=== PATIENT | female | born 1970 | race Caucasian/White ===

== ENCOUNTER 2021-02-23 14:30 | Emergency (ER) | payer MEDICAID, SELFPAY ==
[2021-02-23 14:36] VITALS: BP 152/103; PULSE 93; RESP 20; TEMP 36.8; O2SAT 98
--- NOTE | 2021-02-23 14:58 | XR_ITS ---
WS: [id number] Portable AP upright chest, 02/23/2021 Clinical Data: dyspnea/cough Comparison: Portable chest, 10/17/2018. Findings: No nodules, masses or effusions are seen. The heart is normal. The pulmonary vascularity is not increased. No pneumonia or pneumothorax is seen. There are clips in the right upper quadrant fro m a cholecystectomy. XR/XR chest 1V portable [id number] Impression: Negative chest.
--- NOTE | 2021-02-23 16:07 | ED_ITS ---
Documented by User: Susan Mcmanus 02/23/21 16:38 HPI - SOB/Dyspnea General: Chief Complaint: Shortness of Breath/Dyspnea Stated Complaint: DIFF BREATHING, ELEV TEMP, N/V, COUGH/HX ASTHMA Time Seen by Provider: 02/23/21 16:02 Source: patient Mode of arrival: ambulatory History of Present Illness: HPI Narrative: fever, chills, NVD, sinus pressure, SOB MD elicited complaint: shortness of breath and cough Severity: moderate Exacerbating factors: coughing Associated symptoms: Reports cough, fever(s), nausea and vomiting Review of Systems General: Reports: 10 or more systems reviewed and unremarkable except in HPI and below Const: Reports: fever(s), chills and body aches ENMT: Denies: throat pain Resp: Reports: dyspnea GI: Reports: nausea, vomiting and diarrhea Physical Exam Const: COMMON NORMALS: no acute distress, patient oriented x3, no limitations and alert GENERAL APPEARANCE: cooperative and comfortable ORIENTATION/CONSCIOUSNESS: Yes awake, Yes oriented to person, Yes oriented to place and Yes oriented to time HENMT: COMMON NORMALS: normocephalic, atraumatic, external ears normal, EAC's normal, TM's normal bilaterally and Normal external nose present HEAD & SCALP: normal to inspection, normocephalic and atraumatic FACE & SINUS: normal facial exam, sinuses nontender and face symmetric NOSE: Normal external nose present, Normal nares present and No nasal discharge present EXTERNAL EAR: Yes external ears normal EXTERNAL AUDITORY CANAL: EAC's normal TYMPANIC MEMBRANE: TM's normal bilaterally MOUTH: Normal oral and palatal mucosa present, lip normal and tongue normal THROAT: posterior oropharynx normal, tonsils normal and uvula midline Eye: COMMON NORMALS: Equal, round and reactive pupils present, EOMs intact bilaterally and conjunctivae normal GENERAL EYE: appearance normal, both eyes and all related structures and normal light reflex EYELID: eyelids normal CONJUNCTIVA: Yes conjunctivae normal PUPIL: Yes Equal, round and reactive pupils present EOM: Yes EOM abnormal DIRECT OPHTHALMOSCOPY: Yes normal light reflex Neck/C-Spine: COMMON NORMALS: full ROM, no lymphadenopathy, supple, no meningeal signs, no JVD and Thyroid normal GENERAL: Yes normal visual inspection THYROID: Thyroid normal CERVICAL SPINE: Yes cervical ROM normal and Yes normal cervical lordosis Lymph: LYMPHATIC: no lymphadenopathy noted Chest: COMMONS NORMALS: normal inspection of the chest and normal palpation of entire chest wall Resp: COMMON NORMALS: normal respiratory effort, No retractions and clear to auscultation bilaterally AUSCULTATION: clear to auscultation bilaterally Cardio: COMMON NORMALS: no JVD, regular rate, regular rhythm, S1 normal heart sound present, S2 normal heart sound present, No gallops present (Cardio), No clicks present (Cardio), No murmurs present (Cardio), No rub (Cardio) and Per ipheral pulses 2+ throughout RATE: regular rate RHYTHM: regular rhythm HEART SOUNDS: S1 normal heart sound present and S2 normal heart sound present PERIPHERAL PULSES: Peripheral pulses 2+ throughout GI: COMMON NORMALS: Normal to inspection, nondistended, normoactive bowel sounds present, Soft to palpation, non-tender and no masses PALPATION: Yes Soft to palpation : COMMON NORMALS: Yes no CVA tenderness and Yes normal external appearance BLADDER/KIDNEY EXAM: Yes no CVA tenderness Back/Pelvis: COMMON NORMALS: no CVA tenderness, thoracic and lumbar spine normal to inspection, no thoracic nor lumbar tenderness and thoraco-lumbar ROM normal Extremity: COMMON NORMALS: normal to inspection, full ROM, capillary refill normal, no joint enlargement, no clubbing, cyanosis or edema, no calf tenderness and no pedal edema GENERAL: Yes normal exam except as noted Neuro: COMMON NORMALS: patient oriented x3, moves all extremities, no focal motor deficits, no sensory deficits noted and gait normal SENSORIU M/ORIENTATION: Yes alert, Yes oriented to person, Yes oriented to place and Yes oriented to time MENINGEAL SIGNS: Yes no meningeal signs Psych: COMMON NORMALS: mental status grossly normal, Normal thought process present, cooperative, normal affect, speech normal and activity/motor behavior normal SPEECH: Yes normal speech THOUGHT PROCESS: Normal thought process present Skin: COMMON NORMALS: no rashes or lesions noted, no wounds and turgor normal GENERAL SKIN EXAM: no rashes or lesions noted and turgor normal Course ED course: Pt presents to Er with complaints of sinus pressure, NVD, fever, chills, and coughing. CXR is negative for pneumonia. Labs drawn and are awaiting flu and covid swabs. IV fluids and breathing tx ordered. Vital Signs: Vital signs: Vital Signs Temperature 98.3 F 02/23/21 14:36 Pulse Rate 90 02/23/21 18:20 Respiratory Rate 18 02/23/21 18:20 Blood Pressure 136/99 02/23/21 18:20 Pulse Oximetry 97 02/23/21 18:20 MDM - SOB/Dyspnea Lab Data: Labs: Lab Results 02/23/21 02/23/21 02/23/21 Range/Units 17:00 17:00 17:00 WBC 6.1 (4.0-10.0) 10^3/ uL RBC 4.66 (4.1-5.3) 10^6/u L Hgb 13.5 (11.5-15.3) g/dL Hct 43.7 (37.0-47.0) % MCV 93.8 (81-99) fL MCH 29.0 (28.0-34.0) pg MCHC 30.9 (30.0-36.0) g/dL RDW 13.7 (12.1-15.1) % Plt Count 268 (130-400) 10^3/c mm MPV 10.3 (7.4-10.4) fL Neut % (Auto) 60.9 % Lymph % (Auto) 24.4 % [place] % (Auto) 10.7 % Eos % (Auto) 3.1 % Baso % (Auto) 0.7 % Neut # (Auto) 3.74 (1.8-7.7) 10^3/u L Lymph # (Auto) 1.5 (0.8-4.8) 10^3/u L [place] # (Auto) 0.7 (0.2-0.9) 10^3/u L Eos # (Auto) 0.2 (0.0-0.8) 10^3/u L Baso # (Auto) 0.0 (0.0-0.1) 10^3/u L Nucleated RBC % (a uto) 0 % Nucleated RBCs # 0.0 /100WBC Sodium 139 (136-145) mmol/L Potassium 4.0 (3.5-5.1) mmol/L Chloride 102 (98-107) mmol/L Carbon Dioxide 25 (22-29) mmol/L Anion Gap 16.0 (5-19) BUN 10 (6-20) mg/dL Creatinine 0.5 (0.5-0.9) mg/dL GFR Calculation 131.1 H (90-130) mL/min Glucose 95 (65-115) mg/dL Calculated Osmolal ity 287 (285-295) mOsm/k g Calcium 8.2 L (8.5-10.5) mg/dL Total Bilirubin 0.7 (0.15-1.2) mg/dL AST 10 (0-32) U/L ALT 9 (0-33) U/L Alkaline Phosphata se 99 (35-105) IU/L Total Protein 6.6 (6.6-8.7) g/dL Albumin 3.9 (3.5-5.2) g/dL Globulin 2.7 (1.3-4.6) g/dL Urine Color (Yellow) Urine Appearance (CLEAR) Urine pH (5-7) Ur Specific Gravit y (1.005-1.030) Urine Protein (Negative) Urine Glucose (UA) (Normal) Urine Ketones (Negative) Urine Blood (Negative) Urine Nitrate (Negative) Urine Bilirubin (Negative) Urine Urobilinogen (Negative) mg/dL Ur Leukocyte Radha ase (Negative) Urine RBC (0-2) /hpf Urine WBC (0-5) /hpf Ur Squamous Epith Cells (0-5) /hpf Amorphous Sediment Urine Bacteria (NONE) /hpf Influenza Type A A g Negative (Negative) Influenza Type B A g Negative (Negative) 02/23/21 Range/Units 17:00 WBC (4.0-10.0) 10^3/ uL RBC (4.1-5.3) 10^6/u L Hgb (11.5-15.3) g/dL Hct (37.0-47.0) % MCV (81-99) fL MCH (28.0-34.0) pg MCHC (30.0-36.0) g/dL RDW (12.1-15.1) % Plt Count (130-400) 10^3/c mm MPV (7.4-10.4) fL Neut % (Auto) % Lymph % (Auto) % [place] % (Auto) % Eos % (Auto) % Baso % (Auto) % Neut # (Auto) (1.8-7.7) 10^3/u L Lymph # (Auto) (0.8-4.8) 10^3/u L [place] # (Auto) (0.2-0.9) 10^3/u L Eos # (Auto) (0.0-0.8) 10^3/u L Baso # (Auto) (0.0-0.1) 10^3/u L Nucleated RBC % (a uto) % Nucleated RBCs # /100WBC Sodium (136-145) mmol/L Potassium (3.5-5.1) mmol/L Chloride (98-107) mmol/L Carbon Dioxide (22-29) mmol/L Anion Gap (5-19) BUN (6-20) mg/dL Creatinine (0.5-0.9) mg/dL GFR Calculation (90-130) mL/min Glucose (65-115) mg/dL Calculated Osmolal ity (285-295) mOsm/k g Calcium (8.5-10.5) mg/dL Total Bilirubin (0.15-1.2) mg/dL AST (0-32) U/L ALT (0-33) U/L Alkaline Phosphata se (35-105) IU/L Total Protein (6.6-8.7) g/dL Albumin (3.5-5.2) g/dL Globulin (1.3-4.6) g/dL Urine Color Straw (Yellow) Urine Appearance Clear (CLEAR) Urine pH 7 (5-7) Ur Specific Gravit y 1.010 (1.005-1.030) Urine Protein Neg (Negative) Urine Glucose (UA) Norm (Normal) Urine Ketones Negative (Negative) Urine Blood 2+ H (Negative) Urine Nitrate Negative (Negative) Urine Bilirubin Neg (Negative) Urine Urobilinogen 1 H (Negative) mg/dL Ur Leukocyte Radha ase Negative (Negative) Urine RBC 0-4 H (0-2) /hpf Urine WBC 0-4 H (0-5) /hpf Ur Squamous Epith Cells 10-15 H (0-5) /hpf Amorphous Sediment Not Reportable Urine Bacteria Trace (NONE) /hpf Influenza Type A A g (Negative) Influenza Type B A g (Negative) Imaging Data^: Other Xray: Radiologist's impression: [address] [address] XRay Report Signed Patient: Nani Hernandez Unit #: [id number] : 1970 Age/Sex: 50 / F ADM Date: 02/23/21 Loc: ER Room/Bed: Attending Dr: Ordering Provider/Ordering MD: Juan Sutton DO Date of Service: 02/23/21 Procedure(s): XR chest 1V portable [id number] Accession Number(s): [id number] Report Number: [id number] WS: [id number] Portable AP upright chest, 02/23/2021 Clinical Data: dyspnea/cough Comparison: Portable chest, 10/17/2018. Findings: No nodules, masses or effusions are seen. The heart is normal. The pulmonary vascularity is not increased. No pneumonia or pneumothorax is seen. There are clips in the right upper quadrant from a cholecystectomy. XR/XR chest 1V portable [id number] Impression: Negative chest. Dictated By: Isabel Combs MD Signed By: Isabel Combs MD Signed Date/Time: 02/23/211539 DD/ 1539 Discharge Plan Discharge Patient Disposition: Home Clinical Impression: Acute viral syndrome Condition: Stable Prescriptions: No Action prazosin 1 mg Capsule 1 mg PO BEDTIME RF: 0 hydroxyzine HCl 50 mg Tablet 50 mg PO TID PRN (Reason: Anxiety) RF: 0 amlodipine 5 mg Tablet 5 mg PO BEDTIME RF: 0 meloxicam 7.5 mg Tablet 7.5 mg PO DAILY RF: 0 candesartan 16 mg Tablet 16 mg PO BID RF: 0 hydrochlorothiazide 25 mg Tablet 25 mg PO DAILY RF: 0 hydroxychloroquine 200 mg Tablet 200 mg PO BID RF: 0 albuterol sulfate 90 mcg/actuation Hfa Aerosol Inhaler 2 puff INHALATION 6XD PRN (Reason: Shortness Of Breath) RF: 0 naproxen 500 mg Tablet 500 mg PO BID RF: 0 Aimovig Autoinjector 140 mg/mL Auto-Injector 140 mg SUBCUT Q30D RF: 0 Zoloft 100 mg Tablet 100 mg PO DAILY RF: 0 chlorthalidone 50 mg Tablet 50 mg PO DAILY RF: 0 pantoprazole 40 mg Tablet,Delayed Release (Dr/Ec) 40 mg PO DAILY RF: 0 Benadryl 25 mg Capsule 25 mg PO BEDTIME PRN (Reason: Insomnia) RF: 0 Depakote ER 500 mg Tablet Extended Release 24 Hr 1,500 mg PO BEDTIME RF: 0 trazodone 300 mg Tablet 300 mg PO BEDTIME RF: 0 aspirin 81 mg Tablet,Chewable 81 mg PO DAILY RF: 0 gabapentin 100 mg Capsule 100 mg PO TID RF: 0 Abilify 10 mg Tablet 10 mg PO DAILY RF: 0 Discharge Orders: Discharge ED (Routine); Ordered 02/23/21 Ordered By: Eladio Whitman Referrals: Ruba Cabrera DO [Primary Care Provider] - Discharge Diet: Usual diet Discharge Activity: Increase activity as tolerated Patient Instructions: Viral Syndrome (ED) Activity Restrictions/Additional Instructions: Drink plenty of fluids. Can take Tylenol and/or ibuprofen for fever. Follow-up your family medical doctor if no significant improvement. Off work tomorrow. Stand Alone Forms: Work/School Release Coding Level of Care Code ED Clinical Trial Educator for Chg Fwd Exam Comprehensive Documented by User: SHELTON Larose 02/23/21 21:09 HPI - SOB/Dyspnea General: Chief Complaint: Shortness of Breath/Dyspnea Stated Complaint: DIFF BREATHING, ELEV TEMP, N/V, COUGH/HX ASTHMA Time Seen by Provider: 02/23/21 16:02 Course Vital Signs: Vital signs: Vital Signs Temperature 98.3 F 02/23/21 14:36 Pulse Rate 90 02/23/21 18:20 Respiratory Rate 18 02/23/21 18:20 Blood Pressure 136/99 02/23/21 18:20 Pulse Oximetry 97 02/23/21 18:20 MDM - SOB/Dyspnea MDM Narrative: Medical decision making narrative: Patient feeling much better on discharge labs normal. X-ray looks good. Patient follow-up family provider Lab Data: Labs: Lab Results 02/23/21 02/23/21 02/23/21 Range/Units 17:00 17:00 17:00 WBC 6.1 (4.0-10.0) 10^3/ uL RBC 4.66 (4.1-5.3) 10^6/u L Hgb 13.5 (11.5-15.3) g/dL Hct 43.7 (37.0-47.0) % MCV 93.8 (81-99) fL MCH 29.0 (28.0-34.0) pg MCHC 30.9 (30.0-36.0) g/dL RDW 13.7 (12.1-15.1) % Plt Count 268 (130-400) 10^3/c mm MPV 10.3 (7.4-10.4) fL Neut % (Auto) 60.9 % Lymph % (Auto) 24.4 % [place] % (Auto) 10.7 % Eos % (Auto) 3.1 % Baso % (Auto) 0.7 % Neut # (Auto) 3.74 (1.8-7.7) 10^3/u L Lymph # (Auto) 1.5 (0.8-4.8) 10^3/u L [place] # (Auto) 0.7 (0.2-0.9) 10^3/u L Eos # (Auto) 0.2 (0.0-0.8) 10^3/u L Baso # (Auto) 0.0 (0.0-0.1) 10^3/u L Nucleated RBC % (a uto) 0 % Nucleated RBCs # 0.0 /100WBC Sodium 139 (136-145) mmol/L Potassium 4.0 (3.5-5.1) mmol/L Chloride 102 (98-107) mmol/L Carbon Dioxide 25 (22-29) mmol/L Anion Gap 16.0 (5-19) BUN 10 (6-20) mg/dL Creatinine 0.5 (0.5-0.9) mg/dL GFR Calculation 131.1 H (90-130) mL/min Glucose 95 (65-115) mg/dL Calculated Osmolal ity 287 (285-295) mOsm/k g Calcium 8.2 L (8.5-10.5) mg/dL Total Bilirubin 0.7 (0.15-1.2) mg/dL AST 10 (0-32) U/L ALT 9 (0-33) U/L Alkaline Phosphata se 99 (35-105) IU/L Total Protein 6.6 (6.6-8.7) g/dL Albumin 3.9 (3.5-5.2) g/dL Globulin 2.7 (1.3-4.6) g/dL Urine Color (Yellow) Urine Appearance (CLEAR) Urine pH (5-7) Ur Specific Gravit y (1.005-1.030) Urine Protein (Negative) Urine Glucose (UA) (Normal) Urine Ketones (Negative) Urine Blood (Negative) Urine Nitrate (Negative) Urine Bilirubin (Negative) Urine Urobilinogen (Negative) mg/dL Ur Leukocyte Radha ase (Negative) Urine RBC (0-2) /hpf Urine WBC (0-5) /hpf Ur Squamous Epith Cells (0-5) /hpf Amorphous Sediment Urine Bacteria (NONE) /hpf Influenza Type A A g Negative (Negative) Influenza Type B A g Negative (Negative) 02/23/21 Range/Units 17:00 WBC (4.0-10.0) 10^3/ uL RBC (4.1-5.3) 10^6/u L Hgb (11.5-15.3) g/dL Hct (37.0-47.0) % MCV (81-99) fL MCH (28.0-34.0) pg MCHC (30.0-36.0) g/dL RDW (12.1-15.1) % Plt Count (130-400) 10^3/c mm MPV (7.4-10.4) fL Neut % (Auto) % Lymph % (Auto) % [place] % (Auto) % Eos % (Auto) % Baso % (Auto) % Neut # (Auto) (1.8-7.7) 10^3/u L Lymph # (Auto) (0.8-4.8) 10^3/u L [place] # (Auto) (0.2-0.9) 10^3/u L Eos # (Auto) (0.0-0.8) 10^3/u L Baso # (Auto) (0.0-0.1) 10^3/u L Nucleated RBC % (a uto) % Nucleated RBCs # /100WBC Sodium (136-145) mmol/L Potassium (3.5-5.1) mmol/L Chloride (98-107) mmol/L Carbon Dioxide (22-29) mmol/L Anion Gap (5-19) BUN (6-20) mg/dL Creatinine (0.5-0.9) mg/dL GFR Calculation (90-130) mL/min Glucose (65-115) mg/dL Calculated Osmolal ity (285-295) mOsm/k g Calcium (8.5-10.5) mg/dL Total Bilirubin (0.15-1.2) mg/dL AST (0-32) U/L ALT (0-33) U/L Alkaline Phosphata se (35-105) IU/L Total Protein (6.6-8.7) g/dL Albumin (3.5-5.2) g/dL Globulin (1.3-4.6) g/dL Urine Color Straw (Yellow) Urine Appearance Clear (CLEAR) Urine pH 7 (5-7) Ur Specific Gravit y 1.010 (1.005-1.030) Urine Protein Neg (Negative) Urine Glucose (UA) Norm (Normal) Urine Ketones Negative (Negative) Urine Blood 2+ H (Negative) Urine Nitrate Negative (Negative) Urine Bilirubin Neg (Negative) Urine Urobilinogen 1 H (Negative) mg/dL Ur Leukocyte Radha ase Negative (Negative) Urine RBC 0-4 H (0-2) /hpf Urine WBC 0-4 H (0-5) /hpf Ur Squamous Epith Cells 10-15 H (0-5) /hpf Amorphous Sediment Not Reportable Urine Bacteria Trace (NONE) /hpf Influenza Type A A g (Negative) Influenza Type B A g (Negative) Discharge Plan Discharge Patient Disposition: Home Clinical Impression: Acute viral syndrome Condition: Stable Prescriptions: No Action prazosin 1 mg Capsule 1 mg PO BEDTIME RF: 0 hydroxyzine HCl 50 mg Tablet 50 mg PO TID PRN (Reason: Anxiety) RF: 0 amlodipine 5 mg Tablet 5 mg PO BEDTIME RF: 0 meloxicam 7.5 mg Tablet 7.5 mg PO DAILY RF: 0 candesartan 16 mg Tablet 16 mg PO BID RF: 0 hydrochlorothiazide 25 mg Tablet 25 mg PO DAILY RF: 0 hydroxychloroquine 200 mg Tablet 200 mg PO BID RF: 0 albuterol sulfate 90 mcg/actuation Hfa Aerosol Inhaler 2 puff INHALATION 6XD PRN (Reason: Shortness Of Breath) RF: 0 naproxen 500 mg Tablet 500 mg PO BID RF: 0 Aimovig Autoinjector 140 mg/mL Auto-Injector 140 mg SUBCUT Q30D RF: 0 Zoloft 100 mg Tablet 100 mg PO DAILY RF: 0 chlorthalidone 50 mg Tablet 50 mg PO DAILY RF: 0 pantoprazole 40 mg Tablet,Delayed Release (Dr/Ec) 40 mg PO DAILY RF: 0 Benadryl 25 mg Capsule 25 mg PO BEDTIME PRN (Reason: Insomnia) RF: 0 Depakote ER 500 mg Tablet Extended Release 24 Hr 1,500 mg PO BEDTIME RF: 0 trazodone 300 mg Tablet 300 mg PO BEDTIME RF: 0 aspirin 81 mg Tablet,Chewable 81 mg PO DAILY RF: 0 gabapentin 100 mg Capsule 100 mg PO TID RF: 0 Abilify 10 mg Tablet 10 mg PO DAILY RF: 0 Discharge Orders: Discharge ED (Routine); Ordered 02/23/21 Ordered By: Eladio Whitman Referrals: Ruba Cabrera DO [Primary Care Provider] - Discharge Diet: Usual diet Discharge Activity: Increase activity as tolerated Patient Instructions: Viral Syndrome (ED) Activity Restrictions/Additional Instructions: Drink plenty of fluids. Can take Tylenol and/or ibuprofen for fever. Follow-up your family medical doctor if no significant improvement. Off work tomorrow. Stand Alone Forms: Work/School Release Coding Level of Care Code ED Clinical Trial Educator for Francine Fwd Exam Comprehensive
[2021-02-23] MEDS: ipratropium 0.5 mg/2.5 mL Neb 0.25 MG INHALATION ×2 (16:51→16:52)
[2021-02-23 16:54] VITALS: PULSE 82; RESP 22; O2SAT 97
[2021-02-23 17:08] VITALS: PULSE 98
[2021-02-23 17:11] LABS: Basophils % 0.7 %; Eosinophils # 0.2 10^3/uL (0.0-0.8); Eosinophils % 3.1 %; Hematocrit 43.7 % (37.0-47.0); Hemoglobin 13.5 g/dL (11.5-15.3); Lymphocytes # 1.5 10^3/uL (0.8-4.8); Lymphocytes % 24.4 %; Mean Corpuscular HGB Conc 30.9 g/dL (30.0-36.0); Mean Corpuscular Volume 93.8 fL (81-99); Mean Platelet Volume 10.3 fL (7.4-10.4); Monocytes # 0.7 10^3/uL (0.2-0.9); Monocytes % 10.7 %; Neutrophils # 3.74 10^3/uL (1.8-7.7); Neutrophils % 60.9 %; Nucleated Red Blood Cells % 0 %; Platelet Count 268 10^3/cmm (130-400); Red Blood Count 4.66 10^6/uL (4.1-5.3); Red Cell Distribution Width 13.7 % (12.1-15.1); White Blood Count 6.1 10^3/uL (4.0-10.0)
[2021-02-23] MEDS: sodium chloride 0.9% 500 ML IV (17:13)
[2021-02-23] MEDS: ondansetron 2 mg/ML SDV 2 mL 4 MG IVP (17:13)
[2021-02-23 17:16] VITALS: BP 146/107; PULSE 90; RESP 20; O2SAT 98
[2021-02-23 17:22] LABS: Add Urine Microscopic? YES; Bilirubin Urine Neg (Negative); Blood Urine 2+ (Negative); Glucose Urine UA Norm (Normal); Ketones Urine Negative (Negative); Leukocyte Esterase Urine Negative (Negative); Nitrate Urine Negative (Negative); Protein Urine Neg (Negative); Urine Appearance Clear (CLEAR); Urine Color Straw (Yellow); Urobilinogen Urine 1 mg/dL (Negative); pH Urine 7 (5-7)
[2021-02-23 17:23] LABS: Add Urine Culture? No; Bacteria Urine TRACE /hpf; RBC Urine 0-4 /hpf (0-2); WBC Urine 0-4 /hpf (0-5)
[2021-02-23 17:48] LABS: Alanine Aminotransferase 9 U/L (0-33); Albumin Level 3.9 g/dL (3.5-5.2); Alkaline Phosphatase 99 IU/L (35-105); Aspartate Amino Transferase 10 U/L (0-32); Blood Urea Nitrogen 10 mg/dL (6-20); Calcium 8.2 mg/dL (8.5-10.5); Carbon Dioxide 25 mmol/L (22-29); Chloride 102 mmol/L (98-107); Globulin 2.7 g/dL (1.3-4.6); Glomerular Filtration Rate 131.1 mL/min (90-130); Glucose 95 mg/dL (65-115); Osmolality Calculated 287 mOsm/kg (285-295); Sodium 139 mmol/L (136-145); Total Bilirubin 0.7 mg/dL (0.15-1.2); Total Protein 6.6 g/dL (6.6-8.7)
[2021-02-23 18:20] VITALS: BP 136/99; PULSE 90; RESP 18; O2SAT 97
[2021-02-23 18:42] LABS: Influenza A by IFA Negative (Negative); Influenza B by IFA Negative (Negative)
== END 2021-02-23 18:21 | disposition home or self-care (01) ==
PROVIDERS: Family Medicine; Nurse Practitioner Family; Emergency Provider Nurse Practitioner Family; PCP Internal Medicine
DX: B34.9 Viral infection, unspecified (principal); Z79.82 Long term (current) use of aspirin
CPT/HCPCS: 71045; 80053; 81001; 85025; 87804; 94640; 96361; 96374; 99284; J2405; J7040; J7611; J7644

== ENCOUNTER 2021-02-25 17:59 | Emergency (ER) | payer MEDICAID, SELFPAY ==
[2021-02-25 18:18] VITALS: BP 200/151; PULSE 90; RESP 16; TEMP 36.8; O2SAT 98; BMI 41.1
--- NOTE | 2021-02-25 19:01 | XRR_ITS ---
PROCEDURE INFORMATION: Exam: XR Chest Exam date and time: 02/25/2021 7:22 PM Age: 50 years old Clinical indication: Cough; Patient HX: Increased SOB, n/v TECHNIQUE: Imaging protocol: XR of the chest. Views: 1 view. COMPARISON: CR XR chest 1V portable [id number] 02/23/2021 3:27 PM FINDINGS: Lungs: The lungs are clear bilaterally. Pulmonary vasculature within normal limits. Pleural space: No visible pneumothorax or pleural effusion. Heart/Mediastinum: Cardiomediastinal silhouette contour within normal limits. Bones/joints: No emergent findings identified. XR/XR chest 1V portable [id number] IMPRESSION: 1. No radiographic findings of acute cardiopulmonary disease.
--- NOTE | 2021-02-25 19:04 | ED_ITS ---
HPI - COVID General: Chief Complaint: Shortness of Breath/Dyspnea Stated Complaint: covid exposure, headache, n/v/d Time Seen by Provider: 02/25/21 19:00 Triage information: No fever, cough or shortness of breath . No known COVID + exposure last 14 days History of Present Illness: HPI Narrative: Patient states that she was exposed to Covid via her sister who tested positive for today. Patient says she has had some nausea and vomiting and a cough here lately. Has been out of her medication since she moved here. Has not been taking blood pressure medicine. MD complaint: reported COVID exposure Prior covid testing: no COVID 19 common symptoms: positive cough, non-productive cough, dyspnea, nausea and vomiting; negative fever(s), chills, body aches, headache(s), throat pain or nasal congestion COVID 19 other sytmptoms: negative chest pain Onset (ago): day(s) Severity: mild Pertinent comorbid conditions: hypertension Treatment prior to arrival: none COVID Results: No Data to Display Review of Systems Const: Denies: fever(s), chills or body aches Eyes: Denies: change in vision or blurry vision ENMT: Denies: throat pain or nasal congestion Card: Denies: chest pain or dyspnea on exertion Resp: Reports: dyspnea and non-productive cough GI: Reports: nausea and vomiting Musc: Denies: extremity pain Skin/Breast: Denies: rash Neuro: Denies: headache(s) Psych: Denies: anxiety or depression Rui/Lymph: Denies: easy bruising Physical Exam Const: COMMON NORMALS: no acute distress, average body habitus and patient oriented x3 HENMT: COMMON NORMALS: normocephalic HEAD & SCALP: normal to inspection and normocephalic FACE & SINUS: normal facial exam Eye: COMMON NORMALS: conjunctivae normal GENERAL EYE: appearance normal, both eyes and all related structures CONJUNCTIVA: Yes conjunctivae normal Neck/C-Spine: COMMON NORMALS: no JVD Chest: COMMONS NORMALS: normal inspection of the chest Resp: COMMON NORMALS: normal respiratory effort and clear to auscultation bilaterally AUSCULTATION: clear to auscultation bilaterally Cardio: COMMON NORMALS: no JVD, regular rate and regular rhythm RATE: regular rate RHYTHM: regular rhythm GI: COMMON NORMALS: Normal to inspection, nondistended, normoactive bowel sounds present Extremity: COMMON NORMALS: normal to inspection and full ROM Neuro: COMMON NORMALS: patient oriented x3 Course Vital Signs: Vital signs: Vital Signs Temperature 98.2 F 02/25/21 18:18 Pulse Rate 90 02/25/21 18:18 Respiratory Rate 16 02/25/21 18:18 Blood Pressure 200/151 02/25/21 18:18 Pulse Oximetry 98 02/25/21 18:18 MDM - COVID COVID Results: No Data to Display Discharge Plan Discharge Prescriptions: No Action prazosin 1 mg Capsule 1 mg PO BEDTIME RF: 0 hydroxyzine HCl 50 mg Tablet 50 mg PO TID PRN (Reason: Anxiety) RF: 0 amlodipine 5 mg Tablet 5 mg PO BEDTIME RF: 0 meloxicam 7.5 mg Tablet 7.5 mg PO DAILY RF: 0 candesartan 16 mg Tablet 16 mg PO BID RF: 0 hydrochlorothiazide 25 mg Tablet 25 mg PO DAILY RF: 0 hydroxychloroquine 200 mg Tablet 200 mg PO BID RF: 0 albuterol sulfate 90 mcg/actuation Hfa Aerosol Inhaler 2 puff INHALATION 6XD PRN (Reason: Shortness Of Breath) RF: 0 naproxen 500 mg Tablet 500 mg PO BID RF: 0 Aimovig Autoinjector 140 mg/mL Auto-Injector 140 mg SUBCUT Q30D RF: 0 Zoloft 100 mg Tablet 100 mg PO DAILY RF: 0 chlorthalidone 50 mg Tablet 50 mg PO DAILY RF: 0 pantoprazole 40 mg Tablet,Delayed Release (Dr/Ec) 40 mg PO DAILY RF: 0 Benadryl 25 mg Capsule 25 mg PO BEDTIME PRN (Reason: Insomnia) RF: 0 Depakote ER 500 mg Tablet Extended Release 24 Hr 1,500 mg PO BEDTIME RF: 0 trazodone 300 mg Tablet 300 mg PO BEDTIME RF: 0 aspirin 81 mg Tablet,Chewable 81 mg PO DAILY RF: 0 gabapentin 100 mg Capsule 100 mg PO TID RF: 0 Abilify 10 mg Tablet 10 mg PO DAILY RF: 0 Coding Level of Care Code ED Enterprise Integration Architect for Francine Fwd
[2021-02-25] MEDS: ondansetron 2 mg/ML SDV 2 mL 4 MG IM (19:33)
[2021-02-25 19:34] VITALS: BP 183/136
[2021-02-25] MEDS: cloNIDine 0.1 mg Tablet 0.2 MG PO (19:34)
[2021-02-25] MEDS: benzonatate 100 mg Capsule 200 MG PO (19:35)
[2021-02-25] MEDS: amlodipine 5 mg Tablet PO (19:35)
[2021-02-25 20:00] VITALS: BP 187/129; PULSE 70; RESP 18; TEMP 37.2; O2SAT 97
[2021-02-25 20:50] VITALS: BP 134/88; PULSE 74; RESP 18; TEMP 36.7; O2SAT 98
[2021-02-26 14:15] LABS: Coronavirus Test Green County Not Detected
--- NOTE | 2021-02-26 16:12 | PC.NURSE ---
notified pt of - COVID results
== END 2021-02-25 21:00 | disposition home or self-care (01) ==
PROVIDERS: Emergency Provider Nurse Practitioner Family; PCP Internal Medicine
DX: Z20.822 Contact with and (suspected) exposure to COVID-19 (principal); Z79.82 Long term (current) use of aspirin
CPT/HCPCS: 71045; 87426; 87635; 96372; 99283; J2405

== ENCOUNTER 2021-03-03 12:14 | Emergency (ER) | payer MEDICAID, SELFPAY ==
[2021-03-03] VITALS (8 sets, daily range): BP systolic 162–190; BP diastolic 102–111; PULSE 65–76; RESP 18; TEMP 36.8–37.1; O2SAT 93–98; BMI 39.4
--- NOTE | 2021-03-03 12:39 | CTR_ITS ---
PROCEDURE INFORMATION: Exam: CT Abdomen And Pelvis With Contrast Exam date and time: 03/03/2021 1:40 PM Age: 50 years old Clinical indication: Abdominal pain; Prior surgery; Surgery date: 6+ months; Surgery type: Gb; Additional info: Abd pain TECHNIQUE: Imaging protocol: Computed tomography of the abdomen and pelvis with contrast. Radiation optimization: All CT scans at this facility use at least one of these dose optimization techniques: automated exposure control; mA and/or kV adjustment per patient size (includes targeted exams where dose is matched to clinical indication); or iterative reconstruction. Contrast material: OMNIPAQUE 300; Contrast volume: 95 ml; Contrast route: INTRAVENOUS (IV); COMPARISON: No relevant prior studies available. RADIATION DOSE METRICS: Total DLP (mGy-cm): 1839.81 FINDINGS: Lungs: 3 mm left lower lobe pulmonary nodule. Axial series 2, image 1. Followup as discussed below. Liver: Low density focal fatty infiltration within the liver, anterior to the falciform ligament. This is a common finding. Gallbladder and bile ducts: Surgical clips in the gallbladder fossa consistent with cholecystectomy. Pancreas: Normal. No ductal dilation. Spleen: Normal. No splenomegaly. Adrenal glands: Normal. No mass. Kidneys and ureters: Normal. No hydronephrosis. Stomach and bowel: Mild colonic diverticulosis. Appendix: Normal appendix. Intraperitoneal space: Unremarkable. No free air. No significant fluid collection. Vasculature: Unremarkable. No abdominal aortic aneurysm. Lymph nodes: Unremarkable. No enlarged lymph nodes. Urinary bladder: Unremarkable as visualized. Reproductive: Status post hysterectomy. Bones/joints: Unremarkable. No acute fracture. Soft tissues: Unremarkable. CT/CT abdomen pelvis w con* [id number] IMPRESSION: 1. 3 mm left lower lobe pulmonary nodule. Axial series 2, image 1. Followup as discussed below. 2. No acute findings. For patients at low risk (minimal or absent history of smoking and of other known risk factors), no routine follow-up is indicated. For patients at high risk (history of smoking or of other known risk factors), consider optional CT Chest at 12 months. (Reference: Stacy) References: Stacy Nelson et al. Guidelines for Management of Incidental Pulmonary Nodules Detected on CT Images: From the Fleischner Society 2017. Radiology. 2017;284(1):228-243. Radiation Dose CTDIVOL = (mGy): DLP = 1839.81 (mGy-cm)
--- NOTE | 2021-03-03 12:39 | XRR_ITS ---
PROCEDURE INFORMATION: Exam: XR Chest Exam date and time: 03/03/2021 12:40 PM Age: 50 years old Clinical indication: Cough and dyspnea; Additional info: Dyspnea/cough TECHNIQUE: Imaging protocol: XR of the chest. Views: 1 view. COMPARISON: CR XR chest 1V portable [id number] 02/25/2021 7:33 PM FINDINGS: Lungs: Unremarkable. No consolidation. Pleural spaces: Unremarkable. No pleural effusion. No pneumothorax. Heart/Mediastinum: Unremarkable. No cardiomegaly. Bones/joints: Unremarkable. XR/XR chest 1V portable [id number] IMPRESSION: No acute findings.
[2021-03-03 13:05] LABS: Protein Urine Neg (Negative); Urine Appearance Cloudy (CLEAR); Urine Color Yellow (Yellow); pH Urine 7 (5-7)
[2021-03-03 13:06] LABS: Add Urine Microscopic? YES; Bilirubin Urine Neg (Negative); Blood Urine 2+ (Negative); Glucose Urine UA Norm (Normal); Ketones Urine Negative (Negative); Leukocyte Esterase Urine 2+ (Negative); Nitrate Urine Positive (Negative); Urobilinogen Urine Norm (Negative)
[2021-03-03] MEDS: ondansetron 2 mg/ML SDV 2 mL 4 MG IVP (13:11)
[2021-03-03] MEDS: morphine 4 mg/mL SDV 1 mL IVP (13:11)
[2021-03-03] MEDS: sodium chloride 0.9% 1,000 ML 999 ML IV (13:12)
[2021-03-03 13:19] LABS: Add Urine Culture? Yes; Bacteria Urine 3+ /hpf; RBC Urine 0-4 /hpf (0-2); Squamous Epithelial Cell Urine RARE /hpf (0-5); Transitional Epi Cells Urine RARE /hpf; WBC Urine 25-40 /hpf (0-5)
[2021-03-03 13:22] LABS: Basophils % 0.6 %; Eosinophils # 0.1 10^3/uL (0.0-0.8); Eosinophils % 1.6 %; Hematocrit 42.3 % (37.0-47.0); Hemoglobin 13.4 g/dL (11.5-15.3); Lymphocytes # 1.7 10^3/uL (0.8-4.8); Mean Corpuscular HGB Conc 31.7 g/dL (30.0-36.0); Mean Corpuscular Hemoglobin 28.8 pg (28.0-34.0); Mean Corpuscular Volume 90.8 fL (81-99); Mean Platelet Volume 10.1 fL (7.4-10.4); Monocytes # 0.5 10^3/uL (0.2-0.9); Monocytes % 9.6 %; Neutrophils # 2.57 10^3/uL (1.8-7.7); Neutrophils % 52.8 %; Nucleated Red Blood Cells % 0 %; Platelet Count 300 10^3/cmm (130-400); Red Blood Count 4.66 10^6/uL (4.1-5.3); Red Cell Distribution Width 13.6 % (12.1-15.1); White Blood Count 4.9 10^3/uL (4.0-10.0)
[2021-03-03 13:46] LABS: Alanine Aminotransferase 9 U/L (0-33); Albumin Level 4.3 g/dL (3.5-5.2); Alkaline Phosphatase 108 IU/L (35-105); Aspartate Amino Transferase 9 U/L (0-32); Blood Urea Nitrogen 9 mg/dL (6-20); Calcium 8.7 mg/dL (8.5-10.5); Carbon Dioxide 30 mmol/L (22-29); Chloride 101 mmol/L (98-107); Globulin 2.9 g/dL (1.3-4.6); Glomerular Filtration Rate 106.3 mL/min (90-130); Glucose 89 mg/dL (65-115); Lipase 36 U/L (13-60); Osmolality Calculated 284 mOsm/kg (285-295); Sodium 138 mmol/L (136-145); Total Protein 7.2 g/dL (6.6-8.7)
[2021-03-03] MEDS: cefTRIAXone 2,000 MG in sodium chloride 0.9% (plus) 50 ML 100 MG IV (13:50)
--- NOTE | 2021-03-03 13:58 | ED_ITS ---
HPI - General Adult General: Chief complaint: General Medical Stated complaint: n/v, body aches, fever Time Seen by Provider: 03/03/21 12:22 History of Present Illness: HPI narrative: 50-year-old female presents emergency room with complaints of abdominal discomfort body aches and fever at home states she has a fever up to 103 times that she takes orally. She refers most of the pain to the right upper quadrant and right flank. She has had a little bit of dysuria as she denies any chest pain. She was seen earlier this week for what I thought was a viral enteritis and advised her just to treat symptoms she states she still persistently not feeling well. Onset (ago): day(s) Location: abdomen Radiation: flank Severity: moderate Quality: stabbing and aching Pain Consistency: constant Relieving factors: none Exacerbating factors: none Associated symptoms: Reports decreased appetite, fevers/chills, malaise and nausea; Deny chest pain, confusion, cough, diaphoresis, dyspnea, headache(s), rash, palpitations, seizures, short of breath, syncope, vomiting or weakness Treatments prior to arrival: none Review of Systems Const: Reports: malaise; Denies: diaphoresis ENMT: Denies: throat pain, ear or mastoid pain, nasal discharge or nasal congestion Card: Denies: chest pain, palpitations or syncope Resp: Denies: dyspnea GI: Reports: nausea; Denies: vomiting : Denies: flank pain, difficulty voiding, dysuria, urinary frequency or urinary urgency Skin/Breast: Denies: rash Neuro: Denies: headache(s) or confusion Physical Exam Const: COMMON NORMALS: no acute distress GENERAL APPEARANCE: cooperative and comfortable ORIENTATION/CONSCIOUSNESS: Yes awake, Yes oriented to person, Yes oriented to place and Yes oriented to time HENMT: COMMON NORMALS: normocephalic, atraumatic and hearing grossly normal bilaterally HEAD & SCALP: normocephalic and atraumatic Neck/C-Spine: COMMON NORMALS: no JVD Resp: COMMON NORMALS: normal respiratory effort, No retractions, No use of accessory muscles and clear to auscultation bilaterally AUSCULTATION: clear to auscultation bilaterally Cardio: COMMON NORMALS: no JVD, regular rate, regular rhythm and No murmurs present (Cardio) RATE: regular rate RHYTHM: regular rhythm GI: COMMON NORMALS: No hepatosplenomegaly present AUSCULTATION: Yes normoactive bowel sounds PALPATION: Yes Tenderness to palpation present (GI) Details: RUQ (Right flank), No Guarding due to palpation present (GI) and Yes No hepatosplenomegaly present : BLADDER/KIDNEY EXAM: Yes CVA tenderness Back/Pelvis: GENERAL BACK: Yes CVA tenderness CVA tenderness: right Extremity: COMMON NORMALS: normal to inspection, capillary refill normal, no clubbing, cyanosis or edema, no calf tenderness and no pedal edema Neuro: SENSORIUM/ORIENTATION: Yes oriented to person, Yes oriented to place and Yes oriented to time Skin: COMMON NORMALS: no rashes or lesions noted GENERAL SKIN EXAM: no rashes or lesions noted Course Vital Signs: Vital signs: Vital Signs Temperature 98.7 F 03/03/21 15:07 Pulse Rate 76 03/03/21 15:07 Respiratory Rate 18 03/03/21 15:07 Blood Pressure 168/102 03/03/21 15:07 Pulse Oximetry 95 03/03/21 15:07 MDM - General Adult MDM Narrative: Medical decision making narrative: White count normal. UA shows cystitis. We will start her on Cipro as well as Pyridium push fluids return if is worsening problems discussed with patient she expressed understanding. Lab Data: Labs: Lab Results 03/03/21 03/03/21 03/03/21 Range/Units 12:47 13:04 13:04 WBC 4.9 (4.0-10.0) 10^3/ uL RBC 4.66 (4.1-5.3) 10^6/u L Hgb 13.4 (11.5-15.3) g/dL Hct 42.3 (37.0-47.0) % MCV 90.8 (81-99) fL MCH 28.8 (28.0-34.0) pg MCHC 31.7 (30.0-36.0) g/dL RDW 13.6 (12.1-15.1) % Plt Count 300 (130-400) 10^3/c mm MPV 10.1 (7.4-10.4) fL Neut % (Auto) 52.8 % Lymph % (Auto) 35.0 % Cass % (Auto) 9.6 % Eos % (Auto) 1.6 % Baso % (Auto) 0.6 % Neut # (Auto) 2.57 (1.8-7.7) 10^3/u L Lymph # (Auto) 1.7 (0.8-4.8) 10^3/u L Cass # (Auto) 0.5 (0.2-0.9) 10^3/u L Eos # (Auto) 0.1 (0.0-0.8) 10^3/u L Baso # (Auto) 0.0 (0.0-0.1) 10^3/u L Nucleated RBC % (a uto) 0 % Nucleated RBCs # 0.0 /100WBC Sodium 138 (136-145) mmol/L Potassium 4.0 (3.5-5.1) mmol/L Chloride 101 (98-107) mmol/L Carbon Dioxide 30 H (22-29) mmol/L Anion Gap 11.0 (5-19) BUN 9 (6-20) mg/dL Creatinine 0.6 (0.5-0.9) mg/dL GFR Calculation 106.3 (90-130) mL/min Glucose 89 (65-115) mg/dL Calculated Osmolal ity 284 L (285-295) mOsm/k g Calcium 8.7 (8.5-10.5) mg/dL Total Bilirubin 1.0 (0.15-1.2) mg/dL AST 9 (0-32) U/L ALT 9 (0-33) U/L Alkaline Phosphata se 108 H (35-105) IU/L Total Protein 7.2 (6.6-8.7) g/dL Albumin 4.3 (3.5-5.2) g/dL Globulin 2.9 (1.3-4.6) g/dL Lipase 36 (13-60) U/L Urine Color Yellow (Yellow) Urine Appearance Cloudy (CLEAR) Urine pH 7 (5-7) Ur Specific Gravit y 1.010 (1.005-1.030) Urine Protein Neg (Negative) Urine Glucose (UA) Norm (Normal) Urine Ketones Negative (Negative) Urine Blood 2+ H (Negative) Urine Nitrate Positive H (Negative) Urine Bilirubin Neg (Negative) Urine Urobilinogen Norm (Negative) mg/dL Ur Leukocyte Radha ase 2+ H (Negative) Urine RBC 0-4 H (0-2) /hpf Urine WBC 25-40 H (0-5) /hpf Ur Squamous Epith Cells Rare (0-5) /hpf Ur Transition Epit h Cell Rare /hpf Amorphous Sediment Not Reportable Urine Bacteria 3+ H (NONE) /hpf Discharge Plan Discharge Patient Disposition: Home Clinical Impression: Cystitis Condition: Stable Prescriptions: New Cipro 500 mg tablet 500 mg PO BID Qty: 14 RF: 0 Pyridium 200 mg tablet 200 mg PO Q8H Qty: 6 RF: 0 No Action prazosin 1 mg Capsule 1 mg PO BEDTIME RF: 0 hydroxyzine HCl 50 mg Tablet 50 mg PO TID PRN (Reason: Anxiety) RF: 0 amlodipine 5 mg Tablet 5 mg PO BEDTIME RF: 0 meloxicam 7.5 mg Tablet 7.5 mg PO DAILY RF: 0 candesartan 16 mg Tablet 16 mg PO BID RF: 0 hydrochlorothiazide 25 mg Tablet 25 mg PO DAILY RF: 0 hydroxychloroquine 200 mg Tablet 200 mg PO BID RF: 0 albuterol sulfate 90 mcg/actuation Hfa Aerosol Inhaler 2 puff INHALATION 6XD PRN (Reason: Shortness Of Breath) RF: 0 naproxen 500 mg Tablet 500 mg PO BID RF: 0 Aimovig Autoinjector 140 mg/mL Auto-Injector 140 mg SUBCUT Q30D RF: 0 Zoloft 100 mg Tablet 100 mg PO DAILY RF: 0 chlorthalidone 50 mg Tablet 50 mg PO DAILY RF: 0 pantoprazole 40 mg Tablet,Delayed Release (Dr/Ec) 40 mg PO DAILY RF: 0 Benadryl 25 mg Capsule 25 mg PO BEDTIME PRN (Reason: Insomnia) RF: 0 Depakote ER 500 mg Tablet Extended Release 24 Hr 1,500 mg PO BEDTIME RF: 0 trazodone 300 mg Tablet 300 mg PO BEDTIME RF: 0 aspirin 81 mg Tablet,Chewable 81 mg PO DAILY RF: 0 gabapentin 100 mg Capsule 100 mg PO TID RF: 0 Abilify 10 mg Tablet 10 mg PO DAILY RF: 0 amlodipine 10 mg tablet 10 mg PO DAILY Qty: 14 RF: 0 Tessalon Perles 100 mg capsule 100 mg PO TID PRN (Reason: cough) Qty: 10 RF: 0 Discharge Orders: Discharge ED (Routine); Ordered 03/03/21 Ordered By: Juan Sutton Referrals: Ruba Cabrera, [Primary Care Provider] - Discharge Diet: Usual diet Discharge Activity: Resume usual activity Patient Instructions: Opioid Safety Stand Alone Forms: Work/School Release Coding 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
[2021-03-03] MEDS: iohexol 300 mg/mL 100 mL Btl IV (14:00)
== END 2021-03-03 15:10 | disposition home or self-care (01) ==
PROVIDERS: Emergency Provider Family Medicine; PCP Internal Medicine
DX: N30.90 Cystitis, unspecified without hematuria (principal); Z79.82 Long term (current) use of aspirin
CPT/HCPCS: 36415; 71045; 74177; 80053; 81001; 83690; 85025; 87040; 87077; 87086; 87186; 96365; 96375; 99284; J0696; J2270; J2405; J7030; Q9967

== ENCOUNTER 2021-03-27 14:35 | Emergency (ER) | payer MEDICAID, SELFPAY ==
[2021-03-27 14:51] VITALS: BP 160/88; PULSE 79; RESP 16; TEMP 36.8; O2SAT 97; BMI 41.1
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
[2021-03-27 16:27] VITALS: BP 174/90; PULSE 78; RESP 18; O2SAT 98
--- NOTE | 2021-03-27 16:27 | PC.NURSE ---
XR performed at bedside
[2021-03-27] MEDS: ketorolac 60 mg/2 mL INJ 30 MG IVP (16:41)
[2021-03-27] MEDS: ondansetron 2 mg/ML SDV 2 mL 4 MG IVP (16:41)
[2021-03-27] MEDS: diphenhydrAMINE 50 mg/mL SDV 1mL 25 MG IVP (16:41)
[2021-03-27] MEDS: dexamethasone 10 mg/mL INJ 8 MG IVP (16:41)
[2021-03-27] MEDS: sodium chloride 0.9% 1,000 ML 999 ML IV (16:42)
[2021-03-27 17:30] VITALS: BP 165/96; PULSE 62; RESP 16; O2SAT 94
[2021-03-27 18:00] VITALS: BP 176/116; PULSE 69; RESP 16; O2SAT 96
== END 2021-03-27 18:02 | disposition home or self-care (01) ==
PROVIDERS: Emergency Provider Nurse Practitioner Family; PCP Family Medicine
DX: G43.011 Migraine without aura, intractable, with status migrainosus (principal); G89.29 Other chronic pain; M79.672 Pain in left foot; Z79.82 Long term (current) use of aspirin
CPT/HCPCS: 73630; 96361; 96374; 96375; 99284; J1100; J1200; J1885; J2405; J7030

== ENCOUNTER 2021-04-14 10:49 | Emergency (ER) | payer MEDICAID, SELFPAY ==
[2021-04-14 11:13] VITALS: BP 145/85; PULSE 78; RESP 22; TEMP 36.5; O2SAT 98; BMI 40.5
--- NOTE | 2021-04-14 11:36 | XRR_ITS ---
PROCEDURE INFORMATION: Exam: XR Chest Exam date and time: 04/14/2021 11:36 AM Age: 50 years old Clinical indication: Pain; Chest pressure; Additional info: Cp TECHNIQUE: Imaging protocol: XR of the chest. Views: 1 view. COMPARISON: CR (CHEST, ) 03/03/2021 1:23 PM FINDINGS: Lungs: Unremarkable. No consolidation. Pleural spaces: Unremarkable. No pleural effusion. No pneumothorax. Heart/Mediastinum: Unremarkable. No cardiomegaly. Bones/joints: Unremarkable. XR/XR chest 1V portable [id number] IMPRESSION: No acute findings.
--- NOTE | 2021-04-14 11:37 | CTR_ITS ---
PROCEDURE INFORMATION: Exam: CT Head Without Contrast Exam date and time: 04/14/2021 11:37 AM Age: 50 years old Clinical indication: Altered mental status/memory loss; Confusion or disorientation; Additional info: Stroke symptoms TECHNIQUE: Imaging protocol: Computed tomography of the head without contrast. Radiation optimization: All CT scans at this facility use at least one of these dose optimization techniques: automated exposure control; mA and/or kV adjustment per patient size (includes targeted exams where dose is matched to clinical indication); or iterative reconstruction. COMPARISON: No relevant prior studies available. RADIATION DOSE METRICS: Total DLP (mGy-cm): 934.19 FINDINGS: Brain: Normal. No hemorrhage. Unremarkable white matter. No mass effect. Cerebral ventricles: No ventriculomegaly. Paranasal sinuses: Visualized sinuses are unremarkable. No fluid levels. Mastoid air cells: Visualized mastoid air cells are well aerated. Bones/joints: Unremarkable. No acute fracture. Soft tissues: Unremarkable. CT/CT head wo con* [id number] IMPRESSION: No acute intracranial abnormality. Radiation Dose CTDIVOL = (mGy): DLP = 934.19 (mGy-cm)
[2021-04-14 12:10] VITALS: BP 136/83; PULSE 75; RESP 25; O2SAT 99
--- NOTE | 2021-04-14 12:54 | W.ED.CHESTPA ---
HPI - Chest Pain General: Chief Complaint: Chest Pain Stated Complaint: cp Time Seen by Provider: 04/14/21 11:27 Source: patient Mode of arrival: ambulatory Limitations: no limitations History of Present Illness: HPI narrative: Patient is a 50-year-old female with no prior cardiac or neurologic history and presents to the emergency department with complaints of right-sided numbness. She noticed right-sided numbness and weakness of 3 days duration, she has no difficulty with gait, she has a headache and some dizziness. Today she developed chest pain about 2 hours ago retrosternal and nonradiating. She also has epigastric abdominal pain. Because of all these she comes to the emergency department to be evaluated. MD complaint: chest pain Onset (ago): hour(s) (2) Timing of current episode: constant Prior episodes: No Onset: during rest Pain location: substernal Severity: moderate Quality: sharp Relieving factors: nothing Exacerbating factors: nothing Associated symptoms: Reports abdominal pain and nausea; Deny diaphoresis, dyspnea, fever(s), leg edema, palpitations, sense of impending doom, syncope or vomiting Treatment prior to arrival: none Review of Systems General: Reports: 10 or more systems reviewed and unremarkable except in HPI and below Const: Denies: fever(s) or diaphoresis Card: Denies: palpitations or syncope Resp: Denies: dyspnea GI: Reports: abdominal pain and nausea; Denies: vomiting Physical Exam Const: COMMON NORMALS: no acute distress, average body habitus, patient oriented x3, no limitations, healthy appearing, alert and well nourished HENMT: COMMON NORMALS: normocephalic, atraumatic and moist oral mucous membranes HEAD & SCALP: normocephalic and atraumatic Neck/C-Spine: COMMON NORMALS: no meningeal signs and no JVD Resp: COMMON NORMALS: normal respiratory effort, No retractions, No use of accessory muscles, clear to auscultation bilaterally and percussion normal AUSCULTATION: clear to auscultation bilaterally PERCUSSION: percussion normal Cardio: COMMON NORMALS: no JVD, regular rate, regular rhythm, S1 normal heart sound present, S2 normal heart sound present, No gallops present (Cardio), No clicks present (Cardio), No murmurs present (Cardio), No rub (Cardio) and Peripheral pulses 2+ throughout RATE: regular rate RHYTHM: regular rhythm HEART SOUNDS: S1 normal heart sound present and S2 normal heart sound present PERIPHERAL PULSES: Peripheral pulses 2+ throughout GI: COMMON NORMALS: Normal to inspection, nondistended, normoactive bowel sounds present, Soft to palpation, No hepatosplenomegaly present, no masses and no bruits PALPATION: Yes Soft to palpation, Yes Tenderness to palpation present (GI) (epigastric) and Yes No hepatosplenomegaly present Extremity: COMMON NORMALS: normal to inspection, full ROM, capillary refill normal, no calf tenderness and no pedal edema Neuro: COMMON NORMALS: patient oriented x3 SENSORIUM/ORIENTATION: Yes alert MENINGEAL SIGNS: Yes no meningeal signs Course Reevaluation(s): Reevaluation #1: Discussed her lab and imaging findings with her. Negative for acute findings. Heart score is 2, meaning she has a 1.7% risk of major adverse cardiac event within the next 6 weeks. She will therefore be discharged home with no new orders. Time: 13:50 Vital Signs: Vital signs: Vital Signs Temperature 97.7 F 04/14/21 11:13 Pulse Rate 75 04/14/21 12:10 Respiratory Rate 25 H 04/14/21 12:10 Blood Pressure 136/83 04/14/21 12:10 Pulse Oximetry 99 04/14/21 12:10 MDM - Chest Pain MDM Narrative: Medical decision making narrative: 50-year-old female patient who presents to the emergency department chest pain on right-sided numbness. Right-sided numbness has been ongoing for 3 days the chest pain was earlier today. Evaluation in the ED is negative including a negative head CT and troponin. She is discharged home with no new orders. Medical Records: Attestation: I reviewed the patient's medical records. Lab Data: Attestation: I reviewed the patient's lab results. Labs: Lab Results 04/14/21 04/14/21 04/14/21 Range/Units 12:25 12:25 12:45 WBC 5.0 (4.0-10.0) 10^3/ uL RBC 4.44 (4.1-5.3) 10^6/u L Hgb 12.8 (11.5-15.3) g/dL Hct 40.7 (37.0-47.0) % MCV 91.7 (81-99) fL MCH 28.8 (28.0-34.0) pg MCHC 31.4 (30.0-36.0) g/dL RDW 13.9 (12.1-15.1) % Plt Count 283 (130-400) 10^3/c mm MPV 10.5 H (7.4-10.4) fL Neut % (Auto) 57.9 % Lymph % (Auto) 27.8 % [place] % (Auto) 11.5 % Eos % (Auto) 1.6 % Baso % (Auto) 1.0 % Neut # (Auto) 2.88 (1.8-7.7) 10^3/u L Lymph # (Auto) 1.4 (0.8-4.8) 10^3/u L [place] # (Auto) 0.6 (0.2-0.9) 10^3/u L Eos # (Auto) 0.1 (0.0-0.8) 10^3/u L Baso # (Auto) 0.1 (0.0-0.1) 10^3/u L Nucleated RBC % (a uto) 0 % Nucleated RBCs # 0.0 /100WBC Sodium (136-145) mmol/L Potassium (3.5-5.1) mmol/L Chloride (98-107) mmol/L Carbon Dioxide (22-29) mmol/L Anion Gap (5-19) BUN (6-20) mg/dL Creatinine (0.5-0.9) mg/dL GFR Calculation (90-130) mL/min Glucose (65-115) mg/dL Calculated Osmolal ity (285-295) mOsm/k g Calcium (8.5-10.5) mg/dL Total Bilirubin (0.15-1.2) mg/dL AST (0-32) U/L ALT (0-33) U/L Alkaline Phosphata se (35-105) IU/L Troponin T Baselin e (0-10) ng/L Total Protein (6.6-8.7) g/dL Albumin (3.5-5.2) g/dL Globulin (1.3-4.6) g/dL Lipase (13-60) U/L HCG, Qual Negative (Negative) Urine Color Yellow (Yellow) Urine Appearance Clear (CLEAR) Urine pH 7 (5-7) Ur Specific Gravit y 1.015 (1.005-1.030) Urine Protein Neg (Negative) Urine Glucose (UA) Norm (Normal) Urine Ketones Negative (Negative) Urine Blood 2+ H (Negative) Urine Nitrate Negative (Negative) Urine Bilirubin Neg (Negative) Urine Urobilinogen 1 H (Negative) mg/dL Ur Leukocyte Radha ase Negative (Negative) Urine RBC Rare (0-2) /hpf Urine WBC None (0-5) /hpf Ur Squamous Epith Cells None (0-5) /hpf Amorphous Sediment Not Reportable Urine Bacteria 1+ H (NONE) /hpf 04/14/21 04/14/21 Range/Units 12:45 12:45 WBC (4.0-10.0) 10^3/ uL RBC (4.1-5.3) 10^6/u L Hgb (11.5-15.3) g/dL Hct (37.0-47.0) % MCV (81-99) fL MCH (28.0-34.0) pg MCHC (30.0-36.0) g/dL RDW (12.1-15.1) % Plt Count (130-400) 10^3/c mm MPV (7.4-10.4) fL Neut % (Auto) % Lymph % (Auto) % [place] % (Auto) % Eos % (Auto) % Baso % (Auto) % Neut # (Auto) (1.8-7.7) 10^3/u L Lymph # (Auto) (0.8-4.8) 10^3/u L [place] # (Auto) (0.2-0.9) 10^3/u L Eos # (Auto) (0.0-0.8) 10^3/u L Baso # (Auto) (0.0-0.1) 10^3/u L Nucleated RBC % (a uto) % Nucleated RBCs # /100WBC Sodium 137 (136-145) mmol/L Potassium 4.3 (3.5-5.1) mmol/L Chloride 101 (98-107) mmol/L Carbon Dioxide 26 (22-29) mmol/L Anion Gap 14.3 (5-19) BUN 9 (6-20) mg/dL Creatinine 0.7 (0.5-0.9) mg/dL GFR Calculation 88.9 L (90-130) mL/min Glucose 87 (65-115) mg/dL Calculated Osmolal ity 282 L (285-295) mOsm/k g Calcium 8.7 (8.5-10.5) mg/dL Total Bilirubin 1.1 (0.15-1.2) mg/dL AST 13 (0-32) U/L ALT 13 (0-33) U/L Alkaline Phosphata se 113 H (35-105) IU/L Troponin T Baselin e 6 (0-10) ng/L Total Protein 7.1 (6.6-8.7) g/dL Albumin 4.2 (3.5-5.2) g/dL Globulin 2.9 (1.3-4.6) g/dL Lipase 40 (13-60) U/L HCG, Qual (Negative) Urine Color (Yellow) Urine Appearance (CLEAR) Urine pH (5-7) Ur Specific Gravit y (1.005-1.030) Urine Protein (Negative) Urine Glucose (UA) (Normal) Urine Ketones (Negative) Urine Blood (Negative) Urine Nitrate (Negative) Urine Bilirubin (Negative) Urine Urobilinogen (Negative) mg/dL Ur Leukocyte Radha ase (Negative) Urine RBC (0-2) /hpf Urine WBC (0-5) /hpf Ur Squamous Epith Cells (0-5) /hpf Amorphous Sediment Urine Bacteria (NONE) /hpf Imaging Data^: CT Head: Attestation: I personally reviewed and interpreted this imaging study as follows: Radiologist's impression: [address] [id number] Scan ReportSigned Patient: Brisa Pryor #: [id number]: 1970Acct#:[id number]/Sex: 50 / FADM Date: 04/14/21Loc: ERRoom/Bed:Attending Dr: Ordering Provider/Ordering MD: Braydon Mcad[place] [facility] [place] of Service: 04/14/21 Procedure(s): CT head wo con* [id number] Accession Number(s): [id number] Report Number: [id number] PROCEDURE INFORMATION: Exam: CT Head Without Contrast Exam date and time: 04/14/2021 11:37 AM Age: 50 years old Clinical indication: Altered mental status/memory loss; Confusion or disorientation; Additional info: Stroke symptoms TECHNIQUE: Imaging protocol: Computed tomography of the head without contrast. Radiation optimization: All CT scans at this facility use at least one of these dose optimization techniques: automated exposure control; mA and/or kV adjustment per patient size (includes targeted exams where dose is matched to clinical indication); or iterative reconstruction. COMPARISON: No relevant prior studies available. RADIATION DOSE METRICS: Total DLP (mGy-cm): 934.19 FINDINGS: Brain: Normal. No hemorrhage. Unremarkable white matter. No mass effect. Cerebral ventricles: No ventriculomegaly. Paranasal sinuses: Visualized sinuses are unremarkable. No fluid levels. Mastoid air cells: Visualized mastoid air cells are well aerated. Bones/joints: Unremarkable. No acute fracture. Soft tissues: Unremarkable. CT/CT head wo con* [id number] IMPRESSION: No acute intracranial abnormality. Radiation Dose CTDIVOL = (mGy): DLP = 934.19 (mGy-cm) Dictated By:Nahum Alegreigned By:Deny Alegre Date/Time:04/14/21 1319DD/ 1318 CXR: Attestation: I personally reviewed and interpreted this imaging study as follows: Radiologist's impression: [address] [id number] ReportSigned Patient: Brisa Pryor #: [id number]: 1970Acct#:[id number]/Sex: 50 / FADM Date: 04/14/21Loc: ERRoom/Bed:Attending Dr: Ordering Provider/Ordering MD: Braydon Mcad[place] [facility] of Service: 04/14/21 Procedure(s): XR chest 1V portable [id number] Accession Number(s): [id number] Report Number: [id number] PROCEDURE INFORMATION: Exam: XR Chest Exam date and time: 04/14/2021 11:36 AM Age: 50 years old Clinical indication: Pain; Chest pressure; Additional info: Cp TECHNIQUE: Imaging protocol: XR of the chest. Views: 1 view. COMPARISON: CR (CHEST, ) 03/03/2021 1:23 PM FINDINGS: Lungs: Unremarkable. No consolidation. Pleural spaces: Unremarkable. No pleural effusion. No pneumothorax. Heart/Mediastinum: Unremarkable. No cardiomegaly. Bones/joints: Unremarkable. XR/XR chest 1V portable [id number] IMPRESSION: No acute findings. Dictated By:Nahum Alegreigned By:Deny Alegre Date/Time:04/14/21 1320DD/ 1318 EKG Data^: EKG 1: Attestation: I personally reviewed and interpreted this EKG as follows: EKG interpretation date: 04/14/21 EKG interpretation time: 11:19 Prior EKG tracings: not available for review Interpretation: Sinus rhythm. Heart rate 83 bpm. Normal axis. No ST changes. EKG 2: Attestation: I personally reviewed and interpreted this EKG as follows: EKG interpretation date: 04/14/21 EKG interpretation time: 13:09 Prior EKG tracings: available for review Interpretation: Sinus rhythm. Heart rate 60 bpm. Normal axis. No ST changes. Discharge Plan Discharge Patient Disposition: Home Clinical Impression: Non-cardiac chest pain Condition: Stable Prescriptions: Continued prazosin 1 mg Capsule 1 mg PO BEDTIME@2200 RF: 0 hydroxyzine HCl 50 mg Tablet 50 mg PO TID PRN (Reason: Anxiety) RF: 0 amlodipine 5 mg Tablet 5 mg PO BEDTIME@2200 RF: 0 meloxicam 7.5 mg Tablet 7.5 mg PO DAILY RF: 0 candesartan 16 mg Tablet 16 mg PO BID RF: 0 hydrochlorothiazide 25 mg Tablet 25 mg PO DAILY@0800 RF: 0 hydroxychloroquine 200 mg Tablet 200 mg PO BID@0800,2200 RF: 0 albuterol sulfate 90 mcg/actuation Hfa Aerosol Inhaler 2 puff INHALATION 6XD PRN (Reason: Shortness Of Breath) RF: 0 naproxen 500 mg Tablet 500 mg PO BID@0800,2000 RF: 0 Aimovig Autoinjector 140 mg/mL Auto-Injector 140 mg SUBCUT Q30D RF: 0 sertraline [Zoloft] 100 mg Tablet 100 mg PO DAILY RF: 0 chlorthalidone 50 mg Tablet 50 mg PO DAILY@0800 RF: 0 pantoprazole 40 mg Tablet,Delayed Release (Dr/Ec) 40 mg PO DAILY@0800 RF: 0 diphenhydramine HCl [Benadryl] 25 mg Capsule 25 mg PO BEDTIME@2200 PRN (Reason: Insomnia) RF: 0 divalproex [Depakote ER] 500 mg Tablet Extended Release 24 Hr 1,500 mg PO BEDTIME@2200 RF: 0 trazodone 300 mg Tablet 300 mg PO BEDTIME@2200 RF: 0 aspirin 81 mg Tablet,Chewable 81 mg PO DAILY RF: 0 gabapentin 100 mg Capsule 100 mg PO TID RF: 0 aripiprazole [Abilify] 10 mg Tablet 10 mg PO DAILY@0800 RF: 0 Tylenol 325 mg Tablet 325 mg PO QID PRN (Reason: Pain) RF: 0 ipratropium-albuterol 0.5 mg-3 mg(2.5 mg base)/3 mL solution for nebulization 3 ml INHALATION DAILY@0800 RF: 0 Miralax 17 gram/dose powder 17 g PO DAILY PRN (Reason: Constipation) RF: 0 losartan 100 mg tablet 100 mg PO DAILY@0800 RF: 0 Symbicort 160-4.5 mcg/actuation Hfa Aerosol Inhaler 2 puff INHALATION Q12H RF: 0 Breo Ellipta 200-25 mcg/dose blister with device 1 inh INHALATION DAILY@0800 RF: 0 Trulance 3 mg tablet 3 mg PO DAILY RF: 0 phenazopyridine [Pyridium] 200 mg tablet 200 mg PO Q8H Qty: 6 RF: 0 Discharge Orders: Discharge ED (Routine); Ordered 04/14/21 Ordered By: Braydon Mcadams Referrals: Alpesh Garcia MD [Primary Care Provider] - 1-3 days Discharge Diet: Usual diet Discharge Activity: Increase activity as tolerated Patient Instructions: Noncardiac Chest Pain (ED) Activity Restrictions/Additional Instructions: Return for any new or worsening symptoms. Follow-up with your primary care provider within 3 days. Continue home medications. 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
[2021-04-14 13:13] LABS: HCG Qualitative Urine. Negative (Negative)
[2021-04-14] MEDS: lidocaine 2% viscous 15 ML, aluminum-mag hydrox-simethicon 30 ML, sucralfate oral liq 1 GM PO (13:15)
[2021-04-14 13:19] LABS: Basophils # 0.1 10^3/uL (0.0-0.1); Eosinophils # 0.1 10^3/uL (0.0-0.8); Eosinophils % 1.6 %; Hematocrit 40.7 % (37.0-47.0); Hemoglobin 12.8 g/dL (11.5-15.3); Lymphocytes # 1.4 10^3/uL (0.8-4.8); Lymphocytes % 27.8 %; Mean Corpuscular HGB Conc 31.4 g/dL (30.0-36.0); Mean Corpuscular Hemoglobin 28.8 pg (28.0-34.0); Mean Corpuscular Volume 91.7 fL (81-99); Mean Platelet Volume 10.5 fL (7.4-10.4); Monocytes # 0.6 10^3/uL (0.2-0.9); Monocytes % 11.5 %; Neutrophils # 2.88 10^3/uL (1.8-7.7); Neutrophils % 57.9 %; Nucleated Red Blood Cells % 0 %; Platelet Count 283 10^3/cmm (130-400); Red Blood Count 4.44 10^6/uL (4.1-5.3); Red Cell Distribution Width 13.9 % (12.1-15.1)
[2021-04-14 13:25] LABS: Alanine Aminotransferase 13 U/L (0-33); Albumin Level 4.2 g/dL (3.5-5.2); Alkaline Phosphatase 113 IU/L (35-105); Anion Gap 14.3 (5-19); Aspartate Amino Transferase 13 U/L (0-32); Blood Urea Nitrogen 9 mg/dL (6-20); Calcium 8.7 mg/dL (8.5-10.5); Carbon Dioxide 26 mmol/L (22-29); Chloride 101 mmol/L (98-107); Globulin 2.9 g/dL (1.3-4.6); Glomerular Filtration Rate 88.9 mL/min (90-130); Glucose 87 mg/dL (65-115); Lipase 40 U/L (13-60); Osmolality Calculated 282 mOsm/kg (285-295); Potassium 4.3 mmol/L (3.5-5.1); Sodium 137 mmol/L (136-145); Total Bilirubin 1.1 mg/dL (0.15-1.2); Total Protein 7.1 g/dL (6.6-8.7)
[2021-04-14 13:29] LABS: Troponin(5th) Baseline 6 ng/L (0-10)
[2021-04-14 13:36] LABS: Add Urine Culture? No; Add Urine Microscopic? YES; Bacteria Urine 1+ /hpf; Bilirubin Urine Neg (Negative); Blood Urine 2+ (Negative); Glucose Urine UA Norm (Normal); Ketones Urine Negative (Negative); Leukocyte Esterase Urine Negative (Negative); Nitrate Urine Negative (Negative); Protein Urine Neg (Negative); RBC Urine RARE /hpf (0-2); Specific Gravity, Urine 1.015 (1.005-1.030); Urine Appearance Clear (CLEAR); Urine Color Yellow (Yellow); Urobilinogen Urine 1 mg/dL (Negative); pH Urine 7 (5-7)
--- NOTE | 2021-04-14 13:36 | ECG_ITS ---
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 Measurements Intervals [place] Rate: 60 P: 0 TN: 174 QRS: 24 QRSD: 87 T: 13 QT: 430 QTc: 430 Interpretive Statements SINUS RHYTHM No previous ECG available for comparison Electronically Signed On 04-15-2021 9:47:36 CDT by Tracy Bo M.D. [id number]
--- NOTE | 2021-04-15 01:13 | W.ED.CHESTPA ---
HPI - Chest Pain General: Chief Complaint: Chest Pain Stated Complaint: cp Time Seen by Provider: 04/14/21 11:27 Source: patient Mode of arrival: ambulatory Limitations: no limitations History of Present Illness: Pain location: substernal Quality: sharp Relieving factors: nothing Exacerbating factors: nothing Course Vital Signs: Vital signs: Vital Signs Temperature 97.7 F 04/14/21 11:13 Pulse Rate 75 04/14/21 12:10 Respiratory Rate 25 H 04/14/21 12:10 Blood Pressure 136/83 04/14/21 12:10 Pulse Oximetry 99 04/14/21 12:10 MDM - Chest Pain Lab Data: Labs: Lab Results 04/14/21 04/14/21 04/14/21 Range/Units 12:25 12:25 12:45 WBC 5.0 (4.0-10.0) 10^3/ uL RBC 4.44 (4.1-5.3) 10^6/u L Hgb 12.8 (11.5-15.3) g/dL Hct 40.7 (37.0-47.0) % MCV 91.7 (81-99) fL MCH 28.8 (28.0-34.0) pg MCHC 31.4 (30.0-36.0) g/dL RDW 13.9 (12.1-15.1) % Plt Count 283 (130-400) 10^3/c mm MPV 10.5 H (7.4-10.4) fL Neut % (Auto) 57.9 % Lymph % (Auto) 27.8 % [facility] % (Auto) 11.5 % Eos % (Auto) 1.6 % Baso % (Auto) 1.0 % Neut # (Auto) 2.88 (1.8-7.7) 10^3/u L Lymph # (Auto) 1.4 (0.8-4.8) 10^3/u L [facility] # (Auto) 0.6 (0.2-0.9) 10^3/u L Eos # (Auto) 0.1 (0.0-0.8) 10^3/u L Baso # (Auto) 0.1 (0.0-0.1) 10^3/u L Nucleated RBC % (a uto) 0 % Nucleated RBCs # 0.0 /100WBC Sodium (136-145) mmol/L Potassium (3.5-5.1) mmol/L Chloride (98-107) mmol/L Carbon Dioxide (22-29) mmol/L Anion Gap (5-19) BUN (6-20) mg/dL Creatinine (0.5-0.9) mg/dL GFR Calculation (90-130) mL/min Glucose (65-115) mg/dL Calculated Osmolal ity (285-295) mOsm/k g Calcium (8.5-10.5) mg/dL Total Bilirubin (0.15-1.2) mg/dL AST (0-32) U/L ALT (0-33) U/L Alkaline Phosphata se (35-105) IU/L Troponin T Baselin e (0-10) ng/L Total Protein (6.6-8.7) g/dL Albumin (3.5-5.2) g/dL Globulin (1.3-4.6) g/dL Lipase (13-60) U/L HCG, Qual Negative (Negative) Urine Color Yellow (Yellow) Urine Appearance Clear (CLEAR) Urine pH 7 (5-7) Ur Specific Gravit y 1.015 (1.005-1.030) Urine Protein Neg (Negative) Urine Glucose (UA) Norm (Normal) Urine Ketones Negative (Negative) Urine Blood 2+ H (Negative) Urine Nitrate Negative (Negative) Urine Bilirubin Neg (Negative) Urine Urobilinogen 1 H (Negative) mg/dL Ur Leukocyte Radha ase Negative (Negative) Urine RBC Rare (0-2) /hpf Urine WBC None (0-5) /hpf Ur Squamous Epith Cells None (0-5) /hpf Amorphous Sediment Not Reportable Urine Bacteria 1+ H (NONE) /hpf 04/14/21 04/14/21 Range/Units 12:45 12:45 WBC (4.0-10.0) 10^3/ uL RBC (4.1-5.3) 10^6/u L Hgb (11.5-15.3) g/dL Hct (37.0-47.0) % MCV (81-99) fL MCH (28.0-34.0) pg MCHC (30.0-36.0) g/dL RDW (12.1-15.1) % Plt Count (130-400) 10^3/c mm MPV (7.4-10.4) fL Neut % (Auto) % Lymph % (Auto) % [facility] % (Auto) % Eos % (Auto) % Baso % (Auto) % Neut # (Auto) (1.8-7.7) 10^3/u L Lymph # (Auto) (0.8-4.8) 10^3/u L [facility] # (Auto) (0.2-0.9) 10^3/u L Eos # (Auto) (0.0-0.8) 10^3/u L Baso # (Auto) (0.0-0.1) 10^3/u L Nucleated RBC % (a uto) % Nucleated RBCs # /100WBC Sodium 137 (136-145) mmol/L Potassium 4.3 (3.5-5.1) mmol/L Chloride 101 (98-107) mmol/L Carbon Dioxide 26 (22-29) mmol/L Anion Gap 14.3 (5-19) BUN 9 (6-20) mg/dL Creatinine 0.7 (0.5-0.9) mg/dL GFR Calculation 88.9 L (90-130) mL/min Glucose 87 (65-115) mg/dL Calculated Osmolal ity 282 L (285-295) mOsm/k g Calcium 8.7 (8.5-10.5) mg/dL Total Bilirubin 1.1 (0.15-1.2) mg/dL AST 13 (0-32) U/L ALT 13 (0-33) U/L Alkaline Phosphata se 113 H (35-105) IU/L Troponin T Baselin e 6 (0-10) ng/L Total Protein 7.1 (6.6-8.7) g/dL Albumin 4.2 (3.5-5.2) g/dL Globulin 2.9 (1.3-4.6) g/dL Lipase 40 (13-60) U/L HCG, Qual (Negative) Urine Color (Yellow) Urine Appearance (CLEAR) Urine pH (5-7) Ur Specific Gravit y (1.005-1.030) Urine Protein (Negative) Urine Glucose (UA) (Normal) Urine Ketones (Negative) Urine Blood (Negative) Urine Nitrate (Negative) Urine Bilirubin (Negative) Urine Urobilinogen (Negative) mg/dL Ur Leukocyte Radha ase (Negative) Urine RBC (0-2) /hpf Urine WBC (0-5) /hpf Ur Squamous Epith Cells (0-5) /hpf Amorphous Sediment Urine Bacteria (NONE) /hpf Discharge Plan Discharge Patient Disposition: Home Clinical Impression: Non-cardiac chest pain Condition: Stable Prescriptions: Continued prazosin 1 mg Capsule 1 mg PO BEDTIME@2199 RF: 0 hydroxyzine HCl 50 mg Tablet 50 mg PO TID PRN (Reason: Anxiety) RF: 0 amlodipine 5 mg Tablet 5 mg PO BEDTIME@2199 RF: 0 meloxicam 7.5 mg Tablet 7.5 mg PO DAILY RF: 0 candesartan 16 mg Tablet 16 mg PO BID RF: 0 hydrochlorothiazide 25 mg Tablet 25 mg PO DAILY@0800 RF: 0 hydroxychloroquine 200 mg Tablet 200 mg PO BID@0800,2199 RF: 0 albuterol sulfate 90 mcg/actuation Hfa Aerosol Inhaler 2 puff INHALATION 6XD PRN (Reason: Shortness Of Breath) RF: 0 naproxen 500 mg Tablet 500 mg PO BID@0800,1999 RF: 0 Aimovig Autoinjector 140 mg/mL Auto-Injector 140 mg SUBCUT Q30D RF: 0 sertraline [Zoloft] 100 mg Tablet 100 mg PO DAILY RF: 0 chlorthalidone 50 mg Tablet 50 mg PO DAILY@0800 RF: 0 pantoprazole 40 mg Tablet,Delayed Release (Dr/Ec) 40 mg PO DAILY@0800 RF: 0 diphenhydramine HCl [Benadryl] 25 mg Capsule 25 mg PO BEDTIME@2199 PRN (Reason: Insomnia) RF: 0 divalproex [Depakote ER] 500 mg Tablet Extended Release 24 Hr 1,500 mg PO BEDTIME@2199 RF: 0 trazodone 300 mg Tablet 300 mg PO BEDTIME@2199 RF: 0 aspirin 81 mg Tablet,Chewable 81 mg PO DAILY RF: 0 gabapentin 100 mg Capsule 100 mg PO TID RF: 0 aripiprazole [Abilify] 10 mg Tablet 10 mg PO DAILY@0800 RF: 0 Tylenol 325 mg Tablet 325 mg PO QID PRN (Reason: Pain) RF: 0 ipratropium-albuterol 0.5 mg-3 mg(2.5 mg base)/3 mL solution for nebulization 3 ml INHALATION DAILY@0800 RF: 0 Miralax 17 gram/dose powder 17 g PO DAILY PRN (Reason: Constipation) RF: 0 losartan 100 mg tablet 100 mg PO DAILY@0800 RF: 0 Symbicort 160-4.5 mcg/actuation Hfa Aerosol Inhaler 2 puff INHALATION Q12H RF: 0 Breo Ellipta 200-25 mcg/dose blister with device 1 inh INHALATION DAILY@0800 RF: 0 Trulance 3 mg tablet 3 mg PO DAILY RF: 0 phenazopyridine [Pyridium] 200 mg tablet 200 mg PO Q8H Qty: 6 RF: 0 Discharge Orders: Discharge ED (Routine); Ordered 04/14/21 Ordered By: Braydon Mcadams Referrals: Alpesh Garcia MD [Primary Care Provider] - 1-3 days Discharge Diet: Usual diet Discharge Activity: Increase activity as tolerated Patient Instructions: Noncardiac Chest Pain (ED) Activity Restrictions/Additional Instructions: Return for any new or worsening symptoms. Follow-up with your primary care provider within 3 days. Continue home medications. 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
== END 2021-04-14 14:38 | disposition home or self-care (01) ==
PROVIDERS: Emergency Provider Family Medicine; PCP Family Medicine
DX: R07.89 Other chest pain (principal); Z79.82 Long term (current) use of aspirin
CPT/HCPCS: 70450; 71045; 80053; 81001; 81025; 83690; 84484; 85025; 93005; 99283

== ENCOUNTER → 2021-04-16 08:16 | Outpatient (BNVA) | payer MEDICAID, SELFPAY | PROVIDERS: PCP Family Medicine; Referring Provider Family Medicine; Visit Provider Nurse Practitioner | DX: G43.909 Migraine, unspecified, not intractable, without status migrainosus (principal); M54.2 Cervicalgia; R29.2 Abnormal reflex | CPT/HCPCS: 99204 ==

== ENCOUNTER 2021-04-17 15:49 | Emergency (ER) | payer MEDICAID, SELFPAY ==
[2021-04-17 16:07] VITALS: BP 118/82; PULSE 92; RESP 16; TEMP 36.4; O2SAT 96; BMI 41.1
--- NOTE | 2021-04-17 16:34 | XRR_ITS ---
PROCEDURE INFORMATION: Exam: XR Cervical Spine Exam date and time: 04/17/2021 4:34 PM Age: 50 years old Clinical indication: Radicular pain (radiculopathy); Cervical region; Additional info: Radicular neck pain TECHNIQUE: Imaging protocol: XR of the cervical spine. Views: 2 or 3 views. COMPARISON: CT head wo con* [id number] 04/14/2021 12:51 PM FINDINGS: The atlantoaxial interval and craniocervical junction are unremarkable. No prevertebral soft tissue swelling is seen. There is straightening of the normal cervical lordosis which may relate to patient positioning or muscle spasm. Mild to moderate degenerative disc disease is noted in the cervical spine. No acute fracture is identified. The visualized lung apices are grossly clear. XR/XR cervical spine 3V* [id number] IMPRESSION: Mild to moderate degenerative disc disease is noted in the cervical spine. Consider MR to further assess if clinically warranted.
--- NOTE | 2021-04-17 16:34 | XRR_ITS ---
PROCEDURE INFORMATION: Exam: XR Chest Exam date and time: 04/17/2021 4:34 PM Age: 50 years old Clinical indication: Sternal or substernal chest pain. TECHNIQUE: Imaging protocol: XR of the chest. Views: 1 view. COMPARISON: CR (CHEST, ) 04/14/2021 12:41 PM FINDINGS: Lungs: No pulmonary consolidation. Pleural spaces: No pleural effusion.; No pneumothorax. Heart/Mediastinum: The cardiac silhouette is unchanged. No gross evidence of pneumomediastinum. Bones/joints: No gross fracture. XR/XR chest 1V portable [id number] IMPRESSION: No acute cardiopulmonary abnormality identified.
--- NOTE | 2021-04-17 16:37 | ECG_ITS ---
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 Measurements Intervals [place] Rate: 90 P: 31 HI: 164 QRS: 20 QRSD: 93 T: 12 QT: 365 QTc: 448 Interpretive Statements SINUS RHYTHM POSSIBLE LEFT ATRIAL ENLARGEMENT [-0.1mV P WAVE IN V1/V2] Compared to ECG 04/14/2021 13:09:41 No significant changes Electronically Signed On 04-18-2021 0:27:00 CDT by Tracy Bo M.D. [email or web address] ([id number] [email or web address]
--- NOTE | 2021-04-17 16:38 | W.ED.GENADLT ---
HPI - General Adult General: Chief complaint: General Medical Stated complaint: R arm pain, chest pain Time Seen by Provider: 04/17/21 16:19 Source: patient Mode of arrival: ambulatory Limitations: no limitations History of Present Illness: HPI narrative: Patient is a 50-year-old female with a history of hypertension, depression presents to the emergency department with right-sided hemiparesis and severe pain in the right upper and lower extremities. She also developed chest pain this afternoon about 3 hours ago. She was seen in the emergency department 2 days ago for the same thing and was seen by the neurologist yesterday for migraines. She was started on new medications for migraines. She has had the headache on the right side, neck pain, right hemiparesis and right upper extremity and lower extremity pain for many years. She says it is worsening. She has not obtained an MRI of her spine for evaluation of her discs and spinal canal. Her primary care provider asked her to come to the emergency department to be evaluated. MD complaint: chest pain Onset (ago): hour(s) (2) Radiation: non-radiation Severity: moderate Quality: stabbing Pain Consistency: constant Relieving factors: none Exacerbating factors: none Associated symptoms: Reports chest pain; Deny confusion, cough, diaphoresis, decreased appetite, dyspnea, fevers/chills, headache(s), malaise, nausea, rash, palpitations, seizures, short of breath, syncope, vomiting or weakness Treatments prior to arrival: none Review of Systems General: Reports: 10 or more systems reviewed and unremarkable except in HPI and below Const: Denies: malaise or diaphoresis Card: Reports: chest pain; Denies: palpitations or syncope Resp: Denies: dyspnea GI: Denies: nausea or vomiting Skin/Breast: Denies: rash Neuro: Denies: headache(s) or confusion PFS ED PFSH: Medical History Abnormal reflex Neck pain Social History Smoking and tobacco status: never smoked Physical Exam Const: COMMON NORMALS: no acute distress, average body habitus, patient oriented x3, no limitations, healthy appearing, alert and well nourished HENMT: COMMON NORMALS: normocephalic, atraumatic and moist oral mucous membranes HEAD & SCALP: normocephalic and atraumatic Neck/C-Spine: COMMON NORMALS: full ROM, supple, no meningeal signs, no JVD and No carotid bruits CERVICAL SPINE: Yes Paracervical muscle tenderness and Yes Paracervical spasm OTHER: Spurling's test positive Resp: COMMON NORMALS: normal respiratory effort, No retractions, No use of accessory muscles, clear to auscultation bilaterally and percussion normal AUSCULTATION: clear to auscultation bilaterally PERCUSSION: percussion normal Cardio: COMMON NORMALS: no JVD, regular rate, regular rhythm, S1 normal heart sound present, S2 normal heart sound present, No gallops present (Cardio), No clicks present (Cardio), No murmurs present (Cardio), No rub (Cardio) and Peripheral pulses 2+ throughout RATE: regular rate RHYTHM: regular rhythm HEART SOUNDS: S1 normal heart sound present and S2 normal heart sound present PERIPHERAL PULSES: Peripheral pulses 2+ throughout GI: COMMON NORMALS: Normal to inspection, nondistended, normoactive bowel sounds present, Soft to palpation, non-tender, No hepatosplenomegaly present, no masses and no bruits PALPATION: Yes Soft to palpation and Yes No hepatosplenomegaly present Extremity: COMMON NORMALS: normal to inspection, full ROM, capillary refill normal, no calf tenderness and no pedal edema OTHER: tender in her right upper extremity globally Neuro: COMMON NORMALS: patient oriented x3 SENSORIUM/ORIENTATION: Yes alert MENINGEAL SIGNS: Yes no meningeal signs Skin: COMMON NORMALS: no rashes or lesions noted, no wounds, turgor normal, no jaundice, no petechiae and no mottling GENERAL SKIN EXAM: no rashes or lesions noted and turgor normal Procedures EJ/Peripheral Line Arm R: Time Out Performed: Yes Skin Cleansed in Sterile Fashion: Yes Size (gauge): 18 IV Secured and Dressing Applied: Yes Patient Tolerated Procedure: well Additional Comments: Patient has a difficult IV stick. What I want has had attempted to obtain IV access on this patient and they were unsuccessful. I was able to obtain an ultrasound-guided IV line in the right AC. Course Reevaluation(s): Reevaluation #1: Discussed her lab and imaging findings with her. Discussed negative cardiac enzymes. Explained that since her neck pain right upper extremity pain are chronic and been going on for years, and examination findings are suspicious for cervical radiculopathy, she will need an MRI of her neck to further assess for nerve impingement. She voiced understanding and is in agreement with the plan. Time: 21:20 Vital Signs: Vital signs: Vital Signs Temperature 97.5 F L 04/17/21 16:07 Pulse Rate 73 04/17/21 21:41 Respiratory Rate 18 04/17/21 21:41 Blood Pressure 144/65 04/17/21 21:41 Pulse Oximetry 98 04/17/21 21:41 MDM - General Adult MDM Narrative: Medical decision making narrative: 50-year-old female patient with chronic neck and right upper extremity pain who presents emergency department with episode of right upper extremity pain as well as chest pain. She had a negative cardiac work-up today as well as 2 days ago. She is advised to obtain an MRI of her cervical spine for further characterization of the anatomy of her disc spaces and her nerves. Medical Records: Attestation: I reviewed the patient's medical records. Lab Data: Attestation: I reviewed the patient's lab results. Labs: Lab Results 04/17/21 04/17/21 04/17/21 Range/Units 18:12 18:12 18:12 WBC 6.0 (4.0-10.0) 10^3/ uL RBC 4.77 (4.1-5.3) 10^6/u L Hgb 13.7 (11.5-15.3) g/dL Hct 44.0 (37.0-47.0) % MCV 92.2 (81-99) fL MCH 28.7 (28.0-34.0) pg MCHC 31.1 (30.0-36.0) g/dL RDW 13.8 (12.1-15.1) % Plt Count 331 (130-400) 10^3/c mm MPV 10.2 (7.4-10.4) fL Neut % (Auto) 59.0 % Lymph % (Auto) 27.2 % [place] % (Auto) 10.3 % Eos % (Auto) 2.8 % Baso % (Auto) 0.5 % Neut # (Auto) 3.56 (1.8-7.7) 10^3/u L Lymph # (Auto) 1.6 (0.8-4.8) 10^3/u L [place] # (Auto) 0.6 (0.2-0.9) 10^3/u L Eos # (Auto) 0.2 (0.0-0.8) 10^3/u L Baso # (Auto) 0.0 (0.0-0.1) 10^3/u L Nucleated RBC % (a uto) 0 % Nucleated RBCs # 0.0 /100WBC Sodium 138 (136-145) mmol/L Potassium 3.8 (3.5-5.1) mmol/L Chloride 97 L (98-107) mmol/L Carbon Dioxide 32 H (22-29) mmol/L Anion Gap 12.8 (5-19) BUN 12 (6-20) mg/dL Creatinine 0.8 (0.5-0.9) mg/dL GFR Calculation 76.2 L (90-130) mL/min Glucose 82 (65-115) mg/dL Calculated Osmolal ity 285 (285-295) mOsm/k g Calcium 9.4 (8.5-10.5) mg/dL Total Bilirubin 0.7 (0.15-1.2) mg/dL AST 11 (0-32) U/L ALT 12 (0-33) U/L Alkaline Phosphata se 113 H (35-105) IU/L Creatine Kinase 45 (26-192) U/L Troponin T Baselin e 6 (0-10) ng/L Troponin T 120 Min quileute (0-10) ng/L Delta Troponin T (0-10) ABS# Total Protein 7.0 (6.6-8.7) g/dL Albumin 4.3 (3.5-5.2) g/dL Globulin 2.7 (1.3-4.6) g/dL 04/17/ Range/Units 20:28 WBC (4.0-10.0) 10^3/ uL RBC (4.1-5.3) 10^6/u L Hgb (11.5-15.3) g/dL Hct (37.0-47.0) % MCV (81-99) fL MCH (28.0-34.0) pg MCHC (30.0-36.0) g/dL RDW (12.1-15.1) % Plt Count (130-400) 10^3/c mm MPV (7.4-10.4) fL Neut % (Auto) % Lymph % (Auto) % [place] % (Auto) % Eos % (Auto) % Baso % (Auto) % Neut # (Auto) (1.8-7.7) 10^3/u L Lymph # (Auto) (0.8-4.8) 10^3/u L [place] # (Auto) (0.2-0.9) 10^3/u L Eos # (Auto) (0.0-0.8) 10^3/u L Baso # (Auto) (0.0-0.1) 10^3/u L Nucleated RBC % (a uto) % Nucleated RBCs # /100WBC Sodium (136-145) mmol/L Potassium (3.5-5.1) mmol/L Chloride (98-107) mmol/L Carbon Dioxide (22-29) mmol/L Anion Gap (5-19) BUN (6-20) mg/dL Creatinine (0.5-0.9) mg/dL GFR Calculation (90-130) mL/min Glucose (65-115) mg/dL Calculated Osmolal ity (285-295) mOsm/k g Calcium (8.5-10.5) mg/dL Total Bilirubin (0.15-1.2) mg/dL AST (0-32) U/L ALT (0-33) U/L Alkaline Phosphata se (35-105) IU/L Creatine Kinase (26-192) U/L Troponin T Baselin e (0-10) ng/L Troponin T 120 Min quileute 6.03 (0-10) ng/L Delta Troponin T 0.03 (0-10) ABS# Total Protein (6.6-8.7) g/dL Albumin (3.5-5.2) g/dL Globulin (1.3-4.6) g/dL Imaging Data^: Other Xray: Attestation: I personally reviewed and interpreted this imaging study as follows: Radiologist's impression: [address] [address]BSmu ReportSigned Patient: Brisa Pryor #: [id number]: 1970Acct#:[id number]/Sex: 50 / FADM Date: 04/17/21Loc: ERRoom/Bed:Attending Dr: Ordering Provider/Ordering MD: Braydon Mcadams MD, [facility] Date of Service: 04/17/21 Procedure(s): XR cervical spine 3V* [id number] Accession Number(s): [id number] Report Number: [id number] PROCEDURE INFORMATION: Exam: XR Cervical Spine Exam date and time: 04/17/2021 4:34 PM Age: 50 years old Clinical indication: Radicular pain (radiculopathy); Cervical region; Additional info: Radicular neck pain TECHNIQUE: Imaging protocol: XR of the cervical spine. Views: 2 or 3 views. COMPARISON: CT head wo con* [id number] 04/14/2021 12:51 PM FINDINGS: The atlantoaxial interval and craniocervical junction are unremarkable. No prevertebral soft tissue swelling is seen. There is straightening of the normal cervical lordosis which may relate to patient positioning or muscle spasm. Mild to moderate degenerative disc disease is noted in the cervical spine. No acute fracture is identified. The visualized lung apices are grossly clear. XR/XR cervical spine 3V* [id number] IMPRESSION: Mild to moderate degenerative disc disease is noted in the cervical spine. Consider MR to further assess if clinically warranted. Dictated By:Aric Garyigned By:Aric Garyigned Date/Time:04/17/216DD/ 1724 CXR: Attestation: I personally reviewed and interpreted this imaging study as follows: Radiologist's impression: [address] [place], [place] [address]DWud ReportSigned Patient: Brisa Pryor #: [id number]: 1970Acct#:[id number]/Sex: 50 / FADM Date: 04/17/21Loc: ERRoom/Bed:Attending Dr: Ordering Provider/Ordering MD: Braydon Mcadams MD, [facility] Date of Service: 04/17/21 Procedure(s): XR chest 1V portable [id number] Accession Number(s): [id number] Report Number: [id number] PROCEDURE INFORMATION: Exam: XR Chest Exam date and time: 04/17/2021 4:34 PM Age: 50 years old Clinical indication: Sternal or substernal chest pain. TECHNIQUE: Imaging protocol: XR of the chest. Views: 1 view. COMPARISON: CR (CHEST, ) 04/14/2021 12:41 PM FINDINGS: Lungs: No pulmonary consolidation. Pleural spaces: No pleural effusion.; No pneumothorax. Heart/Mediastinum: The cardiac silhouette is unchanged. No gross evidence of pneumomediastinum. Bones/joints: No gross fracture. XR/XR chest 1V portable [id number] IMPRESSION: No acute cardiopulmonary abnormality identified. Dictated By:Aric Garyigned By:Aric Garyigned Date/Time:04/17/21 1724DD/ 1722 EKG Data^: EKG 1: Attestation: I personally reviewed and interpreted this EKG as follows: EKG interpretation date: 04/17/21 EKG interpretation time: 16:22 Prior EKG tracings: available for review Interpretation: Sinus rhythm. Heart rate [address] changes. No significant change Computer generated interpretation: Cervical Spine X-Ray 04/17/21 16:34 IMPRESSION: Mild to moderate degenerative disc disease is noted in the cervical spine. Consider MR to further assess if clinically warranted. Chest X-Ray 04/17/21 16:34 IMPRESSION: No acute cardiopulmonary abnormality identified. EKG 2: Attestation: I personally reviewed and interpreted this EKG as follows: EKG interpretation date: 04/17/21 EKG interpretation time: 18:58 Prior EKG tracings: available for review Interpretation: Sinus rhythm. Heart rate [address] changes. No significant change from earlier Computer generated interpretation: Cervical Spine X-Ray 04/17/21 16:34 IMPRESSION: Mild to moderate degenerative disc disease is noted in the cervical spine. Consider MR to further assess if clinically warranted. Chest X-Ray 04/17/21 16:34 IMPRESSION: No acute cardiopulmonary abnormality identified. Discharge Plan Discharge Patient Disposition: Home Clinical Impression: Non-cardiac chest pain, Radicular pain in right arm, Cervical radicular pain Condition: Stable Prescriptions: Continued Aimovig Autoinjector 140 mg/mL auto-injector 140 mg SUBCUT Q30D Qty: 1 RF: 6 Ubrelvy 100 mg tablet 100 mg PO ONCE Qty: 10 RF: 0 prazosin 1 mg Capsule 1 mg PO BEDTIME@2199 RF: 0 hydroxyzine HCl 50 mg Tablet 50 mg PO TID PRN (Reason: Anxiety) RF: 0 amlodipine 5 mg Tablet 5 mg PO BEDTIME@2199 RF: 0 candesartan 16 mg Tablet 16 mg PO BID RF: 0 hydrochlorothiazide 25 mg Tablet 25 mg PO DAILY@0800 RF: 0 hydroxychloroquine 200 mg Tablet 200 mg PO BID@0800,2199 RF: 0 albuterol sulfate 90 mcg/actuation Hfa Aerosol Inhaler 2 puff INHALATION 6XD PRN (Reason: Shortness Of Breath) RF: 0 naproxen 500 mg Tablet 500 mg PO BID@0800,1999 RF: 0 sertraline [Zoloft] 100 mg Tablet 100 mg PO DAILY RF: 0 chlorthalidone 50 mg Tablet 50 mg PO DAILY@0800 RF: 0 pantoprazole 40 mg Tablet,Delayed Release (Dr/Ec) 40 mg PO DAILY@0800 RF: 0 diphenhydramine HCl [Benadryl] 25 mg Capsule 25 mg PO BEDTIME@2199 PRN (Reason: Insomnia) RF: 0 divalproex [Depakote ER] 500 mg Tablet Extended Release 24 Hr 1,500 mg PO BEDTIME@2199 RF: 0 trazodone 300 mg Tablet 300 mg PO BEDTIME@2199 RF: 0 aspirin 81 mg Tablet,Chewable 81 mg PO DAILY RF: 0 gabapentin 100 mg Capsule 100 mg PO TID RF: 0 aripiprazole [Abilify] 10 mg Tablet 10 mg PO DAILY@0800 RF: 0 Tylenol 325 mg Tablet 325 mg PO QID PRN (Reason: Pain) RF: 0 ipratropium-albuterol 0.5 mg-3 mg(2.5 mg base)/3 mL solution for nebulization 3 ml INHALATION DAILY@0800 RF: 0 Miralax 17 gram/dose powder 17 g PO DAILY PRN (Reason: Constipation) RF: 0 losartan 100 mg tablet 100 mg PO DAILY@0800 RF: 0 Symbicort 160-4.5 mcg/actuation Hfa Aerosol Inhaler 2 puff INHALATION Q12H RF: 0 Breo Ellipta 200-25 mcg/dose blister with device 1 inh INHALATION DAILY@0800 RF: 0 Trulance 3 mg tablet 3 mg PO DAILY RF: 0 Discharge Orders: Discharge ED (Routine); Ordered 04/17/21 Ordered By: Braydon Mcadams Referrals: Alpesh Garcia MD [Primary Care Provider] - 1-3 days Discharge Diet: Usual diet Discharge Activity: Increase activity as tolerated Patient Instructions: Cervical Radiculopathy (ED), Noncardiac Chest Pain (ED) Activity Restrictions/Additional Instructions: Return for any new or worsening symptoms. Follow-up with your primary care provider within 3 days. You will need an MRI of your spine of your neck to look for signs of possible compression of the nerves that supply your right arm. Your primary care provider will need to order that MRI. Continue your home medications. 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
[2021-04-17 18:25] LABS: Basophils % 0.5 %; Eosinophils # 0.2 10^3/uL (0.0-0.8); Eosinophils % 2.8 %; Hemoglobin 13.7 g/dL (11.5-15.3); Lymphocytes # 1.6 10^3/uL (0.8-4.8); Lymphocytes % 27.2 %; Mean Corpuscular HGB Conc 31.1 g/dL (30.0-36.0); Mean Corpuscular Hemoglobin 28.7 pg (28.0-34.0); Mean Corpuscular Volume 92.2 fL (81-99); Mean Platelet Volume 10.2 fL (7.4-10.4); Monocytes # 0.6 10^3/uL (0.2-0.9); Monocytes % 10.3 %; Neutrophils # 3.56 10^3/uL (1.8-7.7); Nucleated Red Blood Cells % 0 %; Platelet Count 331 10^3/cmm (130-400); Red Blood Count 4.77 10^6/uL (4.1-5.3); Red Cell Distribution Width 13.8 % (12.1-15.1)
--- NOTE | 2021-04-17 18:37 | ECG_ITS ---
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 Measurements Intervals [place] Rate: 75 P: 21 VT: 152 QRS: 54 QRSD: 92 T: 2 QT: 401 QTc: 448 Interpretive Statements SINUS RHYTHM Compared to ECG 04/17/2021 16:22:08 No significant changes Electronically Signed On 04-18-2021 0:53:35 CDT by Tracy Bo M.D. [id number]
[2021-04-17] MEDS: ketorolac 30 mg/mL INJ IVP (18:50)
[2021-04-17] MEDS: orphenadrine 30 mg/mL Inj 2 mL 60 MG IVP (18:51)
[2021-04-17 18:52] VITALS: PULSE 80; RESP 18; O2SAT 97
[2021-04-17 18:55] VITALS: BP 145/90
[2021-04-17 19:14] LABS: Alanine Aminotransferase 12 U/L (0-33); Albumin Level 4.3 g/dL (3.5-5.2); Alkaline Phosphatase 113 IU/L (35-105); Anion Gap 12.8 (5-19); Aspartate Amino Transferase 11 U/L (0-32); Blood Urea Nitrogen 12 mg/dL (6-20); Calcium 9.4 mg/dL (8.5-10.5); Carbon Dioxide 32 mmol/L (22-29); Chloride 97 mmol/L (98-107); Creatine Phosphokinase 45 U/L (26-192); Globulin 2.7 g/dL (1.3-4.6); Glomerular Filtration Rate 76.2 mL/min (90-130); Glucose 82 mg/dL (65-115); Osmolality Calculated 285 mOsm/kg (285-295); Potassium 3.8 mmol/L (3.5-5.1); Sodium 138 mmol/L (136-145); Total Bilirubin 0.7 mg/dL (0.15-1.2)
[2021-04-17 19:18] LABS: Troponin(5th) Baseline 6 ng/L (0-10)
[2021-04-17 20:49] LABS: Troponin 5 2HR 6.03 ng/L (0-10); Troponin 5 2HR Delta 0.03 ABS# (0-10)
[2021-04-17 21:41] VITALS: BP 144/65; PULSE 73; RESP 18; O2SAT 98
== END 2021-04-17 21:46 | disposition home or self-care (01) ==
PROVIDERS: Emergency Provider Family Medicine; PCP Family Medicine
DX: R07.89 Other chest pain (principal); M54.12 Radiculopathy, cervical region; Z79.82 Long term (current) use of aspirin
CPT/HCPCS: 36415; 71045; 72040; 80053; 82550; 84484; 85025; 93005; 96374; 96375; 99284; J1885; J2360

== ENCOUNTER 2021-04-25 07:09 | Outpatient (CLI) | payer MEDICAID, SELFPAY ==
--- NOTE | 2021-04-25 07:18 | MM_ITS ---
WS: [id number] Bilateral screening digital mammogram, 04/25/2021 Clinical Data: SCREENING Comparison: None. Findings: The breast parenchymal pattern shows fibroglandular tissue No spiculated masses or clustered calcific ations are seen. There are no secondary signs of carcinoma. MM/[place] [id number] Impression: 1. Negative bilateral mammogram with no prior exam for review. 2. Recommend annual screening mammograms. BIRADS: 1-Negative FOLLOW UP: 1 Year Follow-up The CAD drawing checker was used.
== END 2021-04-25 07:10 | disposition home or self-care (01) ==
LOC: RADSHAW 07:16
PROVIDERS: PCP Family Medicine; Visit Provider Family Medicine
DX: M25.50 Pain in unspecified joint (principal); Z12.31 Encounter for screening mammogram for malignant neoplasm of breast; K58.9 Irritable bowel syndrome, unspecified; M54.2 Cervicalgia; G89.29 Other chronic pain; Z11.59 Encounter for screening for other viral diseases
CPT/HCPCS: 36415; 77067; 82306; 82310; 82550; 82728; 82784; 83516; 83540; 83735; 83970; 84100; 84443; 85651; 86140; 86160; 86162; 86235; 86255; 86376; 86704; 86803; 86812; 87340; 99204; 99214

== ENCOUNTER → 2021-05-15 10:22 | Outpatient (BNVA) | payer MEDICAID, SELFPAY | PROVIDERS: PCP Family Medicine; Visit Provider Internal Medicine | DX: M25.50 Pain in unspecified joint (principal); Z79.899 Other long term (current) drug therapy | CPT/HCPCS: 36415; 80053; 85025; 85651; 86140 ==

== ENCOUNTER 2021-05-24 08:34 | Outpatient (CLI) | payer MEDICAID, SELFPAY ==
--- NOTE | 2021-05-24 08:56 | XR_ITS ---
WS: [id number] LUMBAR SPINE: 3 VIEWS TECHNIQUE: AP, lateral and L5-S1 spot. HISTORY: M54.2 - Cervicalgia COMPARISON: None available. Lumbar vertebra are normally aligned. S1 spina bifida occulta. No loss of disc space or vertebral body height. SI joints are symmetric bilaterally. No soft tissue abnormalities. Prior cholecystectomy. XR/XR lumbar spine 2-3V* [id number] IMPRESSION: 1. Negative lumbar spine. 2. Spina bifida occulta at S1.
--- NOTE | 2021-05-24 08:56 | XR_ITS ---
WS: [id number] RIGHT SHOULDER: 2 VIEW(S) TECHNIQUE: Internal and external rotation with Y view. HISTORY: M54.2 - Cervicalgia COMPARISON: None available. No fracture or dislocation or soft tissue abnormality. Glenohumeral and AC joints are unremarkable. XR/XR shoulder RT min 2V* [id number] IMPRESSION: Normal RIGHT shoulder.
--- NOTE | 2021-05-24 08:56 | XR_ITS ---
WS: [id number] LEFT FOOT: 2 VIEW(S) TECHNIQUE: AP and lateral. HISTORY: M25.50 - Pain in unspecified joint COMPARISON: 03/27/2021 No acute fracture or dislocation. Normal tarsal/metatarsal alignment. Mild calculus valgus deformity. Hammertoe deformities. Small calcaneal spur. No erosions. XR/XR foot LT 2V [id number] IMPRESSION: Mild hallux valgus deformity. Small calcaneal spur.
--- NOTE | 2021-05-24 08:56 | XR_ITS ---
WS: [id number] SACROILIAC JOINTS TECHNIQUE: AP and oblique imaging is submitted. HISTORY: L40.9 - Psoriasis, unspecified COMPARISON: None available. Normal appearance of the SI joints with no sclerosis or erosions. No bone destruction. No soft tissue abnormality. XR/XR sacroiliac jts m 3V [id number] IMPRESSION: Normal SI joints.
--- NOTE | 2021-05-24 08:56 | XR_ITS ---
WS: [id number] LEFT HAND: 2 VIEW(S) TECHNIQUE: PA and lateral. HISTORY: M54.2 - Cervicalgia COMPARISON: None available. No acute fracture or dislocation. No soft tissue or bone abnormality. No periostitis, subluxation or erosions. XR/XR hand LT 2V [id number] IMPRESSION: Normal LEFT hand.
--- NOTE | 2021-05-24 08:56 | XR_ITS ---
WS: [id number] RIGHT FOOT: 2 VIEW(S) TECHNIQUE: AP and lateral. HISTORY: M25.50 - Pain in unspecified joint COMPARISON: None available. No acute fracture or dislocation. Normal tarsal/metatarsal alignment. Mild hammertoe deformities. Mild hallux valgus deformity. No soft tissue abnormality or bone destruction. XR/XR foot RT 2V [id number] IMPRESSION: Mild hallux valgus deformity.
--- NOTE | 2021-05-24 08:56 | XR_ITS ---
WS: [id number] RIGHT HAND: 2 VIEW(S) TECHNIQUE: PA and lateral. HISTORY: M54.2 - Cervicalgia COMPARISON: None available. No acute fracture or dislocation. No soft tissue or bone abnormality. No periostitis. No osteopenia. No subluxation or erosions. XR/XR hand RT 2V [id number] IMPRESSION: Normal RIGHT hand.
== END 2021-05-24 08:35 | disposition home or self-care (01) ==
PROVIDERS: PCP Family Medicine; Visit Provider Internal Medicine
DX: M19.90 Unspecified osteoarthritis, unspecified site (principal); M54.2 Cervicalgia; R70.0 Elevated erythrocyte sedimentation rate; M54.9 Dorsalgia, unspecified; G89.29 Other chronic pain; K58.9 Irritable bowel syndrome, unspecified
CPT/HCPCS: 72100; 72202; 73030; 73120; 73620; 99214

== ENCOUNTER 2021-05-24 08:42 | Outpatient (CLI) | payer MEDICAID, SELFPAY ==
[2021-05-24 10:12] LABS: Basophils % 0.8 %; Eosinophils # 0.1 10^3/uL (0.0-0.8); Eosinophils % 1.2 %; Hematocrit 41.9 % (37.0-47.0); Hemoglobin 13.1 g/dL (11.5-15.3); Lymphocytes # 1.4 10^3/uL (0.8-4.8); Lymphocytes % 26.7 %; Mean Corpuscular HGB Conc 31.3 g/dL (30.0-36.0); Mean Corpuscular Hemoglobin 28.5 pg (28.0-34.0); Mean Corpuscular Volume 91.3 fL (81-99); Monocytes # 0.5 10^3/uL (0.2-0.9); Monocytes % 8.7 %; Neutrophils # 3.23 10^3/uL (1.8-7.7); Neutrophils % 62.4 %; Nucleated Red Blood Cells % 0 %; Platelet Count 312 10^3/cmm (130-400); Red Blood Count 4.59 10^6/uL (4.1-5.3); Red Cell Distribution Width 13.2 % (12.1-15.1); White Blood Count 5.2 10^3/uL (4.0-10.0)
[2021-05-24 10:55] LABS: Alanine Aminotransferase 14 U/L (0-33); Albumin Level 4.1 g/dL (3.5-5.2); Alkaline Phosphatase 107 IU/L (35-105); Aspartate Amino Transferase 13 U/L (0-32); Blood Urea Nitrogen 10 mg/dL (6-20); Calcium 8.9 mg/dL (8.5-10.5); Carbon Dioxide 26 mmol/L (22-29); Chloride 100 mmol/L (98-107); Globulin 3.2 g/dL (1.3-4.6); Glomerular Filtration Rate 106.3 mL/min (90-130); Glucose 84 mg/dL (65-115); Osmolality Calculated 280 mOsm/kg (285-295); Sodium 136 mmol/L (136-145); Thyroid Stimulating Hormone 0.81 uIU/mL (0.27-4.20); Total Bilirubin 0.8 mg/dL (0.15-1.2); Total Protein 7.3 g/dL (6.6-8.7); Vitamin B12 400 pg/mL (232-1245)
== END 2021-05-24 08:43 | disposition home or self-care (01) ==
PROVIDERS: PCP Family Medicine; Visit Provider Nurse Practitioner
DX: G43.909 Migraine, unspecified, not intractable, without status migrainosus (principal)
CPT/HCPCS: 36415; 80053; 82607; 84443; 85025

== ENCOUNTER 2021-05-28 08:44 | Outpatient (CLI) | payer MEDICAID, SELFPAY ==
--- NOTE | 2021-05-28 08:48 | US_ITS ---
WS: [id number] ULTRASOUND ABDOMEN LIMITED CLINICAL INFORMATION: RUQ PAIN COMPARISON: None. FINDINGS: Liver Size: Normal. Craniocaudal length: 15.4 cm. Echogenicity: Coarse Surface nodularity: None. Mass (size and location): None. Bile ducts Intrahepatic ducts: Normal. Common bile duct diameter: 0.4 cm. Gallbladder Removed Pancreas Not well visualized Right kidney: Normal. Hydronephrosis: None. Size: 10.7 cm x 5.0 cm x 5.3 cm. Abdominal aorta and IVC Visualized portions are normal. Ascites: None. US/US abdomen limited [id number] IMPRESSION: 1. Diffuse fatty infiltration the liver. Liver size upper limits of normal. 2. Prior cholecystectomy. Normal common bile duct. 3. No hydronephrosis in right kidney.
== END 2021-05-28 08:45 | disposition home or self-care (01) ==
LOC: US 08:45
PROVIDERS: PCP Family Medicine; Visit Provider Family Medicine
DX: R10.11 Right upper quadrant pain (principal); K76.0 Fatty (change of) liver, not elsewhere classified; Z90.49 Acquired absence of other specified parts of digestive tract
CPT/HCPCS: 76705

== ENCOUNTER → 2021-05-30 09:09 | Outpatient (BNVA) | payer MEDICAID, SELFPAY | PROVIDERS: PCP Family Medicine; Referring Provider Family Medicine; Visit Provider Podiatrist Foot & Ankle Surgery | DX: M21.612 Bunion of left foot (principal); M77.32 Calcaneal spur, left foot | CPT/HCPCS: 73630 ==

== ENCOUNTER 2021-05-30 10:30 | Outpatient (CLI) | payer MEDICAID, SELFPAY | END 2021-05-30 10:31 | disposition home or self-care (01) | LOC: SPT 10:32 | PROVIDERS: PCP Family Medicine; Visit Provider Podiatrist Foot & Ankle Surgery | DX: Z46.89 Encounter for fitting and adjustment of other specified devices (principal); M79.672 Pain in left foot; M72.2 Plantar fascial fibromatosis; M76.72 Peroneal tendinitis, left leg | CPT/HCPCS: 97760; L4361 ==

== ENCOUNTER 2021-06-07 08:17 | Outpatient (CLI) | payer MEDICAID, SELFPAY ==
--- NOTE | 2021-06-07 08:21 | MR_ITS ---
WS: [id number] MRA ANGIOGRAPHY [place] HISTORY: G43.909 - Migraine, unspecified, not intractable COMPARISON: None available. TECHNIQUE: 3-D MR angiography is performed of the [place]. All images are reviewed including source images. Distal vertebral and basilar arteries are intact with no significant stenosis or plaque. Posterior ce rebral arteries are normal course and caliber. Posterior communicating arteries are both patent. Hypo plastic LEFT posterior communicating artery. Intracranial portion of the internal carotid arteries are normal course and caliber. No significant a therosclerosis, stenosis or aneurysm identified. Middle and anterior cerebral arteries are both paten t with no significant disease. Anterior communicating artery is also normal. MR/MR angio head wo con [id number] IMPRESSION: Normal MRA [place]. No significant atherosclerosis and no occlusions.
--- NOTE | 2021-06-07 08:21 | MR_ITS ---
WS: [id number] MRI BRAIN WITH AND WITHOUT CONTRAST HISTORY: G43.909 - Migraine, unspecified, not intractable, without... COMPARISON: None available. TECHNIQUE: Multiplanar imaging performed through the brain with MultiHance 20 ml's IV. No acute infarcts are seen. Chun-white matter differentiation is well preserved. There are a few scat tered T2 and FLAIR signal hyperintensities in the subcortical and periventricular white matter which are very nonspecific and appropriate for the patient's age. No susceptibility artifacts or prior lacunar infarcts. Ventricles and extra-axial spaces are normal. Clivus and pituitary gland are normal. Visualized posterior fossa and brainstem are also normal. Postcontrast images are negative for masses or vascular malformations. Dural venous sinuses are normal. Paranasal sinuses: Well aerated with no significant disease. Mastoid air cells: Normal. Calvarium and scalp: Normal. MR/MR head wo/w con [id number] IMPRESSION: 1. Normal MRI brain with contrast. 2. No mass or abnormal enhancement. No sinus disease.
--- NOTE | 2021-06-07 08:45 | MR_ITS ---
WS: [id number] MRI CERVICAL SPINE NONCONTRAST HISTORY: M54.2 - Cervicalgia COMPARISON: None available. Technique: Multiplanar, multisequence noncontrast imaging of the cervical spine. Mild straightening of the normal cervical lordosis. No fracture. Mild disc space narrowing and desicc ation. Signal within the cervical cord is normal. Visualized posterior fossa is unremarkable. Craniocervical junction, C1 and C2 relationship, odontoid process and soft tissues are normal. C2-C3: Normal. C3-C4: RIGHT foraminal disc osteophyte complex with only minimal narrowing of the RIGHT foramen. C4-C5: Mild annular disc bulging and small osteophytes. No significant stenosis. Very mild annular di sc bulging and small disc osteophyte complexes and the foramen. Mild bilateral foraminal narrowing. C5-C6: Mild annular disc bulging and osteophytic ridging with mild foraminal narrowing. Mild encroach ment upon the ventral thecal sac by disc bulging. Mild central stenosis. C6-C7: Normal. C7-T1: Normal. Paraspinal soft tissue are normal. MR/MR cervical spin wo con* [id number] IMPRESSION: 1. No high-grade central stenosis. 2. Mild central and bilateral foraminal stenosis at C5-6 due to disc and osteo phyte disease. 3. Small disc osteophyte complex RIGHT C3-4 foramen with mild narrowing. 4. Mild bilateral foraminal narrowing predominantly due to osteophyte disease at C4-5.
[2021-06-07] MEDS: gadobenate dimeglumine 20 mL vial IV (12:16)
== END 2021-06-07 08:18 | disposition home or self-care (01) ==
PROVIDERS: PCP Family Medicine; Visit Provider Nurse Practitioner
DX: G43.909 Migraine, unspecified, not intractable, without status migrainosus (principal); M54.2 Cervicalgia; R29.2 Abnormal reflex; M48.02 Spinal stenosis, cervical region; M25.78 Osteophyte, vertebrae
CPT/HCPCS: 70544; 70553; 72141; A9577

== ENCOUNTER 2021-06-08 06:58 | Emergency (ER) | payer MEDICAID, SELFPAY ==
[2021-06-08 07:08] VITALS: BP 148/101; PULSE 85; RESP 20; TEMP 36.6; O2SAT 96
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
--- NOTE | 2021-06-08 07:21 | XR_ITS ---
WS: [id number] Right shoulder, 2 views, 06/08/2021 Clinical Data: pain, trauma Comparison: Right shoulder, 05/24/2021. Findings: No fractures or dislocations are seen. The AC joint is normal. The adjacent right clavicle, right sca pula and ribs are normal. The soft tissues are unremarkable. XR/XR shoulder RT min 2V* [id number] Impression: Negative right shoulder.
--- NOTE | 2021-06-08 07:21 | XR_ITS ---
WS: [id number] Portable AP upright chest, 06/08/2021 Clinical Data: pain ant right ribs Comparison: Portable chest, 04/17/2021 Findings: No nodules, masses or effusions are seen. The heart is normal. The pulmonary vascularity is not increased. No pneumonia or pneumothorax is seen. XR/XR chest 1V [id number] Impression: Negative chest.
--- NOTE | 2021-06-08 07:21 | XR_ITS ---
WS: [id number] Right elbow, 2 views, 06/08/2021 Clinical Data: pain, trauma Comparison: None. Findings: No fractures or dislocations are seen. The radial head is normal. The soft tissues are unremarkable. XR/XR elbow RT 2V [id number] Impression: Negative right elbow.
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
[2021-06-08] MEDS: acetaminophen 500 mg Tablet 1000 MG PO (07:39)
[2021-06-08] MEDS: amoxicillin-clav 875-125 mg Tablet 1 TAB PO (07:39)
[2021-06-08] MEDS: ketorolac 30 mg/mL INJ 15 MG IM (07:39)
[2021-06-08] MEDS: tetanus-dipt-pertussis 0.5 mL SDV IM (07:40)
[2021-06-08 07:53] VITALS: BP 152/88; PULSE 94; RESP 18; O2SAT 97
[2021-06-08 08:50] VITALS: PULSE 67; RESP 16; O2SAT 97
== END 2021-06-08 08:55 | disposition home or self-care (01) ==
PROVIDERS: Emergency Provider Emergency Medicine; PCP Family Medicine
DX: S41.151A Open bite of right upper arm, initial encounter (principal); Y04.1XXA Assault by human bite, initial encounter; Y99.0 Civilian activity done for income or pay; M79.10 Myalgia, unspecified site; M25.50 Pain in unspecified joint; Z79.82 Long term (current) use of aspirin; Z23 Encounter for immunization
CPT/HCPCS: 71045; 73030; 73070; 73090; 90471; 90715; 96372; 99283; J1885

== ENCOUNTER 2021-06-12 15:50 | Emergency (ER) | payer MEDICAID, SELFPAY ==
[2021-06-12 16:19] VITALS: BP 151/85; PULSE 94; RESP 20; TEMP 36.9; O2SAT 94
--- NOTE | 2021-06-12 18:49 | ED_ITS ---
HPI - Abdominal Pain General: Chief Complaint: Abdominal Pain Stated Complaint: ABD PAIN/CRAMPING; N/V Time Seen by Provider: 06/12/21 18:43 Source: patient Mode of arrival: ambulatory Limitations: no limitations History of Present Illness: HPI narrative: 50-year-old female who has a history of liver disease states been having abdominal pain of last 3 days. States she has had decreased appetite. States her pain is diffuse and rates it a 8 out of 10. Denies any worsening improving factors. She denies any fevers. Denies any chest pain. Denies any radiation of her pain. Denies any difficulty urinating or pain with urinating Associated Symptoms: Denies chills, dysuria and fever(s) Review of Systems Const: Denies: fever(s), chills, body aches or change in appetite Eyes: Denies: blurry vision or eye discomfort ENMT: Denies: throat pain or dental pain Card: Denies: chest pain Resp: Denies: dyspnea GI: Reports: abdominal pain : Denies: dysuria Musc: Denies: neck pain or back pain Skin/Breast: Denies: rash Neuro: Denies: headache(s) Psych: Denies: depression Rui/Lymph: Denies: easy bruising All/Imm: Denies: urticaria PFSH ED PFSH: Medical History Abnormal reflex Neck pain Family History Family/Other Cancer Diabetes Father Diabetes Hyperlipidemia Hypertension Stroke Mother Hypertension Stroke CAD (coronary artery disease) Rheumatoid arthritis Social History Alcohol intake: never Physical Exam Const: COMMON NORMALS: no acute distress, patient oriented x3 and healthy appearing HENMT: COMMON NORMALS: normocephalic and atraumatic HEAD & SCALP: normocephalic and atraumatic Eye: COMMON NORMALS: Equal, round and reactive pupils present and EOMs intact bilaterally PUPIL: Yes Equal, round and reactive pupils present Neck/C-Spine: COMMON NORMALS: full ROM and supple Chest: COMMONS NORMALS: normal inspection of the chest and normal palpation of entire chest wall Resp: COMMON NORMALS: normal respiratory effort, No retractions, No use of accessory muscles and clear to auscultation bilaterally AUSCULTATION: clear to auscultation bilaterally Cardio: COMMON NORMALS: regular rate, regular rhythm and No murmurs present (Cardio) RATE: regular rate RHYTHM: regular rhythm GI: COMMON NORMALS: Normal to inspection, nondistended, normoactive bowel sounds present, Soft to palpation, non-tender and no masses PALPATION: Yes Soft to palpation and Yes Tenderness to palpation present (GI) (diffuse tenderness) Extremity: COMMON NORMALS: normal to inspection and full ROM Neuro: COMMON NORMALS: patient oriented x3, moves all extremities and no focal motor deficits Psych: COMMON NORMALS: mental status grossly normal, Normal thought process present and cooperative THOUGHT PROCESS: Normal thought process present Skin: COMMON NORMALS: no rashes or lesions noted and no wounds GENERAL SKIN EXAM: no rashes or lesions noted Course Vital Signs: Vital signs: Vital Signs Temperature 98.5 F 06/12/21 16:19 Pulse Rate 74 06/12/21 20:58 Respiratory Rate 16 06/12/21 20:58 Blood Pressure 153/75 06/12/21 20:58 Pulse Oximetry 97 06/12/21 20:58 MDM - Abdominal Pain MDM Narrative: Medical decision making narrative: Patient presents here with abdominal pain patient CT shows diverticulitis. She has no abscess or perforation patient's white count here is normal. She is not septic appearing. Her pain is much improved. We will place her on pain meds along with antibiotics and she is stable for discharge. She is to follow-up with PCP and return if worsening. Lab Data: Labs: Lab Results 06/12/21 06/12/21 06/12/21 Range/Units 19:18 19:18 19:18 WBC 7.9 (4.0-10.0) 10^3/ uL RBC 4.42 (4.1-5.3) 10^6/u L Hgb 12.9 (11.5-15.3) g/dL Hct 41.5 (37.0-47.0) % MCV 93.9 (81-99) fl MCH 29.2 (28.0-34.0) pg MCHC 31.1 (30.0-36.0) g/dL RDW 13.8 (12.1-15.1) % Plt Count 274 (130-400) 10^3/c mm MPV 10.0 (7.4-10.4) fL Neut % (Auto) 68.3 % Lymph % (Auto) 20.6 % Sheridan % (Auto) 8.8 % Eos % (Auto) 1.4 % Baso % (Auto) 0.6 % Neut # (Auto) 5.42 (1.8-7.7) 10^3/u L Lymph # (Auto) 1.6 (0.8-4.8) 10^3/u L Sheridan # (Auto) 0.7 (0.2-0.9) 10^3/u L Eos # (Auto) 0.1 (0.0-0.8) 10^3/u L Baso # (Auto) 0.1 (0.0-0.1) 10^3/u L Nucleated RBC % (a uto) 0 % Nucleated RBCs # 0.0 /100WBC Sodium 137 (136-145) mmol/L Potassium 3.8 (3.5-5.1) mmol/L Chloride 103 (98-107) mmol/L Carbon Dioxide 22 (22-29) mmol/L Anion Gap 15.8 (5-19) BUN 8 (6-20) mg/dL Creatinine 0.5 (0.5-0.9) mg/dL GFR Calculation 131.1 H (90-130) mL/min Glucose 89 (65-115) mg/dL Calculated Osmolal ity 282 L (285-295) mOsm/k g Calcium 8.8 (8.5-10.5) mg/dL Total Bilirubin 1.1 (0.15-1.2) mg/dL AST 14 (0-32) U/L ALT 17 (0-33) U/L Alkaline Phosphata se 114 H (35-105) IU/L Total Protein 7.2 (6.6-8.7) g/dL Albumin 4.0 (3.5-5.2) g/dL Globulin 3.2 (1.3-4.6) g/dL Lipase 33 (13-60) U/L HCG, Qual Negative (Negative) Imaging Data ^: CT Abd/Pel: Attestation: I personally reviewed and interpreted this imaging study as follows: Radiologist's impression: [employer] [address] [address] Scan Report Signed Patient: Nani Pryor Unit #: [id number] : 1970 Age/Sex: 50 / F ADM Date: 06/12/21 Loc: ER Room/Bed: Attending Dr: Ordering Provider/Ordering MD: Leon Moura MD Date of Service: 06/12/21 Procedure(s): CT abdomen pelvis w con* [id number] Accession Number(s): [id number] Report Number: [id number] PROCEDURE INFORMATION: Exam: CT Abdomen And Pelvis With Contrast Exam date and time: 06/12/2021 6:49 PM Age: 50 years old Clinical indication: Nausea and vomiting; Abdominal pain; Generalized; Prior surgery; Surgery type: Hyst, tubal, gb; Additional info: Abd pain TECHNIQUE: Imaging protocol: Computed tomography of the abdomen and pelvis with contrast. Radiation optimization: All CT scans at this facility use at least one of these dose optimization techniques: automated exposure control; mA and/or kV adjustment per patient size (includes targeted exams where dose is matched to clinical indication); or iterative reconstruction. Contrast material: OMNI 300; Contrast volume: 95 ml; Contrast route: INTRAVENOUS (IV); COMPARISON: CT abdomen pelvis w con* [id number] 03/03/2021 1:54 PM RADIATION DOSE METRICS: Total DLP (mGy-cm): 1809.64 FINDINGS: Liver: 1.7 cm subcapsular left liver lobe nodule is unchanged in size and has a small focus of peripheral nodular enhancement. Gallbladder and bile ducts: Cholecystectomy. The bile ducts are within normal limits. Pancreas: Normal. No ductal dilation. Spleen: Normal. No splenomegaly. Adrenal glands: Normal. No mass. Kidneys and ureters: Normal. No hydronephrosis. Stomach and bowel: Diverticulosis of the descending and sigmoid colon. Inflammation and fat stranding around a single posterior diverticulum in the proximal sigmoid colon. The stomach and small bowel are unremarkable. No obstruction. Appendix: The appendix is visualized and is normal. Intraperitoneal space: Unremarkable. No free air. No significant fluid collection. Vasculature: Unremarkable. No abdominal aortic aneurysm. Lymph nodes: Unremarkable. No enlarged lymph nodes. Urinary bladder: Unremarkable as visualized. Reproductive: The uterus is absent. The ovaries are normal. Bones/joints: Unremarkable. No acute fracture. Soft tissues: Unremarkable. CT/CT abdomen pelvis w con* [id number] IMPRESSION: 1. Acute diverticulitis in the proximal sigmoid colon. 2. Stable 1.7 cm indeterminate nodule in the left liver lobe, most likely an hemangioma. Further evaluation with non-emergent liver MRI is recommended. Radiation Dose CTDIVOL = (mGy): DLP = 1809.64 (mGy-cm) Dictated By: Robbie Culver Signed By: oRbbie Culver Signed Date/Time: 06/12/212024 DD/ 23 Discharge Plan Discharge Patient Disposition: Home Clinical Impression: Diverticulitis Condition: Stable Prescriptions: New hydrocodone-acetaminophen 5-325 mg tablet 1 tab PO Q6H PRN (Reason: pain) Qty: 14 RF: 0 ondansetron 4 mg tablet,disintegrating 4 mg PO Q6H PRN (Reason: nausea and vomiting) Qty: 14 RF: 0 ciprofloxacin HCl 500 mg tablet 500 mg PO Q12H Qty: 14 RF: 0 Flagyl 500 mg tablet 500 mg PO Q8H 7 Days Qty: 21 RF: 0 No Action cyclobenzaprine 10 mg tablet 10 mg PO TID PRNRF: 0 (DME) cam boot See Rx Instructions .ROUTE .MEDSUPPLY Qty: 1 RF: 0 prednisone 10 mg tablet 10 mg PO DAILY Qty: 42 RF: 0 prednisone 5 mg tablet See Rx Instructions PO DAILY Qty: 60 RF: 0 diazepam [Valium] 5 mg tablet 10 mg PO ONCE Qty: 2 RF: 0 Ubrelvy 100 mg tablet See Rx Instructions .ROUTE .COMPLEX Qty: 10 RF: 0 Ajovy Autoinjector 225 mg/1.5 mL auto-injector 225 mg SUBCUT ONCE 30 Days Qty: 1.5 RF: 2 prazosin 1 mg Capsule 1 mg PO BEDTIME@2200 RF: 0 hydroxyzine HCl 50 mg Tablet 50 mg PO TID PRN (Reason: Anxiety) RF: 0 amlodipine 5 mg Tablet 5 mg PO BEDTIME@2200 RF: 0 candesartan 16 mg Tablet 16 mg PO BID RF: 0 hydrochlorothiazide 25 mg Tablet 25 mg PO DAILY@0800 RF: 0 hydroxychloroquine 200 mg Tablet 200 mg PO BID@0800,2200 RF: 0 albuterol sulfate 90 mcg/actuation Hfa Aerosol Inhaler 2 puff INHALATION 6XD PRN (Reason: Shortness Of Breath) RF: 0 sertraline [Zoloft] 100 mg Tablet 100 mg PO DAILY RF: 0 chlorthalidone 50 mg Tablet 50 mg PO DAILY@0800 RF: 0 pantoprazole 40 mg Tablet,Delayed Release (Dr/Ec) 40 mg PO DAILY@0800 RF: 0 diphenhydramine HCl [Benadryl] 25 mg Capsule 25 mg PO BEDTIME@2200 PRN (Reason: Insomnia) RF: 0 divalproex [Depakote ER] 500 mg Tablet Extended Release 24 Hr 1,500 mg PO BEDTIME@2200 RF: 0 trazodone 300 mg Tablet 300 mg PO BEDTIME@2200 RF: 0 aspirin 81 mg Tablet,Chewable 81 mg PO DAILY RF: 0 gabapentin 100 mg Capsule 100 mg PO TID RF: 0 aripiprazole [Abilify] 10 mg Tablet 10 mg PO DAILY@0800 RF: 0 Tylenol 325 mg Tablet 325 mg PO QID PRN (Reason: Pain) RF: 0 ipratropium-albuterol 0.5 mg-3 mg(2.5 mg base)/3 mL solution for nebulization 3 ml INHALATION DAILY@0800 RF: 0 Miralax 17 gram/dose powder 17 g PO DAILY PRN (Reason: Constipation) RF: 0 losartan 100 mg tablet 100 mg PO DAILY@0800 RF: 0 Symbicort 160-4.5 mcg/actuation Hfa Aerosol Inhaler 2 puff INHALATION Q12H RF: 0 Breo Ellipta 200-25 mcg/dose blister with device 1 inh INHALATION DAILY@0800 RF: 0 Trulance 3 mg tablet 3 mg PO DAILY RF: 0 Augmentin 875-125 mg tablet 1 tab PO Q12H Qty: 14 RF: 0 Discharge Orders: Discharge ED (Routine); Ordered 06/12/21 Ordered By: Leon Moura Referrals: Alpesh Garcia MD [Primary Care Provider] - 1-3 days Discharge Diet: Advance as tolerated Discharge Activity: Resume usual activity Patient Instructions: Diverticulitis (ED), Opioid Safety Stand Alone Forms: Work/School Release Coding Level of Care Code ED 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
[2021-06-12 19:22] LABS: Basophils # 0.1 10^3/uL (0.0-0.1); Basophils % 0.6 %; Eosinophils # 0.1 10^3/uL (0.0-0.8); Eosinophils % 1.4 %; Hematocrit 41.5 % (37.0-47.0); Hemoglobin 12.9 g/dL (11.5-15.3); Lymphocytes # 1.6 10^3/uL (0.8-4.8); Lymphocytes % 20.6 %; Mean Corpuscular HGB Conc 31.1 g/dL (30.0-36.0); Mean Corpuscular Hemoglobin 29.2 pg (28.0-34.0); Mean Corpuscular Volume 93.9 fl (81-99); Monocytes # 0.7 10^3/uL (0.2-0.9); Monocytes % 8.8 %; Neutrophils # 5.42 10^3/uL (1.8-7.7); Neutrophils % 68.3 %; Nucleated Red Blood Cells % 0 %; Platelet Count 274 10^3/cmm (130-400); Red Blood Count 4.42 10^6/uL (4.1-5.3); Red Cell Distribution Width 13.8 % (12.1-15.1); White Blood Count 7.9 10^3/uL (4.0-10.0)
[2021-06-12 19:30] VITALS: RESP 18
[2021-06-12] MEDS: HYDROmorphone 1 mg/mL INJ 1 mL IVP (19:30)
[2021-06-12] MEDS: ondansetron 2 mg/ML SDV 2 mL 4 MG IVP (19:30)
[2021-06-12] MEDS: iohexol 300 mg/mL 100 mL Btl IV (19:37)
[2021-06-12] MEDS: sodium chloride 0.9% 1,000 ML 999 ML IV (19:43)
[2021-06-12 19:51] LABS: Alanine Aminotransferase 17 U/L (0-33); Alkaline Phosphatase 114 IU/L (35-105); Anion Gap 15.8 (5-19); Aspartate Amino Transferase 14 U/L (0-32); Blood Urea Nitrogen 8 mg/dL (6-20); Calcium 8.8 mg/dL (8.5-10.5); Carbon Dioxide 22 mmol/L (22-29); Chloride 103 mmol/L (98-107); Globulin 3.2 g/dL (1.3-4.6); Glomerular Filtration Rate 131.1 mL/min (90-130); Glucose 89 mg/dL (65-115); Lipase 33 U/L (13-60); Osmolality Calculated 282 mOsm/kg (285-295); Potassium 3.8 mmol/L (3.5-5.1); Sodium 137 mmol/L (136-145); Total Bilirubin 1.1 mg/dL (0.15-1.2); Total Protein 7.2 g/dL (6.6-8.7)
[2021-06-12 20:06] VITALS: BP 153/75; PULSE 78; RESP 16; O2SAT 94
[2021-06-12 20:14] LABS: HCG, Serum Qual Negative (Negative)
[2021-06-12 20:58] VITALS: BP 153/75; PULSE 74; RESP 16; O2SAT 97
== END 2021-06-12 20:59 | disposition home or self-care (01) ==
PROVIDERS: Emergency Provider Emergency Medicine; PCP Family Medicine
DX: K57.32 Diverticulitis of large intestine without perforation or abscess without bleeding (principal)
CPT/HCPCS: 74177; 80053; 83690; 84703; 85025; 96361; 96374; 96375; 99284; J1170; J2405; J7030; Q9967

== ENCOUNTER 2021-06-14 15:28 | Inpatient (IN) | payer MEDICAID, SELFPAY ==
[2021-06-14 16:03] VITALS: BP 152/101; PULSE 80; RESP 18; TEMP 36.9; O2SAT 97; BMI 41.1
--- NOTE | 2021-06-14 17:37 | XRR_ITS ---
PROCEDURE INFORMATION: Exam: XR Abdomen Exam date and time: 06/14/2021 5:37 PM Age: 50 years old Clinical indication: Abdominal pain; Generalized; Additional info: R/O perforation, recent HX of diveritculits TECHNIQUE: Imaging protocol: XR of the abdomen. Views: 2 Views. Upright and supine views. COMPARISON: CT abdomen pelvis w con* [id number] 06/12/2021 7:34 PM FINDINGS: Gastrointestinal tract: Stool and gas scattered throughout normal caliber colon. The rectum is decompressed with a small amount of gas. No small bowel distention or obstruction. Intraperitoneal space: No pneumoperitoneum. Organs: The cholecystectomy clips. Bones/joints: Unremarkable for age. XR/XR acute abdomen series [id number] IMPRESSION: 1. Nonspecific nonobstructive bowel gas pattern. 2. Normal chest.
[2021-06-14 19:52] LABS: Basophils % 0.7 %; Eosinophils # 0.2 10^3/uL (0.0-0.8); Eosinophils % 2.9 %; Hematocrit 40.3 % (37.0-47.0); Hemoglobin 12.7 g/dL (11.5-15.3); Lymphocytes # 1.7 10^3/uL (0.8-4.8); Lymphocytes % 29.3 %; Mean Corpuscular HGB Conc 31.5 g/dL (30.0-36.0); Mean Corpuscular Hemoglobin 28.7 pg (28.0-34.0); Mean Platelet Volume 9.9 fL (7.4-10.4); Monocytes # 0.5 10^3/uL (0.2-0.9); Monocytes % 8.1 %; Nucleated Red Blood Cells % 0 %; Platelet Count 292 10^3/cmm (130-400); Red Blood Count 4.43 10^6/uL (4.1-5.3); Red Cell Distribution Width 13.5 % (12.1-15.1); White Blood Count 5.9 10^3/uL (4.0-10.0)
--- NOTE | 2021-06-14 19:58 | PC.PHAR ---
PT STATES SHE IS TAKING MOST OF THE MEDICATIONS ON HER LIST. MANY OF THEM, HOWEVER, HAVE NOT BEEN FILLED RECENTLY. I TRIED EXPLAINING TO THE PT THAT SONY MEDICATIONS HAD NOT BEEN FILLED, BUT SHE SAID SHE HAD PICKED THEM UP. PT IS ADAMENT THAT SHE IS STILL TAKING THEM. I TRIED UPDATING THE PHARMACY LIST, BUT IT STILL DIDN'T SHOW MANY OF THE MEDICATIONS ON HER LIST. PT STATES THAT SHE HASN'T TAKEN ANYTHING AT ALL FOR AT LEAST A WEEK BECAUSE SHE HAS BEEN TOO SICK. PT'S PHARMACY IS CLOSED AT THIS TIME SO I CANNOT VERIFY HER MEDICATIONS.
--- NOTE | 2021-06-14 20:27 | CTR_ITS ---
PROCEDURE INFORMATION: Exam: CT Abdomen And Pelvis With Contrast Exam date and time: 06/14/2021 8:27 PM Age: 50 years old Clinical indication: Abdominal pain; Localized; Left lower quadrant (llq); Prior surgery; Surgery type: Gb. Hysterectomy. ; Patient HX: Persistent llq pain. Diagnosed with diverticulitis on 06/12/2021. ; Additional info: Abdominal pain, diverticulitis, vomiting TECHNIQUE: Imaging protocol: Computed tomography of the abdomen and pelvis with contrast. Radiation optimization: All CT scans at this facility use at least one of these dose optimization techniques: automated exposure control; mA and/or kV adjustment per patient size (includes targeted exams where dose is matched to clinical indication); or iterative reconstruction. Contrast material: OMNI 300; Contrast volume: 95 ml; Contrast route: INTRAVENOUS (IV); COMPARISON: CT abdomen pelvis w con* [id number] 06/12/2021 7:34 PM RADIATION DOSE METRICS: Total DLP (mGy-cm): 1837.24 FINDINGS: Liver: Stable 1.7 cm subcapsular nodule in the left liver lobe with nodular peripheral enhancement. Gallbladder and bile ducts: Cholecystectomy. Pancreas: Normal. No ductal dilation. Spleen: Normal. No splenomegaly. Adrenal glands: Normal. No mass. Kidneys and ureters: Normal. No hydronephrosis. Stomach and bowel: Diverticulosis of the left colon. There is mild inflammation surrounding a single diverticulum in the posterior distal descending colon. The remainder of the colon is unremarkable. Stomach and small bowel are normal. No obstruction. Appendix: The appendix is visualized and is normal. Intraperitoneal space: Unremarkable. No free air. No significant fluid collection. Vasculature: Unremarkable. No abdominal aortic aneurysm. Lymph nodes: Unremarkable. No enlarged lymph nodes. Urinary bladder: Unremarkable as visualized. Reproductive: The uterus is absent. Normal ovaries. Bones/joints: Bone island in the right iliac bone. No fracture. Soft tissues: Unremarkable. CT/CT abdomen pelvis w con* [id number] IMPRESSION: 1. Mild acute diverticulitis in the distal descending colon. 2. Stable 1.7 cm left liver nodule, most likely a benign hemangioma. Radiation Dose CTDIVOL = (mGy): DLP = 1837.24 (mGy-cm)
[2021-06-14 20:38] LABS: Alanine Aminotransferase 19 U/L (0-33); Albumin Level 4.1 g/dL (3.5-5.2); Alkaline Phosphatase 121 IU/L (35-105); Anion Gap 13.3 (5-19); Aspartate Amino Transferase 16 U/L (0-32); Blood Urea Nitrogen 7 mg/dL (6-20); Carbon Dioxide 29 mmol/L (22-29); Chloride 102 mmol/L (98-107); Globulin 2.8 g/dL (1.3-4.6); Glomerular Filtration Rate 131.1 mL/min (90-130); Glucose 96 mg/dL (65-115); Lipase 62 U/L (13-60); Osmolality Calculated 288 mOsm/kg (285-295); Potassium 4.3 mmol/L (3.5-5.1); Sodium 140 mmol/L (136-145); Total Bilirubin 0.7 mg/dL (0.15-1.2); Total Protein 6.9 g/dL (6.6-8.7)
[2021-06-14] MEDS: iohexol 300 mg/mL 100 mL Btl IV (20:45)
[2021-06-14] MEDS: ondansetron 2 mg/ML SDV 2 mL 4 MG IVP (21:19)
[2021-06-14] MEDS: morphine 4 mg/mL SDV 1 mL IVP (21:19)
[2021-06-14] MEDS: piperacillin-tazobactam 3.375 GM in sodium chloride 0.9% (plus) 50 ML IV (21:21)
[2021-06-14] MEDS: sodium chloride 0.9% 1,000 ML 999 ML IV (21:21)
[2021-06-14 21:54] LABS: Add Urine Microscopic? NO; Charge for UA Resulting for Rev
[2021-06-14 21:58] LABS: Bilirubin Urine Neg (Negative); Blood Urine Neg (Negative); Glucose Urine UA Norm (Normal); Ketones Urine Negative (Negative); Leukocyte Esterase Urine Negative (Negative); Nitrate Urine Negative (Negative); Protein Urine Neg (Negative); Specific Gravity, Urine 1.015 (1.005-1.030); Urine Appearance Clear (CLEAR); Urine Color Yellow (Yellow); Urobilinogen Urine Norm (Negative); pH Urine 5 (5-7)
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
[2021-06-15] VITALS (13 sets, daily range): BP systolic 102–180; BP diastolic 69–100; PULSE 62–93; RESP 14–22; TEMP 36.6–37; O2SAT 94–98; BMI 41.1
[2021-06-15] MEDS: enoxaparin 40 mg/0.4 mL Syringe SUBCUT ×2 (03:25→21:55)
[2021-06-15] MEDS: famotidine 20 mg/2 mL INJ IVP (03:25)
[2021-06-15] MEDS: HYDROcodone-acetaminophen 5-325 mg Tablet 1 TAB PO (03:25)
[2021-06-15] MEDS: sodium chloride 0.9% 1,000 ML 100 ML IV (03:26)
[2021-06-15] MEDS: morphine 4 mg/mL SDV 1 mL 2 MG IVP ×3 (03:48→16:31)
--- NOTE | 2021-06-15 04:49 | US_ITS ---
WS: [id number] ULTRASOUND SOFT TISSUES RIGHT forearm HISTORY: right forearm to evaluate for abscess COMPARISON: None available. TECHNIQUE: 2-D and color Doppler imaging is submitted. Minimally complex fluid collection in the soft tissues of the RIGHT forearm at the area of injury. Th is elongated collection measures 2.5 x 2.0 x 0.7 cm. Predominantly cystic with a few areas of nodular ity and wall thickening. No increased vascularity. Mild soft tissue edema. US/US soft tissue/extremity [id number] IMPRESSION: Minimally complex fluid collection at the site of injury within the RIGHT forea rm. This collection may be developing abscess although there is no increased va scularity at this time. Most likely posttraumatic seroma.
[2021-06-15] MEDS: piperacillin-tazobactam 3.375 GM in sodium chloride 0.9% (plus) 50 ML IV ×3 (05:56→21:55)
[2021-06-15] MEDS: losartan 50 mg Tablet 100 MG PO (07:49)
--- NOTE | 2021-06-15 07:49 | PC.NURSE ---
patient resting comfortably. no acute distress noted.
[2021-06-15 09:44] LABS: Basophils % 0.4 %; Eosinophils # 0.1 10^3/uL (0.0-0.8); Eosinophils % 2.9 %; Hematocrit 36.3 % (37.0-47.0); Hemoglobin 11.4 g/dL (11.5-15.3); Lymphocytes # 1.8 10^3/uL (0.8-4.8); Lymphocytes % 35.6 %; Mean Corpuscular HGB Conc 31.4 g/dL (30.0-36.0); Mean Corpuscular Hemoglobin 28.9 pg (28.0-34.0); Mean Corpuscular Volume 92.1 fl (81-99); Monocytes # 0.5 10^3/uL (0.2-0.9); Monocytes % 10.6 %; Neutrophils # 2.47 10^3/uL (1.8-7.7); Neutrophils % 50.3 %; Nucleated Red Blood Cells % 0 %; Platelet Count 265 10^3/cmm (130-400); Red Blood Count 3.94 10^6/uL (4.1-5.3); Red Cell Distribution Width 13.5 % (12.1-15.1); White Blood Count 4.9 10^3/uL (4.0-10.0)
[2021-06-15 10:07] LABS: Alanine Aminotransferase 16 U/L (0-33); Albumin Level 3.4 g/dL (3.5-5.2); Alkaline Phosphatase 98 IU/L (35-105); Anion Gap 12.8 (5-19); Aspartate Amino Transferase 15 U/L (0-32); Blood Urea Nitrogen 7 mg/dL (6-20); Carbon Dioxide 26 mmol/L (22-29); Chloride 104 mmol/L (98-107); Creatinine Clr Calc Pharmacy 136.7319; Globulin 2.6 g/dL (1.3-4.6); Glomerular Filtration Rate 106.3 mL/min (90-130); Glucose 87 mg/dL (65-115); Osmolality Calculated 285 mOsm/kg (285-295); Potassium 3.8 mmol/L (3.5-5.1); Sodium 139 mmol/L (136-145)
[2021-06-15] MEDS: ARIPiprazole 10 mg Tablet PO (11:57)
[2021-06-15] MEDS: pantoprazole 40 mg SDV IVP ×2 (11:57→21:55)
[2021-06-15] MEDS: sertraline 100 mg Tablet PO (11:57)
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
[2021-06-15] MEDS: sucralfate 1 gm/10 mL Oral Liq UDC PO (16:30)
[2021-06-15] MEDS: ondansetron 2 mg/ML SDV 2 mL 4 MG IVP (16:44)
--- NOTE | 2021-06-15 18:27 | PC.NURSE ---
patient refused most of AM po meds, awared.
--- NOTE | 2021-06-15 18:45 | PC.NURSE ---
right forearm warm to touch, swollen, very tender.
[2021-06-15] MEDS: ipratropium-albuterol 3 mL Neb INHALATION (20:53)
[2021-06-15] MEDS: sodium chloride 0.9% 1,000 ML 50 ML IV (21:38)
[2021-06-16] VITALS (9 sets, daily range): BP systolic 109–167; BP diastolic 71–86; PULSE 59–75; RESP 14–18; TEMP 36.6–36.9; O2SAT 90–95
[2021-06-16] MEDS: piperacillin-tazobactam 3.375 GM in sodium chloride 0.9% (plus) 50 ML IV ×3 (04:45→20:11)
[2021-06-16] MEDS: HYDROcodone-acetaminophen 5-325 mg Tablet 1 TAB PO ×3 (04:59→20:18)
[2021-06-16 06:18] LABS: Basophils % 0.6 %; Eosinophils # 0.1 10^3/uL (0.0-0.8); Eosinophils % 1.2 %; Hematocrit 35.5 % (37.0-47.0); Hemoglobin 11.1 g/dL (11.5-15.3); Lymphocytes # 1.3 10^3/uL (0.8-4.8); Lymphocytes % 27.3 %; Mean Corpuscular HGB Conc 31.3 g/dL (30.0-36.0); Mean Corpuscular Hemoglobin 28.8 pg (28.0-34.0); Mean Corpuscular Volume 92.2 fl (81-99); Mean Platelet Volume 10.6 fL (7.4-10.4); Monocytes # 0.4 10^3/uL (0.2-0.9); Monocytes % 7.5 %; Neutrophils % 63.2 %; Nucleated Red Blood Cells % 0 %; Platelet Count 256 10^3/cmm (130-400); Red Blood Count 3.85 10^6/uL (4.1-5.3); Red Cell Distribution Width 13.4 % (12.1-15.1); White Blood Count 4.9 10^3/uL (4.0-10.0)
[2021-06-16 07:03] LABS: Alanine Aminotransferase 16 U/L (0-33); Albumin Level 3.5 g/dL (3.5-5.2); Alkaline Phosphatase 104 IU/L (35-105); Anion Gap 13.8 (5-19); Aspartate Amino Transferase 14 U/L (0-32); Blood Urea Nitrogen 7 mg/dL (6-20); Calcium 8.1 mg/dL (8.5-10.5); Carbon Dioxide 25 mmol/L (22-29); Chloride 106 mmol/L (98-107); Creatinine Clr Calc Pharmacy 136.7319; Globulin 2.6 g/dL (1.3-4.6); Glomerular Filtration Rate 106.3 mL/min (90-130); Glucose 86 mg/dL (65-115); Osmolality Calculated 289 mOsm/kg (285-295); Potassium 3.8 mmol/L (3.5-5.1); Sodium 141 mmol/L (136-145); Total Protein 6.1 g/dL (6.6-8.7)
[2021-06-16] MEDS: ondansetron 2 mg/ML SDV 2 mL 4 MG IVP (08:47)
[2021-06-16] MEDS: hyDROXYzine 25 mg Capsule 50 MG PO (08:48)
[2021-06-16] MEDS: predniSONE 10 mg Tablet PO (08:48)
[2021-06-16] MEDS: aspirin 81 mg Chew Tablet PO (08:48)
[2021-06-16] MEDS: sertraline 100 mg Tablet PO (08:48)
[2021-06-16] MEDS: ARIPiprazole 10 mg Tablet PO (08:48)
[2021-06-16] MEDS: gabapentin 100 mg Capsule PO (08:48)
[2021-06-16] MEDS: cyclobenzaprine 10 mg Tablet PO (08:48)
[2021-06-16] MEDS: ipratropium-albuterol 3 mL Neb INHALATION ×2 (10:01→20:13)
[2021-06-16] MEDS: pantoprazole 40 mg SDV IVP ×2 (10:57→23:57)
[2021-06-16] MEDS: sodium chloride 0.9% 1,000 ML 100 ML IV (10:58)
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
[2021-06-16] MEDS: sucralfate 1 gm/10 mL Oral Liq UDC PO ×2 (16:50→20:12)
[2021-06-16 19:52] LABS: Quest SARS-CoV-2 RNA NOT DETECTED (NOT DETECTED)
[2021-06-16] MEDS: enoxaparin 40 mg/0.4 mL Syringe SUBCUT (22:27)
[2021-06-16] MEDS: trazodone 150 mg Tablet 300 MG PO (22:27)
[2021-06-16] MEDS: prazosin 1 mg Capsule PO (22:27)
[2021-06-16] MEDS: amlodipine 10 mg Tablet PO (22:27)
[2021-06-17 04:00] VITALS: BP 115/71; PULSE 58; RESP 18; TEMP 36.5; O2SAT 91
[2021-06-17 05:51] LABS: Basophils % 0.4 %; Eosinophils # 0.1 10^3/uL (0.0-0.8); Eosinophils % 1.1 %; Hematocrit 34.2 % (37.0-47.0); Hemoglobin 10.7 g/dL (11.5-15.3); Lymphocytes # 1.6 10^3/uL (0.8-4.8); Mean Corpuscular HGB Conc 31.3 g/dL (30.0-36.0); Mean Corpuscular Hemoglobin 29.2 pg (28.0-34.0); Mean Corpuscular Volume 93.2 fl (81-99); Mean Platelet Volume 10.9 fL (7.4-10.4); Monocytes # 0.3 10^3/uL (0.2-0.9); Monocytes % 6.9 %; Neutrophils # 2.72 10^3/uL (1.8-7.7); Neutrophils % 57.2 %; Nucleated Red Blood Cells % 0 %; Platelet Count 231 10^3/cmm (130-400); Red Blood Count 3.67 10^6/uL (4.1-5.3); Red Cell Distribution Width 13.4 % (12.1-15.1); White Blood Count 4.8 10^3/uL (4.0-10.0)
[2021-06-17] MEDS: piperacillin-tazobactam 3.375 GM in sodium chloride 0.9% (plus) 50 ML IV (05:52)
[2021-06-17] MEDS: sodium chloride 0.9% 1,000 ML 100 ML IV (05:53)
[2021-06-17] MEDS: HYDROcodone-acetaminophen 5-325 mg Tablet 1 TAB PO ×2 (05:56→12:07)
[2021-06-17] MEDS: sucralfate 1 gm/10 mL Oral Liq UDC PO ×2 (05:59→12:04)
[2021-06-17 06:16] LABS: Alanine Aminotransferase 16 U/L (0-33); Albumin Level 3.3 g/dL (3.5-5.2); Alkaline Phosphatase 101 IU/L (35-105); Anion Gap 10.5 (5-19); Aspartate Amino Transferase 15 U/L (0-32); Blood Urea Nitrogen 5 mg/dL (6-20); Calcium 8.4 mg/dL (8.5-10.5); Carbon Dioxide 28 mmol/L (22-29); Chloride 104 mmol/L (98-107); Globulin 2.8 g/dL (1.3-4.6); Glomerular Filtration Rate 131.1 mL/min (90-130); Glucose 78 mg/dL (65-115); Osmolality Calculated 284 mOsm/kg (285-295); Potassium 3.5 mmol/L (3.5-5.1); Sodium 139 mmol/L (136-145); Total Bilirubin 0.9 mg/dL (0.15-1.2); Total Protein 6.1 g/dL (6.6-8.7)
[2021-06-17 06:30] LABS: Slide Review Slide Review Perform
[2021-06-17 07:20] VITALS: BP 153/88; PULSE 72; RESP 16; TEMP 36.4; O2SAT 97
[2021-06-17 09:16] VITALS: PULSE 91; RESP 17; O2SAT 91
[2021-06-17] MEDS: ipratropium-albuterol 3 mL Neb INHALATION (09:16)
[2021-06-17 09:21] VITALS: PULSE 92
[2021-06-17] MEDS: ARIPiprazole 10 mg Tablet PO (09:53)
[2021-06-17] MEDS: sertraline 100 mg Tablet PO (09:53)
[2021-06-17] MEDS: aspirin 81 mg Chew Tablet PO (09:54)
[2021-06-17] MEDS: predniSONE 10 mg Tablet PO (09:54)
[2021-06-17] MEDS: cyclobenzaprine 10 mg Tablet PO (10:00)
[2021-06-17 11:15] VITALS: BP 155/82; PULSE 62; RESP 16; TEMP 36.5; O2SAT 91
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
[2021-06-17] MEDS: pantoprazole 40 mg SDV IVP (12:14)
--- NOTE | 2021-06-17 14:06 | PC.NURSE ---
Discharge Note Patient discharged to home via private vehicle accompanied by roommate. Discharge instructions reviewed with patient. Prescriptions were sent to pharmacy. Belongings sent home with patient, IV removed from patient, tolerated well. .
[2021-06-17 14:09] VITALS: BP 155/82; PULSE 62; RESP 16; TEMP 36.5; O2SAT 91
== END 2021-06-17 13:40 | disposition home or self-care (01) | DRG 392 ==
LOC: ER 23:00 → ER IP 23:13 → MEDSURG 06-15 18:35
PROVIDERS: Nurse Practitioner Family; Admitting Provider Student in an Organized Health Care Education/Training Program; Emergency Provider Family Medicine; PCP Family Medicine; Visit Provider Student in an Organized Health Care Education/Training Program
DX: K57.32 Diverticulitis of large intestine without perforation or abscess without bleeding (principal); J44.9 Chronic obstructive pulmonary disease, unspecified; I10 Essential (primary) hypertension; W50.3XXA Accidental bite by another person, initial encounter; M79.89 Other specified soft tissue disorders; M19.90 Unspecified osteoarthritis, unspecified site; Z20.822 Contact with and (suspected) exposure to COVID-19; Z79.82 Long term (current) use of aspirin; Z90.49 Acquired absence of other specified parts of digestive tract; Z90.710 Acquired absence of both cervix and uterus; Z87.59 Personal history of other complications of pregnancy, childbirth and the puerperium; Z82.3 Family history of stroke; Z80.9 Family history of malignant neoplasm, unspecified; Z82.49 Family history of ischemic heart disease and other diseases of the circulatory system; Z83.3 Family history of diabetes mellitus; Z84.89 Family history of other specified conditions
CPT/HCPCS: 36415; 74022; 74177; 76882; 80053; 81003; 83690; 85025; 87040; 87635; 87641; 94640; 96372; 96374; 96375; 99285; C9113; J1650; J2270; J2405; J2543; J3490; J7030; J7512; Q9967

== ENCOUNTER → 2021-07-16 10:49 | Outpatient (BNVA) | payer MEDICAID, SELFPAY | PROVIDERS: PCP Family Medicine; Visit Provider Nurse Practitioner Psychiatric/Mental Health | DX: F43.12 Post-traumatic stress disorder, chronic (principal); F33.2 Major depressive disorder, recurrent severe without psychotic features; F41.0 Panic disorder [episodic paroxysmal anxiety] | CPT/HCPCS: 99215 ==

== ENCOUNTER 2021-07-19 07:29 | Outpatient (CLI) | payer MEDICAID, SELFPAY ==
--- NOTE | 2021-07-19 08:00 | MR_ITS ---
WS: [id number] MRI RIGHT SHOULDER HISTORY: M54.2 - Cervicalgia COMPARISON: 06/08/2021 radiographs TECHNIQUE: Multiplanar sequences of the shoulder joint are submitted. Mild AC joint hypertrophy. Thickening of the joint capsule with increased T2 signal through the AC li gament. No significant amount of fluid in the bursa. Mild encroachment upon the supraspinatus tendon and muscle by the AC joint. No os acromion. Biceps tendon is in normal position. No muscle atrophy or edema. No biceps tendon tear is identified. There is a small amount of fluid in the subscapularis recess. No fractures or marrow edema. Small subchondral cysts in the humeral head. Humeral head is normally seated at the glenoid. No definite labral tears are identified. The study is mildly suboptimal due to motion artifact. MR/MR shoulder RT wo con* [id number] IMPRESSION: 1. Mild AC joint osteoarthritis with mild encroachment upon the supraspinatus muscle and tendon. 2. No rotator cuff tear.
== END 2021-07-19 07:30 | disposition home or self-care (01) ==
PROVIDERS: PCP Family Medicine; Visit Provider Orthopaedic Surgery
DX: M54.2 Cervicalgia (principal); M19.011 Primary osteoarthritis, right shoulder
CPT/HCPCS: 73221

== ENCOUNTER 2021-07-19 07:30 | Outpatient (CLI) | payer MEDICAID, SELFPAY ==
--- NOTE | 2021-07-19 07:32 | MR_ITS ---
WS: [id number] MRI LEFT FOOT without CONTRAST. COMPARISON: Radiographs 05/30/2021 Multiplanar, multisequence imaging is performed without contrast. Minimal marrow edema in the posterior talus. No fracture. Calcaneus is normal. No signal abnormalitie s or fractures within the mid and tarsals or tarsal bones. There is normal alignment at the tarsometa tarsal junction. Ligaments and tendons throughout the foot are normal. Achilles tendon is normal. Sma ll calcaneal spur measures 5 mm. Very minimal hallux valgus deformity. Normal sinus Tarsi. MR/MR foot LT wo con* [id number] IMPRESSION: 1. No evidence for healed or healing stress fracture within the metatarsals. 2. Tendons and ligaments are normal signal. 3. Very small amount of marrow edema in the posterior talus which is probably degenerative in etiology. 4. No joint effusion.
== END 2021-07-19 07:31 | disposition home or self-care (01) ==
PROVIDERS: PCP Family Medicine; Visit Provider Podiatrist Foot & Ankle Surgery
DX: M84.376A Stress fracture, unspecified foot, initial encounter for fracture (principal); X58.XXXA Exposure to other specified factors, initial encounter
CPT/HCPCS: 73718

== ENCOUNTER 2021-07-26 09:06 | Outpatient (CLI) | payer MEDICAID, SELFPAY | END 2021-07-26 09:07 | disposition home or self-care (01) | LOC: SPT 09:07 | PROVIDERS: PCP Family Medicine; Visit Provider Podiatrist Foot & Ankle Surgery | DX: Z46.89 Encounter for fitting and adjustment of other specified devices (principal); M79.672 Pain in left foot; M72.2 Plantar fascial fibromatosis; M76.72 Peroneal tendinitis, left leg | CPT/HCPCS: 97760; L1902 ==

== ENCOUNTER → 2021-08-13 08:20 | Outpatient (BNVA) | payer MEDICAID, SELFPAY | PROVIDERS: PCP Family Medicine; Visit Provider Nurse Practitioner Psychiatric/Mental Health | DX: F33.2 Major depressive disorder, recurrent severe without psychotic features; F41.0 Panic disorder [episodic paroxysmal anxiety]; Z03.89 Encounter for observation for other suspected diseases and conditions ruled out; F41.1 Generalized anxiety disorder; F43.12 Post-traumatic stress disorder, chronic | CPT/HCPCS: 99214 ==

== ENCOUNTER → 2021-08-14 12:22 | Outpatient (BNVA) | payer MEDICAID, SELFPAY | PROVIDERS: PCP Family Medicine; Visit Provider Counselor Mental Health | DX: Z03.89 Encounter for observation for other suspected diseases and conditions ruled out (principal) | CPT/HCPCS: 90834; 80306 ==

== ENCOUNTER 2021-08-20 14:46 | Outpatient (CLI) | payer MEDICAID, SELFPAY | END 2021-08-20 14:47 | disposition home or self-care (01) | LOC: SPT 14:47 | PROVIDERS: PCP Family Medicine; Visit Provider Podiatrist Foot & Ankle Surgery | DX: Z46.89 Encounter for fitting and adjustment of other specified devices (principal); M72.2 Plantar fascial fibromatosis | CPT/HCPCS: 97760; L4397 ==

== ENCOUNTER → 2021-08-22 08:04 | Outpatient (BNVA) | payer MEDICAID, SELFPAY | PROVIDERS: PCP Family Medicine; Referring Provider Orthopaedic Surgery; Visit Provider Specialist | DX: M25.511 Pain in right shoulder (principal); R20.0 Anesthesia of skin; R20.2 Paresthesia of skin; M79.7 Fibromyalgia; G43.711 Chronic migraine without aura, intractable, with status migrainosus | CPT/HCPCS: 20550; 20552; 95886; 95910; 99214; J1030; J3490 ==

== ENCOUNTER → 2021-09-04 08:51 | Outpatient (BNVA) | payer MEDICAID, SELFPAY | PROVIDERS: PCP Family Medicine; Visit Provider Counselor Mental Health | DX: F41.0 Panic disorder [episodic paroxysmal anxiety] (principal); F33.2 Major depressive disorder, recurrent severe without psychotic features; F43.12 Post-traumatic stress disorder, chronic | CPT/HCPCS: 90834 ==

== ENCOUNTER → 2021-09-17 13:26 | Outpatient (BNVA) | payer MEDICAID, SELFPAY | PROVIDERS: PCP Family Medicine; Visit Provider Nurse Practitioner Psychiatric/Mental Health | DX: F41.0 Panic disorder [episodic paroxysmal anxiety] (principal); F33.2 Major depressive disorder, recurrent severe without psychotic features; F43.12 Post-traumatic stress disorder, chronic | CPT/HCPCS: 99214 ==

== ENCOUNTER 2021-09-30 15:55 | Emergency (ER) | payer MEDICAID, SELFPAY ==
[2021-09-30 17:03] VITALS: BP 176/91; PULSE 96; RESP 20; TEMP 36.4; O2SAT 97; BMI 42.2
--- NOTE | 2021-09-30 17:06 | ECG_ITS ---
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 Measurements Intervals [place] Rate: 101 P: 52 RI: 160 QRS: 17 QRSD: 87 T: 22 QT: 341 QTc: 442 Interpretive Statements SINUS TACHYCARDIA POSSIBLE LEFT ATRIAL ENLARGEMENT [-0.1mV P-WAVE IN V1/V2] ABNORMAL RHYTHM ECG INTERPRETATION BASED ON A DEFAULT AGE OF 40 YEARS Compared to ECG 04/17/2021 18:57:54 Sinus rhythm no longer present Electronically Signed On 09-30-2021 20:12:39 RESEARCH AND DEVELOPMENT MANAGER by Tracy Bo M.D. [id number] [email or web address]
[2021-09-30 17:24] LABS: Basophils % 0.4 %; Eosinophils # 0.1 10^3/uL (0.0-0.8); Eosinophils % 1.2 %; Hematocrit 40.2 % (37.0-47.0); Hemoglobin 12.4 g/dL (11.5-15.3); Lymphocytes # 2.1 10^3/uL (0.8-4.8); Lymphocytes % 18.5 %; Mean Corpuscular HGB Conc 30.8 g/dL (30.0-36.0); Mean Corpuscular Hemoglobin 28.2 pg (28.0-34.0); Mean Corpuscular Volume 91.6 fl (81-99); Mean Platelet Volume 9.8 fL (7.4-10.4); Monocytes # 0.9 10^3/uL (0.2-0.9); Monocytes % 8.1 %; Neutrophils # 7.89 10^3/uL (1.8-7.7); Neutrophils % 71.2 %; Nucleated Red Blood Cells % 0.2 %; Platelet Count 329 10^3/cmm (130-400); Red Blood Count 4.39 10^6/uL (4.1-5.3); White Blood Count 11.1 10^3/uL (4.0-10.0)
[2021-09-30 17:46] LABS: Troponin(5th) Baseline 9 ng/L (0-10)
[2021-09-30 17:48] LABS: Alanine Aminotransferase 27 U/L (0-33); Albumin Level 4.1 g/dL (3.5-5.2); Alkaline Phosphatase 109 IU/L (35-105); Aspartate Amino Transferase 16 U/L (0-32); Blood Urea Nitrogen 15 mg/dL (6-20); Calcium 8.5 mg/dL (8.5-10.5); Carbon Dioxide 26 mmol/L (22-29); Chloride 98 mmol/L (98-107); Globulin 2.3 g/dL (1.3-4.6); Glomerular Filtration Rate 106.3 mL/min (90-130); Glucose 101 mg/dL (65-115); Osmolality Calculated 287 mOsm/kg (285-295); Sodium 138 mmol/L (136-145); Total Bilirubin 0.4 mg/dL (0.15-1.2); Total Protein 6.4 g/dL (6.6-8.7)
== END 2021-09-30 19:53 ==
PROVIDERS: Emergency Medicine; Emergency Provider Family Medicine; PCP Family Medicine
DX: Z53.21 Procedure and treatment not carried out due to patient leaving prior to being seen by health care provider (principal)
CPT/HCPCS: 36415; 80053; 84484; 85025; 93005

== ENCOUNTER → 2021-10-01 07:49 | Outpatient (BNVA) | payer MEDICAID, SELFPAY | PROVIDERS: PCP Family Medicine; Visit Provider Nurse Practitioner Psychiatric/Mental Health | DX: F41.0 Panic disorder [episodic paroxysmal anxiety] (principal); F33.2 Major depressive disorder, recurrent severe without psychotic features; F43.12 Post-traumatic stress disorder, chronic | CPT/HCPCS: 99213 ==

== ENCOUNTER 2021-10-28 21:34 | Emergency (ER) | payer MEDICAID, SELFPAY ==
[2021-10-28 21:38] VITALS: BP 167/85; PULSE 100; RESP 17; TEMP 36.5; O2SAT 96; BMI 42.2
--- NOTE | 2021-10-28 22:14 | XRR_ITS ---
PROCEDURE INFORMATION: Exam: XR Chest Exam date and time: 10/28/2021 10:14 PM Age: 50 years old Clinical indication: Chest wall pain; Additional info: Chest pain TECHNIQUE: Imaging protocol: XR of the chest. Views: 1 view. COMPARISON: CR XR chest 1V [id number] 06/08/2021 7:27 AM FINDINGS: Lungs: No CHF/pulmonary edema. Visible lungs appear essentially clear. Pleural spaces: No visible pneumothorax. No definite pleural fluid. Heart/Mediastinum: Heart size is within normal limits. Bones/joints: No significant acute finding. XR/XR chest 1V portable [id number] IMPRESSION: 1. No definite CHF or pneumonia. 2. Other findings discussed above.
--- NOTE | 2021-10-28 22:14 | ECG_ITS ---
[facility] Test Date: 2021-10-28 Pat Name: Nani Pryor Department: Room: Gender: Female Pc Analyst: : 1970 Requested By: Omaira Adames Order Number: [id number] Jaclyn MD: Lisandra Honeycutt M.D. Measurements Intervals [place] Rate: 89 P: 43 MI: 182 QRS: 12 QRSD: 94 T: 6 QT: 375 QTc: 457 Interpretive Statements SINUS RHYTHM Compared to ECG 09/30/2021 16:56:25 Sinus tachycardia no longer present Electronically Signed On 10-30-2021 5:05:03 BUSINESS EDUCATION INSTRUCTOR by Lisandra Honeycutt M.D. [id number]
--- NOTE | 2021-10-28 22:18 | ED_ITS ---
Documented by User: FARZANA Villa 10/29/21 09:00 HPI - General Adult General: Chief complaint: General Medical Stated complaint: Throat Swelling SOB Time Seen by Provider: 10/28/21 21:49 Source: patient Mode of arrival: ambulatory Limitations: no limitations History of Present Illness: HPI narrative: Patient is a 50-year-old female who presents to ED today with a plethora of medical complaints. Patient tells me she is having issues with her throat swelling up . She states this is intermittent. She has had this issue previously and had an EGD which showed esophagitis and apparently also had her esophagus stretched . She states she has an appointment with GI in [place] for repeat EGD for further evaluation. This symptom has been present intermittently for several months. She has a complaint of a right-sided migraine. Patient tells me she suffers from chronic migraines that usually affect the right side of her head. She has seen Dr. Calabrese for these. She complains of right-sided neck pain and right shoulder pain. Patient has been seen by orthopedics several times (has had MRI) as well as neurology for nerve conduction studies for this particular complaint. She complains of chest pain or shortness of breath-she states this is intermittent for a long time . She complains of abdominal pain and some diarrhea. Patient has not been running fevers. I discussed with patient that from the emergency department I am going to have limited resources to do much for her chronic complaints especially the ones where she already has appropriate outpatient specialty follow-up. Patient states her main complaint today is her abdominal pain that she states started 3 days ago. Associated symptoms: Reports chest pain, dyspnea and headache(s); Deny confusion, malaise, nausea, rash, palpitations, syncope or vomiting Review of Systems Const: Denies: fever(s), chills, body aches, fatigue or malaise Card: Reports: chest pain; Denies: palpitations, irregular heart rhythm, edema, swelling of feet/ankles, lightheadedness, syncope or pre-syncope Resp: Reports: dyspnea; Denies: productive cough, non-productive cough, wheezing, pain on inspiration, hemoptysis or chest congestion GI: Reports: abdominal pain and diarrhea; Denies: nausea, vomiting, rectal pain, rectal swelling, rectal itching, hemato chezia or melena : Denies: flank pain, dysuria or hematuria Musc: Reports: neck pain (chronic) and joint pain (chronic R shoulder pain) Skin/Breast: Denies: rash Neuro: Reports: headache(s); Denies: lack of coordination, difficulty walking, frequent falls, dizziness, vertigo, confusion, behavioral changes, Slurred speech present, difficulty communicating thoughts or seizure-like activity PFS ED PFSH: Medical History Abnormal reflex COPD (chronic obstructive pulmonary disease) HTN (hypertension) Neck pain Psychiatric care Psychiatric care Surgical History History of cholecystectomy Hx of section Hx of hysterectomy Family History Family/Other Cancer Diabetes Father Diabetes Hyperlipidemia Hypertension Stroke Mother Hypertension Stroke CAD (coronary artery disease) Rheumatoid arthritis Social History Second hand smoke exposure: Yes Alcohol intake: never History of recent travel: No Physical Exam Const: COMMON NORMALS: no acute distress, patient oriented x3, no limitations and alert GENERAL APPEARANCE: cooperative NUTRITIONAL APPEARANCE: obese morbidly obese ORIENTATION/CONSCIOUSNESS: Yes awake, Yes oriented to person, Yes oriented to place and Yes oriented to time HENMT: COMMON NORMALS: normocephalic and atraumatic HEAD & SCALP: normal to inspection, normocephalic and atraumatic MOUTH: Normal oral and palatal mucosa present, lip normal and tongue normal THROAT: posterior oropharynx normal, tonsils normal and uvula midline Resp: COMMON NORMALS: normal respiratory effort and clear to auscultation bilaterally AUSCULTATION: clear to auscultation bilaterally Cardio: COMMON NORMALS: regular rate and regular rhythm RATE: regular rate RHYTHM: regular rhythm GI: COMMON NORMALS: Normal to inspection, nondistended, normoactive bowel sounds present, Soft to palpation, No hepatosplenomegaly present and no masses INSPECTION: Yes normal to inspection PALPATION: Yes Soft to palpation, Yes Tenderness to palpation present (GI) (diffusely tender to lower abdomen) and Yes No hepatosplenomegaly present OTHER: non-surgical exam; no guarding or rigidity : COMMON NORMALS: Yes no CVA tenderness BLADDER/KIDNEY EXAM: Yes no CVA tenderness Back/Pelvis: COMMON NORMALS: no CVA tenderness Extremity: GENERAL: Yes normal exam except as noted RIGHT UPPER EXTREMITY: Yes shoulder joint Right shoulder: Yes Right shoulder joint ROM exam (limited), Yes Right shoulder joint neurovascular exam (normal) and Yes Right shoulder joint other findings (TTP) Neuro: LEIGH ANN COMA SCALE: document GCS findings Osmond coma scale eye opening: Spontaneous Osmond coma scale verbal response: Orientated Leigh Ann coma scale motor response: Obey commands Leigh Ann coma scale total score: 15 COMMON NORMALS: patient oriented x3, CN's II-XII intact bilaterally, moves all extremities, no focal motor deficits and no sensory deficits noted SENSORIUM/ORIENTATION: Yes alert, Yes oriented to person, Yes oriented to place and Yes oriented to time Skin: COMMON NORMALS: no rashes or lesions noted GENERAL SKIN EXAM: no rashes or lesions noted Course Vital Signs: Vital signs: Vital Signs Temperature 97.7 F 10/28/21 21:38 Pulse Rate 75 10/29/21 00:16 Respiratory Rate 18 10/29/21 00:16 Blood Pressure 142/81 10/29/21 00:16 Pulse Oximetry 95 10/29/21 00:16 MDM - General Adult MDM Narrative: Medical decision making narrative: Patient physically appears in no acute distress. Her vital signs are normal. Patient is here with a lot of chronic complaints-most of which already have appropriate outpatient specialty involvement. I tried to focus patient's complaints on things that seem to be new. She was worked up for her abdominal and chest pain. Her labs including cardiac work-up were unremarkable. EKG shows no ischemic changes. Baseline troponin negative. CXR is normal. She has a nonsurgical abdominal examination. At this point I would recommend she follow-up with primary care for further evaluation of these complaints. She can continue to follow-up with orthopedics in regards to her right shoulder. Orthopedic note states they were trying to get patient into pain management for further treatment. Return to ED precautions verbally given to patient. Lab Data: Labs: Lab Results 10/28/21 10/28/21 10/28/21 22:28 22:28 22:28 WBC 8.0 10^3/uL 10^3/ uL (4.0-10.0) RBC 4.61 10^6/uL 10^6 /uL (4.1-5.3) Hgb 13.0 g/dL g/dL (11.5-15.3) Hct 41.8 % % (37.0-47.0) MCV 90.7 fl fl (81-99) MCH 28.2 pg pg (28.0-34.0) MCHC 31.1 g/dL g/dL (30.0-36.0) RDW 14.3 % % (12.1-15.1) Plt Count 350 10^3/cmm 10^3 /cmm (130-400) MPV 9.7 fL fL (7.4-10.4) Neut % (Auto) 65.5 % % Lymph % (Auto) 24.3 % % Whiteside % (Auto) 7.9 % % Eos % (Auto) 1.5 % % Baso % (Auto) 0.5 % % Neut # (Auto) 5.21 10^3/uL 10^3 /uL (1.8-7.7) Lymph # (Auto) 1.9 10^3/uL 10^3/ uL (0.8-4.8) Whiteside # (Auto) 0.6 10^3/uL 10^3/ uL (0.2-0.9) Eos # (Auto) 0.1 10^3/uL 10^3/ uL (0.0-0.8) Baso # (Auto) 0.0 10^3/uL 10^3/ uL (0.0-0.1) Nucleated RBC % (a uto) 0 % % Nucleated RBCs # 0.0 /100WBC /100W BC Sodium 137 mmol/L mmol/L (136-145) Potassium 3.4 mmol/L L mmol /L (3.5-5.1) Chloride 98 mmol/L mmol/L (98-107) Carbon Dioxide 27 mmol/L mmol/L (22-29) Anion Gap 15.4 (5-19) BUN 7 mg/dL mg/dL (6-20) Creatinine 0.5 mg/dL mg/dL (0.5-0.9) GFR Calculation 131.1 mL/min H mL /min (90-130) Glucose 105 mg/dL mg/dL (65-115) Calculated Osmolal ity 282 mOsm/kg L mOs m/kg (285-295) Calcium 8.6 mg/dL mg/dL (8.5-10.5) Total Bilirubin 0.5 mg/dL mg/dL (0.15-1.2) AST 11 U/L U/L (0-32) ALT 15 U/L U/L (0-33) Alkaline Phosphata se 119 IU/L H IU/L (35-105) Troponin T Baselin e 7 ng/L ng/L (0-10) Total Protein 6.9 g/dL g/dL (6.6-8.7) Albumin 4.1 g/dL g/dL (3.5-5.2) Globulin 2.8 g/dL g/dL (1.3-4.6) Lipase 69 U/L H U/L (13-60) Urine Color Urine Appearance Urine pH Ur Specific Gravit y Urine Protein Urine Glucose (UA) Urine Ketones Urine Blood Urine Nitrate Urine Bilirubin Urine Urobilinogen Ur Leukocyte Radha ase Urine RBC Urine WBC Ur Squamous Epith Cells Amorphous Sediment Urine Bacteria 10/28/21 22:28 WBC RBC Hgb Hct MCV MCH MCHC RDW Plt Count MPV Neut % (Auto) Lymph % (Auto) Whiteside % (Auto) Eos % (Auto) Baso % (Auto) Neut # (Auto) Lymph # (Auto) Whiteside # (Auto) Eos # (Auto) Baso # (Auto) Nucleated RBC % (a uto) Nucleated RBCs # Sodium Potassium Chloride Carbon Dioxide Anion Gap BUN Creatinine GFR Calculation Glucose Calculated Osmolal ity Calcium Total Bilirubin AST ALT Alkaline Phosphata se Troponin T Baselin e Total Protein Albumin Globulin Lipase Urine Color Yellow (Yellow) Urine Appearance Clear (CLEAR) Urine pH 5 (5-7) Ur Specific Gravit y 1.005 (1.005-1.030) Urine Protein Neg (Negative) Urine Glucose (UA) Norm (Normal) Urine Ketones Negative (Negative) Urine Blood 2+ H (Negative) Urine Nitrate Negative (Negative) Urine Bilirubin Neg (Negative) Urine Urobilinogen Norm mg/dL mg/dL (Negative) Ur Leukocyte Radha ase Negative (Negative) Urine RBC 0-4 /hpf H /hpf (0-2) Urine WBC 0-4 /hpf H /hpf (0-5) Ur Squamous Epith Cells 0-4 /hpf H /hpf (0-5) Amorphous Sediment Not Reportable Urine Bacteria Trace /hpf /hpf (NONE) Imaging Data^: CXR: Radiologist's impression: [id number] [place], [place] [address]IXuf ReportSigned Patient: Brisa Pryor #: [id number]: 1970Acct#:[id number]/Sex: 50 / FADM Date: 10/28/21Loc: ERRoom/Bed:Attending Dr: Ordering Provider/Ordering MD: Omaira Adames Date of Service: 10/28/21 Procedure(s): XR chest 1V portable [id number] Accession Number(s): [id number] Report Number: [id number] PROCEDURE INFORMATION: Exam: XR Chest Exam date and time: 10/28/2021 10:14 PM Age: 50 years old Clinical indication: Chest wall pain; Additional info: Chest pain TECHNIQUE: Imaging protocol: XR of the chest. Views: 1 view. COMPARISON: CR XR chest 1V [id number] 06/08/2021 7:27 AM FINDINGS: Lungs: No CHF/pulmonary edema. Visible lungs appear essentially clear. Pleural spaces: No visible pneumothorax. No definite pleural fluid. Heart/Mediastinum: Heart size is within normal limits. Bones/joints: No significant acute finding. XR/XR chest 1V portable [id number] IMPRESSION: 1. No definite CHF or pneumonia. 2. Other findings discussed above. Dictated By:Brant Hicks MDSigned By:Brant Hicks MDSigned Date/Time:10/28/21 2335DD/ 2214 EKG Data^: EKG 1: EKG interpretation date: 10/28/21 EKG interpretation time: 22:34 Interpretation: Sinus rhythm Rate [address] elevation or depression changes noted Computer generated interpretation: Chest X-Ray 10/28/21 22:14 IMPRESSION: 1. No definite CHF or pneumonia. 2. Other findings discussed above. Discharge Plan Discharge Patient Disposition: Home Clinical Impression: Multiple complaints, Abdominal pain of unknown cause, Normal cardiac enzyme levels Condition: Stable Prescriptions: No Action fluoxetine [Prozac] 40 mg capsule 40 mg PO QAM Qty: 30 RF: 1 (DME) ASO See Rx Instructions .Route .MEDSUPPLY Qty: 1 RF: 0 (DME) night splint to left See Rx Instructions .Route .MEDSUPPLY Qty: 1 RF: 0 prazosin 2 mg capsule 4 mg PO .qhs Qty: 60 RF: 0 clonazepam 0.5 mg tablet 0.5 mg PO BID PRN (Reason: anxiety/panic) Qty: 30 RF: 1 quetiapine 50 mg tablet extended release 24 hr 50 mg PO .q hs Qty: 60 RF: 0 dexamethasone sodium phosphate 4 mg/mL solution 8 mg intra-articular ONCE Qty: 2 RF: 0 bupivacaine (PF) 0.25 % (2.5 mg/mL) solution 4 ml intra-articular ONCE Qty: 4 RF: 0 lidocaine (PF) 10 mg/mL (1 %) solution 10 mg intra-articular ONCE Qty: 4 RF: 0 Ubrelvy 100 mg tablet See Rx Instructions .ROUTE .COMPLEX Qty: 10 RF: 0 diclofenac sodium [Voltaren Arthritis Pain] 1 % gel 4 g topical QID Qty: 100 RF: 0 cholecalciferol (vitamin D3) 1,250 mcg (50,000 unit) capsule 50,000 unit PO .qweek Qty: 14 RF: 0 amlodipine 5 mg Tablet 5 mg PO BEDTIME@2200 RF: 0 hydroxychloroquine 200 mg Tablet 200 mg PO BID@0800,2200 RF: 0 albuterol sulfate 90 mcg/actuation Hfa Aerosol Inhaler 2 puff INHALATION 6XD MDD SEE PHARMACY COMMENT PRN (Reason: Shortness Of Breath) RF: 0 pantoprazole 40 mg Tablet,Delayed Release (Dr/Ec) 40 mg PO DAILY@0800 RF: 0 diphenhydramine HCl [Benadryl] 25 mg Capsule 25 mg PO BEDTIME@2200 PRN (Reason: Insomnia) RF: 0 aspirin 81 mg Tablet,Chewable 81 mg PO DAILY RF: 0 ipratropium-albuterol 0.5 mg-3 mg(2.5 mg base)/3 mL solution for nebulization 3 ml INHALATION DAILY@0800 RF: 0 polyethylene glycol 3350 [Miralax] 17 gram/dose powder 17 g PO DAILY PRN (Reason: Constipation) RF: 0 budesonide-formoterol [Symbicort] 160-4.5 mcg/actuation Hfa Aerosol Inhaler 2 puff INHALATION Q12H RF: 0 Trulance 3 mg tablet 3 mg PO DAILY RF: 0 Decadron 6 mg tablet 6 mg PO DAILY Qty: 7 RF: 0 Celebrex 100 mg capsule 100 mg PO BID Qty: 20 RF: 0 chlorthalidone 50 mg Tablet 25 mg PO DAILY@0800 Qty: 0 RF: 0 losartan 100 mg tablet 50 mg PO DAILY@0800 Qty: 0 RF: 0 Discharge Orders: Discharge ED (Routine); Ordered 10/29/21 Ordered By: Omaira Adames Referrals: Alpesh Garcia MD [Primary Care Provider] - Patient Instructions: Abdominal Pain (ED) Activity Restrictions/Additional Instructions: As we discussed please continue to follow-up with your specialty providers in regards to some of your more chronic conditions. You may return to the emergency department for worsening or severe abdominal pain, fevers, generally feeling unwell/worse, or any other concerns you may have. I hope you begin to feel better soon. Stand Alone Forms: Work/School Release Coding Level of Care Code ED Nurse Coordinator for Chg Fwd Exam Comprehensive Documented by User: Bright Mullins DO 11/06/21 13:52 HPI - General Adult General: Chief complaint: General Medical Stated complaint: Throat Swelling SOB Time Seen by Provider: 10/28/21 21:49 PFSH ED PFSH: Medical History Abnormal reflex COPD (chronic obstructive pulmonary disease) HTN (hypertension) Neck pain Psychiatric care Psychiatric care Surgical History History of cholecystectomy Hx of section Hx of hysterectomy Family History Family/Other Cancer Diabetes Father Diabetes Hyperlipidemia Hypertension Stroke Mother Hypertension Stroke CAD (coronary artery disease) Rheumatoid arthritis Social History Second hand smoke exposure: Yes Alcohol intake: never History of recent travel: No Course Vital Signs: Vital signs: Vital Signs Temperature 97.7 F 10/28/21 21:38 Pulse Rate 75 10/29/21 00:16 Respiratory Rate 18 10/29/21 00:16 Blood Pressure 142/81 10/29/21 00:16 Pulse Oximetry 95 10/29/21 00:16 MDM - General Adult MDM Narrative: Medical decision making narrative: This patient was originally seen by Mrs. Adames?MANOJ Che. I agree with her history, evaluation, and treatment. Lab Data: Labs: Lab Results 10/28/21 10/28/21 10/28/21 22:28 22:28 22:28 WBC 8.0 10^3/uL 10^3/ uL (4.0-10.0) RBC 4.61 10^6/uL 10^6 /uL (4.1-5.3) Hgb 13.0 g/dL g/dL (11.5-15.3) Hct 41.8 % % (37.0-47.0) MCV 90.7 fl fl (81-99) MCH 28.2 pg pg (28.0-34.0) MCHC 31.1 g/dL g/dL (30.0-36.0) RDW 14.3 % % (12.1-15.1) Plt Count 350 10^3/cmm 10^3 /cmm (130-400) MPV 9.7 fL fL (7.4-10.4) Neut % (Auto) 65.5 % % Lymph % (Auto) 24.3 % % Whiteside % (Auto) 7.9 % % Eos % (Auto) 1.5 % % Baso % (Auto) 0.5 % % Neut # (Auto) 5.21 10^3/uL 10^3 /uL (1.8-7.7) Lymph # (Auto) 1.9 10^3/uL 10^3/ uL (0.8-4.8) Whiteside # (Auto) 0.6 10^3/uL 10^3/ uL (0.2-0.9) Eos # (Auto) 0.1 10^3/uL 10^3/ uL (0.0-0.8) Baso # (Auto) 0.0 10^3/uL 10^3/ uL (0.0-0.1) Nucleated RBC % (a uto) 0 % % Nucleated RBCs # 0.0 /100WBC /100W BC Sodium 137 mmol/L mmol/L (136-145) Potassium 3.4 mmol/L L mmol /L (3.5-5.1) Chloride 98 mmol/L mmol/L (98-107) Carbon Dioxide 27 mmol/L mmol/L (22-29) Anion Gap 15.4 (5-19) BUN 7 mg/dL mg/dL (6-20) Creatinine 0.5 mg/dL mg/dL (0.5-0.9) GFR Calculation 131.1 mL/min H mL /min (90-130) Glucose 105 mg/dL mg/dL (65-115) Calculated Osmolal ity 282 mOsm/kg L mOs m/kg (285-295) Calcium 8.6 mg/dL mg/dL (8.5-10.5) Total Bilirubin 0.5 mg/dL mg/dL (0.15-1.2) AST 11 U/L U/L (0-32) ALT 15 U/L U/L (0-33) Alkaline Phosphata se 119 IU/L H IU/L (35-105) Troponin T Baselin e 7 ng/L ng/L (0-10) Total Protein 6.9 g/dL g/dL (6.6-8.7) Albumin 4.1 g/dL g/dL (3.5-5.2) Globulin 2.8 g/dL g/dL (1.3-4.6) Lipase 69 U/L H U/L (13-60) Urine Color Urine Appearance Urine pH Ur Specific Gravit y Urine Protein Urine Glucose (UA) Urine Ketones Urine Blood Urine Nitrate Urine Bilirubin Urine Urobilinogen Ur Leukocyte Radha ase Urine RBC Urine WBC Ur Squamous Epith Cells Amorphous Sediment Urine Bacteria 10/28/21 22:28 WBC RBC Hgb Hct MCV MCH MCHC RDW Plt Count MPV Neut % (Auto) Lymph % (Auto) Whiteside % (Auto) Eos % (Auto) Baso % (Auto) Neut # (Auto) Lymph # (Auto) Whiteside # (Auto) Eos # (Auto) Baso # (Auto) Nucleated RBC % (a uto) Nucleated RBCs # Sodium Potassium Chloride Carbon Dioxide Anion Gap BUN Creatinine GFR Calculation Glucose Calculated Osmolal ity Calcium Total Bilirubin AST ALT Alkaline Phosphata se Troponin T Baselin e Total Protein Albumin Globulin Lipase Urine Color Yellow (Yellow) Urine Appearance Clear (CLEAR) Urine pH 5 (5-7) Ur Specific Gravit y 1.005 (1.005-1.030) Urine Protein Neg (Negative) Urine Glucose (UA) Norm (Normal) Urine Ketones Negative (Negative) Urine Blood 2+ H (Negative) Urine Nitrate Negative (Negative) Urine Bilirubin Neg (Negative) Urine Urobilinogen Norm mg/dL mg/dL (Negative) Ur Leukocyte Radha ase Negative (Negative) Urine RBC 0-4 /hpf H /hpf (0-2) Urine WBC 0-4 /hpf H /hpf (0-5) Ur Squamous Epith Cells 0-4 /hpf H /hpf (0-5) Amorphous Sediment Not Reportable Urine Bacteria Trace /hpf /hpf (NONE) EKG Data^: EKG 1: Computer generated interpretation: Chest X-Ray 10/28/21 22:14 IMPRESSION: 1. No definite CHF or pneumonia. 2. Other findings discussed above. Discharge Plan Discharge Patient Disposition: Home Clinical Impression: Multiple complaints, Abdominal pain of unknown cause, Normal cardiac enzyme levels Condition: Stable Prescriptions: No Action fluoxetine [Prozac] 40 mg capsule 40 mg PO QAM Qty: 30 RF: 1 (DME) ASO See Rx Instructions .Route .MEDSUPPLY Qty: 1 RF: 0 (DME) night splint to left See Rx Instructions .Route .MEDSUPPLY Qty: 1 RF: 0 prazosin 2 mg capsule 4 mg PO .qhs Qty: 60 RF: 0 clonazepam 0.5 mg tablet 0.5 mg PO BID PRN (Reason: anxiety/panic) Qty: 30 RF: 1 quetiapine 50 mg tablet extended release 24 hr 50 mg PO .q hs Qty: 60 RF: 0 dexamethasone sodium phosphate 4 mg/mL solution 8 mg intra-articular ONCE Qty: 2 RF: 0 bupivacaine (PF) 0.25 % (2.5 mg/mL) solution 4 ml intra-articular ONCE Qty: 4 RF: 0 lidocaine (PF) 10 mg/mL (1 %) solution 10 mg intra-articular ONCE Qty: 4 RF: 0 Ubrelvy 100 mg tablet See Rx Instructions .ROUTE .COMPLEX Qty: 10 RF: 0 diclofenac sodium [Voltaren Arthritis Pain] 1 % gel 4 g topical QID Qty: 100 RF: 0 cholecalciferol (vitamin D3) 1,250 mcg (50,000 unit) capsule 50,000 unit PO .qweek Qty: 14 RF: 0 amlodipine 5 mg Tablet 5 mg PO BEDTIME@2200 RF: 0 hydroxychloroquine 200 mg Tablet 200 mg PO BID@0800,2200 RF: 0 albuterol sulfate 90 mcg/actuation Hfa Aerosol Inhaler 2 puff INHALATION 6XD MDD SEE PHARMACY COMMENT PRN (Reason: Shortness Of Breath) RF: 0 pantoprazole 40 mg Tablet,Delayed Release (Dr/Ec) 40 mg PO DAILY@0800 RF: 0 diphenhydramine HCl [Benadryl] 25 mg Capsule 25 mg PO BEDTIME@2200 PRN (Reason: Insomnia) RF: 0 aspirin 81 mg Tablet,Chewable 81 mg PO DAILY RF: 0 ipratropium-albuterol 0.5 mg-3 mg(2.5 mg base)/3 mL solution for nebulization 3 ml INHALATION DAILY@0800 RF: 0 polyethylene glycol 3350 [Miralax] 17 gram/dose powder 17 g PO DAILY PRN (Reason: Constipation) RF: 0 budesonide-formoterol [Symbicort] 160-4.5 mcg/actuation Hfa Aerosol Inhaler 2 puff INHALATION Q12H RF: 0 Trulance 3 mg tablet 3 mg PO DAILY RF: 0 Decadron 6 mg tablet 6 mg PO DAILY Qty: 7 RF: 0 Celebrex 100 mg capsule 100 mg PO BID Qty: 20 RF: 0 chlorthalidone 50 mg Tablet 25 mg PO DAILY@0800 Qty: 0 RF: 0 losartan 100 mg tablet 50 mg PO DAILY@0800 Qty: 0 RF: 0 Discharge Orders: Discharge ED (Routine); Ordered 10/29/21 Ordered By: Omaira Adames Referrals: Alpesh Garcia MD [Primary Care Provider] - Patient Instructions: Abdominal Pain (ED) Activity Restrictions/Additional Instructions: As we discussed please continue to follow-up with your specialty providers in regards to some of your more chronic conditions. You may return to the emergency department for worsening or severe abdominal pain, fevers, generally feeling unwell/worse, or any other concerns you may have. I hope you begin to feel better soon. Stand Alone Forms: Work/School Release Coding Level of Care Code ED Nurse Coordinator for Elíasg Fwd Exam Comprehensive
[2021-10-28 22:38] VITALS: BP 174/92; PULSE 75; RESP 18; O2SAT 98
[2021-10-28 22:44] LABS: Basophils % 0.5 %; Eosinophils # 0.1 10^3/uL (0.0-0.8); Eosinophils % 1.5 %; Hematocrit 41.8 % (37.0-47.0); Lymphocytes # 1.9 10^3/uL (0.8-4.8); Lymphocytes % 24.3 %; Mean Corpuscular HGB Conc 31.1 g/dL (30.0-36.0); Mean Corpuscular Hemoglobin 28.2 pg (28.0-34.0); Mean Corpuscular Volume 90.7 fl (81-99); Mean Platelet Volume 9.7 fL (7.4-10.4); Monocytes # 0.6 10^3/uL (0.2-0.9); Monocytes % 7.9 %; Neutrophils # 5.21 10^3/uL (1.8-7.7); Neutrophils % 65.5 %; Nucleated Red Blood Cells % 0 %; Platelet Count 350 10^3/cmm (130-400); Red Blood Count 4.61 10^6/uL (4.1-5.3); Red Cell Distribution Width 14.3 % (12.1-15.1)
[2021-10-28 23:01] VITALS: BP 157/89; PULSE 79; RESP 18; O2SAT 94
[2021-10-28 23:06] LABS: Troponin(5th) Baseline 7 ng/L (0-10)
[2021-10-28 23:07] LABS: Alanine Aminotransferase 15 U/L (0-33); Albumin Level 4.1 g/dL (3.5-5.2); Alkaline Phosphatase 119 IU/L (35-105); Anion Gap 15.4 (5-19); Aspartate Amino Transferase 11 U/L (0-32); Blood Urea Nitrogen 7 mg/dL (6-20); Calcium 8.6 mg/dL (8.5-10.5); Carbon Dioxide 27 mmol/L (22-29); Chloride 98 mmol/L (98-107); Globulin 2.8 g/dL (1.3-4.6); Glomerular Filtration Rate 131.1 mL/min (90-130); Glucose 105 mg/dL (65-115); Lipase 69 U/L (13-60); Osmolality Calculated 282 mOsm/kg (285-295); Potassium 3.4 mmol/L (3.5-5.1); Sodium 137 mmol/L (136-145); Total Bilirubin 0.5 mg/dL (0.15-1.2); Total Protein 6.9 g/dL (6.6-8.7)
[2021-10-29 00:02] LABS: Add Urine Microscopic? YES; Bilirubin Urine Neg (Negative); Blood Urine 2+ (Negative); Glucose Urine UA Norm (Normal); Ketones Urine Negative (Negative); Leukocyte Esterase Urine Negative (Negative); Nitrate Urine Negative (Negative); Protein Urine Neg (Negative); Specific Gravity, Urine 1.005 (1.005-1.030); Urine Appearance Clear (CLEAR); Urine Color Yellow (Yellow); Urobilinogen Urine Norm (Negative); pH Urine 5 (5-7)
[2021-10-29 00:06] LABS: Add Urine Culture? No; Bacteria Urine TRACE /hpf; RBC Urine 0-4 /hpf (0-2); Squamous Epithelial Cell Urine 0-4 /hpf (0-5); WBC Urine 0-4 /hpf (0-5)
--- NOTE | 2021-10-29 00:14 | ECG_ITS ---
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 Measurements Intervals [place] Rate: 90 P: 13 [place]: 170 QRS: 39 QRSD: 97 T: 47 QT: 386 QTc: 473 Interpretive Statements SINUS RHYTHM Compared to ECG 10/28/2021 22:34:04 No significant changes Electronically Signed On 10-30-2021 5:18:27 PHP LAMP DEVELOPER by Lisandra Honeycutt M.D. [id number]
[2021-10-29 00:16] VITALS: BP 142/81; PULSE 75; RESP 18; O2SAT 95
== END 2021-10-29 00:19 | disposition home or self-care (01) ==
PROVIDERS: Emergency Provider Physician Assistant; PCP Family Medicine
DX: R10.9 Unspecified abdominal pain (principal); Z79.82 Long term (current) use of aspirin; J44.9 Chronic obstructive pulmonary disease, unspecified; I10 Essential (primary) hypertension; Z77.22 Contact with and (suspected) exposure to environmental tobacco smoke (acute) (chronic)
CPT/HCPCS: 71045; 80053; 81001; 81003; 83690; 84484; 85025; 93005; 99283

== ENCOUNTER → 2021-11-02 13:25 | Outpatient (BNVA) | payer MEDICAID, SELFPAY | PROVIDERS: PCP Family Medicine; Visit Provider Counselor Mental Health | DX: F41.0 Panic disorder [episodic paroxysmal anxiety] (principal); F33.2 Major depressive disorder, recurrent severe without psychotic features; F43.12 Post-traumatic stress disorder, chronic | CPT/HCPCS: 90832 ==

== ENCOUNTER 2021-11-06 09:14 | Emergency (ER) | payer MEDICAID, SELFPAY ==
[2021-11-06 09:37] VITALS: BP 133/107; PULSE 90; RESP 16; TEMP 37; O2SAT 93; BMI 42.2
--- NOTE | 2021-11-06 09:57 | ED_ITS ---
Documented by User: SHELTON Larose 11/07/21 07:03 HPI - COVID General: Chief Complaint: COVID symptoms Stated Complaint: covid exposure, body aches Time Seen by Provider: 11/06/21 09:41 Triage information: Has fever, cough or shortness of breath . Exposure to COVID + person last 14 days History of Present Illness: HPI Narrative: Patient says she has been having body aches and chills and COVID-like symptoms for the last week and a half. Says she needs a note that show she has had testing today because she was not tested other day. MD complaint: reported COVID exposure and has COVID symptoms COVID 19 common symptoms: positive body aches, headache(s) and nasal congestion; negative non-productive cough, productive cough, dyspnea, nausea or vomiting COVID 19 other sytmptoms: negative chest pain Severity: mild Pertinent comorbid conditions: hypertension Treatment prior to arrival: none COVID Results: SARS-CoV-2 RNA (RT-PCR) Not detected (NOT DETECTED) 06/15/21 12:05 06/15/21 Nasal/Oral Coronavirus 2019 PCR Not detected 02/25/21 19:47 02/25/21 Review of Systems Const: Reports: body aches Eyes: Denies: change in vision or blurry vision ENMT: Reports: nasal congestion Card: Denies: chest pain or dyspnea on exertion Resp: Denies: dyspnea, productive cough or non-productive cough GI: Denies: abdominal pain, nausea or vomiting Musc: Denies: extremity pain Skin/Breast: Denies: rash Neuro: Reports: headache(s) Psych: Denies: anxiety or depression Rui/Lymph: Denies: easy bruising PFSH ED PFSH: Medical History Abnormal reflex COPD (chronic obstructive pulmonary disease) HTN (hypertension) Neck pain Psychiatric care Psychiatric care Surgical History History of cholecystectomy Hx of section Hx of hysterectomy Family History Family/Other Cancer Diabetes Father Diabetes Hyperlipidemia Hypertension Stroke Mother Hypertension Stroke CAD (coronary artery disease) Rheumatoid arthritis Social History Second hand smoke exposure: Yes Alcohol intake: never History of recent travel: No Physical Exam Narrative: EXAM NARRATIVE: Patient no acute distress, speaking in complete sentences. Patient says she just has been aching and needs a note for work that show she has been tested so she can go back to work. Patient requesting test today. Const: COMMON NORMALS: no acute distress, average body habitus and patient oriented x3 HENMT: COMMON NORMALS: normocephalic HEAD & SCALP: normal to inspection and normocephalic FACE & SINUS: normal facial exam Eye: COMMON NORMALS: conjunctivae normal GENERAL EYE: appearance normal, both eyes and all related structures CONJUNCTIVA: Yes conjunctivae normal Neck/C-Spine: COMMON NORMALS: no JVD Chest: COMMONS NORMALS: normal inspection of the chest Resp: COMMON NORMALS: normal respiratory effort and clear to auscultation bilaterally AUSCULTATION: clear to auscultation bilaterally Cardio: COMMON NORMALS: no JVD, regular rate and regular rhythm RATE: regular rate RHYTHM: regular rhythm GI: COMMON NORMALS: Normal to inspection, nondistended, normoactive bowel sounds present Extremity: COMMON NORMALS: normal to inspection and full ROM Neuro: COMMON NORMALS: patient oriented x3 Course Vital Signs: Vital signs: Vital Signs Temperature 98.6 F 11/06/21 09:37 Pulse Rate 90 11/06/21 09:37 Respiratory Rate 16 11/06/21 09:37 Blood Pressure 133/107 11/06/21 09:37 Pulse Oximetry 97 11/06/21 10:10 MDM - COVID MDM Narrative: Medical decision making narrative: Patient presents here asking for a note for work so she can be off to her COVID symptoms. Patient does not appear in any acute distress. COVID swab was obtained and sent out for further testing. Patient was encouraged to quarantine in the meantime. Follow-up here or follow-up primary care if worsening symptoms. COVID Results: SARS-CoV-2 RNA (RT-PCR) Not detected (NOT DETECTED) 06/15/21 12:05 06/15/21 Nasal/Oral Coronavirus 2019 PCR Not detected 02/25/21 19:47 02/25/21 Discharge Plan Discharge Patient Disposition: Home Clinical Impression: Exposure to severe acute respiratory syndrome coronavirus 2 (SARS-CoV-2) Condition: Stable Prescriptions: New Decadron 6 mg tablet 6 mg PO DAILY Qty: 7 RF: 0 Celebrex 100 mg capsule 100 mg PO BID Qty: 20 RF: 0 No Action fluoxetine [Prozac] 40 mg capsule 40 mg PO QAM Qty: 30 RF: 1 (DME) ASO See Rx Instructions .Route .MEDSUPPLY Qty: 1 RF: 0 (DME) night splint to left See Rx Instructions .Route .MEDSUPPLY Qty: 1 RF: 0 prazosin 2 mg capsule 4 mg PO .qhs Qty: 60 RF: 0 clonazepam 0.5 mg tablet 0.5 mg PO BID PRN (Reason: anxiety/panic) Qty: 30 RF: 1 quetiapine 50 mg tablet extended release 24 hr 50 mg PO .q hs Qty: 60 RF: 0 dexamethasone sodium phosphate 4 mg/mL solution 8 mg intra-articular ONCE Qty: 2 RF: 0 bupivacaine (PF) 0.25 % (2.5 mg/mL) solution 4 ml intra-articular ONCE Qty: 4 RF: 0 lidocaine (PF) 10 mg/mL (1 %) solution 10 mg intra-articular ONCE Qty: 4 RF: 0 Ubrelvy 100 mg tablet See Rx Instructions .ROUTE .COMPLEX Qty: 10 RF: 0 diclofenac sodium [Voltaren Arthritis Pain] 1 % gel 4 g topical QID Qty: 100 RF: 0 cholecalciferol (vitamin D3) 1,250 mcg (50,000 unit) capsule 50,000 unit PO .qweek Qty: 14 RF: 0 amlodipine 5 mg Tablet 5 mg PO BEDTIME@2200 RF: 0 hydroxychloroquine 200 mg Tablet 200 mg PO BID@0800,2200 RF: 0 albuterol sulfate 90 mcg/actuation Hfa Aerosol Inhaler 2 puff INHALATION 6XD MDD SEE PHARMACY COMMENT PRN (Reason: Shortness Of Breath) RF: 0 pantoprazole 40 mg Tablet,Delayed Release (Dr/Ec) 40 mg PO DAILY@0800 RF: 0 diphenhydramine HCl [Benadryl] 25 mg Capsule 25 mg PO BEDTIME@2200 PRN (Reason: Insomnia) RF: 0 aspirin 81 mg Tablet,Chewable 81 mg PO DAILY RF: 0 ipratropium-albuterol 0.5 mg-3 mg(2.5 mg base)/3 mL solution for nebulization 3 ml INHALATION DAILY@0800 RF: 0 polyethylene glycol 3350 [Miralax] 17 gram/dose powder 17 g PO DAILY PRN (Reason: Constipation) RF: 0 budesonide-formoterol [Symbicort] 160-4.5 mcg/actuation Hfa Aerosol Inhaler 2 puff INHALATION Q12H RF: 0 Trulance 3 mg tablet 3 mg PO DAILY RF: 0 chlorthalidone 50 mg Tablet 25 mg PO DAILY@0800 Qty: 0 RF: 0 losartan 100 mg tablet 50 mg PO DAILY@0800 Qty: 0 RF: 0 Discharge Orders: Discharge ED (Routine); Ordered 11/06/21 Ordered By: Eladio Whitman Referrals: Alpesh Garcia MD [Primary Care Provider] - Discharge Diet: Usual diet Discharge Activity: Increase activity as tolerated Patient Instructions: COVID-19: Slow the Coronavirus Spread (ED) Activity Restrictions/Additional Instructions: Follow-up with medical provider as directed. Take medications as prescribed. Return to the ER or your medical provider if condition worsens. Please read and understand discharge instructions. If any questions ask please. He can call the hospital here in few hours and come pick your test result up to show your work. 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 Fwd Exam Comprehensive Documented by User: Juan Sutton DO 11/07/21 15:53 HPI - COVID General: Chief Complaint: COVID symptoms Stated Complaint: covid exposure, body aches Time Seen by Provider: 11/06/21 09:41 COVID Results: SARS-CoV-2 RNA (RT-PCR) Not detected (NOT DETECTED) 06/15/21 12:05 06/15/21 Nasal/Oral Coronavirus 2019 PCR Not detected 02/25/21 19:47 02/25/21 [facility] ED PFSH: Medical History Abnormal reflex COPD (chronic obstructive pulmonary disease) HTN (hypertension) Neck pain Psychiatric care Psychiatric care Surgical History History of cholecystectomy Hx of section Hx of hysterectomy Family History Family/Other Cancer Diabetes Father Diabetes Hyperlipidemia Hypertension Stroke Mother Hypertension Stroke CAD (coronary artery disease) Rheumatoid arthritis Social History Second hand smoke exposure: Yes Alcohol intake: never History of recent travel: No Course Vital Signs: Vital signs: Vital Signs Temperature 98.6 F 11/06/21 09:37 Pulse Rate 90 11/06/21 09:37 Respiratory Rate 16 11/06/21 09:37 Blood Pressure 133/107 11/06/21 09:37 Pulse Oximetry 97 11/06/21 10:10 MDM - COVID MDM Narrative: Medical decision making narrative: Chart reviewed and patient discussed with midlevel. Agree with assessment and plan. COVID Results: SARS-CoV-2 RNA (RT-PCR) Not detected (NOT DETECTED) 06/15/21 12:05 06/15/21 Nasal/Oral Coronavirus 2019 PCR Not detected 02/25/21 19:47 02/25/21 Discharge Plan Discharge Patient Disposition: Home Clinical Impression: Exposure to severe acute respiratory syndrome coronavirus 2 (SARS-CoV-2) Condition: Stable Prescriptions: New Decadron 6 mg tablet 6 mg PO DAILY Qty: 7 RF: 0 Celebrex 100 mg capsule 100 mg PO BID Qty: 20 RF: 0 No Action fluoxetine [Prozac] 40 mg capsule 40 mg PO QAM Qty: 30 RF: 1 (DME) ASO See Rx Instructions .Route .MEDSUPPLY Qty: 1 RF: 0 (DME) night splint to left See Rx Instructions .Route .MEDSUPPLY Qty: 1 RF: 0 prazosin 2 mg capsule 4 mg PO .qhs Qty: 60 RF: 0 clonazepam 0.5 mg tablet 0.5 mg PO BID PRN (Reason: anxiety/panic) Qty: 30 RF: 1 quetiapine 50 mg tablet extended release 24 hr 50 mg PO .q hs Qty: 60 RF: 0 dexamethasone sodium phosphate 4 mg/mL solution 8 mg intra-articular ONCE Qty: 2 RF: 0 bupivacaine (PF) 0.25 % (2.5 mg/mL) solution 4 ml intra-articular ONCE Qty: 4 RF: 0 lidocaine (PF) 10 mg/mL (1 %) solution 10 mg intra-articular ONCE Qty: 4 RF: 0 Ubrelvy 100 mg tablet See Rx Instructions .ROUTE .COMPLEX Qty: 10 RF: 0 diclofenac sodium [Voltaren Arthritis Pain] 1 % gel 4 g topical QID Qty: 100 RF: 0 cholecalciferol (vitamin D3) 1,250 mcg (50,000 unit) capsule 50,000 unit PO .qweek Qty: 14 RF: 0 amlodipine 5 mg Tablet 5 mg PO BEDTIME@2200 RF: 0 hydroxychloroquine 200 mg Tablet 200 mg PO BID@0800,2200 RF: 0 albuterol sulfate 90 mcg/actuation Hfa Aerosol Inhaler 2 puff INHALATION 6XD MDD SEE PHARMACY COMMENT PRN (Reason: Shortness Of Breath) RF: 0 pantoprazole 40 mg Tablet,Delayed Release (Dr/Ec) 40 mg PO DAILY@0800 RF: 0 diphenhydramine HCl [Benadryl] 25 mg Capsule 25 mg PO BEDTIME@2200 PRN (Reason: Insomnia) RF: 0 aspirin 81 mg Tablet,Chewable 81 mg PO DAILY RF: 0 ipratropium-albuterol 0.5 mg-3 mg(2.5 mg base)/3 mL solution for nebulization 3 ml INHALATION DAILY@0800 RF: 0 polyethylene glycol 3350 [Miralax] 17 gram/dose powder 17 g PO DAILY PRN (Reason: Constipation) RF: 0 budesonide-formoterol [Symbicort] 160-4.5 mcg/actuation Hfa Aerosol Inhaler 2 puff INHALATION Q12H RF: 0 Trulance 3 mg tablet 3 mg PO DAILY RF: 0 chlorthalidone 50 mg Tablet 25 mg PO DAILY@0800 Qty: 0 RF: 0 losartan 100 mg tablet 50 mg PO DAILY@0800 Qty: 0 RF: 0 Discharge Orders: Discharge ED (Routine); Ordered 11/06/21 Ordered By: Eladio Whitman Referrals: Alpesh Garcia MD [Primary Care Provider] - Discharge Diet: Usual diet Discharge Activity: Increase activity as tolerated Patient Instructions: COVID-19: Slow the Coronavirus Spread (ED) Activity Restrictions/Additional Instructions: Follow-up with medical provider as directed. Take medications as prescribed. Return to the ER or your medical provider if condition worsens. Please read and understand discharge instructions. If any questions ask please. He can call the hospital here in few hours and come pick your test result up to show your work. 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 Fwd Exam Comprehensive
[2021-11-06 10:10] VITALS: O2SAT 97
[2021-11-07 18:56] LABS: Quest SARS-CoV-2 RNA DETECTED (NOT DETECTED)
== END 2021-11-06 10:17 | disposition home or self-care (01) ==
PROVIDERS: Emergency Provider Nurse Practitioner Family; PCP Family Medicine
DX: U07.1 COVID-19 (principal); Z79.82 Long term (current) use of aspirin; J44.9 Chronic obstructive pulmonary disease, unspecified; I10 Essential (primary) hypertension; Z77.22 Contact with and (suspected) exposure to environmental tobacco smoke (acute) (chronic)
CPT/HCPCS: 87635; 99282

== ENCOUNTER 2021-11-16 07:40 | Emergency (ER) | payer MEDICAID, SELFPAY ==
--- NOTE | 2021-11-16 07:46 | ED_ITS ---
HPI - COVID General: Chief Complaint: COVID symptoms Stated Complaint: Was covid positive on the worsening Time Seen by Provider: 11/16/21 07:44 History of Present Illness: 50-year-old female who is seen in the emergency room 10 days ago tested positive for Covid PCR swab. Presents today with complaint of persistent cough myalgias low-grade fever. Cough is been nonproductive. She has some mild anosmia. She has some abdominal discomfort from coughing so much. She has had a little bit of vomiting denies any medication melena hematemesis cough cramps no dysuria urgency or frequency. MD complaint: known COVID positive Prior covid testing: no Prior testing date: 11/06/21 COVID 19 common symptoms: positive fever(s), chills, cough, non-productive cough, dyspnea, fatigue, body aches, headache(s), loss of sense of smell and/or taste, nasal congestion, nausea, vomiting and diarrhea COVID 19 other sytmptoms: negative chest pain or requiring oxygen Onset (ago): day(s) (+10) Severity: mild Pertinent comorbid conditions: obesity Treatment prior to arrival: steroids COVID Results: SARS-CoV-2 RNA (RT-PCR) Detected (NOT DETECTED) A 11/06/21 10:15 11/06/21 Nasal/Oral Coronavirus 2019 PCR Not detected 02/25/21 19:47 02/25/21 Review of Systems Const: Reports: fever(s), chills, body aches and fatigue ENMT: Reports: nasal congestion Card: Denies: chest pain, edema, dyspnea on exertion or orthopnea Resp: Reports: dyspnea and non-productive cough GI: Reports: nausea, vomiting and diarrhea : Denies: flank pain, difficulty voiding, dysuria, urinary frequency or urinary urgency Skin/Breast: Denies: rash or pruritus Neuro: Reports: headache(s) PFSH ED PFSH: Medical History Abnormal reflex COPD (chronic obstructive pulmonary disease) HTN (hypertension) Neck pain Psychiatric care Psychiatric care Surgical History History of cholecystectomy Hx of section Hx of hysterectomy Family History Family/Other Cancer Diabetes Father Diabetes Hyperlipidemia Hypertension Stroke Mother Hypertension Stroke CAD (coronary artery disease) Rheumatoid arthritis Social History Second hand smoke exposure: Yes Alcohol intake: never History of recent travel: No Physical Exam Const: GENERAL APPEARANCE: cooperative and comfortable ORIENTATION/CONSCIOUSNESS: Yes awake, Yes oriented to person, Yes oriented to place and Yes oriented to time HENMT: COMMON NORMALS: normocephalic, atraumatic and hearing grossly normal bilaterally HEAD & SCALP: normocephalic and atraumatic Neck/C-Spine: COMMON NORMALS: no JVD Resp: COMMON NORMALS: normal respiratory effort, No retractions and No use of accessory muscles AUSCULTATION: wheezes Cardio: COMMON NORMALS: no JVD, regular rate, regular rhythm and No murmurs present (Cardio) RATE: regular rate RHYTHM: regular rhythm GI: COMMON NORMALS: Soft to palpation and No hepatosplenomegaly present AUSCULTATION: Yes normoactive bowel sounds PALPATION: Yes Soft to palpation, No Tenderness to palpation present (GI), No Guarding due to palpation present (GI) and Yes No hepatosplenomegaly present Extremity: COMMON NORMALS: normal to inspection, capillary refill normal, no clubbing, cyanosis or edema, no calf tenderness and no pedal edema Neuro: SENSORIUM/ORIENTATION: Yes oriented to person, Yes oriented to place and Yes oriented to time Skin: COMMON NORMALS: no rashes or lesions noted GENERAL SKIN EXAM: no rashes or lesions noted Course Vital Signs: Vital signs: Vital Signs Temperature 97.5 F L 11/16/21 07:54 Pulse Rate 106 H 11/16/21 07:54 Respiratory Rate 18 11/16/21 07:54 Blood Pressure 142/103 11/16/21 07:54 Pulse Oximetry 94 11/16/21 08:21 [facility] - COVID Medical Decision Making Labs imaging reviewed on the chart. Home O2 eval show the patient does not require oxygen. Will discharge home Zofran to use as needed continue quarantine as per recommendation of the health department follow-up as needed. Medical Records I reviewed the patient's medical records. Lab Data I reviewed the patient's lab results. Radiology Impressions Chest X-Ray 11/16/21 07:47 IMPRESSION: Recent development of bilateral lower lobe opacifications. Due to the acute onset probably pneumonia. Opacifications are new since 10/28/2021. SARS-CoV-2 RNA (RT-PCR) Detected (NOT DETECTED) A 11/06/21 10:15 11/06/21 Nasal/Oral Coronavirus 2019 PCR Not detected 02/25/21 19:47 02/25/21 Discharge Plan Discharge Patient Disposition: Home Clinical Impression: COVID-19 Condition: Stable Prescriptions: New Zofran 4 mg tablet 4 mg PO Q6H PRN (Reason: nausea and vomiting) Qty: 15 0RF No Action fluoxetine [Prozac] 40 mg capsule 40 mg PO QAM Qty: 30 1RF Rx Instructions: Take one capsule by mouth every morning; stop sertraline (DME) ASO See Rx Instructions .Route .MEDSUPPLY Qty: 1 0RF Rx Instructions: As directed (DME) night splint to left See Rx Instructions .Route .MEDSUPPLY Qty: 1 0RF Rx Instructions: As directed prazosin 2 mg capsule 4 mg PO .qhs Qty: 60 0RF Rx Instructions: Take two capsules daily at bedtime for a total of 4 mg; hold for low BP clonazepam 0.5 mg tablet 0.5 mg PO BID PRN (Reason: anxiety/panic) Qty: 30 1RF Rx Instructions: Take 1/2 to 1 tablet twice daily, if needed for anxiety/panic symptoms quetiapine 50 mg tablet extended release 24 hr 50 mg PO .q hs Qty: 60 0RF Rx Instructions: Take two tablets by mouth at bedtime dexamethasone sodium phosphate 4 mg/mL solution 8 mg intra-articular ONCE Qty: 2 0RF bupivacaine (PF) 0.25 % (2.5 mg/mL) solution 4 ml intra-articular ONCE Qty: 4 0RF lidocaine (PF) 10 mg/mL (1 %) solution 10 mg intra-articular ONCE Qty: 4 0RF Ubrelvy 100 mg tablet See Rx Instructions .ROUTE .COMPLEX Qty: 10 0RF Dose Instruction: TAKE 1 TABLET BY MOUTH ONCE AT ONSET OF HEADACHE, MAX 1 TABLET IN 24 HOURS Rx Instructions: TAKE 1 TABLET BY MOUTH ONCE AT ONSET OF HEADACHE, MAX 1 TABLET IN 24 HOURS diclofenac sodium [Voltaren Arthritis Pain] 1 % gel 4 g topical QID Qty: 100 0RF Rx Instructions: apply to single knee, ankle, foot; for foot includes sole/toes/top of foot cholecalciferol (vitamin D3) 1,250 mcg (50,000 unit) capsule 50,000 unit PO .qweek Qty: 14 0RF amlodipine 5 mg Tablet 5 mg PO BEDTIME@2200 0RF hydroxychloroquine 200 mg Tablet 200 mg PO BID@0800,2200 0RF albuterol sulfate 90 mcg/actuation Hfa Aerosol Inhaler 2 puff INHALATION 6XD MDD SEE PHARMACY COMMENT PRN (Reason: Shortness Of Breath) 0RF pantoprazole 40 mg Tablet,Delayed Release (Dr/Ec) 40 mg PO DAILY@0800 0RF diphenhydramine HCl [Benadryl] 25 mg Capsule 25 mg PO BEDTIME@2200 PRN (Reason: Insomnia) 0RF aspirin 81 mg Tablet,Chewable 81 mg PO DAILY 0RF ipratropium-albuterol 0.5 mg-3 mg(2.5 mg base)/3 mL solution for nebulization 3 ml INHALATION DAILY@0800 0RF polyethylene glycol 3350 [Miralax] 17 gram/dose powder 17 g PO DAILY PRN (Reason: Constipation) 0RF budesonide-formoterol [Symbicort] 160-4.5 mcg/actuation Hfa Aerosol Inhaler 2 puff INHALATION Q12H 0RF Trulance 3 mg tablet 3 mg PO DAILY 0RF Decadron 6 mg tablet 6 mg PO DAILY Qty: 7 0RF Celebrex 100 mg capsule 100 mg PO BID Qty: 20 0RF chlorthalidone 50 mg Tablet 25 mg PO DAILY@0800 Qty: 0 0RF losartan 100 mg tablet 50 mg PO DAILY@0800 Qty: 0 0RF Discharge Orders: Discharge ED (Routine); Ordered 11/16/21 Ordered By: Juan Sutton Referrals: Alpesh Garcia MD [Primary Care Provider] - Patient Instructions: Opioid Safety Coding Level of Care Code ED Exceptional Student Education Aide for Francine Fwd Exam Comprehensive
--- NOTE | 2021-11-16 07:47 | XR_ITS ---
WS: [id number] PORTABLE CHEST HISTORY: dyspnea/cough COMPARISON: 10/28/2021 and 06/08/2021 New hazy infiltrates and consolidations are developing at the lung bases and over the hilar regions. Slightly greater along the periphery of the LEFT lower lung field. Upper lung mckenzie are clear. No pl eural effusion or pneumothorax. Cardiac size: Normal. Mediastinum/Aorta: Mild atherosclerosis aorta. No osseous abnormality seen. XR/XR chest 1V portable [id number] IMPRESSION: Recent development of bilateral lower lobe opacifications. Due to the acute ons et probably pneumonia. Opacifications are new since 10/28/2021.
[2021-11-16 07:54] VITALS: BP 142/103; PULSE 106; RESP 18; TEMP 36.4; O2SAT 91; BMI 42.2
[2021-11-16 08:09] VITALS: O2SAT 92; O2SAT 94
[2021-11-16 08:21] VITALS: O2SAT 94
[2021-11-16 10:26] VITALS: BP 174/109; PULSE 97; RESP 16; O2SAT 94
== END 2021-11-16 10:23 | disposition home or self-care (01) ==
PROVIDERS: Emergency Provider Family Medicine; PCP Family Medicine
DX: U07.1 COVID-19 (principal); Z79.82 Long term (current) use of aspirin; J44.9 Chronic obstructive pulmonary disease, unspecified; I10 Essential (primary) hypertension; Z77.22 Contact with and (suspected) exposure to environmental tobacco smoke (acute) (chronic)
CPT/HCPCS: 71045; 99283

== ENCOUNTER 2021-11-17 18:39 | Inpatient (IN) | payer MEDICAID, SELFPAY ==
[2021-11-17 19:02] VITALS: BP 156/102; PULSE 111; RESP 18; TEMP 36.7; O2SAT 95
[2021-11-17 20:37] VITALS: O2SAT 94
--- NOTE | 2021-11-17 20:39 | ECG_ITS ---
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
--- NOTE | 2021-11-17 20:39 | XRR_ITS ---
PROCEDURE INFORMATION: Exam: XR Chest Exam date and time: 11/17/2021 8:39 PM Age: 50 years old Clinical indication: Dyspnea; Additional info: SOB TECHNIQUE: Imaging protocol: XR of the chest. Views: 1 view. COMPARISON: 1. CR XR chest 1V portable [id number] 11/16/2021 8:03 AM 2. CR XR chest 1V portable [id number] 10/28/2021 10:27 PM FINDINGS: Lungs: Bilateral peripheral ground-glass infiltrates in both lungs. Pleural spaces: No pleural effusion. No pneumothorax. Heart/Mediastinum: No cardiomegaly. Bones/joints: Unremarkable. XR/XR chest 1V portable [id number] IMPRESSION: 1. Bilateral peripheral ground-glass infiltrates in both lungs. This is unchanged from 11/08/2021, and is new when compared to 10/28/2021. 2. Commonly reported imaging features of COVID-19 pneumonia are present. Other processes such as influenza pneumonia and organizing pneumonia, as can be seen with drug toxicity and connective tissue disease, can cause a similar imaging pattern. (Reference: Boy) REFERENCES: Boy Jolly et al., Radiological Society of [place] Expert Consensus Statement on Reporting Chest CT Findings Related to COVID-19. Endorsed by the Society of Thoracic Radiology, the [place] [employer], and [employer]NA. Published January 12, 2020.
[2021-11-17 20:53] LABS: Basophils % 0.4 %; Eosinophils # 0.2 10^3/uL (0.0-0.8); Eosinophils % 3.6 %; Hematocrit 44.6 % (37.0-47.0); Hemoglobin 14.2 g/dL (11.5-15.3); Lymphocytes # 1.4 10^3/uL (0.8-4.8); Lymphocytes % 26.9 %; Mean Corpuscular HGB Conc 31.8 g/dL (30.0-36.0); Mean Corpuscular Hemoglobin 28.3 pg (28.0-34.0); Mean Corpuscular Volume 88.8 fl (81-99); Mean Platelet Volume 9.8 fL (7.4-10.4); Monocytes # 0.5 10^3/uL (0.2-0.9); Monocytes % 10.4 %; Neutrophils # 3.04 10^3/uL (1.8-7.7); Neutrophils % 58.3 %; Nucleated Red Blood Cells % 0 %; Platelet Count 411 10^3/cmm (130-400); Red Blood Count 5.02 10^6/uL (4.1-5.3); Red Cell Distribution Width 13.8 % (12.1-15.1); White Blood Count 5.2 10^3/uL (4.0-10.0)
[2021-11-17] MEDS: ipratropium-albuterol 3 mL Neb INHALATION (21:02)
[2021-11-17] MEDS: sodium chloride 0.9% 1,000 ML 999 ML IV (21:04)
[2021-11-17] MEDS: ondansetron 2 mg/ML SDV 2 mL 4 MG IV (21:04)
[2021-11-17] MEDS: morphine 4 mg/mL SDV 1 mL IVP (21:04)
[2021-11-17 21:06] VITALS: PULSE 92; RESP 20; O2SAT 93
[2021-11-17 21:10] VITALS: PULSE 84
[2021-11-17 21:11] LABS: Lactic Sepsis W/Reflex 1.4 mmol/L (0.5-2.2)
[2021-11-17 21:22] VITALS: BP 111/64; PULSE 104; RESP 19; O2SAT 92
[2021-11-17 21:25] LABS: D Dimer >= 20.00 ug/mIFEU (0-0.59); NT Pro B Type Natriuretic Pept 59 pg/mL (0-125); Procalcitonin 0.04 ng/mL (0-0.5)
[2021-11-17 21:36] LABS: Alanine Aminotransferase 32 U/L (0-33); Albumin Level 3.9 g/dL (3.5-5.2); Alkaline Phosphatase 146 IU/L (35-105); Anion Gap 20.3 (5-19); Aspartate Amino Transferase 22 U/L (0-32); Blood Urea Nitrogen 5 mg/dL (6-20); C Reactive Protein 24.1 mg/L (0.0-4.9); Calcium 9.5 mg/dL (8.5-10.5); Carbon Dioxide 23 mmol/L (22-29); Chloride 98 mmol/L (98-107); Globulin 3.5 g/dL (1.3-4.6); Glomerular Filtration Rate 131.1 mL/min (90-130); Glucose 106 mg/dL (65-115); Osmolality Calculated 284 mOsm/kg (285-295); Potassium 3.3 mmol/L (3.5-5.1); Sodium 138 mmol/L (136-145); Total Bilirubin 1.4 mg/dL (0.15-1.2); Total Protein 7.4 g/dL (6.6-8.7)
--- NOTE | 2021-11-17 21:36 | CTR_ITS ---
PROCEDURE INFORMATION: Exam: CTA Chest With Contrast Exam date and time: 11/17/2021 9:36 PM Age: 50 years old Clinical indication: Nausea and vomiting; Shortness of breath; Prior surgery; Surgery date: 6+ months; Surgery type: Gb, hyst; Patient HX: C/O chest and abd pain w SOB n/v and elev d-dimer; Additional info: Chest pain abd pain SOB TECHNIQUE: Imaging protocol: Computed tomographic angiography of the chest with contrast. 3D rendering (Not supervised by radiologist): MIP and/or 3D reconstructed images were created by the technologist. Radiation optimization: All CT scans at this facility use at least one of these dose optimization techniques: automated exposure control; mA and/or kV adjustment per patient size (includes targeted exams where dose is matched to clinical indication); or iterative reconstruction. Contrast material: OMNI 350; Contrast volume: 95 ml; Contrast route: INTRAVENOUS (IV); COMPARISON: CR (CHEST, ) 11/17/2021 9:34 PM RADIATION DOSE METRICS: Total DLP (mGy-cm): 1763.27 FINDINGS: Pulmonary arteries: Pulmonary arteries are normal in caliber. No filling defects are demonstrated. No evidence of pulmonary embolism. Aorta: No aortic aneurysm. No aortic dissection. Lungs: Bilateral peripheral ground-glass pulmonary densities noted. 5 mm calcified granuloma left lung base. Pleural spaces: No pleural effusion or pneumothorax noted. Heart: No cardiomegaly. No pericardial effusion. Lymph nodes: Nonspecific mediastinal lymph nodes measuring up to 12 mm short axis. Bilateral hilar lymph nodes are noted measuring up to 11 mm in length. Bones/joints: Unremarkable. No acute osseous abnormality. Soft tissues: Unremarkable. pattern. (Reference: Boy) REFERENCES: Boy Jolly, et al., Radiological Society of [place] Expert Consensus Statement on Reporting Chest CT Findings Related to COVID-19. Endorsed by the Society of Thoracic Radiology, the [place] [employer], and RSNA. Published January 12, 2020. PROCEDURE INFORMATION: Exam: CT Abdomen And Pelvis With Contrast Exam date and time: 11/17/2021 9:36 PM Age: 50 years old Clinical indication: Nausea and vomiting; Shortness of breath; Prior surgery; Surgery date: 6+ months; Surgery type: Gb, hyst; Patient HX: C/O chest and abd pain w SOB n/v and elev d-dimer; Additional info: Chest pain abd pain SOB TECHNIQUE: Imaging protocol: Computed tomography of the abdomen and pelvis with contrast. Radiation optimization: All CT scans at this facility use at least one of these dose optimization techniques: automated exposure control; mA and/or kV adjustment per patient size (includes targeted exams where dose is matched to clinical indication); or iterative reconstruction. Contrast material: OMNI 350; Contrast volume: 95 ml; Contrast route: INTRAVENOUS (IV); COMPARISON: CR (CHEST, ) 11/17/2021 9:34 PM RADIATION DOSE METRICS: Total DLP (mGy-cm): 1763.27 FINDINGS: Liver: The liver is unremarkable in appearance. Gallbladder and bile ducts: The gallbladder is surgically absent. Pancreas: The pancreas is normal in appearance. No pancreatic duct dilatation. Spleen: The spleen is normal in size and appearance. Adrenal glands: The adrenal glands appear within normal limits. Kidneys and ureters: The kidneys are normal in morphology. No hydronephrosis. No solid mass. Stomach and bowel: Diverticulosis of the descending and sigmoid colon. No evidence of acute diverticulitis. No acute gastric abnormality demonstrated. The 4th portion of the duodenum and the proximal jejunum are dilated with air-fluid levels. The jejunal loops measure up to 3 cm in diameter. The mid/distal jejunum, and the ileum are normal in caliber. Appendix: The appendix is normal in appearance. No evidence of appendicitis. Intraperitoneal space: No pneumoperitoneum. No significant fluid collection. Vasculature: The aorta is unremarkable as demonstrated. Lymph nodes: No pathologically enlarged lymph nodes. Urinary bladder: The urinary bladder is unremarkable in appearance. Reproductive: The uterus is surgically absent. Bones/joints: Unremarkable. No acute osseous abnormality. Soft tissues: Unremarkable. CT/CT angio chest w abd pel w con IMPRESSION: 1. Pulmonary arteries appear unremarkable. No evidence of pulmonary embolism. 2. No evidence of thoracic aortic aneurysm or dissection. 3. Bilateral peripheral ground-glass pulmonary densities noted. Commonly reported imaging features of COVID-19 pneumonia are present. Other processes such as influenza pneumonia and organizing pneumonia, as can be seen with drug toxicity and connective tissue disease, can cause a similar imaging IMPRESSION: 1. Multiple mildly dilated dilated proximal small bowel loops with air-fluid levels. The findings are suggestive of early or partial proximal small bowel obstruction. 2. Diverticulosis of the descending and sigmoid colon. No evidence of acute diverticulitis. 3. No acute abnormality demonstrated of the solid organs.
[2021-11-17] MEDS: lidocaine 2% viscous 15 ML, aluminum-mag hydrox-simethicon 30 ML, sucralfate oral liq 1 GM PO (21:47)
[2021-11-17 21:48] LABS: Add Urine Microscopic? YES; Bilirubin Urine 1+ (Negative); Blood Urine 2+ (Negative); Glucose Urine UA Norm (Normal); Ketones Urine 1+ (Negative); Leukocyte Esterase Urine 2+ (Negative); Nitrate Urine Negative (Negative); Protein Urine 1+ (Negative); Urine Color Yellow (Yellow); Urobilinogen Urine 8 mg/dL (Negative); pH Urine 7 (5-7)
[2021-11-17 21:49] LABS: Squamous Epithelial Cell Urine TOO NUMEROUS TO CNT /hpf (0-5); WBC Urine 40-55 /hpf (0-5)
[2021-11-17 21:50] LABS: Add Urine Culture? No; Bacteria Urine 4+ /hpf; Mucus Urine 2+ /hpf
[2021-11-17 21:58] LABS: Influenza A by IFA Negative (Negative); Influenza B by IFA Negative (Negative)
--- NOTE | 2021-11-17 22:10 | ED_ITS ---
HPI - COVID General: Chief Complaint: COVID symptoms Stated Complaint: COVID +, SOB Time Seen by Provider: 11/17/21 20:15 Source: patient Triage information: Has fever, cough or shortness of breath . Exposure to COVID + person last 14 days History of Present Illness: Ana Paula is a 50-year-old female. She tested positive for COVID-19 on 11/06. She has had continued symptoms of shortness of breath, cough, vomiting and diarrhea. She notes that she vomited 3 times today. She is throwing up her blood pressure medication. She has not eaten food in a few days, and is having trouble staying hydrated. MD complaint: known COVID positive Prior covid testing: yes, results known COVID 19 common symptoms: positive chills, non-productive cough, dyspnea, fatigue, body aches, headache(s), throat pain, nausea, vomiting and diarrhea COVID 19 other sytmptoms: positive chest pressure and chest pain Onset (ago): day(s) Pertinent comorbid conditions: hypertension and COPD/respiratory disease COVID Results: SARS-CoV-2 RNA (RT-PCR) Detected (NOT DETECTED) A 11/06/21 10:15 11/06/21 Nasal/Oral Coronavirus 2019 PCR Not detected 02/25/21 19:47 02/25/21 Review of Systems Const: Reports: chills, body aches and fatigue ENMT: Reports: throat pain Card: Reports: chest pain Resp: Reports: dyspnea and non-productive cough GI: Reports: nausea, vomiting and diarrhea : Reports: dysuria; Denies: flank pain Skin/Breast: Denies: rash Neuro: Reports: headache(s) Psych: Reports: anxiety PFSH ED PFSH: Medical History Abnormal reflex COPD (chronic obstructive pulmonary disease) HTN (hypertension) Neck pain Psychiatric care Psychiatric care Surgical History History of cholecystectomy Hx of section Hx of hysterectomy Family History Family/Other Cancer Diabetes Father Diabetes Hyperlipidemia Hypertension Stroke Mother Hypertension Stroke CAD (coronary artery disease) Rheumatoid arthritis Social History Second hand smoke exposure: Yes Alcohol intake: never History of recent travel: No Physical Exam Const: GENERAL APPEARANCE: cooperative and ill appearing (Mildly); not frail appearing ORIENTATION/CONSCIOUSNESS: Yes awake, Yes oriented to person and Yes oriented to place HENMT: COMMON NORMALS: normocephalic, atraumatic and Normal external nose present HEAD & SCALP: normocephalic and atraumatic FACE & SINUS: normal f acial exam NOSE: Normal external nose present Eye: COMMON NORMALS: Equal, round and reactive pupils present and EOMs intact bilaterally PUPIL: Yes Equal, round and reactive pupils present Chest: COMMONS NORMALS: normal inspection of the chest Resp: COMMON NORMALS: clear to auscultation bilaterally EFFORT & INSPECTION: Yes tachypneic and No respiratory distress AUSCULTATION: clear to auscultation bilaterally, no rhonchi and wheezes (Mild) Cardio: COMMON NORMALS: regular rhythm RATE: tachycardic RHYTHM: regular rhythm GI: COMMON NORMALS: Normal to inspection, nondistended, normoactive bowel sounds present and Soft to palpation PALPATION: Yes Soft to palpation and Yes Tenderness to palpation present (GI) (Epigastric) Neuro: KANWAL COMA SCALE: document GCS findings SENSORIUM/ORIENTATION: Yes oriented to person and Yes oriented to place Course Consultations: Consultation #1: [email or web address] Vital Signs: Vital signs: Vital Signs Temperature 98.1 F 11/17/21 19:02 Pulse Rate 82 11/17/21 23:28 Respiratory Rate 18 11/17/21 23:28 Blood Pressure 111/64 11/17/21 21:22 Pulse Oximetry 94 11/17/21 23:28 [facility] - COVID Medical Decision Making 50-year-old female who who presented for the second time in 36 hours with the symptoms above. She has not held any fluid down since here. She is continue to vomit. She is short of breath. She is complaining of belly pain. White blood cell count is 5. Potassium 3.3. She has bilateral infiltrates on chest x-ray. Her D-dimer is greater than 20. Because of this, CTA of the chest was ordered, showing no pulmonary embolus, but again groundglass opacities. Follow-through with the belly due to vomiting and belly pain shows air-fluid levels in the proximal small bowel suggestive of ileus versus partial small bowel obstruction. She will be admitted for these problems. Hospitalist has seen the patient in the ER. Lab Data : 11/17/21 20:32 11/17/21 20:32 Radiology Impressions Chest X-Ray 11/17/21 20:39 IMPRESSION: 1. Bilateral peripheral ground-glass infiltrates in both lungs. This is unchanged from 11/08/2021, and is new when compared to 10/28/2021. 2. Commonly reported imaging features of COVID-19 pneumonia are present. Other processes such as influenza pneumonia and organizing pneumonia, as can be seen with drug toxicity and connective tissue disease, can cause a similar imaging pattern. (Reference: Boy) REFERENCES: Boy Jolly, et al., Radiological Society [place] Expert Consensus Statement on Reporting Chest CT Findings Related to COVID-19. Endorsed by the Society of Thoracic Radiology, the [place] [employer], and RSNA. Published January 12, 2020. Chest/Abdomen/Pelvis CT 11/17/21 21:36 IMPRESSION: 1. Pulmonary arteries appear unremarkable. No evidence of pulmonary embolism. 2. No evidence of thoracic aortic aneurysm or dissection. 3. Bilateral peripheral ground-glass pulmonary densities noted. Commonly reported imaging features of COVID-19 pneumonia are present. Other processes such as influenza pneumonia and organizing pneumonia, as can be seen with drug toxicity and connective tissue disease, can cause a similar imaging IMPRESSION: 1. Multiple mildly dilated dilated proximal small bowel loops with air-fluid levels. The findings are suggestive of early or partial proximal small bowel obstruction. 2. Diverticulosis of the descending and sigmoid colon. No evidence of acute diverticulitis. 3. No acute abnormality demonstrated of the solid organs. Laboratory Results WBC 5.2 10^3/uL (4.0-10.0) 11/17/21 20:32 RBC 5.02 10^6/uL (4.1-5.3) 11/17/21 20:32 Hgb 14.2 g/dL (11.5-15.3) 11/17/21 20: Hct 44.6 % (37.0-47.0) 11/17/21 20:32 MCV 88.8 fl (81-99) 11/17/21 20: MCH 28.3 pg (28.0-34.0) 11/17/21 20:32 MCHC 31.8 g/dL (30.0-36.0) 11/17/21 20:32 RDW 13.8 % (12.1-15.1) 11/17/21 20:32 Plt Count 411 10^3/cmm (130-400) H 11/17/21 20:32 MPV 9.8 fL (7.4-10.4) 11/17/21 20:32 Neut % (Auto) 58.3 % 11/17/21 20: Lymph % (Auto) 26.9 % 11/17/21 20:32 Sutter % (Auto) 10.4 % 11/17/21 20:32 Eos % (Auto) 3.6 % 11/17/21 20: Baso % (Auto) 0.4 % 11/17/21: Neut # (Auto) 3.04 10^3/uL (1.8-7.7) 11/17/21 20: Lymph # (Auto) 1.4 10^3/uL (0.8-4.8) 11/17/21 20:32 Sutter # (Auto) 0.5 10^3/uL (0.2-0.9) 11/17/21 20: Eos # (Auto) 0.2 10^3/uL (0.0-0.8) 11/17/21 20: Baso # (Auto) 0.0 10^3/uL (0.0-0.1) 11/17/21 20:32 Nucleated RBC % (auto) 0 % 11/17/21: Nucleated RBCs # 0.0 /100WBC 11/17/21 20:32 D-Dimer >= 20.00 ug/mIFEU (0-0.59) H 11/17/21 20:32 Sodium 138 mmol/L (136-145) 11/17/21 20:32 Potassium 3.3 mmol/L (3.5-5.1) L 11/17/21 20:32 Chloride 98 mmol/L (98-107) 11/17/21 20:32 Carbon Dioxide 23 mmol/L (22-29) 11/17/21 20:32 Anion Gap 20.3 (5-19) H 11/17/21 20:32 BUN 5 mg/dL (6-20) L 01/29/22 20:32 Creatinine 0.5 mg/dL (0.5-0.9) 11/17/21 20:32 GFR Calculation 131.1 mL/min (90-130) H 11/17/21 20:32 Glucose 106 mg/dL (65-115) 11/17/21 20:32 Calculated Osmolality 284 mOsm/kg (285-295) L 11/17/21 20:32 Lactic Acid 1.4 mmol/L (0.5-2.2) 11/17/21 20: Calcium 9.5 mg/dL (8.5-10.5) 11/17/21 20:32 Total Bilirubin 1.4 mg/dL (0.15-1.2) H 11/17/21 20:32 AST 22 U/L (0-32) 11/17/21 20: ALT 32 U/L (0-33) 11/17/21 20:32 Alkaline Phosphatase 146 IU/L (35-105) H 11/17/21 20:32 C-Reactive Protein 24.1 mg/L (0.0-4.9) H 11/17/21 20:32 NT-Pro-B Natriuret Pep 59 pg/mL (0-125) 11/17/21 20:32 Total Protein 7.4 g/dL (6.6-8.7) 11/17/21 20: Albumin 3.9 g/dL (3.5-5.2) 11/17/21 20: Globulin 3.5 g/dL (1.3-4.6) 11/17/21 20:32 Procalcitonin 0.04 ng/mL (0-0.5) 11/17/21 20:32 Urine Color Yellow (Yellow) 11/17/21 19:20 Urine Appearance Sl cloudy (CLEAR) A 11/17/21 19:20 Urine pH 7 (5-7) 11/17/21 19:20 Ur Specific [place] 1.010 (1.005-1.030) 11/17/21 19:20 Urine Protein 1+ (Negative) H 11/17/21 19:20 Urine Glucose (UA) Norm (Normal) 11/17/21 19:20 Urine Ketones 1+ (Negative) H 11/17/21 19:20 Urine Blood 2+ (Negative) H 11/17/21 19:20 Urine Nitrate Negative (Negative) 11/17/21 19:20 Urine Bilirubin 1+ (Negative) H 11/17/21 19:20 Urine Urobilinogen 8 mg/dL (Negative) H 11/17/21 19:20 Ur Leukocyte Esterase 2+ (Negative) H 11/17/21 19:20 Urine RBC 10-15 /hpf (0-2) H 11/17/21 19:20 Urine WBC 40-55 /hpf (0-5) H 11/17/21 19:20 Ur Squamous Epith Cells Too numerous to cnt /hpf (0-5) H 11/17/21 19:20 Amorphous Sediment Not Reportable 11/17/21 19:20 Urine Bacteria 4+ /hpf (NONE) H 11/17/21 19:20 Urine Mucus 2+ /hpf 11/17/21 19:20 Influenza Type A Ag Negative (Negative) 11/17/21 20:32 Influenza Type B Ag Negative (Negative) 11/17/21 20:32 SARS-CoV-2 RNA (RT-PCR) Detected (NOT DETECTED) A 11/06/21 10:15 11/06/21 Nasal/Oral Coronavirus 2019 PCR Not detected 02/25/21 19:47 02/25/21 Discharge Plan Discharge Patient Disposition: Admitted As Inpatient Admit Provider: Keaton Potts Clinical Impression: 2019 novel coronavirus-infected pneumonia (NCIP), Partial obstruction of small intestine Condition: Stable Coding Level of Care Code ED Relocation Services Specialist for Chg Fwd Exam Comprehensive
[2021-11-17] MEDS: iohexol 350 mg/mL 100 mL Btl IV (22:38)
[2021-11-17 23:28] VITALS: PULSE 82; RESP 18; O2SAT 94
[2021-11-18] VITALS (20 sets, daily range): BP systolic 100–151; BP diastolic 59–105; PULSE 67–89; RESP 12–21; TEMP 36.5–36.8; O2SAT 92–99
--- NOTE | 2021-11-18 00:39 | P.HP_ITS ---
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 Patient tells me that she tested positive for COVID-19 on November 08, but her symptoms as above started on November 05. Her symptomatology continue to worsen, particularly worsening diarrhea, poor appetite, she tells me that she has not eaten anything for the last 3 days, she has recurrent cricopharyngeal stricture she is supposed to be having another dilatation in [place], but with her COVID-19 diagnoses e verything got delayed. She has been also increasingly short of breath, with wheezing is on steroids, has a history of asthma. No history of Covid vaccination, no history of flu vaccination. Review of Systems Const: Reports: fever(s), chills, body aches, fatigue and malaise Eyes: Denies: change in vision or blurry vision ENMT: Denies: nasal congestion Card: Reports: lightheadedness, dyspnea on exertion and orthopnea; Denies: chest pain or palpitations Resp: Reports: dyspnea, non-productive cough and wheezing; Denies: productive cough GI: Reports: abdominal pain, nausea, vomiting and diarrhea; Denies: hematemesis, constipation, hematochezia or melena : Denies: flank pain, dysuria or urinary frequency Musc: Denies: neck pain or back pain Skin/Breast: Denies: rash Neuro: Reports: dizziness; Denies: headache(s) or vertigo Psych: Reports: depression; Denies: anxiety Endo: Denies: polyuria or polydipsia Medications/Allergies Home Medications Medication Instructions Recorded Confirmed Last Taken Type albuterol sulfate 90 mcg/actuation 2 puff INHALATION 6XD PRN MDD SEE 02/23/21 09/27/21 Unknown History aerosol inhaler PHARMACY COMMENT amlodipine 5 mg tablet 5 mg PO BEDTIME@2200 02/23/21 09/27/21 03/26/21 History aspirin 81 mg chewable tablet 81 mg PO DAILY 02/23/21 09/27/21 Unknown History diphenhydramine HCl 25 mg capsule 25 mg PO BEDTIME@2200 PRN 02/23/21 09/27/21 03/26/21 History (Benadryl) hydroxychloroquine 200 mg tablet 200 mg PO BID@0800,2200 02/23/21 09/27/21 03/27/21 History pantoprazole 40 mg tablet,delayed 40 mg PO DAILY@0800 02/23/21 09/27/21 03/27/21 History release budesonide-formoterol HFA 160 2 puff INHALATION Q12H 03/27/21 09/27/21 03/27/21 History mcg-4.5 mcg/actuation aerosol inhaler (Symbicort) ipratropium 0.5 mg-albuterol 3 mg 3 ml INHALATION DAILY@0800 03/27/21 09/27/21 03/27/21 History (2.5 mg base)/3 mL nebulization soln plecanatide 3 mg tablet (Trulance) 3 mg PO DAILY 03/27/21 09/27/21 Unknown History polyethylene glycol 3350 17 17 g PO DAILY PRN 03/27/21 09/27/21 03/27/21 History gram/dose oral powder (Miralax) ubrogepant 100 mg tablet (Ubrelvy) See Rx Instructions .ROUTE 05/22/21 09/27/21 Unknown Rx .COMPLEX #10 tab chlorthalidone 50 mg tablet 25 mg PO DAILY@0800 #0 tab 06/17/21 09/27/21 03/27/21 Rx losartan 100 mg tablet 50 mg PO DAILY@0800 #0 tab 06/17/21 09/27/21 03/26/21 Rx ASO #1 ea 07/26/21 09/27/21 Unknown Rx diclofenac sodium 1 % topical gel 4 g TOPICAL QID #100 g 08/03/21 09/27/21 Unknown Rx (Voltaren Arthritis Pain) fluoxetine 40 mg capsule (Prozac) 40 mg PO QAM #30 cap 08/13/21 09/27/21 Unknown Rx night splint to left #1 ea 08/20/21 09/27/21 Unknown Rx prazosin 2 mg capsule 4 mg PO .qhs #60 cap 09/17/21 09/27/21 Unknown Rx clonazepam 0.5 mg tablet 0.5 mg PO BID PRN #30 tab 09/18/21 09/27/21 Unknown Rx quetiapine 50 mg tablet,extended 50 mg PO .q hs #60 tab 10/01/21 10/01/21 Unknown Rx release 24 hr cholecalciferol (vitamin D3) 1,250 50,000 unit PO .qweek #14 cap 10/09/21 Unknown Rx mcg (50,000 unit) capsule celecoxib 100 mg capsule (Celebrex) 100 mg PO BID #20 cap 11/06/21 Unknown Rx dexamethasone 6 mg tablet 6 mg PO DAILY #7 tab 11/06/21 Unknown Rx (Decadron) ondansetron HCl 4 mg tablet 4 mg PO Q6H PRN #15 tab 11/16/21 Unknown Rx (Zofran) Allergies Allergy/AdvReac Type Severity Reaction Status Date / Time No Known Allergies Allergy Verified 09/27/21 08:43 PFSH Acute PFSH: Medical History Abnormal reflex COPD (chronic obstructive pulmonary disease) HTN (hypertension) Neck pain Psychiatric care Psychiatric care Surgical History History of cholecystectomy Hx of section Hx of hysterectomy Family History Family/Other Cancer Diabetes Father Diabetes Hyperlipidemia Hypertension Stroke Mother Hypertension Stroke CAD (coronary artery disease) Rheumatoid arthritis Social History Second hand smoke exposure: Yes Alcohol intake: never History of recent travel: No Vitals/I&O/Wt Last Vital Signs Temp 98.1 F 11/17/21 19:02 Pulse 82 11/17/21 23:28 Resp 18 11/17/21 23:28 BP 111/64 11/17/21 21:22 Pulse Ox 94 11/17/21 23:28 Physical Exam Const: COMMON NORMALS: no acute distress and patient oriented x3 GENERAL APPEARANCE: cooperative, well kempt and well developed HENMT: COMMON NORMALS: normocephalic and Normal external nose present HEAD & SCALP: normocephalic FACE & SINUS: normal facial exam NOSE: Normal external nose present Eye: COMMON NORMALS: Equal, round and reactive pupils present, EOMs intact bilaterally, conjunctivae normal and no scleral icterus CONJUNCTIVA: Yes conjunctivae normal PUPIL: Yes Equal, round and reactive pupils present Neck/C-Spine: COMMON NORMALS: full ROM, no JVD and Thyroid normal THYROID: Thyroid normal Lymph: LYMPHATIC: no lymphadenopathy noted Chest: COMMONS NORMALS: normal inspection of the chest Resp: COMMON NORMALS: normal respiratory effort and No retractions EFFORT & INSPECTION: Yes able to speak in complete sentences AUSCULTATION: wheezes Cardio: COMMON NORMALS: regular rate, regular rhythm, S1 normal heart sound present, S2 normal heart sound present, No murmurs present (Cardio) and Peripheral pulses 2+ throughout RATE: regular rate RHYTHM: regular rhythm HEART SOUNDS: S1 normal heart sound present and S2 normal heart sound present PERIPHERAL PULSES: Peripheral pulses 2+ throughout GI: COMMON NORMALS: Normal to inspection, nondistended, normoactive bowel sounds present, Soft to palpation, non-tender and No hepatosplenomegaly present PALPATION: Yes Soft to palpation and Yes No hepatosplenomegaly present : COMMON NORMALS: Yes no CVA tenderness Extremity: COMMON NORMALS: normal to inspection, full ROM, capillary refill normal, no calf tenderness and no pedal edema Neuro: COMMON NORMALS: patient oriented x3, CN's II-XII intact bilaterally, moves all extremities, no focal motor deficits and no sensory deficits noted MENINGEAL SIGNS: Yes no meningeal signs Psych: COMMON NORMALS: mental status grossly normal, Normal thought process present, cooperative and speech normal APPEARANCE: Yes well kempt SPEECH: Yes normal speech THOUGHT PROCESS: Normal thought process present Skin: COMMON NORMALS: turgor normal and no jaundice GENERAL SKIN EXAM: turgor normal Data : 11/17/21 20:32 11/17/21 20:32 Micro: Microbiology 11/17/21 20:20 Blood Culture - Preliminary Blood SPECIMEN COLLECTED 11/17/21 20:32 Blood Culture - Preliminary Blood SPECIMEN COLLECTED A&P Assessment and plan (1) Pneumonia due to COVID-19 virus: Status: Acute (2) Partial obstruction of small intestine: Status: Acute (3) Major depressive disorder, recurrent severe without psychotic features: Status: Chronic (4) IBS (irritable bowel syndrome): Status: Acute Plan COVID-[address] angiogram of the chest shows bilateral groundglass opacities Complains of shortness of breath Plan -Oxygen therapy protocol -Remdesivir day 1 of 5 -Decadron day 1 of 10 -Vitamin C, zinc, vitamin D - ipratropium budesonide -Follow urine cultures, blood cultures, sputum cultures, urine bacterial antigens -Incentive spirometer, flutter valve -Full code Lovenox for DVT prophylaxis UTI, follow urine culture, Rocephin Partial small bowel obstruction -Has complaints of diarrhea -Stool studies -Clear liquid diet -Serial abdominal exams Dehydration, IV fluids Hypokalemia, will be replaced in the ER Attestations Medical Necessity Statement*: Patient requires hospitalization, inpatient, greater than 2 midnights, COVID-19 pneumonia, partial SBO, dehydration Coding Level of Care Code Acute Behavioral Health Aide for Chg Fwd History Comprehensive Exam Comprehensive Medical Decision Making Moderate Complexity Diagnoses Pneumonia due to COVID-19 virus U07.1; J12.82 Partial obstruction of small intestine K56.600 Major depressive disorder, recurrent severe without psychotic features F33.2 IBS (irritable bowel syndrome) K58.9 Time Spent (min) 55
[2021-11-18] MEDS: morphine 4 mg/mL SDV 1 mL IVP (01:10)
[2021-11-18] MEDS: dexamethasone 10 mg/mL INJ 6 MG IVP (04:00)
[2021-11-18] MEDS: enoxaparin 40 mg/0.4 mL Syringe SUBCUT (04:01)
[2021-11-18] MEDS: cefTRIAXone 1,000 MG in sodium chloride 0.9% (plus) 50 ML 100 MG IV (04:01)
[2021-11-18] MEDS: ipratropium-albuterol 3 mL Neb INHALATION ×4 (04:45→21:29)
[2021-11-18] MEDS: dextrose 5%-ns + KCl 20 20 MEQ/1,000 ML BAG 100 MEQ IV ×2 (04:55→15:24)
[2021-11-18] MEDS: remdesivir 200 MG in sodium chloride 0.9% (100 ml) 60 ML 100 MG IV (04:56)
[2021-11-18] MEDS: fluoxetine 20 mg Capsule 40 MG PO (08:00)
[2021-11-18] MEDS: chlorthalidone 25 mg Tablet PO (08:00)
[2021-11-18] MEDS: losartan 50 mg Tablet PO (08:00)
[2021-11-18] MEDS: budesonide 0.5 mg/2 mL Neb INHALATION ×2 (08:30→21:29)
[2021-11-18 08:34] LABS: NT Pro B Type Natriuretic Pept 62 pg/mL (0-125); Thyroid Stimulating Hormone 0.53 uIU/mL (0.27-4.20)
[2021-11-18 09:22] LABS: Estmated Average Glucose 114; Hemoglobin A1C 5.6 % (4.0-6.0)
[2021-11-18] MEDS: aspirin 81 mg Chew Tablet PO (09:53)
[2021-11-18] MEDS: famotidine 20 mg Tablet PO ×2 (09:53→19:10)
[2021-11-18] MEDS: ascorbic acid 500 mg Tablet PO ×2 (09:53→19:10)
[2021-11-18] MEDS: zinc gluconate 50 mg Tablet PO (09:53)
--- NOTE | 2021-11-18 09:57 | PM.PN ---
Subjective Subjective: Interval history: She complains of GI upset and headache. She does not complain of dyspnea per se. Medications: Reviewed: Yes Medication Review Details: She is on day 1 of remdesivir and Decadron. Vitals/I&O/Wt Last Vital Signs Temp 98.1 F 11/17/21 19:02 Pulse 80 11/18/21 08:43 Resp 17 11/18/21 08:28 BP 124/85 11/18/21 08:00 Pulse Ox 95 11/18/21 08:28 11/17/21 11/18/21 11/18/21 22:59 06:59 14:59 Intake Total 1110 / 1110 Balance 1110 / 1110 Physical Exam Const: COMMON NORMALS: no acute distress, average body habitus, patient oriented x3, no limitations, alert and well nourished Neck/C-Spine: COMMON NORMALS: no JVD Resp: OTHER: Her lungs are a bit coarse and wheezy, but not overly. Cardio: COMMON NORMALS: no JVD, regular rate, regular rhythm, S1 normal heart sound present, S2 normal heart sound present, No gallops present (Cardio), No clicks present (Cardio), No murmurs present (Cardio), No rub (Cardio) and Peripheral pulses 2+ throughout RATE: regular rate RHYTHM: regular rhythm HEART SOUNDS: S1 normal heart sound present and S2 normal heart sound present PERIPHERAL PULSES: Peripheral pulses 2+ throughout GI: COMMON NORMALS: Normal to inspection, nondistended, normoactive bowel sounds present, Soft to palpation, non-tender, No hepatosplenomegaly present, no masses and no bruits PALPATION: Yes Soft to palpation and Yes No hepatosplenomegaly present Neuro: COMMON NORMALS: patient oriented x3 SENSORIUM/ORIENTATION: Yes alert Data : 11/17/21 20:32 11/17/21 20:32 Micro: Microbiology 11/17/21 20:20 Blood Culture - Preliminary Blood SPECIMEN COLLECTED 11/17/21 20:32 Blood Culture - Preliminary Blood SPECIMEN COLLECTED A&P Assessment and plan (1) Pneumonia due to COVID-19 virus: Continue Decadron remdesivir and pulmonary toilet. Status: Acute (2) COVID-19: Status: Acute (3) 2019 novel coronavirus-infected pneumonia (NCIP): Status: Acute Attestations Medical Necessity Statement*: Given her hypoxemia, and comorbidities, she will spend 2 midnights with us for her Covid pneumonia. 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
--- NOTE | 2021-11-18 11:31 | PC.NURSE ---
PATIENT RESTING IN BED. PATIENT COMPLAINT OF PAIN IN ABDOMEN RATING 9/10.
[2021-11-18] MEDS: ondansetron 2 mg/ML SDV 2 mL 4 MG IVP (11:38)
--- NOTE | 2021-11-18 11:41 | PC.NURSE ---
ZOFRAN PROVIDED FOR STOMACH DISCOMFORT.
[2021-11-18] MEDS: prazosin 1 mg Capsule 4 MG PO (20:59)
[2021-11-18] MEDS: quetiapine XR (24HR) 50 mg Tablet PO (20:59)
[2021-11-18] MEDS: amlodipine 5 mg Tablet PO (20:59)
[2021-11-19] VITALS (12 sets, daily range): BP systolic 99–162; BP diastolic 65–80; PULSE 72–104; RESP 16–22; TEMP 36.6–37.7; O2SAT 93–98
[2021-11-19] MEDS: dextrose 5%-ns + KCl 20 20 MEQ/1,000 ML BAG 100 MEQ IV ×2 (02:10→15:33)
[2021-11-19] MEDS: ipratropium-albuterol 3 mL Neb INHALATION ×4 (02:18→19:39)
[2021-11-19] MEDS: dexamethasone 10 mg/mL INJ 6 MG IVP (04:02)
[2021-11-19] MEDS: cefTRIAXone 1,000 MG in sodium chloride 0.9% (plus) 50 ML 100 MG IV (04:02)
[2021-11-19] MEDS: enoxaparin 40 mg/0.4 mL Syringe SUBCUT (04:02)
[2021-11-19] MEDS: remdesivir 100 MG in sodium chloride 0.9% (100 ml) 80 ML IV (05:35)
[2021-11-19] MEDS: fluoxetine 20 mg Capsule 40 MG PO (05:35)
[2021-11-19 06:01] LABS: Basophils % 0.2 %; Hematocrit 36.1 % (37.0-47.0); Hemoglobin 10.9 g/dL (11.5-15.3); Lymphocytes % 17.1 %; Mean Corpuscular HGB Conc 30.2 g/dL (30.0-36.0); Mean Corpuscular Hemoglobin 27.6 pg (28.0-34.0); Mean Corpuscular Volume 91.4 fl (81-99); Mean Platelet Volume 9.6 fL (7.4-10.4); Monocytes # 0.4 10^3/uL (0.2-0.9); Monocytes % 7.9 %; Neutrophils # 4.15 10^3/uL (1.8-7.7); Neutrophils % 74.4 %; Nucleated Red Blood Cells % 0 %; Platelet Count 336 10^3/cmm (130-400); Red Blood Count 3.95 10^6/uL (4.1-5.3); Red Cell Distribution Width 13.8 % (12.1-15.1); White Blood Count 5.6 10^3/uL (4.0-10.0)
[2021-11-19 06:24] LABS: Alanine Aminotransferase 31 U/L (0-33); Albumin Level 3.3 g/dL (3.5-5.2); Alkaline Phosphatase 149 IU/L (35-105); Anion Gap 11.6 (5-19); Aspartate Amino Transferase 18 U/L (0-32); Blood Urea Nitrogen 5 mg/dL (6-20); Calcium 7.6 mg/dL (8.5-10.5); Carbon Dioxide 27 mmol/L (22-29); Chloride 105 mmol/L (98-107); Globulin 2.5 g/dL (1.3-4.6); Glomerular Filtration Rate 169.7 mL/min (90-130); Glucose 127 mg/dL (65-115); Magnesium 2.3 mg/dL (1.7-2.3); Osmolality Calculated 289 mOsm/kg (285-295); Phosphorus 3.1 mg/dL (2.5-4.5); Potassium 3.6 mmol/L (3.5-5.1); Sodium 140 mmol/L (136-145); Total Bilirubin 0.5 mg/dL (0.15-1.2); Total Protein 5.8 g/dL (6.6-8.7)
[2021-11-19] MEDS: budesonide 0.5 mg/2 mL Neb INHALATION ×2 (07:57→19:39)
--- NOTE | 2021-11-19 08:34 | USCV_ITS ---
Nani Pyror Age: 50 Gender: F : 1970 Exam Date: 11/19/2021 09:34 Ordering Phys: Martín Agarwal MD Technologist: DIONI [place] [facility] [place]: elevated d dimer PROCEDURES: Venous duplex imaging was performed in bilateral lower extremities. The following venous structures were evaluated: common femoral vein, profunda vein, proximal portion of the greater saphenous vein, superficial femoral vein, and the popliteal vein. In addition, the posterior tibial and peroneal trunk were evaluated. Serial compression, augmentation maneuvers, and spectral Doppler flow evaluation were performed. FINDINGS: Normal 2-D Doppler and augmentation and compressibility throughout the lower extremity venous structures. Additional imaging through the proximal calf veins also reveals no thrombus. Limited evaluation of the greater saphenous vein is patent with no thrombus. CONCLUSIONS No DVT bilateral lower extremities. Dr. Tiffanie Zapata DO (Electronically Signed) Final Date: 19 November 2021 13:20 S
[2021-11-19 09:28] LABS: C Reactive Protein 7.8 mg/L (0.0-4.9)
--- NOTE | 2021-11-19 10:29 | PM.PN ---
Subjective Subjective: Interval history: Nani reports she hurts all over. She feels short of breath. She does not feel very hungry. Medications: Reviewed: Yes Vitals/I&O/Wt Last Vital Signs Temp 100 F H 11/19/21 04:00 Pulse 89 11/19/21 08:05 Resp 16 11/19/21 08:05 BP 162/80 11/19/21 04:00 Pulse Ox 94 11/19/21 08:05 11/18/21 11/19/21 11/19/21 22:59 06:59 14:59 Intake Total 120 / 1120 1130 / 2250 Balance 120 / 1120 1130 / 2250 Physical Exam Narrative: EXAM NARRATIVE: General exam is a white female, who does not appear to be in any distress. Neck is supple Cardiovascular regular rate and rhythm, no murmur Lungs some scattered rales Abdomen is soft, positive bowel sounds Extremities no cyanosis clubbing or edema Data : 11/19/21 05:38 11/19/21 05:38 Micro: Microbiology 11/18/21 08:20 Urine Culture - Preliminary Urine,Clean Catch 11/17/21 20:20 Blood Culture - Preliminary Blood NEGATIVE TO DATE 11/17/21 20:32 Blood Culture - Preliminary Blood NEGATIVE TO DATE 11/18/21 08:20 Bacterial Antigens - Final Urine,Clean Catch 11/18/21 08:20 Legionella Urinary Antigen - Final Urine Catheterized A&P Assessment and plan (1) Pneumonia due to COVID-19 virus: CT angiogram is negative for pulmonary embolism Continue remdesivir, dexamethasone Wean oxygen as tolerated Incentive spirometry, Acapella Lovenox for DVT prophylaxis Prone is much as possible Pulmonary toilet Rocephin empirically Status: Acute (2) COPD (chronic obstructive pulmonary disease): No evidence of exacerbation. Pulmonary toilet as needed Status: Acute (3) HTN (hypertension): Continue home medications Status: Acute Qualifiers: Hypertension type: essential hypertension Qualified Code(s): I10 - Essential (primary) hypertension Plan Concern of small bowel obstruction. Patient having loose stools. No clinical evidence of obstruction. On Trulance which may cause symptoms. Will discontinue this currently. When improved, advance diet. Elevated dimer. Check venous duplex Concern of UTI on admission. She has too numerous to count squamous epithelial cells. This is contaminated. Attestations Medical Necessity Statement*: Needs continued hospitalization for antiretroviral, treatment for Covid 19 pneumonia. 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
[2021-11-19] MEDS: losartan 50 mg Tablet PO (10:46)
[2021-11-19] MEDS: chlorthalidone 25 mg Tablet PO (10:47)
[2021-11-19] MEDS: aspirin 81 mg Chew Tablet PO (10:47)
[2021-11-19] MEDS: famotidine 20 mg Tablet PO ×2 (10:47→19:21)
[2021-11-19] MEDS: acetaminophen 325 mg Tablet 650 MG PO ×2 (15:45→22:12)
[2021-11-19] MEDS: prazosin 1 mg Capsule 4 MG PO (22:01)
[2021-11-19] MEDS: quetiapine XR (24HR) 50 mg Tablet PO (22:01)
[2021-11-19] MEDS: amlodipine 5 mg Tablet PO (22:01)
[2021-11-20] VITALS (11 sets, daily range): BP systolic 112–128; BP diastolic 69–76; PULSE 68–96; RESP 15–19; TEMP 36.6–36.8; O2SAT 90–99
[2021-11-20] MEDS: dextrose 5%-ns + KCl 20 20 MEQ/1,000 ML BAG 100 MEQ IV ×2 (01:42→14:30)
[2021-11-20] MEDS: ipratropium-albuterol 3 mL Neb INHALATION ×4 (02:54→19:55)
[2021-11-20] MEDS: enoxaparin 40 mg/0.4 mL Syringe SUBCUT (03:45)
[2021-11-20] MEDS: dexamethasone 10 mg/mL INJ 6 MG IVP (03:45)
[2021-11-20] MEDS: cefTRIAXone 1,000 MG in sodium chloride 0.9% (plus) 50 ML 100 MG IV (03:46)
[2021-11-20 05:42] LABS: Basophils % 0.3 %; Hematocrit 36.9 % (37.0-47.0); Hemoglobin 10.8 g/dL (11.5-15.3); Lymphocytes # 1.1 10^3/uL (0.8-4.8); Lymphocytes % 15.4 %; Mean Corpuscular HGB Conc 29.3 g/dL (30.0-36.0); Mean Corpuscular Hemoglobin 27.9 pg (28.0-34.0); Mean Corpuscular Volume 95.3 fl (81-99); Mean Platelet Volume 9.5 fL (7.4-10.4); Monocytes # 0.5 10^3/uL (0.2-0.9); Monocytes % 7.8 %; Neutrophils # 5.21 10^3/uL (1.8-7.7); Neutrophils % 76.2 %; Nucleated Red Blood Cells % 0 %; Platelet Count 341 10^3/cmm (130-400); Red Blood Count 3.87 10^6/uL (4.1-5.3); Red Cell Distribution Width 14.2 % (12.1-15.1); White Blood Count 6.8 10^3/uL (4.0-10.0)
[2021-11-20] MEDS: fluoxetine 20 mg Capsule 40 MG PO (05:52)
[2021-11-20] MEDS: remdesivir 100 MG in sodium chloride 0.9% (100 ml) 80 ML IV (05:52)
[2021-11-20 05:57] LABS: Alanine Aminotransferase 25 U/L (0-33); Alkaline Phosphatase 128 IU/L (35-105); Anion Gap 10.5 (5-19); Aspartate Amino Transferase 10 U/L (0-32); Blood Urea Nitrogen 6 mg/dL (6-20); Calcium 7.8 mg/dL (8.5-10.5); Carbon Dioxide 26 mmol/L (22-29); Chloride 105 mmol/L (98-107); Globulin 2.8 g/dL (1.3-4.6); Glomerular Filtration Rate 131.1 mL/min (90-130); Glucose 113 mg/dL (65-115); Magnesium 2.1 mg/dL (1.7-2.3); Osmolality Calculated 284 mOsm/kg (285-295); Potassium 3.5 mmol/L (3.5-5.1); Sodium 138 mmol/L (136-145); Total Bilirubin 0.4 mg/dL (0.15-1.2); Total Protein 5.8 g/dL (6.6-8.7)
[2021-11-20] MEDS: budesonide 0.5 mg/2 mL Neb INHALATION ×2 (09:27→19:55)
[2021-11-20] MEDS: famotidine 20 mg Tablet PO (09:47)
[2021-11-20] MEDS: losartan 50 mg Tablet PO (09:47)
[2021-11-20] MEDS: chlorthalidone 25 mg Tablet PO (09:47)
[2021-11-20] MEDS: aspirin 81 mg Chew Tablet PO (09:47)
--- NOTE | 2021-11-20 11:35 | PM.PN ---
Subjective Subjective: Interval history: Nani reports her belly hurts. She has not had a bowel movement. She has passing gas. She would like to try to eat something other than a clear liquid diet. She has not had any vomiting. Medications: Reviewed: Yes Medication Review Details: She is on day 1 of remdesivir and Decadron. Vitals/I&O/Wt Last Vital Signs Temp 98.3 F 11/20/21 07:27 Pulse 78 11/20/21 09:35 Resp 18 11/20/21 09:35 BP 123/76 11/20/21 09:47 Pulse Ox 99 11/20/21 09:35 11/19/21 11/20/21 11/20/21 22:59 06:59 14:59 Intake Total 60 / 1060 1130 / 2190 Balance 60 / 1060 1130 / 2190 Physical Exam Narrative: EXAM NARRATIVE: General exam is a white female, who does not appear to be in any distress. Neck is supple Cardiovascular regular rate and rhythm, no murmur Lungs some scattered rales Abdomen is soft, positive bowel sounds, subjective tenderness. Extremities no cyanosis clubbing or edema Data : 11/20/21 05:09 11/20/21 05:09 Micro: Microbiology 11/18/21 08:20 Urine Culture - Final Urine,Clean Catch A&P Assessment and plan (1) Pneumonia due to COVID-19 virus: CT angiogram is negative for pulmonary embolism Continue remdesivir, dexamethasone Wean oxygen as tolerated. She has now just been weaned down to 1 L. Hopefully this can be discontinued. Incentive spirometry, Acapella Lovenox for DVT prophylaxis Prone is much as possible Pulmonary toilet Rocephin empirically Status: Acute (2) COPD (chronic obstructive pulmonary disease): No evidence of exacerbation. Pulmonary toilet as needed Status: Acute (3) HTN (hypertension): Continue home medications Status: Acute Qualifiers: Hypertension type: essential hypertension Qualified Code(s): I10 - Essential (primary) hypertension Plan Concern of small bowel obstruction. Patient having loose stools on admission No clinical evidence of obstruction. Passing flatus. On Trulance which may cause symptoms. Advance diet. Protonix p.o. twice daily Elevated dimer. Venous duplex negative. Repeat dimer tomorrow Concern of UTI on admission. She has too numerous to count squamous epithelial cells. This is contaminated. Attestations Medical Necessity Statement*: Needs continued hospital stay for antiviral, IV dexamethasone secondary to Covid pneumonia as well as advancing diet secondary to abdominal pain and previous concerns of small bowel obstruction. 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
[2021-11-20] MEDS: guaiFENesin-dextromethorphan UDC 10 mL 5 ML PO (17:22)
[2021-11-20] MEDS: acetaminophen 325 mg Tablet 650 MG PO (18:32)
[2021-11-20] MEDS: pantoprazole DR 40 mg Tablet PO (18:32)
[2021-11-20] MEDS: prazosin 1 mg Capsule 4 MG PO (20:33)
[2021-11-20] MEDS: quetiapine XR (24HR) 50 mg Tablet PO (20:33)
[2021-11-20] MEDS: amlodipine 5 mg Tablet PO (21:17)
[2021-11-21] VITALS (12 sets, daily range): BP systolic 98–125; BP diastolic 67–77; PULSE 66–114; RESP 16–20; TEMP 36.3–37.2; O2SAT 92–97
[2021-11-21] MEDS: dextrose 5%-ns + KCl 20 20 MEQ/1,000 ML BAG 100 MEQ IV (00:16)
[2021-11-21] MEDS: ipratropium-albuterol 3 mL Neb INHALATION ×3 (02:55→14:23)
[2021-11-21] MEDS: cefTRIAXone 1,000 MG in sodium chloride 0.9% (plus) 50 ML 100 MG IV (03:40)
[2021-11-21] MEDS: dexamethasone 10 mg/mL INJ 6 MG IVP (03:40)
[2021-11-21] MEDS: enoxaparin 40 mg/0.4 mL Syringe SUBCUT (03:40)
[2021-11-21] MEDS: fluoxetine 20 mg Capsule 40 MG PO (05:11)
[2021-11-21] MEDS: remdesivir 100 MG in sodium chloride 0.9% (100 ml) 80 ML IV (05:11)
[2021-11-21 06:05] LABS: Basophils % 0.1 %; Hematocrit 37.7 % (37.0-47.0); Hemoglobin 11.6 g/dL (11.5-15.3); Mean Corpuscular HGB Conc 30.8 g/dL (30.0-36.0); Mean Corpuscular Volume 90.8 fl (81-99); Mean Platelet Volume 9.6 fL (7.4-10.4); Monocytes # 0.5 10^3/uL (0.2-0.9); Monocytes % 7.6 %; Neutrophils # 5.18 10^3/uL (1.8-7.7); Neutrophils % 76.7 %; Nucleated Red Blood Cells % 0 %; Platelet Count 385 10^3/cmm (130-400); Red Blood Count 4.15 10^6/uL (4.1-5.3); Red Cell Distribution Width 14.2 % (12.1-15.1); White Blood Count 6.8 10^3/uL (4.0-10.0)
--- NOTE | 2021-11-21 06:16 | XR_ITS ---
WS: [id number] XR abdomen 1V* [id number] REASON FOR EXAM: abdominal pain FINDINGS: Unremarkable bowel gas pattern. No free air or retroperitoneal air. No urinary tract calculi. No mass identified. XR/XR abdomen 1V* [id number] IMPRESSION: No acute abnormality.
[2021-11-21 06:28] LABS: Alanine Aminotransferase 29 U/L (0-33); Albumin Level 3.3 g/dL (3.5-5.2); Alkaline Phosphatase 121 IU/L (35-105); Anion Gap 14.8 (5-19); Aspartate Amino Transferase 22 U/L (0-32); Blood Urea Nitrogen 6 mg/dL (6-20); Carbon Dioxide 24 mmol/L (22-29); Chloride 104 mmol/L (98-107); Globulin 2.5 g/dL (1.3-4.6); Glomerular Filtration Rate 131.1 mL/min (90-130); Glucose 118 mg/dL (65-115); Osmolality Calculated 287 mOsm/kg (285-295); Potassium 3.8 mmol/L (3.5-5.1); Sodium 139 mmol/L (136-145); Total Bilirubin 0.4 mg/dL (0.15-1.2); Total Protein 5.8 g/dL (6.6-8.7)
[2021-11-21 06:30] LABS: D Dimer >= 20.00 ug/mIFEU (0-0.59)
[2021-11-21] MEDS: FUROsemide 10 mg/mL SDV 2mL 20 MG IVP (06:38)
[2021-11-21] MEDS: budesonide 0.5 mg/2 mL Neb INHALATION (09:00)
[2021-11-21] MEDS: pantoprazole DR 40 mg Tablet PO ×2 (09:04→18:09)
[2021-11-21] MEDS: aspirin 81 mg Chew Tablet PO (09:04)
[2021-11-21] MEDS: chlorthalidone 25 mg Tablet PO (09:06)
[2021-11-21] MEDS: losartan 50 mg Tablet PO (09:06)
--- NOTE | 2021-11-21 10:18 | CT_ITS ---
WS: [id number] CTA OF THE CHEST WITH PULMONARY EMBOLISM PROTOCOL TECHNIQUE: High-resolution contrast enhanced CTA of the chest with coronal and sagittal reformatted i mirtas with pulmonary embolism protocol. MIP images are also reviewed. CLINICAL INFORMATION: elevated dimer COMPARISON: CT November 17, 2021 DLP: 524.[address] scans at [facility] use at least one of these dose optimization techniques: automated e xposure control; mA and/or kV adjustment per patient size (includes targeted exams where dose is matc hed to clinical indication); or iterative reconstruction. FINDINGS: Proximal main pulmonary arteries are normal. No evidence of pulmonary embolus. Distal vessels not wel l evaluated. Some images degraded by breathing artifact and beam hardening from body habitus. Hazy peripheral groundglass infiltrates in the bilateral lower lobes and left upper lobe similar in a ppearance to November 17, 2021. Some areas appears slightly improved. No progressive infiltrates. Normal caliber thoracic aorta. No mediastinal or hilar lymphadenopathy. Cardiomegaly. Adrenal glands are normal. Hepatomegaly. Prior cholecystectomy. Normal GE junction. Celiac and SMA appear patent pro ximally. CT/CT angio chest PE protcl [id number] IMPRESSION: 1. No evidence of pulmonary embolus. Distal vessels are not well evaluated. So me images are degraded due to body habitus and breathing artifact. 2. Slight improvement in the hazy bilateral lower lobe and left upper lobe vanessa undglass pulmonary infiltrates compatible with Covid 19 pneumonia. 3. Partially visualized hepatomegaly. 4. No other significant changes compared to previous.
[2021-11-21] MEDS: iohexol 350 mg/mL 100 mL Btl IV (14:56)
--- NOTE | 2021-11-21 16:24 | PM.DCS ---
Discharge Providers Date of Admission: 11/17/21 23:33 Date of Discharge: November 21, 2021 Attending Provider at Admission: Keaton Potts MD Attending Provider at Discharge: Martín Agarwal MD Primary Care Provider: Alpesh Garcia MD Diagnoses at Discharge Discharge Diagnosis (1) Pneumonia due to COVID-19 virus: Status: Acute (2) COPD (chronic obstructive pulmonary disease): Status: Acute (3) HTN (hypertension): Status: Acute Qualifiers: Hypertension type: essential hypertension Qualified Code(s): I10 - Essential (primary) hypertension Reason for Visit Reason for Visit: COVID +, SOB Hospital Course Hospital Course Nani is a 50-year-old white female who presented to the hospital with loose stools, fatigue, nausea, shortness of breath. She tested positive for Covid on November 08, 2009 days prior to admission. On evaluation she was diagnosed with Covid 19 pneumonia, possible partial small bowel obstruction although she was still having bowel movements. CT angiogram did not demonstrate any pulmonary embolism. She was placed on remdesivir, and dexamethasone. There was concern for UTI and she was maintained on Rocephin. Throughout her hospital course she improved. She eventually tapered off oxygen. Intake was gradually increased which she tolerated well. She continued to have some loose stools. She has IBS and was on IBS constipation variant medication which could cause loose stools. This was stopped shortly into her hospital course. Dimer was monitored intermittently and was greater than 20. This prompted a venous duplex which was negative for DVT. Repeat CTA was performed which demonstrated improved COVID pneumonia, no pulmonary embolism. Secondary to her significant improvement, not needing oxygen, able to tolerate p.o. intake she was discharged on November 21. Secondary to markedly elevated D-dimer greater than 20 we discussed the risks and benefits of anticoagulation with Eliquis for 6 weeks. Pelvic DVT could not be excluded. After shared decision making she agreed to proceed with this treatment, monitoring closely for any bleeding. Ultimately urine culture did not grow organism and she will not need an antibiotic on discharge. She will follow-up with her primary care provider in 3 to 5 days, sooner for any concerns. Physical Exam Narrative: EXAM NARRATIVE: General exam no distress Neck is supple Cardiovascular regular rate and rhythm Lungs clear Abdomen is soft Extremities no cyanosis clubbing or edema Discharge Data Studies Completed and Pending Completed Studies During Hospitalization Category Date Time Status CTA chest CT abdomen pelvis [CT angio chest w abd pel w Cat Scan 11/17/21 21:36 Completed con] Urgent CTA chest [CT angio chest PE protcl [id number]] Routine Cat Scan 11/21/21 10:18 Completed XR abdomen 1V* [id number] Routine Exams 11/21/21 06:16 Completed XR chest 1V portable [id number] Stat Exams 11/17/21 20:39 [place] [id number] Routine Ultrasound 11/19/21 08:34 Completed Pending at discharge Category Date Time Status Blood Culture Stat Lab 11/17/21 20:20 Results Clostridioides Difficile PCR Routine Lab 11/18/21 02:49 Ordered Enteric Bacterial Panel by PCR Routine Lab 11/18/21 02:49 Ordered Enteric Parasite Panel by PCR Routine Lab 11/18/21 02:49 Ordered Immunochemical Fecal OCB Routine Lab 11/18/21 02:49 Ordered Lactoferrin Routine Lab 11/18/21 02:49 Ordered Sputum Culture and Gram Stain Stat Lab 11/18/21 00:38 Uncollected Radiology Impressions Chest X-Ray 11/17/21 20:39 IMPRESSION: 1. Bilateral peripheral ground-glass infiltrates in both lungs. This is unchanged from 11/08/2021, and is new when compared to 10/28/2021. 2. Commonly reported imaging features of COVID-19 pneumonia are present. Other processes such as influenza pneumonia and organizing pneumonia, as can be seen with drug toxicity and connective tissue disease, can cause a similar imaging pattern. (Reference: Boy) REFERENCES: Boy Jolly, et al., Rad[employer] Society of [place] Expert Consensus Statement on Reporting Chest CT Findings Related to COVID-19. Endorsed by the Society of Thoracic Radiology, the [place] [employer], and RSNA. Published January 12, 2020. Chest/Abdomen/Pelvis CT 11/17/21 21:36 IMPRESSION: 1. Pulmonary arteries appear unremarkable. No evidence of pulmonary embolism. 2. No evidence of thoracic aortic aneurysm or dissection. 3. Bilateral peripheral ground-glass pulmonary densities noted. Commonly reported imaging features of COVID-19 pneumonia are present. Other processes such as influenza pneumonia and organizing pneumonia, as can be seen with drug toxicity and connective tissue disease, can cause a similar imaging IMPRESSION: 1. Multiple mildly dilated dilated proximal small bowel loops with air-fluid levels. The findings are suggestive of early or partial proximal small bowel obstruction. 2. Diverticulosis of the descending and sigmoid colon. No evidence of acute diverticulitis. 3. No acute abnormality demonstrated of the solid organs. Abdomen X-Ray 11/21/21 06:16 IMPRESSION: No acute abnormality. Chest CTA 11/21/21 10:18 IMPRESSION: 1. No evidence of pulmonary embolus. Distal vessels are not well evaluated. Some images are degraded due to body habitus and breathing artifact. 2. Slight improvement in the hazy bilateral lower lobe and left upper lobe groundglass pulmonary infiltrates compatible with Covid 19 pneumonia. 3. Partially visualized hepatomegaly. 4. No other significant changes compared to previous. Laboratory Results WBC 6.8 10^3/uL (4.0-10.0) 11/21/21 05:21 RBC 4.15 10^6/uL (4.1-5.3) 11/21/21 05:21 Hgb 11.6 g/dL (11.5-15.3) 11/21/21 05:21 Hct 37.7 % (37.0-47.0) 11/21/21 05:21 MCV 90.8 fl (81-99) 11/21/21 05:21 MCH 28.0 pg (28.0-34.0) 11/21/21 05:21 MCHC 30.8 g/dL (30.0-36.0) D 11/21/21 05:21 RDW 14.2 % (12.1-15.1) 11/21/21 05:21 Plt Count 385 10^3/cmm (130-400) 11/21/21 05:21 MPV 9.6 fL (7.4-10.4) 11/21/21 05:21 Neut % (Auto) 76.7 % 11/21/21 05:21 Lymph % (Auto) 15.0 % 11/21/21 05:21 [place] % (Auto) 7.6 % 11/21/21 05:21 Eos % (Auto) 0.0 % 11/21/21 05:21 Baso % (Auto) 0.1 % 11/21/21 05:21 Neut # (Auto) 5.18 10^3/uL (1.8-7.7) 11/21/21 05:21 Lymph # (Auto) 1.0 10^3/uL (0.8-4.8) 11/21/21 05:21 [place] # (Auto) 0.5 10^3/uL (0.2-0.9) 11/21/21 05:21 Eos # (Auto) 0.0 10^3/uL (0.0-0.8) 11/21/21 05:21 Baso # (Auto) 0.0 10^3/uL (0.0-0.1) 11/21/21 05:21 Nucleated RBC % (auto) 0 % 11/21/21 05:21 Nucleated RBCs # 0.0 /100WBC 11/21/21 05:21 D-Dimer >= 20.00 ug/mIFEU (0-0.59) H 11/21/21 05:21 Sodium 139 mmol/L (136-145) 11/21/21 05:21 Potassium 3.8 mmol/L (3.5-5.1) 11/21/21 05:21 Chloride 104 mmol/L (98-107) 11/21/21 05:21 Carbon Dioxide 24 mmol/L (22-29) 11/21/21 05:21 Anion Gap 14.8 (5-19) 11/21/21 05:21 BUN 6 mg/dL (6-20) 11/21/21 05:21 Creatinine 0.5 mg/dL (0.5-0.9) 11/21/21 05:21 GFR Calculation 131.1 mL/min (90-130) H 11/21/21 05:21 Glucose 118 mg/dL (65-115) H 11/21/21 05:21 Estimat Average Glucose 114 11/17/21 20:32 Hemoglobin A1c 5.6 % (4.0-6.0) 11/17/21 20:32 Calculated Osmolality 287 mOsm/kg (285-295) 11/21/21 05:21 Lactic Acid 1.4 mmol/L (0.5-2.2) 11/17/21 20:32 Calcium 9.0 mg/dL (8.5-10.5) 11/21/21 05:21 Phosphorus 3.1 mg/dL (2.5-4.5) 11/19/21 05:38 Magnesium 2.0 mg/dL (1.7-2.3) 11/21/21 05:21 Total Bilirubin 0.4 mg/dL (0.15-1.2) 11/21/21 05:21 AST 22 U/L (0-32) 11/21/21 05:21 ALT 29 U/L (0-33) 11/21/21 05:21 Alkaline Phosphatase 121 IU/L (35-105) H 11/21/21 05:21 C-Reactive Protein 7.8 mg/L (0.0-4.9) H 11/19/21 05:38 NT-Pro-B Natriuret Pep 62 pg/mL (0-125) 11/18/21 07:49 Total Protein 5.8 g/dL (6.6-8.7) L 11/21/21 05:21 Albumin 3.3 g/dL (3.5-5.2) L 11/21/21 05:21 Globulin 2.5 g/dL (1.3-4.6) 11/21/21 05:21 Procalcitonin 0.04 ng/mL (0-0.5) 11/17/21 20:32 TSH 0.53 uIU/mL (0.27-4.20) 11/18/21 07:49 Urine Color Yellow (Yellow) 11/17/21 19:20 Urine Appearance Sl cloudy (CLEAR) A 11/17/21 19:20 Urine pH 7 (5-7) 11/17/21 19:20 Ur Specific [place] 1.010 (1.005-1.030) 11/17/21 19:20 Urine Protein 1+ (Negative) H 11/17/21 19:20 Urine Glucose (UA) Norm (Normal) 11/17/21 19:20 Urine Ketones 1+ (Negative) H 11/17/21 19:20 Urine Blood 2+ (Negative) H 11/17/21 19:20 Urine Nitrate Negative (Negative) 11/17/21 19:20 Urine Bilirubin 1+ (Negative) H 11/17/21 19:20 Urine Urobilinogen 8 mg/dL (Negative) H 11/17/21 19:20 Ur Leukocyte Esterase 2+ (Negative) H 11/17/21 19:20 Urine RBC 10-15 /hpf (0-2) H 11/17/21 19:20 Urine WBC 40-55 /hpf (0-5) H 11/17/21 19:20 Ur Squamous Epith Cells Too numerous to cnt /hpf (0-5) H 11/17/21 19:20 Amorphous Sediment Not Reportable 11/17/21 19:20 Urine Bacteria 4+ /hpf (NONE) H 11/17/21 19:20 Urine Mucus 2+ /hpf 11/17/21 19:20 Influenza Type A Ag Negative (Negative) 11/17/21 20:32 Influenza Type B Ag Negative (Negative) 11/17/21 20:32 Vitals Last Vital Signs Temp 97.3 F L 11/21/21 16:00 Pulse 97 11/21/21 16:00 Resp 18 11/21/21 16:00 BP 120/69 11/21/21 16:00 Pulse Ox 96 11/21/21 16:00 Discharge Plan Discharge Patient Disposition: Home Condition: Stable Prescriptions: New pantoprazole 40 mg Tablet,Delayed Release (Dr/Ec) 40 mg PO BID Qty: 60 0RF Eliquis 5 mg tablet 5 mg PO BID Qty: 74 0RF Rx Instructions: Please take for 6 weeks only. Continued fluoxetine [Prozac] 40 mg capsule 40 mg PO QAM Qty: 30 1RF Rx Instructions: Take one capsule by mouth every morning; stop sertraline (DME) ASO See Rx Instructions .Route .MEDSUPPLY Qty: 1 0RF Rx Instructions: As directed (DME) night splint to left See Rx Instructions .Route .MEDSUPPLY Qty: 1 0RF Rx Instructions: As directed prazosin 2 mg capsule 4 mg PO .qhs Qty: 60 0RF Rx Instructions: Take two capsules daily at bedtime for a total of 4 mg; hold for low BP clonazepam 0.5 mg tablet 0.5 mg PO BID PRN (Reason: anxiety/panic) Qty: 30 1RF Rx Instructions: Take 1/2 to 1 tablet twice daily, if needed for anxiety/panic symptoms quetiapine 50 mg tablet extended release 24 hr 50 mg PO .q hs Qty: 60 0RF Rx Instructions: Take two tablets by mouth at bedtime bupivacaine (PF) 0.25 % (2.5 mg/mL) solution 4 ml intra-articular ONCE Qty: 4 0RF lidocaine (PF) 10 mg/mL (1 %) solution 10 mg intra-articular ONCE Qty: 4 0RF diclofenac sodium [Voltaren Arthritis Pain] 1 % gel 4 g topical QID Qty: 100 0RF Rx Instructions: apply to single knee, ankle, foot; for foot includes sole/toes/top of foot cholecalciferol (vitamin D3) 1,250 mcg (50,000 unit) capsule 50,000 unit PO .qweek Qty: 14 0RF amlodipine 5 mg Tablet 5 mg PO BEDTIME@2200 0RF albuterol sulfate 90 mcg/actuation Hfa Aerosol Inhaler 2 puff INHALATION 6XD PRN (Reason: Shortness Of Breath) 0RF diphenhydramine HCl [Benadryl] 25 mg Capsule 25 mg PO BEDTIME@2200 PRN (Reason: Insomnia) 0RF aspirin 81 mg Tablet,Chewable 81 mg PO DAILY 0RF ipratropium-albuterol 0.5 mg-3 mg(2.5 mg base)/3 mL solution for nebulization 3 ml INHALATION DAILY@0800 0RF polyethylene glycol 3350 [Miralax] 17 gram/dose powder 17 g PO DAILY PRN (Reason: Constipation) 0RF budesonide-formoterol [Symbicort] 160-4.5 mcg/actuation Hfa Aerosol Inhaler 2 puff INHALATION Q12H 0RF Trulance 3 mg tablet 3 mg PO DAILY 0RF celecoxib [Celebrex] 100 mg capsule 100 mg PO BID Qty: 20 0RF chlorthalidone 50 mg Tablet 25 mg PO DAILY@0800 Qty: 0 0RF losartan 100 mg tablet 50 mg PO DAILY@0800 Qty: 0 0RF ondansetron HCl [Zofran] 4 mg tablet 4 mg PO Q6H PRN (Reason: nausea and vomiting) Qty: 15 0RF Discontinued Ubrelvy 100 mg tablet See Rx Instructions .ROUTE .COMPLEX Qty: 10 0RF Dose Instruction: TAKE 1 TABLET BY MOUTH ONCE AT ONSET OF HEADACHE, MAX 1 TABLET IN 24 HOURS Rx Instructions: TAKE 1 TABLET BY MOUTH ONCE AT ONSET OF HEADACHE, MAX 1 TABLET IN 24 HOURS hydroxychloroquine 200 mg Tablet 200 mg PO BID@0800,2200 0RF pantoprazole 40 mg Tablet,Delayed Release (Dr/Ec) 40 mg PO DAILY@0800 0RF dexamethasone [Decadron] 6 mg tablet 6 mg PO DAILY Qty: 7 0RF prednisone 20 mg tablet 20 mg PO BID 0RF Discharge Orders: Discharge Order (Routine); Ordered 11/21/21 Ordered By: Martín Agarwal Referrals: Alpesh Garcia MD [Primary Care Provider] - 4-7 days Discharge Diet: Cardiac Patient Instructions: Pantoprazole (By mouth), Apixaban (By mouth), COVID-19 (Coronavirus Disease 2019) (GEN), Opioid Safety Activity Restrictions/Additional Instructions: Take all medicine as prescribed. Return for any worsening. Gradually increase your activity. Monitor for any blood in your stool black or tarry stools or nosebleeds. You were placed on a blood thinner secondary to high clotting factors in your blood. You should take this for 6 weeks. Discharge Attestations Time Spent in Discharge Care*: greater than 30 min Status at Discharge: Cognitive status at discharge: cognitively intact, Behavioral status at discharge: cooperative, Quality Metrics Clinical Quality Measures [ No reported AMI, CVA or VTE this stay] Coding Level of Care Code Acute Chg FW DC note Diagnoses Pneumonia due to COVID-19 virus U07.1; J12.82 COPD (chronic obstructive pulmonary disease) J44.9 HTN (hypertension) I10 Hypertension type: essential hypertension
[2021-11-21] MEDS: quetiapine XR (24HR) 50 mg Tablet PO (20:39)
[2021-11-21] MEDS: prazosin 1 mg Capsule 4 MG PO (20:39)
[2021-11-21] MEDS: amlodipine 5 mg Tablet PO (21:17)
== END 2021-11-21 23:59 | disposition home or self-care (01) | DRG 177 ==
LOC: ER 23:50 → ER IP 11-18 00:23 → MEDSURG 11-18 16:27
PROVIDERS: Admitting Provider Family Medicine; Emergency Provider Emergency Medicine; PCP Family Medicine; Visit Provider Internal Medicine
DX: U07.1 COVID-19 (principal); J12.82 Pneumonia due to coronavirus disease 2019; J44.0 Chronic obstructive pulmonary disease with (acute) lower respiratory infection; N39.0 Urinary tract infection, site not specified; I82.890 Acute embolism and thrombosis of other specified veins; R93.3 Abnormal findings on diagnostic imaging of other parts of digestive tract; K58.9 Irritable bowel syndrome, unspecified; R10.9 Unspecified abdominal pain; E87.6 Hypokalemia; I10 Essential (primary) hypertension; J39.2 Other diseases of pharynx; E86.0 Dehydration; Z79.899 Other long term (current) drug therapy; Z79.82 Long term (current) use of aspirin; Z77.22 Contact with and (suspected) exposure to environmental tobacco smoke (acute) (chronic)
CPT/HCPCS: 36415; 71045; 71275; 74018; 74177; 80053; 81001; 83036; 83605; 83735; 83880; 84100; 84145; 84443; 85025; 85378; 86140; 86403; 87040; 87086; 87449; 87804; 93005; 93970; 94640; 94660; 96365; 96367; 96372; 96375; 96376; 97161; 97530; 99285; J0696; J1100; J1650; J1940; J2270; J2405; J7030; J7626; Q9967

== ENCOUNTER → 2021-12-17 07:38 | Outpatient (BNVA) | payer MEDICAID, SELFPAY | PROVIDERS: PCP Family Medicine; Visit Provider Counselor Mental Health | DX: F43.12 Post-traumatic stress disorder, chronic (principal); F33.2 Major depressive disorder, recurrent severe without psychotic features; F41.0 Panic disorder [episodic paroxysmal anxiety] | CPT/HCPCS: 90832 ==

== ENCOUNTER → 2021-12-18 07:56 | Outpatient (BNVA) | payer MEDICAID, SELFPAY | PROVIDERS: PCP Family Medicine; Visit Provider Nurse Practitioner Psychiatric/Mental Health | DX: F41.0 Panic disorder [episodic paroxysmal anxiety] (principal); F33.2 Major depressive disorder, recurrent severe without psychotic features; F43.12 Post-traumatic stress disorder, chronic | CPT/HCPCS: 99213 ==

== ENCOUNTER → 2022-01-04 07:44 | Outpatient (BNVA) | payer MEDICAID, SELFPAY | PROVIDERS: PCP Family Medicine; Visit Provider Counselor Mental Health | DX: F41.0 Panic disorder [episodic paroxysmal anxiety] (principal); F33.2 Major depressive disorder, recurrent severe without psychotic features; F43.12 Post-traumatic stress disorder, chronic | CPT/HCPCS: 90837; 90834 ==

== ENCOUNTER 2022-01-08 20:30 | Emergency (ER) | payer MEDICAID, SELFPAY ==
[2022-01-08 20:34] VITALS: BP 200/130; PULSE 90; RESP 18; TEMP 36.6; O2SAT 99; BMI 41.1
--- NOTE | 2022-01-08 20:43 | ED_ITS ---
HPI - Wound/Laceration General: Chief Complaint: Wound/Laceration Stated Complaint: left lac Time Seen by Provider: 01/08/22 20:40 History of Present Illness: 51-year-old female comes in today for complaints of injury to the left index finger. Last night patient was working and sliced the tip of her finger with a knife. Patient caused a skin flap to be present. No damage to the nail was noted. Patient came in today due to intermittent bleeding. Patient appears well. Patient reports no other injuries. Patient states her tetanus shot is up-to-date. Associated symptoms: Denies fever(s) Review of Systems General: Reports: 10 or more systems reviewed and unremarkable except in HPI and below Const: Denies: fever(s) Card: Denies: chest pain Resp: Denies: dyspnea Musc: Reports: extremity pain (Left index finger) Skin/Breast: Reports: new lesions (Laceration distal left index finger) [facility] ED PFSH: Medical History (Updated 01/08/22 @ 20:53 by SHELTON Mason) Abnormal reflex COPD (chronic obstructive pulmonary disease) HTN (hypertension) Neck pain Psychiatric care Psychiatric care Surgical History History of cholecystectomy Hx of section Hx of hysterectomy Family History Family/Other Cancer Diabetes Father Diabetes Hyperlipidemia Hypertension Stroke Mother Hypertension Stroke CAD (coronary artery disease) Rheumatoid arthritis Social History Second hand smoke exposure: Yes Alcohol intake: never History of recent travel: No Physical Exam Const: COMMON NORMALS: alert HENMT: COMMON NORMALS: atraumatic HEAD & SCALP: atraumatic Neck/C-Spine: COMMON NORMALS: full ROM Resp: COMMON NORMALS: normal respiratory effort Cardio: COMMON NORMALS: regular rate and regular rhythm RATE: regular rate RHYTHM: regular rhythm Extremity: LEFT UPPER EXTREMITY: Yes hand & digits (Superficial flap laceration distal left index finger) Left hand and digits: Yes inspection, Yes palpation, Yes ROM and Yes neurovascular exam Neuro: SENSORIUM/ORIENTATION: Yes alert Course Vital Signs: Vital signs: Vital Signs Temperature 97.8 F 01/08/22 20:34 Pulse Rate 90 03/22/22 20:34 Respiratory Rate 18 01/08/22 20:34 Blood Pressure 200/130 01/08/22 20:34 Pulse Oximetry 99 01/08/22 20:34 MDM - Wound/Laceration Medical Decision Making 51-year-old female comes in for evaluation of a skin laceration to her distal left index finger. On exam there is a superficial laceration to the distal tip of the left index finger. Patient has normal cap refill. No bleeding is noted. Normal tendon function range of motion of the finger is noted. Differential diagnosis includes need for prophylaxis tetanus, need for prophylaxis antibiotic, laceration, foreign body. No foreign body is noted. Patient is tetanus is up-to-date. Patient was given Augmentin to cover for prophylaxis antibiotic. Patient reported understanding of care plan need for follow-up or return to the ER. Discharge Plan Discharge Patient Disposition: Home Clinical Impression: Finger laceration Qualifiers: Encounter type: initial encounter Finger: index finger Damage to nail status: without damage Foreign body presence: without foreign body Laterality: left Qualified Code(s): S61.211A - Laceration without foreign body of left index finger without damage to nail, initial encounter Condition: Stable Prescriptions: New amoxicillin-pot clavulanate 875-125 mg tablet 1 tab PO BID Qty: 10 0RF No Action (DME) ASO See Rx Instructions .Route .MEDSUPPLY Qty: 1 0RF Rx Instructions: As directed (DME) night splint to left See Rx Instructions .Route .MEDSUPPLY Qty: 1 0RF Rx Instructions: As directed bupivacaine (PF) 0.25 % (2.5 mg/mL) solution 4 ml intra-articular ONCE Qty: 4 0RF lidocaine (PF) 10 mg/mL (1 %) solution 10 mg intra-articular ONCE Qty: 4 0RF fluoxetine [Prozac] 40 mg capsule 40 mg PO QAM Qty: 30 0RF Rx Instructions: Take one capsule by mouth every morning; stop sertraline prazosin 2 mg capsule 4 mg PO .qhs Qty: 60 0RF Rx Instructions: Take two capsules daily at bedtime for a total of 4 mg; hold for low BP quetiapine 50 mg tablet extended release 24 hr 50 mg PO .q hs Qty: 60 0RF Rx Instructions: Take two tablets by mouth at bedtime clonazepam 0.5 mg tablet 0.5 mg PO BID PRN (Reason: anxiety/panic) Qty: 30 0RF Rx Instructions: Take 1/2 to 1 tablet twice daily, if needed for anxiety/panic symptoms diclofenac sodium [Voltaren Arthritis Pain] 1 % gel 4 g topical QID Qty: 100 0RF Rx Instructions: apply to single knee, ankle, foot; for foot includes sole/toes/top of foot cholecalciferol (vitamin D3) 1,250 mcg (50,000 unit) capsule 50,000 unit PO .qweek Qty: 14 0RF Ubrelvy 100 mg tablet See Rx Instructions .ROUTE .COMPLEX Qty: 10 3RF Dose Instruction: TAKE 1 TABLET BY MOUTH ONCE AT ONSET OF HEADACHE, MAX 1 TABLET IN 24 HOURS Rx Instructions: TAKE 1 TABLET BY MOUTH ONCE AT ONSET OF HEADACHE, MAX 1 TABLET IN 24 HOURS amlodipine 5 mg Tablet 5 mg PO BEDTIME@2200 0RF albuterol sulfate 90 mcg/actuation Hfa Aerosol Inhaler 2 puff INHALATION 6XD PRN (Reason: Shortness Of Breath) 0RF diphenhydramine HCl [Benadryl] 25 mg Capsule 25 mg PO BEDTIME@2200 PRN (Reason: Insomnia) 0RF aspirin 81 mg Tablet,Chewable 81 mg PO DAILY 0RF ipratropium-albuterol 0.5 mg-3 mg(2.5 mg base)/3 mL solution for nebulization 3 ml INHALATION DAILY@0800 0RF polyethylene glycol 3350 [Miralax] 17 gram/dose powder 17 g PO DAILY PRN (Reason: Constipation) 0RF budesonide-formoterol [Symbicort] 160-4.5 mcg/actuation Hfa Aerosol Inhaler 2 puff INHALATION Q12H 0RF Trulance 3 mg tablet 3 mg PO DAILY 0RF celecoxib [Celebrex] 100 mg capsule 100 mg PO BID Qty: 20 0RF pantoprazole 40 mg Tablet,Delayed Release (Dr/Ec) 40 mg PO BID Qty: 60 0RF Eliquis 5 mg tablet 5 mg PO BID Qty: 74 0RF Rx Instructions: Please take for 6 weeks only. chlorthalidone 50 mg Tablet 25 mg PO DAILY@0800 Qty: 0 0RF losartan 100 mg tablet 50 mg PO DAILY@0800 Qty: 0 0RF ondansetron HCl [Zofran] 4 mg tablet 4 mg PO Q6H PRN (Reason: nausea and vomiting) Qty: 15 0RF Discharge Orders: Discharge ED (Routine); Ordered 01/08/22 Ordered By: Holden Cruz Referrals: Alpesh Garcia MD [Primary Care Provider] - Discharge Diet: Usual diet Discharge Activity: Increase activity as tolerated Patient Instructions: Finger Laceration (ED), Opioid Safety Activity Restrictions/Additional Instructions: Keep wound clean and dry. Leave dressing on for 3 days. Allow Steri-Strips to fall off on its own. Follow-up with primary care in 1 week for recheck. Take Augmentin, antibiotic, 1 tablet twice a day for 5 days. Return to emergency department for new concerns. Coding Level of Care Code ED Digital Tech for 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
[2022-01-08] MEDS: HYDROcodone-acetaminophen 5-325 mg Tablet 1 TAB PO (21:12)
[2022-01-08] MEDS: amoxicillin-clav 875-125 mg Tablet 1 TAB PO (21:12)
[2022-01-08 21:14] VITALS: BP 176/112
== END 2022-01-08 21:15 | disposition home or self-care (01) ==
PROVIDERS: Emergency Provider Nurse Practitioner Family; PCP Family Medicine
DX: S61.211A Laceration without foreign body of left index finger without damage to nail, initial encounter (principal); Z79.82 Long term (current) use of aspirin; Z79.01 Long term (current) use of anticoagulants; J44.9 Chronic obstructive pulmonary disease, unspecified; I10 Essential (primary) hypertension; Z77.22 Contact with and (suspected) exposure to environmental tobacco smoke (acute) (chronic); W26.0XXA Contact with knife, initial encounter
CPT/HCPCS: 99283

== ENCOUNTER → 2022-01-11 08:34 | Outpatient (BNVA) | payer MEDICAID, SELFPAY | PROVIDERS: PCP Family Medicine; Visit Provider Counselor Mental Health | DX: F41.0 Panic disorder [episodic paroxysmal anxiety] (principal); F33.2 Major depressive disorder, recurrent severe without psychotic features; F43.12 Post-traumatic stress disorder, chronic | CPT/HCPCS: 90837; 90834 ==

== ENCOUNTER → 2022-01-23 08:08 | Outpatient (BNVA) | payer MEDICAID, SELFPAY | PROVIDERS: PCP Family Medicine; Visit Provider Podiatrist Foot & Ankle Surgery | DX: M72.2 Plantar fascial fibromatosis (principal); M76.70 Peroneal tendinitis, unspecified leg | CPT/HCPCS: 20550 ==

== ENCOUNTER → 2022-01-24 08:21 | Outpatient (BNVA) | payer MEDICAID, SELFPAY | PROVIDERS: PCP Family Medicine; Visit Provider Counselor Mental Health | DX: F41.0 Panic disorder [episodic paroxysmal anxiety] (principal); F33.2 Major depressive disorder, recurrent severe without psychotic features; F43.12 Post-traumatic stress disorder, chronic | CPT/HCPCS: 90832; 90834 ==

== ENCOUNTER 2022-01-30 10:40 | Emergency (ER) | payer MEDICAID, SELFPAY ==
[2022-01-30 10:46] VITALS: BP 181/109; PULSE 85; RESP 18; TEMP 36.4; O2SAT 99; BMI 42.0
--- NOTE | 2022-01-30 10:57 | XRR_ITS ---
PROCEDURE INFORMATION: Exam: XR Chest Exam date and time: 01/30/2022 11:28 AM Age: 51 years old Clinical indication: Cough and dyspnea and shortness of breath; Additional info: Dyspnea/cough TECHNIQUE: Imaging protocol: XR of the chest. Views: 1 view. COMPARISON: CR (CHEST, ) 11/17/2021 9:34 PM FINDINGS: Lungs: Unremarkable. No consolidation. Pleural spaces: Unremarkable. No pleural effusion. No pneumothorax. Heart/Mediastinum: Unremarkable. No cardiomegaly. Bones/joints: Unremarkable. XR/XR chest 1V portable [id number] IMPRESSION: No acute findings.
--- NOTE | 2022-01-30 11:05 | CT_ITS ---
WS: [id number] CTA CHEST WITH CT ABDOMEN AND PELVIS. HISTORY: Short of breath with left-sided abdominal pain. Recent esophageal dilatation. TECHNIQUE: CT angiogram is performed through the chest. Additional imaging is performed through the a bdomen and pelvis with IV contrast. Sagittal and coronal reformats have been submitted. MIP imaging also reviewed. All CT scans at [facility] use at least one of these dose optimization techniqu es: automated exposure control; mA and/or kV adjustment per patient size (includes targeted exams whe re dose is matched to clinical indication); or iterative reconstruction. Contrast: Omnipaque 350; 95 cc IV. DLP: 1998.82 mGy.cm COMPARISON: 11/21/2021 Chest CTA: Very good opacification of the pulmonary arteries. Normal size pulmonary artery. No fillin g defects or emboli. Normal-sized thoracic aorta. No aneurysm or dissection. No pulmonary mass or pne umonia. 2 mm micronodule LEFT lower lobe. There is no mediastinal air or adenopathy. The visualized p ortion of the trachea and cervical esophagus are normal. There is no air in the soft tissues or infla mmation. 19 x 15 mm low-attenuation nodule closely associated with the RIGHT inferior pulmonary vein. Hounsfield units are very low, consistent with a RIGHT pulmonary venous recess. Abdomen CT: Small low-attenuation nodule measures 14 x 17 mm near the falciform ligament. Stable sinc e 03/03/2021. This may be a small hemangioma but is not a simple cyst and should be further evaluated. No additional liver masses. Limited visualization of the portal vein. No abnormality is identified. Gallbladder has been removed. Normal pancreas. Normal spleen and adrenal glands. No renal obstruction or mass. Normal aorta. The distal esophagus is normal caliber. No adjacent fluid or air. No perforat ion identified. Normally distended stomach. No small bowel obstruction or colon obstruction. Normal a ppendix. No filling defects noted within the proximal celiac axis or SMA. Pelvic CT: No free fluid. RIGHT adnexal cyst measures 3.4 x 2.6 cm and probably related to the ovary. The uterus is been removed. Normally distended urinary bladder. CT/CT angio chest w abd pel w con IMPRESSION: 1. No pulmonary embolism or pneumonia. 2. No mediastinal air or inflammation. 3. No free air in the abdomen or pelvis. 4. Low-attenuation mass associated with the RIGHT pulmonary vein is consistent with a venous recess. 5. Prior cholecystectomy. 6. Low-attenuation nodule along the falciform ligament. Recommend follow-up [address] evaluation 3-4 months. This may be a hemangioma but early malign allen should be excluded.
--- NOTE | 2022-01-30 11:06 | W.ED.CHESTPA ---
HPI - Chest Pain General: Chief Complaint: Chest Pain Stated Complaint: cp x 7 days,sob Time Seen by Provider: 01/30/22 10:43 Source: patient Mode of arrival: ambulatory Limitations: no limitations History of Present Illness: 51-year-old female presents to the emergency room with complaint of shortness of breath and chest discomfort and abdominal discomfort. 1 week ago she had an esophageal dilation in [place] since and has progressively gotten worse she is not having any bowel movements she is not had any vomiting but she has been very nauseous when she takes a deep breath or when she tries to swallow she gets throat chest and epigastric pain. She denies any medic easy melena hematemesis or coffee-ground emesis. MD complaint: chest pain Onset (ago): week(s) (1) Timing of current episode: episodic, increasing and still present Prior episodes: No Pain location: substernal and epigastric Pain radiation: none Severity: moderate Quality: sharp Relieving factors: nothing Exacerbating factors: inspiration, eating, palpation and movement Associated symptoms: Reports abdominal pain, dyspnea and nausea; Deny diaphoresis, fever(s), leg edema, palpitations, sense of impending doom, syncope or vomiting Treatment prior to arrival: none Review of Systems Const: Reports: change in appetite; Denies: fever(s), chills, body aches or diaphoresis ENMT: Denies: throat pain, ear or mastoid pain, nasal discharge or nasal congestion Card: Reports: chest pain; Denies: palpitations or syncope Resp: Reports: dyspnea GI: Reports: abdominal pain, nausea and dysphagia; Denies: vomiting, hematemesis or coffee ground emesis : Denies: flank pain, difficulty voiding, dysuria, urinary frequency or urinary urgency Skin/Breast: Denies: rash or pruritus PFSH ED PFSH: Medical History Abnormal reflex COPD (chronic obstructive pulmonary disease) HTN (hypertension) Neck pain Psychiatric care Psychiatric care Surgical History History of cholecystectomy Hx of section Hx of hysterectomy Family History Family/Other Cancer Diabetes Father Diabetes Hyperlipidemia Hypertension Stroke Mother Hypertension Stroke CAD (coronary artery disease) Rheumatoid arthritis Social History Smoking and tobacco status: never smoked Second hand smoke exposure: Yes Alcohol intake: never History of recent travel: No Physical Exam Const: GENERAL APPEARANCE: cooperative and comfortable ORIENTATION/CONSCIOUSNESS: Yes awake, Yes oriented to person, Yes oriented to place and Yes oriented to time HENMT: COMMON NORMALS: normocephalic and atraumatic HEAD & SCALP: normocephalic and atraumatic Neck/C-Spine: COMMON NORMALS: no JVD Resp: COMMON NORMALS: normal respiratory effort, No retractions, No use of accessory muscles and clear to auscultation bilaterally AUSCULTATION: clear to auscultation bilaterally Cardio: COMMON NORMALS: no JVD, regular rate, regular rhythm and No murmurs present (Cardio) RATE: regular rate RHYTHM: regular rhythm GI: COMMON NORMALS: No hepatosplenomegaly present AUSCULTATION: Yes normoactive bowel sounds PALPATION: Yes Tenderness to palpation present (GI) (epigastric), No Guarding due to palpation present (GI) and Yes No hepatosplenomegaly present Extremity: COMMON NORMALS: normal to inspection, capillary refill normal, no clubbing, cyanosis or edema, no calf tenderness and no pedal edema Neuro: SENSORIUM/ORIENTATION: Yes oriented to person, Yes oriented to place and Yes oriented to time Skin: COMMON NORMALS: no rashes or lesions noted GENERAL SKIN EXAM: no rashes or lesions noted Course Vital Signs: Vital signs: Vital Signs Temperature 97.6 F 01/30/22 10:46 Pulse Rate 82 01/30/22 14:55 Respiratory Rate 18 01/30/22 14:55 Blood Pressure 180/97 01/30/22 14:55 Pulse Oximetry 92 01/30/22 14:55 MDM - Chest Pain Medical Decision Making Labs imaging and EKG reviewed. Cardiac enzymes are negative. In talking to her some more she has been out of her stomach medicine for the last 2 to 3 days. She did have relief with a GI cocktail. We will go ahead and discharge her home. Avoid spicy foods carbonated beverages tomato based products cured meats etc. Follow-up with primary care doctor return if is worsening problems. Medical Records I reviewed the patient's medical records. Lab Data I reviewed the patient's lab results. : 01/30/22 11:30 01/30/22 12:31 Radiology Impressions Chest X-Ray 01/30/22 10:57 IMPRESSION: No acute findings. Chest/Abdomen/Pelvis CT 01/30/22 11:05 IMPRESSION: 1. No pulmonary embolism or pneumonia. 2. No mediastinal air or inflammation. 3. No free air in the abdomen or pelvis. 4. Low-attenuation mass associated with the RIGHT pulmonary vein is consistent with a venous recess. 5. Prior cholecystectomy. 6. Low-attenuation nodule along the falciform ligament. Recommend follow-up [address] evaluation 3-4 months. This may be a hemangioma but early malignancy should be excluded. Laboratory Results WBC 7.1 10^3/uL (4.0-10.0) 01/30/22 11:30 RBC 4.35 10^6/uL (4.1-5.3) 01/30/22 11:30 Hgb 12.7 g/dL (11.5-15.3) 01/30/22 11:30 Hct 40.1 % (37.0-47.0) 01/30/22 11:30 MCV 92.2 fl (81-99) 01/30/22 11:30 MCH 29.2 pg (28.0-34.0) 01/30/22 11:30 MCHC 31.7 g/dL (30.0-36.0) 01/30/22 11:30 RDW 16.1 % (12.1-15.1) H 01/30/22 11:30 Plt Count 309 10^3/cmm (130-400) 01/30/22 11:30 MPV 10.7 fL (7.4-10.4) H 01/30/22 11:30 Neut % (Auto) 68.6 % 01/30/22 11:30 Lymph % (Auto) 21.5 % 01/30/22 11:30 Hughes % (Auto) 8.0 % 01/30/22 11:30 Eos % (Auto) 0.8 % 01/30/22 11:30 Baso % (Auto) 0.8 % 01/30/22 11:30 Neut # (Auto) 4.88 10^3/uL (1.8-7.7) 01/30/22 11:30 Lymph # (Auto) 1.5 10^3/uL (0.8-4.8) 01/30/22 11:30 Hughes # (Auto) 0.6 10^3/uL (0.2-0.9) 01/30/22 11:30 Eos # (Auto) 0.1 10^3/uL (0.0-0.8) 01/30/22 11:30 Baso # (Auto) 0.1 10^3/uL (0.0-0.1) 01/30/22 11:30 Nucleated RBC % (auto) 0 % 01/30/22 11:30 Nucleated RBCs # 0.0 /100WBC 01/30/22 11:30 Sodium 137 mmol/L (136-145) 01/30/22 12:31 Potassium 3.7 mmol/L (3.5-5.1) 01/30/22 12:31 Chloride 100 mmol/L (98-107) 01/30/22 12:31 Carbon Dioxide 29 mmol/L (22-29) 01/30/22 12:31 Anion Gap 11.7 (5-19) 01/30/22 12:31 BUN 11 mg/dL (6-20) 01/30/22 12:31 Creatinine 0.5 mg/dL (0.5-0.9) 01/30/22 12:31 GFR Calculation 130.6 mL/min (90-130) H 01/30/22 12:31 Glucose 89 mg/dL (65-115) 01/30/22 12:31 Calculated Osmolality 283 mOsm/kg (285-295) L 01/30/22 12:31 Calcium 8.9 mg/dL (8.5-10.5) 01/30/22 12:31 Total Bilirubin 0.6 mg/dL (0.15-1.2) 01/30/22 12:31 AST 9 U/L (0-32) 01/30/22 12:31 ALT 13 U/L (0-33) 01/30/22 12:31 Alkaline Phosphatase 90 IU/L (35-105) 01/30/22 12:31 Troponin T Baseline 7 ng/L (0-10) 01/30/22 12:31 Troponin T 120 Minute 9.48 ng/L (0-10) 01/30/22 13:31 Delta Troponin T 2.48 ABS# (0-10) 01/30/22 13:31 Total Protein 6.9 g/dL (6.6-8.7) 01/30/22 12:31 Albumin 3.7 g/dL (3.5-5.2) 01/30/22 12:31 Globulin 3.2 g/dL (1.3-4.6) 01/30/22 12:31 Discharge Plan Discharge Patient Disposition: Home Clinical Impression: Chronic GERD, HTN (hypertension) Condition: Stable Prescriptions: New Carafate 1 gram tablet 1 g PO Q6H Qty: 60 0RF Protonix 40 mg tablet,delayed release (DR/EC) 40 mg PO BID 14 Days Qty: 28 0RF No Action (DME) ASO See Rx Instructions .Route .MEDSUPPLY Qty: 1 0RF Rx Instructions: As directed (DME) night splint to left See Rx Instructions .Route .MEDSUPPLY Qty: 1 0RF Rx Instructions: As directed fluoxetine [Prozac] 40 mg capsule 40 mg PO QAM Qty: 30 0RF Ubrelvy 100 mg tablet See Rx Instructions .ROUTE .COMPLEX Qty: 10 3RF Dose Instruction: TAKE 1 TABLET BY MOUTH ONCE AT ONSET OF HEADACHE, MAX 1 TABLET IN 24 HOURS Rx Instructions: TAKE 1 TABLET BY MOUTH ONCE AT ONSET OF HEADACHE, MAX 1 TABLET IN 24 HOURS amlodipine 5 mg Tablet 5 mg PO BEDTIME@2200 0RF albuterol sulfate 90 mcg/actuation Hfa Aerosol Inhaler 1 - 2 puff INHALATION Q4H PRN (Reason: Shortness Of Breath) 0RF diphenhydramine HCl [Benadryl] 25 mg Capsule 25 mg PO BEDTIME PRN (Reason: Insomnia) 0RF aspirin 81 mg Tablet,Chewable 81 mg PO QAM 0RF ipratropium-albuterol 0.5 mg-3 mg(2.5 mg base)/3 mL solution for nebulization 3 ml INHALATION DAILY@0800 0RF polyethylene glycol 3350 [Miralax] 17 gram/dose powder 17 g PO DAILY PRN (Reason: Constipation) 0RF budesonide-formoterol [Symbicort] 160-4.5 mcg/actuation Hfa Aerosol Inhaler 2 puff INHALATION Q12H 0RF Trulance 3 mg tablet 3 mg PO DAILY 0RF pantoprazole 40 mg Tablet,Delayed Release (Dr/Ec) 40 mg PO BID Qty: 60 0RF chlorthalidone 50 mg tablet 50 mg PO QAM 0RF clonazepam 0.5 mg tablet 0.25 - 0.5 mg PO BID PRN (Reason: anxiety/panic) 0RF losartan 100 mg tablet 100 mg PO QAM 0RF prazosin 2 mg capsule 4 mg PO BEDTIME 0RF Rx Instructions: hold for low BP Voltaren Arthritis Pain 1 % gel 4 g topical QID PRN (Reason: Pain) 0RF Rx Instructions: apply to single knee, ankle, foot; for foot includes sole/toes/top of foot quetiapine 50 mg tablet extended release 24 hr 100 mg PO BEDTIME 0RF tizanidine 4 mg tablet 4 mg PO Q8H PRN (Reason: Muscle Spasm) 0RF hydroxyzine HCl 50 mg tablet 50 mg PO TID PRN (Reason: UNKNOWN) 0RF montelukast 10 mg tablet 10 mg PO DAILY 0RF gabapentin 100 mg capsule 100 mg PO TID PRN (Reason: Pain) 0RF hydroxychloroquine 200 mg tablet 200 mg PO BID 0RF naproxen 500 mg tablet 500 mg PO BID PRN (Reason: Pain) 0RF metoprolol tartrate 25 mg tablet 25 mg PO BID 0RF cholecalciferol (vitamin D3) 1,250 mcg (50,000 unit) capsule 50,000 unit PO Q30D 0RF Discharge Orders: Discharge ED (Routine); Ordered 01/30/22 Ordered By: Juan Sutton Referrals: Alpesh Garcia MD [Primary Care Provider] - Discharge Activity: Increase activity as tolerated Patient Instructions: Opioid Safety Activity Restrictions/Additional Instructions: Follow-up with primary care doctor within the next 7 to 10 days. Coding Level of Care Code ED Competitive Intelligence Analyst for Francine Fwd Exam Comprehensive
[2022-01-30] MEDS: iohexol 350 mg/mL 100 mL Btl IV (11:42)
[2022-01-30 11:49] LABS: Basophils # 0.1 10^3/uL (0.0-0.1); Basophils % 0.8 %; Eosinophils # 0.1 10^3/uL (0.0-0.8); Eosinophils % 0.8 %; Hematocrit 40.1 % (37.0-47.0); Hemoglobin 12.7 g/dL (11.5-15.3); Lymphocytes # 1.5 10^3/uL (0.8-4.8); Lymphocytes % 21.5 %; Mean Corpuscular HGB Conc 31.7 g/dL (30.0-36.0); Mean Corpuscular Hemoglobin 29.2 pg (28.0-34.0); Mean Corpuscular Volume 92.2 fl (81-99); Mean Platelet Volume 10.7 fL (7.4-10.4); Monocytes # 0.6 10^3/uL (0.2-0.9); Neutrophils # 4.88 10^3/uL (1.8-7.7); Neutrophils % 68.6 %; Nucleated Red Blood Cells % 0 %; Platelet Count 309 10^3/cmm (130-400); Red Blood Count 4.35 10^6/uL (4.1-5.3); Red Cell Distribution Width 16.1 % (12.1-15.1); White Blood Count 7.1 10^3/uL (4.0-10.0)
[2022-01-30] MEDS: lidocaine 2% viscous 15 ML, aluminum-mag hydrox-simethicon 30 ML, sucralfate oral liq 1 GM PO (12:42)
--- NOTE | 2022-01-30 12:58 | ECG_ITS ---
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 Measurements Intervals [place] Rate: 69 P: 26 MI: 181 QRS: 49 QRSD: 83 T: 47 QT: 415 QTc: 447 Interpretive Statements SINUS RHYTHM Compared to ECG 01/30/2022 10:50:35 No significant changes Electronically Signed On 01-30-2022 23:32:06 CDT by Tracy Bo M.D. [email or web address] [email or web address] [email or web address] Indiamercy health lorain hospitalRFMarq/store/OM/[id number]
[2022-01-30 13:11] LABS: Troponin(5th) Baseline 7 ng/L (0-10)
[2022-01-30 13:12] LABS: Alanine Aminotransferase 13 U/L (0-33); Albumin Level 3.7 g/dL (3.5-5.2); Alkaline Phosphatase 90 IU/L (35-105); Anion Gap 11.7 (5-19); Aspartate Amino Transferase 9 U/L (0-32); Blood Urea Nitrogen 11 mg/dL (6-20); Calcium 8.9 mg/dL (8.5-10.5); Carbon Dioxide 29 mmol/L (22-29); Chloride 100 mmol/L (98-107); Globulin 3.2 g/dL (1.3-4.6); Glomerular Filtration Rate 130.6 mL/min (90-130); Glucose 89 mg/dL (65-115); Osmolality Calculated 283 mOsm/kg (285-295); Potassium 3.7 mmol/L (3.5-5.1); Sodium 137 mmol/L (136-145); Total Bilirubin 0.6 mg/dL (0.15-1.2); Total Protein 6.9 g/dL (6.6-8.7)
[2022-01-30 14:11] LABS: Troponin 5 2HR 9.48 ng/L (0-10)
[2022-01-30 14:49] LABS: Troponin 5 2HR Delta 2.48 ABS# (0-10)
[2022-01-30 14:55] VITALS: BP 180/97; PULSE 82; RESP 18; O2SAT 92
--- NOTE | 2022-01-30 16:58 | ECG_ITS ---
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 Measurements Intervals [place] Rate: 80 P: 12 NV: 161 QRS: 33 QRSD: 81 T: 26 QT: 382 QTc: 441 Interpretive Statements SINUS RHYTHM Compared to ECG 11/17/2021 21:01:27 No significant changes Electronically Signed On 01-30-2022 23:32:03 CDT by Tracy Bo M.D. [email or web address] Learning Solutionslutheran hospitalPinnacleCare/store/[id number]
== END 2022-01-30 14:57 | disposition home or self-care (01) ==
PROVIDERS: Emergency Provider Family Medicine; PCP Family Medicine
DX: K21.9 Gastro-esophageal reflux disease without esophagitis (principal); I10 Essential (primary) hypertension; Z79.82 Long term (current) use of aspirin
CPT/HCPCS: 71045; 71275; 74177; 80053; 84484; 85025; 93005; 99283; Q9967

== ENCOUNTER → 2022-01-31 07:45 | Outpatient (BNVA) | payer MEDICAID, SELFPAY | PROVIDERS: PCP Family Medicine; Visit Provider Nurse Practitioner Psychiatric/Mental Health | DX: F41.0 Panic disorder [episodic paroxysmal anxiety] (principal); F33.2 Major depressive disorder, recurrent severe without psychotic features; F43.12 Post-traumatic stress disorder, chronic | CPT/HCPCS: 99214 ==

== ENCOUNTER → 2022-02-20 08:27 | Outpatient (BNVA) | payer MEDICAID, SELFPAY | PROVIDERS: PCP Family Medicine; Visit Provider Podiatrist Foot & Ankle Surgery | DX: M72.2 Plantar fascial fibromatosis (principal); M76.72 Peroneal tendinitis, left leg | CPT/HCPCS: 20550 ==

== ENCOUNTER 2022-03-17 07:56 | Emergency (ER) | payer MEDICAID, SELFPAY ==
[2022-03-17 08:01] VITALS: BP 210/109; PULSE 90; RESP 18; TEMP 36.6; O2SAT 99; BMI 42.0
--- NOTE | 2022-03-17 08:11 | ECG_ITS ---
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 Measurements Intervals [place] Rate: 74 P: 23 RI: 174 QRS: 16 QRSD: 86 T: 5 QT: 405 QTc: 452 Interpretive Statements SINUS RHYTHM Compared to ECG 01/30/2022 13:08:23 No significant changes Electronically Signed On 03-17-2022 20:26:50 CDT by Valente Orozco M.D. [email or web address] [email or web address] [id number]
--- NOTE | 2022-03-17 08:11 | XRR_ITS ---
PROCEDURE INFORMATION: Exam: XR Chest Exam date and time: 03/17/2022 8:43 AM Age: 51 years old Clinical indication: Cough TECHNIQUE: Imaging protocol: XR of the chest. Views: 1 view. COMPARISON: CR XR chest 1V portable [id number] 01/30/2022 11:28 AM FINDINGS: Lungs: No pulmonary consolidation. Pleural spaces: No pleural effusion. No pneumothorax. Heart/Mediastinum: The cardiac silhouette is unchanged. No gross evidence of pneumomediastinum. Bones/joints: No gross fracture. XR/XR chest 1V portable [id number] IMPRESSION: No acute cardiopulmonary abnormality identified.
--- NOTE | 2022-03-17 08:14 | W.ED.GENADLT ---
HPI - General Adult General: Chief complaint: General Medical Stated complaint: loss of voice; sore throat; difficulty swallowing Time Seen by Provider: 03/17/22 08:02 Source: patient Mode of arrival: ambulatory Limitations: no limitations History of Present Illness: 51-year-old female who states over the last 2 days she has had a cough along with fevers and sore throat. States she just does not feel well. She denies any nausea vomiting states she does have painful swallowing and some slight dyspnea. She denies any worsening improving factors she is in no distress here fevers are subjective she has not taken her temperature at home. Associated symptoms: Deny chest pain, headache(s), nausea, rash or vomiting Review of Systems Const: Reports: fever(s) and fatigue Eyes: Denies: blurry vision or eye discomfort ENMT: Reports: throat pain Card: Denies: chest pain Resp: Reports: non-productive cough GI: Denies: abdominal pain, nausea, vomiting or diarrhea : Denies: dysuria Musc: Denies: neck pain or back pain Skin/Breast: Denies: rash Neuro: Denies: headache(s) Psych: Denies: depression Rui/Lymph: Denies: easy bruising All/Imm: Denies: urticaria PFSH ED PFSH: Medical History Abnormal reflex COPD (chronic obstructive pulmonary disease) HTN (hypertension) Neck pain Psychiatric care Psychiatric care Surgical History History of cholecystectomy Hx of section Hx of hysterectomy Family History Family/Other Cancer Diabetes Father Diabetes Hyperlipidemia Hypertension Stroke Mother Hypertension Stroke CAD (coronary artery disease) Rheumatoid arthritis Social History Smoking and tobacco status: never smoked Second hand smoke exposure: Yes Alcohol intake: never History of recent travel: No Physical Exam Const: COMMON NORMALS: no acute distress, patient oriented x3 and healthy appearing HENMT: COMMON NORMALS: normocephalic and atraumatic HEAD & SCALP: normocephalic and atraumatic THROAT: posterior oropharynx normal, tonsils normal and uvula midline Eye: COMMON NORMALS: Equal, round and reactive pupils present and EOMs intact bilaterally PUPIL: Yes Equal, round and reactive pupils present Neck/C-Spine: COMMON NORMALS: full ROM and supple Chest: COMMONS NORMALS: normal inspection of the chest and normal palpation of entire chest wall Resp: COMMON NORMALS: normal respiratory effort, No retractions, No use of accessory muscles and clear to auscultation bilaterally AUSCULTATION: clear to auscultation bilaterally Cardio: COMMON NORMALS: regular rate, regular rhythm and No murmurs present (Cardio) RATE: regular rate RHYTHM: regular rhythm GI: COMMON NORMALS: Normal to inspection, nondistended, normoactive bowel sounds present, Soft to palpation, non-tender and no masses PALPATION: Yes Soft to palpation Extremity: COMMON NORMALS: normal to inspection and full ROM Neuro: COMMON NORMALS: patient oriented x3, moves all extremities and no focal motor deficits Psych: COMMON NORMALS: mental status grossly normal, Normal thought process present and cooperative THOUGHT PROCESS: Normal thought process present Skin: COMMON NORMALS: no rashes or lesions noted and no wounds GENERAL SKIN EXAM: no rashes or lesions noted Course Vital Signs: Vital signs: Vital Signs Temperature 97.9 F 03/17/22 08:01 Pulse Rate 90 03/17/22 08:01 Respiratory Rate 20 H 03/17/22 08:35 Blood Pressure 210/109 03/17/22 08:01 Pulse Oximetry 99 03/17/22 08:01 [facility] - General Adult Medical Decision Making Patient presents here with sore throat along with some cough congestion could be viral in origin some going on for some time we will treat with Keflex and Naprosyn blood work here is all normal she is stable for discharge follow-up PCP and return if worsening. Lab Data : 03/17/22 08:30 03/17/22 08:30 Radiology Impressions Chest X-Ray 03/17/22 08:11 IMPRESSION: No acute cardiopulmonary abnormality identified. Laboratory Results WBC 6.8 10^3/uL (4.0-10.0) 03/17/22 08:30 RBC 4.56 10^6/uL (4.1-5.3) 03/17/22 08:30 Hgb 13.1 g/dL (11.5-15.3) 03/17/22 08:30 Hct 41.5 % (37.0-47.0) 03/17/22 08:30 MCV 91.0 fl (81-99) 03/17/22 08:30 MCH 28.7 pg (28.0-34.0) 03/17/22 08:30 MCHC 31.6 g/dL (30.0-36.0) 03/17/22 08:30 RDW 13.8 % (12.1-15.1) 03/17/22 08:30 Plt Count 321 10^3/cmm (130-400) 03/17/22 08:30 MPV 9.9 fL (7.4-10.4) 03/17/22 08:30 Neut % (Auto) 73.2 % 03/17/22 08:30 Lymph % (Auto) 14.4 % 03/17/22 08:30 [place] % (Auto) 10.2 % 03/17/22 08:30 Eos % (Auto) 1.2 % 03/17/22 08:30 Baso % (Auto) 0.7 % 03/17/22 08:30 Neut # (Auto) 4.97 10^3/uL (1.8-7.7) 03/17/22 08:30 Lymph # (Auto) 1.0 10^3/uL (0.8-4.8) 03/17/22 08:30 [place] # (Auto) 0.7 10^3/uL (0.2-0.9) 03/17/22 08:30 Eos # (Auto) 0.1 10^3/uL (0.0-0.8) 03/17/22 08:30 Baso # (Auto) 0.1 10^3/uL (0.0-0.1) 03/17/22 08:30 Nucleated RBC % (auto) 0 % 03/17/22 08:30 Nucleated RBCs # 0.0 /100WBC 03/17/22 08:30 Sodium 138 mmol/L (136-145) 03/17/22 08:30 Potassium 4.0 mmol/L (3.5-5.1) 03/17/22 08:30 Chloride 99 mmol/L (98-107) 03/17/22 08:30 Carbon Dioxide 28 mmol/L (22-29) 03/17/22 08:30 Anion Gap 15.0 (5-19) 03/17/22 08:30 BUN 8 mg/dL (6-20) 03/17/22 08:30 Creatinine 0.5 mg/dL (0.5-0.9) 03/17/22 08:30 GFR Calculation 130.6 mL/min (90-130) H 03/17/22 08:30 Glucose 95 mg/dL (65-115) 03/17/22 08:30 Calculated Osmolality 284 mOsm/kg (285-295) L 03/17/22 08:30 Calcium 8.9 mg/dL (8.5-10.5) 03/17/22 08:30 Total Bilirubin 0.8 mg/dL (0.15-1.2) 03/17/22 08:30 AST 14 U/L (0-32) 03/17/22 08:30 ALT 13 U/L (0-33) 03/17/22 08:30 Alkaline Phosphatase 97 IU/L (35-105) 03/17/22 08:30 Total Protein 7.3 g/dL (6.6-8.7) 03/17/22 08:30 Albumin 4.0 g/dL (3.5-5.2) 03/17/22 08:30 Globulin 3.3 g/dL (1.3-4.6) 03/17/22 08:30 Lipase 44 U/L (13-60) 03/17/22 08:30 SARS-CoV-2 Ag (Rapid) Negative (Negative) 03/17/22 08:30 Group A Strep Rapid Negative (Negative) 03/17/22 08:30 EKG Data EKG 1: I personally reviewed and interpreted this EKG as follows: EKG interpretation date: 03/17/22 EKG interpretation time: 09:28 Interpretation: nsr hr [address] or t wave abnormalities qrs 86 qtc 433 Computer generated interpretation: Chest X-Ray 03/17/22 08:11 IMPRESSION: No acute cardiopulmonary abnormality identified. Discharge Plan Discharge Patient Disposition: Home Clinical Impression: Sore throat Condition: Stable Prescriptions: New cephalexin 500 mg capsule 500 mg PO TID 7 Days Qty: 21 0RF Naprosyn 500 mg tablet 500 mg PO BID PRN (Reason: pain) Qty: 20 0RF No Action (DME) ASO See Rx Instructions .Route .MEDSUPPLY Qty: 1 0RF Rx Instructions: As directed (DME) night splint to left See Rx Instructions .Route .MEDSUPPLY Qty: 1 0RF Rx Instructions: As directed fluoxetine 20 mg capsule 60 mg PO DAILY Qty: 90 1RF Rx Instructions: Take 3 capsules every morning; stop 40 mg dose prazosin 2 mg capsule 4 mg PO BEDTIME Qty: 60 1RF Rx Instructions: Take 2 capsules by mouth at bedtime; hold for low BP or dizziness quetiapine 150 mg tablet extended release 24 hr 150 mg PO DAILY Qty: 30 1RF Rx Instructions: Take one tablet by mouth each day at least 1 hour before bedtime; stop 50 mg dose clonazepam 0.5 mg tablet 0.25 - 0.5 mg PO BID PRN (Reason: anxiety/panic) Qty: 60 1RF Rx Instructions: Take 1/2 to 1 tablet up to twice a day, if needed for anxiety/panic Ubrelvy 100 mg tablet See Rx Instructions .ROUTE .COMPLEX Qty: 10 3RF Dose Instruction: TAKE 1 TABLET BY MOUTH ONCE AT ONSET OF HEADACHE, MAX 1 TABLET IN 24 HOURS Rx Instructions: TAKE 1 TABLET BY MOUTH ONCE AT ONSET OF HEADACHE, MAX 1 TABLET IN 24 HOURS amlodipine 5 mg Tablet 5 mg PO BEDTIME@2200 0RF albuterol sulfate 90 mcg/actuation Hfa Aerosol Inhaler 1 - 2 puff INHALATION Q4H PRN (Reason: Shortness Of Breath) 0RF diphenhydramine HCl [Benadryl] 25 mg Capsule 25 mg PO BEDTIME PRN (Reason: Insomnia) 0RF aspirin 81 mg Tablet,Chewable 81 mg PO QAM 0RF ipratropium-albuterol 0.5 mg-3 mg(2.5 mg base)/3 mL solution for nebulization 3 ml INHALATION DAILY@0800 0RF polyethylene glycol 3350 [Miralax] 17 gram/dose powder 17 g PO DAILY PRN (Reason: Constipation) 0RF budesonide-formoterol [Symbicort] 160-4.5 mcg/actuation Hfa Aerosol Inhaler 2 puff INHALATION Q12H 0RF Trulance 3 mg tablet 3 mg PO DAILY 0RF pantoprazole 40 mg Tablet,Delayed Release (Dr/Ec) 40 mg PO BID Qty: 60 0RF chlorthalidone 50 mg tablet 50 mg PO QAM 0RF losartan 100 mg tablet 100 mg PO QAM 0RF Voltaren Arthritis Pain 1 % gel 4 g topical QID PRN (Reason: Pain) 0RF Rx Instructions: apply to single knee, ankle, foot; for foot includes sole/toes/top of foot tizanidine 4 mg tablet 4 mg PO Q8H PRN (Reason: Muscle Spasm) 0RF hydroxyzine HCl 50 mg tablet 50 mg PO TID PRN (Reason: UNKNOWN) 0RF montelukast 10 mg tablet 10 mg PO DAILY 0RF gabapentin 100 mg capsule 100 mg PO TID PRN (Reason: Pain) 0RF hydroxychloroquine 200 mg tablet 200 mg PO BID 0RF naproxen 500 mg tablet 500 mg PO BID PRN (Reason: Pain) 0RF metoprolol tartrate 25 mg tablet 25 mg PO BID 0RF cholecalciferol (vitamin D3) 1,250 mcg (50,000 unit) capsule 50,000 unit PO Q30D 0RF Carafate 1 gram tablet 1 g PO Q6H Qty: 60 0RF Discharge Orders: Discharge ED (Routine); Ordered 03/17/22 Ordered By: Leon Moura Referrals: Alpesh Garcia MD [Primary Care Provider] - 1-3 days Discharge Diet: Advance as tolerated Discharge Activity: Resume usual activity Patient Instructions: Strep Throat (ED) Stand Alone Forms: Work/School Release Coding Level of Care Code ED Lmft for Chg Fwd Exam Comprehensive
[2022-03-17] MEDS: sodium chloride 0.9% 1,000 ML 999 ML IV (08:30)
[2022-03-17] MEDS: dexamethasone 10 mg/mL INJ IVP (08:30)
[2022-03-17 08:35] VITALS: RESP 20
[2022-03-17] MEDS: morphine 4 mg/mL SDV 1 mL IVP (08:35)
[2022-03-17 08:44] LABS: Basophils # 0.1 10^3/uL (0.0-0.1); Basophils % 0.7 %; Eosinophils # 0.1 10^3/uL (0.0-0.8); Eosinophils % 1.2 %; Hematocrit 41.5 % (37.0-47.0); Hemoglobin 13.1 g/dL (11.5-15.3); Lymphocytes % 14.4 %; Mean Corpuscular HGB Conc 31.6 g/dL (30.0-36.0); Mean Corpuscular Hemoglobin 28.7 pg (28.0-34.0); Mean Platelet Volume 9.9 fL (7.4-10.4); Monocytes # 0.7 10^3/uL (0.2-0.9); Monocytes % 10.2 %; Neutrophils # 4.97 10^3/uL (1.8-7.7); Neutrophils % 73.2 %; Nucleated Red Blood Cells % 0 %; Platelet Count 321 10^3/cmm (130-400); Red Blood Count 4.56 10^6/uL (4.1-5.3); Red Cell Distribution Width 13.8 % (12.1-15.1); White Blood Count 6.8 10^3/uL (4.0-10.0)
[2022-03-17 09:06] LABS: Alanine Aminotransferase 13 U/L (0-33); Alkaline Phosphatase 97 IU/L (35-105); Blood Urea Nitrogen 8 mg/dL (6-20); Calcium 8.9 mg/dL (8.5-10.5); Carbon Dioxide 28 mmol/L (22-29); Chloride 99 mmol/L (98-107); Globulin 3.3 g/dL (1.3-4.6); Glomerular Filtration Rate 130.6 mL/min (90-130); Glucose 95 mg/dL (65-115); Lipase 44 U/L (13-60); Osmolality Calculated 284 mOsm/kg (285-295); Sodium 138 mmol/L (136-145); Total Bilirubin 0.8 mg/dL (0.15-1.2); Total Protein 7.3 g/dL (6.6-8.7)
[2022-03-17 09:19] LABS: Aspartate Amino Transferase 14 U/L (0-32)
[2022-03-17 09:50] LABS: Rapid Strep A Test Negative (Negative)
[2022-03-17] MEDS: labetalol 5 mg/mL SDV 20mL 10 MG IVP (09:54)
[2022-03-17 10:06] VITALS: BP 164/111; PULSE 80; RESP 18; O2SAT 97
[2022-03-17 10:06] LABS: SARS Covid-2 Antigen Negative (Negative)
[2022-03-17 10:51] VITALS: BP 161/96; PULSE 78; RESP 18; O2SAT 97
[2022-03-17 10:57] VITALS: BP 158/90; PULSE 72; RESP 18; O2SAT 97
== END 2022-03-17 11:01 | disposition home or self-care (01) ==
PROVIDERS: Emergency Provider Emergency Medicine; PCP Family Medicine
DX: J02.9 Acute pharyngitis, unspecified (principal); R05.9 Cough, unspecified; R50.9 Fever, unspecified; R06.00 Dyspnea, unspecified
CPT/HCPCS: 71045; 80053; 83690; 85025; 87081; 87426; 87880; 93005; 96374; 99284; J1100; J2270; J3490; J7030

== ENCOUNTER 2022-03-20 14:59 | Emergency (ER) | payer MEDICAID, SELFPAY ==
[2022-03-20 15:16] VITALS: PULSE 106; RESP 20; TEMP 36.8; O2SAT 97
--- NOTE | 2022-03-20 15:28 | XRR_ITS ---
PROCEDURE INFORMATION: Exam: XR Chest Exam date and time: 03/20/2022 4:21 PM Age: 51 years old Clinical indication: Cough TECHNIQUE: Imaging protocol: XR of the chest. Views: 1 view. COMPARISON: CR (CHEST, ) 03/17/2022 8:43 AM FINDINGS: Lungs: Unremarkable. No consolidation. Pleural spaces: Unremarkable. No pleural effusion. No pneumothorax. Heart/Mediastinum: Unremarkable. No cardiomegaly. Bones/joints: Unremarkable. XR/XR chest 1V portable [id number] IMPRESSION: No acute findings.
--- NOTE | 2022-03-20 16:29 | W.ED.GENADLT ---
HPI - General Adult General: Chief complaint: Nausea/Vomiting/Diarrhea Stated complaint: abd pains, trouble breathing, diarrhea Time Seen by Provider: 03/20/22 16:12 History of Present Illness: Patient is a 51-year-old female with a history of asthma, esophageal dysfunction s/p dilatation in the past presenting to the emergency room with complaints of cough, shortness of breath, difficulty swallowing, nausea and vomiting x3 days. Patient first noted throat like symptoms about 3 days ago. Since then patient has had difficulty tolerating liquids and solids. Patient reports multiple episodes of emesis. Around yesterday, patient began nose noticing body ache, chills, cough, diarrhea, and malaise. Patient denies having any chest pain, stridor, hoarseness of voice, or drooling. Patient denies any rash on her arms or legs. Patient denies any sick contact at home. He thinks that she may be coming down with a viral infection on top. Patient tells me in the past when she had difficulty swallowing and throat pain, her esophagus was spasming and needed EGD. That procedure was performed in [place]. Patient denies any melena/medic easier, or complaints. 3 days ago, she was seen in the emergency room for similar ocmplaint and was prescribed napysn with minimal improvement in symptoms. Onset:3 days ago Duration:3 days Location:home Severity:moderate Associated symptoms: Reports dyspnea, nausea and vomiting; Deny chest pain, rash or palpitations Review of Systems Const: Denies: fever(s) or chills Eyes: Denies: change in vision ENMT: Reports: other (+difficulty swallowing, esophageal pain); Denies: mouth pain Card: Denies: chest pain or palpitations Resp: Reports: dyspnea and non-productive cough GI: Reports: nausea, vomiting and other (+decreased po intake); Denies: abdominal pain or diarrhea : Denies: dysuria Musc: Denies: extremity pain Skin/Breast: Denies: rash or new lesions Neuro: Denies: weakness in extremities Psych: Reports: other (Normal mood) Rui/Lymph: Denies: easy bruising PFS ED PFSH: Medical History (Updated 03/25/22 @ 00:01 by ) Abnormal reflex COPD (chronic obstructive pulmonary disease) GERD (gastroesophageal reflux disease) HTN (hypertension) Neck pain Psychiatric care Psychiatric care Surgical History History of cholecystectomy Hx of section Hx of colonoscopy [address] [facility] Hx of hysterectomy Family History Family/Other Cancer Diabetes Father Diabetes Hyperlipidemia Hypertension Stroke Mother Hypertension Stroke CAD (coronary artery disease) Rheumatoid arthritis Social History Smoking and tobacco status: never smoked Second hand smoke exposure: Yes Alcohol intake: never History of recent travel: No Physical Exam Const: COMMON NORMALS: alert HENMT: COMMON NORMALS: atraumatic HEAD & SCALP: atraumatic MOUTH: moist mucous membranes not abnormal Eye: COMMON NORMALS: EOMs intact bilaterally and conjunctivae normal CONJUNCTIVA: Yes conjunctivae normal Neck/C-Spine: COMMON NORMALS: full ROM and supple Resp: COMMON NORMALS: normal respiratory effort OTHER: +mild coarse breath sounds b/l Cardio: COMMON NORMALS: regular rate RATE: regular rate GI: COMMON NORMALS: Soft to palpation and non-tender PALPATION: Yes Soft to palpation OTHER: No focal TTP. NO guarding rebound, guarding, rigidity. No CVA tenderness to percussion. Neg Contreras/Neg McBurney's point tenderness, no suprabupic tenderness to palpation. Extremity: COMMON NORMALS: full ROM Neuro: SENSORIUM/ORIENTATION: Yes alert MOTOR EXAM: No Abnormal motor strength present and Other motor observations present (no focal motor deficits) Psych: COMMON NORMALS: speech normal SPEECH: Yes normal speech MOOD & AFFECT: Yes euthymic mood Course Vital Signs: Vital signs: Vital Signs Temperature 98.5 F 03/20/22 19:38 Pulse Rate 78 03/20/22 19:38 Respiratory Rate 18 03/20/22 19:38 Blood Pressure 189/110 03/20/22 19:38 Pulse Oximetry 98 03/20/22 19:38 MDM - General Adult Medical Decision Making 51F with history esophageal dysmotility s/p EGD dilatation in [place] presenting the emergency room w/ swallowing difficulty, cough, dyspnea, and generalized weakness x 3. On physical exam, no focal findings on lung exam. No increased work of breathing or airway compromise. White count of 8.7. Rest of lab within normal limit. Patient is afebrile, has no signs of respiratory distress while observed in the emergency room. X-ray chest clear. She has not had any episodes of emesis is able to tolerate liquid in the emergency room. HR improved on reassessment after IVF. At the present time, it is unknown what is the cause of patient's complaints of esophageal complaints. Patient reports cough improved after breathing treatment. I have given patient close follow-up with her GI provider for possible future EGD. Patient is also given close follow-up with primary care provider for a swallow study. Patient verbalized agreement with plan. Patient is given strict return precaution for any signs of respiratory distress, oral airway compromise, or any new concerning complaints. I have given patient follow up with our case management social worker to be seen by Dr. Holman for concern for esophgeal spasm and prior EGD. Patient aware of a call from our case management social worker to schedule for appointment(s) and verbalizes understanding of the importance of following up. Disposition: Discharge. Patient counseled regarding diagnostic impression, treatment plan. Patient given ED strict return precautions to return for continuation, worsening, or development of new symptoms. Instructed to f/u w/ PCP regarding symptoms today. Patient verbalized understanding. Lab Data : 03/20/22 17:17 03/20/22 17:17 Radiology Impressions Chest X-Ray 03/20/22 15:28 IMPRESSION: No acute findings. Laboratory Results WBC 8.7 10^3/uL (4.0-10.0) 03/20/22 17:17 RBC 4.44 10^6/uL (4.1-5.3) 03/20/22 17:17 Hgb 12.9 g/dL (11.5-15.3) 03/20/22 17:17 Hct 40.2 % (37.0-47.0) 03/20/22 17:17 MCV 90.5 fl (81-99) 03/20/22 17:17 MCH 29.1 pg (28.0-34.0) 03/20/22 17:17 MCHC 32.1 g/dL (30.0-36.0) 03/20/22 17:17 RDW 13.8 % (12.1-15.1) 03/20/22 17:17 Plt Count 291 10^3/cmm (130-400) 03/20/22 17:17 MPV 9.9 fL (7.4-10.4) 03/20/22 17:17 Neut % (Auto) 66.9 % 03/20/22 17:17 Lymph % (Auto) 17.0 % 03/20/22 17:17 Mcpherson % (Auto) 10.5 % 03/20/22 17:17 Eos % (Auto) 4.8 % 03/20/22 17:17 Baso % (Auto) 0.6 % 03/20/22 17:17 Neut # (Auto) 5.84 10^3/uL (1.8-7.7) 03/20/22 17:17 Lymph # (Auto) 1.5 10^3/uL (0.8-4.8) 03/20/22 17:17 Mcpherson # (Auto) 0.9 10^3/uL (0.2-0.9) 03/20/22 17:17 Eos # (Auto) 0.4 10^3/uL (0.0-0.8) 03/20/22 17:17 Baso # (Auto) 0.1 10^3/uL (0.0-0.1) 03/20/22 17:17 Nucleated RBC % (auto) 0 % 03/20/22 17:17 Nucleated RBCs # 0.0 /100WBC 03/20/22 17:17 Sodium 138 mmol/L (136-145) 03/20/22 17:17 Potassium 3.5 mmol/L (3.5-5.1) 03/20/22 17:17 Chloride 100 mmol/L (98-107) 03/20/22 17:17 Carbon Dioxide 29 mmol/L (22-29) 03/20/22 17:17 Anion Gap 12.5 (5-19) 03/20/22 17:17 BUN 11 mg/dL (6-20) 03/20/22 17:17 Creatinine 0.6 mg/dL (0.5-0.9) 03/20/22 17:17 GFR Calculation 105.8 mL/min (90-130) 03/20/22 17:17 Glucose 100 mg/dL (65-115) 03/20/22 17:17 Calculated Osmolality 285 mOsm/kg (285-295) 03/20/22 17:17 Calcium 8.6 mg/dL (8.5-10.5) 03/20/22 17:17 Total Bilirubin 0.4 mg/dL (0.15-1.2) 03/20/22 17:17 AST 12 U/L (0-32) 03/20/22 17:17 ALT 26 U/L (0-33) 03/20/22 17:17 Alkaline Phosphatase 92 IU/L (35-105) 03/20/22 17:17 Total Protein 6.4 g/dL (6.6-8.7) L 03/20/22 17:17 Albumin 3.9 g/dL (3.5-5.2) 03/20/22 17:17 Globulin 2.5 g/dL (1.3-4.6) 03/20/22 17:17 Urine Color Yellow (Yellow) 03/20/22 17:00 Urine Appearance Clear (CLEAR) 03/20/22 17:00 Urine pH 6 (5-7) 03/20/22 17:00 Ur Specific [place] 1.020 (1.005-1.030) 03/20/22 17:00 Urine Protein Neg (Negative) 03/20/22 17:00 Urine Glucose (UA) Norm (Normal) 03/20/22 17:00 Urine Ketones Negative (Negative) 03/20/22 17:00 Urine Blood 2+ (Negative) H 03/20/22 17:00 Urine Nitrate Negative (Negative) 03/20/22 17:00 Urine Bilirubin Neg (Negative) 03/20/22 17:00 Urine Urobilinogen Norm mg/dL (Negative) 03/20/22 17:00 Ur Leukocyte Esterase Negative (Negative) 03/20/22 17:00 Urine RBC 5-10 /hpf (0-2) H 03/20/22 17:00 Urine WBC 0-4 /hpf (0-5) H 03/20/22 17:00 Ur Squamous Epith Cells 0-4 /hpf (0-5) H 03/20/22 17:00 Amorphous Sediment Not Reportable 03/20/22 17:00 Urine Bacteria Trace /hpf (NONE) 03/20/22 17:00 Nasal Influ A H1 2009 PCR Not detected (NOT DETECT) 03/20/22 17:00 Adenovirus (PCR) Not detected (NOT DETECT) 03/20/22 17:00 C. pneumoniae DNA (PCR) Not detected (NOT DETECT) 03/20/22 17:00 Coronavirus 229E (PCR) Not detected (NOT DETECT) 03/20/22 17:00 Human Metapneumovir PCR Not detected (NOT DETECT) 03/20/22 17:00 Influenza A (H1) PCR Not detected (NOT DETECT) 03/20/22 17:00 Influenza A (H3) PCR Not detected (NOT DETECT) 03/20/22 17:00 Influenza Type A (PCR) Not detected (NOT DETECT) 03/20/22 17:00 Influenza Type B (PCR) Not detected (NOT DETECT) 03/20/22 17:00 M. pneumoniae (PCR) Not detected (NOT DETECT) 03/20/22 17:00 Parainfluenza 1 (PCR) Not detected (NOT DETECT) 03/20/22 17:00 Parainfluenza 2 (PCR) Not detected (NOT DETECT) 03/20/22 17:00 Parainfluenza 3 (PCR) Not detected (NOT DETECT) 03/20/22 17:00 Parainfluenza 4 (PCR) Not detected (NOT DETECT) 03/20/22 17:00 RSV Type A (PCR) Not detected (NOT DETECT) 03/20/22 17:00 RSV Type B (PCR) Not detected (NOT DETECT) 03/20/22 17:00 Entero/Rhino (PCR) Detected (NOT DETECT) A 03/20/22 17:00 SARS-CoV-2 (PCR) Not detected (NOT DETECT) 03/20/22 17:00 Group A Strep Rapid Negative (Negative) 03/20/22 17:00 Imaging Data Other Imaging: Radiologist's impression: [address] [address] XRay Report Signed Patient: Nani Pryor Unit #: [id number] : 1970 Age/Sex: 51 / F ADM Date: 03/20/22 Loc: ER Room/Bed: Attending Dr: Ordering Provider/Ordering MD: Omaira Adames Date of Service: 03/20/22 Procedure(s): XR chest 1V portable [id number] Accession Number(s): [id number] Report Number: [id number] PROCEDURE INFORMATION: Exam: XR Chest Exam date and time: 03/20/2022 4:21 PM Age: 51 years old Clinical indication: Cough TECHNIQUE: Imaging protocol: XR of the chest. Views: 1 view. COMPARISON: CR (CHEST, ) 03/17/2022 8:43 AM FINDINGS: Lungs: Unremarkable. No consolidation. Pleural spaces: Unremarkable. No pleural effusion. No pneumothorax. Heart/Mediastinum: Unremarkable. No cardiomegaly. Bones/joints: Unremarkable. XR/XR chest 1V portable [id number] IMPRESSION: No acute findings. ? Dictated By: Andre Park MD Signed By: Andre Park MD Signed Date/Time: 03/20/22 1646 Discharge Plan Discharge Patient Disposition: Home Clinical Impression: Cough, Nausea & vomiting, Dysphagia Condition: Stable Prescriptions: No Action (DME) ASO See Rx Instructions .Route .MEDSUPPLY Qty: 1 0RF Rx Instructions: As directed (DME) night splint to left See Rx Instructions .Route .MEDSUPPLY Qty: 1 0RF Rx Instructions: As directed fluoxetine 20 mg capsule 60 mg PO DAILY Qty: 90 1RF Rx Instructions: Take 3 capsules every morning; stop 40 mg dose prazosin 2 mg capsule 4 mg PO BEDTIME Qty: 60 1RF Rx Instructions: Take 2 capsules by mouth at bedtime; hold for low BP or dizziness quetiapine 150 mg tablet extended release 24 hr 150 mg PO DAILY Qty: 30 1RF Rx Instructions: Take one tablet by mouth each day at least 1 hour before bedtime; stop 50 mg dose clonazepam 0.5 mg tablet 0.25 - 0.5 mg PO BID PRN (Reason: anxiety/panic) Qty: 60 1RF Rx Instructions: Take 1/2 to 1 tablet up to twice a day, if needed for anxiety/panic Ubrelvy 100 mg tablet See Rx Instructions .ROUTE .COMPLEX Qty: 10 3RF Dose Instruction: TAKE 1 TABLET BY MOUTH ONCE AT ONSET OF HEADACHE, MAX 1 TABLET IN 24 HOURS Rx Instructions: TAKE 1 TABLET BY MOUTH ONCE AT ONSET OF HEADACHE, MAX 1 TABLET IN 24 HOURS amlodipine 5 mg Tablet 5 mg PO BEDTIME@2200 0RF albuterol sulfate 90 mcg/actuation Hfa Aerosol Inhaler 1 - 2 puff INHALATION Q4H PRN (Reason: Shortness Of Breath) 0RF diphenhydramine HCl [Benadryl] 25 mg Capsule 25 mg PO BEDTIME PRN (Reason: Insomnia) 0RF aspirin 81 mg Tablet,Chewable 81 mg PO QAM 0RF ipratropium-albuterol 0.5 mg-3 mg(2.5 mg base)/3 mL solution for nebulization 3 ml INHALATION DAILY@0800 0RF polyethylene glycol 3350 [Miralax] 17 gram/dose powder 17 g PO DAILY PRN (Reason: Constipation) 0RF budesonide-formoterol [Symbicort] 160-4.5 mcg/actuation Hfa Aerosol Inhaler 2 puff INHALATION Q12H 0RF Trulance 3 mg tablet 3 mg PO DAILY 0RF pantoprazole 40 mg Tablet,Delayed Release (Dr/Ec) 40 mg PO BID Qty: 60 0RF chlorthalidone 50 mg tablet 50 mg PO QAM 0RF losartan 100 mg tablet 100 mg PO QAM 0RF Voltaren Arthritis Pain 1 % gel 4 g topical QID PRN (Reason: Pain) 0RF Rx Instructions: apply to single knee, ankle, foot; for foot includes sole/toes/top of foot tizanidine 4 mg tablet 4 mg PO Q8H PRN (Reason: Muscle Spasm) 0RF hydroxyzine HCl 50 mg tablet 50 mg PO TID PRN (Reason: UNKNOWN) 0RF montelukast 10 mg tablet 10 mg PO DAILY 0RF gabapentin 100 mg capsule 100 mg PO TID PRN (Reason: Pain) 0RF hydroxychloroquine 200 mg tablet 200 mg PO BID 0RF naproxen 500 mg tablet 500 mg PO BID PRN (Reason: Pain) 0RF metoprolol tartrate 25 mg tablet 25 mg PO BID 0RF cholecalciferol (vitamin D3) 1,250 mcg (50,000 unit) capsule 50,000 unit PO Q30D 0RF Carafate 1 gram tablet 1 g PO Q6H Qty: 60 0RF Naprosyn 500 mg tablet 500 mg PO BID PRN (Reason: pain) Qty: 20 0RF Discharge Orders: Discharge ED (Routine); Ordered 03/20/22 Ordered By: Carlo Sorenson Referrals: Alpesh Garcia MD [Primary Care Provider] - Discharge Diet: Advance as tolerated Discharge Activity: Increase activity as tolerated Activity Restrictions/Additional Instructions: Please follow-up with Rush Dewey tomorrow or your primary care provider for a swallow evaluation. Come back to the emergency room if you are unable to hold anything down. Come back if you have any respiratory distress shortness of breath, or any new concerning complaints. Our case management social worker will have you follow-up with Dr. Holman for possible EGD in the next few days. You would be expected to have a phone call with our case management social worker who will put you on the schedule. You can expect a call from us in the next 2-3 days. If you don't hear from us, call us back in the emergency room at [phone]. 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
[2022-03-20] MEDS: sodium chloride 0.9% 1,000 ML 999 ML IV (17:00)
[2022-03-20] MEDS: famotidine 20 mg/2 mL INJ IVP (17:00)
[2022-03-20 17:22] VITALS: BP 148/54; PULSE 88; RESP 18; TEMP 36.9; O2SAT 96
[2022-03-20 17:29] LABS: Add Urine Microscopic? YES; Bilirubin Urine Neg (Negative); Blood Urine 2+ (Negative); Glucose Urine UA Norm (Normal); Ketones Urine Negative (Negative); Leukocyte Esterase Urine Negative (Negative); Nitrate Urine Negative (Negative); Protein Urine Neg (Negative); Rapid Strep A Test Negative (Negative); Urine Appearance Clear (CLEAR); Urine Color Yellow (Yellow); Urobilinogen Urine Norm (Negative); pH Urine 6 (5-7)
[2022-03-20 17:29] LABS: Basophils # 0.1 10^3/uL (0.0-0.1); Basophils % 0.6 %; Eosinophils # 0.4 10^3/uL (0.0-0.8); Eosinophils % 4.8 %; Hematocrit 40.2 % (37.0-47.0); Hemoglobin 12.9 g/dL (11.5-15.3); Lymphocytes # 1.5 10^3/uL (0.8-4.8); Mean Corpuscular HGB Conc 32.1 g/dL (30.0-36.0); Mean Corpuscular Hemoglobin 29.1 pg (28.0-34.0); Mean Corpuscular Volume 90.5 fl (81-99); Mean Platelet Volume 9.9 fL (7.4-10.4); Monocytes # 0.9 10^3/uL (0.2-0.9); Monocytes % 10.5 %; Neutrophils # 5.84 10^3/uL (1.8-7.7); Neutrophils % 66.9 %; Nucleated Red Blood Cells % 0 %; Platelet Count 291 10^3/cmm (130-400); Red Blood Count 4.44 10^6/uL (4.1-5.3); Red Cell Distribution Width 13.8 % (12.1-15.1); White Blood Count 8.7 10^3/uL (4.0-10.0)
[2022-03-20 17:30] LABS: Add Urine Culture? No; Bacteria Urine TRACE /hpf; Squamous Epithelial Cell Urine 0-4 /hpf (0-5); WBC Urine 0-4 /hpf (0-5)
[2022-03-20 17:53] LABS: Alanine Aminotransferase 26 U/L (0-33); Albumin Level 3.9 g/dL (3.5-5.2); Alkaline Phosphatase 92 IU/L (35-105); Anion Gap 12.5 (5-19); Aspartate Amino Transferase 12 U/L (0-32); Blood Urea Nitrogen 11 mg/dL (6-20); Calcium 8.6 mg/dL (8.5-10.5); Carbon Dioxide 29 mmol/L (22-29); Chloride 100 mmol/L (98-107); Globulin 2.5 g/dL (1.3-4.6); Glomerular Filtration Rate 105.8 mL/min (90-130); Glucose 100 mg/dL (65-115); Osmolality Calculated 285 mOsm/kg (285-295); Potassium 3.5 mmol/L (3.5-5.1); Sodium 138 mmol/L (136-145); Total Bilirubin 0.4 mg/dL (0.15-1.2); Total Protein 6.4 g/dL (6.6-8.7)
[2022-03-20 18:56] LABS: Adenovirus Not Detected (NOT DETECT); Chlamydia Pneumoniae Not Detected (NOT DETECT); Coronavirus 229E,HKU1,NL63,OC4 Not Detected (NOT DETECT); Human Metapneumovirus Not Detected (NOT DETECT); Human Rhinovirus/Enterovirus Detected (NOT DETECT); Influenza A Not Detected (NOT DETECT); Influenza A H1 Not Detected (NOT DETECT); Influenza A H1-2009 Not Detected (NOT DETECT); Influenza A H3 Not Detected (NOT DETECT); Influenza B Not Detected (NOT DETECT); Mycoplasma Pneumoniae Not Detected (NOT DETECT); Parainfluenza Virus Type 1 Not Detected (NOT DETECT); Parainfluenza Virus Type 2 Not Detected (NOT DETECT); Parainfluenza Virus Type 3 Not Detected (NOT DETECT); Parainfluenza Virus Type 4 Not Detected (NOT DETECT); Respiratory Syncytial Virus A Not Detected (NOT DETECT); Respiratory Syncytial Virus B Not Detected (NOT DETECT); SARS-COV-2 Not Detected (NOT DETECT)
--- NOTE | 2022-03-20 19:16 | PC.NURSE ---
190 Assumed pt care from Cortney HIDALGO
[2022-03-20 19:38] VITALS: BP 189/110; PULSE 78; RESP 18; TEMP 36.9; O2SAT 98
--- NOTE | 2022-03-21 09:53 | DCPLANNER ---
Addendum entered by Nina Orellana 03/29/22 07:50: Patient had a follow up appointment scheduled for 03.22.[address] Holman at [facility] - patient did attend appointment. Original Note: manager mba had message to schedule a follow up appointment for patient with general surgery. manager mba sent patients information to the front office staff at general surgery. Patients information will be printed and reviewed. Clinic will call patient with appointment information.
== END 2022-03-20 19:48 | disposition home or self-care (01) ==
PROVIDERS: Physician Assistant; Emergency Provider Emergency Medicine; PCP Family Medicine
DX: R05.9 Cough, unspecified (principal); R11.2 Nausea with vomiting, unspecified; R13.10 Dysphagia, unspecified; K21.9 Gastro-esophageal reflux disease without esophagitis
CPT/HCPCS: 71045; 80053; 81001; 85025; 87081; 87486; 87581; 87633; 87880; 96361; 96374; 99284; J3490; J7030

== ENCOUNTER → 2022-03-22 08:43 | Outpatient (BNVA) | payer MEDICAID, SELFPAY | PROVIDERS: PCP Family Medicine; Referring Provider Emergency Medicine; Visit Provider Surgery | DX: K21.9 Gastro-esophageal reflux disease without esophagitis (principal); R10.9 Unspecified abdominal pain | CPT/HCPCS: 99203 ==

== ENCOUNTER → 2022-03-28 15:07 | Outpatient (BNVA) | payer MEDICAID, SELFPAY | PROVIDERS: PCP Family Medicine; Visit Provider Specialist | DX: G43.711 Chronic migraine without aura, intractable, with status migrainosus (principal) | CPT/HCPCS: 64615; 96372; J0585; J1885 ==

== ENCOUNTER 2022-03-31 20:22 | Emergency (ER) | payer MEDICAID, SELFPAY ==
[2022-03-31 20:30] VITALS: BP 175/117; PULSE 109; RESP 24; TEMP 36.8; O2SAT 97; BMI 41.1
--- NOTE | 2022-03-31 20:41 | ECG_ITS ---
[facility] Test Date: 2022-03-31 Pat Name: Nani Pryor Department: Room: Gender: Female Qualification Engineer: : 1970 Requested By: Leon Moura Order Number: [id number] Jaclyn MD: Tracy Bo M.D. Measurements Intervals [place] Rate: 112 P: 55 NH: 170 QRS: 12 QRSD: 85 T: 26 QT: 327 QTc: 447 Interpretive Statements SINUS TACHYCARDIA POSSIBLE LEFT ATRIAL ENLARGEMENT [-0.1mV P-WAVE IN V1/V2] ABNORMAL RHYTHM ECG Compared to ECG 03/17/2022 09:28:37 Sinus rhythm no longer present Electronically Signed On 04-01-2022 19:38:34 CDT by Tracy Bo M.D. [id number]
--- NOTE | 2022-03-31 20:41 | XRR_ITS ---
PROCEDURE INFORMATION: Exam: XR Chest Exam date and time: 03/31/2022 9:22 PM Age: 51 years old Clinical indication: Sternal or substernal pain; Additional info: Cp TECHNIQUE: Imaging protocol: XR of the chest. Views: 1 view. COMPARISON: CR XR chest 1V portable [id number] 03/20/2022 4:21 PM FINDINGS: Lungs: Unremarkable. No consolidation. Pleural spaces: Unremarkable. No pleural effusion. No pneumothorax. Heart/Mediastinum: Unremarkable. No cardiomegaly. Bones/joints: Unremarkable. XR/XR chest 1V portable [id number] IMPRESSION: No acute findings.
[2022-03-31 21:50] VITALS: BP 197/130; PULSE 87; RESP 15; O2SAT 94
--- NOTE | 2022-03-31 22:19 | W.ED.CHESTPA ---
HPI - Chest Pain General: Chief Complaint: Chest Pain Stated Complaint: CP/ High BP Time Seen by Provider: 03/31/22 21:18 Source: patient Mode of arrival: ambulatory Limitations: no limitations History of Present Illness: 51-year-old female states that over the last week she has been having throat pain along with chest pain and states she has not been feeling well states she is also had a slight cough with some diarrhea. She states she is mainly concerned as she has had difficulty swallowing in the past since had to have an EGD she states that she is having painful swallowing she denies any fever. She denies any vomiting. She is in no distress here. Associated symptoms: Deny abdominal pain, dyspnea, fever(s), nausea or vomiting Review of Systems Const: Denies: fever(s), chills, body aches or change in appetite Eyes: Denies: blurry vision or eye discomfort ENMT: Reports: throat pain Card: Reports: chest pain Resp: Denies: dyspnea GI: Denies: abdominal pain, nausea, vomiting or diarrhea : Denies: dysuria Musc: Denies: neck pain or back pain Skin/Breast: Denies: rash Neuro: Denies: headache(s) Psych: Denies: depression Rui/Lymph: Denies: easy bruising All/Imm: Denies: urticaria PFSH ED PFSH: Medical History Abnormal reflex COPD (chronic obstructive pulmonary disease) GERD (gastroesophageal reflux disease) HTN (hypertension) Neck pain Psychiatric care Psychiatric care Surgical History History of cholecystectomy Hx of section Hx of colonoscopy 2020 [facility] Hx of hysterectomy Family History Family/Other Cancer Diabetes Father Diabetes Hyperlipidemia Hypertension Stroke Mother Hypertension Stroke CAD (coronary artery disease) Rheumatoid arthritis Other Major depressive disorder, recurrent severe without psychotic features Panic disorder [episodic paroxysmal anxiety] Post-traumatic stress disorder, chronic Social History Smoking and tobacco status: never smoked Second hand smoke exposure: Yes Alcohol intake: never History of recent travel: No Physical Exam Const: COMMON NORMALS: no acute distress, patient oriented x3 and healthy appearing HENMT: COMMON NORMALS: normocephalic and atraumatic HEAD & SCALP: normocephalic and atraumatic Eye: COMMON NORMALS: Equal, round and reactive pupils present and EOMs intact bilaterally PUPIL: Yes Equal, round and reactive pupils present Neck/C-Spine: COMMON NORMALS: full ROM and supple Chest: COMMONS NORMALS: normal inspection of the chest and normal palpation of entire chest wall Resp: COMMON NORMALS: normal respiratory effort, No retractions, No use of accessory muscles and clear to auscultation bilaterally AUSCULTATION: clear to auscultation bilaterally Cardio: COMMON NORMALS: regular rate, regular rhythm and No murmurs present (Cardio) RATE: regular rate RHYTHM: regular rhythm GI: COMMON NORMALS: Normal to inspection, nondistended, normoactive bowel sounds present, Soft to palpation, non-tender and no masses PALPATION: Yes Soft to palpation Extremity: COMMON NORMALS: normal to inspection and full ROM Neuro: COMMON NORMALS: patient oriented x3, moves all extremities and no focal motor deficits Psych: COMMON NORMALS: mental status grossly normal, Normal thought process present and cooperative THOUGHT PROCESS: Normal thought process present Skin: COMMON NORMALS: no rashes or lesions noted and no wounds GENERAL SKIN EXAM: no rashes or lesions noted Course Vital Signs: Vital signs: Vital Signs Temperature 98.3 F 03/31/22 20:30 Pulse Rate 87 03/31/22 21:50 Respiratory Rate 15 03/31/22 21:50 Blood Pressure 197/130 03/31/22 21:50 Pulse Oximetry 94 03/31/22 21:50 MDM - Chest Pain Medical Decision Making Patient presents here with chest pain that is atypical in nature her troponin here is negative she has been having pains for a week. She is no signs of acute coronary syndrome. She has no signs of aortic dissection or pulm embolism. She does have some dysphagia that is chronic in nature she had an EGD in the past where she had a stretching informed her she findings to follow-up with her physician and have another EGD she understands agrees to plan she has any worsening symptoms she is to return immediately Lab Data : 03/31/22 22:14 03/31/22 22:14 Radiology Impressions Chest X-Ray 03/31/22 20:41 IMPRESSION: No acute findings. Laboratory Results WBC 10.4 10^3/uL (4.0-10.0) H 03/31/22 22:14 RBC 4.73 10^6/uL (4.1-5.3) 03/31/22 22:14 Hgb 13.6 g/dL (11.5-15.3) 03/31/22 22:14 Hct 41.8 % (37.0-47.0) 03/31/22 22:14 MCV 88.4 fl (81-99) 03/31/22 22:14 MCH 28.8 pg (28.0-34.0) 03/31/22 22:14 MCHC 32.5 g/dL (30.0-36.0) 03/31/22 22:14 RDW 14.0 % (12.1-15.1) 03/31/22 22:14 Plt Count 325 10^3/cmm (130-400) 03/31/22 22:14 MPV 9.4 fL (7.4-10.4) 03/31/22 22:14 Neut % (Auto) 70.4 % 03/31/22 22:14 Lymph % (Auto) 18.4 % 03/31/22 22:14 [place] % (Auto) 8.9 % 03/31/22 22:14 Eos % (Auto) 1.4 % 03/31/22 22:14 Baso % (Auto) 0.7 % 03/31/22 22:14 Neut # (Auto) 7.29 10^3/uL (1.8-7.7) 03/31/22 22:14 Lymph # (Auto) 1.9 10^3/uL (0.8-4.8) 03/31/22 22:14 [place] # (Auto) 0.9 10^3/uL (0.2-0.9) 03/31/22 22:14 Eos # (Auto) 0.2 10^3/uL (0.0-0.8) 03/31/22 22:14 Baso # (Auto) 0.1 10^3/uL (0.0-0.1) 03/31/22 22:14 Nucleated RBC % (auto) 0 % 03/31/22 22:14 Nucleated RBCs # 0.0 /100WBC 03/31/22 22:14 Sodium 138 mmol/L (136-145) 03/31/22 22:14 Potassium 3.4 mmol/L (3.5-5.1) L 03/31/22 22:14 Chloride 98 mmol/L (98-107) 03/31/22 22:14 Carbon Dioxide 27 mmol/L (22-29) 03/31/22 22:14 Anion Gap 16.4 (5-19) 03/31/22 22:14 BUN 14 mg/dL (6-20) 03/31/22 22:14 Creatinine 0.6 mg/dL (0.5-0.9) 03/31/22 22:14 GFR Calculation 105.8 mL/min (90-130) 03/31/22 22:14 Glucose 106 mg/dL (65-115) 03/31/22 22:14 Calculated Osmolality 287 mOsm/kg (285-295) 03/31/22 22:14 Calcium 9.3 mg/dL (8.5-10.5) 03/31/22 22:14 Total Bilirubin 0.6 mg/dL (0.15-1.2) 03/31/22 22:14 AST 9 U/L (0-32) 03/31/22 22:14 ALT 13 U/L (0-33) 03/31/22 22:14 Alkaline Phosphatase 114 IU/L (35-105) H 03/31/22 22:14 Troponin T Baseline 9 ng/L (0-10) 03/31/22 22:14 Total Protein 7.3 g/dL (6.6-8.7) 03/31/22 22:14 Albumin 4.2 g/dL (3.5-5.2) 03/31/22 22:14 Globulin 3.1 g/dL (1.3-4.6) 03/31/22 22:14 Lipase 58 U/L (13-60) 03/31/22 22:14 SARS-CoV-2 Ag (Rapid) Negative (Negative) 03/31/22 22:40 Discharge Plan Discharge Patient Disposition: Home Clinical Impression: Chest pain, Dysphagia Condition: Stable Prescriptions: No Action (DME) ASO See Rx Instructions .Route .MEDSUPPLY Qty: 1 0RF Rx Instructions: As directed (DME) night splint to left See Rx Instructions .Route .MEDSUPPLY Qty: 1 0RF Rx Instructions: As directed fluoxetine 20 mg capsule 60 mg PO DAILY Qty: 90 1RF Rx Instructions: Take 3 capsules every morning; stop 40 mg dose prazosin 2 mg capsule 4 mg PO BEDTIME Qty: 60 1RF Rx Instructions: Take 2 capsules by mouth at bedtime; hold for low BP or dizziness quetiapine 150 mg tablet extended release 24 hr 150 mg PO DAILY Qty: 30 1RF Rx Instructions: Take one tablet by mouth each day at least 1 hour before bedtime; stop 50 mg dose clonazepam 0.5 mg tablet 0.25 - 0.5 mg PO BID PRN (Reason: anxiety/panic) Qty: 60 1RF Rx Instructions: Take 1/2 to 1 tablet up to twice a day, if needed for anxiety/panic diazepam 10 mg tablet 10 mg PO BID PRN (Reason: anxiety) Qty: 2 0RF Rx Instructions: Take 1-2 tabs 30 minutes prior to procedure Ubrelvy 100 mg tablet See Rx Instructions .ROUTE .COMPLEX Qty: 10 3RF Dose Instruction: TAKE 1 TABLET BY MOUTH ONCE AT ONSET OF HEADACHE, MAX 1 TABLET IN 24 HOURS Rx Instructions: TAKE 1 TABLET BY MOUTH ONCE AT ONSET OF HEADACHE, MAX 1 TABLET IN 24 HOURS amlodipine 5 mg Tablet 5 mg PO BEDTIME@2200 0RF albuterol sulfate 90 mcg/actuation Hfa Aerosol Inhaler 1 - 2 puff INHALATION Q4H PRN (Reason: Shortness Of Breath) 0RF diphenhydramine HCl [Benadryl] 25 mg Capsule 25 mg PO BEDTIME PRN (Reason: Insomnia) 0RF aspirin 81 mg Tablet,Chewable 81 mg PO QAM 0RF ipratropium-albuterol 0.5 mg-3 mg(2.5 mg base)/3 mL solution for nebulization 3 ml INHALATION DAILY@0800 0RF polyethylene glycol 3350 [Miralax] 17 gram/dose powder 17 g PO DAILY PRN (Reason: Constipation) 0RF budesonide-formoterol [Symbicort] 160-4.5 mcg/actuation Hfa Aerosol Inhaler 2 puff INHALATION Q12H 0RF Trulance 3 mg tablet 3 mg PO DAILY 0RF pantoprazole 40 mg Tablet,Delayed Release (Dr/Ec) 40 mg PO BID Qty: 60 0RF chlorthalidone 50 mg tablet 50 mg PO QAM 0RF losartan 100 mg tablet 100 mg PO QAM 0RF Voltaren Arthritis Pain 1 % gel 4 g topical QID PRN (Reason: Pain) 0RF Rx Instructions: apply to single knee, ankle, foot; for foot includes sole/toes/top of foot tizanidine 4 mg tablet 4 mg PO Q8H PRN (Reason: Muscle Spasm) 0RF hydroxyzine HCl 50 mg tablet 50 mg PO TID PRN (Reason: UNKNOWN) 0RF montelukast 10 mg tablet 10 mg PO DAILY 0RF gabapentin 100 mg capsule 100 mg PO TID PRN (Reason: Pain) 0RF hydroxychloroquine 200 mg tablet 200 mg PO BID 0RF naproxen 500 mg tablet 500 mg PO BID PRN (Reason: Pain) 0RF metoprolol tartrate 25 mg tablet 25 mg PO BID 0RF cholecalciferol (vitamin D3) 1,250 mcg (50,000 unit) capsule 50,000 unit PO Q30D 0RF Carafate 1 gram tablet 1 g PO Q6H Qty: 60 0RF Naprosyn 500 mg tablet 500 mg PO BID PRN (Reason: pain) Qty: 20 0RF Discharge Orders: Discharge ED (Routine); Ordered 03/31/22 Ordered By: Leon Moura Referrals: Alpesh Garcia MD [Primary Care Provider] - 1-3 days Discharge Diet: Advance as tolerated Discharge Activity: Resume usual activity Patient Instructions: Chest Pain (ED), Dysphagia (ED) Stand Alone Forms: Work/School Release Coding Level of Care Code ED Smoking Pipe Mounter for Chg Fwd Exam Comprehensive
[2022-03-31 22:20] LABS: Basophils # 0.1 10^3/uL (0.0-0.1); Basophils % 0.7 %; Eosinophils # 0.2 10^3/uL (0.0-0.8); Eosinophils % 1.4 %; Hematocrit 41.8 % (37.0-47.0); Hemoglobin 13.6 g/dL (11.5-15.3); Lymphocytes # 1.9 10^3/uL (0.8-4.8); Lymphocytes % 18.4 %; Mean Corpuscular HGB Conc 32.5 g/dL (30.0-36.0); Mean Corpuscular Hemoglobin 28.8 pg (28.0-34.0); Mean Corpuscular Volume 88.4 fl (81-99); Mean Platelet Volume 9.4 fL (7.4-10.4); Monocytes # 0.9 10^3/uL (0.2-0.9); Monocytes % 8.9 %; Neutrophils # 7.29 10^3/uL (1.8-7.7); Neutrophils % 70.4 %; Nucleated Red Blood Cells % 0 %; Platelet Count 325 10^3/cmm (130-400); Red Blood Count 4.73 10^6/uL (4.1-5.3); White Blood Count 10.4 10^3/uL (4.0-10.0)
[2022-03-31] MEDS: diphenhydrAMINE 50 mg/mL SDV 1mL IVP (22:24)
[2022-03-31] MEDS: metoclopramide 5 mg/mL SDV 2 mL 10 MG IVP (22:24)
[2022-03-31 22:39] LABS: Troponin(5th) Baseline 9 ng/L (0-10)
[2022-03-31 22:41] LABS: Alanine Aminotransferase 13 U/L (0-33); Albumin Level 4.2 g/dL (3.5-5.2); Alkaline Phosphatase 114 IU/L (35-105); Anion Gap 16.4 (5-19); Aspartate Amino Transferase 9 U/L (0-32); Blood Urea Nitrogen 14 mg/dL (6-20); Calcium 9.3 mg/dL (8.5-10.5); Carbon Dioxide 27 mmol/L (22-29); Chloride 98 mmol/L (98-107); Globulin 3.1 g/dL (1.3-4.6); Glomerular Filtration Rate 105.8 mL/min (90-130); Glucose 106 mg/dL (65-115); Lipase 58 U/L (13-60); Osmolality Calculated 287 mOsm/kg (285-295); Potassium 3.4 mmol/L (3.5-5.1); Sodium 138 mmol/L (136-145); Total Bilirubin 0.6 mg/dL (0.15-1.2); Total Protein 7.3 g/dL (6.6-8.7)
[2022-03-31 23:05] LABS: SARS Covid-2 Antigen Negative (Negative)
[2022-03-31] MEDS: labetalol 5 mg/mL SDV 20mL 10 MG IVP (23:25)
[2022-03-31 23:58] VITALS: BP 181/114; PULSE 87; O2SAT 94
== END 2022-04-01 | disposition home or self-care (01) ==
PROVIDERS: Emergency Provider Emergency Medicine; PCP Family Medicine
DX: R07.9 Chest pain, unspecified (principal); R13.10 Dysphagia, unspecified; K21.9 Gastro-esophageal reflux disease without esophagitis; I10 Essential (primary) hypertension; J44.9 Chronic obstructive pulmonary disease, unspecified
CPT/HCPCS: 71045; 80053; 83690; 84484; 85025; 87426; 93005; 96374; 96375; 99285; J1200; J2765; J3490

== ENCOUNTER → 2022-04-03 07:52 | Outpatient (BNVA) | payer MEDICAID, SELFPAY | PROVIDERS: PCP Family Medicine; Visit Provider Podiatrist Foot & Ankle Surgery | DX: M79.672 Pain in left foot (principal); M72.2 Plantar fascial fibromatosis; M76.70 Peroneal tendinitis, unspecified leg | CPT/HCPCS: 99213 ==

== ENCOUNTER → 2022-04-16 08:42 | Outpatient (BNVA) | payer MEDICAID, SELFPAY | PROVIDERS: PCP Family Medicine; Visit Provider Nurse Practitioner Psychiatric/Mental Health | DX: F41.0 Panic disorder [episodic paroxysmal anxiety] (principal); F33.2 Major depressive disorder, recurrent severe without psychotic features; F43.12 Post-traumatic stress disorder, chronic | CPT/HCPCS: 99214 ==

== ENCOUNTER → 2022-05-15 08:05 | Outpatient (BNVA) | payer MEDICAID, SELFPAY | PROVIDERS: PCP Family Medicine; Visit Provider Podiatrist Foot & Ankle Surgery | DX: M79.672 Pain in left foot (principal); M72.2 Plantar fascial fibromatosis | CPT/HCPCS: 20610; J1100; J3301; J3490 ==

== ENCOUNTER 2022-05-21 09:13 | Emergency (ER) | payer MEDICAID, SELFPAY ==
[2022-05-21 09:26] VITALS: BP 176/135; PULSE 82; RESP 16; TEMP 36.6; O2SAT 96; BMI 41.7
--- NOTE | 2022-05-21 11:33 | XRR_ITS ---
PROCEDURE INFORMATION: Exam: XR Right Shoulder Exam date and time: 05/21/2022 11:52 AM Age: 51 years old Clinical indication: Pain; Shoulder; Right; Patient HX: Lifting something heavy; Additional info: Shoulder pain TECHNIQUE: Imaging protocol: Radiologic exam of the Right shoulder. Views: 2 or more views. COMPARISON: MR shoulder RT wo con* [id number] 07/19/2021 7:51 AM FINDINGS: Bones/joints: Normal. Soft tissues: Normal. XR/XR shoulder RT min 2V* [id number] IMPRESSION: No acute findings.
--- NOTE | 2022-05-21 11:33 | ECG_ITS ---
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 Measurements Intervals [place] Rate: 79 P: 8 NC: 173 QRS: 13 QRSD: 92 T: 17 QT: 396 QTc: 454 Interpretive Statements SINUS RHYTHM INTERPRETATION BASED ON A DEFAULT AGE OF 40 YEARS Compared to ECG 03/31/2022 20:28:43 Sinus tachycardia no longer present Electronically Signed On 05-21-2022 21:10:08 CDT by Tracy Bo M.D. [id number]
--- NOTE | 2022-05-21 13:04 | W.ED.EXTPRO ---
HPI - Extremity Problem General: Chief complaint: Extremity Problem,Nontraumatic Stated complaint: Left pain from wrist to back Time Seen by Provider: 05/21/22 12:51 Source: patient Mode of arrival: ambulatory Limitations: no limitations History of Present Illness: Patient is a 51-year-old female who presents to ED today with a complaint of right shoulder pain. Patient states approximately 2 months ago she had an MRI at an outlying facility which showed some type of tendon/ligamentous injury. She states she was told to sling the extremity and follow-up with orthopedics. Patient states she was in the process of moving to the area so she never followed up with orthopedics. She does have an appointment here scheduled for 05/[address] Diaz. Patient states she has not been wearing her sling like she is supposed to and states she helped a family member move furniture the other day and has now exacerbated her pain. She is not complaining of any numbness, tingling, loss of sensation to the extremity. No color/temperature changes noted. MD Complaint: joint pain (R shoulder) Onset (ago): month(s) Pain Consistency: constant Location: right and upper extremity Radiation: none Relieving factors: immobilization Exacerbating factors: range of motion Associated symptoms: Reports no associated symptoms; Deny chest pain or rash Review of Systems Eyes: Denies: change in vision, blurry vision, blind spots, floaters or seeing flashes Card: Denies: chest pain Resp: Denies: dyspnea GI: Denies: abdominal pain Musc: Reports: joint pain (R shoulder); Denies: neck pain, back pain, extremity pain, extremity swelling or joint swelling Skin/Breast: Denies: rash Neuro: Denies: headache(s), numbness in extremities, weakness in extremities, sensory changes, dizziness, vertigo or confusion PFS ED PFSH: Medical History Abnormal reflex COPD (chronic obstructive pulmonary disease) GERD (gastroesophageal reflux disease) HTN (hypertension) Neck pain Psychiatric care Psychiatric care Surgical History History of cholecystectomy Hx of section Hx of colonoscopy 2020 [facility] Hx of hysterectomy Family History Family/Other Cancer Diabetes Father Diabetes Hyperlipidemia Hypertension Stroke Mother Hypertension Stroke CAD (coronary artery disease) Rheumatoid arthritis Other Major depressive disorder, recurrent severe without psychotic features Panic disorder [episodic paroxysmal anxiety] Post-traumatic stress disorder, chronic Social History Smoking and tobacco status: never smoked Second hand smoke exposure: Yes Alcohol intake: never History of recent travel: No Physical Exam Const: COMMON NORMALS: no acute distress, patient oriented x3, no limitations and alert GENERAL APPEARANCE: cooperative NUTRITIONAL APPEARANCE: obese morbidly obese ORIENTATION/CONSCIOUSNESS: Yes awake, Yes oriented to person, Yes oriented to place and Yes oriented to time HENMT: COMMON NORMALS: normocephalic and atraumatic HEAD & SCALP: normal to inspection, normocephalic and atraumatic Resp: COMMON NORMALS: normal respiratory effort and clear to auscultation bilaterally AUSCULTATION: clear to auscultation bilaterally Cardio: COMMON NORMALS: regular rate and regular rhythm RATE: regular rate RHYTHM: regular rhythm Extremity: GENERAL: Yes normal exam except as noted RIGHT UPPER EXTREMITY: Yes shoulder joint (TTP anterior shoulder) Right shoulder: Yes Right shoulder joint inspection exam (normal gross inspection), Yes Right shoulder joint ROM exam (limited secondary to pt discomfort) and Yes Right shoulder joint neurovascular exam (normal) Neuro: LEIGH ANN COMA SCALE: document GCS findings Leigh [place] coma scale eye opening: Spontaneous [place] coma scale verbal response: Orientated [place] coma scale motor response: Obey commands [place] coma scale total score: 15 COMMON NORMALS: patient oriented x3, CN's II-XII intact bilaterally, moves all extremities, no focal motor deficits and no sensory deficits noted SENSORIUM/ORIENTATION: Yes alert, Yes oriented to person, Yes oriented to place and Yes oriented to time MOTOR EXAM: 5/5 motor strength present throughout Course Vital Signs: Vital signs: Vital Signs Temperature 97.9 F 05/21/22 09:26 Pulse Rate 82 05/21/22 09:26 Respiratory Rate 16 05/21/22 09:26 Blood Pressure 176/135 05/21/22 09:26 Pulse Oximetry 96 05/21/22 09:26 Oxygen Delivery Me thod 05/21/22 09:26 MDM - Extremity (Nontraumatic) Medical Decision Making Who provided with a sling and placed on anti-inflammatories and have her continue current plan to see Dr. Diaz on 05/28. Discussed steroid use however patient is very hypertensive. She states her normal blood pressures often times are over 200 systolic. She does take blood pressure medications. Patient is asymptomatic in regards to this at this time. Recommend she keep a blood pressure log over the next week. She has an appointment with PCP next week and they can adjust medications based on these logs. Lab Data Radiology Impressions Shoulder X-Ray 05/21/22 11:33 IMPRESSION: No acute findings. Discharge Plan Discharge Patient Disposition: Home Clinical Impression: Uncontrolled hypertension, Pain in right shoulder Condition: Stable Prescriptions: New diclofenac sodium 50 mg tablet,delayed release (DR/EC) 50 mg PO Q12H PRN (Reason: pain) Qty: 20 0RF Discontinued naproxen [Naprosyn] 500 mg tablet 500 mg PO BID PRN (Reason: pain) Qty: 20 0RF No Action (DME) ASO See Rx Instructions .Route .MEDSUPPLY Qty: 1 0RF Rx Instructions: As directed (DME) night splint to left See Rx Instructions .Route .MEDSUPPLY Qty: 1 0RF Rx Instructions: As directed fluoxetine 20 mg capsule 60 mg PO DAILY Qty: 90 1RF Rx Instructions: Take 3 capsules every morning; stop 40 mg dose quetiapine 150 mg tablet extended release 24 hr 150 mg PO DAILY Qty: 30 1RF Rx Instructions: Take one tablet by mouth each day at least 1 hour before bedtime trazodone 150 mg tablet 150 mg PO .qhs PRN (Reason: insomnia) Qty: 30 0RF Rx Instructions: Take 1/2 to 1 tablet at bedtime, if needed for insomnia clonazepam 0.5 mg tablet 0.5 mg PO BID PRN (Reason: anxiety/panic) Qty: 60 1RF Rx Instructions: Take 1 tablet up to twice a day, if needed for anxiety/panic Ubrelvy 100 mg tablet See Rx Instructions .ROUTE .COMPLEX Qty: 10 3RF Dose Instruction: TAKE 1 TABLET BY MOUTH ONCE AT ONSET OF HEADACHE, MAX 1 TABLET IN 24 HOURS Rx Instructions: TAKE 1 TABLET BY MOUTH ONCE AT ONSET OF HEADACHE, MAX 1 TABLET IN 24 HOURS diclofenac sodium [Voltaren Arthritis Pain] 1 % gel 4 g topical QID PRN (Reason: Pain) Qty: 100 0RF Rx Instructions: apply to single knee, ankle, foot; for foot includes sole/toes/top of foot diazepam [Valium] 5 mg tablet 5 mg PO DAILY Qty: 2 0RF amlodipine 5 mg Tablet 5 mg PO BEDTIME@2200 albuterol sulfate 90 mcg/actuation Hfa Aerosol Inhaler 1 - 2 puff INHALATION Q4H PRN (Reason: Shortness Of Breath) aspirin 81 mg Tablet,Chewable 81 mg PO QAM ipratropium-albuterol 0.5 mg-3 mg(2.5 mg base)/3 mL solution for nebulization 3 ml INHALATION DAILY@0800 polyethylene glycol 3350 [Miralax] 17 gram/dose powder 17 g PO DAILY PRN (Reason: Constipation) budesonide-formoterol [Symbicort] 160-4.5 mcg/actuation Hfa Aerosol Inhaler 2 puff INHALATION Q12H Trulance 3 mg tablet 3 mg PO DAILY pantoprazole 40 mg Tablet,Delayed Release (Dr/Ec) 40 mg PO BID Qty: 60 0RF chlorthalidone 50 mg tablet 50 mg PO QAM losartan 100 mg tablet 100 mg PO QAM tizanidine 4 mg tablet 4 mg PO Q8H PRN (Reason: Muscle Spasm) montelukast 10 mg tablet 10 mg PO DAILY gabapentin 100 mg capsule 100 mg PO TID PRN (Reason: Pain) hydroxychloroquine 200 mg tablet 200 mg PO BID metoprolol tartrate 25 mg tablet 25 mg PO BID cholecalciferol (vitamin D3) 1,250 mcg (50,000 unit) capsule 50,000 unit PO Q30D sucralfate [Carafate] 1 gram tablet 1 g PO Q6H Qty: 60 0RF Minipress 5 mg capsule 5 mg PO .q hs Rx Instructions: Take one capsule by mouth every night; stop the 4 mg dose Discharge Orders: Discharge ED (Routine); Ordered 05/21/22 Ordered By: Omaira Adames Referrals: Alpesh Garcia MD [Primary Care Provider] - Stand Alone Forms: Work/School Release Coding Level of Care Code ED Program Facilitator for 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
== END 2022-05-21 13:21 | disposition home or self-care (01) ==
PROVIDERS: Emergency Provider Physician Assistant; PCP Family Medicine
DX: M25.511 Pain in right shoulder (principal); I10 Essential (primary) hypertension; Z79.82 Long term (current) use of aspirin; J44.9 Chronic obstructive pulmonary disease, unspecified; Z77.22 Contact with and (suspected) exposure to environmental tobacco smoke (acute) (chronic)
CPT/HCPCS: 73030; 93005; 99284

== ENCOUNTER → 2022-05-28 15:06 | Outpatient (BNVA) | payer MEDICAID, SELFPAY | PROVIDERS: PCP Family Medicine; Visit Provider Orthopaedic Surgery | DX: M25.511 Pain in right shoulder (principal) | CPT/HCPCS: 99203 ==

== ENCOUNTER 2022-06-15 17:05 | Emergency (ER) | payer MEDICAID, SELFPAY ==
[2022-06-15 17:07] VITALS: BP 196/125; PULSE 138; RESP 26; TEMP 37.9; O2SAT 97; BMI 42.0
--- NOTE | 2022-06-15 17:37 | ED_ITS ---
HPI - SOB/Dyspnea General: Chief Complaint: Shortness of Breath/Dyspnea Stated Complaint: SOB Time Seen by Provider: 06/15/22 17:23 History of Present Illness: HPI Narrative: Patient comes in with shortness of breath, fever, congestion, cough. States the symptoms started yesterday. Associated symptoms: Reports fever(s); Deny abdominal pain, chest pain, nausea, palpitations, polyuria or vomiting Review of Systems Const: Reports: fever(s), chills and body aches Eyes: Denies: change in vision or blurry vision ENMT: Reports: throat pain; Denies: odynophagia Card: Denies: chest pain or palpitations Resp: Reports: dyspnea and non-productive cough; Denies: productive cough GI: Denies: abdominal pain, nausea or vomiting : Denies: flank pain or dysuria Musc: Denies: neck pain or back pain Skin/Breast: Denies: rash or pruritus Neuro: Denies: headache(s) or numbness in extremities Psych: Denies: anxiety or change in appetite Endo: Denies: polyuria or excessive sweating PFSH ED PFSH: Medical History Abnormal reflex COPD (chronic obstructive pulmonary disease) GERD (gastroesophageal reflux disease) HTN (hypertension) Neck pain Psychiatric care Psychiatric care Surgical History History of cholecystectomy Hx of section Hx of colonoscopy 2020 [facility] Hx of hysterectomy Family History Family/Other Cancer Diabetes Father Diabetes Hyperlipidemia Hypertension Stroke Mother Hypertension Stroke CAD (coronary artery disease) Rheumatoid arthritis Other Major depressive disorder, recurrent severe without psychotic features Panic disorder [episodic paroxysmal anxiety] Post-traumatic stress disorder, chronic Social History Smoking and tobacco status: never smoked Second hand smoke exposure: Yes Alcohol intake: never History of recent travel: No Physical Exam Const: COMMON NORMALS: no acute distress, patient oriented x3, healthy appearing and alert HENMT: COMMON NORMALS: normocephalic and atraumatic HEAD & SCALP: normoc ephalic and atraumatic OTHER: Oropharyngeal erythema Eye: COMMON NORMALS: Equal, round and reactive pupils present and EOMs intact bilaterally PUPIL: Yes Equal, round and reactive pupils present OTHER: Bilateral glassy eyed appearance Neck/C-Spine: COMMON NORMALS: full ROM and supple Resp: COMMON NORMALS: normal respiratory effort, No retractions and No use of accessory muscles Cardio: COMMON NORMALS: regular rhythm RHYTHM: regular rhythm OTHER: Tachycardia GI: COMMON NORMALS: Normal to inspection, nondistended, normoactive bowel sounds present, Soft to palpation and non-tender PALPATION: Yes Soft to palpation Back/Pelvis: COMMON NORMALS: thoracic and lumbar spine normal to inspection and no thoracic nor lumbar tenderness Extremity: COMMON NORMALS: normal to inspection and full ROM Neuro: COMMON NORMALS: patient oriented x3 SENSORIUM/ORIENTATION: Yes alert Psych: COMMON NORMALS: mental status grossly normal and cooperative Skin: COMMON NORMALS: no rashes or lesions noted and no wounds GENERAL SKIN EXAM: no rashes or lesions noted Course Vital Signs: Vital signs: Vital Signs Temperature 100.3 F H 06/15/22 17:07 Pulse Rate 138 H 06/15/22 17:07 Respiratory Rate 26 H 06/15/22 17:07 Blood Pressure 196/125 06/15/22 17:07 Pulse Oximetry 97 06/15/22 17:07 Oxygen Delivery Me thod 06/15/22 17:07 MDM - SOB/Dyspnea Medical Decision Making Patient comes in with shortness of breath, fever, congestion, cough. States the symptoms started yesterday. On physical exam she is tachycardic with mildly dry mucous membranes. Her lungs are clear to auscultation. She has bilateral glassy eyed appearance, nasal congestion. We will give her a dose of steroid, swab for COVID, and discharged home with precautions to return for worsening or changing symptoms Discharge Plan Discharge Patient Disposition: Home Clinical Impression: Respiratory illness Condition: Stable Prescriptions: New prednisone 20 mg tablet 60 mg PO DAILY 3 Days Qty: 12 0RF No Action (DME) ASO See Rx Instructions .Route .MEDSUPPLY Qty: 1 0RF Rx Instructions: As directed (DME) night splint to left See Rx Instructions .Route .MEDSUPPLY Qty: 1 0RF Rx Instructions: As directed fluoxetine 20 mg capsule 60 mg PO DAILY Qty: 90 1RF Rx Instructions: Take 3 capsules every morning; stop 40 mg dose quetiapine 150 mg tablet extended release 24 hr 150 mg PO DAILY Qty: 30 1RF Rx Instructions: Take one tablet by mouth each day at least 1 hour before bedtime trazodone 150 mg tablet 150 mg PO .qhs PRN (Reason: insomnia) Qty: 30 0RF Rx Instructions: Take 1/2 to 1 tablet at bedtime, if needed for insomnia clonazepam 0.5 mg tablet 0.5 mg PO BID PRN (Reason: anxiety/panic) Qty: 60 1RF Rx Instructions: Take 1 tablet up to twice a day, if needed for anxiety/panic Ubrelvy 100 mg tablet See Rx Instructions .ROUTE .COMPLEX Qty: 10 3RF Dose Instruction: TAKE 1 TABLET BY MOUTH ONCE AT ONSET OF HEADACHE, MAX 1 TABLET IN 24 HOURS Rx Instructions: TAKE 1 TABLET BY MOUTH ONCE AT ONSET OF HEADACHE, MAX 1 TABLET IN 24 HOURS diclofenac sodium [Voltaren Arthritis Pain] 1 % gel 4 g topical QID PRN (Reason: Pain) Qty: 100 0RF Rx Instructions: apply to single knee, ankle, foot; for foot includes sole/toes/top of foot diazepam [Valium] 5 mg tablet 5 mg PO DAILY Qty: 2 0RF amlodipine 5 mg Tablet 5 mg PO BEDTIME@2200 albuterol sulfate 90 mcg/actuation Hfa Aerosol Inhaler 1 - 2 puff INHALATION Q4H PRN (Reason: Shortness Of Breath) aspirin 81 mg Tablet,Chewable 81 mg PO QAM ipratropium-albuterol 0.5 mg-3 mg(2.5 mg base)/3 mL solution for nebulization 3 ml INHALATION DAILY@0800 polyethylene glycol 3350 [Miralax] 17 gram/dose powder 17 g PO DAILY PRN (Reason: Constipation) budesonide-formoterol [Symbicort] 160-4.5 mcg/actuation Hfa Aerosol Inhaler 2 puff INHALATION Q12H Trulance 3 mg tablet 3 mg PO DAILY pantoprazole 40 mg Tablet,Delayed Release (Dr/Ec) 40 mg PO BID Qty: 60 0RF chlorthalidone 50 mg tablet 50 mg PO QAM losartan 100 mg tablet 100 mg PO QAM tizanidine 4 mg tablet 4 mg PO Q8H PRN (Reason: Muscle Spasm) montelukast 10 mg tablet 10 mg PO DAILY gabapentin 100 mg capsule 100 mg PO TID PRN (Reason: Pain) hydroxychloroquine 200 mg tablet 200 mg PO BID metoprolol tartrate 25 mg tablet 25 mg PO BID cholecalciferol (vitamin D3) 1,250 mcg (50,000 unit) capsule 50,000 unit PO Q30D sucralfate [Carafate] 1 gram tablet 1 g PO Q6H Qty: 60 0RF Minipress 5 mg capsule 5 mg PO .q hs Rx Instructions: Take one capsule by mouth every night; stop the 4 mg dose diclofenac sodium 50 mg tablet,delayed release (DR/EC) 50 mg PO Q12H PRN (Reason: pain) Qty: 20 0RF Discharge Orders: Discharge ED (Routine); Ordered 06/15/22 Ordered By: Olivier Marshall Referrals: Alpesh Garcia MD [Primary Care Provider] - Patient Instructions: Viral Syndrome (ED) Stand Alone Forms: Work/School Release Coding Level of Care Code ED 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
[2022-06-15] MEDS: dexamethasone 4 mg Tablet 10 MG PO (17:43)
[2022-06-15 17:46] VITALS: BP 188/99; PULSE 125; RESP 18; O2SAT 95
[2022-06-15 19:53] LABS: Adenovirus Not Detected (NOT DETECT); Chlamydia Pneumoniae Not Detected (NOT DETECT); Coronavirus 229E,HKU1,NL63,OC4 Not Detected (NOT DETECT); Human Metapneumovirus Not Detected (NOT DETECT); Human Rhinovirus/Enterovirus Not Detected (NOT DETECT); Influenza A Not Detected (NOT DETECT); Influenza A H1 Not Detected (NOT DETECT); Influenza A H1-2009 Not Detected (NOT DETECT); Influenza A H3 Not Detected (NOT DETECT); Influenza B Not Detected (NOT DETECT); Mycoplasma Pneumoniae Not Detected (NOT DETECT); Parainfluenza Virus Type 1 Not Detected (NOT DETECT); Parainfluenza Virus Type 2 Not Detected (NOT DETECT); Parainfluenza Virus Type 3 Not Detected (NOT DETECT); Parainfluenza Virus Type 4 Not Detected (NOT DETECT); Respiratory Syncytial Virus A Not Detected (NOT DETECT); Respiratory Syncytial Virus B Not Detected (NOT DETECT); SARS-COV-2 Detected (NOT DETECT)
--- NOTE | 2022-06-16 09:54 | PC.NURSE ---
Pt notified of positive covid test 06/16 @ 8236 by this RN.
== END 2022-06-15 17:52 | disposition home or self-care (01) ==
PROVIDERS: Emergency Provider Emergency Medicine; PCP Family Medicine
DX: U07.1 COVID-19 (principal); Z79.82 Long term (current) use of aspirin; J44.9 Chronic obstructive pulmonary disease, unspecified; I10 Essential (primary) hypertension; Z77.22 Contact with and (suspected) exposure to environmental tobacco smoke (acute) (chronic)
CPT/HCPCS: 87635; 99283; J8540

== ENCOUNTER 2022-07-10 08:26 | Day surgery (SDC) | payer MEDICAID, SELFPAY ==
[2022-04-18 14:45] VITALS: BMI 42.0
[2022-07-09 09:40] VITALS: BMI 42.0
[2022-07-10 08:45] VITALS: BP 199/119; PULSE 74; RESP 18; TEMP 36.2; O2SAT 95
[2022-07-10] MEDS: sodium chloride 0.9% 1,000 ML 30 ML IV (08:53)
--- NOTE | 2022-07-10 09:52 | ANES.PREANE2 ---
Pre-Anesthetic Assessment Height/Weight: Height 1.63 m Weight 111.13 kg Temp Pulse Resp BP Pulse Ox O2 Del Method 97.2 F L 74 18 199/119 95 07/10/22 08:45 07/10/22 08:45 07/10/22 08:45 07/10/22 08:45 07/10/22 08:45 07/10/22 08:45 Operation Date: 07/10/22 10:00 Proposed Procedures p EGD Dilation W/ Balloon [id number],K21.9(Not Applicable) - Amos Holman DO Familial anesthetic complications: none Was Beta Gaby taken within 24 hours: Yes Was Clonidine taken within 24 hours: N/A Last intake: Intake Last Liquid Date 07/09/22 Last Liquid Time 23:00 Last Solid Date 07/09/22 Last Solid Time 22:00 Social No alcohol and No tobacco Exam alert, oriented x 3, clear to auscultation bilaterally and regular rate & rhythm Airway Mallampati: Class II Dentition: full Pulmonary Chronic Obstructive Pulmonary Disease CV/HEM Hypertension GI Gastroesophageal Reflux Disease Metabolic Morbid Obesity Anesthetic Plan ASA status: 3 Anesthesia: MAC Risk of > 500 ml blood loss (7ml/kg in children): No Medications/Allergies Home Medications Medication Instructions Recorded Confirmed Last Taken Type albuterol sulfate 90 mcg/actuation 1 - 2 puff inhalation Q4H PRN 02/23/21 07/09/22 07/09/22 History aerosol inhaler Shortness Of Breath amlodipine 5 mg tablet 5 mg PO BEDTIME@2200 02/23/21 07/09/22 07/09/22 History aspirin 81 mg chewable tablet 81 mg PO QAM 02/23/21 07/09/22 07/09/22 History budesonide-formoterol HFA 160 2 puff inhalation Q12H 03/27/21 07/09/22 07/09/22 History mcg-4.5 mcg/actuation aerosol inhaler (Symbicort) ipratropium 0.5 mg-albuterol 3 mg 3 ml inhalation DAILY@0800 03/27/21 07/09/22 07/09/22 History (2.5 mg base)/3 mL nebulization soln plecanatide 3 mg tablet (Trulance) 3 mg PO DAILY 03/27/21 07/09/22 07/09/22 History polyethylene glycol 3350 17 17 g PO DAILY PRN Constipation 03/27/21 07/09/22 07/09/22 History gram/dose oral powder (Miralax) ASO #1 ea 07/26/21 07/09/22 07/09/22 Rx night splint to left #1 ea 08/20/21 07/09/22 07/09/22 Rx pantoprazole 40 mg tablet,delayed 40 mg PO BID #60 tabs 11/21/21 07/09/22 07/09/22 Rx release ubrogepant 100 mg tablet (Ubrelvy) See Rx Instructions .Route 01/08/22 07/09/22 07/09/22 Rx .COMPLEX #10 tabs chlorthalidone 50 mg tablet 50 mg PO QAM 01/30/22 07/09/22 07/09/22 History cholecalciferol (vitamin D3) 1,250 50,000 unit PO Q30D 01/30/22 07/09/22 07/09/22 History mcg (50,000 unit) capsule gabapentin 100 mg capsule 100 mg PO TID PRN Pain 01/30/22 07/09/22 07/09/22 History hydroxychloroquine 200 mg tablet 200 mg PO BID 01/30/22 07/09/22 07/09/22 History losartan 100 mg tablet 100 mg PO QAM 01/30/22 07/09/22 07/09/22 History metoprolol tartrate 25 mg tablet 25 mg PO BID 01/30/22 07/09/22 07/09/22 History montelukast 10 mg tablet 10 mg PO DAILY 01/30/22 07/09/22 07/09/22 History sucralfate 1 gram tablet (Carafate) 1 g PO Q6H #60 tabs 01/30/22 07/09/22 07/09/22 Rx tizanidine 4 mg tablet 4 mg PO Q8H PRN Muscle Spasm 01/30/22 07/09/22 07/09/22 History diclofenac sodium 1 % topical gel 4 g topical QID PRN Pain #100 grams 05/16/22 07/09/22 07/09/22 Rx (Voltaren Arthritis Pain) diclofenac sodium 50 mg 50 mg PO Q12H PRN pain #20 tabs 05/21/22 07/09/22 07/09/22 Rx tablet,delayed release clonazepam 0.5 mg tablet 0.5 mg PO BID PRN anxiety/panic 06/20/22 07/09/22 07/09/22 Rx #60 tabs fluoxetine 20 mg capsule 60 mg PO DAILY #90 caps 06/20/22 07/09/22 07/09/22 Rx prazosin 5 mg capsule (Minipress) 5 mg PO .q hs #30 caps 06/20/22 07/09/22 07/09/22 Rx quetiapine 150 mg tablet,extended 150 mg PO DAILY #30 tabs 06/20/22 07/09/22 07/09/22 Rx release 24 hr trazodone 150 mg tablet 150 mg PO .qhs PRN insomnia #30 06/20/22 07/09/22 07/09/22 Rx tabs Allergies Allergy/AdvReac Type Severity Reaction Status Date / Time No Known Allergies Allergy Verified 07/08/22 13:37 Current Medications Generic Name Dose Route Start Last Admin Trade Name Freq PRN Reason Stop Dose Admin Sodium Chloride 1,000 mls @ 30 mls/hr 07/10/22 08:45 07/10/22 08:53 Sodium Chloride 0.9% IV 07/11/22 08:44 30 mls/hr .Q24H JAMES Administration PFSH Anesthesia Medical History Abnormal reflex COPD (chronic obstructive pulmonary disease) GERD (gastroesophageal reflux disease) HTN (hypertension) Neck pain Psychiatric care Psychiatric care Surgical History History of cholecystectomy Hx of section Hx of colonoscopy 2020 [facility] Hx of hysterectomy Family History Family/Other Cancer Diabetes Father Diabetes Hyperlipidemia Hypertension Stroke Mother Hypertension Stroke CAD (coronary artery disease) Rheumatoid arthritis Other Major depressive disorder, recurrent severe without psychotic features Panic disorder [episodic paroxysmal anxiety] Post-traumatic stress disorder, chronic Social History Smoking and tobacco status: never smoked Second hand smoke exposure: Yes Alcohol intake: never History of recent travel: No Data Anesthesia Cardiac Studies: No Data to Display
--- NOTE | 2022-07-10 10:31 | P.HP_ITS ---
Providers/Chief Complaint Primary Care Provider: Alpesh Garcia MD History of Present Illness Nnai Pryor is a 51 year old female here for EGD with possible balloon dilation Medications/Allergies Home Medications Medication Instructions Recorded Confirmed Last Taken Type albuterol sulfate 90 mcg/actuation 1 - 2 puff inhalation Q4H PRN 02/23/21 07/09/22 07/09/22 History aerosol inhaler Shortness Of Breath amlodipine 5 mg tablet 5 mg PO BEDTIME@2200 02/23/21 07/09/22 07/09/22 History aspirin 81 mg chewable tablet 81 mg PO QAM 02/23/21 07/09/22 07/09/22 History budesonide-formoterol HFA 160 2 puff inhalation Q12H 03/27/21 07/09/22 07/09/22 History mcg-4.5 mcg/actuation aerosol inhaler (Symbicort) ipratropium 0.5 mg-albuterol 3 mg 3 ml inhalation DAILY@0800 03/27/21 07/09/22 07/09/22 History (2.5 mg base)/3 mL nebulization soln plecanatide 3 mg tablet (Trulance) 3 mg PO DAILY 03/27/21 07/09/22 07/09/22 History polyethylene glycol 3350 17 17 g PO DAILY PRN Constipation 03/27/21 07/09/22 07/09/22 History gram/dose oral powder (Miralax) ASO #1 ea 07/26/21 07/09/22 07/09/22 Rx night splint to left #1 ea 08/20/21 07/09/22 07/09/22 Rx pantoprazole 40 mg tablet,delayed 40 mg PO BID #60 tabs 11/21/21 07/09/22 07/09/22 Rx release ubrogepant 100 mg tablet (Ubrelvy) See Rx Instructions .Route 01/08/22 07/09/22 07/09/22 Rx .COMPLEX #10 tabs chlorthalidone 50 mg tablet 50 mg PO QAM 01/30/22 07/09/22 07/09/22 History cholecalciferol (vitamin D3) 1,250 50,000 unit PO Q30D 01/30/22 07/09/22 07/09/22 History mcg (50,000 unit) capsule gabapentin 100 mg capsule 100 mg PO TID PRN Pain 01/30/22 07/09/22 07/09/22 History hydroxychloroquine 200 mg tablet 200 mg PO BID 01/30/22 07/09/22 07/09/22 History losartan 100 mg tablet 100 mg PO QAM 01/30/22 07/09/22 07/09/22 History metoprolol tartrate 25 mg tablet 25 mg PO BID 01/30/22 07/09/22 07/09/22 History montelukast 10 mg tablet 10 mg PO DAILY 01/30/22 07/09/22 07/09/22 History sucralfate 1 gram tablet (Carafate) 1 g PO Q6H #60 tabs 01/30/22 07/09/22 07/09/22 Rx tizanidine 4 mg tablet 4 mg PO Q8H PRN Muscle Spasm 01/30/22 07/09/22 07/09/22 History diclofenac sodium 1 % topical gel 4 g topical QID PRN Pain #100 grams 05/16/22 07/09/22 07/09/22 Rx (Voltaren Arthritis Pain) diclofenac sodium 50 mg 50 mg PO Q12H PRN pain #20 tabs 05/21/22 07/09/22 07/09/22 Rx tablet,delayed release clonazepam 0.5 mg tablet 0.5 mg PO BID PRN anxiety/panic 06/20/22 07/09/22 07/09/22 Rx #60 tabs fluoxetine 20 mg capsule 60 mg PO DAILY #90 caps 06/20/22 07/09/22 07/09/22 Rx prazosin 5 mg capsule (Minipress) 5 mg PO .q hs #30 caps 06/20/22 07/09/22 07/09/22 Rx quetiapine 150 mg tablet,extended 150 mg PO DAILY #30 tabs 06/20/22 07/09/22 07/09/22 Rx release 24 hr trazodone 150 mg tablet 150 mg PO .qhs PRN insomnia #30 06/20/22 07/09/22 07/09/22 Rx tabs Allergies Allergy/AdvReac Type Severity Reaction Status Date / Time No Known Allergies Allergy Verified 07/08/22 13:37 PFSH Acute PFSH: Medical History Abnormal reflex COPD (chronic obstructive pulmonary disease) GERD (gastroesophageal reflux disease) HTN (hypertension) Neck pain Psychiatric care Psychiatric care Surgical History History of cholecystectomy Hx of section Hx of colonoscopy 2020 [facility] Hx of hysterectomy Family History Family/Other Cancer Diabetes Father Diabetes Hyperlipidemia Hypertension Stroke Mother Hypertension Stroke CAD (coronary artery disease) Rheumatoid arthritis Other Major depressive disorder, recurrent severe without psychotic features Panic disorder [episodic paroxysmal anxiety] Post-traumatic stress disorder, chronic Social History Smoking and tobacco status: never smoked Second hand smoke exposure: Yes Alcohol intake: never History of recent travel: No Vitals/I&O/Wt Last Vital Signs Temp 97.2 F L 07/10/22 08:45 Pulse 74 07/10/22 08:45 Resp 18 07/10/22 08:45 BP 199/119 07/10/22 08:45 Pulse Ox 95 07/10/22 08:45 O2 Del Method 07/10/22 08:45 Weight last 48 hrs Weight 245 lb A&P Assessment and plan (1) Dysphagia: Status: Acute Plan EGD with possible balloon dilation Attestations Medical Necessity Statement*: Home Coding Level of Care Code Acute Glued Wood Tester for Chg Fwd Diagnoses Dysphagia R13.10
[2022-07-10 10:50] VITALS: BP 157/77; PULSE 88; RESP 18; O2SAT 94
--- NOTE | 2022-07-10 10:58 | ANE.PACU2 ---
Inpatient post-anesthesia follow up: Airway intact: Yes Vital signs: Temperature 97.2 F Pulse Rate 74 Respiratory Rate 18 Blood Pressure 199/119 Pulse Oximetry 95 Oxygen Delivery Me thod Room Air Oxygen Flow Rate Fraction of Inspir ed Oxygen Hydration adequate: Yes Nausea and vomiting: No Pain level: 1 Mental status: Baseline
[2022-07-10 11:00] VITALS: BP 150/107; PULSE 75; RESP 18; O2SAT 97
[2022-07-10 11:13] VITALS: BP 151/89; PULSE 73; RESP 18; O2SAT 98
== END 2022-07-10 11:20 | disposition home or self-care (01) ==
PROVIDERS: PCP Family Medicine; Visit Provider Surgery
DX: R13.10 Dysphagia, unspecified (principal); Z79.82 Long term (current) use of aspirin; J44.9 Chronic obstructive pulmonary disease, unspecified; K21.9 Gastro-esophageal reflux disease without esophagitis; I10 Essential (primary) hypertension; E66.01 Morbid (severe) obesity due to excess calories; Z68.41 Body mass index [BMI] 40.0-44.9, adult; K29.50 Unspecified chronic gastritis without bleeding; B96.81 Helicobacter pylori [H. pylori] as the cause of diseases classified elsewhere
CPT/HCPCS: 43239; 43249; 88305; 88342; J2704; J3490; J7030

== ENCOUNTER 2022-07-13 19:59 | Emergency (ER) | payer MEDICAID, SELFPAY ==
[2022-07-13 20:15] VITALS: BP 199/118; PULSE 100; RESP 18; TEMP 36.8; O2SAT 98; BMI 42.0
--- NOTE | 2022-07-13 20:42 | W.ED.GENADLT ---
HPI - General Adult General: Chief complaint: Dental/Oral Stated complaint: throat pain Time Seen by Provider: 07/13/22 20:23 Source: patient Mode of arrival: ambulatory Limitations: no limitations History of Present Illness: 51-year-old female states that she had a an EGD done on the with an esophageal dilation states today she has been having some throat pain and feels like she is having difficult time swallowing she denies any vomiting or diarrhea denies any abdominal pain at this time. Denies any fever Associated symptoms: Deny chest pain, dyspnea, headache(s), nausea, rash or vomiting Review of Systems Const: Denies: fever(s), chills, body aches or change in appetite Eyes: Denies: blurry vision or eye discomfort ENMT: Reports: throat pain Card: Denies: chest pain Resp: Denies: dyspnea GI: Denies: abdominal pain, nausea, vomiting or diarrhea : Denies: dysuria Musc: Denies: neck pain or back pain Skin/Breast: Denies: rash Neuro: Denies: headache(s) Psych: Denies: depression Rui/Lymph: Denies: easy bruising All/Imm: Denies: urticaria PFSH ED PFSH: Medical History Abnormal reflex COPD (chronic obstructive pulmonary disease) GERD (gastroesophageal reflux disease) HTN (hypertension) Neck pain Psychiatric care Psychiatric care Surgical History History of cholecystectomy Hx of section Hx of colonoscopy 2020 [facility] Hx of hysterectomy Family History Family/Other Cancer Diabetes Father Diabetes Hyperlipidemia Hypertension Stroke Mother Hypertension Stroke CAD (coronary artery disease) Rheumatoid arthritis Other Major depressive disorder, recurrent severe without psychotic features Panic disorder [episodic paroxysmal anxiety] Post-traumatic stress disorder, chronic Social History Smoking and tobacco status: never smoked Second hand smoke exposure: Yes Alcohol intake: never History of recent travel: No Physical Exam Const: COMMON NORMALS: no acute distress, patient oriented x3 and healthy appearing HENMT: COMMON NORMALS: normocephalic and atraumatic HEAD & SCALP: normocephalic and atraumatic Eye: COMMON NORMALS: Equal, round and reactive pupils present and EOMs intact bilaterally PUPIL: Yes Equal, round and reactive pupils present Neck/C-Spine: COMMON NORMALS: full ROM and supple Chest: COMMONS NORMALS: normal inspection of the chest and normal palpation of entire chest wall Resp: COMMON NORMALS: normal respiratory effort, No retractions, No use of accessory muscles and clear to auscultation bilaterally AUSCULTATION: clear to auscultation bilaterally Cardio: COMMON NORMALS: regular rate, regular rhythm and No murmurs present (Cardio) RATE: regular rate RHYTHM: regular rhythm GI: COMMON NORMALS: Normal to inspection, nondistended, normoactive bowel sounds present, Soft to palpation, non-tender and no masses PALPATION: Yes Soft to palpation Extremity: COMMON NORMALS: normal to inspection and full ROM Neuro: COMMON NORMALS: patient oriented x3, moves all extremities and no focal motor deficits Psych: COMMON NORMALS: mental status grossly normal, Normal thought process present and cooperative THOUGHT PROCESS: Normal thought process present Skin: COMMON NORMALS: no rashes or lesions noted and no wounds GENERAL SKIN EXAM: no rashes or lesions noted Course Vital Signs: Vital signs: Vital Signs Temperature 98.3 F 07/13/22 20:15 Pulse Rate 82 07/13/22 21:47 Respiratory Rate 18 07/13/22 20:15 Blood Pressure 203/137 07/13/22 21:47 Pulse Oximetry 95 07/13/22 21:47 Oxygen Delivery Me thod 07/13/22 20:15 MDM - General Adult Medical Decision Making Patient presents here with dysphagia she is well-appearing here handling her secretions CAT scan shows no signs of perforation she is to follow-up with Dr. Holman next week return if worsening. Lab Data : 07/13/22 21:15 07/13/22 21:[address] 07/13/22 21:05 IMPRESSION: No acute findings. Neck CT 07/13/22 21:05 IMPRESSION: No masses or adenopathy. Laboratory Results WBC 6.9 10^3/uL (4.0-10.0) 07/13/22 21:15 RBC 4.42 10^6/uL (4.1-5.3) 07/13/22 21:15 Hgb 12.5 g/dL (11.5-15.3) 07/13/22 21:15 Hct 39.7 % (37.0-47.0) 07/13/22 21:15 MCV 89.8 fl (81-99) 07/13/22 21:15 MCH 28.3 pg (28.0-34.0) 07/13/22 21:15 MCHC 31.5 g/dL (30.0-36.0) 07/13/22 21:15 RDW 14.2 % (12.1-15.1) 07/13/22 21:15 Plt Count 302 10^3/cmm (130-400) 07/13/22 21:15 MPV 9.8 fL (7.4-10.4) 07/13/22 21:15 Neut % (Auto) 60.6 % 07/13/22 21:15 Lymph % (Auto) 27.2 % 07/13/22 21:15 Reeves % (Auto) 10.0 % 07/13/22 21:15 Eos % (Auto) 1.5 % 07/13/22 21:15 Baso % (Auto) 0.6 % 07/13/22 21:15 Neut # (Auto) 4.17 10^3/uL (1.8-7.7) 07/13/22 21:15 Lymph # (Auto) 1.9 10^3/uL (0.8-4.8) 07/13/22 21:15 Reeves # (Auto) 0.7 10^3/uL (0.2-0.9) 07/13/22 21:15 Eos # (Auto) 0.1 10^3/uL (0.0-0.8) 07/13/22 21:15 Baso # (Auto) 0.0 10^3/uL (0.0-0.1) 07/13/22 21:15 Nucleated RBC % (auto) 0 % 07/13/22 21:15 Nucleated RBCs # 0.0 /100WBC 07/13/22 21:15 Sodium 138 mmol/L (136-145) 07/13/22 21:15 Potassium 3.6 mmol/L (3.5-5.1) 07/13/22 21:15 Chloride 99 mmol/L (98-107) 07/13/22 21:15 Carbon Dioxide 29 mmol/L (22-29) 07/13/22 21:15 Anion Gap 13.6 (5-19) 07/13/22 21:15 BUN 8 mg/dL (6-20) 07/13/22 21:15 Creatinine 0.6 mg/dL (0.5-0.9) 07/13/22 21:15 GFR Calculation 105.8 mL/min (90-130) 07/13/22 21:15 Glucose 107 mg/dL (65-115) 07/13/22 21:15 Calculated Osmolality 285 mOsm/kg (285-295) 07/13/22 21:15 Calcium 9.3 mg/dL (8.5-10.5) 07/13/22 21:15 Total Bilirubin 0.7 mg/dL (0.15-1.2) 07/13/22 21:15 AST 19 U/L (0-32) 07/13/22 21:15 ALT 21 U/L (0-33) 07/13/22 21:15 Alkaline Phosphatase 133 U/L (35-105) H 07/13/22 21:15 Total Protein 7.3 g/dL (6.6-8.7) 07/13/22 21:15 Albumin 4.3 g/dL (3.5-5.2) 07/13/22 21:15 Globulin 3.0 g/dL (1.3-4.6) 07/13/22 21:15 SARS-CoV-2 Ag (Rapid) Negative (Negative) 07/13/22 20:45 Group A Strep Rapid Negative (Negative) 07/13/22 20:45 Discharge Plan Discharge Patient Disposition: Home Clinical Impression: Dysphagia Condition: Stable Prescriptions: No Action (DME) ASO See Rx Instructions .Route .MEDSUPPLY Qty: 1 0RF Rx Instructions: As directed (DME) night splint to left See Rx Instructions .Route .MEDSUPPLY Qty: 1 0RF Rx Instructions: As directed Ubrelvy 100 mg tablet See Rx Instructions .ROUTE .COMPLEX Qty: 10 3RF Dose Instruction: TAKE 1 TABLET BY MOUTH ONCE AT ONSET OF HEADACHE, MAX 1 TABLET IN 24 HOURS Rx Instructions: TAKE 1 TABLET BY MOUTH ONCE AT ONSET OF HEADACHE, MAX 1 TABLET IN 24 HOURS diclofenac sodium [Voltaren Arthritis Pain] 1 % gel 4 g topical QID PRN (Reason: Pain) Qty: 100 0RF Rx Instructions: apply to single knee, ankle, foot; for foot includes sole/toes/top of foot fluoxetine 20 mg capsule 60 mg PO DAILY Qty: 90 0RF Rx Instructions: Take 3 capsules every morning quetiapine 150 mg tablet extended release 24 hr 150 mg PO DAILY Qty: 30 0RF Rx Instructions: Take one tablet by mouth each day at least 1 hour before bedtime trazodone 150 mg tablet 150 mg PO .qhs PRN (Reason: insomnia) Qty: 30 0RF Rx Instructions: Take 1/2 to 1 tablet at bedtime, if needed for insomnia Minipress 5 mg capsule 5 mg PO .q hs Qty: 30 0RF Rx Instructions: Take one capsule by mouth every night clonazepam 0.5 mg tablet 0.5 mg PO BID PRN (Reason: anxiety/panic) Qty: 60 0RF Rx Instructions: Take 1 tablet up to twice a day, if needed for anxiety/panic amlodipine 5 mg Tablet 5 mg PO BEDTIME@2200 albuterol sulfate 90 mcg/actuation Hfa Aerosol Inhaler 1 - 2 puff INHALATION Q4H PRN (Reason: Shortness Of Breath) aspirin 81 mg Tablet,Chewable 81 mg PO QAM ipratropium-albuterol 0.5 mg-3 mg(2.5 mg base)/3 mL solution for nebulization 3 ml INHALATION DAILY@0800 polyethylene glycol 3350 [Miralax] 17 gram/dose powder 17 g PO DAILY PRN (Reason: Constipation) budesonide-formoterol [Symbicort] 160-4.5 mcg/actuation Hfa Aerosol Inhaler 2 puff INHALATION Q12H Trulance 3 mg tablet 3 mg PO DAILY pantoprazole 40 mg Tablet,Delayed Release (Dr/Ec) 40 mg PO BID Qty: 60 0RF chlorthalidone 50 mg tablet 50 mg PO QAM losartan 100 mg tablet 100 mg PO QAM tizanidine 4 mg tablet 4 mg PO Q8H PRN (Reason: Muscle Spasm) montelukast 10 mg tablet 10 mg PO DAILY gabapentin 100 mg capsule 100 mg PO TID PRN (Reason: Pain) hydroxychloroquine 200 mg tablet 200 mg PO BID metoprolol tartrate 25 mg tablet 25 mg PO BID cholecalciferol (vitamin D3) 1,250 mcg (50,000 unit) capsule 50,000 unit PO Q30D sucralfate [Carafate] 1 gram tablet 1 g PO Q6H Qty: 60 0RF diclofenac sodium 50 mg tablet,delayed release (DR/EC) 50 mg PO Q12H PRN (Reason: pain) Qty: 20 0RF Discharge Orders: Discharge ED (Routine); Ordered 07/13/22 Ordered By: Leon Moura Referrals: Amos Holman DO [Physician] - 1-3 days Alpesh Garcia MD [Primary Care Provider] - Discharge Diet: Advance as tolerated Discharge Activity: Resume usual activity Patient Instructions: Dysphagia (ED) Coding Level of Care Code ED [employer] Super[employer] for Chg Fwd Exam Comprehensive
[2022-07-13] MEDS: lidocaine 2% viscous 15 ML, aluminum-mag hydrox-simethicon 30 ML, sucralfate oral liq 1 GM PO (20:47)
[2022-07-13 21:02] LABS: Rapid Strep A Test Negative (Negative)
--- NOTE | 2022-07-13 21:05 | CTR_ITS ---
PROCEDURE INFORMATION: Exam: CT Neck With Contrast Exam date and time: 07/13/2022 9:28 PM Age: 51 years old Clinical indication: Other: Dysphagia TECHNIQUE: Imaging protocol: Computed tomography of the neck with contrast. Radiation optimization: All CT scans at this facility use at least one of these dose optimization techniques: automated exposure control; mA and/or kV adjustment per patient size (includes targeted exams where dose is matched to clinical indication); or iterative reconstruction. Contrast material: OMNI 350; Contrast volume: 60 ml; Contrast route: INTRAVENOUS (IV); COMPARISON: 1. MR cervical spin wo con* [id number] 2021-06-07 08:44 2. CR XR cervical spine 3V* [id number] 2021-04-17 16:56 RADIATION DOSE METRICS: Total DLP (mGy-cm): 323.01 FINDINGS: Pharynx: Unremarkable. No significant tonsillar enlargement. Larynx: Glottis a duct did limiting evaluation but grossly unremarkable otherwise. Prevertebral and retropharyngeal spaces: Unremarkable. Salivary glands: Bilateral parotid gland enlargement/adenosis. Thyroid: Normal. No enlarged or calcified nodules. Lymph nodes: Unremarkable. No lymphadenopathy. Trachea: Visualized trachea is unremarkable. Lungs: Unremarkable as visualized. Bones/joints: Unremarkable. No acute fracture. Soft tissues: Unremarkable. No significant soft tissue swelling. CT/CT neck w con* [id number] IMPRESSION: No masses or adenopathy.
--- NOTE | 2022-07-13 21:05 | CTR_ITS ---
PROCEDURE INFORMATION: Exam: CT Chest With Contrast; Diagnostic Exam date and time: 07/13/2022 9:36 PM Age: 51 years old Clinical indication: Other: Dysphagia TECHNIQUE: Imaging protocol: Diagnostic computed tomography of the chest with contrast. Radiation optimization: All CT scans at this facility use at least one of these dose optimization techniques: automated exposure control; mA and/or kV adjustment per patient size (includes targeted exams where dose is matched to clinical indication); or iterative reconstruction. Contrast material: OMNI 350; Contrast volume: 80 ml; Contrast route: INTRAVENOUS (IV); COMPARISON: CT angio chest w abd pel w con 01/30/2022 11:40 AM RADIATION DOSE METRICS: Total DLP (mGy-cm): 562.36 FINDINGS: Lungs: Lungs are clear. Pleural spaces: There is no pleural effusion or pneumothorax. Heart: There is mild cardiac enlargement. There is no pericardial effusion. Mediastinal space: The esophagus is normal. Lymph nodes: There is no mediastinal or hilar lymphadenopathy. Vasculature: The aorta is unremarkable. There is no aneurysm. The central pulmonary arteries are unremarkable. Intraperitoneal space: Visible structures in the upper abdomen are unremarkable. Bones/joints: Bones are unremarkable. Soft tissues: The extrathoracic soft tissues are unremarkable. CT/CT chest w con* [id number] IMPRESSION: No acute findings.
[2022-07-13 21:14] LABS: SARS Covid-2 Antigen Negative (Negative)
[2022-07-13 21:18] VITALS: BP 203/137; PULSE 82; O2SAT 98
[2022-07-13] MEDS: labetalol 5 mg/mL SDV 20mL 10 MG IVP (21:20)
[2022-07-13 21:22] LABS: Basophils % 0.6 %; Eosinophils # 0.1 10^3/uL (0.0-0.8); Eosinophils % 1.5 %; Hematocrit 39.7 % (37.0-47.0); Hemoglobin 12.5 g/dL (11.5-15.3); Lymphocytes # 1.9 10^3/uL (0.8-4.8); Lymphocytes % 27.2 %; Mean Corpuscular HGB Conc 31.5 g/dL (30.0-36.0); Mean Corpuscular Hemoglobin 28.3 pg (28.0-34.0); Mean Corpuscular Volume 89.8 fl (81-99); Mean Platelet Volume 9.8 fL (7.4-10.4); Monocytes # 0.7 10^3/uL (0.2-0.9); Neutrophils # 4.17 10^3/uL (1.8-7.7); Neutrophils % 60.6 %; Nucleated Red Blood Cells % 0 %; Platelet Count 302 10^3/cmm (130-400); Red Blood Count 4.42 10^6/uL (4.1-5.3); Red Cell Distribution Width 14.2 % (12.1-15.1); White Blood Count 6.9 10^3/uL (4.0-10.0)
[2022-07-13] MEDS: iohexol 350 mg/mL 100 mL Btl IV ×2 (21:31→21:47)
[2022-07-13 21:47] VITALS: BP 203/137; PULSE 82; O2SAT 95
[2022-07-13 21:56] LABS: Alanine Aminotransferase 21 U/L (0-33); Albumin Level 4.3 g/dL (3.5-5.2); Alkaline Phosphatase 133 U/L (35-105); Anion Gap 13.6 (5-19); Aspartate Amino Transferase 19 U/L (0-32); Blood Urea Nitrogen 8 mg/dL (6-20); Calcium 9.3 mg/dL (8.5-10.5); Carbon Dioxide 29 mmol/L (22-29); Chloride 99 mmol/L (98-107); Glomerular Filtration Rate 105.8 mL/min (90-130); Glucose 107 mg/dL (65-115); Osmolality Calculated 285 mOsm/kg (285-295); Potassium 3.6 mmol/L (3.5-5.1); Sodium 138 mmol/L (136-145); Total Bilirubin 0.7 mg/dL (0.15-1.2); Total Protein 7.3 g/dL (6.6-8.7)
[2022-07-13] MEDS: hyDRALAzine 20 mg/mL INJ 1 mL 10 MG IVP (22:08)
== END 2022-07-13 22:30 | disposition home or self-care (01) ==
PROVIDERS: Emergency Provider Emergency Medicine; PCP Family Medicine
DX: R13.10 Dysphagia, unspecified (principal); I10 Essential (primary) hypertension; J44.9 Chronic obstructive pulmonary disease, unspecified
CPT/HCPCS: 70491; 71260; 80053; 85025; 87081; 87426; 87880; 96374; 96375; 99285; J0360; J3490; Q9967

== ENCOUNTER → 2022-07-15 15:01 | Outpatient (BNVA) | payer MEDICAID, SELFPAY | PROVIDERS: PCP Family Medicine; Visit Provider Podiatrist Foot & Ankle Surgery | DX: M72.2 Plantar fascial fibromatosis (principal); M76.70 Peroneal tendinitis, unspecified leg | CPT/HCPCS: 99214 ==

== ENCOUNTER → 2022-07-30 15:20 | Outpatient (BNVA) | payer MEDICAID, SELFPAY | PROVIDERS: PCP Family Medicine; Visit Provider Surgery | DX: Z09 Encounter for follow-up examination after completed treatment for conditions other than malignant neoplasm (principal); R13.10 Dysphagia, unspecified; K21.9 Gastro-esophageal reflux disease without esophagitis; K22.2 Esophageal obstruction; B96.81 Helicobacter pylori [H. pylori] as the cause of diseases classified elsewhere; K29.70 Gastritis, unspecified, without bleeding | CPT/HCPCS: 99213 ==

== ENCOUNTER 2022-08-02 11:43 | Outpatient (CLI) | payer MEDICAID, SELFPAY ==
--- NOTE | 2022-08-02 11:47 | MM_ITS ---
WS: [id number] Bilateral screening 3D tomosynthesis digital mammogram, 08/02/2022 Clinical Data: SCREENING Comparison: 04/25/2021 Findings: The breast parenchymal pattern shows fibroglandular tissue. No spiculated masses or clustered calcifi cations are seen. There are no secondary signs of carcinoma. MM/[place] [id number] Impression: 1. Negative bilateral mammogram unchanged. 2. Recommend annual screening mammograms. BIRADS: 1-Negative FOLLOW UP: 1 Year Follow-up The CAD credit report checker was used.
== END 2022-08-02 11:44 | disposition home or self-care (01) ==
LOC: RAD 11:44
PROVIDERS: PCP Family Medicine; Visit Provider Family Medicine
DX: Z12.31 Encounter for screening mammogram for malignant neoplasm of breast (principal)
CPT/HCPCS: 77063; 77067

== ENCOUNTER 2022-08-07 10:50 | Emergency (ER) | payer MEDICAID, SELFPAY ==
[2022-08-07] VITALS (8 sets, daily range): BP systolic 103–167; BP diastolic 80–106; PULSE 71–89; RESP 15–18; TEMP 36.7; O2SAT 95–97; BMI 42.2
--- NOTE | 2022-08-07 11:41 | ED_ITS ---
HPI - Abdominal Pain General: Chief Complaint: Abdominal Pain Stated Complaint: abd pains Time Seen by Provider: 08/07/22 11:22 Source: patient Mode of arrival: ambulatory Limitations: no limitations History of Present Illness: See nursing assessment. Patient with complaints of left upper quadrant and left lower quadrant abdominal pain since yesterday. She has had some occasional nausea. She denies any vomiting or diarrhea. She denies any blood in her stool or melena. She reports a low-grade fever yesterday. She denies any dysuria or hematuria. She denies any flank pain. Past medical history includes hypertension, COPD, diverticulitis, irritable bowel syndrome, questionable H. pylori infection by EGD couple weeks ago. Past surgical history includes hysterectomy, cholecystectomy, C-sections x4. She still has her appendix. She denies tobacco use. Associated Symptoms: Reports nausea; Denies chills, diarrhea, fever(s), hematochezia, hematemesis, melena and vomiting Review of Systems Const: Denies: fever(s) or chills Eyes: Denies: change in vision ENMT: Denies: throat pain Card: Denies: chest pain or palpitations Resp: Denies: dyspnea or wheezing GI: Reports: abdominal pain and nausea; Denies: vomiting, hematemesis, diarrhea, hematochezia, melena or mucus in stool : Denies: flank pain Musc: Denies: neck pain or back pain Skin/Breast: Denies: rash or pruritus Neuro: Denies: headache(s) or numbness in extremities Psych: Denies: anxiety Rui/Lymph: Denies: enlarged lymph nodes PFSH ED PFSH: Medical History Abnormal reflex COPD (chronic obstructive pulmonary disease) GERD (gastroesophageal reflux disease) Helicobacter pylori gastritis HTN (hypertension) Neck pain [facility] History of cholecystectomy History of esophagogastroduodenoscopy Hx of section Hx of colonoscopy 2020 [facility] Hx of hysterectomy Family History Family/Other Cancer Diabetes Father Diabetes Hyperlipidemia Hypertension Stroke Mother Hypertension Stroke CAD (coronary artery disease) Rheumatoid arthritis Other Major depressive disorder, recurrent severe without psychotic features Panic disorder [episodic paroxysmal anxiety] Post-traumatic stress disorder, chronic Social History Smoking and tobacco status: never smoked Second hand smoke exposure: Yes Alcohol intake: never History of recent travel: No Physical Exam Const: COMMON NORMALS: no acute distress, patient oriented x3, alert and well nourished GENERAL APPEARANCE: cooperative HENMT: COMMON NORMALS: normocephalic and atraumatic HEAD & SCALP: normocephalic and atraumatic Eye: COMMON NORMALS: EOMs intact bilaterally Neck/C-Spine: COMMON NORMALS: full ROM, no lymphadenopathy, supple and no JVD Lymph: LYMPHATIC: no lymphadenopathy noted Chest: COMMONS NORMALS: normal inspection of the chest and normal palpation of entire chest wall Resp: COMMON NORMALS: normal respiratory effort, No retractions, No use of accessory muscles and clear to auscultation bilaterally AUSCULTATION: clear to auscultation bilaterally Cardio: COMMON NORMALS: no JVD, regular rate, regular rhythm and Peripheral pulses 2+ throughout RATE: regular rate RHYTHM: regular rhythm PERIPHERAL PULSES: Peripheral pulses 2+ throughout GI: OTHER: Moderate left upper and lower quadrant pain. Normoactive bowel sounds throughout. No masses palpated no bruits. No pulsatile masses. Morbid obesity. No rash. No hepatosplenomegaly. : COMMON NORMALS: Yes no CVA tenderness BLADDER/KIDNEY EXAM: Yes no CVA tenderness Back/Pelvis: COMMON NORMALS: no CVA tenderness Extremity: COMMON NORMALS: normal to inspection and full ROM Neuro: COMMON NORMALS: patient oriented x3, CN's II-XII intact bilaterally, mo ves all extremities, no focal motor deficits and no sensory deficits noted SENSORIUM/ORIENTATION: Yes alert Psych: COMMON NORMALS: mental status grossly normal, Normal thought process present, cooperative, normal affect and speech normal SPEECH: Yes normal speech THOUGHT PROCESS: Normal thought process present Skin: COMMON NORMALS: no rashes or lesions noted GENERAL SKIN EXAM: no r ashes or lesions noted Course Vital Signs: Vital signs: Vital Signs Temperature 98.1 F 08/07/22 11:49 Pulse Rate 71 08/07/22 13:39 Respiratory Rate 16 08/07/22 13:39 Blood Pressure 167/81 08/07/22 13:39 Pulse Oximetry 97 08/07/22 13:39 Oxygen Delivery Me thod 08/07/22 13:39 MDM - Abdominal Pain Medical Decision Making Left upper quadrant and left lower quadrant abdominal pain. Possible diverticulitis. Possible urinary tract infection Lab Data : 08/07/22 11:41 08/07/22 11:41 Labs/Radiology: Radiology Impressions Abdomen/Pelvis CT 08/07/22 12:33 IMPRESSION: 1. Inflammatory stranding and edema involving the sigmoid colon LEFT lower quadrant consistent with acute diverticulitis. No evidence of drainable abscess or fluid collection. Recommend follow-up to resolution. 2. No evidence of bowel obstruction. 3. Prior cholecystectomy. 4. Stable cavernous hemangioma in the LEFT hepatic lobe measuring 1.7 CM. Notified Ottotrey Rosales MD at 08/07/2022 1:45 PM. Laboratory Results WBC 7.3 10^3/uL (4.0-10.0) 08/07/22 11:41 RBC 4.74 10^6/uL (4.1-5.3) 08/07/22 11:41 Hgb 13.5 g/dL (11.5-15.3) 08/07/22 11:41 Hct 43.2 % (37.0-47.0) 08/07/22 11:41 MCV 91.1 fl (81-99) 08/07/22 11:41 MCH 28.5 pg (28.0-34.0) 08/07/22 11:41 MCHC 31.3 g/dL (30.0-36.0) 08/07/22 11:41 RDW 13.9 % (12.1-15.1) 08/07/22 11:41 Plt Count 315 10^3/cmm (130-400) 08/07/22 11:41 MPV 10.1 fL (7.4-10.4) 08/07/22 11:41 Neut % (Auto) 70.9 % 08/07/22 11:41 Lymph % (Auto) 18.6 % 08/07/22 11:41 [place] % (Auto) 8.6 % 08/07/22 11:41 Eos % (Auto) 1.1 % 08/07/22 11:41 Baso % (Auto) 0.5 % 08/07/22 11:41 Neut # (Auto) 5.17 10^3/uL (1.8-7.7) 08/07/22 11:41 Lymph # (Auto) 1.4 10^3/uL (0.8-4.8) 08/07/22 11:41 [place] # (Auto) 0.6 10^3/uL (0.2-0.9) 08/07/22 11:41 Eos # (Auto) 0.1 10^3/uL (0.0-0.8) 08/07/22 11:41 Baso # (Auto) 0.0 10^3/uL (0.0-0.1) 08/07/22 11:41 Nucleated RBC % (auto) 0 % 08/07/22 11:41 Nucleated RBCs # 0.0 /100WBC 08/07/22 11:41 Sodium 137 mmol/L (136-145) 08/07/22 11:41 Potassium 3.8 mmol/L (3.5-5.1) 08/07/22 11:41 Chloride 97 mmol/L (98-107) L 08/07/22 11:41 Carbon Dioxide 30 mmol/L (22-29) H 08/07/22 11:41 Anion Gap 13.8 (5-19) 08/07/22 11:41 BUN 8 mg/dL (6-20) 08/07/22 11:41 Creatinine 0.6 mg/dL (0.5-0.9) 08/07/22 11:41 GFR Calculation 105.8 mL/min (90-130) 08/07/22 11:41 Glucose 92 mg/dL (65-115) 08/07/22 11:41 Calculated Osmolality 282 mOsm/kg (285-295) L 08/07/22 11:41 Calcium 9.6 mg/dL (8.5-10.5) 08/07/22 11:41 Urine Color Yellow (Yellow) 08/07/22 12:06 Urine Appearance Clear (CLEAR) 08/07/22 12:06 Urine pH 6.5 (5-7) 08/07/22 12:06 Ur Specific [place] 1.010 (1.005-1.030) 08/07/22 12:06 Urine Protein Neg (Negative) 08/07/22 12:06 Urine Glucose (UA) Norm (Normal) 08/07/22 12:06 Urine Ketones Negative (Negative) 08/07/22 12:06 Urine Blood 2+ (Negative) H 08/07/22 12:06 Urine Nitrate Negative (Negative) 08/07/22 12:06 Urine Bilirubin Neg (Negative) 08/07/22 12:06 Urine Urobilinogen Norm mg/dL (Negative) 08/07/22 12:06 Ur Leukocyte Esterase Negative (Negative) 08/07/22 12:06 Urine RBC 0-4 /hpf (0-2) H 08/07/22 12:06 Urine WBC 0-4 /hpf (0-5) H 08/07/22 12:06 Ur Squamous Epith Cells 0-4 /hpf (0-5) H 08/07/22 12:06 Amorphous Sediment Not Reportable 08/07/22 12:06 Urine Bacteria Trace /hpf (NONE) 08/07/22 12:06 Urine Mucus 1+ /hpf 08/07/22 12:[address] Abd/Pel: Radiologist's impression: CT ABDOMEN PELVIS TECHNIQUE: Contrast-enhanced CT of the abdomen and pelvis with coronal and sagittal reformatted images. CLINICAL INFORMATION: LLQ/LUQ abd pain COMPARISON: January 30, 2022 DLP: 1073.[address] [facility] use at least one of these dose optimization techniques: automated exposure control; mA and/or kV adjustment per patient size (includes targeted exams where dose is matched to clinical indication); or iterative reconstruction. FINDINGS: Inflammatory stranding and edema LEFT lower quadrant involving the sigmoid colon consistent with acute diverticulitis. No drainable abscess or fluid collection. Recommend follow-up to resolution. No evidence of bowel obstruction. Tiny amount of free fluid in the pelvis. Mild diffuse fatty infiltration liver. Prior cholecystectomy. Normal appendix in the RIGHT lower quadrant. Stable hemangioma LEFT hepatic lobe measuring 1.5 CM. Normal portal vein and splenic vein. Normal spleen. Normal GE junction. Normal pancreas. Normal caliber abdominal aorta. Celiac and SMA are normal. Adrenal glands are normal. Normal renal parenchymal enhancement. No hydronephrosis. Prior hysterectomy. CT/CT abdomen pelvis w con* [id number] IMPRESSION: ? 1.? Inflammatory stranding and edema involving the sigmoid colon LEFT lower quadrant consistent with acute diverticulitis. No evidence of drainable abscess or fluid collection. Recommend follow-up to resolution. 2.? No evidence of bowel obstruction. 3.? Prior cholecystectomy. 4.? Stable cavernous hemangioma in the LEFT hepatic lobe measuring 1.7 CM. ? Notified Ottotrey Rosales MD at 08/07/2022 1:45 PM. ? ? Dictated By: Adolph Scales MD Signed By: Adolph Scales MD Signed Date/Time: 08/07/22 1348 EKG Data EKG 1: I personally reviewed and interpreted this EKG as follows: EKG interpretation date: 08/07/22 EKG interpretation time: 11:33 Interpretation: EKG shows normal sinus rhythm heart rate of 84. Normal VA interval, normal QT interval, normal QRS, normal axis. Normal ST segment. Normal P wave, normal T waves. Normal EKG. Discharge Plan Discharge Patient Disposition: Home Clinical Impression: Diverticulitis, Left lower quadrant abdominal pain, Left upper quadrant abdominal pain Condition: Stable Prescriptions: New metronidazole 500 mg tablet 500 mg PO BID 7 Days Qty: 14 0RF Rx Instructions: for infection, do not drink alcohol while on this medication Cipro 500 mg tablet 500 mg PO BID Qty: 14 0RF Colace 100 mg capsule 100 mg PO BID Qty: 14 1RF Rx Instructions: stool softener No Action (DME) night splint to left See Rx Instructions .Route .MEDSUPPLY Qty: 1 0RF Rx Instructions: As directed nitroglycerin 0.6 mg/hr patch 24 hour 1 patch transdermal DAILY 30 Days Qty: 30 0RF Rx Instructions: allow nitrate-free interval of approx. 10-12 hrs per 24-hour period amoxicillin 500 mg capsule 1,000 mg PO BID 14 Days Qty: 56 0RF clarithromycin 500 mg tablet 500 mg PO BID 14 Days Qty: 28 0RF pantoprazole [Protonix] 40 mg tablet,delayed release (DR/EC) 40 mg PO BID 14 Days Qty: 28 0RF pantoprazole [Protonix] 40 mg tablet,delayed release (DR/EC) 40 mg PO BID 42 Days Qty: 84 0RF Ubrelvy 100 mg tablet See Rx Instructions .ROUTE .COMPLEX Qty: 10 3RF Dose Instruction: TAKE 1 TABLET BY MOUTH ONCE AT ONSET OF HEADACHE, MAX 1 TABLET IN 24 HOURS Rx Instructions: TAKE 1 TABLET BY MOUTH ONCE AT ONSET OF HEADACHE, MAX 1 TABLET IN 24 HOURS diclofenac sodium [Voltaren Arthritis Pain] 1 % gel 4 g topical QID PRN (Reason: Pain) Qty: 100 0RF Rx Instructions: apply to single knee, ankle, foot; for foot includes sole/toes/top of foot fluoxetine 20 mg capsule 60 mg PO DAILY Qty: 90 0RF Rx Instructions: Take 3 capsules every morning quetiapine 150 mg tablet extended release 24 hr 150 mg PO DAILY Qty: 30 0RF Rx Instructions: Take one tablet by mouth each day at least 1 hour before bedtime trazodone 150 mg tablet 150 mg PO .qhs PRN (Reason: insomnia) Qty: 30 0RF Rx Instructions: Take 1/2 to 1 tablet at bedtime, if needed for insomnia Minipress 5 mg capsule 5 mg PO .q hs Qty: 30 0RF Rx Instructions: Take one capsule by mouth every night clonazepam 0.5 mg tablet 0.5 mg PO BID PRN (Reason: anxiety/panic) Qty: 60 0RF Rx Instructions: Take 1 tablet up to twice a day, if needed for anxiety/panic diazepam 10 mg tablet 10 mg PO ONCE PRN (Reason: anxiety) 1 Days Qty: 2 0RF Rx Instructions: Take 1 prior to procedure and repeat if necessary amlodipine 5 mg Tablet 5 mg PO BEDTIME@2200 albuterol sulfate 90 mcg/actuation Hfa Aerosol Inhaler 1 - 2 puff INHALATION Q4H PRN (Reason: Shortness Of Breath) aspirin 81 mg Tablet,Chewable 81 mg PO QAM ipratropium-albuterol 0.5 mg-3 mg(2.5 mg base)/3 mL solution for nebulization 3 ml INHALATION DAILY@0800 polyethylene glycol 3350 [Miralax] 17 gram/dose powder 17 g PO DAILY PRN (Reason: Constipation) budesonide-formoterol [Symbicort] 160-4.5 mcg/actuation Hfa Aerosol Inhaler 2 puff INHALATION Q12H Trulance 3 mg tablet 3 mg PO DAILY pantoprazole 40 mg Tablet,Delayed Release (Dr/Ec) 40 mg PO BID Qty: 60 0RF chlorthalidone 50 mg tablet 50 mg PO QAM losartan 100 mg tablet 100 mg PO QAM tizanidine 4 mg tablet 4 mg PO Q8H PRN (Reason: Muscle Spasm) montelukast 10 mg tablet 10 mg PO DAILY gabapentin 100 mg capsule 100 mg PO TID PRN (Reason: Pain) hydroxychloroquine 200 mg tablet 200 mg PO BID metoprolol tartrate 25 mg tablet 25 mg PO BID cholecalciferol (vitamin D3) 1,250 mcg (50,000 unit) capsule 50,000 unit PO Q30D sucralfate [Carafate] 1 gram tablet 1 g PO Q6H Qty: 60 0RF diclofenac sodium 50 mg tablet,delayed release (DR/EC) 50 mg PO Q12H PRN (Reason: pain) Qty: 20 0RF Discharge Orders: Discharge ED (Routine); Ordered 08/07/22 Ordered By: Otto Rosales Referrals: Alpesh Garcia MD [Primary Care Provider] - 1-3 days (for recheck) Discharge Diet: Regular Discharge Activity: Increase activity as tolerated Patient Instructions: Diverticulitis (ED), Abdominal Pain (ED) Activity Restrictions/Additional Instructions: Start Cipro and metronidazole antibiotics tomorrow morning. You have mild diverticulitis of your left lower colon. Take stool softener twice a day for the next 7 to 10 days to prevent constipation. Drink plenty water. May take Tylenol for discomfort. Follow-up with your family doctor this week for recheck. Coding Level of Care Code ED Applications Trainer for Francine Fwd Exam Comprehensive
[2022-08-07] MEDS: HYDROmorphone 1 mg/mL INJ 1 mL 0.5 MG IVP (11:54)
[2022-08-07 12:00] LABS: Basophils % 0.5 %; Eosinophils # 0.1 10^3/uL (0.0-0.8); Eosinophils % 1.1 %; Hematocrit 43.2 % (37.0-47.0); Hemoglobin 13.5 g/dL (11.5-15.3); Lymphocytes # 1.4 10^3/uL (0.8-4.8); Lymphocytes % 18.6 %; Mean Corpuscular HGB Conc 31.3 g/dL (30.0-36.0); Mean Corpuscular Hemoglobin 28.5 pg (28.0-34.0); Mean Corpuscular Volume 91.1 fl (81-99); Mean Platelet Volume 10.1 fL (7.4-10.4); Monocytes # 0.6 10^3/uL (0.2-0.9); Monocytes % 8.6 %; Neutrophils # 5.17 10^3/uL (1.8-7.7); Neutrophils % 70.9 %; Nucleated Red Blood Cells % 0 %; Platelet Count 315 10^3/cmm (130-400); Red Blood Count 4.74 10^6/uL (4.1-5.3); Red Cell Distribution Width 13.9 % (12.1-15.1); White Blood Count 7.3 10^3/uL (4.0-10.0)
[2022-08-07 12:23] LABS: Anion Gap 13.8 (5-19); Blood Urea Nitrogen 8 mg/dL (6-20); Calcium 9.6 mg/dL (8.5-10.5); Carbon Dioxide 30 mmol/L (22-29); Chloride 97 mmol/L (98-107); Glomerular Filtration Rate 105.8 mL/min (90-130); Glucose 92 mg/dL (65-115); Osmolality Calculated 282 mOsm/kg (285-295); Potassium 3.8 mmol/L (3.5-5.1); Sodium 137 mmol/L (136-145)
--- NOTE | 2022-08-07 12:33 | CT_ITS ---
WS: [id number] CT ABDOMEN PELVIS TECHNIQUE: Contrast-enhanced CT of the abdomen and pelvis with coronal and sagittal reformatted image s. CLINICAL INFORMATION: LLQ/LUQ abd pain COMPARISON: January 30, 2022 DLP: 1073.[address] scans at [facility] use at least one of these dose optimization techniques: automated e xposure control; mA and/or kV adjustment per patient size (includes targeted exams where dose is matc hed to clinical indication); or iterative reconstruction. FINDINGS: Inflammatory stranding and edema LEFT lower quadrant involving the sigmoid colon consistent with acut e diverticulitis. No drainable abscess or fluid collection. Recommend follow-up to resolution. No jeff dence of bowel obstruction. Tiny amount of free fluid in the pelvis. Mild diffuse fatty infiltration liver. Prior cholecystectomy. Normal appendix in the RIGHT lower quad rant. Stable hemangioma LEFT hepatic lobe measuring 1.5 CM. Normal portal vein and splenic vein. Norm al spleen. Normal GE junction. Normal pancreas. Normal caliber abdominal aorta. Celiac and SMA are normal. Adrenal glands are normal . Normal renal parenchymal enhancement. No hydronephrosis. Prior hysterectomy. CT/CT abdomen pelvis w con* [id number] IMPRESSION: 1. Inflammatory stranding and edema involving the sigmoid colon LEFT lower mukesh drant consistent with acute diverticulitis. No evidence of drainable abscess or fluid collection. Recommend follow-up to resolution. 2. No evidence of bowel obstruction. 3. Prior cholecystectomy. 4. Stable cavernous hemangioma in the LEFT hepatic lobe measuring 1.7 CM. Notified Ottotrey Rosales MD at 08/07/2022 1:45 PM.
[2022-08-07 12:39] LABS: Add Urine Culture? No; Bacteria Urine TRACE /hpf; Bilirubin Urine Neg (Negative); Blood Urine 2+ (Negative); Glucose Urine UA Norm (Normal); Ketones Urine Negative (Negative); Leukocyte Esterase Urine Negative (Negative); Mucus Urine 1+ /hpf; Nitrate Urine Negative (Negative); Protein Urine Neg (Negative); RBC Urine 0-4 /hpf (0-2); Squamous Epithelial Cell Urine 0-4 /hpf (0-5); Urine Appearance Clear (CLEAR); Urine Color Yellow (Yellow); Urobilinogen Urine Norm (Negative); WBC Urine 0-4 /hpf (0-5); pH Urine 6.5 (5-7)
[2022-08-07] MEDS: iohexol 350 mg/mL 100 mL Btl IV (13:23)
== END 2022-08-07 15:41 | disposition home or self-care (01) ==
PROVIDERS: Emergency Provider Family Medicine; PCP Family Medicine
DX: K57.92 Diverticulitis of intestine, part unspecified, without perforation or abscess without bleeding (principal); Z79.82 Long term (current) use of aspirin; Z77.22 Contact with and (suspected) exposure to environmental tobacco smoke (acute) (chronic); J44.9 Chronic obstructive pulmonary disease, unspecified; I10 Essential (primary) hypertension
CPT/HCPCS: 74177; 80048; 81001; 85025; 96365; 96375; 99285; J0694; J1170; Q9967

== ENCOUNTER → 2022-08-19 08:45 | Outpatient (BNVA) | payer MEDICAID, SELFPAY | PROVIDERS: PCP Family Medicine; Visit Provider Podiatrist Foot & Ankle Surgery | DX: M72.2 Plantar fascial fibromatosis (principal); M76.72 Peroneal tendinitis, left leg | CPT/HCPCS: 99213 ==

== ENCOUNTER 2022-08-21 23:49 | Emergency (ER) | payer MEDICAID, SELFPAY ==
[2022-08-21 23:58] VITALS: BP 205/89; PULSE 84; RESP 16; TEMP 36.6; O2SAT 96; BMI 42.7
--- NOTE | 2022-08-22 00:13 | ED_ITS ---
HPI - Extremity Problem General: Chief complaint: Extremity Problem,Nontraumatic Stated complaint: left hip and leg pain x few days Time Seen by Provider: 08/22/22 00:01 Source: patient Mode of arrival: ambulatory Limitations: no limitations History of Present Illness: 51-year-old female states she has been having left hip pain over the last 3 to 4 days states the pain is in her left back and radiates down her left hip states it is worse with movement walking improved with rest denies any bowel or bladder incontinence denies any injuries. She rates her pain a 7 out of 10 currently. Associated symptoms: Deny chest pain, fever(s) or rash Review of Systems Const: Denies: fever(s), chills, body aches or change in appetite Eyes: Denies: blurry vision or eye discomfort ENMT: Denies: throat pain or dental pain Card: Denies: chest pain Resp: Denies: dyspnea GI: Denies: abdominal pain, nausea, vomiting or diarrhea : Denies: dysuria Musc: Reports: back pain and extremity pain Skin/Breast: Denies: rash Neuro: Denies: headache(s) Psych: Denies: depression Rui/Lymph: Denies: easy bruising All/Imm: Denies: urticaria PFSH ED PFSH: Medical History Abnormal reflex COPD (chronic obstructive pulmonary disease) GERD (gastroesophageal reflux disease) Helicobacter pylori gastritis HTN (hypertension) Neck pain Psychiatric care Psychiatric care [facility]atzsarah's ring Surgical History History of cholecystectomy History of esophagogastroduodenoscopy Hx of section Hx of colonoscopy 2020 [facility] Hx of hysterectomy Family History Family/Other Cancer Diabetes Father Diabetes Hyperlipidemia Hypertension Stroke Mother Hypertension Stroke CAD (coronary artery disease) Rheumatoid arthritis Other Major depressive disorder, recurrent severe without psychotic features Panic disorder [episodic paroxysmal anxiety] Post-traumatic stress disorder, chronic Social History Smoking and tobacco status: never smoked Second hand smoke exposure: Yes Alcohol intake: never History of recent travel: No Physical Exam Const: COMMON NORMALS: no acute distress, patient oriented x3 and healthy appearing HENMT: COMMON NORMALS: normocephalic and atraumatic HEAD & SCALP: normocephalic and atraumatic Eye: COMMON NORMALS: Equal, round and reactive pupils present and EOMs intact bilaterally PUPIL: Yes Equal, round and reactive pupils present Neck/C-Spine: COMMON NORMALS: full ROM and supple Chest: COMMONS NORMALS: normal inspection of the chest and normal palpation of entire chest wall Resp: COMMON NORMALS: normal respiratory effort, No retractions, No use of accessory muscles and clear to auscultation bilaterally AUSCULTATION: clear to auscultation bilaterally Cardio: COMMON NORMALS: regular rate, regular rhythm and No murmurs present (Cardio) RATE: regular rate RHYTHM: regular rhythm GI: COMMON NORMALS: Normal to inspection, nondistended, normoactive bowel sounds present, Soft to palpation, non-tender and no masses PALPATION: Yes Soft to palpation Back/Pelvis: OTHER: Tenderness to left lower back no midline tenderness no saddle anesthesia Extremity: COMMON NORMALS: normal to inspection and full ROM Neuro: COMMON NORMALS: patient oriented x3, moves all extremities and no focal motor deficits Psych: COMMON NORMALS: mental status grossly normal, Normal thought process present and cooperative THOUGHT PROCESS: Normal thought process present Skin: COMMON NORMALS: no rashes or lesions noted and no wounds GENERAL SKIN EXAM: no rashes or lesions noted Course Vital Signs: Vital signs: Vital Signs Temperature 97.9 F 08/21/22 23:58 Pulse Rate 84 08/21/22 23:58 Respiratory Rate 16 08/21/22 23:58 Blood Pressure 205/89 08/21/22 23:58 Pulse Oximetry 96 08/21/22 23:58 MDM - Extremity (Nontraumatic) Medical Decision Making Patient presents here with left hip pain is likely muscular with some sciatica patient's well-appearing here she stable for discharge she is to follow-up PCP and return if worsening. Discharge Plan Discharge Patient Disposition: Home Clinical Impression: Low back pain Qualifiers: Chronicity: acute Back pain laterality: left Sciatica presence: with sciatica Sciatica laterality: sciatica of left side Qualified Code(s): M54.42 - Lumbago with sciatica, left side Condition: Stable Prescriptions: New hydrocodone-acetaminophen 5-325 mg tablet 1 tab PO Q6H PRN (Reason: pain) Qty: 14 0RF methocarbamol 750 mg tablet 750 mg PO Q6H PRN (Reason: spasms) Qty: 20 0RF Naprosyn 500 mg tablet 500 mg PO BID PRN (Reason: pain) Qty: 20 0RF No Action (DME) night splint to left See Rx Instructions .Route .MEDSUPPLY Qty: 1 0RF Rx Instructions: As directed nitroglycerin 0.6 mg/hr patch 24 hour 1 patch transdermal DAILY PRN (Reason: plantar fascia pain) Qty: 30 0RF Rx Instructions: allow nitrate-free interval of approx. 10-12 hrs per 24-hour period pantoprazole [Protonix] 40 mg tablet,delayed release (DR/EC) 40 mg PO BID 14 Days Qty: 28 0RF pantoprazole [Protonix] 40 mg tablet,delayed release (DR/EC) 40 mg PO BID 42 Days Qty: 84 0RF amlodipine 10 mg tablet 10 mg PO DAILY nitroglycerin 0.6 mg tablet, sublingual 0.6 mg sublingual Q5M PRN Rx Instructions: Place one tab under tongue q 5 minutes, up to 3 doses, PRN chest pain; quetiapine 200 mg tablet extended release 24 hr 200 mg PO .q hs Qty: 30 1RF Rx Instructions: Take one tablet daily at bedtime; stop 150 mg dose trazodone 150 mg tablet 150 mg PO .qhs PRN (Reason: insomnia) Qty: 30 1RF Rx Instructions: Take 1/2 to 1 tablet at bedtime, if needed for insomnia Minipress 5 mg capsule 5 mg PO .q hs Qty: 30 1RF Rx Instructions: Take one capsule by mouth every night fluoxetine 40 mg capsule 80 mg PO QAM Qty: 60 1RF clonazepam 0.5 mg tablet 0.5 mg PO BID PRN (Reason: anxiety/panic) Qty: 60 1RF Rx Instructions: Take 1 tablet up to twice a day, if needed for anxiety/panic Ubrelvy 100 mg tablet See Rx Instructions .ROUTE .COMPLEX Qty: 10 3RF Dose Instruction: TAKE 1 TABLET BY MOUTH ONCE AT ONSET OF HEADACHE, MAX 1 TABLET IN 24 HOURS Rx Instructions: TAKE 1 TABLET BY MOUTH ONCE AT ONSET OF HEADACHE, MAX 1 TABLET IN 24 HOURS diclofenac sodium [Voltaren Arthritis Pain] 1 % gel 4 g topical QID PRN (Reason: Pain) Qty: 100 0RF Rx Instructions: apply to single knee, ankle, foot; for foot includes sole/toes/top of foot diazepam 10 mg tablet 10 mg PO ONCE PRN (Reason: anxiety) 1 Days Qty: 2 0RF Rx Instructions: Take 1 prior to procedure and repeat if necessary (DME) Night Splint See Rx Instructions .Route .MEDSUPPLY Qty: 1 0RF Rx Instructions: As directed by HOME albuterol sulfate 90 mcg/actuation Hfa Aerosol Inhaler 1 - 2 puff INHALATION Q4H PRN (Reason: Shortness Of Breath) aspirin 81 mg Tablet,Chewable 81 mg PO QAM ipratropium-albuterol 0.5 mg-3 mg(2.5 mg base)/3 mL solution for nebulization 3 ml INHALATION DAILY@0800 polyethylene glycol 3350 [Miralax] 17 gram/dose powder 17 g PO DAILY PRN (Reason: Constipation) budesonide-formoterol [Symbicort] 160-4.5 mcg/actuation Hfa Aerosol Inhaler 2 puff INHALATION Q12H Trulance 3 mg tablet 3 mg PO DAILY pantoprazole 40 mg Tablet,Delayed Release (Dr/Ec) 40 mg PO BID Qty: 60 0RF chlorthalidone 50 mg tablet 50 mg PO QAM losartan 100 mg tablet 100 mg PO QAM tizanidine 4 mg tablet 4 mg PO Q8H PRN (Reason: Muscle Spasm) montelukast 10 mg tablet 10 mg PO DAILY gabapentin 100 mg capsule 100 mg PO TID PRN (Reason: Pain) hydroxychloroquine 200 mg tablet 200 mg PO BID metoprolol tartrate 25 mg tablet 25 mg PO BID cholecalciferol (vitamin D3) 1,250 mcg (50,000 unit) capsule 50,000 unit PO Q30D sucralfate [Carafate] 1 gram tablet 1 g PO Q6H Qty: 60 0RF diclofenac sodium 50 mg tablet,delayed release (DR/EC) 50 mg PO Q12H PRN (Reason: pain) Qty: 20 0RF Cipro 500 mg tablet 500 mg PO BID Qty: 14 0RF Colace 100 mg capsule 100 mg PO BID Qty: 14 1RF Rx Instructions: stool softener Discharge Orders: Discharge ED (Routine); Ordered 08/22/22 Ordered By: Leon Moura Referrals: Miugel Call DO [Physician] - 1-3 days Alpesh Garcia MD [Primary Care Provider] - Discharge Diet: Advance as tolerated Discharge Activity: Resume usual activity Patient Instructions: Back Pain (ED), Opioid Safety, Pain Management Coding Level of Care Code ED Water Registrar for 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
[2022-08-22] MEDS: dexamethasone 10 mg/mL INJ IM (00:21)
[2022-08-22] MEDS: HYDROcodone-acetaminophen 5-325 mg Tablet 1 TAB PO (00:21)
--- NOTE | 2022-08-22 12:27 | DCPLANNER ---
Addendum entered by Nina Orellana 09/11/22 13:55: Patient had a follow up appointment scheduled for 08.27.[address] Call at ortho - patient did attend appointment. Original Note: rehabilitation center manager had message to schedule a follow up appointment for patient with ortho. rehabilitation center manager sent patients information the front office staff at ortho. Patients information will be printed and reviewed. Clinic will call patient with appointment information.
== END 2022-08-22 00:26 | disposition home or self-care (01) ==
PROVIDERS: Emergency Provider Emergency Medicine; PCP Family Medicine
DX: M54.42 Lumbago with sciatica, left side (principal); Z79.82 Long term (current) use of aspirin; Z77.22 Contact with and (suspected) exposure to environmental tobacco smoke (acute) (chronic); J44.9 Chronic obstructive pulmonary disease, unspecified; I10 Essential (primary) hypertension
CPT/HCPCS: 96372; 99284; J1100

== ENCOUNTER → 2022-08-27 09:57 | Outpatient (BNVA) | payer MEDICAID, OTHER, SELFPAY | PROVIDERS: PCP Family Medicine; Referring Provider Emergency Medicine; Visit Provider Orthopaedic Surgery | DX: M48.062 Spinal stenosis, lumbar region with neurogenic claudication (principal); M48.02 Spinal stenosis, cervical region; M41.9 Scoliosis, unspecified | CPT/HCPCS: 72050; 72110; 99214 ==

== ENCOUNTER 2022-08-29 23:53 | Emergency (ER) | payer MEDICAID, SELFPAY ==
[2022-08-30 00:03] VITALS: BP 194/100; PULSE 90; RESP 18; TEMP 36.5; O2SAT 97; BMI 42.9
--- NOTE | 2022-08-30 00:12 | CTR_ITS ---
PROCEDURE INFORMATION: Exam: CT Lumbar Spine Without Contrast Exam date and time: 08/30/2022 12:31 AM Age: 51 years old Clinical indication: Patient HX: C/O low back pain with radiation to left leg. TECHNIQUE: Imaging protocol: Computed tomography of the lumbar spine without contrast. Radiation optimization: All CT scans at this facility use at least one of these dose optimization techniques: automated exposure control; mA and/or kV adjustment per patient size (includes targeted exams where dose is matched to clinical indication); or iterative reconstruction. COMPARISON: CT abdomen pelvis w con* [id number] 08/07/2022 1:19 PM RADIATION DOSE METRICS: Total DLP (mGy-cm): 989 FINDINGS: Bones/joints: Mild lumbar levoscoliosis. Multilevel Schmorl's nodes. Mild posterior L4-L5 disc bulge. Soft tissues: Unremarkable. CT/CT lumbar spine wo con* [id number] IMPRESSION: Mild posterior L4-L5 disc bulge.
--- NOTE | 2022-08-30 00:14 | W.ED.GENADLT ---
HPI - General Adult General: Chief complaint: Extremity Problem,Nontraumatic Stated complaint: Left Side Back Pain Time Seen by Provider: 08/29/22 23:55 Source: patient Mode of arrival: ambulatory Limitations: no limitations History of Present Illness: 51-year-old female who has a history of chronic back pain she has been having worsening left lower back pain she has been seen here she saw a spine surgeon 2 days ago she states she is scheduled to get MRI but states she had worsening left lower back pain with shooting pain down her left leg states pain is currently a 6 out of 10 worse with movement improved with rest denies any bowel or bladder incontinence denies any fever. Associated symptoms: Deny chest pain, dyspnea, headache(s), nausea, rash or vomiting Review of Systems Const: Denies: fever(s), chills, body aches or change in appetite Eyes: Denies: blurry vision or eye discomfort ENMT: Denies: throat pain or dental pain Card: Denies: chest pain Resp: Denies: dyspnea GI: Denies: abdominal pain, nausea, vomiting or diarrhea : Denies: dysuria Musc: Reports: back pain; Denies: neck pain Skin/Breast: Denies: rash Neuro: Denies: headache(s) Psych: Denies: depression Rui/Lymph: Denies: easy bruising All/Imm: Denies: urticaria PFSH ED PFSH: Medical History Abnormal reflex COPD (chronic obstructive pulmonary disease) GERD (gastroesophageal reflux disease) Helicobacter pylori gastritis HTN (hypertension) Neck pain Psychiatric care Psychiatric care [facility] patel Surgical History History of cholecystectomy History of esophagogastroduodenoscopy Hx of section Hx of colonoscopy 2020 [facility] Hx of hysterectomy Family History Family/Other Cancer Diabetes Father Diabetes Hyperlipidemia Hypertension Stroke Mother Hypertension Stroke CAD (coronary artery disease) Rheumatoid arthritis Other Major depressive disorder, recurrent severe without psychotic features Panic disorder [episodic paroxysmal anxiety] Post-traumatic stress disorder, chronic Social History Smoking and tobacco status: never smoked Second hand smoke exposure: Yes Alcohol intake: never History of recent travel: No Physical Exam Const: COMMON NORMALS: no acute distress, patient oriented x3 and healthy appearing HENMT: COMMON NORMALS: normocephalic and atraumatic HEAD & SCALP: normocephalic and atraumatic Eye: COMMON NORMALS: Equal, round and reactive pupils present and EOMs intact bilaterally PUPIL: Yes Equal, round and reactive pupils present Neck/C-Spine: COMMON NORMALS: full ROM and supple Chest: COMMONS NORMALS: normal inspection of the chest and normal palpation of entire chest wall Resp: COMMON NORMALS: normal respiratory effort, No retractions, No use of accessory muscles and clear to auscultation bilaterally AUSCULTATION: clear to auscultation bilaterally Cardio: COMMON NORMALS: regular rate, regular rhythm and No murmurs present (Cardio) RATE: regular rate RHYTHM: regular rhythm GI: COMMON NORMALS: Normal to inspection, nondistended, normoactive bowel sounds present, Soft to palpation, non-tender and no masses PALPATION: Yes Soft to palpation Back/Pelvis: OTHER: left lower back tenderness, no saddle anesthesia Extremity: COMMON NORMALS: normal to inspection and full ROM Neuro: COMMON NORMALS: patient oriented x3, moves all extremities and no focal motor deficits Psych: COMMON NORMALS: mental status grossly normal, Normal thought process present and cooperative THOUGHT PROCESS: Normal thought process present Skin: COMMON NORMALS: no rashes or lesions noted and no wounds GENERAL SKIN EXAM: no rashes or lesions noted Course Vital Signs: Vital signs: Vital Signs Temperature 97.7 F 08/30/22 00:03 Pulse Rate 86 08/30/22 01:24 Respiratory Rate 18 08/30/22 01:24 Blood Pressure 194/100 08/30/22 00:03 Pulse Oximetry 95 08/30/22 01:24 Oxygen Delivery Me thod 08/30/22 00:03 MDM - General Adult Medical Decision Making Patient presents here with low back pain is chronic in nature CT showed a disc bulge she has no signs of cord compression here no saddle anesthesia no urinary retention or other findings she is following with Dr. Call she is to follow-up and return if worsening. Lab Data Radiology Impressions Lumbar Spine CT 08/30/22 00:12 IMPRESSION: Mild posterior L4-L5 disc bulge. Discharge Plan Discharge Patient Disposition: Home Clinical Impression: Low back pain Condition: Stable Prescriptions: New Medrol (Miguel) 4 mg tablets,dose pack See Rx Instructions .ROUTE .COMPLEX Qty: 21 0RF Rx Instructions: orally per package directions No Action (DME) night splint to left See Rx Instructions .Route .MEDSUPPLY Qty: 1 0RF Rx Instructions: As directed nitroglycerin 0.6 mg/hr patch 24 hour 1 patch transdermal DAILY PRN (Reason: plantar fascia pain) Qty: 30 0RF Rx Instructions: allow nitrate-free interval of approx. 10-12 hrs per 24-hour period pantoprazole [Protonix] 40 mg tablet,delayed release (DR/EC) 40 mg PO BID 14 Days Qty: 28 0RF pantoprazole [Protonix] 40 mg tablet,delayed release (DR/EC) 40 mg PO BID 42 Days Qty: 84 0RF amlodipine 10 mg tablet 10 mg PO DAILY nitroglycerin 0.6 mg tablet, sublingual 0.6 mg sublingual Q5M PRN Rx Instructions: Place one tab under tongue q 5 minutes, up to 3 doses, PRN chest pain; quetiapine 200 mg tablet extended release 24 hr 200 mg PO .q hs Qty: 30 1RF Rx Instructions: Take one tablet daily at bedtime; stop 150 mg dose trazodone 150 mg tablet 150 mg PO .qhs PRN (Reason: insomnia) Qty: 30 1RF Rx Instructions: Take 1/2 to 1 tablet at bedtime, if needed for insomnia Minipress 5 mg capsule 5 mg PO .q hs Qty: 30 1RF Rx Instructions: Take one capsule by mouth every night fluoxetine 40 mg capsule 80 mg PO QAM Qty: 60 1RF clonazepam 0.5 mg tablet 0.5 mg PO BID PRN (Reason: anxiety/panic) Qty: 60 1RF Rx Instructions: Take 1 tablet up to twice a day, if needed for anxiety/panic Ubrelvy 100 mg tablet See Rx Instructions .ROUTE .COMPLEX Qty: 10 3RF Dose Instruction: TAKE 1 TABLET BY MOUTH ONCE AT ONSET OF HEADACHE, MAX 1 TABLET IN 24 HOURS Rx Instructions: TAKE 1 TABLET BY MOUTH ONCE AT ONSET OF HEADACHE, MAX 1 TABLET IN 24 HOURS diclofenac sodium [Voltaren Arthritis Pain] 1 % gel 4 g topical QID PRN (Reason: Pain) Qty: 100 0RF Rx Instructions: apply to single knee, ankle, foot; for foot includes sole/toes/top of foot diazepam 10 mg tablet 10 mg PO ONCE PRN (Reason: anxiety) 1 Days Qty: 2 0RF Rx Instructions: Take 1 prior to procedure and repeat if necessary (DME) Night Splint See Rx Instructions .Route .MEDSUPPLY Qty: 1 0RF Rx Instructions: As directed by HOME albuterol sulfate 90 mcg/actuation Hfa Aerosol Inhaler 1 - 2 puff INHALATION Q4H PRN (Reason: Shortness Of Breath) aspirin 81 mg Tablet,Chewable 81 mg PO QAM ipratropium-albuterol 0.5 mg-3 mg(2.5 mg base)/3 mL solution for nebulization 3 ml INHALATION DAILY@0800 polyethylene glycol 3350 [Miralax] 17 gram/dose powder 17 g PO DAILY PRN (Reason: Constipation) budesonide-formoterol [Symbicort] 160-4.5 mcg/actuation Hfa Aerosol Inhaler 2 puff INHALATION Q12H Trulance 3 mg tablet 3 mg PO DAILY pantoprazole 40 mg Tablet,Delayed Release (Dr/Ec) 40 mg PO BID Qty: 60 0RF chlorthalidone 50 mg tablet 50 mg PO QAM losartan 100 mg tablet 100 mg PO QAM tizanidine 4 mg tablet 4 mg PO Q8H PRN (Reason: Muscle Spasm) montelukast 10 mg tablet 10 mg PO DAILY gabapentin 100 mg capsule 100 mg PO TID PRN (Reason: Pain) hydroxychloroquine 200 mg tablet 200 mg PO BID metoprolol tartrate 25 mg tablet 25 mg PO BID cholecalciferol (vitamin D3) 1,250 mcg (50,000 unit) capsule 50,000 unit PO Q30D sucralfate [Carafate] 1 gram tablet 1 g PO Q6H Qty: 60 0RF diclofenac sodium 50 mg tablet,delayed release (DR/EC) 50 mg PO Q12H PRN (Reason: pain) Qty: 20 0RF Cipro 500 mg tablet 500 mg PO BID Qty: 14 0RF Colace 100 mg capsule 100 mg PO BID Qty: 14 1RF Rx Instructions: stool softener hydrocodone-acetaminophen 5-325 mg tablet 1 tab PO Q6H PRN (Reason: pain) Qty: 14 0RF methocarbamol 750 mg tablet 750 mg PO Q6H PRN (Reason: spasms) Qty: 20 0RF Naprosyn 500 mg tablet 500 mg PO BID PRN (Reason: pain) Qty: 20 0RF Discharge Orders: Discharge ED (Routine); Ordered 08/30/22 Ordered By: Leon Moura Referrals: Alpesh Garcia MD [Primary Care Provider] - Discharge Diet: Advance as tolerated Discharge Activity: Resume usual activity Patient Instructions: Back Pain (ED) Stand Alone Forms: Work/School Release Coding Level of Care Code ED [employer] Fwd Exam Comprehensive
[2022-08-30] MEDS: diazePAM 5 mg Tablet PO (00:17)
[2022-08-30 00:19] VITALS: RESP 20
[2022-08-30] MEDS: morphine 4 mg/mL SDV 1 mL IM (00:19)
[2022-08-30] MEDS: predniSONE 20 mg Tablet 60 MG PO (00:22)
[2022-08-30 01:24] VITALS: PULSE 86; RESP 18; O2SAT 95
== END 2022-08-30 01:20 | disposition home or self-care (01) ==
PROVIDERS: Emergency Provider Emergency Medicine; PCP Family Medicine
DX: M54.50 Low back pain, unspecified (principal); Z79.82 Long term (current) use of aspirin; Z77.22 Contact with and (suspected) exposure to environmental tobacco smoke (acute) (chronic); J44.9 Chronic obstructive pulmonary disease, unspecified; I10 Essential (primary) hypertension
CPT/HCPCS: 72131; 96372; 99284; J2270; J7512

== ENCOUNTER 2022-09-03 23:40 | Emergency (ER) | payer MEDICAID, SELFPAY ==
[2022-09-03 23:53] VITALS: BP 190/128; PULSE 98; RESP 24; TEMP 36.5; O2SAT 100; BMI 42.9
--- NOTE | 2022-09-04 00:15 | XRR_ITS ---
PROCEDURE INFORMATION: Exam: XR Left Tibia and Fibula Exam date and time: 09/04/2022 12:27 AM Age: 51 years old Clinical indication: Injury or trauma; Blunt trauma; Lower leg; Patient HX: Patient had a fall on 09/01/2022. C/O persistent low back pain, coccygeal, and lle pain. History of chronic low back pain. Patient unable to lay on left side. Lateral views performed with patient laying on right side. TECHNIQUE: Imaging protocol: Radiologic exam of the Left tibia and fibula. Views: 2 views. COMPARISON: No relevant prior studies available. FINDINGS: Bones/joints: The osseous structures are intact. No evidence of acute fracture.. Soft tissues: Normal. XR/XR tibia fibula LT 2V [id number] IMPRESSION: No acute fracture is identified.
--- NOTE | 2022-09-04 00:15 | XRR_ITS ---
PROCEDURE INFORMATION: Exam: XR Lumbosacral Spine Exam date and time: 09/04/2022 12:27 AM Age: 51 years old Clinical indication: Injury or trauma; Blunt trauma (contusions or hematomas); Patient HX: Patient had a fall on 09/01/2022. C/O persistent low back pain, coccygeal, and lle pain. History of chronic low back pain. Patient unable to lay on left side. Lateral views performed with patient laying on right side. TECHNIQUE: Imaging protocol: Radiologic exam of the lumbosacral spine. Views: 2 or 3 views. COMPARISON: CT lumbar spine wo con* [id number] 08/30/2022 12:31 AM FINDINGS: Bones/joints: The osseous structures are intact. The vertebral body heights are maintained. No acute fracture. The alignment is maintained. There are degenerative changes of the SI joints. Soft tissues: Status post cholecystectomy. Metallic clips are seen in the [place] hepatis. Metallic rings are seen overlying the pubis. XR/XR lumbar spine 2-3V* [id number] IMPRESSION: No evidence of acute fracture in the lumbar spine.
--- NOTE | 2022-09-04 00:15 | XRR_ITS ---
PROCEDURE INFORMATION: Exam: XR Sacrum and Coccyx, 2 or More Views Exam date and time: 09/04/2022 12:27 AM Age: 51 years old Clinical indication: Injury or trauma; Blunt trauma (contusions or hematomas); Prior surgery; Surgery type: Hysterectomy. Csection; Patient HX: Patient had a fall on 09/01/2022. C/O persistent low back pain, coccygeal, and lle pain. History of chronic low back pain. Patient unable to lay on left side. Lateral views performed with patient laying on right side. TECHNIQUE: Imaging protocol: XR of the sacrum and coccyx, 2 or more views. COMPARISON: CT abdomen pelvis w con* [id number] 08/07/2022 1:19 PM FINDINGS: Bones/joints: Sharp angulation of approximately 90 degrees at the sacrococcygeal junction which appears chronic. The osseous structures appear otherwise grossly intact. No definite acute fracture is identified. Soft tissues: Fecal matter and gases are noted in the rectum. XR/XR sacrum coccyx min 2V [id number] IMPRESSION: Sharp angulation of approximately 90 degrees at the sacrococcygeal junction which is age indeterminate but chronic appearing. If there is clinical concern, CT or MRI of the pelvis can be performed for further evaluation. The osseous structures appear otherwise grossly intact.
[2022-09-04] MEDS: diazePAM 5 mg Tablet PO (00:44)
[2022-09-04 00:47] VITALS: BP 172/117; PULSE 99; RESP 18; O2SAT 96
--- NOTE | 2022-09-04 01:21 | CTR_ITS ---
PROCEDURE INFORMATION: Exam: CT Pelvis Without Contrast; Skeletal Exam date and time: 09/04/2022 1:33 AM Age: 51 years old Clinical indication: Injury or trauma; Blunt trauma (contusions or hematomas); Does not apply; Coccyx; Prior surgery; Surgery type: Hysterectomy. Csection. Patient HX: Abnormal angulation of sacrococcygeal joint noted on xray. Patient sustained fall on 09/01/2022. ; Additional info: Fall with abnormal XR coccyx film TECHNIQUE: Imaging protocol: Computed tomography of the pelvis without contrast. Exam focused on the skeleton. Radiation optimization: All CT scans at this facility use at least one of these dose optimization techniques: automated exposure control; mA and/or kV adjustment per patient size (includes targeted exams where dose is matched to clinical indication); or iterative reconstruction. COMPARISON: 1. CT abdomen pelvis w con* [id number] 08/07/2022 1:[address] abdomen pelvis w con* [id number] 06/12/2021 7:34 PM RADIATION DOSE METRICS: Total DLP (mGy-cm): 700.31 FINDINGS: Stomach and bowel: Visible portions of the small bowel and colon are unremarkable. Appendix: The appendix is normal. Urinary bladder: The urinary bladder is unremarkable. Reproductive: The uterus is absent. There is no adnexal mass or large cyst. Intraperitoneal space: No pelvic free fluid. Lymph nodes: No pelvic or inguinal lymphadenopathy. Bones/joints: The sacrum and coccyx are intact. The appearance of the sacrum is unchanged since 06/12/2021. The hips are normal. Joint spaces are preserved. The proximal femora are intact. The bony pelvis is intact. The lower lumbar spine is unremarkable. Soft tissues: No hernia. Pelvic musculature is unremarkable. CT/CT bony pelvis [id number] IMPRESSION: 1. No pathologic findings. 2. Unchanged appearance of the sacrum and coccyx since 06/12/2021.
--- NOTE | 2022-09-04 02:07 | ED_ITS ---
HPI - Fall General: Chief Complaint: Fall Stated Complaint: back pain, left knee pain Time Seen by Provider: 09/03/22 23:47 History of Present Illness: Patient is in today complaining of left lower extremity pain and left hip pain. She reports that on Friday she had a fall at work onto the ground from standing height. She reports that she has had significant pain in her hip and lower extremity since that time. She reports that the pain is in her left moya and her left hip/buttocks region. She states that she has recently been in here for low back pain and was taking the steroids but did not listen to the doctor and ended up falling at work. She denies fever, chills, nausea, vomiting. She denies dysuria, hematuria. She denies saddle anesthesia or loss of bowel or bladder continence. Review of Systems Const: Denies: fever(s) or chills Resp: Denies: dyspnea : Denies: flank pain, difficulty voiding, dysuria, urinary frequency, urinary urgency or urinary hesitancy Musc: Reports: back pain (Low back pain worse on the left) and extremity pain (Left lower extremity pain) PFSH ED PFSH: Medical History Abnormal reflex COPD (chronic obstructive pulmonary disease) GERD (gastroesophageal reflux disease) Helicobacter pylori gastritis HTN (hypertension) Neck pain Psychiatric care Psychiatric care Jemsandro patel Surgical History History of cholecystectomy History of esophagogastroduodenoscopy Hx of section Hx of colonoscopy 2020 [facility] Hx of hysterectomy Family History Family/Other Cancer Diabetes Father Diabetes Hyperlipidemia Hypertension Stroke Mother Hypertension Stroke CAD (coronary artery disease) Rheumatoid arthritis Other Major depressive disorder, recurrent severe without psychotic features Panic disorder [episodic paroxysmal anxiety] Post-traumatic stress disorder, chronic Social History Smoking and tobacco status: never smoked Second hand smoke exposure: Yes Alcohol intake: never History of recent travel: No Physical Exam Const: COMMON NORMALS: patient oriented x3 and alert NUTRITIONAL APPEARANCE: obese morbidly obese OTHER: Patient is in bed talking to visitors in room, but starts crying and writhing in pain when staff enters the room Neck/C-Spine: COMMON NORMALS: no JVD Resp: COMMON NORMALS: normal respiratory effort, No use of accessory muscles and clear to auscultation bilaterally AUSCULTATION: clear to auscultation bilaterally Cardio: COMMON NORMALS: no JVD, regular rate, regular rhythm, S1 normal heart sound present, S2 normal heart sound present and No murmurs present (Cardio) RATE: regular rate RHYTHM: regular rhythm HEART SOUNDS: S1 normal heart sound present and S2 normal heart sound present GI: COMMON NORMALS: Soft to palpation and non-tender PALPATION: Yes Soft to palpation : COMMON NORMALS: Yes no CVA tenderness BLADDER/KIDNEY EXAM: Yes no CVA tenderness Back/Pelvis: COMMON NORMALS: no CVA tenderness Extremity: NARRATIVE EXTREMITY EXAM: Stated pain level is disproportionate to physical exam findings. Patient jumps and flinches to light touch of skin with hand over left hip/buttocks, but later on in the exam is talking and not reporting severe pain to touch in that same area. Patient reports tenderness to palpation over the entire moya of the left leg also the lateral hip and the left buttocks. There is no obvious bony or soft tissue deformities appreciated. There is no point tenderness to palpation to the lumbar bony spine. There are no step-offs appreciated. There is some tenderness to palpation to the left lumbar paraspinal musculature. Physical exam is limited by patient's reported pain level. She reports pain 10 out of 10. CSM within normal limits bilateral lower extremities. Neuro: COMMON NORMALS: patient oriented x3 SENSORIUM/ORIENTATION: Yes alert Course Vital Signs: Vital signs: Vital Signs Temperature 97.7 F 09/03/22 23:53 Pulse Rate 99 09/04/22 00:47 Respiratory Rate 18 09/04/22 00:47 Blood Pressure 172/117 09/04/22 00:47 Pulse Oximetry 96 09/04/22 00:47 Oxygen Delivery Me thod 09/03/22 23:53 MDM - Fall Medical Decision Making Patient has been seen here in the ER a couple of different times now for low b ack pain. Patient has had x-ray imaging of low back. She has also followed with Dr. Call who saw her and advised that she needs an MRI evaluation. Patient reports a fall since her last visit with Dr. Call on August 27 or the ER on August 30. She is concerned that she has a new injury. X-ray of lumbar spine shows no evidence of acute fracture. X-ray of sacrum and coccyx shows a sharp angulation of approximately 90 degrees at the sacrococcygeal junction which is age-indeterminate but could be chronic appearing. The radiologist recommended CT or MRI of the pelvis if there is clinical concern. X-ray of the tib-fib shows no acute fracture. CT of pelvis shows no pathologic findings, unchanged appearance of the sacrum and coccyx since May 2021. Prior to imaging, patient was given Valium p.o. x1 dose. Patient was sleeping after Valium was administered comfortably in bed. Relaxed facial expression. Results of imaging discussed with patient and her visitor. Advised patient that I do not see any acute changes on her images today. I will treat patient with muscle relaxant medication and discussed conservative treatments at home. I recommend that she follow-up with her primary care provider in 3 to 5 days. Patient is frustrated about not receiving a prescription for narcotic medication for home use. I advised her that I am treating her with muscle relaxant to help with muscle spasm and stiffness. I recommend she follow-up with her primary care provider to discuss options for pain management long-term. Continue follow-up with Dr. Call as previously scheduled. Turn to the ER for new or worsening symptoms. Lab Data Radiology Impressions Lumbar Spine X-Ray 09/04/22 00:15 IMPRESSION: No evidence of acute fracture in the lumbar spine. Sacrum and Coccyx X-Ray 09/04/22 00:15 IMPRESSION: Sharp angulation of approximately 90 degrees at the sacrococcygeal junction which is age indeterminate but chronic appearing. If there is clinical concern, CT or MRI of the pelvis can be performed for further evaluation. The osseous structures appear otherwise grossly intact. Tibia/Fibula X-Ray 09/04/22 00:15 IMPRESSION: No acute fracture is identified. Pelvis CT 09/04/22 01:21 IMPRESSION: 1. No pathologic findings. 2. Unchanged appearance of the sacrum and coccyx since 06/12/2021. Discharge Plan Discharge Patient Disposition: Home Clinical Impression: Fall, Low back pain, Contusion of hip, Contusion of right leg, Muscle spasm Condition: Stable Prescriptions: New cyclobenzaprine 10 mg tablet 10 mg PO TID PRN (Reason: muscle spasm) Qty: 14 0RF No Action (DME) night splint to left See Rx Instructions .Route .MEDSUPPLY Qty: 1 0RF Rx Instructions: As directed nitroglycerin 0.6 mg/hr patch 24 hour 1 patch transdermal DAILY PRN (Reason: plantar fascia pain) Qty: 30 0RF Rx Instructions: allow nitrate-free interval of approx. 10-12 hrs per 24-hour period pantoprazole [Protonix] 40 mg tablet,delayed release (DR/EC) 40 mg PO BID 14 Days Qty: 28 0RF pantoprazole [Protonix] 40 mg tablet,delayed release (DR/EC) 40 mg PO BID 42 Days Qty: 84 0RF amlodipine 10 mg tablet 10 mg PO DAILY nitroglycerin 0.6 mg tablet, sublingual 0.6 mg sublingual Q5M PRN Rx Instructions: Place one tab under tongue q 5 minutes, up to 3 doses, PRN chest pain; quetiapine 200 mg tablet extended release 24 hr 200 mg PO .q hs Qty: 30 1RF Rx Instructions: Take one tablet daily at bedtime; stop 150 mg dose trazodone 150 mg tablet 150 mg PO .qhs PRN (Reason: insomnia) Qty: 30 1RF Rx Instructions: Take 1/2 to 1 tablet at bedtime, if needed for insomnia Minipress 5 mg capsule 5 mg PO .q hs Qty: 30 1RF Rx Instructions: Take one capsule by mouth every night fluoxetine 40 mg capsule 80 mg PO QAM Qty: 60 1RF clonazepam 0.5 mg tablet 0.5 mg PO BID PRN (Reason: anxiety/panic) Qty: 60 1RF Rx Instructions: Take 1 tablet up to twice a day, if needed for anxiety/panic Ubrelvy 100 mg tablet See Rx Instructions .ROUTE .COMPLEX Qty: 10 3RF Dose Instruction: TAKE 1 TABLET BY MOUTH ONCE AT ONSET OF HEADACHE, MAX 1 TABLET IN 24 HOURS Rx Instructions: TAKE 1 TABLET BY MOUTH ONCE AT ONSET OF HEADACHE, MAX 1 TABLET IN 24 HOURS diclofenac sodium [Voltaren Arthritis Pain] 1 % gel 4 g topical QID PRN (Reason: Pain) Qty: 100 0RF Rx Instructions: apply to single knee, ankle, foot; for foot includes sole/toes/top of foot diazepam 10 mg tablet 10 mg PO ONCE PRN (Reason: anxiety) 1 Days Qty: 2 0RF Rx Instructions: Take 1 prior to procedure and repeat if necessary (DME) Night Splint See Rx Instructions .Route .MEDSUPPLY Qty: 1 0RF Rx Instructions: As directed by HOME albuterol sulfate 90 mcg/actuation Hfa Aerosol Inhaler 1 - 2 puff INHALATION Q4H PRN (Reason: Shortness Of Breath) aspirin 81 mg Tablet,Chewable 81 mg PO QAM ipratropium-albuterol 0.5 mg-3 mg(2.5 mg base)/3 mL solution for nebulization 3 ml INHALATION DAILY@0800 polyethylene glycol 3350 [Miralax] 17 gram/dose powder 17 g PO DAILY PRN (Reason: Constipation) budesonide-formoterol [Symbicort] 160-4.5 mcg/actuation Hfa Aerosol Inhaler 2 puff INHALATION Q12H Trulance 3 mg tablet 3 mg PO DAILY pantoprazole 40 mg Tablet,Delayed Release (Dr/Ec) 40 mg PO BID Qty: 60 0RF chlorthalidone 50 mg tablet 50 mg PO QAM losartan 100 mg tablet 100 mg PO QAM tizanidine 4 mg tablet 4 mg PO Q8H PRN (Reason: Muscle Spasm) montelukast 10 mg tablet 10 mg PO DAILY gabapentin 100 mg capsule 100 mg PO TID PRN (Reason: Pain) hydroxychloroquine 200 mg tablet 200 mg PO BID metoprolol tartrate 25 mg tablet 25 mg PO BID cholecalciferol (vitamin D3) 1,250 mcg (50,000 unit) capsule 50,000 unit PO Q30D sucralfate [Carafate] 1 gram tablet 1 g PO Q6H Qty: 60 0RF diclofenac sodium 50 mg tablet,delayed release (DR/EC) 50 mg PO Q12H PRN (Reason: pain) Qty: 20 0RF Cipro 500 mg tablet 500 mg PO BID Qty: 14 0RF Colace 100 mg capsule 100 mg PO BID Qty: 14 1RF Rx Instructions: stool softener hydrocodone-acetaminophen 5-325 mg tablet 1 tab PO Q6H PRN (Reason: pain) Qty: 14 0RF methocarbamol 750 mg tablet 750 mg PO Q6H PRN (Reason: spasms) Qty: 20 0RF Naprosyn 500 mg tablet 500 mg PO BID PRN (Reason: pain) Qty: 20 0RF Medrol (Miguel) 4 mg tablets,dose pack See Rx Instructions .ROUTE .COMPLEX Qty: 21 0RF Rx Instructions: orally per package directions Discharge Orders: Discharge ED (Routine); Ordered 09/04/22 Ordered By: Lili Feliciano Referrals: Alpesh Garcia MD [Primary Care Provider] - Discharge Diet: Usual diet Discharge Activity: Increase activity as tolerated Patient Instructions: Contusion, Muscle Spasm (ED) Activity Restrictions/Additional Instructions: Start taking Flexeril tomorrow as needed every 8 hours for pain/muscle spasm. Do not take this medication with any other muscle relaxant medications, medications that make you drowsy, alcohol. Do not drive after taking Flexeril medication. Follow-up with your primary care provider in the next 3 to 5 days for continued monitoring and management. Continue follow-up with Dr. Call. Return to the ER for new or worsening symptoms. Stand Alone Forms: Work/School Release Coding Level of Care Code ED Provider Relations Manager for 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
== END 2022-09-04 02:57 | disposition home or self-care (01) ==
PROVIDERS: Emergency Provider Nurse Practitioner Family; PCP Family Medicine
DX: S70.02XA Contusion of left hip, initial encounter (principal); S80.12XA Contusion of left lower leg, initial encounter; M54.50 Low back pain, unspecified; M62.838 Other muscle spasm; Z79.82 Long term (current) use of aspirin; Z77.22 Contact with and (suspected) exposure to environmental tobacco smoke (acute) (chronic); J44.9 Chronic obstructive pulmonary disease, unspecified; I10 Essential (primary) hypertension; W19.XXXA Unspecified fall, initial encounter; Y99.0 Civilian activity done for income or pay
CPT/HCPCS: 72100; 72192; 72220; 73590; 99284

== ENCOUNTER 2022-09-17 15:43 | Outpatient (CLI) | payer MEDICAID, SELFPAY | END 2022-09-17 15:44 | disposition home or self-care (01) | LOC: SPT 15:44 | PROVIDERS: PCP Family Medicine; Visit Provider Podiatrist Foot & Ankle Surgery | DX: Z46.89 Encounter for fitting and adjustment of other specified devices (principal); M25.572 Pain in left ankle and joints of left foot; R07.9 Chest pain, unspecified; I10 Essential (primary) hypertension; J44.9 Chronic obstructive pulmonary disease, unspecified; R06.09 Other forms of dyspnea | CPT/HCPCS: 97760; 99204; L4397 ==

== ENCOUNTER → 2022-09-30 09:06 | Outpatient (BNVA) | payer MEDICAID, SELFPAY | PROVIDERS: PCP Family Medicine; Visit Provider Podiatrist Foot & Ankle Surgery | DX: M72.2 Plantar fascial fibromatosis (principal); M76.72 Peroneal tendinitis, left leg | CPT/HCPCS: 73630 ==

== ENCOUNTER 2022-09-30 14:09 | Outpatient (CLI) | payer MEDICAID, SELFPAY | END 2022-09-30 14:10 | disposition home or self-care (01) | LOC: SPT 14:09 | PROVIDERS: PCP Family Medicine; Visit Provider Podiatrist Foot & Ankle Surgery | DX: Z46.89 Encounter for fitting and adjustment of other specified devices (principal); M79.672 Pain in left foot; M72.2 Plantar fascial fibromatosis; M76.72 Peroneal tendinitis, left leg | CPT/HCPCS: 97760; 99213; L4361 ==

== ENCOUNTER 2022-10-09 11:04 | Emergency (ER) | payer MEDICAID, SELFPAY ==
[2022-10-09 11:13] VITALS: BP 183/97; PULSE 98; RESP 17; TEMP 36.8; O2SAT 98
--- NOTE | 2022-10-09 11:17 | ECG_ITS ---
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 Measurements Intervals [place] Rate: 83 P: 0 WV: 161 QRS: 15 QRSD: 102 T: -6 QT: 392 QTc: 461 Interpretive Statements SINUS RHYTHM NONSPECIFIC T-WAVE ABNORMALITY Compared to ECG 05/21/2022 09:39:21 T-wave abnormality now present Electronically Signed On 10-10-2022 9:13:12 ASSOCIATE PROFESSOR OF ENGLISH by Lisandra Honeycutt M.D. [email or web address]
--- NOTE | 2022-10-09 11:29 | XR_ITS ---
WS: [id number] Exam: XR pelvis 1-2V* [id number] Date/Time of Exam: 10/09/2022 11:29 AM Reason For Exam: fall No acute pelvic fracture. 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 Unremarkable soft tissues. XR/XR pelvis 1-2V* [id number] IMPRESSION: 1. No acute pelvic fracture.
--- NOTE | 2022-10-09 11:29 | XR_ITS ---
WS: [id number] Exam: XR hip LT 2-3V wo/w pel* [id number] Date/Time of Exam: 10/09/2022 11:29 AM Reason For Exam: fall No fracture or dislocation. Mild degenerative change of the joint compartment. Normal soft tissues. XR/XR hip LT 2-3V wo/w pel* [id number] IMPRESSION: 1. Mild DJD. No fracture or dislocation.
--- NOTE | 2022-10-09 11:29 | XR_ITS ---
WS: [id number] Exam: XR shoulder LT 1V [id number] Date/Time of Exam: 10/09/2022 11:29 AM Reason For Exam: fall Single AP intraoperative rotation view of the left shoulder shows no obvious fracture. The AC joint i s intact. Dislocation is unlikely but cannot be completely ruled out on this single AP view. Normal s oft tissues. XR/XR shoulder LT 1V [id number] IMPRESSION: 1. No acute fractures identified.
[2022-10-09 11:31] VITALS: BP 183/97; PULSE 94; RESP 19; O2SAT 99
--- NOTE | 2022-10-09 11:32 | ED_ITS ---
HPI - Chest Pain General: Chief Complaint: Chest Pain Stated Complaint: chest pain, bp issues, dizzy Time Seen by Provider: 10/09/22 11:16 Source: patient Mode of arrival: ambulatory Limitations: no limitations History of Present Illness: This patient comes to our emergency department because she is concerned about several different items but mostly because she is concerned about her fluctuations in her blood pressure recently. She states her blood pressure this morning was as high as 220/120. She also states that she has had anterior chest pain since approximately 2 AM continuously. She states that it is in the center of her chest and feels heavy. She denies shortness of breath, diaphoresis, radiation of her chest pain, back pain specifically ripping tearing type back pain in her upper back etc. She states that she is quite concerned about her blood pressure. She states she has been faithful to her medication regimen but does take naproxen for joint and chronic back pain. She also states that she has fallen this morning as well as several days ago. She states she fell in her left hip and left shoulder and she is concerned about those areas because are painful. She states she did not hit her head or suffer of loss of consciousness. There was no evidence that she experienced palpitations, syncope etc. She apparently has a history of chronic low back pain as well as some hip pain. She is under the care of orthopedics and has an MRI scheduled sometime in the near future. She denies any numbness weakness of focal nature. She denies any loss of bowel or bladder control perianal or rectal numbness etc. She does not use tobacco or alcohol. MD complaint: chest pain Associated symptoms: Deny abdominal pain, dyspnea, fever(s), nausea, palpitations, syncope or vomiting Risk Factors: Coronary artery disease risk factors: hypertension Review of Systems Const: Denies: fever(s) or chills Eyes: Denies: change in vision ENMT: Denies: odynophagia, nasal discharge or nasal congestion Card: Reports: chest pain; Denies: palpitations, lightheadedness, syncope, pre-syncope or dyspnea on exerti on Resp: Denies: dyspnea, productive cough, non-productive cough or wheezing GI: Denies: abdominal pain, nausea, vomiting or diarrhea : Denies: flank pain, difficulty voiding, dysuria or urinary frequency Musc: Reports: back pain, extremity pain and joint pain Skin/Breast: Denies: rash or pruritus Neuro: Reports: frequent falls; Denies: headache(s), numbness in extremities, weakness in extremities, lack of coordination or difficulty walking Psych: Reports: anxiety Endo: Denies: polyuria or polydipsia Rui/Lymph: Denies: easy bruising PFSH ED PFSH: Medical History Abnormal reflex COPD (chronic obstructive pulmonary disease) GERD (gastroesophageal reflux disease) Helicobacter pylori gastritis HTN (hypertension) Neck pain Psychiatric care Psychiatric care Jem's ring Surgical History History of cholecystectomy History of esophagogastroduodenoscopy Hx of section Hx of colonoscopy [facility] Hx of hysterectomy Family History Family/Other Cancer Diabetes Father Diabetes Hyperlipidemia Hypertension Stroke Mother Hypertension Stroke CAD (coronary artery disease) Rheumatoid arthritis Other Major depressive disorder, recurrent severe without psychotic features Panic disorder [episodic paroxysmal anxiety] Post-traumatic stress disorder, chronic Social History Smoking and tobacco status: never smoked Second hand smoke exposure: Yes Alcohol intake: never History of recent travel: No Physical Exam Narrative: EXAM NARRATIVE: Patient is lying comfortably in bed. She is overweight but makes good eye contact and answers questions appropriately and readily. Appears to be in no acute distress. Const: COMMON NORMALS: no acute distress and patient oriented x3 GENERAL APPEARANCE: cooperative NUTRITIONAL APPEARANCE: overweight HENMT: COMMON NORMALS: normocephalic, atraumatic, Normal nasal mucous membranes and turbinates present, moist oral mucous membranes and oropharynx normal HEAD & SCALP: normocephalic and atraumatic NOSE: Normal nasal mucous membranes and turbinates present Eye: COMMON NORMALS: Equal, round and reactive pupils present, EOMs intact bilaterally and conjunctivae normal CONJUNCTIVA: Yes conjunctivae normal PUPIL: Yes Equal, round and reactive pupils present Neck/C-Spine: COMMON NORMALS: full ROM CERVICAL SPINE: Yes cervical ROM normal, No Cervical spine tenderness and No step off deformity Chest: COMMONS NORMALS: normal inspection of the chest and normal palpation of entire chest wall Resp: COMMON NORMALS: normal respiratory effort, No retractions, No use of accessory muscles and clear to auscultation bilaterally EFFORT & INSPECTION: Yes able to speak in complete sentences AUSCULTATION: clear to auscultation bilaterally Cardio: COMMON NORMALS: regular rate, regular rhythm, No murmurs present (Cardio) and Peripheral pulses 2+ throughout RATE: regular rate RHYTHM: regular rhythm PERIPHERAL PULSES: Peripheral pulses 2+ throughout GI: COMMON NORMALS: Normal to inspection, nondistended, normoactive bowel sounds present, Soft to palpation and non-tender PALPATION: Yes Soft to palpation Back/Pelvis: COMMON NORMALS: thoracic and lumbar spine normal to inspection and straight leg raise negative bilaterally OTHER: She has tenderness in the left lower back and pelvis in the region of the posterior superior iliac spine. There is no tenderness over the axial spine, no step-offs. No ecchymosis. Extremity: COMMON NORMALS: capillary refill normal, no calf tenderness and no pedal edema NARRATIVE EXTREMITY EXAM: She has tenderness over the soft tissue the lateral left shoulder which is exacerbated by external rotation and AB duction. She is able to keep it in a position of comfort and internal rotation. No step-off noted. No deformity noted. Neurovascular intact distally. Left hip again is nontender over the greater trochanter or the upper thigh. Internal and external rotation of the hip is normal. No deformity, shortening, rotation etc. She is normal and exam distally and neurovascular intact. Neuro: COMMON NORMALS: patient oriented x3, moves all extremities, no focal motor deficits and no sensory deficits noted CRANIAL NERVES: Yes CN normal except as noted Psych: COMMON NORMALS: mental status grossly normal Skin: COMMON NORMALS: no rashes or lesions noted GENERAL SKIN EXAM: no rashes or lesions noted Course Reevaluation(s): Reevaluation #1: Patient remained stable blood pressures improved without any intervention. Plain films in the emergency department today did not reveal any evidence of fracture dislocation or other acute changes. Given the duration of her symptoms of subjective chest pain for greater than 8 hours with a negative troponin and a reassuring EKG mitigates against ACS or other worrisome etiologies of her chest pain. Her potassium has been repleted in the emergency department and we will have her follow-up with her primary care office next week for a repeat potassium level. No evidence at this time of any ongoing emergency medical condition. Discussed all findings with her and reasons for return. She acknowledged our discussion and voiced understanding. We will have her avoid all nonsteroidals as I think this is having an effect on her blood pressure. Time: 12:45 Vital Signs: Vital signs: Vital Signs Temperature 98.2 F 10/09/22 12:30 Pulse Rate 90 10/09/22 12:30 Respiratory Rate 16 10/09/22 12:30 Blood Pressure 178/66 10/09/22 12:30 Pulse Oximetry 99 10/09/22 12:30 Oxygen Delivery Me thod 10/09/22 12:30 MDM - Chest Pain Medical Decision Making This patient presented to our emergency department because of concerns about blood pressure elevation today. Does have a history of hypertension and is on multiple medications for that condition. She is also apparently been taking nonsteroidals for various joint and musculoskeletal pains. She did state that she had some rather vague chest pain without any other associated symptoms. Her work-up today was reassuring and that she had negative plain films and did not r eveal any evidence of fracture etc. Her blood pressure well not ideal is not concerning at this time regarding any acute intervention. We have advised her to not use any nonsteroidals as this may be affecting her blood pressure. Troponin and EKG is reassuring after greater than 8 hours of chest pain which mitigates against ACS. Potassium was repleted in the emergency department(she takes an ARB plus a diuretic and therefore I will not add any replacement potassium to take home but have her have her potassium reevaluated in 1 week. ) And she will be discharged home to outpatient follow-up with return precautions. Medical Records I reviewed the patient's medical records. Extensive history of multiple images of various patients particularly including hip shoulder spine all which revealed degenerative changes and possible disc bulge. Lab Data I reviewed the patient's lab results. 10/09/22 11:41 10/09/22 11:41 Radiology Impressions Hip/Pelvis X-Ray 10/09/22 11:29 IMPRESSION: 1. Mild DJD. No fracture or dislocation. Pelvis X-Ray 10/09/22 11:29 IMPRESSION: 1. No acute pelvic fracture. Shoulder X-Ray 10/09/22 11:29 IMPRESSION: 1. No acute fractures identified. Laboratory Results WBC 5.3 10^3/uL (4.0-10.0) 10/09/22 11:41 RBC 4.55 10^6/uL (4.1-5.3) 10/09/22 11:41 Hgb 12.9 g/dL (11.5-15.3) 10/09/22 11:41 Hct 41.6 % (37.0-47.0) 10/09/22 11:41 MCV 91.4 fl (81-99) 10/09/22 11:41 MCH 28.4 pg (28.0-34.0) 10/09/22 11:41 MCHC 31.0 g/dL (30.0-36.0) 10/09/22 11:41 RDW 13.8 % (12.1-15.1) 10/09/22 11:41 Plt Count 313 10^3/cmm (130-400) 10/09/22 11:41 MPV 10.3 fL (7.4-10.4) 10/09/22 11:41 Neut % (Auto) 61.6 % 10/09/22 11:41 Lymph % (Auto) 27.1 % 10/09/22 11:41 Cannon % (Auto) 8.0 % 10/09/22 11:41 Eos % (Auto) 2.3 % 10/09/22 11:41 Baso % (Auto) 0.8 % 10/09/22 11:41 Neut # (Auto) 3.25 10^3/uL (1.8-7.7) 10/09/22 11:41 Lymph # (Auto) 1.4 10^3/uL (0.8-4.8) 10/09/22 11:41 Cannon # (Auto) 0.4 10^3/uL (0.2-0.9) 10/09/22 11:41 Eos # (Auto) 0.1 10^3/uL (0.0-0.8) 10/09/22 11:41 Baso # (Auto) 0.0 10^3/uL (0.0-0.1) 10/09/22 11:41 Nucleated RBC % (auto) 0 % 10/09/22 11:41 Nucleated RBCs # 0.0 /100WBC 10/09/22 11:41 Sodium 140 mmol/L (136-145) 10/09/22 11:41 Potassium 3.2 mmol/L (3.5-5.1) L 10/09/22 11:41 Chloride 102 mmol/L (98-107) 10/09/22 11:41 Carbon Dioxide 27 mmol/L (22-29) 10/09/22 11:41 Anion Gap 14.2 (5-19) 10/09/22 11:41 BUN 5 mg/dL (6-20) L 10/09/22 11:41 Creatinine 0.6 mg/dL (0.5-0.9) 10/09/22 11:41 GFR Calculation 105.8 mL/min (90-130) 10/09/22 11:41 Glucose 113 mg/dL (65-115) 10/09/22 11:41 Calculated Osmolality 288 mOsm/kg (285-295) 10/09/22 11:41 Calcium 9.2 mg/dL (8.5-10.5) 10/09/22 11:41 Troponin T Baseline 8 ng/L (0-10) 10/09/22 11:41 EKG Data EKG 1: I personally reviewed and interpreted this EKG as follows: Interpretation: Contemporaneous review of the EKG reveals ventricular rate of 83 bpm. Normal intervals, normal axis. No acute ST-T wave changes noted.No acute changes compared with prior tracings. Discharge Plan Discharge Patient Disposition: Home Clinical Impression: HTN (hypertension), Chest pain, Chronic musculoskeletal pain, Hypokalemia Condition: Stable Prescriptions: No Action (DME) night splint to left See Rx Instructions .Route .MEDSUPPLY Qty: 1 0RF Rx Instructions: As directed pantoprazole [Protonix] 40 mg tablet,delayed release (DR/EC) 40 mg PO BID 42 Days Qty: 84 0RF (DME) Cam Boot to the left See Rx Instructions .Route .MEDSUPPLY Qty: 1 0RF Rx Instructions: As directed metoprolol tartrate 50 mg tablet 50 mg PO BID Qty: 180 3RF hydralazine 50 mg tablet 50 mg PO TID Qty: 270 3RF amlodipine 10 mg tablet 10 mg PO DAILY nitroglycerin 0.6 mg tablet, sublingual 0.6 mg sublingual Q5M PRN Rx Instructions: Place one tab under tongue q 5 minutes, up to 3 doses, PRN chest pain; Minipress 5 mg capsule 5 mg PO .q hs Qty: 30 1RF Rx Instructions: Take one capsule by mouth every night Ubrelvy 100 mg tablet See Rx Instructions .ROUTE .COMPLEX Qty: 10 3RF Dose Instruction: TAKE 1 TABLET BY MOUTH ONCE AT ONSET OF HEADACHE, MAX 1 TABLET IN 24 HOURS Rx Instructions: TAKE 1 TABLET BY MOUTH ONCE AT ONSET OF HEADACHE, MAX 1 TABLET IN 24 HOURS diclofenac sodium [Voltaren Arthritis Pain] 1 % gel 4 g topical QID PRN (Reason: Pain) Qty: 100 0RF Rx Instructions: apply to single knee, ankle, foot; for foot includes sole/toes/top of foot (DME) Night Splint See Rx Instructions .Route .MEDSUPPLY Qty: 1 0RF Rx Instructions: As directed by HOME (DME) Night Splint See Rx Instructions .Route .MEDSUPPLY Qty: 1 0RF Rx Instructions: As directed nitroglycerin 0.6 mg/hr patch 24 hour See Rx Instructions .ROUTE .COMPLEX Qty: 30 1RF Dose Instruction: APPLY 1 PATCH NEEDED FOR PLANTAR FASCIA PAIN, ALLOW NITRATE FREE INTERVAL OF 10-12HRS/24HR PERIOD Rx Instructions: APPLY 1 PATCH NEEDED FOR PLANTAR FASCIA PAIN, ALLOW NITRATE FREE INTERVAL OF 10-12HRS/24HR PERIOD fluoxetine 40 mg capsule 80 mg PO QAM Qty: 60 0RF quetiapine 200 mg tablet extended release 24 hr 200 mg PO .q hs Qty: 30 0RF Rx Instructions: Take one tablet daily at bedtime trazodone 150 mg tablet 150 mg PO .qhs PRN (Reason: insomnia) Qty: 30 0RF Rx Instructions: Take 1/2 to 1 tablet at bedtime, if needed for insomnia clonazepam 0.5 mg tablet 0.5 mg PO BID PRN (Reason: anxiety/panic) Qty: 60 0RF Rx Instructions: Take 1 tablet up to twice a day, if needed for anxiety/panic albuterol sulfate 90 mcg/actuation Hfa Aerosol Inhaler 1 - 2 puff INHALATION Q4H PRN (Reason: Shortness Of Breath) aspirin 81 mg Tablet,Chewable 81 mg PO QAM ipratropium-albuterol 0.5 mg-3 mg(2.5 mg base)/3 mL solution for nebulization 3 ml INHALATION DAILY@0800 polyethylene glycol 3350 [Miralax] 17 gram/dose powder 17 g PO DAILY PRN (Reason: Constipation) budesonide-formoterol [Symbicort] 160-4.5 mcg/actuation Hfa Aerosol Inhaler 2 puff INHALATION Q12H Trulance 3 mg tablet 3 mg PO DAILY chlorthalidone 50 mg tablet 50 mg PO QAM losartan 100 mg tablet 100 mg PO QAM tizanidine 4 mg tablet 4 mg PO Q8H PRN (Reason: Muscle Spasm) montelukast 10 mg tablet 10 mg PO DAILY gabapentin 100 mg capsule 100 mg PO TID PRN (Reason: Pain) hydroxychloroquine 200 mg tablet 200 mg PO BID cholecalciferol (vitamin D3) 1,250 mcg (50,000 unit) capsule 50,000 unit PO Q30D sucralfate [Carafate] 1 gram tablet 1 g PO Q6H Qty: 60 0RF cyclobenzaprine 10 mg tablet 10 mg PO TID PRN (Reason: muscle spasm) Qty: 14 0RF diclofenac sodium 50 mg tablet,delayed release (DR/EC) 50 mg PO Q12H PRN (Reason: pain) Qty: 20 0RF Colace 100 mg capsule 100 mg PO BID Qty: 14 1RF Rx Instructions: stool softener methocarbamol 750 mg tablet 750 mg PO Q6H PRN (Reason: spasms) Qty: 20 0RF Naprosyn 500 mg tablet 500 mg PO BID PRN (Reason: pain) Qty: 20 0RF Discharge Orders: Discharge ED (Routine); Ordered 10/09/22 Ordered By: Solomon Beltran Referrals: Alpesh Garcia MD [Primary Care Provider] - 7-10 days Discharge Diet: Low Salt Discharge Activity: Increase activity as tolerated Patient Instructions: Opioid Safety, Pain Management Activity Restrictions/Additional Instructions: Do not take ibuprofen, Aleve, Naprosyn, diclofenac or other of this class of medications as they affect your blood pressure. Take all your other usual medications. Do not salt your food at the table and avoid salt containing foods. Follow-up with your doctor in approximately 1 week for recheck on your potassium level. If you develop any new worsening or persistent problems return to this or the nearest emergency department. Coding Level of Care Code ED Transportation Planner for Francine Fwwarren Exam Comprehensive
--- NOTE | 2022-10-09 11:39 | PC.NURSE ---
PATIENT PLACED ON TRANSFORMATION ANALYST.
[2022-10-09 11:51] LABS: Basophils % 0.8 %; Eosinophils # 0.1 10^3/uL (0.0-0.8); Eosinophils % 2.3 %; Hematocrit 41.6 % (37.0-47.0); Hemoglobin 12.9 g/dL (11.5-15.3); Lymphocytes # 1.4 10^3/uL (0.8-4.8); Lymphocytes % 27.1 %; Mean Corpuscular Hemoglobin 28.4 pg (28.0-34.0); Mean Corpuscular Volume 91.4 fl (81-99); Mean Platelet Volume 10.3 fL (7.4-10.4); Monocytes # 0.4 10^3/uL (0.2-0.9); Neutrophils # 3.25 10^3/uL (1.8-7.7); Neutrophils % 61.6 %; Nucleated Red Blood Cells % 0 %; Platelet Count 313 10^3/cmm (130-400); Red Blood Count 4.55 10^6/uL (4.1-5.3); Red Cell Distribution Width 13.8 % (12.1-15.1); White Blood Count 5.3 10^3/uL (4.0-10.0)
[2022-10-09 12:09] LABS: Troponin(5th) Baseline 8 ng/L (0-10)
[2022-10-09 12:12] LABS: Blood Urea Nitrogen 5 mg/dL (6-20); Calcium 9.2 mg/dL (8.5-10.5); Carbon Dioxide 27 mmol/L (22-29); Chloride 102 mmol/L (98-107); Glomerular Filtration Rate 105.8 mL/min (90-130); Glucose 113 mg/dL (65-115); Osmolality Calculated 288 mOsm/kg (285-295); Sodium 140 mmol/L (136-145)
[2022-10-09 12:16] LABS: Anion Gap 14.2 (5-19); Potassium 3.2 mmol/L (3.5-5.1)
[2022-10-09 12:25] VITALS: BP 178/66; PULSE 90; RESP 16; O2SAT 99
[2022-10-09 12:30] VITALS: BP 178/66; PULSE 90; RESP 16; TEMP 36.8; O2SAT 99
[2022-10-09] MEDS: potassium bicarb 25 mEq Tablet 50 MEQ PO (12:54)
[2022-10-09 12:58] VITALS: BP 173/83; PULSE 96; RESP 18; O2SAT 96
== END 2022-10-09 12:59 | disposition home or self-care (01) ==
PROVIDERS: Emergency Provider Emergency Medicine; PCP Family Medicine
DX: R07.9 Chest pain, unspecified (principal); I10 Essential (primary) hypertension; G89.29 Other chronic pain; E87.6 Hypokalemia; Z79.82 Long term (current) use of aspirin; Z77.22 Contact with and (suspected) exposure to environmental tobacco smoke (acute) (chronic); J44.9 Chronic obstructive pulmonary disease, unspecified
CPT/HCPCS: 72170; 73020; 73502; 80048; 84484; 85025; 93005; 99285

== ENCOUNTER 2022-10-16 09:06 | Outpatient (CLI) | payer MEDICAID, SELFPAY ==
[2022-10-16 09:26] LABS: Basophils % 0.8 %; Eosinophils # 0.1 10^3/uL (0.0-0.8); Eosinophils % 1.8 %; Hematocrit 41.4 % (37.0-47.0); Lymphocytes # 1.3 10^3/uL (0.8-4.8); Mean Corpuscular HGB Conc 31.4 g/dL (30.0-36.0); Mean Corpuscular Hemoglobin 28.2 pg (28.0-34.0); Mean Corpuscular Volume 89.8 fl (81-99); Mean Platelet Volume 10.2 fL (7.4-10.4); Monocytes # 0.5 10^3/uL (0.2-0.9); Neutrophils # 2.93 10^3/uL (1.8-7.7); Neutrophils % 60.2 %; Nucleated Red Blood Cells % 0 %; Platelet Count 304 10^3/cmm (130-400); Red Blood Count 4.61 10^6/uL (4.1-5.3); Red Cell Distribution Width 13.9 % (12.1-15.1); White Blood Count 4.9 10^3/uL (4.0-10.0)
--- NOTE | 2022-10-16 09:30 | USCV_ITS ---
Nani Pryor Age: 51 Gender: F : 1970 Exam Date: 10/16/2022 09:23 Ordering Phys: Valente Orozco M.D ([email or web address]) Technologist: Magnolia Andrea Exam Location: [place] Indication: Palp, Chest Pain Dyspnea BP: 207 / 156 HR: 66 Rhythm: Sinus Technical Quality: Adequate MEASUREMENTS (Male / Female) Normal Values 2D ECHO LV Diastolic Diameter PLAX 4.9 cm 4.2 - 5.9 / 3.9 - 5.3 cm LV Systolic Diameter PLAX 2.0 cm LV Chamber Size 3.8 cm IVS Diastolic Thickness 1.3 cm 0.6 - 1.0 / 0.6 - 0.9 cm IVS Systolic Thickness 2.2 cm LVPW Diastolic Thickness 1.4 cm 0.6 - 1.0 / 0.6 - 0.9 cm LVPW Systolic Thickness 2.3 cm RV Chamber Size 2.1 cm LVOT Diameter 2.0 cm LV Ejection Fraction 2D Teich 88.3 % LV Ejection Fraction MOD 2C 44.1 % LV Ejection Fraction 2C AL 48.1 % LA Diameter 3.5 cm LA Width 3.2 cm LA Height 4.2 cm RA Width 3.1 cm RA Height 4.3 cm Aorta at Sinotubular Diameter 3.1 cm IVC Diameter 1.9 cm M-MODE Aortic Annulus Diameter 3.4 cm LA Ao Ratio MM 1.2 MV E Point Septal Separation 0.4 cm DOPPLER AV Peak Velocity 137.0 cm/s LVOT Peak Velocity 87.0 cm/s AV Area Cont Eq vti 2.3 cm squared AV Area Cont Eq pk 2.1 cm squared MV Area PHT 3.4 cm squared Mitral E to A Ratio 0.7 MV E' Velocity 41.5 cm/s Mitral E to MV E' Ratio 15.3 Mitral E to LV E' Lateral Ratio 15.9 Mitral E to LV E' Septal Ratio 15.0 TR Peak Velocity 180.5 cm/s TR Peak Gradient 13.0 mmHg TR Mean Velocity 145.9 cm/s TR Mean Gradient 8.8 mmHg TR Velocity Time Integral 36.5 cm TV Peak E Velocity 59.0 cm/s Right Atrial Pressure 3.0 mmHg Pulmonary Artery Systolic Pressu 16.0 mmHg RV Acceleration Time 0.2 s RV Ejection Time 0.3 s RV AcT/ET 0.5 FINDINGS Left Ventricle Left ventricle is normal size. LV systolic function is normal with EF of 60 to 65%. No regional wall motion abnormalities are seen. Grade 1 diastolic dysfunction Right Ventricle Normal in size and function Right Atrium Normal in size Left Atrium Normal in size Mitral Valve Grossly normal mitral valve. Trace mitral regurgitation. Aortic Valve Structurally normal aortic valve. No significant stenosis or regurgitation. Tricuspid Valve Mild tricuspid regurgitation. RVSP is normal. Pulmonic Valve Not well-visualized Pericardium Normal Aorta Normal in size IVC Appears to be normal CONCLUSIONS LV systolic function normal with EF of 60 to 65%. Grade 1 diastolic dysfunction Trace mitral regurgitation Mild tricuspid regurgitation. No comparison studies are available Valente Orozco MD (Electronically Signed) Final Date: 20 October 2022 16:57 S
[2022-10-16 09:53] LABS: Anion Gap 14.1 (5-19); Blood Urea Nitrogen 6 mg/dL (6-20); Calcium 9.1 mg/dL (8.5-10.5); Carbon Dioxide 30 mmol/L (22-29); Chloride 100 mmol/L (98-107); Chol HDL Ratio 4.27 mg/dL (0.0-4.40); Cholesterol 209 mg/dL (0-200); Glomerular Filtration Rate 105.8 mL/min (90-130); Glucose 113 mg/dL (65-115); HDL Cholesterol 49 mg/dL (60-100); LDL Cholesterol Calculated 136 mg/dL (50-129); LDL HDL Ratio 2.78 RATIO (0.00-3.22); Osmolality Calculated 288 mOsm/kg (285-295); Potassium 4.1 mmol/L (3.5-5.1); Sodium 140 mmol/L (136-145); Triglycerides 118 mg/dL (0-150)
== END 2022-10-16 09:07 | disposition home or self-care (01) ==
PROVIDERS: PCP Family Medicine; Visit Provider Internal Medicine
DX: I10 Essential (primary) hypertension (principal); R07.9 Chest pain, unspecified; R00.2 Palpitations; R06.00 Dyspnea, unspecified; I08.1 Rheumatic disorders of both mitral and tricuspid valves
CPT/HCPCS: 36415; 80048; 80061; 85025; 93306

== ENCOUNTER 2022-10-20 19:17 | Emergency (ER) | payer MEDICAID, SELFPAY ==
[2022-10-20 19:24] VITALS: BP 128/77; PULSE 109; RESP 20; TEMP 37.1; O2SAT 96; BMI 42.0
--- NOTE | 2022-10-20 19:39 | XRR_ITS ---
PROCEDURE INFORMATION: Exam: XR Chest Exam date and time: 10/20/2022 8:56 PM Age: 51 years old Clinical indication: Pain; Chest pressure; Additional info: Cp TECHNIQUE: Imaging protocol: Radiologic exam of the chest. Views: 1 view. COMPARISON: CT chest w con* [id number] 07/13/2022 9:36 PM FINDINGS: Lungs: Unremarkable. No consolidation. Pleural spaces: Unremarkable. No pleural effusion. No pneumothorax. Heart/Mediastinum: Unremarkable. No cardiomegaly. Bones/joints: Unremarkable. XR/XR chest 1V portable [id number] IMPRESSION: No acute findings.
[2022-10-20 20:18] LABS: Basophils # 0.1 10^3/uL (0.0-0.1); Basophils % 0.6 %; Eosinophils # 0.1 10^3/uL (0.0-0.8); Eosinophils % 0.6 %; Hematocrit 45.6 % (37.0-47.0); Hemoglobin 14.8 g/dL (11.5-15.3); Lymphocytes # 1.4 10^3/uL (0.8-4.8); Lymphocytes % 15.5 %; Mean Corpuscular HGB Conc 32.5 g/dL (30.0-36.0); Mean Corpuscular Hemoglobin 28.1 pg (28.0-34.0); Mean Corpuscular Volume 86.7 fl (81-99); Mean Platelet Volume 10.6 fL (7.4-10.4); Monocytes # 1.2 10^3/uL (0.2-0.9); Neutrophils # 6.36 10^3/uL (1.8-7.7); Neutrophils % 70.1 %; Nucleated Red Blood Cells % 0 %; Platelet Count 306 10^3/cmm (130-400); Red Blood Count 5.26 10^6/uL (4.1-5.3); Red Cell Distribution Width 13.7 % (12.1-15.1); White Blood Count 9.1 10^3/uL (4.0-10.0)
[2022-10-20 20:38] LABS: Troponin(5th) Baseline 31 ng/L (0-10)
[2022-10-20 20:39] LABS: Alanine Aminotransferase 22 U/L (0-33); Albumin Level 4.3 g/dL (3.5-5.2); Alkaline Phosphatase 160 U/L (35-105); Anion Gap 17.5 (5-19); Aspartate Amino Transferase 24 U/L (0-32); Blood Urea Nitrogen 23 mg/dL (6-20); Calcium 10.3 mg/dL (8.5-10.5); Carbon Dioxide 27 mmol/L (22-29); Chloride 90 mmol/L (98-107); Globulin 3.3 g/dL (1.3-4.6); Glomerular Filtration Rate 31.8 mL/min (90-130); Glucose 131 mg/dL (65-115); Osmolality Calculated 277 mOsm/kg (285-295); Potassium 3.5 mmol/L (3.5-5.1); Sodium 131 mmol/L (136-145); Total Bilirubin 1.4 mg/dL (0.15-1.2); Total Protein 7.6 g/dL (6.6-8.7)
--- NOTE | 2022-10-20 21:11 | W.ED.SOB ---
Documented by User: Franklin Majro DO 10/20/22 22:43 HPI - SOB/Dyspnea General: Chief Complaint: Shortness of Breath/Dyspnea Stated Complaint: flu like symptoms, dizzy spells Time Seen by Provider: 10/20/22 20:54 History of Present Illness: HPI Narrative: 51-year-old female presents with flulike symptoms with complaints of having feeling of shortness of breath, cough, nausea, diarrhea, feels like she is little bit dizzy. Reports that symptoms started a few days ago and has gotten worse. Patient reports some generalized malaise. Along with loss of taste, loss of smell, no appetite. Associated symptoms: Reports chest pain ( Tightness ), dizziness, fever(s), nausea and vomiting; Deny abdominal pain or palpitations Review of Systems Const: Reports: fever(s), body aches, change in appetite and fatigue ENMT: Reports: throat pain; Denies: ear or mastoid pain Card: Reports: chest pain ( Tightness ); Denies: palpitations or irregular heart rhythm Resp: Reports: dyspnea and productive cough GI: Reports: nausea, vomiting and diarrhea; Denies: abdominal pain : Denies: flank pain or difficulty voiding Musc: Denies: back pain Skin/Breast: Denies: rash Neuro: Reports: dizziness; Denies: headache(s) Psych: Denies: anxiety or depression PFS ED PFSH: Medical History Abnormal reflex COPD (chronic obstructive pulmonary disease) GERD (gastroesophageal reflux disease) Helicobacter pylori gastritis HTN (hypertension) Neck pain Psychiatric care Psychiatric care Jemsandro patel Surgical History History of cholecystectomy History of esophagogastroduodenoscopy Hx of section Hx of colonoscopy [facility] Hx of hysterectomy Family History Family/Other Cancer Diabetes Father Diabetes Hyperlipidemia Hypertension Stroke Mother Hypertension Stroke CAD (coronary artery disease) Rheumatoid arthritis Other Major depressive disorder, recurrent severe without psychotic features Panic disorder [episodic paroxysmal anxiety] Post-traumatic stress disorder, chronic Social History Smoking and tobacco status: never smoked Second hand smoke exposure: Yes Alcohol intake: never History of recent travel: No Physical Exam Const: COMMON NORMALS: no acute distress and alert HENMT: COMMON NORMALS: normocephalic, EAC's normal and moist oral mucous membranes HEAD & SCALP: normocephalic EXTERNAL AUDITORY CANAL: EAC's normal Resp: COMMON NORMALS: normal respiratory effort, No use of accessory muscles and clear to auscultation bilaterally AUSCULTATION: clear to auscultation bilaterally Cardio: COMMON NORMALS: regular rhythm RATE: tachycardic RHYTHM: regular rhythm GI: COMMON NORMALS: Soft to palpation PALPATION: Yes Soft to palpation, Yes Tenderness to palpation present (GI) (Mild diffuse), No Guarding due to palpation present (GI) and No Rigid due to palpation Extremity: COMMON NORMALS: normal to inspection and full ROM Neuro: SENSORIUM/ORIENTATION: Yes alert Psych: COMMON NORMALS: mental status grossly normal and speech normal SPEECH: Yes normal speech Skin: COMMON NORMALS: no rashes or lesions noted and turgor normal GENERAL SKIN EXAM: no rashes or lesions noted and turgor normal Course Vital Signs: Vital signs: Vital Signs Temperature 97.9 F 10/20/22 22:30 Pulse Rate 102 H 10/21/22 00:32 Respiratory Rate 18 10/21/22 00:32 Blood Pressure 136/74 10/21/22 00:32 Pulse Oximetry 96 10/21/22 00:32 Oxygen Delivery Me thod 10/20/22 22:30 MDM - SOB/Dyspnea Lab Data 10/20/22 20:05 10/20/22 20:05 Labs/Radiology: Radiology Impressions Chest X-Ray 10/20/22 19:39 IMPRESSION: No acute findings. Laboratory Results WBC 9.1 10^3/uL (4.0-10.0) 10/20/22 20:05 RBC 5.26 10^6/uL (4.1-5.3) 10/20/22 20:05 Hgb 14.8 g/dL (11.5-15.3) 10/20/22 20:05 Hct 45.6 % (37.0-47.0) 10/20/22 20:05 MCV 86.7 fl (81-99) 10/20/22 20:05 MCH 28.1 pg (28.0-34.0) 10/20/22 20:05 MCHC 32.5 g/dL (30.0-36.0) 10/20/22 20:05 RDW 13.7 % (12.1-15.1) 10/20/22 20:05 Plt Count 306 10^3/cmm (130-400) 10/20/22 20:05 MPV 10.6 fL (7.4-10.4) H 10/20/22 20:05 Neut % (Auto) 70.1 % 10/20/22 20:05 Lymph % (Auto) 15.5 % 10/20/22 20:05 Chambers % (Auto) 13.0 % 10/20/22 20:05 Eos % (Auto) 0.6 % 10/20/22 20:05 Baso % (Auto) 0.6 % 10/20/22 20:05 Neut # (Auto) 6.36 10^3/uL (1.8-7.7) 10/20/22 20:05 Lymph # (Auto) 1.4 10^3/uL (0.8-4.8) 10/20/22 20:05 Chambers # (Auto) 1.2 10^3/uL (0.2-0.9) H 10/20/22 20:05 Eos # (Auto) 0.1 10^3/uL (0.0-0.8) 10/20/22 20:05 Baso # (Auto) 0.1 10^3/uL (0.0-0.1) 10/20/22 20:05 Nucleated RBC % (auto) 0 % 10/20/22 20:05 Nucleated RBCs # 0.0 /100WBC 10/20/22 20:05 Sodium 131 mmol/L (136-145) L 10/20/22 20:05 Potassium 3.5 mmol/L (3.5-5.1) 10/20/22 20:05 Chloride 90 mmol/L (98-107) L 10/20/22 20:05 Carbon Dioxide 27 mmol/L (22-29) 10/20/22 20:05 Anion Gap 17.5 (5-19) 10/20/22 20:05 BUN 23 mg/dL (6-20) H 10/20/22 20:05 Creatinine 1.7 mg/dL (0.5-0.9) H 10/20/22 20:05 GFR Calculation 31.8 mL/min (90-130) L 10/20/22 20:05 Glucose 131 mg/dL (65-115) H 10/20/22 20:05 Calculated Osmolality 277 mOsm/kg (285-295) L 10/20/22 20:05 Calcium 10.3 mg/dL (8.5-10.5) 10/20/22 20:05 Total Bilirubin 1.4 mg/dL (0.15-1.2) H 10/20/22 20:05 AST 24 U/L (0-32) 10/20/22 20:05 ALT 22 U/L (0-33) 10/20/22 20:05 Alkaline Phosphatase 160 U/L (35-105) H 10/20/22 20:05 Troponin T Baseline 31 ng/L (0-10) H 10/20/22 20:05 Troponin T 120 Minute 24.03 ng/L (0-10) H 10/20/22 22:45 Delta Troponin T -6.97 ABS# (0-10) L 10/20/22 22:45 Total Protein 7.6 g/dL (6.6-8.7) 10/20/22 20:05 Albumin 4.3 g/dL (3.5-5.2) 10/20/22 20:05 Globulin 3.3 g/dL (1.3-4.6) 10/20/22 20:05 Influenza Type A Ag negative (Negative) 10/20/22 22:05 Influenza Type B Ag negative (Negative) 10/20/22 22:05 SARS-CoV-2 Ag (Rapid) negative (Negative) 10/20/22 22:05 EKG Data EKG 1: I personally reviewed and interpreted this EKG as follows: EKG Interpretation Date: 10/20/22 EKG interpretation time: 22:36 Interpretation: nsr, pvc, HR 96, ME 140, nonspecif t wave changes, no acute st elevation or changes Discharge Plan Discharge Patient Disposition: Home Clinical Impression: Chest pain Condition: Stable Prescriptions: No Action (DME) night splint to left See Rx Instructions .Route .MEDSUPPLY Qty: 1 0RF Rx Instructions: As directed pantoprazole [Protonix] 40 mg tablet,delayed release (DR/EC) 40 mg PO BID 42 Days Qty: 84 0RF (DME) Cam Boot to the left See Rx Instructions .Route .MEDSUPPLY Qty: 1 0RF Rx Instructions: As directed metoprolol tartrate 50 mg tablet 50 mg PO BID Qty: 180 3RF hydralazine 50 mg tablet 50 mg PO TID Qty: 270 3RF amlodipine 10 mg tablet 10 mg PO DAILY nitroglycerin 0.6 mg tablet, sublingual 0.6 mg sublingual Q5M PRN Rx Instructions: Place one tab under tongue q 5 minutes, up to 3 doses, PRN chest pain; Ubrelvy 100 mg tablet See Rx Instructions .ROUTE .COMPLEX Qty: 10 3RF Dose Instruction: TAKE 1 TABLET BY MOUTH ONCE AT ONSET OF HEADACHE, MAX 1 TABLET IN 24 HOURS Rx Instructions: TAKE 1 TABLET BY MOUTH ONCE AT ONSET OF HEADACHE, MAX 1 TABLET IN 24 HOURS diclofenac sodium [Voltaren Arthritis Pain] 1 % gel 4 g topical QID PRN (Reason: Pain) Qty: 100 0RF Rx Instructions: apply to single knee, ankle, foot; for foot includes sole/toes/top of foot ([facility] Night Splint See Rx Instructions .Route .MEDSUPPLY Qty: 1 0RF Rx Instructions: As directed by HOME ([facility]) Night Splint See Rx Instructions .Route .MEDSUPPLY Qty: 1 0RF Rx Instructions: As directed nitroglycerin 0.6 mg/hr patch 24 hour See Rx Instructions .ROUTE .COMPLEX Qty: 30 1RF Dose Instruction: APPLY 1 PATCH NEEDED FOR PLANTAR FASCIA PAIN, ALLOW NITRATE FREE INTERVAL OF 10-12HRS/24HR PERIOD Rx Instructions: APPLY 1 PATCH NEEDED FOR PLANTAR FASCIA PAIN, ALLOW NITRATE FREE INTERVAL OF 10-12HRS/24HR PERIOD fluoxetine 40 mg capsule 80 mg PO QAM Qty: 60 0RF quetiapine 200 mg tablet extended release 24 hr 200 mg PO .q hs Qty: 30 0RF Rx Instructions: Take one tablet daily at bedtime trazodone 150 mg tablet 150 mg PO .qhs PRN (Reason: insomnia) Qty: 30 0RF Rx Instructions: Take 1/2 to 1 tablet at bedtime, if needed for insomnia clonazepam 0.5 mg tablet 0.5 mg PO BID PRN (Reason: anxiety/panic) Qty: 60 0RF Rx Instructions: Take 1 tablet up to twice a day, if needed for anxiety/panic Minipress 5 mg capsule 5 mg PO .q hs Qty: 30 1RF Rx Instructions: Take one capsule by mouth every night albuterol sulfate 90 mcg/actuation Hfa Aerosol Inhaler 1 - 2 puff INHALATION Q4H PRN (Reason: Shortness Of Breath) aspirin 81 mg Tablet,Chewable 81 mg PO QAM ipratropium-albuterol 0.5 mg-3 mg(2.5 mg base)/3 mL solution for nebulization 3 ml INHALATION DAILY@0800 polyethylene glycol 3350 [Miralax] 17 gram/dose powder 17 g PO DAILY PRN (Reason: Constipation) budesonide-formoterol [Symbicort] 160-4.5 mcg/actuation Hfa Aerosol Inhaler 2 puff INHALATION Q12H Trulance 3 mg tablet 3 mg PO DAILY chlorthalidone 50 mg tablet 50 mg PO QAM losartan 100 mg tablet 100 mg PO QAM tizanidine 4 mg tablet 4 mg PO Q8H PRN (Reason: Muscle Spasm) montelukast 10 mg tablet 10 mg PO DAILY gabapentin 100 mg capsule 100 mg PO TID PRN (Reason: Pain) hydroxychloroquine 200 mg tablet 200 mg PO BID cholecalciferol (vitamin D3) 1,250 mcg (50,000 unit) capsule 50,000 unit PO Q30D sucralfate [Carafate] 1 gram tablet 1 g PO Q6H Qty: 60 0RF cyclobenzaprine 10 mg tablet 10 mg PO TID PRN (Reason: muscle spasm) Qty: 14 0RF diclofenac sodium 50 mg tablet,delayed release (DR/EC) 50 mg PO Q12H PRN (Reason: pain) Qty: 20 0RF Colace 100 mg capsule 100 mg PO BID Qty: 14 1RF Rx Instructions: stool softener methocarbamol 750 mg tablet 750 mg PO Q6H PRN (Reason: spasms) Qty: 20 0RF Naprosyn 500 mg tablet 500 mg PO BID PRN (Reason: pain) Qty: 20 0RF Discharge Orders: Discharge ED (Routine); Ordered 10/20/22 Ordered By: Leon Moura Referrals: Alpesh Garcia MD [Primary Care Provider] - 1-3 days Discharge Diet: Advance as tolerated Discharge Activity: Resume usual activity Patient Instructions: Chest Pain (ED) Coding Level of Care Code ED Healthcare Market Consultant for Chg Fwd Exam Comprehensive Documented by User: Leon Moura MD 10/21/22 00:42 HPI - SOB/Dyspnea General: Chief Complaint: Shortness of Breath/Dyspnea Stated Complaint: flu like symptoms, dizzy spells Time Seen by Provider: 10/20/22 20:54 PFSH ED PFSH: Medical History Abnormal reflex COPD (chronic obstructive pulmonary disease) GERD (gastroesophageal reflux disease) Helicobacter pylori gastritis HTN (hypertension) Neck pain Psychiatric care Psychiatric care Jem's ring Surgical History History of cholecystectomy History of esophagogastroduodenoscopy Hx of section Hx of colonoscopy [facility] Hx of hysterectomy Family History Family/Other Cancer Diabetes Father Diabetes Hyperlipidemia Hypertension Stroke Mother Hypertension Stroke CAD (coronary artery disease) Rheumatoid arthritis Other Major depressive disorder, recurrent severe without psychotic features Panic disorder [episodic paroxysmal anxiety] Post-traumatic stress disorder, chronic Social History Smoking and tobacco status: never smoked Second hand smoke exposure: Yes Alcohol intake: never History of recent travel: No Course Vital Signs: Vital signs: Vital Signs Temperature 97.9 F 10/20/22 22:30 Pulse Rate 102 H 10/21/22 00:32 Respiratory Rate 18 10/21/22 00:32 Blood Pressure 136/74 10/21/22 00:32 Pulse Oximetry 96 10/21/22 00:32 Oxygen Delivery Me thod 10/20/22 22:30 MDM - SOB/Dyspnea Medical Decision Making Took patient over from previous provider pending 2-hour troponin 2-hour troponin here is negative no signs of coronary artery disease x-ray shows no signs of pneumonia she is stable for discharge she is to follow-up with PCP and return if worsening. Lab Data 10/20/22 20:05 10/20/22 20:05 Labs/Radiology: Radiology Impressions Chest X-Ray 10/20/22 19:39 IMPRESSION: No acute findings. Laboratory Results WBC 9.1 10^3/uL (4.0-10.0) 10/20/22 20:05 RBC 5.26 10^6/uL (4.1-5.3) 10/20/22 20:05 Hgb 14.8 g/dL (11.5-15.3) 10/20/22 20:05 Hct 45.6 % (37.0-47.0) 10/20/22 20:05 MCV 86.7 fl (81-99) 10/20/22 20:05 MCH 28.1 pg (28.0-34.0) 10/20/22 20:05 MCHC 32.5 g/dL (30.0-36.0) 10/20/22 20:05 RDW 13.7 % (12.1-15.1) 10/20/22 20:05 Plt Count 306 10^3/cmm (130-400) 10/20/22 20:05 MPV 10.6 fL (7.4-10.4) H 10/20/22 20:05 Neut % (Auto) 70.1 % 10/20/22 20:05 Lymph % (Auto) 15.5 % 10/20/22 20:05 Chambers % (Auto) 13.0 % 10/20/22 20:05 Eos % (Auto) 0.6 % 10/20/22 20:05 Baso % (Auto) 0.6 % 10/20/22 20:05 Neut # (Auto) 6.36 10^3/uL (1.8-7.7) 10/20/22 20:05 Lymph # (Auto) 1.4 10^3/uL (0.8-4.8) 10/20/22 20:05 Chambers # (Auto) 1.2 10^3/uL (0.2-0.9) H 10/20/22 20:05 Eos # (Auto) 0.1 10^3/uL (0.0-0.8) 10/20/22 20:05 Baso # (Auto) 0.1 10^3/uL (0.0-0.1) 10/20/22 20:05 Nucleated RBC % (auto) 0 % 10/20/22 20:05 Nucleated RBCs # 0.0 /100WBC 10/20/22 20:05 Sodium 131 mmol/L (136-145) L 10/20/22 20:05 Potassium 3.5 mmol/L (3.5-5.1) 10/20/22 20:05 Chloride 90 mmol/L (98-107) L 10/20/22 20:05 Carbon Dioxide 27 mmol/L (22-29) 10/20/22 20:05 Anion Gap 17.5 (5-19) 10/20/22 20:05 BUN 23 mg/dL (6-20) H 10/20/22 20:05 Creatinine 1.7 mg/dL (0.5-0.9) H 10/20/22 20:05 GFR Calculation 31.8 mL/min (90-130) L 10/20/22 20:05 Glucose 131 mg/dL (65-115) H 10/20/22 20:05 Calculated Osmolality 277 mOsm/kg (285-295) L 10/20/22 20:05 Calcium 10.3 mg/dL (8.5-10.5) 10/20/22 20:05 Total Bilirubin 1.4 mg/dL (0.15-1.2) H 10/20/22 20:05 AST 24 U/L (0-32) 10/20/22 20:05 ALT 22 U/L (0-33) 10/20/22 20:05 Alkaline Phosphatase 160 U/L (35-105) H 10/20/22 20:05 Troponin T Baseline 31 ng/L (0-10) H 10/20/22 20:05 Troponin T 120 Minute 24.03 ng/L (0-10) H 10/20/22 22:45 Delta Troponin T -6.97 ABS# (0-10) L 10/20/22 22:45 Total Protein 7.6 g/dL (6.6-8.7) 10/20/22 20:05 Albumin 4.3 g/dL (3.5-5.2) 10/20/22 20:05 Globulin 3.3 g/dL (1.3-4.6) 10/20/22 20:05 Influenza Type A Ag negative (Negative) 10/20/22 22:05 Influenza Type B Ag negative (Negative) 10/20/22 22:05 SARS-CoV-2 Ag (Rapid) negative (Negative) 10/20/22 22:05 Discharge Plan Discharge Patient Disposition: Home Clinical Impression: Chest pain Condition: Stable Prescriptions: No Action (DME) night splint to left See Rx Instructions .Route .MEDSUPPLY Qty: 1 0RF Rx Instructions: As directed pantoprazole [Protonix] 40 mg tablet,delayed release (DR/EC) 40 mg PO BID 42 Days Qty: 84 0RF (DME) Cam Boot to the left See Rx Instructions .Route .MEDSUPPLY Qty: 1 0RF Rx Instructions: As directed metoprolol tartrate 50 mg tablet 50 mg PO BID Qty: 180 3RF hydralazine 50 mg tablet 50 mg PO TID Qty: 270 3RF amlodipine 10 mg tablet 10 mg PO DAILY nitroglycerin 0.6 mg tablet, sublingual 0.6 mg sublingual Q5M PRN Rx Instructions: Place one tab under tongue q 5 minutes, up to 3 doses, PRN chest pain; Ubrelvy 100 mg tablet See Rx Instructions .ROUTE .COMPLEX Qty: 10 3RF Dose Instruction: TAKE 1 TABLET BY MOUTH ONCE AT ONSET OF HEADACHE, MAX 1 TABLET IN 24 HOURS Rx Instructions: TAKE 1 TABLET BY MOUTH ONCE AT ONSET OF HEADACHE, MAX 1 TABLET IN 24 HOURS diclofenac sodium [Voltaren Arthritis Pain] 1 % gel 4 g topical QID PRN (Reason: Pain) Qty: 100 0RF Rx Instructions: apply to single knee, ankle, foot; for foot includes sole/toes/top of foot (DME) Night Splint See Rx Instructions .Route .MEDSUPPLY Qty: 1 0RF Rx Instructions: As directed by HOME (DME) Night Splint See Rx Instructions .Route .MEDSUPPLY Qty: 1 0RF Rx Instructions: As directed nitroglycerin 0.6 mg/hr patch 24 hour See Rx Instructions .ROUTE .COMPLEX Qty: 30 1RF Dose Instruction: APPLY 1 PATCH NEEDED FOR PLANTAR FASCIA PAIN, ALLOW NITRATE FREE INTERVAL OF 10-12HRS/24HR PERIOD Rx Instructions: APPLY 1 PATCH NEEDED FOR PLANTAR FASCIA PAIN, ALLOW NITRATE FREE INTERVAL OF 10-12HRS/24HR PERIOD fluoxetine 40 mg capsule 80 mg PO QAM Qty: 60 0RF quetiapine 200 mg tablet extended release 24 hr 200 mg PO .q hs Qty: 30 0RF Rx Instructions: Take one tablet daily at bedtime trazodone 150 mg tablet 150 mg PO .qhs PRN (Reason: insomnia) Qty: 30 0RF Rx Instructions: Take 1/2 to 1 tablet at bedtime, if needed for insomnia clonazepam 0.5 mg tablet 0.5 mg PO BID PRN (Reason: anxiety/panic) Qty: 60 0RF Rx Instructions: Take 1 tablet up to twice a day, if needed for anxiety/panic Minipress 5 mg capsule 5 mg PO .q hs Qty: 30 1RF Rx Instructions: Take one capsule by mouth every night albuterol sulfate 90 mcg/actuation Hfa Aerosol Inhaler 1 - 2 puff INHALATION Q4H PRN (Reason: Shortness Of Breath) aspirin 81 mg Tablet,Chewable 81 mg PO QAM ipratropium-albuterol 0.5 mg-3 mg(2.5 mg base)/3 mL solution for nebulization 3 ml INHALATION DAILY@0800 polyethylene glycol 3350 [Miralax] 17 gram/dose powder 17 g PO DAILY PRN (Reason: Constipation) budesonide-formoterol [Symbicort] 160-4.5 mcg/actuation Hfa Aerosol Inhaler 2 puff INHALATION Q12H Trulance 3 mg tablet 3 mg PO DAILY chlorthalidone 50 mg tablet 50 mg PO QAM losartan 100 mg tablet 100 mg PO QAM tizanidine 4 mg tablet 4 mg PO Q8H PRN (Reason: Muscle Spasm) montelukast 10 mg tablet 10 mg PO DAILY gabapentin 100 mg capsule 100 mg PO TID PRN (Reason: Pain) hydroxychloroquine 200 mg tablet 200 mg PO BID cholecalciferol (vitamin D3) 1,250 mcg (50,000 unit) capsule 50,000 unit PO Q30D sucralfate [Carafate] 1 gram tablet 1 g PO Q6H Qty: 60 0RF cyclobenzaprine 10 mg tablet 10 mg PO TID PRN (Reason: muscle spasm) Qty: 14 0RF diclofenac sodium 50 mg tablet,delayed release (/EC) 50 mg PO Q12H PRN (Reason: pain) Qty: 20 0RF Colace 100 mg capsule 100 mg PO BID Qty: 14 1RF Rx Instructions: stool softener methocarbamol 750 mg tablet 750 mg PO Q6H PRN (Reason: spasms) Qty: 20 0RF Naprosyn 500 mg tablet 500 mg PO BID PRN (Reason: pain) Qty: 20 0RF Discharge Orders: Discharge ED (Routine); Ordered 10/20/22 Ordered By: Leon Moura Referrals: Alpesh Garcia MD [Primary Care Provider] - 1-3 days Discharge Diet: Advance as tolerated Discharge Activity: Resume usual activity Patient Instructions: Chest Pain (ED) Coding Level of Care Code ED Healthcare Market Consultant for Chg Fwd Exam Comprehensive
--- NOTE | 2022-10-20 21:39 | ECG_ITS ---
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 Measurements Intervals [place] Rate: 96 P: -29 [place]: 140 QRS: 37 QRSD: 102 T: -15 QT: 351 QTc: 445 Interpretive Statements SINUS RHYTHM WITH FREQUENT VENTRICULAR PREMATURE COMPLEXES NONSPECIFIC T-WAVE ABNORMALITY ABNORMAL RHYTHM ECG Compared to ECG 10/09/2022 11:17:32 Ventricular premature complex(es) now present T-wave abnormality still present Electronically Signed On 10-22-2022 20:31:45 SCOW HAND by Tracy Bo M.D. [id number]
[2022-10-20] MEDS: acetaminophen 325 mg Tablet 650 MG PO (22:03)
[2022-10-20 22:30] VITALS: BP 116/67; PULSE 83; TEMP 36.6; O2SAT 91
[2022-10-20] MEDS: sodium chloride 0.9% 1,000 ML 999 ML IV (22:50)
[2022-10-20 22:51] LABS: Influenza A by IFA negative (Negative); Influenza B by IFA negative (Negative)
[2022-10-20 22:52] LABS: SARS Covid-2 Antigen negative (Negative)
[2022-10-20 23:14] LABS: Troponin 5 2HR 24.03 ng/L (0-10)
[2022-10-20 23:28] LABS: Troponin 5 2HR Delta -6.97 ABS# (0-10)
[2022-10-21 00:32] VITALS: BP 136/74; PULSE 102; RESP 18; O2SAT 96
== END 2022-10-21 00:07 | disposition home or self-care (01) ==
PROVIDERS: Student in an Organized Health Care Education/Training Program; Emergency Provider Emergency Medicine; PCP Family Medicine
DX: R07.9 Chest pain, unspecified (principal); Z79.82 Long term (current) use of aspirin; Z20.822 Contact with and (suspected) exposure to COVID-19; Z77.22 Contact with and (suspected) exposure to environmental tobacco smoke (acute) (chronic); J44.9 Chronic obstructive pulmonary disease, unspecified; I10 Essential (primary) hypertension
CPT/HCPCS: 36415; 71045; 80053; 84484; 85025; 87426; 87804; 93005; 96360; 99285; J7030

== ENCOUNTER 2022-11-04 08:04 | Outpatient (CLI) | payer MEDICAID, SELFPAY ==
--- NOTE | 2022-11-04 08:00 | MR_ITS ---
WS: [id number] MRI LUMBAR SPINE NONCONTRAST TECHNIQUE: Sagittal T1, T2 and STIR imaging. Axial T1 and T2 imaging. CLINICAL INFORMATION: lumbar pain COMPARISON: CT August 30, 2022 FINDINGS: Mild lumbar curve. No acute compression. No high-grade central canal stenosis. Endplate Schmorl's nod es T12-L1 and L1-L2. L1-L2: Mild annular bulging. Slight narrowing of the RIGHT subarticular recess. Spinal canal and fora men are patent. L2-L3: Small RIGHT foraminal protrusion slightly contacts the exiting RIGHT L2 nerve root. Mild RIGHT foraminal narrowing. Spinal canal and foramen are patent. Mild facet arthropathy. L3-L4: No significant disc bulging. Mild facet arthropathy. Spinal canal and foramen are patent. L4-L5: Mild annular bulging. Impingement on the traversing L5 nerve roots bilaterally. RIGHT eccentri c bulging with a small annular fissure. Slight contact of the exiting RIGHT L4 nerve root. Mild RIGHT foraminal narrowing. LEFT foramen is patent. Mild facet arthropathy. L5-S1: No significant disc bulging. Mild facet arthropathy. Spinal canal and foramen are patent. Visualized pelvic bony structures: Normal. Paravertebral soft tissues: Normal. MR/MR lumbar spine wo con* [id number] IMPRESSION: 1. Mild lumbar curve. No acute compression. No high-grade central canal stenos is. 2. Small RIGHT foraminal protrusion L4-L5 with a small annular fissure. Slight contact of the exiting RIGHT L4 nerve root with mild RIGHT foraminal narrowing . 3. Annular bulging L4-L5 with narrowing of the subarticular recess bilaterally and slight impingement traversing L5 nerve roots. 4. Tiny RIGHT foraminal protrusion L2-L3 with contact exiting RIGHT L2 nerve r oot. 5. Mild facet arthropathy L3-L4 L4-L5.
== END 2022-11-04 08:05 | disposition home or self-care (01) ==
LOC: RAD 08:05
PROVIDERS: PCP Family Medicine; Visit Provider Orthopaedic Surgery
DX: M54.42 Lumbago with sciatica, left side (principal)
CPT/HCPCS: 72148

== ENCOUNTER 2022-11-04 08:57 | Emergency (ER) | payer MEDICAID, SELFPAY ==
--- NOTE | 2022-11-04 08:59 | ECG_ITS ---
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 Measurements Intervals [place] Rate: 69 P: 9 [place]: 171 QRS: 25 QRSD: 91 T: 23 QT: 392 QTc: 422 Interpretive Statements SINUS RHYTHM Compared to ECG 10/20/2022 22:36:32 Ventricular premature complex(es) no longer present T-wave abnormality no longer present Electronically Signed On 11-04-2022 9:56:42 TIME PIECE REPAIRER by Valente Orozco M.D. [id number]
[2022-11-04 09:02] VITALS: BP 197/106; PULSE 80; RESP 18; TEMP 36.1; O2SAT 17; BMI 41.3
[2022-11-04] MEDS: ondansetron 2 mg/ML SDV 2 mL 4 MG IVP (09:16)
[2022-11-04] MEDS: sodium chloride 0.9% 1,000 ML 999 ML IV (09:19)
--- NOTE | 2022-11-04 09:20 | W.ED.ABDPA2 ---
HPI - Abdominal Pain General: Chief Complaint: Abdominal Pain Stated Complaint: n/v/d Time Seen by Provider: 11/04/22 08:59 Source: patient Mode of arrival: ambulatory History of Present Illness: 51-year-old female presents emergency room complaining of abdominal discomfort. She is recently had a EGD by Dr. 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 Currently Dr. Holman's notes it was rather easily done but he felt she would need recurrent dilations in the future. Additionally she tested positive for H. pylori on biopsy. She complaining of the last few days of increasing abdominal discomfort difficulty with keeping anything down nausea and vomiting and some diarrhea as well. MD elicited complaint: abdominal pain Onset (ago): day(s) (2) Pain Consistency: constant Location: Epigastric Severity: moderate Quality: sharp Radiation: none Exacerbating factors: nothing Relieving factors: nothing Associated Symptoms: Reports GI cramping, diarrhea and poor appetite; Denies anorexia, belching, bloating, change in bowel habits, change in stool character, chills, coffee ground emesis, constipation, dyspepsia, dysuria, excessive flatus, fever(s), heartburn, hematochezia, hematuria, hematemesis, fecal incontinence, loose stools, melena, nausea, syncope and vomiting Review of Systems Const: Denies: fever(s) or chills ENMT: Denies: throat pain, ear or mastoid pain, nasal discharge or nasal congestion Card: Denies: syncope Resp: Denies: dyspnea, productive cough or non-productive cough GI: Reports: diarrhea and GI cramping; Denies: nausea, vomiting, hematemesis, coffee ground emesis, heartburn, constipation, bloating, belching, excessive flatus, fecal incontinence, change in bowel habits, change in stool character, hematochezia or melena : Denies: dysuria, urinary frequency, urinary urgency or hematuria Skin/Breast: Denies: rash or pruritus PFSH ED PFSH: Medical History Abnormal reflex COPD (chronic obstructive pulmonary disease) GERD (gastroesophageal reflux disease) Helicobacter pylori gastritis HTN (hypertension) Neck pain Psychiatric care Psychiatric care Schatzki's ring Surgical History History of cholecystectomy History of esophagogastroduodenoscopy Hx of section Hx of colonoscopy 2020 [facility] Hx of hysterectomy Family History Family/Other Cancer Diabetes Father Diabetes Hyperlipidemia Hypertension Stroke Mother Hypertension Stroke CAD (coronary artery disease) Rheumatoid arthritis Other Major depressive disorder, recurrent severe without psychotic features Panic disorder [episodic paroxysmal anxiety] Post-traumatic stress disorder, chronic Social History Smoking and tobacco status: never smoked Second hand smoke exposure: Yes Alcohol intake: never History of recent travel: No Physical Exam Const: GENERAL APPEARANCE: cooperative and comfortable ORIENTATION/CONSCIOUSNESS: Yes awake, Yes oriented to person, Yes oriented to place and Yes oriented to time HENMT: COMMON NORMALS: normocephalic, atraumatic and hearing grossly normal bilaterally HEAD & SCALP: normocephalic and atraumatic Resp: COMMON NORMALS: normal respiratory effort, No retractions, No use of accessory muscles and clear to auscultation bilaterally AUSCULTATION: clear to auscultation bilaterally Cardio: COMMON NORMALS: regular rate, regular rhythm and No murmurs present (Cardio) RATE: regular rate RHYTHM: regular rhythm GI: COMMON NORMALS: Soft to palpation and No hepatosplenomegaly present AUSCULTATION: Yes normoactive bowel sounds PALPATION: Yes Soft to palpation, No Tenderness to palpation present (GI), No Guarding due to palpation present (GI) and Yes No hepatosplenomegaly present Extremity: COMMON NORMALS: normal to inspection, capillary refill normal, no clubbing, cyanosis or edema, no calf tenderness and no pedal edema Neuro: SENSORIUM/ORIENTATION: Yes oriented to person, Yes oriented to place and Yes oriented to time Skin: COMMON NORMALS: no rashes or lesions noted GENERAL SKIN EXAM: no rashes or lesions noted Course Vital Signs: Vital signs: Vital Signs Temperature 97.0 F L 11/04/22 10:43 Pulse Rate 76 11/04/22 11:51 Respiratory Rate 18 11/04/22 11:51 Blood Pressure 135/78 11/04/22 11:51 Pulse Oximetry 93 11/04/22 11:51 Oxygen Delivery Me thod 11/04/22 10:43 MDM - Abdominal Pain Medical Decision Making Labs and imaging unremarkable. Her abdominal exam is generally benign. Start Carafate every 6 hours as needed continue Protonix 40 twice daily follow-up with Dr. Holman return if is further problems Medical Records I reviewed the patient's medical records. Lab Data I reviewed the patient's lab results. 11/04/22 09:15 11/04/22 09:15 Labs/Radiology: Laboratory Results WBC 7.9 10^3/uL (4.0-10.0) 11/04/22 09:15 RBC 5.00 10^6/uL (4.1-5.3) 11/04/22 09:15 Hgb 13.8 g/dL (11.5-15.3) 11/04/22 09:15 Hct 44.3 % (37.0-47.0) 11/04/22 09:15 MCV 88.6 fl (81-99) 11/04/22 09:15 MCH 27.6 pg (28.0-34.0) L 11/04/22 09:15 MCHC 31.2 g/dL (30.0-36.0) 11/04/22 09:15 RDW 14.0 % (12.1-15.1) 11/04/22 09:15 Plt Count 379 10^3/cmm (130-400) 11/04/22 09:15 MPV 10.3 fL (7.4-10.4) 11/04/22 09:15 Neut % (Auto) 63.6 % 11/04/22 09:15 Lymph % (Auto) 26.6 % 11/04/22 09:15 [place] % (Auto) 7.4 % 11/04/22 09:15 Eos % (Auto) 1.6 % 11/04/22 09:15 Baso % (Auto) 0.5 % 11/04/22 09:15 Neut # (Auto) 5.02 10^3/uL (1.8-7.7) 11/04/22 09:15 Lymph # (Auto) 2.1 10^3/uL (0.8-4.8) 11/04/22 09:15 [place] # (Auto) 0.6 10^3/uL (0.2-0.9) 11/04/22 09:15 Eos # (Auto) 0.1 10^3/uL (0.0-0.8) 11/04/22 09:15 Baso # (Auto) 0.0 10^3/uL (0.0-0.1) 11/04/22 09:15 Nucleated RBC % (auto) 0 % 11/04/22 09:15 Nucleated RBCs # 0.0 /100WBC 11/04/22 09:15 Sodium 139 mmol/L (136-145) 11/04/22 10:00 Potassium 3.8 mmol/L (3.5-5.1) 11/04/22 10:00 Chloride 103 mmol/L (98-107) 11/04/22 10:00 Carbon Dioxide 30 mmol/L (22-29) H 11/04/22 10:00 Anion Gap 9.8 (5-19) 11/04/22 10:00 BUN 8 mg/dL (6-20) 11/04/22 10:00 Creatinine 0.7 mg/dL (0.5-0.9) 11/04/22 10:00 GFR Calculation 88.6 mL/min (90-130) L 11/04/22 10:00 Glucose 98 mg/dL (65-115) 11/04/22 10:00 Calculated Osmolality 286 mOsm/kg (285-295) 11/04/22 10:00 Calcium 9.0 mg/dL (8.5-10.5) 11/04/22 10:00 Total Bilirubin 1.0 mg/dL (0.15-1.2) 11/04/22 10:00 AST 13 U/L (0-32) 11/04/22 10:00 ALT 34 U/L (0-33) H 11/04/22 10:00 Alkaline Phosphatase 96 U/L (35-105) 11/04/22 10:00 Total Protein 6.8 g/dL (6.6-8.7) 11/04/22 10:00 Albumin 3.6 g/dL (3.5-5.2) 11/04/22 10:00 Globulin 3.2 g/dL (1.3-4.6) 11/04/22 10:00 Urine Color Straw (Yellow) 11/04/22 10:15 Urine Appearance Clear (CLEAR) 11/04/22 10:15 Urine pH 6 (5-7) 11/04/22 10:15 Ur Specific [place] 1.010 (1.005-1.030) 11/04/22 10:15 Urine Protein Neg (Negative) 11/04/22 10:15 Urine Glucose (UA) Norm (Normal) 11/04/22 10:15 Urine Ketones Negative (Negative) 11/04/22 10:15 Urine Blood Neg (Negative) 11/04/22 10:15 Urine Nitrate Negative (Negative) 11/04/22 10:15 Urine Bilirubin Neg (Negative) 11/04/22 10:15 Urine Urobilinogen Norm mg/dL (Negative) 11/04/22 10:15 Ur Leukocyte Esterase Negative (Negative) 11/04/22 10:15 Discharge Plan Discharge Patient Disposition: Home Clinical Impression: GERD (gastroesophageal reflux disease) Condition: Stable Prescriptions: New Carafate 1 gram tablet 1 g PO Q6H PRN (Reason: stomach upset) 28 Days Qty: 112 0RF promethazine 25 mg tablet 25 mg PO Q6H PRN (Reason: nausea and vomiting) Qty: 20 0RF Continued pantoprazole [Protonix] 40 mg tablet,delayed release (DR/EC) 40 mg PO BID 42 Days Qty: 84 0RF No Action (DME) night splint to left See Rx Instructions .Route .MEDSUPPLY Qty: 1 0RF Rx Instructions: As directed (DME) Cam Boot to the left See Rx Instructions .Route .MEDSUPPLY Qty: 1 0RF Rx Instructions: As directed metoprolol tartrate 50 mg tablet 50 mg PO BID Qty: 180 3RF hydralazine 50 mg tablet 50 mg PO TID Qty: 270 3RF amlodipine 10 mg tablet 10 mg PO BEDTIME diclofenac sodium [Voltaren Arthritis Pain] 1 % gel 4 g topical QID PRN (Reason: Pain) Qty: 100 0RF Rx Instructions: apply to single knee, ankle, foot; for foot includes sole/toes/top of foot (DME) Night Splint See Rx Instructions .Route .MEDSUPPLY Qty: 1 0RF Rx Instructions: As directed by HOME (DME) Night Splint See Rx Instructions .Route .MEDSUPPLY Qty: 1 0RF Rx Instructions: As directed nitroglycerin 0.6 mg/hr patch 24 hour See Rx Instructions .ROUTE .COMPLEX Qty: 30 1RF Dose Instruction: APPLY 1 PATCH NEEDED FOR PLANTAR FASCIA PAIN, ALLOW NITRATE FREE INTERVAL OF 10-12HRS/24HR PERIOD Rx Instructions: APPLY 1 PATCH NEEDED FOR PLANTAR FASCIA PAIN, ALLOW NITRATE FREE INTERVAL OF 10-12HRS/24HR PERIOD fluoxetine 40 mg capsule 80 mg PO QAM Qty: 60 0RF clonazepam 0.5 mg tablet 0.5 mg PO BID PRN (Reason: anxiety/panic) Qty: 60 0RF diazepam [Valium] 5 mg tablet 5 mg PO ONCE PRN (Reason: anxiety) 1 Days Qty: 2 0RF albuterol sulfate 90 mcg/actuation Hfa Aerosol Inhaler 1 - 2 puff INHALATION Q4H PRN (Reason: Shortness Of Breath) aspirin 81 mg Tablet,Chewable 81 mg PO QAM ipratropium-albuterol 0.5 mg-3 mg(2.5 mg base)/3 mL solution for nebulization 3 ml INHALATION DAILY PRN (Reason: Shortness Of Breath) polyethylene glycol 3350 [Miralax] 17 gram/dose powder 17 g PO DAILY PRN (Reason: Constipation) budesonide-formoterol [Symbicort] 160-4.5 mcg/actuation Hfa Aerosol Inhaler 2 puff INHALATION Q12H chlorthalidone 50 mg tablet 50 mg PO QAM losartan 100 mg tablet 100 mg PO QAM montelukast 10 mg tablet 10 mg PO DAILY gabapentin 100 mg capsule 100 mg PO TID PRN (Reason: Pain) hydroxychloroquine 200 mg tablet 200 mg PO BID cyclobenzaprine 10 mg tablet 10 mg PO TID PRN (Reason: muscle spasm) Qty: 14 0RF prednisone 20 mg tablet 20 mg PO BID Rx Instructions: for 5 days (rx filled 10/28/22) isosorbide mononitrate 60 mg tablet extended release 24 hr 60 mg PO DAILY amoxicillin 875 mg tablet 875 mg PO BID Rx Instructions: for 10 days (rx filled 10/28/22) Nitrostat 0.4 mg Tablet, Sublingual 0.4 mg SUBLINGUAL Q5M PRN (Reason: Chest Pain) Rx Instructions: do not exceed 3 doses per episode Minipress 5 mg capsule 10 mg PO BEDTIME trazodone 150 mg tablet 150 mg PO BEDTIME quetiapine 200 mg tablet extended release 24 hr 200 mg PO BEDTIME Colace 100 mg capsule 100 mg PO BID PRN (Reason: stool softener) naproxen [Naprosyn] 500 mg tablet 500 mg PO BID PRN (Reason: pain) Qty: 20 0RF Discharge Orders: Discharge ED (Routine); Ordered 11/04/22 Ordered By: Juan Sutton Referrals: Alpesh Garcia MD [Primary Care Provider] - Patient Instructions: Opioid Safety, Pain Management Activity Restrictions/Additional Instructions: You were seen today for abdominal discomfort reviewed your previous notes from when you had seen Dr. Holman. Recommend that you continue his Protonix twice daily clear liquid diet for the next 24 to 48 hours you can use promethazine as needed for nausea and vomiting and Carafate 1 g tablet every 6 hours as needed for stomach upset. Avoid red meats tomato-based products citrus fruits or products spicy foods and carbonated beverages. Follow-up with Dr. Holman within the next 2 weeks. Coding Level of Care Code ED Alternative Medicine Practitioner for Chg Fwd Exam Detailed
[2022-11-04 09:21] VITALS: BP 140/81; PULSE 80; O2SAT 93
[2022-11-04 09:26] LABS: Basophils % 0.5 %; Eosinophils # 0.1 10^3/uL (0.0-0.8); Eosinophils % 1.6 %; Hematocrit 44.3 % (37.0-47.0); Hemoglobin 13.8 g/dL (11.5-15.3); Lymphocytes # 2.1 10^3/uL (0.8-4.8); Lymphocytes % 26.6 %; Mean Corpuscular HGB Conc 31.2 g/dL (30.0-36.0); Mean Corpuscular Hemoglobin 27.6 pg (28.0-34.0); Mean Corpuscular Volume 88.6 fl (81-99); Mean Platelet Volume 10.3 fL (7.4-10.4); Monocytes # 0.6 10^3/uL (0.2-0.9); Monocytes % 7.4 %; Neutrophils # 5.02 10^3/uL (1.8-7.7); Neutrophils % 63.6 %; Nucleated Red Blood Cells % 0 %; Platelet Count 379 10^3/cmm (130-400); White Blood Count 7.9 10^3/uL (4.0-10.0)
[2022-11-04] MEDS: lidocaine 2% viscous 15 ML, aluminum-mag hydrox-simethicon 30 ML, sucralfate oral liq 1 GM PO (09:47)
[2022-11-04] MEDS: pantoprazole 40 mg SDV IVP (09:47)
[2022-11-04 10:27] LABS: Add Urine Microscopic? NO; Charge for UA Resulting for Rev
[2022-11-04 10:29] LABS: Urine Appearance Clear (CLEAR); Urine Color Straw (Yellow)
[2022-11-04 10:30] LABS: Bilirubin Urine Neg (Negative); Blood Urine Neg (Negative); Glucose Urine UA Norm (Normal); Ketones Urine Negative (Negative); Leukocyte Esterase Urine Negative (Negative); Nitrate Urine Negative (Negative); Protein Urine Neg (Negative); Urobilinogen Urine Norm (Negative); pH Urine 6 (5-7)
[2022-11-04 10:38] LABS: Alanine Aminotransferase 34 U/L (0-33); Albumin Level 3.6 g/dL (3.5-5.2); Alkaline Phosphatase 96 U/L (35-105); Aspartate Amino Transferase 13 U/L (0-32); Blood Urea Nitrogen 8 mg/dL (6-20); Carbon Dioxide 30 mmol/L (22-29); Chloride 103 mmol/L (98-107); Globulin 3.2 g/dL (1.3-4.6); Glomerular Filtration Rate 88.6 mL/min (90-130); Glucose 98 mg/dL (65-115); Osmolality Calculated 286 mOsm/kg (285-295); Sodium 139 mmol/L (136-145); Total Protein 6.8 g/dL (6.6-8.7)
[2022-11-04 10:39] LABS: Anion Gap 9.8 (5-19); Potassium 3.8 mmol/L (3.5-5.1)
[2022-11-04 10:43] VITALS: BP 140/81; PULSE 80; RESP 18; TEMP 36.1; O2SAT 93
[2022-11-04 11:51] VITALS: BP 135/78; PULSE 76; RESP 18; O2SAT 93
== END 2022-11-04 11:52 | disposition home or self-care (01) ==
PROVIDERS: Emergency Provider Family Medicine; PCP Family Medicine
DX: K21.9 Gastro-esophageal reflux disease without esophagitis (principal); Z79.82 Long term (current) use of aspirin; J44.9 Chronic obstructive pulmonary disease, unspecified; I10 Essential (primary) hypertension
CPT/HCPCS: 80053; 81003; 85025; 93005; 96374; 96375; 99284; C9113; J2405; J7030

== ENCOUNTER → 2022-11-07 10:04 | Outpatient (BNVA) | payer MEDICAID, SELFPAY | PROVIDERS: PCP Family Medicine; Visit Provider Orthopaedic Surgery | DX: M47.816 Spondylosis without myelopathy or radiculopathy, lumbar region (principal) | CPT/HCPCS: 99214 ==

== ENCOUNTER → 2022-11-12 07:52 | Outpatient (BNVA) | payer MEDICAID, SELFPAY | PROVIDERS: PCP Family Medicine; Visit Provider Surgery | DX: R13.10 Dysphagia, unspecified (principal); K21.9 Gastro-esophageal reflux disease without esophagitis; K22.2 Esophageal obstruction; K58.9 Irritable bowel syndrome, unspecified | CPT/HCPCS: 99213 ==

== ENCOUNTER 2022-11-27 05:33 | Day surgery (SDC) | payer MEDICAID, SELFPAY ==
[2022-11-25 11:46] VITALS: BMI 42.0
--- NOTE | 2022-11-27 05:56 | W.PM.OPSUD ---
Surgery/Procedure H&P Update DATE OF PROCEDURE: November 27, 2022 DATE H&P PERFORMED: 11/12/22 PLANNED PROCEDURE: Operation Date: 11/27/22 07:00 [place] [id number] egd w/balloon dial K21.9,R13.10(Not Applicable) - Amos Holman DO
[2022-11-27 06:10] VITALS: BP 170/110; PULSE 87; RESP 17; TEMP 36.1; O2SAT 96
[2022-11-27] MEDS: sodium chloride 0.9% 1,000 ML 30 ML IV (06:20)
--- NOTE | 2022-11-27 06:28 | P.ANESASSM_ITS ---
Pre-Anesthetic Assessment Height/Weight: Height 1.63 m Weight 111.13 kg Temp Pulse Resp BP Pulse Ox O2 Del Method 97 F L 87 17 170/110 96 11/27/22 06:10 11/27/22 06:10 11/27/22 06:10 11/27/22 06:10 11/27/22 06:10 11/27/22 06:10 Preop Diagnosis: Dysphagia Operation Date: 11/27/22 07:00 Proposed Procedures p [id number] egd w/balloon dial K21.9,R13.10(Not Applicable) - Amos Holman DO Familial anesthetic complications: None Was Beta Gaby taken within 24 hours: Yes Was Clonidine taken within 24 hours: N/A Last intake: Intake Last Liquid Date 11/26/22 Last Liquid Time 23:15 Last Solid Date 11/26/22 Last Solid Time 17:00 Social No alcohol and No tobacco Exam alert, oriented x 3, clear to auscultation bilaterally and regular rate & rhythm Airway Submandibular: within normal limits Cervical ROM: within normal limits Mallampati: Class II Dentition: false History/ROS No significant history except as noted and No significant complaints Pulmonary Asthma, Chronic Obstructive Pulmonary Disease, Exertional Dyspnea and Sleep Apnea CV/HEM Arrythmia, Coronary Artery Disease and Hypertension Urinary Tract Infection Hepatic None reported GI Gastroesophageal Reflux Disease Metabolic Morbid Obesity Musc/skel Lower Back Pain and Osteoarthritis/DJD Neuropsych Anxiety, Depression and Neuropathy Anesthetic Plan ASA status: 3 Anesthesia: Anesthesia Evaluation, General and MAC Risk of > 500 ml blood loss (7ml/kg in children): No Medications/Allergies Home Medications Medication Instructions Recorded Confirmed Last Taken Type albuterol sulfate 90 mcg/actuation 1 - 2 puff inhalation Q4H PRN 02/23/21 11/25/22 11/26/22 History aerosol inhaler Shortness Of Breath aspirin 81 mg chewable tablet 81 mg PO QAM 02/23/21 11/25/22 11/25/22 History budesonide-formoterol HFA 160 2 puff inhalation Q12H 03/27/21 11/25/22 11/26/22 History mcg-4.5 mcg/actuation aerosol inhaler (Symbicort) ipratropium 0.5 mg-albuterol 3 mg 3 ml inhalation DAILY PRN 03/27/21 11/25/22 11/26/22 History (2.5 mg base)/3 mL nebulization Shortness Of Breath soln polyethylene glycol 3350 17 17 g PO DAILY PRN Constipation 03/27/21 11/25/22 11/25/22 History gram/dose oral powder (Miralax) night splint to left #1 ea 08/20/21 11/12/22 07/09/22 Rx chlorthalidone 50 mg tablet 50 mg PO QAM 01/30/22 11/25/22 11/26/22 History gabapentin 100 mg capsule 100 mg PO TID PRN Pain 01/30/22 11/25/22 11/26/22 History hydroxychloroquine 200 mg tablet 200 mg PO BID 01/30/22 11/25/22 11/26/22 History losartan 100 mg tablet 100 mg PO QAM 01/30/22 11/25/22 11/26/22 History montelukast 10 mg tablet 10 mg PO DAILY 01/30/22 11/25/22 11/26/22 History diclofenac sodium 1 % topical gel 4 g topical QID PRN Pain #100 grams 05/16/22 11/25/22 11/26/22 Rx (Voltaren Arthritis Pain) pantoprazole 40 mg tablet,delayed 40 mg PO BID 6 weeks #84 tabs 08/02/22 11/25/22 11/26/22 Rx release (Protonix) amlodipine 10 mg tablet 10 mg PO BEDTIME 08/15/22 11/25/22 11/26/22 History Night Splint #1 ea 08/21/22 11/12/22 Unknown Rx naproxen 500 mg tablet (Naprosyn) 500 mg PO BID PRN pain #20 tabs 08/22/22 11/25/22 11/26/22 Rx cyclobenzaprine 10 mg tablet 10 mg PO TID PRN muscle spasm #14 09/04/22 11/25/22 11/26/22 Rx tabs Night Splint #1 ea 09/17/22 11/12/22 Unknown Rx hydralazine 50 mg tablet 50 mg PO TID #270 tabs 09/17/22 11/25/22 11/26/22 Rx metoprolol tartrate 50 mg tablet 50 mg PO BID #180 tabs 09/17/22 11/25/22 Rx Cam Boot to the left #1 ea 09/30/22 11/12/22 Unknown Rx nitroglycerin 0.6 mg/hr See Rx Instructions .Route 10/03/22 11/25/22 11/26/22 Rx transdermal 24 hour patch .COMPLEX #30 patches clonazepam 0.5 mg tablet 0.5 mg PO BID PRN anxiety/panic 10/08/22 11/25/22 11/26/22 Rx #60 tabs fluoxetine 40 mg capsule 80 mg PO QAM #60 caps 10/08/22 11/25/22 11/26/22 Rx diazepam 5 mg tablet (Valium) 5 mg PO ONCE PRN anxiety 1 day #2 10/23/22 11/25/22 11/26/22 Rx tabs docusate sodium 100 mg capsule 100 mg PO BID PRN stool softener 11/04/22 11/25/22 11/26/22 History (Colace) isosorbide mononitrate 60 mg 60 mg PO DAILY 11/04/22 11/25/22 11/26/22 History tablet,extended release 24 hr nitroglycerin 0.4 mg sublingual 0.4 mg sublingual Q5M PRN Chest 11/04/22 11/25/22 11/23/22 History tablet (Nitrostat) Pain prazosin 5 mg capsule (Minipress) 10 mg PO BEDTIME 11/04/22 11/25/22 11/26/22 History promethazine 25 mg tablet 25 mg PO Q6H PRN nausea and 11/04/22 11/25/22 11/26/22 Rx vomiting #20 tabs quetiapine 200 mg tablet,extended 200 mg PO BEDTIME 11/04/22 11/25/22 11/26/22 History release 24 hr sucralfate 1 gram tablet (Carafate) 1 g PO Q6H PRN stomach upset 4 11/04/22 11/25/22 11/26/22 Rx weeks #112 tabs trazodone 150 mg tablet 150 mg PO BEDTIME 11/04/22 11/25/22 11/26/22 History dicyclomine 20 mg tablet 20 mg PO QID #120 tabs 11/12/22 11/25/22 11/26/22 Rx Allergies Allergy/AdvReac Type Severity Reaction Status Date / Time No Known Allergies Allergy Verified 11/27/22 06:00 ON LICENSE OF [facility] Anesthesia Medical History Abnormal reflex COPD (chronic obstructive pulmonary disease) GERD (gastroesophageal reflux disease) Helicobacter pylori gastritis HTN (hypertension) Neck pain Psychiatric care Psychiatric care Kimberly patel Surgical History History of cholecystectomy History of esophagogastroduodenoscopy Hx of section Hx of colonoscopy 2020 [facility] Hx of hysterectomy Family History Family/Other Cancer Diabetes Father Diabetes Hyperlipidemia Hypertension Stroke Mother Hypertension Stroke CAD (coronary artery disease) Rheumatoid arthritis Other Major depressive disorder, recurrent severe without psychotic features Panic disorder [episodic paroxysmal anxiety] Post-traumatic stress disorder, chronic Social History Smoking and tobacco status: never smoked Second hand smoke exposure: Yes Alcohol intake: never History of recent travel: No Data Anesthesia Cardiac Studies: Echocardiogram 10/16/22
[2022-11-27 07:13] VITALS: BP 159/107; PULSE 85; RESP 16; TEMP 36.2; O2SAT 92
[2022-11-27 07:18] VITALS: BP 147/82; PULSE 86; RESP 18; O2SAT 97
--- NOTE | 2022-11-27 07:20 | PC.NURSE ---
patient awake, asked for tongue ring, pt replaced tongue ring.
[2022-11-27 07:28] VITALS: BP 153/98; PULSE 82; RESP 18; O2SAT 97
--- NOTE | 2022-11-27 13:38 | ANE.PACU2 ---
Inpatient post-anesthesia follow up: Airway intact: Yes Vital signs: Temperature 97.1 F Pulse Rate 82 Respiratory Rate 18 Blood Pressure 153/98 Pulse Oximetry 97 Oxygen Delivery Me thod Room Air Oxygen Flow Rate Fraction of Inspir ed Oxygen Hydration adequate: Yes Nausea and vomiting: No Pain level: 1 Mental status: Baseline
== END 2022-11-27 08:08 | disposition home or self-care (01) ==
PROVIDERS: PCP Family Medicine; Visit Provider Surgery
DX: K21.9 Gastro-esophageal reflux disease without esophagitis (principal); R13.10 Dysphagia, unspecified; K22.10 Ulcer of esophagus without bleeding; K29.50 Unspecified chronic gastritis without bleeding; K20.90 Esophagitis, unspecified without bleeding; J44.9 Chronic obstructive pulmonary disease, unspecified; G47.30 Sleep apnea, unspecified; I25.10 Atherosclerotic heart disease of native coronary artery without angina pectoris; I10 Essential (primary) hypertension; E66.01 Morbid (severe) obesity due to excess calories; Z68.41 Body mass index [BMI] 40.0-44.9, adult; Z79.82 Long term (current) use of aspirin
CPT/HCPCS: 43239; 88305; 88342; J2704; J3535; J7030

== ENCOUNTER 2022-12-02 19:25 | Emergency (ER) | payer MEDICAID, SELFPAY ==
--- NOTE | 2022-12-02 19:30 | XRR_ITS ---
PROCEDURE INFORMATION: Exam: XR Chest Exam date and time: 12/02/2022 7:47 PM Age: 51 years old Clinical indication: Chest wall pain; Additional info: Cp TECHNIQUE: Imaging protocol: Radiologic exam of the chest. Views: 1 view. COMPARISON: CR (CHEST, ) 10/20/2022 8:56 PM FINDINGS: Lungs: Unremarkable. No consolidation. Pleural spaces: Unremarkable. No pleural effusion. No pneumothorax. Heart/Mediastinum: Unremarkable. No cardiomegaly. Bones/joints: No acute findings. XR/XR chest 1V portable [id number] IMPRESSION: No acute findings.
[2022-12-02 19:36] VITALS: BMI 42.0
[2022-12-02 19:39] VITALS: BP 170/96; PULSE 77; RESP 16; TEMP 36.4; O2SAT 96
--- NOTE | 2022-12-02 19:45 | ECG_ITS ---
[facility] Test Date: 2022-12-02 Pat Name: Nani Pryor Department: Room: Gender: Female Rn Integrity: : 1970 Requested By: Leon Moura Order Number: [id number] Jaclyn MD: Valente Orozco M.D. Measurements Intervals [place] Rate: 79 P: 60 [place]: 172 QRS: 62 QRSD: 81 T: 14 QT: 403 QTc: 462 Interpretive Statements SINUS RHYTHM NONSPECIFIC T-WAVE ABNORMALITY Compared to ECG 11/04/2022 09:10:01 T-wave abnormality now present Electronically Signed On 12-03-2022 7:44:02 [employer] by Valente Orozco M.D. [email or web address] coast [email or web address] health care systemPGP TrustCenterour [facility]/store/Ov/[id number]
--- NOTE | 2022-12-02 19:56 | PC.NURSE ---
Pt states that she has had continuous chest pain since 1630 today. Pt states that she took 3 nitroglycerin before calling EMS and EMS administered 2 en route. Pt reports epigastric pain described to be pressure-like, fatigue, dry cough. Mild bilateral ankle edema noted, non-pitting. Pt does state that she has been diagnosed with esophageal ulcers and is on liquid diet. Pt resting in bed.
[2022-12-02 19:59] LABS: Basophils % 0.6 %; Eosinophils # 0.1 10^3/uL (0.0-0.8); Eosinophils % 1.4 %; Hemoglobin 12.5 g/dL (11.5-15.3); Lymphocytes % 30.2 %; Mean Corpuscular HGB Conc 31.3 g/dL (30.0-36.0); Mean Corpuscular Hemoglobin 27.2 pg (28.0-34.0); Mean Platelet Volume 10.7 fL (7.4-10.4); Monocytes # 0.5 10^3/uL (0.2-0.9); Monocytes % 7.4 %; Neutrophils # 3.99 10^3/uL (1.8-7.7); Neutrophils % 59.9 %; Nucleated Red Blood Cells % 0 %; Platelet Count 350 10^3/cmm (130-400); Red Cell Distribution Width 14.4 % (12.1-15.1); White Blood Count 6.7 10^3/uL (4.0-10.0)
--- NOTE | 2022-12-02 20:04 | CTR_ITS ---
PROCEDURE INFORMATION: Exam: CT Head Without Contrast Exam date and time: 12/02/2022 8:20 PM Age: 51 years old Clinical indication: Pain; Headache; Patient HX: C/O COLLINS with hypertension. History of migraine. ; Additional info: Headache, hypertensive TECHNIQUE: Imaging protocol: Computed tomography of the head without contrast. Radiation optimization: All CT scans at this facility use at least one of these dose optimization techniques: automated exposure control; mA and/or kV adjustment per patient size (includes targeted exams where dose is matched to clinical indication); or iterative reconstruction. Other protocol: This patient has received 6 known CTs and 0 known cardiac nuclear medicine studies in the 12 months prior to the current study. COMPARISON: MR head wo/w con [id number] 06/07/2021 9:10 AM RADIATION DOSE METRICS: Total DLP (mGy-cm): 1113.88 FINDINGS: Brain: Normal. No hemorrhage. Unremarkable white matter. No mass effect. Cerebral ventricles: No ventriculomegaly. Paranasal sinuses: Visualized sinuses are unremarkable. No fluid levels. Mastoid air cells: Visualized mastoid air cells are well aerated. Bones/joints: No acute findings. Soft tissues: Unremarkable. CT/CT head wo con* [id number] IMPRESSION: No acute intracranial abnormality.
[2022-12-02] MEDS: morphine 4 mg/mL SDV 1 mL 2 MG IVP (20:09)
[2022-12-02 20:12] VITALS: BP 143/88; PULSE 82; RESP 18; O2SAT 98
--- NOTE | 2022-12-02 20:15 | W.ED.CHESTPA ---
HPI - Chest Pain General: Chief Complaint: Chest Pain Stated Complaint: CP Time Seen by Provider: 12/02/22 19:40 Source: patient and EMS Mode of arrival: EMS Limitations: no limitations History of Present Illness: See nursing assessment. Patient reportedly had high blood pressure at home and chest pressure with left arm pain radiating down from her neck causes of tingling her left arm. She states chest pain started while at work about 2 hours prior to arrival. She states she has bad headache as well. Blood pressure on arrival was 170/96. Patient be given medications by EMS that included 3 and 24 mg of aspirin, 2 nitroglycerin tablets, 4 Zofran IV. Patient states she does have a history of poorly controlled hypertension and is on 4 different medications for blood pressure control. She states she said history of esophageal ulcers as well. She denies any peptic ulcer disease. She denies any previous coronary stents. She does drink caffeine. She denies tobacco or alcohol use. She denies allergies to medications. Denies any neurological changes. Denies any change in speech or vision. She denies any weakness. She is able to move her left upper extremity without any difficulty. She claims her chest pain was substernal and left-sided. It chest pain did not radiate. Associated symptoms: Deny abdominal pain, dyspnea, fever(s), nausea, palpitations or vomiting Review of Systems Const: Denies: fever(s) or chills Eyes: Denies: change in vision ENMT: Denies: throat pain Card: Reports: chest pain; Denies: palpitations, irregular heart rhythm, edema or lightheadedness Resp: Denies: dyspnea or wheezing GI: Denies: abdominal pain, nausea or vomiting : Denies: flank pain Musc: Denies: neck pain or back pain Skin/Breast: Denies: rash or pruritus Neuro: Reports: headache(s) and other (Paresthesias in the left hand.); Denies: numbness in extremities or weakness in extremities Psych: Denies: anxiety Rui/Lymph: Denies: enlarged lymph nodes PFSH ED PFSH: Medical History Abnormal reflex COPD (chronic obstructive pulmonary disease) GERD (gastroesophageal reflux disease) Helicobacter pylori gastritis HTN (hypertension) Neck pain Psychiatric care Psychiatric care Jem'sandro ring Surgical History History of cholecystectomy History of esophagogastroduodenoscopy Hx of section Hx of colonoscopy 2020 [facility] Hx of hysterectomy Family History Family/Other Cancer Diabetes Father Diabetes Hyperlipidemia Hypertension Stroke Mother Hypertension Stroke CAD (coronary artery disease) Rheumatoid arthritis Other Major depressive disorder, recurrent severe without psychotic features Panic disorder [episodic paroxysmal anxiety] Post-traumatic stress disorder, chronic Social History Smoking and tobacco status: never smoked Second hand smoke exposure: Yes Alcohol intake: never History of recent travel: No Physical Exam Const: COMMON NORMALS: no acute distress, patient oriented x3, no limitations and well nourished GENERAL APPEARANCE: cooperative HENMT: COMMON NORMALS: normocephalic and atraumatic HEAD & SCALP: normocephalic and atraumatic FACE & SINUS: normal facial exam Eye: COMMON NORMALS: EOMs intact bilaterally Neck/C-Spine: COMMON NORMALS: full ROM, no lymphadenopathy, supple and no meningeal signs GENERAL: Yes normal visual inspection Lymph: LYMPHATIC: no lymphadenopathy noted Chest: COMMONS NORMALS: normal inspection of the chest and normal palpation of entire chest wall CHEST: No Ecchymosis present and No rash Resp: COMMON NORMALS: normal respiratory effort, No retractions and clear to auscultation bilaterally EFFORT & INSPECTION: No respiratory distress AUSCULTATION: clear to auscultation bilaterally Cardio: COMMON NORMALS: regular rate, regular rhythm and Peripheral pulses 2+ throughout JUGULAR VENOUS DISTENTION: no JVD RATE: regular rate RHYTHM: regular rhythm PERIPHERAL PULSES: Peripheral pulses 2+ throughout GI: COMMON NORMALS: Normal to inspection, nondistended, normoactive bowel sounds present and non-tender : COMMON NORMALS: Yes no CVA tenderness BLADDER/KIDNEY EXAM: Yes no CVA tenderness Back/Pelvis: COMMON NORMALS: no CVA tenderness Extremity: COMMON NORMALS: normal to inspection, full ROM and capillary refill normal Neuro: COMMON NORMALS: patient oriented x3, CN's II-XII intact bilaterally, no focal motor deficits and no sensory deficits noted MENINGEAL SIGNS: Yes no meningeal signs Psych: COMMON NORMALS: mental status grossly normal and Normal thought process present THOUGHT PROCESS: Normal thought process present Skin: COMMON NORMALS: no rashes or lesions noted and no wounds GENERAL SKIN EXAM: no rashes or lesions noted Course Vital Signs: Vital signs: Vital Signs Temperature 97.4 F L 12/02/22 20:52 Pulse Rate 79 12/02/22 20:52 Respiratory Rate 16 12/02/22 20:52 Blood Pressure 138/89 12/02/22 20:52 Pulse Oximetry 98 12/02/22 20:52 Oxygen Delivery Me thod 12/02/22 20:52 MDM - Chest Pain Medical Decision Making Labetalol canceled after repeat blood pressure showed blood pressure 143/88. Heart rate 82. Symptoms likely due to her hypertension. Once her hypertension resolved, symptoms abated. She still has mild headache. CT scan was normal. We will give Toradol 15 mg IV. She has naproxen at home. Lab Data 12/02/22 19:14 12/02/22 19:14 Radiology Impressions Chest X-Ray 12/02/22 19:30 IMPRESSION: No acute findings. Head CT 12/02/22 20:04 IMPRESSION: No acute intracranial abnormality. Laboratory Results WBC 6.7 10^3/uL (4.0-10.0) 12/02/22 19:14 RBC 4.60 10^6/uL (4.1-5.3) 12/02/22 19:14 Hgb 12.5 g/dL (11.5-15.3) 12/02/22 19:14 Hct 40.0 % (37.0-47.0) 12/02/22 19:14 MCV 87.0 fl (81-99) 12/02/22 19:14 MCH 27.2 pg (28.0-34.0) L 12/02/22 19:14 MCHC 31.3 g/dL (30.0-36.0) 12/02/22 19:14 RDW 14.4 % (12.1-15.1) 12/02/22 19:14 Plt Count 350 10^3/cmm (130-400) 12/02/22 19:14 MPV 10.7 fL (7.4-10.4) H 12/02/22 19:14 Neut % (Auto) 59.9 % 12/02/22 19:14 Lymph % (Auto) 30.2 % 12/02/22 19:14 Fleming % (Auto) 7.4 % 12/02/22 19:14 Eos % (Auto) 1.4 % 12/02/22 19:14 Baso % (Auto) 0.6 % 12/02/22 19:14 Neut # (Auto) 3.99 10^3/uL (1.8-7.7) 12/02/22 19:14 Lymph # (Auto) 2.0 10^3/uL (0.8-4.8) 12/02/22 19:14 Fleming # (Auto) 0.5 10^3/uL (0.2-0.9) 12/02/22 19:14 Eos # (Auto) 0.1 10^3/uL (0.0-0.8) 12/02/22 19:14 Baso # (Auto) 0.0 10^3/uL (0.0-0.1) 12/02/22 19:14 Nucleated RBC % (auto) 0 % 12/02/22 19:14 Nucleated RBCs # 0.0 /100WBC 12/02/22 19:14 Sodium 138 mmol/L (136-145) 12/02/22 19:14 Potassium 4.1 mmol/L (3.5-5.1) 12/02/22 19:14 Chloride 97 mmol/L (98-107) L 12/02/22 19:14 Carbon Dioxide 30 mmol/L (22-29) H 12/02/22 19:14 Anion Gap 15.1 (5-19) 12/02/22 19:14 BUN 12 mg/dL (6-20) 12/02/22 19:14 Creatinine 1.0 mg/dL (0.5-0.9) H 12/02/22 19:14 GFR Calculation 58.7 mL/min (90-130) L 12/02/22 19:14 Glucose 87 mg/dL (65-115) 12/02/22 19:14 Calculated Osmolality 285 mOsm/kg (285-295) 12/02/22 19:14 Calcium 9.8 mg/dL (8.5-10.5) 12/02/22 19:14 Troponin T Baseline 8 ng/L (0-10) 12/02/22 19:14 Troponin T 120 Minute 8.29 ng/L (0-10) 12/02/22 20:59 Delta Troponin T 0.29 ABS# (0-10) 12/02/22 20:59 Imaging Data CXR: Radiologist's impression: PROCEDURE INFORMATION: Exam: XR Chest Exam date and time: 12/02/2022 7:47 PM Age: 51 years old Clinical indication: Chest wall pain; Additional info: Cp TECHNIQUE: Imaging protocol: Radiologic exam of the chest. Views: 1 view. COMPARISON: CR (CHEST, ) 10/20/2022 8:56 PM FINDINGS: Lungs: Unremarkable. No consolidation. Pleural spaces: Unremarkable. No pleural effusion. No pneumothorax. Heart/Mediastinum: Unremarkable. No cardiomegaly. Bones/joints: No acute findings. XR/XR chest 1V portable [id number] IMPRESSION: No acute findings. ? Dictated By: Kade Beltran MD Signed By: Kade Beltran MD Signed Date/Time: 12/02/222028 CT Head: Radiologist's impression: PROCEDURE INFORMATION: Exam: CT Head Without Contrast Exam date and time: 12/02/2022 8:20 PM Age: 51 years old Clinical indication: Pain; Headache; Patient HX: C/O COLLINS with hypertension. History of migraine. ; Additional info: Headache, hypertensive TECHNIQUE: Imaging protocol: Computed tomography of the head without contrast. Radiation optimization: All CT scans at this facility use at least one of these dose optimization techniques: automated exposure control; mA and/or kV adjustment per patient size (includes targeted exams where dose is matched to clinical indication); or iterative reconstruction. Other protocol: This patient has received 6 known CTs and 0 known cardiac nuclear medicine studies in the 12 months prior to the current study. COMPARISON: MR head wo/w con [id number] 06/07/2021 9:10 AM RADIATION DOSE METRICS: Total DLP (mGy-cm): 1113.88 FINDINGS: Brain: Normal. No hemorrhage. Unremarkable white matter. No mass effect. Cerebral ventricles: No ventriculomegaly. Paranasal sinuses: Visualized sinuses are unremarkable. No fluid levels. Mastoid air cells: Visualized mastoid air cells are well aerated. Bones/joints: No acute findings. Soft tissues: Unremarkable. CT/CT head wo con* [id number] IMPRESSION: No acute intracranial abnormality. ? Dictated By: Kade Beltran MD Signed By: Kade Beltran MD Signed Date/Time: 12/02/222032 EKG Data EKG 1: I personally reviewed and interpreted this EKG as follows: EKG interpretation date: 12/02/22 EKG interpretation time: 19:46 Interpretation: Normal sinus rhythm. Heart rate 79. Normal axis. Normal P waves, normal T waves, normal AR interval, normal QT interval, normal ST segments. Normal EKG. Discharge Plan Discharge Patient Disposition: Home Clinical Impression: Atypical chest pain HTN (hypertension) Qualifiers: Hypertension type: primary hypertension Qualified Code(s): I10 - Essential (primary) hypertension Headache Qualifiers: Headache type: unspecified Headache chronicity pattern: acute headache Intractability: not intractable Qualified Code(s): R51.9 - Headache, unspecified Condition: Stable Prescriptions: No Action (DME) night splint to left See Rx Instructions .Route .MEDSUPPLY Qty: 1 0RF Rx Instructions: As directed pantoprazole [Protonix] 40 mg tablet,delayed release (DR/EC) 40 mg PO BID 42 Days Qty: 84 0RF (DME) Cam Boot to the left See Rx Instructions .Route .MEDSUPPLY Qty: 1 0RF Rx Instructions: As directed metoprolol tartrate 50 mg tablet 50 mg PO BID Qty: 180 3RF hydralazine 50 mg tablet 50 mg PO TID Qty: 270 3RF amlodipine 10 mg tablet 10 mg PO BEDTIME dicyclomine 20 mg tablet 20 mg PO QID Qty: 120 1RF diclofenac sodium [Voltaren Arthritis Pain] 1 % gel 4 g topical QID PRN (Reason: Pain) Qty: 100 0RF Rx Instructions: apply to single knee, ankle, foot; for foot includes sole/toes/top of foot (DME) Night Splint See Rx Instructions .Route .MEDSUPPLY Qty: 1 0RF Rx Instructions: As directed by HOME (DME) Night Splint See Rx Instructions .Route .MEDSUPPLY Qty: 1 0RF Rx Instructions: As directed nitroglycerin 0.6 mg/hr patch 24 hour See Rx Instructions .ROUTE .COMPLEX Qty: 30 1RF Dose Instruction: APPLY 1 PATCH NEEDED FOR PLANTAR FASCIA PAIN, ALLOW NITRATE FREE INTERVAL OF 10-12HRS/24HR PERIOD Rx Instructions: APPLY 1 PATCH NEEDED FOR PLANTAR FASCIA PAIN, ALLOW NITRATE FREE INTERVAL OF 10-12HRS/24HR PERIOD fluoxetine 40 mg capsule 80 mg PO QAM Qty: 60 0RF clonazepam 0.5 mg tablet 0.5 mg PO BID PRN (Reason: anxiety/panic) Qty: 60 0RF diazepam [Valium] 5 mg tablet 5 mg PO ONCE PRN (Reason: anxiety) 1 Days Qty: 2 0RF albuterol sulfate 90 mcg/actuation Hfa Aerosol Inhaler 1 - 2 puff INHALATION Q4H PRN (Reason: Shortness Of Breath) aspirin 81 mg Tablet,Chewable 81 mg PO QAM ipratropium-albuterol 0.5 mg-3 mg(2.5 mg base)/3 mL solution for nebulization 3 ml INHALATION DAILY PRN (Reason: Shortness Of Breath) polyethylene glycol 3350 [Miralax] 17 gram/dose powder 17 g PO DAILY PRN (Reason: Constipation) budesonide-formoterol [Symbicort] 160-4.5 mcg/actuation Hfa Aerosol Inhaler 2 puff INHALATION Q12H chlorthalidone 50 mg tablet 50 mg PO QAM losartan 100 mg tablet 100 mg PO QAM montelukast 10 mg tablet 10 mg PO DAILY gabapentin 100 mg capsule 100 mg PO TID PRN (Reason: Pain) hydroxychloroquine 200 mg tablet 200 mg PO BID cyclobenzaprine 10 mg tablet 10 mg PO TID PRN (Reason: muscle spasm) Qty: 14 0RF isosorbide mononitrate 60 mg tablet extended release 24 hr 60 mg PO DAILY nitroglycerin [Nitrostat] 0.4 mg Tablet, Sublingual 0.4 mg SUBLINGUAL Q5M PRN (Reason: Chest Pain) Rx Instructions: do not exceed 3 doses per episode prazosin [Minipress] 5 mg capsule 10 mg PO BEDTIME trazodone 150 mg tablet 150 mg PO BEDTIME quetiapine 200 mg tablet extended release 24 hr 200 mg PO BEDTIME docusate sodium [Colace] 100 mg capsule 100 mg PO BID PRN (Reason: stool softener) promethazine 25 mg tablet 25 mg PO Q6H PRN (Reason: nausea and vomiting) Qty: 20 0RF Discharge Orders: Discharge ED (Routine); Ordered 12/02/22 Ordered By: Otto Rosales Referrals: Alpesh Garcia MD [Primary Care Provider] - 1-3 days (For recheck and evaluation of your blood pressure.) Discharge Diet: Low Salt and Low Fat Discharge Activity: Increase activity as tolerated Patient Instructions: Chest Pain (ED), Acute Headache (ED), Chronic Hypertension (ED), DASH Eating Plan (ED) Activity Restrictions/Additional Instructions: Follow-up with your family doctor this week for recheck of her blood pressure. Avoid salt and caffeine. Take medications as prescribed at home. May take naproxen up to 500 mg twice a day as needed for pain or headache. 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
[2022-12-02 20:32] LABS: Anion Gap 15.1 (5-19); Blood Urea Nitrogen 12 mg/dL (6-20); Calcium 9.8 mg/dL (8.5-10.5); Carbon Dioxide 30 mmol/L (22-29); Chloride 97 mmol/L (98-107); Glomerular Filtration Rate 58.7 mL/min (90-130); Glucose 87 mg/dL (65-115); Osmolality Calculated 285 mOsm/kg (285-295); Potassium 4.1 mmol/L (3.5-5.1); Sodium 138 mmol/L (136-145)
[2022-12-02 20:39] LABS: Creatinine Clr Calc Pharmacy 82.1015
[2022-12-02 20:52] VITALS: BP 138/89; PULSE 79; RESP 16; TEMP 36.3; O2SAT 98
[2022-12-02 20:52] LABS: Troponin(5th) Baseline 8 ng/L (0-10)
[2022-12-02 21:22] LABS: Troponin 5 2HR 8.29 ng/L (0-10)
--- NOTE | 2022-12-02 21:30 | ECG_ITS ---
[facility] Test Date: 2022-12-02 Pat Name: Nani Pryor Department: Room: Gender: Female Manager Harbor: : 1970 Requested By: Leon Moura Order Number: [id number] Jaclyn MD: Valente Orozco M.D. Measurements Intervals Pratt Rate: 77 P: 50 ID: [id number] QRS: 59 QRSD: 88 T: 8 QT: 401 QTc: 454 Interpretive Statements SINUS RHYTHM NONSPECIFIC T-WAVE ABNORMALITY Compared to ECG 11/04/2022 09:10:01 T-wave abnormality now present Electronically Signed On 12-03-2022 7:46:13 HEAD BATCHER by Valente Orozco M.D. [id number]
[2022-12-02 21:44] LABS: Troponin 5 2HR Delta 0.29 ABS# (0-10)
[2022-12-02 22:05] VITALS: BP 167/110; PULSE 80; RESP 16; O2SAT 95
[2022-12-02] MEDS: ketorolac 30 mg/mL INJ 15 MG IVP (22:07)
[2022-12-02] MEDS: labetalol 5 mg/mL SDV 20mL IVP (22:08)
[2022-12-02 22:19] VITALS: BP 125/96; PULSE 78; RESP 16; O2SAT 96
== END 2022-12-02 22:32 | disposition home or self-care (01) ==
PROVIDERS: Emergency Medicine; Emergency Provider Family Medicine; PCP Family Medicine
DX: R07.89 Other chest pain (principal); I10 Essential (primary) hypertension; R51.9 Headache, unspecified; Z79.82 Long term (current) use of aspirin; J44.9 Chronic obstructive pulmonary disease, unspecified; Z77.22 Contact with and (suspected) exposure to environmental tobacco smoke (acute) (chronic)
CPT/HCPCS: 36415; 70450; 71045; 80048; 84484; 85025; 93005; 96374; 96375; 99285; J1885; J2270; J3490

== ENCOUNTER → 2022-12-04 08:14 | Outpatient (BNVA) | payer MEDICAID, SELFPAY | PROVIDERS: PCP Family Medicine; Visit Provider Specialist | DX: G43.711 Chronic migraine without aura, intractable, with status migrainosus (principal); F43.12 Post-traumatic stress disorder, chronic; M79.7 Fibromyalgia | CPT/HCPCS: 99215 ==

== ENCOUNTER 2022-12-05 08:39 | Outpatient (CLI) | payer MEDICAID, SELFPAY ==
[2022-12-05 09:04] VITALS: BMI 41.5
--- NOTE | 2022-12-05 09:04 | ECG_ITS ---
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 Interpretive Statements NAME OF STUDY: LEXISCAN SESTAMIBI STRESS TEST INDICATION: [CP, Palpitations, Dyspnea, ] Procedure: At the baseline, the blood pressure was 164/113 mmHg with a heart rate of 75 bpm. The electrocardiogram showed normal sinus rhythm, normal axis with normal ST and T's. The Lexiscan was infused over a period of 20 seconds. A total of 0.4 mg of Lexiscan was infused. The stress phase was continued for a total of 5 minutes. Heart rate was at the end of stress phase was 94 bpm and a blood pressure of 175/107 mmHg. The EKG at the peak infusion revealed normal sinus rhythm with no significant ST-T wave changes. Sestamibi was injected 20 seconds after the Lexiscan infusion. Blood pressure at the end of recovery phase was 186/98 mmHg with a heart rate of 92 bpm. Conclusion: 1. Normal EKG response to Lexiscan infusion 2. No Lexiscan induced chest pain or cardiac arrhythmia. 3. Normal blood pressure and heart rate response. 4. Sestamibi/sestamibi perfusion scan pending; see separate report. Electronically Signed On 12-14-2022 23:08:05 CONTROLLER [employer]AL [employer]RE by Valente Orozco M.D. [email or web address]
--- NOTE | 2022-12-05 09:05 | NMCV_ITS ---
NM rosa perf SPECT r/s* [id number] Nani Pryor Age: 51 Gender: F : 1970 Exam Date: 12/05/2022 09:05 Ordering Phys: Valente Orozco M.D ([email or web address]) Technologist: ROSELYN Hayes Exam Location: [facility] Indications: CHEST PAIN STRESS TEST [facility] IMAGE PROTOCOL Rest/Stress 1 Lexiscan Day Radiopharmaceutical Dose (mCi) Administration Site Administered by Rest: Tc-99m 10.7 IV ROSELYN Severino Sestamibi Stress:Tc-99m 32.9 IV ROSELYN Hayes Sestamijamarcus Rest: 05-Dec-2022 60 Discovery 630 Stress: 05-Dec-2022 30 Discovery 630 0.4mg Lexiscan. Images obtained in supine and prone position. SPECT RESULTS Technical Quality: Excellent Raw Data Analysis: Normal Image Corrections: No attenuation or motion correction applied Summed Stress Score: 0 Summed Rest Score: 7 Summed Difference Score: 0 PERFUSION FINDINGS SPECT images demonstrate homogeneous tracer distribution throughout the myocardium. FUNCTIONAL RESULTS (calculated via Gated SPECT) Stress Image LV EF (%): 73 Stress EDV (mL):113 TID: 0.93 Stress ESV (mL):30 FUNCTIONAL FINDINGS: There is normal left ventricular systolic function. IMPRESSIONS 1. Normal myocardial perfusion imaging with no evidence of ischemia 2. LV systolic function is normal. Valente Orozco MD (Electronically Signed) Final Date: 10 December 2022 11:29 S
[2022-12-05] MEDS: regadenoson 0.4 Mg/5 ml Syringe IVP (10:47)
[2022-12-05] MEDS: aminophylline 25 mg/mL SDV 10 mL IVP ×2 (10:56→11:05)
[2022-12-05] MEDS: hyDRALAzine 20 mg/mL INJ 1 mL 10 MG IVP (11:10)
[2022-12-05 11:33] VITALS: BP 186/98; PULSE 92
--- NOTE | 2022-12-05 11:43 | PC.NURSE ---
Hypertension Pt hypertensive before and after lexiscan. 4 minutes into recovery phase BP still remains 167/113. Home blood pressure medications reviewed with patient and reports she has taken all her BP medications this am. Also reports her BP has been high for sometime, reports multiple visits to ER room. Dr. Orozco on site and received verbal orders for 10mg IV hydralizine, discharge when BP is <150 systolic. See Mar for medication admin. At 19 minutes of recovery BP remains elevated 164/104. Dr. Orozco notified and received verbal orders to discharge from CD at this time with instructions for pt to measure BP am and pm X 1 week and to bring log to heart care next week. Dr. Orozco aware of patients chest pain rating 5/10 prior to testing and rating 5/10 after testing. No new orders at this time.
== END 2022-12-05 08:40 | disposition home or self-care (01) ==
LOC: CDL 08:40
PROVIDERS: PCP Family Medicine; Visit Provider Internal Medicine
DX: R07.9 Chest pain, unspecified (principal); R00.2 Palpitations; R06.09 Other forms of dyspnea; R06.02 Shortness of breath
CPT/HCPCS: 36415; 78452; 93017; 96374; 96375; A9500; J0280; J0360; J2785

== ENCOUNTER → 2022-12-10 08:33 | Outpatient (BNVA) | payer MEDICAID, SELFPAY | PROVIDERS: PCP Family Medicine; Visit Provider Surgery | DX: R13.10 Dysphagia, unspecified (principal); K22.10 Ulcer of esophagus without bleeding; K29.70 Gastritis, unspecified, without bleeding | CPT/HCPCS: 99213 ==

== ENCOUNTER 2022-12-19 10:05 | Emergency (ER) | payer MEDICAID, SELFPAY ==
[2022-12-19 10:52] VITALS: BP 182/93; PULSE 86; RESP 16; TEMP 36.7; O2SAT 97
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
--- NOTE | 2022-12-19 14:04 | W.ED.EXTPRO ---
HPI - Extremity Problem General: Chief complaint: Extremity Injury, Upper Stated complaint: neck and left arm pain, hands rash Time Seen by Provider: 12/19/22 13:33 Source: patient Mode of arrival: ambulatory Limitations: no limitations History of Present Illness: Patient is a 52-year-old female who presents to ED today with a complaint of left shoulder pain. Patient states she has had pain ever since a fall back in September. She states she has seen primary care multiple times as well as her orthopedic provider but cannot seem to tell me if anything was ever done to address the shoulder pain. Looking at previous documentation she was seen here in the ED following that fall and did have x-rays of the shoulder performed. Patient states pain has progressively increased and now radiating down her extremity. She has not noticed any swelling to the extremity or color changes. She was reporting some bilateral intermittent upper extremity paresthesias. Thinks maybe she fell a week or two ago and re-injuried it as well as her elbow and wrist as she now has pain to these areas. MD Complaint: joint pain Onset (ago): month(s) Pain Consistency: constant Location: left and upper extremity (shoulder) Radiation: none Relieving factors: nothing Exacerbating factors: range of motion Associated symptoms: Reports no associated symptoms; Deny chest pain, fever(s) or rash Review of Systems Const: Denies: fever(s), chills, body aches, fatigue or malaise Card: Denies: chest pain Resp: Denies: dyspnea GI: Denies: abdominal pain Musc: Reports: neck pain (chronic), back pain (chronic), extremity pain (L UE) and joint pain (L shoulder); Denies: extremity swelling, joint swelling, joint redness or joint warmth Skin/Breast: Denies: rash Neuro: Denies: headache(s), numbness in extremities, weakness in extremities or sensory changes PFS ED PFSH: Medical History Abnormal reflex COPD (chronic obstructive pulmonary disease) GERD (gastroesophageal reflux disease) Helicobacter pylori gastritis HTN (hypertension) Neck pain Psychiatric care Psychiatric care [facility] Surgical History History of cholecystectomy History of esophagogastroduodenoscopy Hx of section Hx of colonoscopy 2020 [facility] Hx of hysterectomy Family History Family/Other Cancer Diabetes Father Diabetes Hyperlipidemia Hypertension Stroke Mother Hypertension Stroke CAD (coronary artery disease) Rheumatoid arthritis Other Major depressive disorder, recurrent severe without psychotic features Panic disorder [episodic paroxysmal anxiety] Post-traumatic stress disorder, chronic Social History Smoking and tobacco status: never smoked Second hand smoke exposure: Yes Alcohol intake: never Physical Exam Const: COMMON NORMALS: no acute distress, patient oriented x3, no limitations and alert NUTRITIONAL APPEARANCE: overweight ORIENTATION/CONSCIOUSNESS: Yes awake, Yes oriented to person, Yes oriented to place and Yes oriented to time Chest: COMMONS NORMALS: normal inspection of the chest and normal palpation of entire chest wall Resp: COMMON NORMALS: normal respiratory effort and clear to auscultation bilaterally AUSCULTATION: clear to auscultation bilaterally Cardio: COMMON NORMALS: regular rate and regular rhythm RATE: regular rate RHYTHM: regular rhythm Back/Pelvis: THORACIC SPINE/UPPER BACK: Yes thoracic spinal tenderness and Yes paraspinal muscle tenderness LUMBAR SPINE/LOWER BACK: Yes lumbar spinal tenderness and Yes paraspinal muscle tenderness Extremity: COMMON NORMALS: capillary refill normal, no joint enlargement and no clubbing, cyanosis or edema GENERAL: Yes normal exam except as noted RIGHT UPPER EXTREMITY: Yes shoulder joint, Yes upper arm, Yes elbow joint, Yes lower arm, Yes wrist and Yes hand & digits OTHER: pain throughout R UE without any obvious clinical findings; no swelling noted; no color/temp changes when compared to L UE; distal radial pulse is normal with brisk cap refill; sensation seems intact; she has limited ROM of shoulder, elbow, and wrist joints stating secondary to discomfort Neuro: LEIGH ANN COMA SCALE: document GCS findings [place] coma scale eye opening: Spontaneous [place] coma scale verbal response: Orientated [place] coma scale motor response: Obey commands [place] coma scale total score: 15 COMMON NORMALS: patient oriented x3, moves all extremities, no focal motor deficits and no sensory deficits noted SENSORIUM/ORIENTATION: Yes alert, Yes oriented to person, Yes oriented to place and Yes oriented to time Skin: COMMON NORMALS: no rashes or lesions noted GENERAL SKIN EXAM: no rashes or lesions noted Course Vital Signs: Vital signs: Vital Signs Temperature 98.0 F 12/19/22 10:52 Pulse Rate 86 12/19/22 10:52 Respiratory Rate 16 12/19/22 10:52 Blood Pressure 182/93 12/19/22 10:52 Pulse Oximetry 97 12/19/22 10:52 Oxygen Delivery Me thod 12/19/22 10:52 MDM - Extremity (Nontraumatic) Medical Decision Making Patient is here for left shoulder pain beginning in back in September following a fall. She thinks maybe she has fallen again as well and complained of elbow and wrist pain as well. XRs are negative. She has an appointment with her orthopedic provider on 12/25 that she can follow-up with. She has no acute or red flag findings on history or physical exam. Lab Data Radiology Impressions Elbow X-Ray 12/19/22 14:03 IMPRESSION: No acute findings. Shoulder X-Ray 12/19/22 14:03 IMPRESSION: No acute findings. Wrist X-Ray 12/19/22 14:03 IMPRESSION: No acute findings. Discharge Plan Discharge Patient Disposition: Home Clinical Impression: Left shoulder pain Qualifiers: Chronicity: acute Qualified Code(s): M25.512 - Pain in left shoulder Condition: Stable Prescriptions: New methocarbamol 500 mg tablet 1,000 mg PO Q8H Qty: 30 0RF diclofenac sodium 50 mg tablet,delayed release (DR/EC) 50 mg PO Q12H PRN (Reason: pain) Qty: 20 0RF Medrol (Miguel) 4 mg tablets,dose pack See Rx Instructions .ROUTE .COMPLEX Qty: 21 0RF Rx Instructions: orally per package directions Discontinued cyclobenzaprine 10 mg tablet 10 mg PO TID PRN (Reason: muscle spasm) Qty: 14 0RF No Action (DME) night splint to left See Rx Instructions .Route .MEDSUPPLY Qty: 1 0RF Rx Instructions: As directed pantoprazole [Protonix] 40 mg tablet,delayed release (DR/EC) 40 mg PO BID 42 Days Qty: 84 0RF (DME) Cam Boot to the left See Rx Instructions .Route .MEDSUPPLY Qty: 1 0RF Rx Instructions: As directed amoxicillin-pot clavulanate 875-125 mg tablet 1 tab PO BID Qty: 28 0RF fluoxetine 40 mg capsule 80 mg PO QAM Qty: 60 1RF trazodone 150 mg tablet 150 mg PO BEDTIME Qty: 30 1RF quetiapine [Seroquel XR] 300 mg tablet extended release 24 hr 300 mg PO .HS Qty: 30 1RF prazosin 5 mg capsule 5 mg PO .HS Qty: 30 1RF metoprolol tartrate 50 mg tablet 50 mg PO BID Qty: 180 3RF hydralazine 50 mg tablet 50 mg PO TID Qty: 270 3RF amlodipine 10 mg tablet 10 mg PO BEDTIME dicyclomine 20 mg tablet 20 mg PO QID Qty: 120 1RF topiramate [Topamax] 100 mg tablet 100 mg PO DAILY 90 Days Qty: 90 3RF Rx Instructions: Take 1 tablet daily diclofenac sodium [Voltaren Arthritis Pain] 1 % gel 4 g topical QID PRN (Reason: Pain) Qty: 100 0RF Rx Instructions: apply to single knee, ankle, foot; for foot includes sole/toes/top of foot (DME) Night Splint See Rx Instructions .Route .MEDSUPPLY Qty: 1 0RF Rx Instructions: As directed by HOME (DME) Night Splint See Rx Instructions .Route .MEDSUPPLY Qty: 1 0RF Rx Instructions: As directed diazepam [Valium] 5 mg tablet 5 mg PO ONCE PRN (Reason: anxiety) 1 Days Qty: 2 0RF nitroglycerin 0.6 mg/hr patch 24 hour See Rx Instructions .ROUTE .COMPLEX Qty: 30 1RF Dose Instruction: APPLY 1 PATCH NEEDED FOR PLANTAR FASCIA PAIN, ALLOW NITRATE FREE INTERVAL OF 10-12HRS/24HR PERIOD Rx Instructions: APPLY 1 PATCH NEEDED FOR PLANTAR FASCIA PAIN, ALLOW NITRATE FREE INTERVAL OF 10-12HRS/24HR PERIOD clonazepam 0.5 mg tablet 0.5 mg PO BID PRN (Reason: anxiety/panic) Qty: 60 0RF albuterol sulfate 90 mcg/actuation Hfa Aerosol Inhaler 1 - 2 puff INHALATION Q4H PRN (Reason: Shortness Of Breath) aspirin 81 mg Tablet,Chewable 81 mg PO QAM ipratropium-albuterol 0.5 mg-3 mg(2.5 mg base)/3 mL solution for nebulization 3 ml INHALATION DAILY PRN (Reason: Shortness Of Breath) polyethylene glycol 3350 [Miralax] 17 gram/dose powder 17 g PO DAILY PRN (Reason: Constipation) budesonide-formoterol [Symbicort] 160-4.5 mcg/actuation Hfa Aerosol Inhaler 2 puff INHALATION Q12H chlorthalidone 50 mg tablet 50 mg PO QAM losartan 100 mg tablet 100 mg PO QAM montelukast 10 mg tablet 10 mg PO DAILY gabapentin 100 mg capsule 100 mg PO TID PRN (Reason: Pain) hydroxychloroquine 200 mg tablet 200 mg PO BID isosorbide mononitrate 60 mg tablet extended release 24 hr 60 mg PO DAILY nitroglycerin [Nitrostat] 0.4 mg Tablet, Sublingual 0.4 mg SUBLINGUAL Q5M PRN (Reason: Chest Pain) Rx Instructions: do not exceed 3 doses per episode docusate sodium [Colace] 100 mg capsule 100 mg PO BID PRN (Reason: stool softener) promethazine 25 mg tablet 25 mg PO Q6H PRN (Reason: nausea and vomiting) Qty: 20 0RF Discharge Orders: Discharge ED (Routine); Ordered 12/19/22 Ordered By: Omaira Adames Referrals: Alpesh Garcia MD [Primary Care Provider] - Patient Instructions: Opioid Safety, Pain Management Activity Restrictions/Additional Instructions: Follow-up with Dr. Call on 12/25 as scheduled. Stand Alone Forms: Work/School Release Coding Level of Care Code ED Emergency Medicine Medical Director for 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
[2022-12-19 15:34] VITALS: BP 132/87; PULSE 85; RESP 16; O2SAT 99
== END 2022-12-19 15:34 | disposition home or self-care (01) ==
PROVIDERS: Emergency Provider Physician Assistant; PCP Family Medicine
DX: M25.512 Pain in left shoulder (principal); Z79.82 Long term (current) use of aspirin; J44.9 Chronic obstructive pulmonary disease, unspecified; I10 Essential (primary) hypertension; Z77.22 Contact with and (suspected) exposure to environmental tobacco smoke (acute) (chronic)
CPT/HCPCS: 73030; 73080; 73110; 99283

== ENCOUNTER → 2022-12-25 07:52 | Outpatient (BNVA) | payer MEDICAID, SELFPAY | PROVIDERS: PCP Family Medicine; Visit Provider Nurse Practitioner Family | DX: M25.512 Pain in left shoulder (principal); M54.12 Radiculopathy, cervical region | CPT/HCPCS: 99214 ==

== ENCOUNTER → 2023-01-02 08:00 | Outpatient (BNVA) | payer MEDICAID, SELFPAY | PROVIDERS: PCP Family Medicine; Visit Provider Orthopaedic Surgery | DX: M54.12 Radiculopathy, cervical region (principal) | CPT/HCPCS: 99214 ==

== ENCOUNTER → 2023-01-06 07:47 | Outpatient (BNVA) | payer MEDICAID, SELFPAY | PROVIDERS: PCP Family Medicine; Visit Provider Podiatrist Foot & Ankle Surgery | DX: M72.2 Plantar fascial fibromatosis (principal); M76.72 Peroneal tendinitis, left leg | CPT/HCPCS: 99214 ==

== ENCOUNTER 2023-01-22 12:24 | Emergency (ER) | payer MEDICAID, SELFPAY ==
[2023-01-22 12:31] VITALS: BMI 42.0
[2023-01-22 12:35] VITALS: BP 176/105; PULSE 94; RESP 18; TEMP 36.6; O2SAT 95
--- NOTE | 2023-01-22 12:59 | XR_ITS ---
WS: [id number] XR chest 2V* [id number] REASON FOR EXAM: cough, bronchitis FINDINGS: The chest is unchanged compared to 12/02/2022. The heart and mediastinum are within normal limits. Calcified granulomatous disease in both hemithoraces. No active pulmonary parenchymal or pleural disease is noted. Mild changes of degenerative spondylosis in the mid and lower thoracic spine. XR/XR chest 2V* [id number] IMPRESSION: No acute chest abnormality.
--- NOTE | 2023-01-22 13:02 | ED_ITS ---
HPI - Allergic Reaction General: Chief complaint: Allergic Reaction Stated complaint: left arm/skin abnormal Time Seen by Provider: 01/22/23 12:38 History of Present Illness: HPI narrative: Presents to the ER with complaints of allergic reaction to TB test on her left forearm. Test was administered 2 days ago. Patient went to her PCP yesterday and he gave her Benadryl. Today she has complained the site is more red raised and very itchy. Patient also states that she has had blood in her urine for the last couple days and has developed a cough last night. Patient has no known exposure to TB, patient does work in a [place]. This TB test was in response to a yearly screening. Patient did say she had a similar reaction but not as bad to the one done last year. MD complaint: allergic reaction Onset (ago): day(s) (2 days ago, it started approximately 30 minutes after a TB test) Exposure: other (TB skin test) Associated symptoms: Reports itching and rash; Deny abdominal pain, nausea or vomiting Severity: moderate Treatment prior to arrival: benadryl (Yesterday) Previous Allergic Reaction History: other (Yes similar reaction but smaller) Review of Systems General: Reports: 10 or more systems reviewed and unremarkable except in HPI and below Const: Denies: fever(s) or chills Eyes: Denies: change in vision ENMT: Denies: throat pain or enlarged tonsils Card: Denies: chest pain, palpitations or irregular heart rhythm Resp: Denies: dyspnea, productive cough or non-productive cough GI: Denies: abdominal pain, nausea, vomiting or diarrhea : Denies: flank pain Musc: Denies: neck pain or back pain Skin/Breast: Reports: rash, pruritus and erythema PFSH ED PFSH: Medical History Abnormal reflex COPD (chronic obstructive pulmonary disease) GERD (gastroesophageal reflux disease) Helicobacter pylori gastritis HTN (hypertension) Neck pain [facility] Surgical History History of cholecystectomy History of esophagogastroduodenoscopy Hx of section Hx of colonoscopy 2020 [facility] Hx of hysterectomy Family History Family/Other Cancer Diabetes Father Diabetes Hyperlipidemia Hypertension Stroke Mother Hypertension Stroke CAD (coronary artery disease) Rheumatoid arthritis Other Major depressive disorder, recurrent severe without psychotic features Panic disorder [episodic paroxysmal anxiety] Post-traumatic stress disorder, chronic Social History Smoking and tobacco status: never smoked Second hand smoke exposure: Yes Alcohol intake: never Physical Exam Const: COMMON NORMALS: no acute distress, average body habitus, patient oriented x3, no limitations, healthy appearing, alert and well nourished HENMT: COMMON NORMALS: normocephalic, atraumatic, hearing grossly normal bilaterally, external ears normal, Normal external nose present and Normal nasal mucous membranes and turbinates present HEAD & SCALP: normocephalic and atraumatic NOSE: Normal external nose present and Normal nasal mucous membranes and turbinates present EXTERNAL EAR: Yes external ears normal Neck/C-Spine: COMMON NORMALS: full ROM, no lymphadenopathy, supple, no meningeal signs, no JVD and Thyroid normal THYROID: Thyroid normal Lymph: LYMPHATIC: no lymphadenopathy noted Chest: COMMONS NORMALS: normal inspection of the chest and normal palpation of entire chest wall Resp: COMMON NORMALS: normal respiratory effort, No retractions, No use of accessory muscles and clear to auscultation bilaterally AUSCULTATION: clear to auscultation bilaterally Cardio: COMMON NORMALS: no JVD, regular rate, regular rhythm, S1 normal heart sound present and S2 normal heart sound present RATE: regular rate RHYTHM: regular rhythm HEART SOUNDS: S1 normal heart sound present and S2 normal heart sound present Extremity: NARRATIVE EXTREMITY EXAM: Approximate 10 cm indurated erythematous area on the left forearm with a central approximate 3 cm more indurated and erythematous area. Neuro: COMMON NORMALS: patient oriented x3 SENSORIUM/ORIENTATION: Yes alert MENINGEAL SIGNS: Yes no meningeal signs Course Vital Signs: Vital signs: Vital Signs Temperature 97.9 F 01/22/23 12:35 Pulse Rate 94 01/22/23 12:35 Respiratory Rate 18 01/22/23 12:35 Blood Pressure 176/105 01/22/23 12:35 Pulse Oximetry 95 01/22/23 12:35 Oxygen Delivery Me thod 01/22/23 12:35 MDM - Allergic Reaction Medical Decision Making Patient presents to the ER with complaints of allergic reaction on her left forearm to a TB test that was done 2 days ago. Patient states this has happened in the past but not this bad. Patient has a large area of swelling and induration with a small area of swelling and induration inside it. The biggest one is approximately 10 cm in diameter. Patient did take some Benadryl yesterday at her PCPs office. Lab work was obtained as well as chest x-ray and UA these were essentially benign except for very mild hematuria. Is felt she probably had an allergic reaction to the TB skin test and she will be treated with Decadron and Pepcid here and to continue Benadryl at home. Patient will be discharged to follow-up with her primary care physician within the next 1 week if needed. Differential Diagnosis Likely allergic reaction and adverse reaction to drug; Unlikely anaphylaxis, angioedema, contact dermatitis, viral enanthem or urticaria Lab Data 01/22/23 13:28 01/22/23 13:28 Radiology Impressions Chest X-Ray 01/22/23 12:59 IMPRESSION: No acute chest abnormality. Laboratory Results WBC 4.4 10^3/uL (4.0-10.0) 01/22/23 13:28 RBC 4.42 10^6/uL (4.1-5.3) 01/22/23 13:28 Hgb 12.2 g/dL (11.5-15.3) 01/22/23 13:28 Hct 39.3 % (37.0-47.0) 01/22/23 13:28 MCV 88.9 fl (81-99) 01/22/23 13:28 MCH 27.6 pg (28.0-34.0) L 01/22/23 13:28 MCHC 31.0 g/dL (30.0-36.0) 01/22/23 13:28 RDW 14.6 % (12.1-15.1) 01/22/23 13:28 Plt Count 279 10^3/cmm (130-400) 01/22/23 13:28 MPV 10.0 fL (7.4-10.4) 01/22/23 13:28 Neut % (Auto) 62.3 % 01/22/23 13:28 Lymph % (Auto) 25.7 % 01/22/23 13:28 [place] % (Auto) 10.0 % 01/22/23 13:28 Eos % (Auto) 1.1 % 01/22/23 13:28 Baso % (Auto) 0.7 % 01/22/23 13:28 Neut # (Auto) 2.74 10^3/uL (1.8-7.7) 01/22/23 13:28 Lymph # (Auto) 1.1 10^3/uL (0.8-4.8) 01/22/23 13:28 [place] # (Auto) 0.4 10^3/uL (0.2-0.9) 01/22/23 13:28 Eos # (Auto) 0.1 10^3/uL (0.0-0.8) 01/22/23 13:28 Baso # (Auto) 0.0 10^3/uL (0.0-0.1) 01/22/23 13:28 Nucleated RBC % (auto) 0 % 01/22/23 13:28 Nucleated RBCs # 0.0 /100WBC 01/22/23 13:28 Sodium 139 mmol/L (136-145) 01/22/23 13:28 Potassium 3.4 mmol/L (3.5-5.1) L 01/22/23 13:28 Chloride 101 mmol/L (98-107) 01/22/23 13:28 Carbon Dioxide 28 mmol/L (22-29) 01/22/23 13:28 Anion Gap 13.4 (5-19) 01/22/23 13:28 BUN 7 mg/dL (6-20) 01/22/23 13:28 Creatinine 1.0 mg/dL (0.5-0.9) H 01/22/23 13:28 GFR Calculation 58.5 mL/min (90-130) L 01/22/23 13:28 Glucose 106 mg/dL (65-115) 01/22/23 13:28 Calculated Osmolality 286 mOsm/kg (285-295) 01/22/23 13:28 Calcium 9.2 mg/dL (8.5-10.5) 01/22/23 13:28 Total Bilirubin 0.9 mg/dL (0.15-1.2) 01/22/23 13:28 AST 15 U/L (0-32) 01/22/23 13:28 ALT 16 U/L (0-33) 01/22/23 13:28 Alkaline Phosphatase 138 U/L (35-105) H 01/22/23 13:28 Total Protein 7.3 g/dL (6.6-8.7) 01/22/23 13:28 Albumin 4.0 g/dL (3.5-5.2) 01/22/23 13:28 Globulin 3.3 g/dL (1.3-4.6) 01/22/23 13:28 Urine Color Yellow (Yellow) 01/22/23 13:00 Urine Appearance Clear (CLEAR) 01/22/23 13:00 Urine pH 6 (5-7) 01/22/23 13:00 Ur Specific [place] 1.015 (1.005-1.030) 01/22/23 13:00 Urine Protein Neg (Negative) 01/22/23 13:00 Urine Glucose (UA) Norm (Normal) 01/22/23 13:00 Urine Ketones Negative (Negative) 01/22/23 13:00 Urine Blood 2+ (Negative) H 01/22/23 13:00 Urine Nitrate Negative (Negative) 01/22/23 13:00 Urine Bilirubin Neg (Negative) 01/22/23 13:00 Urine Urobilinogen Neg mg/dL (Negative) 01/22/23 13:00 Ur Leukocyte Esterase Negative (Negative) 01/22/23 13:00 Urine RBC 0-4 /hpf (0-2) H 01/22/23 13:00 Urine WBC 0-4 /hpf (0-5) H 01/22/23 13:00 Ur Squamous Epith Cells 5-10 /hpf (0-5) H 01/22/23 13:00 Amorphous Sediment Not Reportable 01/22/23 13:00 Urine Bacteria Trace /hpf (NONE) 01/22/23 13:00 Discharge Plan Discharge Patient Disposition: Home Clinical Impression: Allergic reaction Condition: Stable Prescriptions: No Action (DME) night splint to left See Rx Instructions .Route .MEDSUPPLY Qty: 1 0RF Rx Instructions: As directed pantoprazole [Protonix] 40 mg tablet,delayed release (DR/EC) 40 mg PO BID 42 Days Qty: 84 0RF (DME) Cam Boot to the left See Rx Instructions .Route .MEDSUPPLY Qty: 1 0RF Rx Instructions: As directed fluoxetine 40 mg capsule 80 mg PO QAM Qty: 60 1RF trazodone 150 mg tablet 150 mg PO BEDTIME Qty: 30 1RF quetiapine [Seroquel XR] 300 mg tablet extended release 24 hr 300 mg PO .HS Qty: 30 1RF prazosin 5 mg capsule 5 mg PO .HS Qty: 30 1RF metoprolol tartrate 50 mg tablet 50 mg PO BID Qty: 180 3RF hydralazine 50 mg tablet 50 mg PO TID Qty: 270 3RF amlodipine 10 mg tablet 10 mg PO BEDTIME dicyclomine 20 mg tablet 20 mg PO QID Qty: 120 1RF topiramate [Topamax] 100 mg tablet 100 mg PO DAILY 90 Days Qty: 90 3RF Rx Instructions: Take 1 tablet daily diclofenac sodium [Voltaren Arthritis Pain] 1 % gel 4 g topical QID PRN (Reason: Pain) Qty: 100 0RF Rx Instructions: apply to single knee, ankle, foot; for foot includes sole/toes/top of foot (DME) Night Splint See Rx Instructions .Route .MEDSUPPLY Qty: 1 0RF Rx Instructions: As directed by HOME (DME) Night Splint See Rx Instructions .Route .MEDSUPPLY Qty: 1 0RF Rx Instructions: As directed diazepam [Valium] 5 mg tablet 5 mg PO ONCE PRN (Reason: anxiety) 1 Days Qty: 2 0RF nitroglycerin 0.6 mg/hr patch 24 hour See Rx Instructions .ROUTE .COMPLEX Qty: 30 1RF Dose Instruction: APPLY 1 PATCH NEEDED FOR PLANTAR FASCIA PAIN, ALLOW NITRATE FREE INTERVAL OF 10-12HRS/24HR PERIOD Rx Instructions: APPLY 1 PATCH NEEDED FOR PLANTAR FASCIA PAIN, ALLOW NITRATE FREE INTERVAL OF 10-12HRS/24HR PERIOD clonazepam 0.5 mg tablet 0.5 mg PO BID PRN (Reason: anxiety/panic) Qty: 60 0RF albuterol sulfate 90 mcg/actuation Hfa Aerosol Inhaler 1 - 2 puff INHALATION Q4H PRN (Reason: Shortness Of Breath) aspirin 81 mg Tablet,Chewable 81 mg PO QAM ipratropium-albuterol 0.5 mg-3 mg(2.5 mg base)/3 mL solution for nebulization 3 ml INHALATION DAILY PRN (Reason: Shortness Of Breath) polyethylene glycol 3350 [Miralax] 17 gram/dose powder 17 g PO DAILY PRN (Reason: Constipation) budesonide-formoterol [Symbicort] 160-4.5 mcg/actuation Hfa Aerosol Inhaler 2 puff INHALATION Q12H chlorthalidone 50 mg tablet 50 mg PO QAM losartan 100 mg tablet 100 mg PO QAM montelukast 10 mg tablet 10 mg PO DAILY gabapentin 100 mg capsule 100 mg PO TID PRN (Reason: Pain) hydroxychloroquine 200 mg tablet 200 mg PO BID isosorbide mononitrate 60 mg tablet extended release 24 hr 60 mg PO DAILY nitroglycerin [Nitrostat] 0.4 mg Tablet, Sublingual 0.4 mg SUBLINGUAL Q5M PRN (Reason: Chest Pain) Rx Instructions: do not exceed 3 doses per episode docusate sodium [Colace] 100 mg capsule 100 mg PO BID PRN (Reason: stool softener) promethazine 25 mg tablet 25 mg PO Q6H PRN (Reason: nausea and vomiting) Qty: 20 0RF methocarbamol 500 mg tablet 1,000 mg PO Q8H Qty: 30 0RF diclofenac sodium 50 mg tablet,delayed release (DR/EC) 50 mg PO Q12H PRN (Reason: pain) Qty: 20 0RF Medrol (Miguel) 4 mg tablets,dose pack See Rx Instructions .ROUTE .COMPLEX Qty: 21 0RF Rx Instructions: orally per package directions Discharge Orders: Discharge ED (Routine); Ordered 01/22/23 Ordered By: Henrik Stearns Referrals: Alpesh Garcia MD [Primary Care Provider] - 1 week Patient Instructions: Allergic Reaction Activity Restrictions/Additional Instructions: Continue to use [id number] antihistamine such as Benadryl, Zyrtec, Oksana, and Pepcid as directed. Follow-up with your family practice doctor within 1 week if needed. Do not get the TB skin test again as the next result may be worse. Coding Level of Care Code ED Marketing Agent for 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
[2023-01-22 13:26] LABS: Add Urine Microscopic? YES; Bilirubin Urine Neg (Negative); Blood Urine 2+ (Negative); Glucose Urine UA Norm (Normal); Ketones Urine Negative (Negative); Leukocyte Esterase Urine Negative (Negative); Nitrate Urine Negative (Negative); Protein Urine Neg (Negative); RBC Urine 0-4 /hpf (0-2); Specific Gravity, Urine 1.015 (1.005-1.030); Urine Appearance Clear (CLEAR); Urine Color Yellow (Yellow); Urobilinogen Urine Neg (Negative); WBC Urine 0-4 /hpf (0-5); pH Urine 6 (5-7)
[2023-01-22 13:27] LABS: Add Urine Culture? No; Bacteria Urine TRACE /hpf
[2023-01-22 13:48] LABS: Basophils % 0.7 %; Eosinophils # 0.1 10^3/uL (0.0-0.8); Eosinophils % 1.1 %; Hematocrit 39.3 % (37.0-47.0); Hemoglobin 12.2 g/dL (11.5-15.3); Lymphocytes # 1.1 10^3/uL (0.8-4.8); Lymphocytes % 25.7 %; Mean Corpuscular Hemoglobin 27.6 pg (28.0-34.0); Mean Corpuscular Volume 88.9 fl (81-99); Monocytes # 0.4 10^3/uL (0.2-0.9); Neutrophils # 2.74 10^3/uL (1.8-7.7); Neutrophils % 62.3 %; Nucleated Red Blood Cells % 0 %; Platelet Count 279 10^3/cmm (130-400); Red Blood Count 4.42 10^6/uL (4.1-5.3); Red Cell Distribution Width 14.6 % (12.1-15.1); White Blood Count 4.4 10^3/uL (4.0-10.0)
[2023-01-22 14:04] LABS: Alanine Aminotransferase 16 U/L (0-33); Alkaline Phosphatase 138 U/L (35-105); Anion Gap 13.4 (5-19); Aspartate Amino Transferase 15 U/L (0-32); Blood Urea Nitrogen 7 mg/dL (6-20); Calcium 9.2 mg/dL (8.5-10.5); Carbon Dioxide 28 mmol/L (22-29); Chloride 101 mmol/L (98-107); Globulin 3.3 g/dL (1.3-4.6); Glomerular Filtration Rate 58.5 mL/min (90-130); Glucose 106 mg/dL (65-115); Osmolality Calculated 286 mOsm/kg (285-295); Potassium 3.4 mmol/L (3.5-5.1); Sodium 139 mmol/L (136-145); Total Bilirubin 0.9 mg/dL (0.15-1.2); Total Protein 7.3 g/dL (6.6-8.7)
[2023-01-22] MEDS: dexamethasone 4 mg Tablet 10 MG PO (16:19)
[2023-01-22] MEDS: famotidine 20 mg Tablet 40 MG PO (16:20)
== END 2023-01-22 16:32 | disposition home or self-care (01) ==
PROVIDERS: Emergency Provider Emergency Medicine; PCP Family Medicine
DX: T78.40XA Allergy, unspecified, initial encounter (principal); T50.995A Adverse effect of other drugs, medicaments and biological substances, initial encounter; Z79.82 Long term (current) use of aspirin; Z77.22 Contact with and (suspected) exposure to environmental tobacco smoke (acute) (chronic); J44.9 Chronic obstructive pulmonary disease, unspecified; I10 Essential (primary) hypertension; X58.XXXA Exposure to other specified factors, initial encounter
CPT/HCPCS: 36415; 71046; 80053; 81001; 85025; 99284; J8540

== ENCOUNTER → 2023-01-31 09:55 | Outpatient (BNVA) | payer MEDICAID, SELFPAY | PROVIDERS: PCP Family Medicine; Visit Provider Nurse Practitioner Family | DX: I10 Essential (primary) hypertension (principal); Z79.82 Long term (current) use of aspirin | CPT/HCPCS: 99213 ==

== ENCOUNTER 2023-02-10 14:59 | Outpatient (CLI) | payer MEDICAID, SELFPAY ==
--- NOTE | 2023-02-10 15:15 | MR_ITS ---
WS: [id number] MRI CERVICAL SPINE NONCONTRAST HISTORY: neck pain COMPARISON: 06/07/2021 Technique: Multiplanar, multisequence noncontrast imaging of the cervical spine. Very mild straightening of the normal lordosis. Could be positional. No marrow edema or fracture. Signal within the cervical cord is normal. Visualized posterior fossa is unremarkable. Craniocervical junction, C1 and C2 relationship, odontoid process and soft tissues are normal. C2-C3: Normal. C3-C4: Very mild annular disc bulge and vertebral body osteophytes. Mild foraminal stenosis. C4-C5: Mild annular disc bulging and osteophytic ridging. Very mild central and foraminal stenosis. S light progression since the prior study. C5-C6: Mild annular disc bulging and osteophytic ridging. Mild central and foraminal stenosis. C6-C7: Mild osteophytic ridging. No stenosis. C7-T1: Normal. Paraspinal soft tissue are normal. MR/MR cervical spin wo con* [id number] IMPRESSION: 1. No significant progression of degenerative disc and osteophytic ridging sin ce 2020. 2. Mild bilateral foraminal stenosis at C3-4. 3. Very mild central and foraminal stenosis at C4-5 and C5-6.
== END 2023-02-10 15:00 | disposition home or self-care (01) ==
LOC: RAD 15:03
PROVIDERS: PCP Family Medicine; Visit Provider Orthopaedic Surgery
DX: M54.12 Radiculopathy, cervical region (principal); M48.02 Spinal stenosis, cervical region
CPT/HCPCS: 72141

== ENCOUNTER 2023-02-20 14:57 | Emergency (ER) | payer MEDICAID, SELFPAY ==
[2023-02-20] VITALS (43 sets, daily range): BP systolic 143–200; BP diastolic 86–146; PULSE 82; RESP 19; TEMP 36.7; O2SAT 87–99; BMI 41.5
--- NOTE | 2023-02-20 15:20 | ECG_ITS ---
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 Measurements Intervals [place] Rate: 88 P: -1 MN: 155 QRS: -5 QRSD: 88 T: 5 QT: 375 QTc: 454 Interpretive Statements SINUS RHYTHM Nonspecific T wave changes Compared to ECG 12/02/2022 21:30:20 T-wave abnormality no longer present Electronically Signed On 02-20-2023 21:22:17 CDT by Tracy Bo M.D. [email or web address]
--- NOTE | 2023-02-20 17:59 | CTR_ITS ---
PROCEDURE INFORMATION: Exam: CT Pelvis Without Contrast; Skeletal Exam date and time: 02/20/2023 6:32 PM Age: 52 years old Clinical indication: Injury or trauma; Fall; Blunt trauma (contusions or hematomas); Does not apply; Other: PT states all over; Additional info: Bilat hip pain after fall TECHNIQUE: Imaging protocol: Computed tomography of the pelvis without contrast. Exam focused on the skeleton. Radiation optimization: All CT scans at this facility use at least one of these dose optimization techniques: automated exposure control; mA and/or kV adjustment per patient size (includes targeted exams where dose is matched to clinical indication); or iterative reconstruction. REPORTING DATA: Count of CT and Cardiac NM exams in prior 12 months: This patient has received 7 known CTs and 0 known cardiac nuclear medicine studies in the 12 months prior to the current study. COMPARISON: CT bony pelvis [id number] 09/04/2022 1:33 AM RADIATION DOSE METRICS: Total DLP (mGy-cm): 690 FINDINGS: Stomach and bowel: Diverticulosis of the colon. Appendix: The appendix is visualized and is normal. Reproductive: Hysterectomy. Retained ovaries. Bones/joints: Benign bone island in the right iliac bone. The bones are intact and in normal alignment. No fracture. Soft tissues: Unremarkable. CT/CT pelvis wo con [id number] IMPRESSION: 1. No acute findings.
--- NOTE | 2023-02-20 17:59 | CTR_ITS ---
PROCEDURE INFORMATION: Exam: CT Lumbar Spine Without Contrast Exam date and time: 02/20/2023 6:29 PM Age: 52 years old Clinical indication: Injury or trauma; Fall; Blunt trauma (contusions or hematomas); Additional info: Prior injury new fall TECHNIQUE: Imaging protocol: Computed tomography of the lumbar spine without contrast. Radiation optimization: All CT scans at this facility use at least one of these dose optimization techniques: automated exposure control; mA and/or kV adjustment per patient size (includes targeted exams where dose is matched to clinical indication); or iterative reconstruction. REPORTING DATA: Count of CT and Cardiac NM exams in prior 12 months: This patient has received 7 known CTs and 0 known cardiac nuclear medicine studies in the 12 months prior to the current study. COMPARISON: MR lumbar spine wo con* [id number] 11/04/2022 8:22 AM RADIATION DOSE METRICS: Total DLP (mGy-cm): 1224 FINDINGS: Bones/joints: The vertebral body alignment and stature is maintained. No fracture or subluxation. Schmorl's nodes at T12 and L1. The facets are intact with mild degenerative changes. L1-L2: No significant disc bulge or herniation. No severe spinal canal stenosis. No significant neural foraminal narrowing. L2-L3: No significant disc bulge or herniation. No severe spinal canal stenosis. No significant neural foraminal narrowing. L3-L4: No significant disc bulge or herniation. No severe spinal canal stenosis. No significant neural foraminal narrowing. L4-L5: No significant disc bulge or herniation. No severe spinal canal stenosis. No significant neural foraminal narrowing. L5-S1: No significant disc bulge or herniation. No severe spinal canal stenosis. No significant neural foraminal narrowing. Soft tissues: Unremarkable. CT/CT lumbar spine wo con* [id number] IMPRESSION: No acute findings.
--- NOTE | 2023-02-20 18:01 | W.ED.FALL ---
HPI - Fall General: Chief Complaint: Weakness Stated Complaint: body aches/cp/sore throat/hands numb Time Seen by Provider: 02/20/23 17:04 Source: patient Mode of arrival: ambulatory Limitations: no limitations History of Present Illness: This patient comes to the emergency department because of increasing pain in her right hip and pelvis. She also complains of low back pain. 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 She states this occurred last year and resulted in injuries to her right shoulder left shoulder as well as her low back and hips. She has dealt with chronic pain from these injuries for some time and now relates that she had a another fall a couple of days ago on her right hip. She states she did not hit her head or suffer a loss of conscious during this fall. There was not any syncope palpitations or other cardiovascular symptoms associated with this fall. She states it hurts to get up and therefore she sometimes cannot make it to the bathroom because of low back pain impeding her progress to the toilet. She denies any perineal numbness loss of bowel or bladder control etc. Fall from: standing Context: tripped/slipped Associated symptoms-after fall: Denies abdominal pain, chest pain, headache(s), lightheadedness or neck pain Review of Systems Const: Denies: fever(s) or chills Eyes: Denies: change in vision ENMT: Denies: throat pain or odynophagia Card: Denies: chest pain, irregular heart rhythm, lightheadedness, syncope or pre-syncope Resp: Denies: dyspnea, productive cough or non-productive cough GI: Denies: abdominal pain, nausea or vomiting : Denies: flank pain, difficulty voiding, dysuria or urinary frequency Musc: Reports: back pain and extremity pain; Denies: neck pain Skin/Breast: Denies: rash or pruritus Neuro: Denies: headache(s), numbness in extremities or weakness in extremities Psych: Reports: anxiety [facility] ED PFSH: Medical History Abnormal reflex COPD (chronic obstructive pulmonary disease) GERD (gastroesophageal reflux disease) Helicobacter pylori gastritis HTN (hypertension) Neck pain Psychiatric care Psychiatric care Kimberly patel Surgical History History of cholecystectomy History of esophagogastroduodenoscopy Hx of section Hx of colonoscopy 2020 [facility] Hx of hysterectomy Family History Family/Other Cancer Diabetes Father Diabetes Hyperlipidemia Hypertension Stroke Mother Hypertension Stroke CAD (coronary artery disease) Rheumatoid arthritis Other Major depressive disorder, recurrent severe without psychotic features Panic disorder [episodic paroxysmal anxiety] Post-traumatic stress disorder, chronic Social History Smoking and tobacco status: never smoked Second hand smoke exposure: Yes Alcohol intake: never Substance/Drug Use: never Physical Exam Narrative: EXAM NARRATIVE: Very anxious appearing patient who speaks in rapid voice with some pressured speech. She generally answers questions in a appropriate fashion. Const: COMMON NORMALS: patient oriented x3 and alert GENERAL APPEARANCE: anxious NUTRITIONAL APPEARANCE: overweight ORIENTATION/CONSCIOUSNESS: Yes awake, Yes oriented to person and Yes oriented to place HENMT: COMMON NORMALS: normocephalic, Normal nasal mucous membranes and turbinates present and moist oral mucous membranes HEAD & SCALP: normocephalic FACE & SINUS: normal facial exam NOSE: Normal nasal mucous membranes and turbinates present Eye: COMMON NORMALS: Equal, round and reactive pupils present, EOMs intact bilaterally and conjunctivae normal CONJUNCTIVA: Yes conjunctivae normal PUPIL: Yes Equal, round and reactive pupils present Neck/C-Spine: COMMON NORMALS: full ROM, no lymphadenopathy, supple and no JVD Chest: COMMONS NORMALS: normal inspection of the chest Resp: COMMON NORMALS: normal respiratory effort, No retractions, No use of accessory muscles and clear to auscultation bilaterally AUSCULTATION: clear to auscultation bilaterally Cardio: COMMON NORMALS: no JVD, regular rate, regular rhythm, No murmurs present (Cardio) and Peripheral pulses 2+ throughout RATE: regular rate RHYTHM: regular rhythm PERIPHERAL PULSES: Peripheral pulses 2+ throughout GI: COMMON NORMALS: Normal to inspection, nondistended, normoactive bowel sounds present, Soft to palpation and non-tender PALPATION: Yes Soft to palpation Back/Pelvis: THORACIC SPINE/UPPER BACK: Yes normal to inspection LUMBAR SPINE/LOWER BACK: Yes lumbar spinal tenderness PELVIS: Yes no pain with anterior-posterior compression, Yes no pain with lateral compression and Yes tenderness over symphysis pubis SACROILIAC JOINTS: Yes SI joint(s) abnormal SI joint details: tender to palpation Neuro: COMMON NORMALS: patient oriented x3 SENSORIUM/ORIENTATION: Yes alert, Yes oriented to person and Yes oriented to place Course Reevaluation(s): Reevaluation #1: Patient's blood pressure is now 158/78 without any intervention other than analgesia. She is noted to be very active and not displaying any signs of acute distress or discomfort. She is noted to interact with her cell phone. I shared with her the reassuring nature of her current imaging today. She then proceeded to tell me how active she is in want her to stay active. She also states that she needs a work excuse for today as she had to miss work. I discussed the need to continue to follow-up with her regular physicians and should she develop any new or concerning symptoms to return to the emergency department immediately. Time: 19:38 Vital Signs: Vital signs: Vital Signs Temperature 98.1 F 02/20/23 15:11 Pulse Rate 82 02/20/23 15:11 Respiratory Rate 19 H 02/20/23 15:11 Blood Pressure 170/98 02/20/23 19:20 Pulse Oximetry 94 02/20/23 19:20 Oxygen Delivery Me thod Room Air 02/20/23 15:11 MDM - Fall Medical Decision Making Patient with a history of chronic musculoskeletal complaint including low back pain shoulder pain and hip pain. She comes to the emergency department come of been complaining of increased pain. She relates that she had a fall a couple of days ago and landed on her right hip and back. Her clinical examination was reassuring. She had no evidence of ecchymosis. Some mild paravertebral tenderness in the lumbar region and seemingly worse than clinical findings subjectively. She had negative straight leg raising bilaterally. No evidence of perineal numbness nor no contributory history of bowel or bladder incontinence. Imaging was obtained which was reassuring. Her elevated blood pressure noted on presentation came down nicely with analgesics. No evidence of acute fracture or other concerns at this time and certainly no history or clinical findings to suggest any cord compression etc. Exacerbation of chronic pain. Discussed findings and follow-up instructions with patient. She acknowledges her discussion. Medical Records I reviewed the patient's medical records. Lab Data I reviewed the patient's lab results. Radiology Impressions Lumbar Spine CT 02/20/23 17:59 IMPRESSION: No acute findings. Pelvis CT 02/20/23 17:59 IMPRESSION: 1. No acute findings. Discharge Plan Discharge Patient Disposition: Home Clinical Impression: Fall from ground level, Low back pain, Chronic hypertension Condition: Stable Prescriptions: No Action (DME) night splint to left See Rx Instructions .Route .MEDSUPPLY Qty: 1 0RF Rx Instructions: As directed pantoprazole [Protonix] 40 mg tablet,delayed release (DR/EC) 40 mg PO BID 42 Days Qty: 84 0RF (DME) Cam Boot to the left See Rx Instructions .Route .MEDSUPPLY Qty: 1 0RF Rx Instructions: As directed trazodone 150 mg tablet 150 mg PO BEDTIME Qty: 30 1RF metoprolol tartrate 50 mg tablet 50 mg PO BID Qty: 180 3RF amlodipine 10 mg tablet 10 mg PO BEDTIME dicyclomine 20 mg tablet 20 mg PO QID Qty: 120 1RF hydrocodone-acetaminophen 7.5-325 mg tablet 1 tab PO TID PRN hydralazine 100 mg tablet 100 mg PO TID Qty: 300 3RF (DME) blood pressure monitor Kit See Rx Instructions .Route Qty: 1 0RF Rx Instructions: As directed diclofenac sodium [Voltaren Arthritis Pain] 1 % gel 4 g topical QID PRN (Reason: Pain) Qty: 100 0RF Rx Instructions: apply to single knee, ankle, foot; for foot includes sole/toes/top of foot (DME) Night Splint See Rx Instructions .Route .MEDSUPPLY Qty: 1 0RF Rx Instructions: As directed by HOME (DME) Night Splint See Rx Instructions .Route .MEDSUPPLY Qty: 1 0RF Rx Instructions: As directed diazepam [Valium] 5 mg tablet 5 mg PO ONCE PRN (Reason: anxiety) 1 Days Qty: 2 0RF nitroglycerin 0.6 mg/hr patch 24 hour See Rx Instructions .ROUTE .COMPLEX Qty: 30 1RF Dose Instruction: APPLY 1 PATCH NEEDED FOR PLANTAR FASCIA PAIN, ALLOW NITRATE FREE INTERVAL OF 10-12HRS/24HR PERIOD Rx Instructions: APPLY 1 PATCH NEEDED FOR PLANTAR FASCIA PAIN, ALLOW NITRATE FREE INTERVAL OF 10-12HRS/24HR PERIOD clonazepam 0.5 mg tablet 0.5 mg PO BID PRN (Reason: anxiety/panic) Qty: 60 0RF topiramate [Topamax] 100 mg tablet 100 mg PO DAILY 90 Days Qty: 90 3RF Rx Instructions: Take 1 tablet daily quetiapine [Seroquel XR] 300 mg tablet extended release 24 hr 300 mg PO .HS Qty: 30 1RF prazosin 5 mg capsule See Rx Instructions .ROUTE .COMPLEX Qty: 30 1RF Dose Instruction: TAKE 1 CAPSULE BY MOUTH AT BEDTIME Rx Instructions: TAKE 1 CAPSULE BY MOUTH AT BEDTIME fluoxetine 40 mg capsule See Rx Instructions .ROUTE .COMPLEX Qty: 60 1RF Dose Instruction: TAKE 2 CAPSULES BY MOUTH IN THE MORNING Rx Instructions: TAKE 2 CAPSULES BY MOUTH IN THE MORNING albuterol sulfate 90 mcg/actuation Hfa Aerosol Inhaler 1 - 2 puff INHALATION Q4H PRN (Reason: Shortness Of Breath) aspirin 81 mg Tablet,Chewable 81 mg PO QAM ipratropium-albuterol 0.5 mg-3 mg(2.5 mg base)/3 mL solution for nebulization 3 ml INHALATION DAILY PRN (Reason: Shortness Of Breath) polyethylene glycol 3350 [Miralax] 17 gram/dose powder 17 g PO DAILY PRN (Reason: Constipation) budesonide-formoterol [Symbicort] 160-4.5 mcg/actuation Hfa Aerosol Inhaler 2 puff INHALATION Q12H chlorthalidone 50 mg tablet 50 mg PO QAM losartan 100 mg tablet 100 mg PO QAM montelukast 10 mg tablet 10 mg PO DAILY hydroxychloroquine 200 mg tablet 200 mg PO BID gabapentin 100 mg capsule 300 mg PO TID PRN (Reason: Pain) isosorbide mononitrate 60 mg tablet extended release 24 hr 60 mg PO DAILY nitroglycerin [Nitrostat] 0.4 mg Tablet, Sublingual 0.4 mg SUBLINGUAL Q5M PRN (Reason: Chest Pain) Rx Instructions: do not exceed 3 doses per episode docusate sodium [Colace] 100 mg capsule 100 mg PO BID PRN (Reason: stool softener) promethazine 25 mg tablet 25 mg PO Q6H PRN (Reason: nausea and vomiting) Qty: 20 0RF methocarbamol 500 mg tablet 1,000 mg PO Q8H Qty: 30 0RF diclofenac sodium 50 mg tablet,delayed release (DR/EC) 50 mg PO Q12H PRN (Reason: pain) Qty: 20 0RF Discharge Orders: Discharge ED (Routine); Ordered 02/20/23 Ordered By: Solomon Beltran Referrals: Alpesh Garcia MD [Primary Care Provider] - Discharge Diet: Usual diet Discharge Activity: Increase activity as tolerated Patient Instructions: Opioid Safety, Pain Management Activity Restrictions/Additional Instructions: Use ice or cool packs to the area of discomfort. Continue all your usual medication to include all your blood pressure controlling medications. If you develop any new or worsening symptoms you are welcome to return to the emergency department at any time. Otherwise follow-up with your regular physicians as scheduled. 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
[2023-02-20] MEDS: HYDROcodone-acetaminophen 10-325 mg Tablet 1 TAB PO (18:08)
--- NOTE | 2023-02-20 19:44 | PC.NURSE ---
Did not give hydralazine per MD Beltran, pt BP improved.
== END 2023-02-20 20:18 | disposition home or self-care (01) ==
PROVIDERS: Emergency Provider Emergency Medicine; PCP Family Medicine
DX: M54.50 Low back pain, unspecified (principal); I10 Essential (primary) hypertension; Z79.82 Long term (current) use of aspirin; Z77.22 Contact with and (suspected) exposure to environmental tobacco smoke (acute) (chronic); J44.9 Chronic obstructive pulmonary disease, unspecified
CPT/HCPCS: 72131; 72192; 93005; 99284

== ENCOUNTER → 2023-02-27 08:01 | Outpatient (BNVA) | payer MEDICAID, SELFPAY | PROVIDERS: PCP Family Medicine; Visit Provider Orthopaedic Surgery | DX: M54.2 Cervicalgia (principal); R20.0 Anesthesia of skin | CPT/HCPCS: 99214 ==

== ENCOUNTER 2023-03-08 17:12 | Emergency (ER) | payer MEDICAID, SELFPAY ==
--- NOTE | 2023-03-08 17:17 | XRR_ITS ---
PROCEDURE INFORMATION: Exam: XR Left Foot Exam date and time: 03/08/2023 5:22 PM Age: 52 years old Clinical indication: Injury or trauma; Fall; Sprain or strain; Foot; Left TECHNIQUE: Imaging protocol: Radiologic exam of the left foot. Views: 3 or more views. COMPARISON: No relevant prior studies available. FINDINGS: Bones/joints: No periosteal reaction or inflammatory erosions. No acute fracture. No dislocation. The Lisfranc joint alignment is intact. No bony destruction or osteomyelitis. Soft tissues: There is no foreign body. XR/XR foot LT min 3V* [id number] IMPRESSION: No acute bony abnormality is identified.
[2023-03-08 17:19] VITALS: BP 221/176; PULSE 99; RESP 17; TEMP 36.5; O2SAT 98; BMI 41.1
--- NOTE | 2023-03-08 17:19 | XRR_ITS ---
PROCEDURE INFORMATION: Exam: XR Left Ankle Exam date and time: 03/08/2023 5:22 PM Age: 52 years old Clinical indication: Injury or trauma; Fall; Sprain or strain; Ankle and heel and foot; Left; Additional info: Pain TECHNIQUE: Imaging protocol: Radiologic exam of the left ankle. Views: 3 or more views. COMPARISON: No relevant prior studies available. FINDINGS: Bones/joints: There is calcaneal enthesopathy. There is bony remodeling of the tip of the medial malleolus compatible with old injury. The talar dome is smooth. There is no osteochondral defect. The ankle mortise is intact. No acute fracture. No dislocation. Soft tissues: There is soft tissue edema. No foreign body. XR/XR ankle LT min 3V* [id number] IMPRESSION: No acute bony abnormality.
--- NOTE | 2023-03-08 17:24 | ED_ITS ---
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 Pain is in her dorsum of her mid left foot some slight ankle pain as well she rates her pain a 6 out of 10 denies any pain elsewhere. Associated symptoms: Deny chest pain, fever(s) or rash Review of Systems Const: Denies: fever(s) or chills Card: Denies: chest pain Resp: Denies: dyspnea GI: Denies: abdominal pain, nausea, vomiting or diarrhea Musc: Reports: extremity pain; Denies: neck pain or back pain Skin/Breast: Denies: rash Neuro: Denies: headache(s) All/Imm: Denies: urticaria PFSH ED PFSH: Medical History Abnormal reflex COPD (chronic obstructive pulmonary disease) GERD (gastroesophageal reflux disease) Helicobacter pylori gastritis HTN (hypertension) Neck pain Psychiatric care Psychiatric care Kimberly patel Surgical History History of cholecystectomy History of esophagogastroduodenoscopy Hx of section Hx of colonoscopy 2020 [facility] Hx of hysterectomy Family History Family/Other Cancer Diabetes Father Diabetes Hyperlipidemia Hypertension Stroke Mother Hypertension Stroke CAD (coronary artery disease) Rheumatoid arthritis Other Major depressive disorder, recurrent severe without psychotic features Panic disorder [episodic paroxysmal anxiety] Post-traumatic stress disorder, chronic Social History Smoking and tobacco status: never smoked Second hand smoke exposure: Yes Alcohol intake: never Substance/Drug Use: never Physical Exam Const: COMMON NORMALS: no acute distress, average body habitus and patient oriented x3 HENMT: COMMON NORMALS: normocephalic and atraumatic HEAD & SCALP: normocephalic and atraumatic Eye: COMMON NORMALS: conjunctivae normal CONJUNCTIVA: Yes conjunctivae normal Neck/C-Spine: COMMON NORMALS: supple Chest: COMMONS NORMALS: normal inspection of the chest Resp: COMMON NORMALS: normal respiratory effort GI: INSPECTION: Yes normal to inspection Extremity: NARRATIVE EXTREMITY EXAM: Tenderness to left foot no obvious deformity no warmth to touch no redness Neuro: COMMON NORMALS: patient oriented x3 Psych: COMMON NORMALS: mental status grossly normal Skin: COMMON NORMALS: no rashes or lesions noted GENERAL SKIN EXAM: no rashes or lesions noted Course Vital Signs: Vital signs: Vital Signs Temperature 97.7 F 03/08/23 17:19 Pulse Rate 99 03/08/23 17:19 Respiratory Rate 17 03/08/23 17:19 Blood Pressure 221/176 03/08/23 17:19 Pulse Oximetry 98 03/08/23 17:19 Oxygen Delivery Me thod Room Air 03/08/23 17:19 MDM - Extremity (Nontraumatic) Medical Decision Making Patient presents with left foot pain x-ray here is negative exam is benign we will Andrea wrap get her crutches she is to weight-bear as tolerated she is to follow-up with Dr. Dixon. Medical Records I reviewed the patient's medical records. Imaging Data xr L foot: I personally reviewed and interpreted this imaging study as follows: My impression: no acute abnormality Discharge Plan Discharge Patient Disposition: Home Clinical Impression: Left foot pain Condition: Stable Prescriptions: New Naprosyn 500 mg tablet 500 mg PO BID PRN (Reason: pain) Qty: 20 0RF No Action (DME) night splint to left See Rx Instructions .Route .MEDSUPPLY Qty: 1 0RF Rx Instructions: As directed pantoprazole [Protonix] 40 mg tablet,delayed release (DR/EC) 40 mg PO BID 42 Days Qty: 84 0RF (DME) Cam Boot to the left See Rx Instructions .Route .MEDSUPPLY Qty: 1 0RF Rx Instructions: As directed trazodone 150 mg tablet 150 mg PO BEDTIME Qty: 30 1RF metoprolol tartrate 50 mg tablet 50 mg PO BID Qty: 180 3RF amlodipine 10 mg tablet 10 mg PO BEDTIME dicyclomine 20 mg tablet 20 mg PO QID Qty: 120 1RF hydrocodone-acetaminophen 7.5-325 mg tablet 1 tab PO TID PRN hydralazine 100 mg tablet 100 mg PO TID Qty: 300 3RF (DME) blood pressure monitor Kit See Rx Instructions .Route Qty: 1 0RF Rx Instructions: As directed diclofenac sodium [Voltaren Arthritis Pain] 1 % gel 4 g topical QID PRN (Reason: Pain) Qty: 100 0RF Rx Instructions: apply to single knee, ankle, foot; for foot includes sole/toes/top of foot (DME) Night Splint See Rx Instructions .Route .MEDSUPPLY Qty: 1 0RF Rx Instructions: As directed by HOME (DME) Night Splint See Rx Instructions .Route .MEDSUPPLY Qty: 1 0RF Rx Instructions: As directed diazepam [Valium] 5 mg tablet 5 mg PO ONCE PRN (Reason: anxiety) 1 Days Qty: 2 0RF topiramate [Topamax] 100 mg tablet 100 mg PO DAILY 90 Days Qty: 90 3RF Rx Instructions: Take 1 tablet daily quetiapine [Seroquel XR] 300 mg tablet extended release 24 hr 300 mg PO .HS Qty: 30 1RF prazosin 5 mg capsule See Rx Instructions .ROUTE .COMPLEX Qty: 30 1RF Dose Instruction: TAKE 1 CAPSULE BY MOUTH AT BEDTIME Rx Instructions: TAKE 1 CAPSULE BY MOUTH AT BEDTIME fluoxetine 40 mg capsule See Rx Instructions .ROUTE .COMPLEX Qty: 60 1RF Dose Instruction: TAKE 2 CAPSULES BY MOUTH IN THE MORNING Rx Instructions: TAKE 2 CAPSULES BY MOUTH IN THE MORNING clonazepam 0.5 mg tablet 0.5 mg PO BID PRN (Reason: anxiety/panic) Qty: 60 0RF nitroglycerin 0.6 mg/hr patch 24 hour See Rx Instructions .ROUTE .COMPLEX Qty: 30 1RF Dose Instruction: APPLY 1 PATCH NEEDED FOR PLANTAR FASCIA PAIN, ALLOW NITRATE FREE INTERVAL OF 10-12HRS/24HR PERIOD Rx Instructions: APPLY 1 PATCH NEEDED FOR PLANTAR FASCIA PAIN, ALLOW NITRATE FREE INTERVAL OF 10-12HRS/24HR PERIOD albuterol sulfate 90 mcg/actuation Hfa Aerosol Inhaler 1 - 2 puff INHALATION Q4H PRN (Reason: Shortness Of Breath) aspirin 81 mg Tablet,Chewable 81 mg PO QAM ipratropium-albuterol 0.5 mg-3 mg(2.5 mg base)/3 mL solution for nebulization 3 ml INHALATION DAILY PRN (Reason: Shortness Of Breath) polyethylene glycol 3350 [Miralax] 17 gram/dose powder 17 g PO DAILY PRN (Reason: Constipation) budesonide-formoterol [Symbicort] 160-4.5 mcg/actuation Hfa Aerosol Inhaler 2 puff INHALATION Q12H chlorthalidone 50 mg tablet 50 mg PO QAM losartan 100 mg tablet 100 mg PO QAM montelukast 10 mg tablet 10 mg PO DAILY hydroxychloroquine 200 mg tablet 200 mg PO BID gabapentin 100 mg capsule 300 mg PO TID PRN (Reason: Pain) isosorbide mononitrate 60 mg tablet extended release 24 hr 60 mg PO DAILY nitroglycerin [Nitrostat] 0.4 mg Tablet, Sublingual 0.4 mg SUBLINGUAL Q5M PRN (Reason: Chest Pain) Rx Instructions: do not exceed 3 doses per episode docusate sodium [Colace] 100 mg capsule 100 mg PO BID PRN (Reason: stool softener) promethazine 25 mg tablet 25 mg PO Q6H PRN (Reason: nausea and vomiting) Qty: 20 0RF methocarbamol 500 mg tablet 1,000 mg PO Q8H Qty: 30 0RF diclofenac sodium 50 mg tablet,delayed release (DR/EC) 50 mg PO Q12H PRN (Reason: pain) Qty: 20 0RF Discharge Orders: Discharge ED (Routine); Ordered 03/08/23 Ordered By: Leon Moura Referrals: Alpesh Garcia MD [Primary Care Provider] - 1-3 days Discharge Diet: Advance as tolerated Discharge Activity: Resume usual activity Patient Instructions: Arthralgia (ED) Coding Level of Care Code ED Progressive Care Nurse for 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
[2023-03-08] MEDS: HYDROcodone-acetaminophen 5-325 mg Tablet 1 TAB PO (17:30)
[2023-03-08 17:51] VITALS: BP 198/106; PULSE 99; O2SAT 98
== END 2023-03-08 17:55 | disposition home or self-care (01) ==
PROVIDERS: Emergency Provider Emergency Medicine; PCP Family Medicine
DX: M79.672 Pain in left foot (principal)
CPT/HCPCS: 73610; 73630; 99283

== ENCOUNTER 2023-03-20 16:56 | Emergency (ER) | payer MEDICAID, SELFPAY ==
[2023-03-20 17:07] VITALS: BMI 41.1
[2023-03-20 17:11] VITALS: BP 216/121; PULSE 98; RESP 18; TEMP 36.7; O2SAT 97
--- NOTE | 2023-03-20 17:20 | ED_ITS ---
HPI - Extremity Problem General: Chief complaint: Extremity Problem,Nontraumatic Stated complaint: head pain and knee pain Time Seen by Provider: 03/20/23 17:14 Source: patient Mode of arrival: ambulatory Limitations: no limitations History of Present Illness: Patient is in the emergency department this afternoon because of pain in her lower back radiating down to her hip into her knee. 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 She has intermittent low back pain from time to time but this seems to be precipitated by her lifting episode today. She has no history of back surgery. No history of bowel or bladder dysfunction. No history of perineal numbness. She has had no falls or injuries. She has not taken any nonsteroidals today. She has taken her blood pressure medication. Location: right Exacerbating factors: range of motion and palpation Associated symptoms: Deny chest pain, fever(s) or rash Review of Systems Const: Denies: fever(s) or chills Card: Denies: chest pain, palpitations, irregular heart rhythm, lightheadedness, syncope or pre-syncope Resp: Denies: dyspnea, productive cough or non-productive cough GI: Denies: abdominal pain, nausea or vomiting : Denies: flank pain, difficulty voiding, dysuria or urinary frequency Musc: Reports: back pain and extremity pain; Denies: neck pain Skin/Breast: Denies: rash or pruritus Neuro: Denies: numbness in extremities or weakness in extremities [facility] ED PFSH: Medical History Abnormal reflex COPD (chronic obstructive pulmonary disease) GERD (gastroesophageal reflux disease) Helicobacter pylori gastritis HTN (hypertension) Neck pain Psychiatric care Psychiatric care [facility] Surgical History History of cholecystectomy History of esophagogastroduodenoscopy Hx of section Hx of colonoscopy 2020 [facility] Hx of hysterectomy Family History Family/Other Cancer Diabetes Father Diabetes Hyperlipidemia Hypertension Stroke Mother Hypertension Stroke CAD (coronary artery disease) Rheumatoid arthritis Other Major depressive disorder, recurrent severe without psychotic features Panic disorder [episodic paroxysmal anxiety] Post-traumatic stress disorder, chronic Social History Smoking and tobacco status: never smoked Second hand smoke exposure: Yes Alcohol intake: never Substance/Drug Use: never Physical Exam Narrative: EXAM NARRATIVE: She is alert. She makes good eye contact and speaks in goal-directed sentences. She is able to move unaided about the examination room and transfer off and o nto the examination bed and disrobe herself without assistance. Const: COMMON NORMALS: patient oriented x3 GENERAL APPEARANCE: cooperative NUTRITIONAL APPEARANCE: overweight HENMT: COMMON NORMALS: normocephalic, Normal nasal mucous membranes and turbinates present and moist oral mucous membranes HEAD & SCALP: normocephalic NOSE: Normal nasal mucous membranes and turbinates present Eye: COMMON NORMALS: Equal, round and reactive pupils present PUPIL: Yes Equal, round and reactive pupils present Neck/C-Spine: COMMON NORMALS: full ROM and no lymphadenopathy Resp: COMMON NORMALS: normal respiratory effort, No use of accessory muscles and clear to auscultation bilaterally AUSCULTATION: clear to auscultation bilaterally Cardio: COMMON NORMALS: regular rate, regular rhythm and Peripheral pulses 2+ throughout RATE: regular rate RHYTHM: regular rhythm PERIPHERAL PULSES: Peripheral pulses 2+ throughout GI: COMMON NORMALS: Soft to palpation and non-tender PALPATION: Yes Soft to palpation : COMMON NORMALS: Yes no CVA tenderness BLADDER/KIDNEY EXAM: Yes no CVA tenderness Back/Pelvis: COMMON NORMALS: no CVA tenderness THORACIC SPINE/UPPER BACK: Yes normal to inspection and No thoracic spinal tenderness LUMBAR SPINE/LOWER BACK: Yes straight leg raise negative bilaterally PELVIS: Yes no pain with anterior-posterior compression and Yes no pain with lateral compression SACROILIAC JOINTS: Yes SI joint(s) abnormal SI joint details: tender to palpation (Right side) OTHER: Examination the axial spine reveals no midline tenderness. She does have tenderness in the paralumbar region particularly on the right with self tissue tenderness to palpation particular over the posterior superior iliac spine and SI joint region. External and internal rotation of the right hip exacerbates her symptoms. She has negative straight leg raising bilaterally. Extremity: COMMON NORMALS: normal to inspection, full ROM, capillary refill normal and no calf tenderness NARRATIVE EXTREMITY EXAM: No studies here evaluation here did not determine any serious causeExamination with attention of her right lower extremity reveals no deformity. She has no tenderness over the greater trochanter internal and external rotation does not produce right hip pain but does exacerbate some of her lower back pain. Right knee joint is normal in appearance without any effusion. Patellar tendon and quadricep tendon functions intact. There is no laxity. The remainder of her right lower extremity is normal. Neuro: COMMON NORMALS: patient oriented x3, moves all extremities, no focal motor deficits, no sensory deficits noted and gait normal Psych: COMMON NORMALS: mental status grossly normal Skin: COMMON NORMALS: no rashes or lesions noted, no wounds and turgor normal GENERAL SKIN EXAM: no rashes or lesions noted and turgor normal Course Reevaluation(s): Reevaluation #1: Patient is improved. No evidence at this time to suggest a serious low back issue with no red flag history or findings. Consistent with low back pain sick sacroiliac dysfunction due to twisting and bending activities with some associated sciatic nerve radiation to her knee. No evidence of a knee injury at this time etc. Discussed expected course and activities to limit and be careful of her lifting etc. Discussed return precautions. 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 She has been doing some lifting activities using a lift belt and states that seem to worsen her symptoms. There was no history to suggest a worrisome etiology of her back pain without any loss of bowel or bladder control fever gastric cancer, drug use, weight loss etc. Her examination was remarkable in that she had reproducible symptoms with palpation of the soft tissues over the posterior superior iliac spine as well as rotation of the hip. Suggestive of sacroiliac dysfunction and perhaps some psoas involvement she was given analgesics in the emergency department for symptomatic relief. We have discussed work-related activities etc. and also discussed follow-up. Discharge Plan Discharge Condition: Stable Prescriptions: New methocarbamol 750 mg tablet 750 mg PO TID Qty: 14 0RF No Action (DME) night splint to left See Rx Instructions .Route .MEDSUPPLY Qty: 1 0RF Rx Instructions: As directed pantoprazole [Protonix] 40 mg tablet,delayed release (DR/EC) 40 mg PO BID 42 Days Qty: 84 0RF (DME) Cam Boot to the left See Rx Instructions .Route .MEDSUPPLY Qty: 1 0RF Rx Instructions: As directed metoprolol tartrate 50 mg tablet 50 mg PO BID Qty: 180 3RF amlodipine 10 mg tablet 10 mg PO BEDTIME dicyclomine 20 mg tablet 20 mg PO QID Qty: 120 1RF hydrocodone-acetaminophen 7.5-325 mg tablet 1 tab PO TID PRN hydralazine 100 mg tablet 100 mg PO TID Qty: 300 3RF (DME) blood pressure monitor Kit See Rx Instructions .Route Qty: 1 0RF Rx Instructions: As directed diclofenac sodium [Voltaren Arthritis Pain] 1 % gel 4 g topical QID PRN (Reason: Pain) Qty: 100 0RF Rx Instructions: apply to single knee, ankle, foot; for foot includes sole/toes/top of foot (DME) Night Splint See Rx Instructions .Route .MEDSUPPLY Qty: 1 0RF Rx Instructions: As directed by HOME (DME) Night Splint See Rx Instructions .Route .MEDSUPPLY Qty: 1 0RF Rx Instructions: As directed diazepam [Valium] 5 mg tablet 5 mg PO ONCE PRN (Reason: anxiety) 1 Days Qty: 2 0RF topiramate [Topamax] 100 mg tablet 100 mg PO DAILY 90 Days Qty: 90 3RF Rx Instructions: Take 1 tablet daily quetiapine [Seroquel XR] 300 mg tablet extended release 24 hr 300 mg PO .HS Qty: 30 1RF prazosin 5 mg capsule See Rx Instructions .ROUTE .COMPLEX Qty: 30 1RF Dose Instruction: TAKE 1 CAPSULE BY MOUTH AT BEDTIME Rx Instructions: TAKE 1 CAPSULE BY MOUTH AT BEDTIME fluoxetine 40 mg capsule See Rx Instructions .ROUTE .COMPLEX Qty: 60 1RF Dose Instruction: TAKE 2 CAPSULES BY MOUTH IN THE MORNING Rx Instructions: TAKE 2 CAPSULES BY MOUTH IN THE MORNING clonazepam 0.5 mg tablet 0.5 mg PO BID PRN (Reason: anxiety/panic) Qty: 60 0RF nitroglycerin 0.6 mg/hr patch 24 hour See Rx Instructions .ROUTE .COMPLEX Qty: 30 1RF Dose Instruction: APPLY 1 PATCH NEEDED FOR PLANTAR FASCIA PAIN, ALLOW NITRATE FREE INTERVAL OF 10-12HRS/24HR PERIOD Rx Instructions: APPLY 1 PATCH NEEDED FOR PLANTAR FASCIA PAIN, ALLOW NITRATE FREE INTERVAL OF 10-12HRS/24HR PERIOD trazodone 150 mg tablet See Rx Instructions .ROUTE .COMPLEX Qty: 30 1RF Dose Instruction: TAKE 1 TABLET BY MOUTH AT BEDTIME Rx Instructions: TAKE 1 TABLET BY MOUTH AT BEDTIME albuterol sulfate 90 mcg/actuation Hfa Aerosol Inhaler 1 - 2 puff INHALATION Q4H PRN (Reason: Shortness Of Breath) aspirin 81 mg Tablet,Chewable 81 mg PO QAM ipratropium-albuterol 0.5 mg-3 mg(2.5 mg base)/3 mL solution for nebulization 3 ml INHALATION DAILY PRN (Reason: Shortness Of Breath) polyethylene glycol 3350 [Miralax] 17 gram/dose powder 17 g PO DAILY PRN (Reason: Constipation) budesonide-formoterol [Symbicort] 160-4.5 mcg/actuation Hfa Aerosol Inhaler 2 puff INHALATION Q12H chlorthalidone 50 mg tablet 50 mg PO QAM losartan 100 mg tablet 100 mg PO QAM montelukast 10 mg tablet 10 mg PO DAILY hydroxychloroquine 200 mg tablet 200 mg PO BID gabapentin 100 mg capsule 300 mg PO TID PRN (Reason: Pain) isosorbide mononitrate 60 mg tablet extended release 24 hr 60 mg PO DAILY nitroglycerin [Nitrostat] 0.4 mg Tablet, Sublingual 0.4 mg SUBLINGUAL Q5M PRN (Reason: Chest Pain) Rx Instructions: do not exceed 3 doses per episode docusate sodium [Colace] 100 mg capsule 100 mg PO BID PRN (Reason: stool softener) promethazine 25 mg tablet 25 mg PO Q6H PRN (Reason: nausea and vomiting) Qty: 20 0RF methocarbamol 500 mg tablet 1,000 mg PO Q8H Qty: 30 0RF diclofenac sodium 50 mg tablet,delayed release (DR/EC) 50 mg PO Q12H PRN (Reason: pain) Qty: 20 0RF Naprosyn 500 mg tablet 500 mg PO BID PRN (Reason: pain) Qty: 20 0RF Discharge Orders: Discharge ED (Routine); Ordered 03/20/23 Ordered By: Solomon Beltran Referrals: Alpesh Garcia MD [Primary Care Provider] - 7-10 days Discharge Diet: Usual diet Discharge Activity: Increase activity as tolerated Patient Instructions: Opioid Safety, Pain Management Activity Restrictions/Additional Instructions: As we discussed your back hip and knee pain are likely due to inflammation of your sciatic nerve and other low back tissues. We recommend stretching exerc ises, using ice pack to the low back area as well as taking the medications we have provided to help improve your symptoms. It is important to be mindful of your low back when doing lifting and twisting and turning and bending activities. If your symptoms do not improve as we expect or if they worsen or you develop numbness weakness or difficulty controlling bowel or bladder or other concerns return to this or the nearest emergency department immediately. Stand Alone Forms: Work/School Release Coding Level of Care Code ED Commercial Announcer for 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
[2023-03-20] MEDS: methocarbamol 750 mg Tablet PO (17:32)
[2023-03-20] MEDS: ketorolac 30 mg/mL INJ 15 MG IM (17:32)
[2023-03-20 18:15] VITALS: BP 191/97; PULSE 94; O2SAT 95
[2023-03-20 18:41] VITALS: BP 170/81; PULSE 84; O2SAT 95
== END 2023-03-20 18:43 | disposition home or self-care (01) ==
PROVIDERS: Emergency Provider Emergency Medicine; PCP Family Medicine
DX: M54.50 Low back pain, unspecified (principal); Z79.82 Long term (current) use of aspirin; Z77.22 Contact with and (suspected) exposure to environmental tobacco smoke (acute) (chronic); J44.9 Chronic obstructive pulmonary disease, unspecified; I10 Essential (primary) hypertension
CPT/HCPCS: 96372; 99284; J1885

== ENCOUNTER → 2023-03-24 11:18 | Outpatient (BNVA) | payer MEDICAID, SELFPAY | PROVIDERS: PCP Family Medicine; Visit Provider Nurse Practitioner | DX: F33.2 Major depressive disorder, recurrent severe without psychotic features (principal); Z79.899 Other long term (current) drug therapy | CPT/HCPCS: 80061; 83036 ==

== ENCOUNTER 2023-03-28 23:23 | Emergency (ER) | payer MEDICAID, SELFPAY ==
[2023-03-27 11:42] VITALS: BMI 42.0
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
[2023-03-28 23:30] VITALS: BP 198/100; PULSE 87; RESP 16; TEMP 36.6; O2SAT 98
--- NOTE | 2023-03-28 23:40 | ED_ITS ---
HPI - Extremity Problem General: Chief complaint: Extremity Injury, Upper Stated complaint: Rt Wrist Injury\Legs Gave Out Time Seen by Provider: 03/28/23 23:36 Source: patient Mode of arrival: ambulatory Limitations: no limitations History of Present Illness: 52-year-old female who states that she had tripped and her legs gave out on her today and she fell onto her right wrist she has some wrist pain over the radial aspect of her wrist no deformity she rates the pain a 4 out of 10 denies any pain elsewhere denies hitting her head. Associated symptoms: Deny chest pain, fever(s) or rash Review of Systems Const: Denies: fever(s), chills, body aches or change in appetite ENMT: Denies: throat pain or dental pain Card: Denies: chest pain Resp: Denies: dyspnea GI: Denies: abdominal pain, nausea, vomiting or diarrhea Musc: Reports: extremity pain; Denies: neck pain or back pain Skin/Breast: Denies: rash Neuro: Denies: headache(s) PFSH ED PFSH: Medical History Abnormal reflex COPD (chronic obstructive pulmonary disease) GERD (gastroesophageal reflux disease) Helicobacter pylori gastritis HTN (hypertension) Neck pain Psychiatric care Psychiatric care [facility] Surgical History History of cholecystectomy History of esophagogastroduodenoscopy Hx of section Hx of colonoscopy 2020 [facility] Hx of hysterectomy Family History Family/Other Cancer Diabetes Father Diabetes Hyperlipidemia Hypertension Stroke Mother Hypertension Stroke CAD (coronary artery disease) Rheumatoid arthritis Other Major depressive disorder, recurrent severe without psychotic features Panic disorder [episodic paroxysmal anxiety] Post-traumatic stress disorder, chronic Social History Smoking and tobacco status: never smoked Second hand smoke exposure: Yes Alcohol intake: never Substance/Drug Use: never Physical Exam Const: COMMON NORMALS: no acute distress and patient oriented x3 HENMT: COMMON NORMALS: normocephalic HEAD & SCALP: normocephalic Eye: COMMON NORMALS: conjunctivae normal CONJUNCTIVA: Yes conjunctivae normal Neck/C-Spine: COMMON NORMALS: supple Chest: COMMONS NORMALS: normal inspection of the chest Resp: COMMON NORMALS: normal respiratory effort Cardio: COMMON NORMALS: regular rate RATE: regular rate GI: INSPECTION: Yes normal to inspection Extremity: OTHER: Slight tenderness over right wrist no obvious deformity Neuro: COMMON NORMALS: patient oriented x3 Psych: COMMON NORMALS: mental status grossly normal Skin: COMMON NORMALS: no rashes or lesions noted GENERAL SKIN EXAM: no rashes or lesions noted Course Vital Signs: Vital signs: Vital Signs Temperature 97.9 F 03/28/23 23:30 Pulse Rate 87 03/28/23 23:30 Respiratory Rate 16 03/28/23 23:30 Blood Pressure 198/100 03/28/23 23:30 Pulse Oximetry 98 03/28/23 23:30 Oxygen Delivery Me thod Room Air 03/28/23 23:30 MDM - Extremity (Nontraumatic) Medical Decision Making Patient presents here with a right wrist sprain x-ray here shows no fracture she is well-appearing here no other injuries she is stable for discharge. Discharge Plan Discharge Patient Disposition: Home Clinical Impression: Sprain and strain of wrist Condition: Stable Prescriptions: No Action (DME) night splint to left See Rx Instructions .Route .MEDSUPPLY Qty: 1 0RF Rx Instructions: As directed pantoprazole [Protonix] 40 mg tablet,delayed release (DR/EC) 40 mg PO BID 42 Days Qty: 84 0RF (DME) Cam Boot to the left See Rx Instructions .Route .MEDSUPPLY Qty: 1 0RF Rx Instructions: As directed metoprolol tartrate 50 mg tablet 50 mg PO BID Qty: 180 3RF amlodipine 10 mg tablet 10 mg PO BEDTIME dicyclomine 20 mg tablet 20 mg PO QID Qty: 120 1RF hydrocodone-acetaminophen 7.5-325 mg tablet 1 tab PO TID PRN hydralazine 100 mg tablet 100 mg PO TID Qty: 300 3RF (DME) blood pressure monitor Kit See Rx Instructions .Route Qty: 1 0RF Rx Instructions: As directed diclofenac sodium [Voltaren Arthritis Pain] 1 % gel 4 g topical QID PRN (Reason: Pain) Qty: 100 0RF Rx Instructions: apply to single knee, ankle, foot; for foot includes sole/toes/top of foot (DME) Night Splint See Rx Instructions .Route .MEDSUPPLY Qty: 1 0RF Rx Instructions: As directed by HOME (DME) Night Splint See Rx Instructions .Route .MEDSUPPLY Qty: 1 0RF Rx Instructions: As directed diazepam [Valium] 5 mg tablet 5 mg PO ONCE PRN (Reason: anxiety) 1 Days Qty: 2 0RF topiramate [Topamax] 100 mg tablet 100 mg PO DAILY 90 Days Qty: 90 3RF Rx Instructions: Take 1 tablet daily clonazepam 0.5 mg tablet 0.5 mg PO BID PRN (Reason: anxiety/panic) Qty: 60 0RF nitroglycerin 0.6 mg/hr patch 24 hour See Rx Instructions .ROUTE .COMPLEX Qty: 30 1RF Dose Instruction: APPLY 1 PATCH NEEDED FOR PLANTAR FASCIA PAIN, ALLOW NITRATE FREE INTERVAL OF 10-12HRS/24HR PERIOD Rx Instructions: APPLY 1 PATCH NEEDED FOR PLANTAR FASCIA PAIN, ALLOW NITRATE FREE INTERVAL OF 10-12HRS/24HR PERIOD trazodone 150 mg tablet See Rx Instructions .ROUTE .COMPLEX Qty: 30 1RF Dose Instruction: TAKE 1 TABLET BY MOUTH AT BEDTIME Rx Instructions: TAKE 1 TABLET BY MOUTH AT BEDTIME prazosin 5 mg capsule See Rx Instructions .ROUTE .COMPLEX Qty: 30 1RF Dose Instruction: TAKE 1 CAPSULE BY MOUTH EVERYDAY AT BEDTIME Rx Instructions: TAKE 1 CAPSULE BY MOUTH EVERYDAY AT BEDTIME quetiapine 300 mg tablet extended release 24 hr See Rx Instructions .ROUTE .COMPLEX Qty: 30 1RF Dose Instruction: TAKE 1 TABLET BY MOUTH EVERYDAY AT BEDTIME Rx Instructions: TAKE 1 TABLET BY MOUTH EVERYDAY AT BEDTIME fluoxetine 40 mg capsule See Rx Instructions .ROUTE .COMPLEX Qty: 60 1RF Dose Instruction: TAKE 2 CAPSULES BY MOUTH IN THE MORNING Rx Instructions: TAKE 2 CAPSULES BY MOUTH IN THE MORNING albuterol sulfate 90 mcg/actuation Hfa Aerosol Inhaler 1 - 2 puff INHALATION Q4H PRN (Reason: Shortness Of Breath) aspirin 81 mg Tablet,Chewable 81 mg PO QAM ipratropium-albuterol 0.5 mg-3 mg(2.5 mg base)/3 mL solution for nebulization 3 ml INHALATION DAILY PRN (Reason: Shortness Of Breath) polyethylene glycol 3350 [Miralax] 17 gram/dose powder 17 g PO DAILY PRN (Reason: Constipation) budesonide-formoterol [Symbicort] 160-4.5 mcg/actuation Hfa Aerosol Inhaler 2 puff INHALATION Q12H chlorthalidone 50 mg tablet 50 mg PO QAM losartan 100 mg tablet 100 mg PO QAM montelukast 10 mg tablet 10 mg PO DAILY hydroxychloroquine 200 mg tablet 200 mg PO BID gabapentin 100 mg capsule 300 mg PO TID PRN (Reason: Pain) isosorbide mononitrate 60 mg tablet extended release 24 hr 60 mg PO DAILY nitroglycerin [Nitrostat] 0.4 mg Tablet, Sublingual 0.4 mg SUBLINGUAL Q5M PRN (Reason: Chest Pain) Rx Instructions: do not exceed 3 doses per episode docusate sodium [Colace] 100 mg capsule 100 mg PO BID PRN (Reason: stool softener) promethazine 25 mg tablet 25 mg PO Q6H PRN (Reason: nausea and vomiting) Qty: 20 0RF methocarbamol 500 mg tablet 1,000 mg PO Q8H Qty: 30 0RF diclofenac sodium 50 mg tablet,delayed release (DR/EC) 50 mg PO Q12H PRN (Reason: pain) Qty: 20 0RF methocarbamol 750 mg tablet 750 mg PO TID Qty: 14 0RF Naprosyn 500 mg tablet 500 mg PO BID PRN (Reason: pain) Qty: 20 0RF Discharge Orders: Discharge ED (Routine); Ordered 03/28/23 Ordered By: Leon Moura Referrals: Alpesh Garcia MD [Primary Care Provider] - 1-3 days Discharge Diet: Advance as tolerated Discharge Activity: Resume usual activity Patient Instructions: Wrist Sprain (ED) Coding Level of Care Code ED Desizing Machine Offbearer for 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
[2023-03-28] MEDS: naproxen 500 mg Tablet PO (23:59)
[2023-03-29 00:01] VITALS: PULSE 83; RESP 16; O2SAT 99
[2023-03-29 00:04] VITALS: BP 203/122
== END 2023-03-29 00:06 | disposition home or self-care (01) ==
PROVIDERS: Emergency Provider Emergency Medicine; PCP Family Medicine
DX: S63.501A Unspecified sprain of right wrist, initial encounter (principal); S66.911A Strain of unspecified muscle, fascia and tendon at wrist and hand level, right hand, initial encounter; Z79.82 Long term (current) use of aspirin; Z77.22 Contact with and (suspected) exposure to environmental tobacco smoke (acute) (chronic); J44.9 Chronic obstructive pulmonary disease, unspecified; I10 Essential (primary) hypertension; W01.0XXA Fall on same level from slipping, tripping and stumbling without subsequent striking against object, initial encounter
CPT/HCPCS: 73110; 99283

== ENCOUNTER 2023-04-07 09:00 | Outpatient (CLI) | payer MEDICAID, SELFPAY ==
[2023-03-27 11:42] VITALS: BMI 42.0
--- NOTE | 2023-04-07 | MR_ITS ---
WS: [id number] MRI LEFT FOOT without CONTRAST. COMPARISON: Radiograph 03/08/2023. Prior MRI 07/19/2021 Multiplanar, multisequence imaging is performed without contrast. History: Evaluate for plantar fascial tear. Pain plantar and dorsal surface of the foot. No recent in jury. Mild hallux disease. No marrow edema. No fractures or malalignment. Lisfranc ligament is normal. No s ignificant edema. Visualized portions of the plantar fascia are normal. The attachment of the plantar fascia is not included as only the foot MRI was requested. No edema. Visualized peroneal tendons and the tendon sheaths are normal. MR/MR foot LT wo con* [id number] IMPRESSION: 1. No marrow edema or fractures. 2. No soft tissue edema. 3. Normal Lisfranc joint.
== END 2023-04-07 09:01 | disposition home or self-care (01) ==
PROVIDERS: PCP Family Medicine; Visit Provider Podiatrist Foot & Ankle Surgery
DX: M79.672 Pain in left foot (principal)
CPT/HCPCS: 73718

== ENCOUNTER → 2023-04-08 08:04 | Outpatient (BNVA) | payer MEDICAID, SELFPAY ==
[2023-03-27 11:42] VITALS: BMI 42.0
== END ==
PROVIDERS: PCP Family Medicine; Visit Provider Nurse Practitioner Family
DX: M25.551 Pain in right hip (principal); M54.31 Sciatica, right side
CPT/HCPCS: 73502; 99214

== ENCOUNTER 2023-04-09 11:32 | Outpatient (CLI) | payer MEDICAID, SELFPAY ==
[2023-03-27 11:42] VITALS: BMI 42.0
--- NOTE | 2023-04-09 11:56 | XR_ITS ---
WS: [id number] EXAMINATION: XR wrist RT min 3V* [id number] REASON FOR EXAM: Sprain of wrist COMPARISON: 03/28/2023 ORDER DATE: 04/09/2023 12:05 PM FINDINGS: There is no sign of any acute osseous or articular abnormality. There are no specific soft tissue abn ormalities. XR/XR wrist RT min 3V* [id number] IMPRESSION: No acute change
== END 2023-04-09 11:33 | disposition home or self-care (01) ==
LOC: RAD 11:34
PROVIDERS: PCP Family Medicine; Visit Provider Family Medicine
DX: S63.501A Unspecified sprain of right wrist, initial encounter (principal); X58.XXXA Exposure to other specified factors, initial encounter
CPT/HCPCS: 73110

== ENCOUNTER 2023-04-15 11:15 | Emergency (ER) | payer MEDICAID, SELFPAY ==
[2023-03-27 11:42] VITALS: BMI 42.0
[2023-04-15] VITALS (8 sets, daily range): BP systolic 170–197; BP diastolic 82–144; PULSE 67–84; RESP 14–29; TEMP 36.6; O2SAT 96–99; BMI 42.5
--- NOTE | 2023-04-15 11:17 | ECG_ITS ---
[facility] Test Date: 2023-04-15 Pat Name: Nani Pryor Department: Room: Gender: Female It Support Analyst: : 1970 Requested By: Leon Moura Order Number: [id number] Jaclyn MD: Tracy Bo M.D. Measurements Intervals Eliot Rate: 75 P: 20 VA: 186 QRS: 23 QRSD: 97 T: 14 QT: 408 QTc: 458 Interpretive Statements SINUS RHYTHM Compared to ECG 02/20/2023 15:20:02 T-wave abnormality no longer present Electronically Signed On 04-17-2023 9:58:50 CDT by Tracy Bo M.D. [id number]
--- NOTE | 2023-04-15 11:17 | XR_ITS ---
WS: [id number] Exam: XR chest 1V portable [id number] Date/Time of Exam: 04/15/2023 11:19 AM Reason For Exam: sob Comparison 01/22/2023. Findings: The lungs are clear and fully expanded. Costophrenic angles are sharp. No infiltrates. Bronchovascula r relief appears normal. Cardiac silhouette is unremarkable. Bony elements are intact. XR/XR chest 1V portable [id number] IMPRESSION: Unremarkable chest radiograph.
--- NOTE | 2023-04-15 11:48 | ED_ITS ---
HPI - URI/Sore Throat General: Chief Complaint: Shortness of Breath/Dyspnea Stated Complaint: low O2, sob Time Seen by Provider: 04/15/23 11:38 History of Present Illness: Patient is a 52-year-old female comes to the ED with upper respiratory symptoms. Patient has a history of COPD, hypertension, GERD and Schatzki's ring. Patient says her symptoms started yesterday. She is having her dry cough, and nasal drainage and congestion and a sore throat. She states that her significant other found some mold in their house and thinks that might be causing her symptoms. She had an episode of emesis yesterday but denies any nausea or vomiting today. Endorses feeling little short of breath as well since symptoms started. Patient also endorses having some tenderness and pain in her bladder along with dysuria. Denies any hematuria. Endorses a headache. She denies any chest pain, fevers, chills. Associated symptoms: Reports headache(s) and nasal congestion; Deny abdominal pain, chills, chest pain, diarrhea, fever(s), nausea or vomiting Review of Systems Const: Denies: fever(s), chills or fatigue Eyes: Denies: change in vision or eye discomfort ENMT: Reports: throat pain, nasal discharge and nasal congestion; Denies: odynophagia Card: Denies: chest pain, palpitations, edema, swelling of feet/ankles, dyspnea on exertion or orthopnea Resp: Reports: dyspnea and non-productive cough; Denies: productive cough GI: Denies: abdominal pain, nausea, vomiting, diarrhea, constipation or hematochezia : Denies: flank pain, dysuria or hematuria Musc: Denies: neck pain, back pain or extremity swelling Skin/Breast: Denies: rash or new lesions Neuro: Reports: headache(s); Denies: numbness in extremities or weakness in extremities PFS ED PFSH: Medical History Abnormal reflex COPD (chronic obstructive pulmonary disease) GERD (gastroesophageal reflux disease) Helicobacter pylori gastritis HTN (hypertension) Neck pain Psychiatric care Psychiatric care Schatzki's ring Surgical History History of cholecystectomy History of esophagogastroduodenoscopy Hx of section Hx of colonoscopy 2020 formerly [facility] Hx of hysterectomy Family History Family/Other Cancer Diabetes Father Diabetes Hyperlipidemia Hypertension Stroke Mother Hypertension Stroke CAD (coronary artery disease) Rheumatoid arthritis Other Major depressive disorder, recurrent severe without psychotic features Panic disorder [episodic paroxysmal anxiety] Post-traumatic stress disorder, chronic Social History Smoking and tobacco status: never smoked Second hand smoke exposure: Yes Alcohol intake: never Substance/Drug Use: never Physical Exam Const: COMMON NORMALS: no acute distress, patient oriented x3 and alert GENERAL APPEARANCE: cooperative and comfortable HENMT: COMMON NORMALS: normocephalic HEAD & SCALP: normocephalic MOUTH: Normal oral and palatal mucosa present THROAT: posterior oropharynx normal and uvula midline Eye: COMMON NORMALS: Equal, round and reactive pupils present and conjunctivae normal CONJUNCTIVA: Yes conjunctivae normal PUPIL: Yes Equal, round and reactive pupils present Neck/C-Spine: COMMON NORMALS: supple GENERAL: Yes normal visual inspection Resp: COMMON NORMALS: normal respiratory effort, No retractions and No use of accessory muscles AUSCULTATION: wheezes expiratory wheezes and lower bilaterally Cardio: COMMON NORMALS: regular rate, regular rhythm, S1 normal heart sound present, S2 normal heart sound present, No gallops present (Cardio), No clicks present (Cardio), No murmurs present (Cardio) and Peripheral pulses 2+ through out RATE: regular rate RHYTHM: regular rhythm HEART SOUNDS: S1 normal heart sound present and S2 normal heart sound present PERIPHERAL PULSES: Peripheral pulses 2+ throughout GI: COMMON NORMALS: Normal to inspection, nondistended, normoactive bowel sounds present, Soft to palpation, non-tender and no masses PALPATION: Yes Soft to palpation : COMMON NORMALS: Yes no CVA tenderness BLADDER/KIDNEY EXAM: Yes no CVA tenderness Back/Pelvis: COMMON NORMALS: no CVA tenderness Extremity: COMMON NORMALS: normal to inspection Neuro: COMMON NORMALS: patient oriented x3, CN's II-XII intact bilaterally, moves all extremities and no focal motor deficits SENSORIUM/ORIENTATION: Yes alert COORDINATION/BALANCE: [id number] test normal SPEECH: speech normal GAIT: Yes Normal gait present MOTOR EXAM: 5/5 motor strength present throughout COORDINATION: [id number] test normal Skin: GENERAL SKIN EXAM: dry skin Course Vital Signs: Vital signs: Vital Signs Temperature 97.8 F 04/15/23 11:34 Pulse Rate 80 04/15/23 15:12 Respiratory Rate 17 04/15/23 15:12 Blood Pressure 184/82 04/15/23 15:12 Pulse Oximetry 98 04/15/23 15:12 Oxygen Delivery Me thod Room Air 04/15/23 14:09 MDM - URI/Sore Throat Medical Decision Making Patient is a 52-year-old female comes to the ED with upper respiratory symptoms. Patient has a history of COPD, hypertension, GERD and Schatzki's ring. Patient says her symptoms started yesterday. She is having her dry cough, and nasal drainage and congestion and a sore throat. She states that her significant other found some mold in their house and thinks that might be causing her symptoms. She had an episode of emesis yesterday but denies any nausea or vom iting today. Endorses feeling little short of breath as well since symptoms started. Patient also endorses having some tenderness and pain in her bladder along with dysuria. Denies any hematuria. Endorses a headache. She denies any chest pain, fevers, chills. Patient's blood pressure was elevated at 190/91 but rest of vitals were stable.. Patient appears nontoxic in no acute distress or pain. She has some mild bilateral lower lung field wheezing. Neuro exam shows no deficits. Chest x-ray shows no acute findings. EKG shows normal sinus rhythm with no ST segment elevation or depression seen. Labs are all unremarkable. Influenza, strep and COVID were all negative. Patient was given dose of hydralazine to treat BP. Patient is stable for discharge home and diagnosed with bronchitis and hypertension. She was sent home with a prescription for a steroid and antibiotic. Told to follow-up with her PCP in the next week for reevaluation. Return to ED precautions given. Patient u nderstood agree with plan. Lab Data I reviewed the patient's lab results. 04/15/23 12:28 04/15/23 12:28 Radiology Impressions Chest X-Ray 04/15/23 11:17 IMPRESSION: Unremarkable chest radiograph. Laboratory Results WBC 5.1 10^3/uL (4.0-10.0) 04/15/23 12:28 RBC 4.37 10^6/uL (4.1-5.3) 04/15/23 12:28 Hgb 11.9 g/dL (11.5-15.3) 04/15/23 12:28 Hct 38.7 % (37.0-47.0) 04/15/23 12: MCV 88.6 fl (81-99) 04/15/23 12:28 MCH 27.2 pg (28.0-34.0) L 04/15/23 12:28 MCHC 30.7 g/dL (30.0-36.0) 04/15/23 12:28 RDW 14.9 % (12.1-15.1) 04/15/23 12:28 Plt Count 287 10^3/cmm (130-400) 04/15/23 12:28 MPV 9.8 fL (7.4-10.4) 04/15/23 12:28 Neut % (Auto) 60.5 % 04/15/23 12:28 Lymph % (Auto) 27.1 % 04/15/23 12:28 Stephens % (Auto) 10.4 % 04/15/23 12:28 Eos % (Auto) 1.4 % 04/15/23 12:28 Baso % (Auto) 0.4 % 04/15/23 12:28 Neut # (Auto) 3.08 10^3/uL (1.8-7.7) 04/15/23 12:28 Lymph # (Auto) 1.4 10^3/uL (0.8-4.8) 04/15/23 12:28 Stephens # (Auto) 0.5 10^3/uL (0.2-0.9) 04/15/23 12:28 Eos # (Auto) 0.1 10^3/uL (0.0-0.8) 04/15/23 12:28 Baso # (Auto) 0.0 10^3/uL (0.0-0.1) 04/15/23 12:28 Nucleated RBC % (auto) 0 % 04/15/23 12:28 Nucleated RBCs # 0.0 /100WBC 04/15/23 12:28 Sodium 136 mmol/L (136-145) 04/15/23 12:28 Potassium 3.7 mmol/L (3.5-5.1) 04/15/23 12:28 Chloride 99 mmol/L (98-107) 04/15/23 12:28 Carbon Dioxide 27 mmol/L (22-29) 04/15/23 12:28 Anion Gap 13.7 (5-19) 04/15/23 12:28 BUN 9 mg/dL (6-20) 04/15/23 12:28 Creatinine 0.5 mg/dL (0.5-0.9) 04/15/23 12:28 GFR Calculation 130.1 mL/min (90-130) H 04/15/23 12:28 Glucose 82 mg/dL (65-115) 04/15/23 12:28 Calculated Osmolality 280 mOsm/kg (285-295) L 04/15/23 12:28 Calcium 8.8 mg/dL (8.5-10.5) 04/15/23 12:28 Total Bilirubin 1.0 mg/dL (0.15-1.2) 04/15/23 12:28 AST 12 U/L (0-32) 04/15/23 12:28 ALT 13 U/L (0-33) 04/15/23 12:28 Alkaline Phosphatase 106 U/L (35-105) H 04/15/23 12:28 Total Protein 6.9 g/dL (6.6-8.7) 04/15/23 12:28 Albumin 4.1 g/dL (3.5-5.2) 04/15/23 12:28 Globulin 2.8 g/dL (1.3-4.6) 04/15/23 12:28 Urine Color Colorless (Yellow) 04/15/23 13:00 Urine Appearance Clear (CLEAR) 04/15/23 13:00 Urine pH 7 (5-7) 04/15/23 13:00 Ur Specific [place] 1.010 (1.005-1.030) 04/15/23 13:00 Urine Protein Neg (Negative) 04/15/23 13:00 Urine Glucose (UA) Norm (Normal) 04/15/23 13:00 Urine Ketones Negative (Negative) 04/15/23 13:00 Urine Blood Neg (Negative) 04/15/23 13:00 Urine Nitrate Negative (Negative) 04/15/23 13:00 Urine Bilirubin Neg (Negative) 04/15/23 13:00 Urine Urobilinogen Norm mg/dL (Negative) 04/15/23 13:00 Ur Leukocyte Esterase Negative (Negative) 04/15/23 13:00 Influenza Type A Ag negative (Negative) 04/15/23 12:04 Influenza Type B Ag negative (Negative) 04/15/23 12:04 SARS-CoV-2 Ag (Rapid) negative (Negative) 04/15/23 12:04 Group A Strep Rapid Negative (Negative) 04/15/23 12:04 EKG Data EKG 1: EKG interpretation date: 04/15/23 Interpretation: Sinus rhythm, no ST segment elevation or depression seen, 75 bpm Discharge Plan Discharge Patient Disposition: Home Clinical Impression: Bronchitis Hypertension Qualifiers: Hypertension type: unspecified Qualified Code(s): I10 - Essential (primary) hypertension Condition: Stable Prescriptions: New doxycycline hyclate 100 mg capsule 100 mg PO BID 10 Days Qty: 20 0RF Medrol (Miguel) 4 mg tablets,dose pack See Rx Instructions .ROUTE .COMPLEX Qty: 21 0RF Rx Instructions: orally per package directions No Action (DME) night splint to left See Rx Instructions .Route .MEDSUPPLY Qty: 1 0RF Rx Instructions: As directed pantoprazole [Protonix] 40 mg tablet,delayed release (DR/EC) 40 mg PO BID 42 Days Qty: 84 0RF (DME) [place] to the left See Rx Instructions .Route .MEDSUPPLY Qty: 1 0RF Rx Instructions: As directed metoprolol tartrate 50 mg tablet 50 mg PO BID Qty: 180 3RF amlodipine 10 mg tablet 10 mg PO BEDTIME dicyclomine 20 mg tablet 20 mg PO QID Qty: 120 1RF hydrocodone-acetaminophen 7.5-325 mg tablet 1 tab PO TID PRN hydralazine 100 mg tablet 100 mg PO TID Qty: 300 3RF (DME) blood pressure monitor Kit See Rx Instructions .Route Qty: 1 0RF Rx Instructions: As directed gabapentin 300 mg capsule 300 mg PO TID Qty: 90 0RF Rx Instructions: patient can take 600mg at night diclofenac sodium [Voltaren Arthritis Pain] 1 % gel 4 g topical QID PRN (Reason: Pain) Qty: 100 0RF Rx Instructions: apply to single knee, ankle, foot; for foot includes sole/toes/top of foot (DME) Night Splint See Rx Instructions .Route .MEDSUPPLY Qty: 1 0RF Rx Instructions: As directed by HOME (DME) Night Splint See Rx Instructions .Route .MEDSUPPLY Qty: 1 0RF Rx Instructions: As directed diazepam [Valium] 5 mg tablet 5 mg PO ONCE PRN (Reason: anxiety) 1 Days Qty: 2 0RF topiramate [Topamax] 100 mg tablet 100 mg PO DAILY 90 Days Qty: 90 3RF Rx Instructions: Take 1 tablet daily clonazepam 0.5 mg tablet 0.5 mg PO BID PRN (Reason: anxiety/panic) Qty: 60 0RF nitroglycerin 0.6 mg/hr patch 24 hour See Rx Instructions .ROUTE .COMPLEX Qty: 30 1RF Dose Instruction: APPLY 1 PATCH NEEDED FOR PLANTAR FASCIA PAIN, ALLOW NITRATE FREE INTERVAL OF 10-12HRS/24HR PERIOD Rx Instructions: APPLY 1 PATCH NEEDED FOR PLANTAR FASCIA PAIN, ALLOW NITRATE FREE INTERVAL OF 10-12HRS/24HR PERIOD trazodone 150 mg tablet See Rx Instructions .ROUTE .COMPLEX Qty: 30 1RF Dose Instruction: TAKE 1 TABLET BY MOUTH AT BEDTIME Rx Instructions: TAKE 1 TABLET BY MOUTH AT BEDTIME prazosin 5 mg capsule See Rx Instructions .ROUTE .COMPLEX Qty: 30 1RF Dose Instruction: TAKE 1 CAPSULE BY MOUTH EVERYDAY AT BEDTIME Rx Instructions: TAKE 1 CAPSULE BY MOUTH EVERYDAY AT BEDTIME quetiapine 300 mg tablet extended release 24 hr See Rx Instructions .ROUTE .COMPLEX Qty: 30 1RF Dose Instruction: TAKE 1 TABLET BY MOUTH EVERYDAY AT BEDTIME Rx Instructions: TAKE 1 TABLET BY MOUTH EVERYDAY AT BEDTIME fluoxetine 40 mg capsule See Rx Instructions .ROUTE .COMPLEX Qty: 60 1RF Dose Instruction: TAKE 2 CAPSULES BY MOUTH IN THE MORNING Rx Instructions: TAKE 2 CAPSULES BY MOUTH IN THE MORNING albuterol sulfate 90 mcg/actuation Hfa Aerosol Inhaler 1 - 2 puff INHALATION Q4H PRN (Reason: Shortness Of Breath) aspirin 81 mg Tablet,Chewable 81 mg PO QAM ipratropium-albuterol 0.5 mg-3 mg(2.5 mg base)/3 mL solution for nebulization 3 ml INHALATION DAILY PRN (Reason: Shortness Of Breath) polyethylene glycol 3350 [Miralax] 17 gram/dose powder 17 g PO DAILY PRN (Reason: Constipation) budesonide-formoterol [Symbicort] 160-4.5 mcg/actuation Hfa Aerosol Inhaler 2 puff INHALATION Q12H chlorthalidone 50 mg tablet 50 mg PO QAM losartan 100 mg tablet 100 mg PO QAM montelukast 10 mg tablet 10 mg PO DAILY hydroxychloroquine 200 mg tablet 200 mg PO BID isosorbide mononitrate 60 mg tablet extended release 24 hr 60 mg PO DAILY nitroglycerin [Nitrostat] 0.4 mg Tablet, Sublingual 0.4 mg SUBLINGUAL Q5M PRN (Reason: Chest Pain) Rx Instructions: do not exceed 3 doses per episode docusate sodium [Colace] 100 mg capsule 100 mg PO BID PRN (Reason: stool softener) promethazine 25 mg tablet 25 mg PO Q6H PRN (Reason: nausea and vomiting) Qty: 20 0RF methocarbamol 500 mg tablet 1,000 mg PO Q8H Qty: 30 0RF diclofenac sodium 50 mg tablet,delayed release (DR/EC) 50 mg PO Q12H PRN (Reason: pain) Qty: 20 0RF methocarbamol 750 mg tablet 750 mg PO TID Qty: 14 0RF Naprosyn 500 mg tablet 500 mg PO BID PRN (Reason: pain) Qty: 20 0RF Discharge Orders: Discharge ED (Routine); Ordered 04/15/23 Ordered By: Jason Ruff Referrals: Alpesh Garcia MD [Primary Care Provider] - Discharge Diet: Regular Discharge Activity: Increase activity as tolerated Patient Instructions: Acute Bronchitis (ED) Activity Restrictions/Additional Instructions: Follow-up with medical provider as directed in the next 5 to 7 days for reevaluation. Take medications as prescribed. Return to the ER or your medical provider if condition worsens. Please read and understand discharge instructions. Thank you for choosing [facility] for your healthcare needs today. Please realize this is an emergency room and that we are providing you with a medical screening exam and this may not be complete and all inclusive of all the testing and or work up that you may need to determine your ailment or severity of your illness. It is very important that you follow up as instructed or that you return to the Emergency Department should you have concerns or if your condition changes or worsens in any way. 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
[2023-04-15] MEDS: ipratropium-albuterol 3 mL Neb INHALATION (12:16)
[2023-04-15 12:29] LABS: Rapid Strep A Test Negative (Negative)
[2023-04-15 12:32] LABS: Influenza A by IFA negative (Negative); Influenza B by IFA negative (Negative); SARS Covid-2 Antigen negative (Negative)
[2023-04-15 12:41] LABS: Basophils % 0.4 %; Eosinophils # 0.1 10^3/uL (0.0-0.8); Eosinophils % 1.4 %; Hematocrit 38.7 % (37.0-47.0); Hemoglobin 11.9 g/dL (11.5-15.3); Lymphocytes # 1.4 10^3/uL (0.8-4.8); Lymphocytes % 27.1 %; Mean Corpuscular HGB Conc 30.7 g/dL (30.0-36.0); Mean Corpuscular Hemoglobin 27.2 pg (28.0-34.0); Mean Corpuscular Volume 88.6 fl (81-99); Mean Platelet Volume 9.8 fL (7.4-10.4); Monocytes # 0.5 10^3/uL (0.2-0.9); Monocytes % 10.4 %; Neutrophils # 3.08 10^3/uL (1.8-7.7); Neutrophils % 60.5 %; Nucleated Red Blood Cells % 0 %; Platelet Count 287 10^3/cmm (130-400); Red Blood Count 4.37 10^6/uL (4.1-5.3); Red Cell Distribution Width 14.9 % (12.1-15.1); White Blood Count 5.1 10^3/uL (4.0-10.0)
[2023-04-15] MEDS: methylPREDNISolone (DEPO) 80 MG/ML INJ 1 mL IM (12:41)
[2023-04-15] MEDS: ketorolac 30 mg/mL INJ IVP (12:42)
[2023-04-15 13:01] LABS: Alanine Aminotransferase 13 U/L (0-33); Albumin Level 4.1 g/dL (3.5-5.2); Alkaline Phosphatase 106 U/L (35-105); Anion Gap 13.7 (5-19); Aspartate Amino Transferase 12 U/L (0-32); Blood Urea Nitrogen 9 mg/dL (6-20); Calcium 8.8 mg/dL (8.5-10.5); Carbon Dioxide 27 mmol/L (22-29); Chloride 99 mmol/L (98-107); Globulin 2.8 g/dL (1.3-4.6); Glomerular Filtration Rate 130.1 mL/min (90-130); Glucose 82 mg/dL (65-115); Osmolality Calculated 280 mOsm/kg (285-295); Potassium 3.7 mmol/L (3.5-5.1); Sodium 136 mmol/L (136-145); Total Protein 6.9 g/dL (6.6-8.7)
[2023-04-15 13:24] LABS: Add Urine Microscopic? NO; Charge for UA Resulting for Rev
[2023-04-15 13:39] LABS: Bilirubin Urine Neg (Negative); Blood Urine Neg (Negative); Glucose Urine UA Norm (Normal); Ketones Urine Negative (Negative); Nitrate Urine Negative (Negative); Protein Urine Neg (Negative); Urine Appearance Clear (CLEAR); Urine Color Colorless (Yellow); pH Urine 7 (5-7)
[2023-04-15 13:40] LABS: Leukocyte Esterase Urine Negative (Negative); Urobilinogen Urine Norm (Negative)
[2023-04-15] MEDS: HYDROcodone-acetaminophen 7.5-325 mg Tablet 1 TAB PO (14:08)
[2023-04-15] MEDS: hyDRALAzine 25 mg Tablet PO (14:22)
== END 2023-04-15 15:13 | disposition home or self-care (01) ==
PROVIDERS: Emergency Provider Physician Assistant; PCP Family Medicine
DX: J40 Bronchitis, not specified as acute or chronic (principal); I10 Essential (primary) hypertension; Z79.82 Long term (current) use of aspirin; Z20.822 Contact with and (suspected) exposure to COVID-19; Z77.22 Contact with and (suspected) exposure to environmental tobacco smoke (acute) (chronic); J44.9 Chronic obstructive pulmonary disease, unspecified
CPT/HCPCS: 36415; 71045; 80053; 81003; 85025; 87081; 87426; 87804; 87880; 93005; 94640; 96372; 96374; 99285; J1040; J1885

== ENCOUNTER 2023-04-23 16:47 | Emergency (ER) | payer MEDICAID, SELFPAY ==
[2023-03-27 11:42] VITALS: BMI 42.0
--- NOTE | 2023-04-23 16:49 | XR_ITS ---
WS: [id number] XR wrist RT min 3V* [id number] REASON FOR EXAM: pain FINDINGS: No fracture or bone lesion. Radiocarpal joint is unremarkable. Prominent interval between the scaphoid and lunate. No soft tissue abnormality. XR/XR wrist RT min 3V* [id number] IMPRESSION: No fracture. Prominent scapholunate interval. This likely represents normal variation. Poten tially this could indicate scapholunate ligament injury. If pain persists recom mend imaging of the opposite wrist for comparison of the scapholunate interval.
[2023-04-23 17:18] VITALS: PULSE 85; RESP 16; TEMP 36.7; O2SAT 94; BMI 42.2
--- NOTE | 2023-04-23 17:54 | W.ED.EXTPRO ---
HPI - Extremity Problem General: Chief complaint: Extremity Injury, Upper Stated complaint: right wrist pain Time Seen by Provider: 04/23/23 17:23 History of Present Illness: Patient is a 52-year-old female who comes to the ED with right wrist pain. Patient was seen here in the ED back on March 28 after a fall and x-rays showed no fracture and she was diagnosed with a right wrist sprain and strain. Patient denies any reoccurring injury since fall on March 28 but says she still having a lot of right wrist pain that radiates into her thumb. She rates her pain currently a 7 out of 10. She says any movement with her wrist causes worsening pain. She says pain does radiate into her hand and up her forearm. Associated symptoms: Deny chest pain, fever(s) or rash Review of Systems Const: Denies: fever(s), chills or fatigue Eyes: Denies: change in vision or eye discomfort ENMT: Denies: throat pain, odynophagia, nasal discharge or nasal congestion Card: Denies: chest pain, palpitations, edema, swelling of feet/ankles, dyspnea on exertion or orthopnea Resp: Denies: dyspnea, productive cough or non-productive cough GI: Denies: abdominal pain, nausea, vomiting, diarrhea, constipation or hematochezia : Denies: flank pain, dysuria or hematuria Musc: Reports: extremity pain (Right wrist); Denies: neck pain, back pain or extremity swelling Skin/Breast: Denies: rash or new lesions Neuro: Denies: headache(s), numbness in extremities or weakness in extremities [facility] ED PFSH: Medical History Abnormal reflex COPD (chronic obstructive pulmonary disease) GERD (gastroesophageal reflux disease) Helicobacter pylori gastritis HTN (hypertension) Neck pain Psychiatric care Psychiatric care Jemsandro patel Surgical History History of cholecystectomy History of esophagogastroduodenoscopy Hx of section Hx of colonoscopy 2020 [facility] Hx of hysterectomy Family History Family/Other Cancer Diabetes Father Diabetes Hyperlipidemia Hypertension Stroke Mother Hypertension Stroke CAD (coronary artery disease) Rheumatoid arthritis Other Major depressive disorder, recurrent severe without psychotic features Panic disorder [episodic paroxysmal anxiety] Post-traumatic stress disorder, chronic Social History Smoking and tobacco status: never smoked Second hand smoke exposure: Yes Alcohol intake: never Substance/Drug Use: never Physical Exam Const: COMMON NORMALS: patient oriented x3 HENMT: COMMON NORMALS: normocephalic HEAD & SCALP: normocephalic MOUTH: Normal oral and palatal mucosa present THROAT: posterior oropharynx normal and uvula midline Neck/C-Spine: COMMON NORMALS: supple GENERAL: Yes normal visual inspection Resp: COMMON NORMALS: normal respiratory effort, No retractions, No use of accessory muscles and clear to auscultation bilaterally AUSCULTATION: clear to auscultation bilaterally Cardio: COMMON NORMALS: regular rate, regular rhythm, S1 normal heart sound present, S2 normal heart sound present, No gallops present (Cardio), No clicks present (Cardio), No murmurs present (Cardio) and Peripheral pulses 2+ throughout RATE: regular rate RHYTHM: regular rhythm HEART SOUNDS: S1 normal heart sound present and S2 normal heart sound present PERIPHERAL PULSES: Peripheral pulses 2+ throughout GI: COMMON NORMALS: Normal to inspection, nondistended, normoactive bowel sounds present, Soft to palpation, non-tender and no masses PALPATION: Yes Soft to palpation : COMMON NORMALS: Yes no CVA tenderness BLADDER/KIDNEY EXAM: Yes no CVA tenderness Back/Pelvis: COMMON NORMALS: no CVA tenderness Extremity: NARRATIVE EXTREMITY EXAM: Right wrist?no deformity or ecchymosis seen. Mild swelling noted. Tenderness to radial aspect of wrist. Limited range of motion due to pain. Tenderness to thenar aspect of thumb as well. Neuro: COMMON NORMALS: patient oriented x3 GAIT: Yes Normal gait present Skin: GENERAL SKIN EXAM: dry skin Course Vital Signs: Vital signs: Vital Signs Temperature 98.0 F 04/23/23 17:18 Pulse Rate 85 04/23/23 17:18 Respiratory Rate 16 04/23/23 17:18 Pulse Oximetry 94 04/23/23 17:18 Oxygen Delivery Me thod Room Air 04/23/23 17:18 MDM - Extremity (Nontraumatic) Medical Decision Making Patient is a 52-year-old female who comes to the ED with right wrist pain. Patient was seen here in the ED back on March 28 after a fall and x-rays showed no fracture and she was diagnosed with a right wrist sprain and strain. Patient denies any reoccurring injury since fall on March 28 but says she still having a lot of right wrist pain. That radiates into her thumb. She rates her pain currently a 7 out of 10. She says any movement with her wrist causes worsening pain. She says pain does radiate into her hand and up her forearm. Vitals are stable. Right wrist?no deformity or ecchymosis seen. Mild swelling noted. Tenderness to radial aspect of wrist. Limited range of motion due to pain. Tenderness to thenar aspect of thumb. X-ray of right wrist shows no acute fractures or findings. Given patient still having considerable right wrist pain tenderness 2 weeks after injury I am putting her in a thumb spica splint and I placed an order with case management for patient to be referred to Ortho for follow-up. Patient stable for discharge home diagnosed with right wrist pain and sent home with a prescription for naproxen. Patient understood and agreed with plan. Discharge Plan Discharge Patient Disposition: Home Clinical Impression: Right wrist pain Condition: Stable Prescriptions: New Naprosyn 500 mg tablet 500 mg PO BID PRN (Reason: pain) Qty: 20 0RF No Action (DME) night splint to left See Rx Instructions .Route .MEDSUPPLY Qty: 1 0RF Rx Instructions: As directed pantoprazole [Protonix] 40 mg tablet,delayed release (DR/EC) 40 mg PO BID 42 Days Qty: 84 0RF (DME) Cam Boot to the left See Rx Instructions .Route .MEDSUPPLY Qty: 1 0RF Rx Instructions: As directed metoprolol tartrate 50 mg tablet 50 mg PO BID Qty: 180 3RF amlodipine 10 mg tablet 10 mg PO BEDTIME dicyclomine 20 mg tablet 20 mg PO QID Qty: 120 1RF hydrocodone-acetaminophen 7.5-325 mg tablet 1 tab PO TID PRN hydralazine 100 mg tablet 100 mg PO TID Qty: 300 3RF (DME) blood pressure monitor Kit See Rx Instructions .Route Qty: 1 0RF Rx Instructions: As directed gabapentin 300 mg capsule 300 mg PO TID Qty: 90 0RF Rx Instructions: patient can take 600mg at night diclofenac sodium [Voltaren Arthritis Pain] 1 % gel 4 g topical QID PRN (Reason: Pain) Qty: 100 0RF Rx Instructions: apply to single knee, ankle, foot; for foot includes sole/toes/top of foot (DME) Night Splint See Rx Instructions .Route .MEDSUPPLY Qty: 1 0RF Rx Instructions: As directed by HOME (DME) Night Splint See Rx Instructions .Route .MEDSUPPLY Qty: 1 0RF Rx Instructions: As directed diazepam [Valium] 5 mg tablet 5 mg PO ONCE PRN (Reason: anxiety) 1 Days Qty: 2 0RF topiramate [Topamax] 100 mg tablet 100 mg PO DAILY 90 Days Qty: 90 3RF Rx Instructions: Take 1 tablet daily clonazepam 0.5 mg tablet 0.5 mg PO BID PRN (Reason: anxiety/panic) Qty: 60 0RF nitroglycerin 0.6 mg/hr patch 24 hour See Rx Instructions .ROUTE .COMPLEX Qty: 30 1RF Dose Instruction: APPLY 1 PATCH NEEDED FOR PLANTAR FASCIA PAIN, ALLOW NITRATE FREE INTERVAL OF 10-12HRS/24HR PERIOD Rx Instructions: APPLY 1 PATCH NEEDED FOR PLANTAR FASCIA PAIN, ALLOW NITRATE FREE INTERVAL OF 10-12HRS/24HR PERIOD trazodone 150 mg tablet See Rx Instructions .ROUTE .COMPLEX Qty: 30 1RF Dose Instruction: TAKE 1 TABLET BY MOUTH AT BEDTIME Rx Instructions: TAKE 1 TABLET BY MOUTH AT BEDTIME prazosin 5 mg capsule See Rx Instructions .ROUTE .COMPLEX Qty: 30 1RF Dose Instruction: TAKE 1 CAPSULE BY MOUTH EVERYDAY AT BEDTIME Rx Instructions: TAKE 1 CAPSULE BY MOUTH EVERYDAY AT BEDTIME quetiapine 300 mg tablet extended release 24 hr See Rx Instructions .ROUTE .COMPLEX Qty: 30 1RF Dose Instruction: TAKE 1 TABLET BY MOUTH EVERYDAY AT BEDTIME Rx Instructions: TAKE 1 TABLET BY MOUTH EVERYDAY AT BEDTIME fluoxetine 40 mg capsule See Rx Instructions .ROUTE .COMPLEX Qty: 60 1RF Dose Instruction: TAKE 2 CAPSULES BY MOUTH IN THE MORNING Rx Instructions: TAKE 2 CAPSULES BY MOUTH IN THE MORNING albuterol sulfate 90 mcg/actuation Hfa Aerosol Inhaler 1 - 2 puff INHALATION Q4H PRN (Reason: Shortness Of Breath) aspirin 81 mg Tablet,Chewable 81 mg PO QAM ipratropium-albuterol 0.5 mg-3 mg(2.5 mg base)/3 mL solution for nebulization 3 ml INHALATION DAILY PRN (Reason: Shortness Of Breath) polyethylene glycol 3350 [Miralax] 17 gram/dose powder 17 g PO DAILY PRN (Reason: Constipation) budesonide-formoterol [Symbicort] 160-4.5 mcg/actuation Hfa Aerosol Inhaler 2 puff INHALATION Q12H chlorthalidone 50 mg tablet 50 mg PO QAM losartan 100 mg tablet 100 mg PO QAM montelukast 10 mg tablet 10 mg PO DAILY hydroxychloroquine 200 mg tablet 200 mg PO BID isosorbide mononitrate 60 mg tablet extended release 24 hr 60 mg PO DAILY nitroglycerin [Nitrostat] 0.4 mg Tablet, Sublingual 0.4 mg SUBLINGUAL Q5M PRN (Reason: Chest Pain) Rx Instructions: do not exceed 3 doses per episode docusate sodium [Colace] 100 mg capsule 100 mg PO BID PRN (Reason: stool softener) promethazine 25 mg tablet 25 mg PO Q6H PRN (Reason: nausea and vomiting) Qty: 20 0RF methocarbamol 500 mg tablet 1,000 mg PO Q8H Qty: 30 0RF diclofenac sodium 50 mg tablet,delayed release (DR/EC) 50 mg PO Q12H PRN (Reason: pain) Qty: 20 0RF methocarbamol 750 mg tablet 750 mg PO TID Qty: 14 0RF doxycycline hyclate 100 mg capsule 100 mg PO BID 10 Days Qty: 20 0RF Medrol (Miguel) 4 mg tablets,dose pack See Rx Instructions .ROUTE .COMPLEX Qty: 21 0RF Rx Instructions: orally per package directions Naprosyn 500 mg tablet 500 mg PO BID PRN (Reason: pain) Qty: 20 0RF Discharge Orders: Discharge ED (Routine); Ordered 04/23/23 Ordered By: Jason Ruff Referrals: Alpesh Garcia MD [Primary Care Provider] - Discharge Diet: Regular Discharge Activity: Limit activity as instructed Activity Restrictions/Additional Instructions: Follow-up with your orthopedic doctor at your scheduled appointment next week. Keep splint on and dry and limit activity with right wrist until seen and cleared by orthopedic doctor. Take medications as prescribed. Return to the ER or your medical provider if condition worsens. Please read and understand discharge instructions. Thank you for choosing [facility] for your healthcare needs today. Please realize this is an emergency room and that we are providing you with a medical screening exam and this may not be complete and all inclusive of all the testing and or work up that you may need to determine your ailment or severity of your illness. It is very important that you follow up as instructed or that you return to the Emergency Department should you have concerns or if your condition changes or worsens in any way. 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
[2023-04-23] MEDS: HYDROcodone-acetaminophen 7.5-325 mg Tablet 1 TAB PO (18:53)
== END 2023-04-23 18:54 | disposition home or self-care (01) ==
PROVIDERS: Emergency Provider Physician Assistant; PCP Family Medicine
DX: M25.531 Pain in right wrist (principal); Z79.82 Long term (current) use of aspirin; Z77.22 Contact with and (suspected) exposure to environmental tobacco smoke (acute) (chronic); J44.9 Chronic obstructive pulmonary disease, unspecified; I10 Essential (primary) hypertension
CPT/HCPCS: 73110; 99283

== ENCOUNTER → 2023-04-28 08:46 | Outpatient (BNVA) | payer MEDICAID, SELFPAY ==
[2023-03-27 11:42] VITALS: BMI 42.0
== END ==
PROVIDERS: PCP Family Medicine; Visit Provider Nurse Practitioner Family
DX: S69.91XD Unspecified injury of right wrist, hand and finger(s), subsequent encounter (principal); W19.XXXD Unspecified fall, subsequent encounter
CPT/HCPCS: 73110

== ENCOUNTER 2023-04-28 10:56 | Outpatient (CLI) | payer MEDICAID, SELFPAY ==
[2023-03-27 11:42] VITALS: BMI 42.0
== END 2023-04-28 10:57 | disposition home or self-care (01) ==
LOC: SPT 10:57
PROVIDERS: PCP Family Medicine; Visit Provider Nurse Practitioner Family
DX: Z46.89 Encounter for fitting and adjustment of other specified devices (principal); M25.531 Pain in right wrist; M79.672 Pain in left foot; M76.72 Peroneal tendinitis, left leg; M72.2 Plantar fascial fibromatosis
CPT/HCPCS: 97760; 99213; 99214; L3809

== ENCOUNTER → 2023-04-29 09:01 | Outpatient (BNVA) | payer MEDICAID, SELFPAY ==
[2023-03-27 11:42] VITALS: BMI 42.0
== END ==
PROVIDERS: PCP Family Medicine; Visit Provider Specialist
DX: G43.711 Chronic migraine without aura, intractable, with status migrainosus (principal); M79.7 Fibromyalgia; F43.12 Post-traumatic stress disorder, chronic
CPT/HCPCS: 99214

== ENCOUNTER 2023-05-04 16:24 | Emergency (ER) | payer MEDICAID, SELFPAY ==
[2023-03-27 11:42] VITALS: BMI 42.0
[2023-05-04 17:20] VITALS: BP 186/112; PULSE 92; RESP 18; TEMP 36.6; O2SAT 95; BMI 42.2
--- NOTE | 2023-05-04 19:05 | ED_ITS ---
HPI - Fall General: Chief Complaint: Fall Stated Complaint: Hip pain leg gave out fell and hit head Time Seen by Provider: 05/04/23 19:04 History of Present Illness: 52-year-old female comes in today with fall injury. Patient states that she was going into work when her right hip locked up on her causing her to fall hit the back of her head. Patient denies loss of consciousness but reports headache now. Patient reports this is like her normal migraine headaches. Patient repor ts 1 year ago she had an accident and since then she has had problems with her hip. Patient appears nontoxic. Patient appears in no acute distress. Patient appears in mild to moderate pain. Patient has a history of COPD, GERD, chronic pain. Review of Systems General: Reports: 10 or more systems reviewed and unremarkable except in HPI and below Musc: Reports: extremity pain (Right hip) PFSH ED PFSH: Medical History Abnormal reflex COPD (chronic obstructive pulmonary disease) GERD (gastroesophageal reflux disease) Helicobacter pylori gastritis HTN (hypertension) Neck pain Psychiatric care Psychiatric care Jem'sandro patel Surgical History History of cholecystectomy History of esophagogastroduodenoscopy Hx of section Hx of colonoscopy 2020 [facility] Hx of hysterectomy Family History Family/Other Cancer Diabetes Father Diabetes Hyperlipidemia Hypertension Stroke Mother Hypertension Stroke CAD (coronary artery disease) Rheumatoid arthritis Other Major depressive disorder, recurrent severe without psychotic features Panic disorder [episodic paroxysmal anxiety] Post-traumatic stress disorder, chronic Social History Smoking and tobacco status: never smoked Second hand smoke exposure: Yes Alcohol intake: never Substance/Drug Use: never Physical Exam Const: COMMON NORMALS: alert HENMT: COMMON NORMALS: normocephalic HEAD & SCALP: normocephalic Neck/C-Spine: COMMON NORMALS: full ROM Resp: COMMON NORMALS: normal respiratory effort Back/Pelvis: THORACIC SPINE/UPPER BACK: Yes paraspinal muscle tenderness LUMBAR SPINE/LOWER BACK: Yes paraspinal muscle tenderness Extremity: RIGHT LOWER EXTREMITY: Yes hip joint Right hip: Yes ROM Neuro: SENSORIUM/ORIENTATION: Yes alert Skin: COMMON NORMALS: turgor normal GENERAL SKIN EXAM: turgor normal Course Vital Signs: Vital signs: Vital Signs Temperature 97.9 F 05/04/23 17:20 Pulse Rate 87 05/04/23 20:41 Respiratory Rate 16 05/04/23 20:41 Blood Pressure 199/120 05/04/23 19:35 Pulse Oximetry 97 05/04/23 20:41 Oxygen Delivery Me thod Room Air 05/04/23 19:35 MDM - Fall Medical Decision Making 52-year-old female comes in today with injury to the right hip and headache. Patient reports migraine headache after her fall and injury. Patient appears nontoxic. Patient moves all extremities well. Patient is alert and oriented. Patient reports pain in the right hip. Patient was weightbearing to the hip. No obvious deformity is noted to the lower extremity. Vital signs are normal except for elevated blood pressure. Differential diagnosis includes sprain, contusion, degenerative joint disease, malingering. X-ray of the hip and pelvis were unremarkable for fracture. Patient was treated for headache with 10 mg of Reglan and 30 mg ketorolac. Patient had improvement of headache and pain. As patient described the pain it sounds like more of her chronic condition than actual new abnormality since fall. Recommended follow-up with her specialist for further evaluation of the hip and possible MRI to rule out significant abnormality such as a labral tear. Patient reported understanding and agreed with plan. Lab Data Radiology Impressions Hip/Pelvis X-Ray 05/04/23 19:16 IMPRESSION: 1. No acute findings. 2. If there is a strong clinical concern for an occult fracture, followup exam or MRI correlation may also be considered. Discharge Plan Discharge Patient Disposition: Home Clinical Impression: Fall from slip, trip, or stumble Hip pain Qualifiers: Laterality: right Qualified Code(s): M25.551 - Pain in right hip Headache Qualifiers: Headache type: unspecified Headache chronicity pattern: acute headache Intractability: not intractable Qualified Code(s): R51.9 - Headache, unspecified Condition: Stable Prescriptions: No Action (DME) night splint to left See Rx Instructions .Route .MEDSUPPLY Qty: 1 0RF Rx Instructions: As directed pantoprazole [Protonix] 40 mg tablet,delayed release (DR/EC) 40 mg PO BID 42 Days Qty: 84 0RF (DME) Cam Boot to the left See Rx Instructions .Route .MEDSUPPLY Qty: 1 0RF Rx Instructions: As directed Aimovig Autoinjector 140 mg/mL auto-injector 140 mg SUBCUT Q30D Qty: 1 2RF ([facility] [place] Thumb Spika Splint See Rx Instructions .Route .MEDSUPPLY Qty: 1 0RF Rx Instructions: As directed metoprolol tartrate 50 mg tablet 50 mg PO BID Qty: 180 3RF amlodipine 10 mg tablet 10 mg PO BEDTIME dicyclomine 20 mg tablet 20 mg PO QID Qty: 120 1RF hydrocodone-acetaminophen 7.5-325 mg tablet 1 tab PO TID PRN hydralazine 100 mg tablet 100 mg PO TID Qty: 300 3RF ([facility] [place] blood pressure monitor Kit See Rx Instructions .Route Qty: 1 0RF Rx Instructions: As directed gabapentin 300 mg capsule 300 mg PO TID Qty: 90 0RF Rx Instructions: patient can take 600mg at night diclofenac sodium [Voltaren Arthritis Pain] 1 % gel 4 g topical QID PRN (Reason: Pain) Qty: 100 0RF Rx Instructions: apply to single knee, ankle, foot; for foot includes sole/toes/top of foot ([facility] [place] Night Splint See Rx Instructions .Route .MEDSUPPLY Qty: 1 0RF Rx Instructions: As directed by HOME ([facility] [place]) Night Splint See Rx Instructions .Route .MEDSUPPLY Qty: 1 0RF Rx Instructions: As directed diazepam [Valium] 5 mg tablet 5 mg PO ONCE PRN (Reason: anxiety) 1 Days Qty: 2 0RF topiramate [Topamax] 100 mg tablet 100 mg PO DAILY 90 Days Qty: 90 3RF Rx Instructions: Take 1 tablet daily clonazepam 0.5 mg tablet 0.5 mg PO BID PRN (Reason: anxiety/panic) Qty: 60 0RF nitroglycerin 0.6 mg/hr patch 24 hour See Rx Instructions .ROUTE .COMPLEX Qty: 30 1RF Dose Instruction: APPLY 1 PATCH NEEDED FOR PLANTAR FASCIA PAIN, ALLOW NITRATE FREE INTERVAL OF 10-12HRS/24HR PERIOD Rx Instructions: APPLY 1 PATCH NEEDED FOR PLANTAR FASCIA PAIN, ALLOW NITRATE FREE INTERVAL OF 10-12HRS/24HR PERIOD trazodone 150 mg tablet See Rx Instructions .ROUTE .COMPLEX Qty: 30 1RF Dose Instruction: TAKE 1 TABLET BY MOUTH AT BEDTIME Rx Instructions: TAKE 1 TABLET BY MOUTH AT BEDTIME prazosin 5 mg capsule See Rx Instructions .ROUTE .COMPLEX Qty: 30 1RF Dose Instruction: TAKE 1 CAPSULE BY MOUTH EVERYDAY AT BEDTIME Rx Instructions: TAKE 1 CAPSULE BY MOUTH EVERYDAY AT BEDTIME quetiapine 300 mg tablet extended release 24 hr See Rx Instructions .ROUTE .COMPLEX Qty: 30 1RF Dose Instruction: TAKE 1 TABLET BY MOUTH EVERYDAY AT BEDTIME Rx Instructions: TAKE 1 TABLET BY MOUTH EVERYDAY AT BEDTIME fluoxetine 40 mg capsule See Rx Instructions .ROUTE .COMPLEX Qty: 60 1RF Dose Instruction: TAKE 2 CAPSULES BY MOUTH IN THE MORNING Rx Instructions: TAKE 2 CAPSULES BY MOUTH IN THE MORNING Ajovy Autoinjector 225 mg/1.5 mL auto-injector 225 mg SUBCUT ONCE Qty: 1.5 4RF albuterol sulfate 90 mcg/actuation Hfa Aerosol Inhaler 1 - 2 puff INHALATION Q4H PRN (Reason: Shortness Of Breath) aspirin 81 mg Tablet,Chewable 81 mg PO QAM ipratropium-albuterol 0.5 mg-3 mg(2.5 mg base)/3 mL solution for nebulization 3 ml INHALATION DAILY PRN (Reason: Shortness Of Breath) polyethylene glycol 3350 [Miralax] 17 gram/dose powder 17 g PO DAILY PRN (Reason: Constipation) budesonide-formoterol [Symbicort] 160-4.5 mcg/actuation Hfa Aerosol Inhaler 2 puff INHALATION Q12H chlorthalidone 50 mg tablet 50 mg PO QAM losartan 100 mg tablet 100 mg PO QAM montelukast 10 mg tablet 10 mg PO DAILY hydroxychloroquine 200 mg tablet 200 mg PO BID isosorbide mononitrate 60 mg tablet extended release 24 hr 60 mg PO DAILY nitroglycerin [Nitrostat] 0.4 mg Tablet, Sublingual 0.4 mg SUBLINGUAL Q5M PRN (Reason: Chest Pain) Rx Instructions: do not exceed 3 doses per episode docusate sodium [Colace] 100 mg capsule 100 mg PO BID PRN (Reason: stool softener) promethazine 25 mg tablet 25 mg PO Q6H PRN (Reason: nausea and vomiting) Qty: 20 0RF methocarbamol 500 mg tablet 1,000 mg PO Q8H Qty: 30 0RF diclofenac sodium 50 mg tablet,delayed release (DR/EC) 50 mg PO Q12H PRN (Reason: pain) Qty: 20 0RF methocarbamol 750 mg tablet 750 mg PO TID Qty: 14 0RF Medrol (Miguel) 4 mg tablets,dose pack See Rx Instructions .ROUTE .COMPLEX Qty: 21 0RF Rx Instructions: orally per package directions Naprosyn 500 mg tablet 500 mg PO BID PRN (Reason: pain) Qty: 20 0RF Naprosyn 500 mg tablet 500 mg PO BID PRN (Reason: pain) Qty: 20 0RF Discharge Orders: Discharge ED (Routine); Ordered 05/04/23 Ordered By: Holden Cruz Referrals: Alpesh Garcia MD [Primary Care Provider] - Discharge Diet: Usual diet Discharge Activity: Increase activity as tolerated Patient Instructions: Musculoskeletal Pain (ED) Activity Restrictions/Additional Instructions: Activity as tolerated. Use acetaminophen and/or ibuprofen to help with pain and discomfort. Use ice or heat for further pain relief. Follow-up with primary care for further instructions. 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
--- NOTE | 2023-05-04 19:16 | XRR_ITS ---
PROCEDURE INFORMATION: Exam: XR Right Hip Exam date and time: 05/04/2023 7:40 PM Age: 52 years old Clinical indication: Injury or trauma; Fall; Blunt trauma (contusions or hematomas); Right; Hip; Additional info: Fall, include pelvis TECHNIQUE: Imaging protocol: Radiologic exam of the right hip. Views: 1 view hip with pelvis when performed. COMPARISON: CR XR hip RT 2-3V wo/w pel* [id number] 04/08/2023 8:09 AM FINDINGS: Bones/joints: Well preserved hip joint spaces. No obvious acute fracture dislocation. Three views submitted. Soft tissues: Unremarkable. XR/XR hip RT 2-3V wo/w pel* [id number] IMPRESSION: 1. No acute findings. 2. If there is a strong clinical concern for an occult fracture, followup exam or MRI correlation may also be considered.
[2023-05-04] MEDS: ketorolac 30 mg/mL INJ IM (19:25)
[2023-05-04] MEDS: metoclopramide 5 mg/mL SDV 2 mL 10 MG IM (19:27)
[2023-05-04 19:35] VITALS: BP 199/120; PULSE 72; RESP 18; O2SAT 97
[2023-05-04 20:41] VITALS: PULSE 87; RESP 16; O2SAT 97
== END 2023-05-04 20:44 | disposition home or self-care (01) ==
PROVIDERS: Emergency Provider Nurse Practitioner Family; PCP Family Medicine
DX: R51.9 Headache, unspecified (principal); M25.551 Pain in right hip; Z79.82 Long term (current) use of aspirin; Z77.22 Contact with and (suspected) exposure to environmental tobacco smoke (acute) (chronic); J44.9 Chronic obstructive pulmonary disease, unspecified; I10 Essential (primary) hypertension; W01.0XXA Fall on same level from slipping, tripping and stumbling without subsequent striking against object, initial encounter
CPT/HCPCS: 73502; 96372; 99284; J1885; J2765

== ENCOUNTER 2023-05-12 20:10 | Emergency (ER) | payer MEDICAID, SELFPAY ==
[2023-03-27 11:42] VITALS: BMI 42.0
[2023-05-12 20:50] VITALS: BP 160/89; PULSE 101; RESP 16; TEMP 36.5; O2SAT 96; BMI 42.0
--- NOTE | 2023-05-12 21:47 | ED_ITS ---
HPI - Headache General: Chief Complaint: Headache Stated Complaint: headache / arm pain Time Seen by Provider: 05/12/23 21:43 Source: patient Mode of arrival: ambulatory Limitations: no limitations History of Present Illness: 52-year-old female states she had a migraine headache throughout the day. She had a history of migraines this feels similar. She rates her headache a 6 out of 10 she has photophobia and phonophobia denies this being the worst headache or light denies any fevers. Associated symptoms: Deny chest pain, fever(s), nausea, rash or vomiting Review of Systems Const: Denies: fever(s), chills, body aches or change in appetite Eyes: Denies: blurry vision or eye discomfort ENMT: Denies: throat pain or dental pain Card: Denies: chest pain Resp: Denies: dyspnea GI: Denies: abdominal pain, nausea, vomiting or diarrhea Musc: Denies: neck pain or back pain Skin/Breast: Denies: rash Neuro: Reports: headache(s) PFSH ED PFSH: Medical History Abnormal reflex COPD (chronic obstructive pulmonary disease) GERD (gastroesophageal reflux disease) Helicobacter pylori gastritis HTN (hypertension) Neck pain Psychiatric care Psychiatric care Kimberly patel Surgical History History of cholecystectomy History of esophagogastroduodenoscopy Hx of section Hx of colonoscopy 2020 [facility] Hx of hysterectomy Family History Family/Other Cancer Diabetes Father Diabetes Hyperlipidemia Hypertension Stroke Mother Hypertension Stroke CAD (coronary artery disease) Rheumatoid arthritis Other Major depressive disorder, recurrent severe without psychotic features Panic disorder [episodic paroxysmal anxiety] Post-traumatic stress disorder, chronic Social History Smoking and tobacco status: never smoked Second hand smoke exposure: Yes Alcohol intake: never Substance/Drug Use: never Physical Exam Const: COMMON NORMALS: no acute distress, patient oriented x3 and healthy appearing HENMT: COMMON NORMALS: normocephalic and atraumatic HEAD & SCALP: normocephalic and atraumatic Eye: COMMON NORMALS: Equal, round and reactive pupils present and EOMs intact bilaterally PUPIL: Yes Equal, round and reactive pupils present Neck/C-Spine: COMMON NORMALS: full ROM and supple Chest: COMMONS NORMALS: normal inspection of the chest Resp: COMMON NORMALS: normal respiratory effort Cardio: COMMON NORMALS: regular rate and No murmurs present (Cardio) RATE: regular rate Extremity: COMMON NORMALS: normal to inspection and full ROM Neuro: COMMON NORMALS: patient oriented x3, moves all extremities and no focal motor deficits Psych: COMMON NORMALS: mental status grossly normal, Normal thought process present and cooperative THOUGHT PROCESS: Normal thought process present Skin: COMMON NORMALS: no rashes or lesions noted and no wounds GENERAL SKIN EXAM: no rashes or lesions noted Course Vital Signs: Vital signs: Vital Signs Temperature 97.7 F 05/12/23 20:50 Pulse Rate 101 H 05/12/23 20:50 Respiratory Rate 16 05/12/23 20:50 Blood Pressure 160/89 05/12/23 20:50 Pulse Oximetry 96 05/12/23 20:50 Oxygen Delivery Me thod Room Air 05/12/23 20:50 MDM - Headache Medical Decision Making 52-year-old female presented here with a migraine headache no signs subarachnoid hemorrhage or meningitis patient given Reglan Benadryl Toradol and is stable for discharge she is to follow-up with PCP and return if worsening Medical Records I reviewed the patient's medical records. Lab Data I reviewed the patient's lab results. Discharge Plan Discharge Patient Disposition: Home Clinical Impression: Headache Condition: Stable Prescriptions: No Action (DME) night splint to left See Rx Instructions .Route .MEDSUPPLY Qty: 1 0RF Rx Instructions: As directed pantoprazole [Protonix] 40 mg tablet,delayed release (DR/EC) 40 mg PO BID 42 Days Qty: 84 0RF (DME) Cam Boot to the left See Rx Instructions .Route .MEDSUPPLY Qty: 1 0RF Rx Instructions: As directed Aimovig Autoinjector 140 mg/mL auto-injector 140 mg SUBCUT Q30D Qty: 1 2RF (DME) Thumb Spika Splint See Rx Instructions .Route .MEDSUPPLY Qty: 1 0RF Rx Instructions: As directed metoprolol tartrate 50 mg tablet 50 mg PO BID Qty: 180 3RF amlodipine 10 mg tablet 10 mg PO BEDTIME dicyclomine 20 mg tablet 20 mg PO QID Qty: 120 1RF hydrocodone-acetaminophen 7.5-325 mg tablet 1 tab PO TID PRN hydralazine 100 mg tablet 100 mg PO TID Qty: 300 3RF ([facility]) blood pressure monitor Kit See Rx Instructions .Route Qty: 1 0RF Rx Instructions: As directed gabapentin 300 mg capsule 300 mg PO TID Qty: 90 0RF Rx Instructions: patient can take 600mg at night diclofenac sodium [Voltaren Arthritis Pain] 1 % gel 4 g topical QID PRN (Reason: Pain) Qty: 100 0RF Rx Instructions: apply to single knee, ankle, foot; for foot includes sole/toes/top of foot (DME) Night Splint See Rx Instructions .Route .MEDSUPPLY Qty: 1 0RF Rx Instructions: As directed by HOME (DME) Night Splint See Rx Instructions .Route .MEDSUPPLY Qty: 1 0RF Rx Instructions: As directed diazepam [Valium] 5 mg tablet 5 mg PO ONCE PRN (Reason: anxiety) 1 Days Qty: 2 0RF topiramate [Topamax] 100 mg tablet 100 mg PO DAILY 90 Days Qty: 90 3RF Rx Instructions: Take 1 tablet daily clonazepam 0.5 mg tablet 0.5 mg PO BID PRN (Reason: anxiety/panic) Qty: 60 0RF nitroglycerin 0.6 mg/hr patch 24 hour See Rx Instructions .ROUTE .COMPLEX Qty: 30 1RF Dose Instruction: APPLY 1 PATCH NEEDED FOR PLANTAR FASCIA PAIN, ALLOW NITRATE FREE INTERVAL OF 10-12HRS/24HR PERIOD Rx Instructions: APPLY 1 PATCH NEEDED FOR PLANTAR FASCIA PAIN, ALLOW NITRATE FREE INTERVAL OF 10-12HRS/24HR PERIOD trazodone 150 mg tablet See Rx Instructions .ROUTE .COMPLEX Qty: 30 1RF Dose Instruction: TAKE 1 TABLET BY MOUTH AT BEDTIME Rx Instructions: TAKE 1 TABLET BY MOUTH AT BEDTIME prazosin 5 mg capsule See Rx Instructions .ROUTE .COMPLEX Qty: 30 1RF Dose Instruction: TAKE 1 CAPSULE BY MOUTH EVERYDAY AT BEDTIME Rx Instructions: TAKE 1 CAPSULE BY MOUTH EVERYDAY AT BEDTIME quetiapine 300 mg tablet extended release 24 hr See Rx Instructions .ROUTE .COMPLEX Qty: 30 1RF Dose Instruction: TAKE 1 TABLET BY MOUTH EVERYDAY AT BEDTIME Rx Instructions: TAKE 1 TABLET BY MOUTH EVERYDAY AT BEDTIME fluoxetine 40 mg capsule See Rx Instructions .ROUTE .COMPLEX Qty: 60 1RF Dose Instruction: TAKE 2 CAPSULES BY MOUTH IN THE MORNING Rx Instructions: TAKE 2 CAPSULES BY MOUTH IN THE MORNING Ajovy Autoinjector 225 mg/1.5 mL auto-injector 225 mg SUBCUT ONCE Qty: 1.5 4RF albuterol sulfate 90 mcg/actuation Hfa Aerosol Inhaler 1 - 2 puff INHALATION Q4H PRN (Reason: Shortness Of Breath) aspirin 81 mg Tablet,Chewable 81 mg PO QAM ipratropium-albuterol 0.5 mg-3 mg(2.5 mg base)/3 mL solution for nebulization 3 ml INHALATION DAILY PRN (Reason: Shortness Of Breath) polyethylene glycol 3350 [Miralax] 17 gram/dose powder 17 g PO DAILY PRN (Reason: Constipation) budesonide-formoterol [Symbicort] 160-4.5 mcg/actuation Hfa Aerosol Inhaler 2 puff INHALATION Q12H chlorthalidone 50 mg tablet 50 mg PO QAM losartan 100 mg tablet 100 mg PO QAM montelukast 10 mg tablet 10 mg PO DAILY hydroxychloroquine 200 mg tablet 200 mg PO BID isosorbide mononitrate 60 mg tablet extended release 24 hr 60 mg PO DAILY nitroglycerin [Nitrostat] 0.4 mg Tablet, Sublingual 0.4 mg SUBLINGUAL Q5M PRN (Reason: Chest Pain) Rx Instructions: do not exceed 3 doses per episode docusate sodium [Colace] 100 mg capsule 100 mg PO BID PRN (Reason: stool softener) promethazine 25 mg tablet 25 mg PO Q6H PRN (Reason: nausea and vomiting) Qty: 20 0RF methocarbamol 500 mg tablet 1,000 mg PO Q8H Qty: 30 0RF diclofenac sodium 50 mg tablet,delayed release (DR/EC) 50 mg PO Q12H PRN (Reason: pain) Qty: 20 0RF methocarbamol 750 mg tablet 750 mg PO TID Qty: 14 0RF Medrol (Miguel) 4 mg tablets,dose pack See Rx Instructions .ROUTE .COMPLEX Qty: 21 0RF Rx Instructions: orally per package directions Naprosyn 500 mg tablet 500 mg PO BID PRN (Reason: pain) Qty: 20 0RF Naprosyn 500 mg tablet 500 mg PO BID PRN (Reason: pain) Qty: 20 0RF Discharge Orders: Discharge ED (Routine); Ordered 05/12/23 Ordered By: Leon Moura Referrals: Alpesh Garcia MD [Primary Care Provider] - 1-3 days Discharge Diet: Advance as tolerated Discharge Activity: Resume usual activity Patient Instructions: Headache - Migraine (Adult) Stand Alone Forms: Work/School Release Coding Level of Care Code ED 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
[2023-05-12 21:51] VITALS: BP 146/98; PULSE 80; RESP 17; O2SAT 97
[2023-05-12] MEDS: diphenhydrAMINE 50 mg/mL SDV 1mL IM (21:59)
[2023-05-12] MEDS: ketorolac 30 mg/mL INJ IM (21:59)
[2023-05-12] MEDS: metoclopramide 5 mg/mL SDV 2 mL 10 MG IM (21:59)
[2023-05-12 22:02] VITALS: BP 137/87; PULSE 80; RESP 16; O2SAT 96
== END 2023-05-12 22:07 | disposition home or self-care (01) ==
PROVIDERS: Emergency Provider Emergency Medicine; PCP Family Medicine
DX: R51.9 Headache, unspecified (principal); Z79.82 Long term (current) use of aspirin; Z77.22 Contact with and (suspected) exposure to environmental tobacco smoke (acute) (chronic); J44.9 Chronic obstructive pulmonary disease, unspecified; I10 Essential (primary) hypertension
CPT/HCPCS: 96372; 99284; J1200; J1885; J2765

== ENCOUNTER 2023-05-16 05:42 | Day surgery (SDC) | payer MEDICAID, SELFPAY ==
[2023-03-27 11:42] VITALS: BMI 42.0
[2023-05-15 12:56] VITALS: BMI 42.0
[2023-05-16] VITALS (7 sets, daily range): BP systolic 98–177; BP diastolic 58–116; PULSE 67–81; RESP 16–18; TEMP 36.2–36.4; O2SAT 93–96
--- NOTE | 2023-05-16 06:38 | W.PM.OPSUD ---
Surgery/Procedure H&P Update DATE OF PROCEDURE: May 16, 2023 DATE H&P PERFORMED: 04/28/23 CHANGES TO PREVIOUS DOCUMENTATION: None PREOP DIAGNOSIS: Gastrocnemius equinus and plantar fasciitis left lower extremity PLANNED PROCEDURE: Operation Date: 05/16/23 07:00 Proposed Procedures p ?Left gastrocnemius recession/Cortisone injection left plantar fascia 59003, 32582,M72.2, M21.962(Left) - Lm Dixon DPM s Cortisone Injection(Left) - Lm Dixon DPM
--- NOTE | 2023-05-16 06:39 | P.OP_ITS ---
Operative Report Date of procedure: May 16, 2023 Pre-op diagnosis: 1) gastrocnemius equinus, left lower extremity. 2) left plantar plantar fibromatosis Post-op diagnosis: Same Post-op findings: Improved dorsiflexion left ankle post gastrocnemius recession Procedure done: 1) left gastrocnemius recession. CPT code 61493 2) cortisone injection left plantar fascia. CPT code 68191 Implants: 3-0 Vicryl, 3-0 nylon Specimens removed/disposition: None Pathology: None Surgeon: Lm Dixon D.P.M. Estimated blood loss: Less than 5 17 IV fluids: 0 Urine output: 0 Complications: None Brief History: Recalcitrant left plantar fasciitis.? Finished a series of cortisone injections total of 3 that was finished in April 2022.? Since that time she has been advised to wear supportive shoes, prefabricated orthotics and aggressive stretching, icing, deep tissue massage, have also trialed nitroglycerin transdermal patches without relief.? Last x-ray was taken of her left foot 09/30/2022 negative for acute fracture or osseous lesion at the heel.? Left heel pain has been going on for greater than 1 year.? Recommending MRI without contrast to evaluate the plantar fascia for possible preoperative planning.? Reviewed MRI findings.? Patient has gastrocnemius equinus.? Discussed gastrocnemius recession and cortisone injection to the left plantar fascia as a stepwise approach.? Should this fail could then do plantar fascial release.? Left gastrocnemius recession and cortisone injection left plantar fascia.? I reviewed at length with the patient, the risks, potential complications, benefits, alternatives, expectations, and typical outcomes associated with the surgery. The risks and potential complications were explained in detail, including but not limited to infection, wound dehiscence or soft tissue complications, bleeding and hematoma, chronic edema, neuritis or nerve damage producing numbness or chronic pain, CRPS, failure to relieve pain or worsening pain, thick / painful / unsightly scar, limited motion / stiffness, malposition, delayed union, malunion, or nonunion, fracture, reaction to implants, anesthetic complications, venous thromboembolism, and deformity recurrence.? I discussed the notion of no regrets with the patient as it pertains to complications and outcomes. The patient seemed to understand the nature of the proposed care and required convalescence. They asked appropriate questions, answered to their satisfaction. They are aware no guarantees can be made as to a satisfactory outcome and they understand there may be other possible unforeseen complications or outcomes not listed here that will be treated accordingly if they arise. The re were no written or implied guarantees given to the patient. They gave informed consent to proceed. Procedure: Mild sedation the patient was brought to the operating room and remained on the gurney in supine position. A timeout was performed. Anesthesia was then administered by the anesthesia service. Local anesthesia injected by myself consisting of one-to-one mixture 2% lidocaine 0.5% Marcaine plain total of 30 cc. Well-padded pneumatic tourniquet was applied to the left thigh. The left lower extremity was scrubbed, prepped and draped utilizing normal aseptic technique. Left foot and leg were exanguinated with an Esmarch bandage and the tourniquet inflated to 250 mmHg. Attention was directed to the medial aspect of the left leg. Dorsiflexion of the left ankle was performed intraoperatively and noted to be decreased, she was unable to dorsiflex to 10 degrees beyond neutral at the left ankle. At the flare of the gastrocnemius muscle at the myotendinous juncture just proximal to this a linear incision was performed at the medial left leg with blunt dissection carried down to crural fascia. Care was taken to retract and pre serve neurovascular and tendinous structures. All bleeders were ligated and cauterized as necessary. Crural fascia was incised and the interval between the gastrocnemius and psoas muscles were identified bluntly. A self-retaining retractor was inserted and the gastrocnemius fascia was incised from medial to lateral under direct visualization able to appreciate underlying muscle belly once the resection was performed. Increased dorsiflexion near 10 degrees intraoperatively was appreciated after the gastrocnemius recession. This incision was irrigated with sterile saline and closed in a layered fashion. Oral fascia was closed with 3-0 Vicryl. Skin closed with 3-0 nylon. The left leg was dressed with Xeroform, 4 x 4's, Kerlix and Andrea wrap. Attention was directed to the left plantar fascia medial band and a cortisone injection was administered to the left plantar fascia with medial approach. Injection carried out consisting of a total of 2 mL one-to-one mixture of dexamethasone and Kenalog. Patient tolerated the procedure and anesthesia well and was transferred to the PACU with vital signs stable and vascular status intact. Following a period of postoperative monitoring she will be discharged home. She is to wear cam boot at all times. Elevate her left foot while resting. May be weightbearing as tolerated with a cam boot. She was given at home care instructions, scheduled follow-up and my cell phone number was provided to contact me with any postoperative questions or concerns.
--- NOTE | 2023-05-16 06:50 | P.ANESASSM_ITS ---
Pre-Anesthetic Assessment Height/Weight: Height 1.63 m Weight 111.13 kg Temp Pulse Resp BP Pulse Ox O2 Del Method 97.6 F 81 18 177/116 96 Room Air 05/16/23 06:01 05/16/23 06:01 05/16/23 06:01 05/16/23 06:01 05/16/23 06:01 05/16/23 06:09 Preop Diagnosis: Gastrocnemius equinus and plantar fasciitis left lower extremity Operation Date: 05/16/23 07:00 Proposed Procedures p ?Left gastrocnemius recession/Cortisone injection left plantar fascia 40055, 46639,M72.2, M21.962(Left) - Lm Dixon DPM s Cortisone Injection(Left) - Lm Dixon DPM Familial anesthetic complications: None Was Beta Gaby taken within 24 hours: Yes Was Clonidine taken within 24 hours: N/A Last intake: Intake Last Liquid Date 05/15/23 Last Liquid Time 22:00 Last Solid Date 05/15/23 Last Solid Time 14:00 Social No alcohol and No tobacco Exam alert, oriented x 3, clear to auscultation bilaterally and regular rate & rhythm Airway Dentition: other (multiple missing) Pulmonary Chronic Obstructive Pulmonary Disease CV/HEM Hypertension GI Gastroesophageal Reflux Disease Anesthetic Plan ASA status: 3 Anesthesia: MAC Risk of > 500 ml blood loss (7ml/kg in children): No Medications/Allergies Home Medications Medication Instructions Recorded Confirmed Last Taken Type albuterol sulfate 90 mcg/actuation 1 - 2 puff inhalation Q4H PRN 02/23/21 05/15/23 11/26/22 History aerosol inhaler Shortness Of Breath aspirin 81 mg chewable tablet 81 mg PO QAM 02/23/21 05/15/23 05/11/23 History budesonide-formoterol HFA 160 2 puff inhalation Q12H 03/27/21 05/15/23 11/26/22 History mcg-4.5 mcg/actuation aerosol inhaler (Symbicort) ipratropium 0.5 mg-albuterol 3 mg 3 ml inhalation DAILY PRN 03/27/21 05/15/23 11/26/22 History (2.5 mg base)/3 mL nebulization Shortness Of Breath soln polyethylene glycol 3350 17 17 g PO DAILY PRN Constipation 03/27/21 05/15/23 11/25/22 History gram/dose oral powder (Miralax) night splint to left #1 ea 08/20/21 04/29/23 07/09/22 Rx chlorthalidone 50 mg tablet 50 mg PO QAM 01/30/22 05/15/23 05/12/23 History hydroxychloroquine 200 mg tablet 200 mg PO BID 01/30/22 05/15/23 05/12/23 History losartan 100 mg tablet 100 mg PO QAM 01/30/22 05/15/23 05/12/23 History montelukast 10 mg tablet 10 mg PO DAILY 01/30/22 05/15/23 05/12/23 History diclofenac sodium 1 % topical gel 4 g topical QID PRN Pain #100 grams 05/16/22 05/15/23 11/26/22 Rx (Voltaren Arthritis Pain) pantoprazole 40 mg tablet,delayed 40 mg PO BID 6 weeks #84 tabs 08/02/22 05/15/23 11/26/22 Rx release (Protonix) amlodipine 10 mg tablet 10 mg PO BEDTIME 08/15/22 05/15/23 05/14/23 History Night Splint #1 ea 08/21/22 04/29/23 Unknown Rx Night Splint #1 ea 09/17/22 04/29/23 Unknown Rx metoprolol tartrate 50 mg tablet 50 mg PO BID #180 tabs 09/17/22 05/15/23 05/12/23 Rx Cam Boot to the left #1 ea 09/30/22 04/29/23 Unknown Rx docusate sodium 100 mg capsule 100 mg PO BID PRN stool softener 11/04/22 05/15/23 11/26/22 History (Colace) isosorbide mononitrate 60 mg 60 mg PO DAILY 11/04/22 05/15/23 05/12/23 History tablet,extended release 24 hr nitroglycerin 0.4 mg sublingual 0.4 mg sublingual Q5M PRN Chest 11/04/22 05/15/23 11/23/22 History tablet (Nitrostat) Pain promethazine 25 mg tablet 25 mg PO Q6H PRN nausea and 11/04/22 05/15/23 11/26/22 Rx vomiting #20 tabs dicyclomine 20 mg tablet 20 mg PO QID #120 tabs 11/12/22 05/15/23 05/12/23 Rx diclofenac sodium 50 mg 50 mg PO Q12H PRN pain #20 tabs 12/19/22 05/15/23 Unknown Rx tablet,delayed release topiramate 100 mg tablet (Topamax) 100 mg PO DAILY 90 days #90 tabs 01/27/23 05/15/23 05/12/23 Rx blood pressure monitor #1 ea 01/31/23 04/29/23 Unknown Rx hydralazine 100 mg tablet 100 mg PO TID #300 tabs 01/31/23 05/15/23 05/12/23 Rx hydrocodone 7.5 mg-acetaminophen 1 tab PO TID PRN Pain 01/31/23 05/15/23 Unknown History 325 mg tablet clonazepam 0.5 mg tablet 0.5 mg PO BID PRN anxiety/panic 02/26/23 05/15/23 Unknown Rx #60 tabs nitroglycerin 0.6 mg/hr See Rx Instructions .Route 03/03/23 05/15/23 Unknown Rx transdermal 24 hour patch .COMPLEX #30 patches trazodone 150 mg tablet See Rx Instructions .Route 03/18/23 05/15/23 05/12/23 Rx .COMPLEX #30 tabs methocarbamol 750 mg tablet 750 mg PO TID back pain #14 tabs 03/20/23 05/15/23 Unknown Rx prazosin 5 mg capsule See Rx Instructions .Route 03/27/23 05/15/23 05/12/23 Rx .COMPLEX #30 caps fluoxetine 40 mg capsule See Rx Instructions .Route 03/28/23 05/15/23 05/12/23 Rx .COMPLEX #60 caps quetiapine 300 mg tablet,extended See Rx Instructions .Route 03/28/23 05/15/23 05/12/23 Rx release 24 hr .COMPLEX #30 tabs gabapentin 300 mg capsule 300 mg PO TID #90 caps 04/08/23 05/15/23 Unknown Rx naproxen 500 mg tablet (Naprosyn) 500 mg PO BID PRN pain #20 tabs 04/23/23 05/15/23 Unknown Rx Thumb Spika Splint #1 ea 04/28/23 04/29/23 Unknown Rx erenumab-aooe 140 mg/mL 140 mg SUBCUT Q30D #1 mL 04/29/23 05/15/23 05/14/23 Rx subcutaneous auto-injector (Aimovig Autoinjector) fremanezumab-vfrm 225 mg/1.5 mL 225 mg (1.5 mL) SUBCUT ONCE #1.5 mL 05/01/23 05/15/23 Unknown Rx subcutaneous auto-injector (Ajovy) hydrocodone 10 mg-acetaminophen 1 tab PO Q6H PRN pain 7 days #28 05/16/23 Unknown Rx 325 mg tablet tabs Allergies Allergy/AdvReac Type Severity Reaction Status Date / Time No Known Allergies Allergy Verified 05/12/23 20:50 PFS Anesthesia Medical History Abnormal reflex COPD (chronic obstructive pulmonary disease) GERD (gastroesophageal reflux disease) Helicobacter pylori gastritis HTN (hypertension) Neck pain Psychiatric care Psychiatric care Schatzki's ring Surgical History History of cholecystectomy History of esophagogastroduodenoscopy Hx of section Hx of colonoscopy 2020 [facility] Hx of hysterectomy Family History Family/Other Cancer Diabetes Father Diabetes Hyperlipidemia Hypertension Stroke Mother Hypertension Stroke CAD (coronary artery disease) Rheumatoid arthritis Other Major depressive disorder, recurrent severe without psychotic features Panic disorder [episodic paroxysmal anxiety] Post-traumatic stress disorder, chronic Social History Smoking and tobacco status: never smoked Second hand smoke exposure: Yes Alcohol intake: never Substance/Drug Use: never Data Anesthesia Cardiac Studies: Echocardiogram 10/16/22 Sestamibi Stress Test (Cardiology) 12/05
[2023-05-16] MEDS: sodium chloride 0.9% 1,000 ML 30 ML IV (06:53)
[2023-05-16] MEDS: metoprolol tartrate 1 mg/1 mL SDV 5 mL 5 MG IVP (07:02)
[2023-05-16] MEDS: ceFAZolin 2,000 MG in sodium chloride 0.9% (plus) 50 ML 100 MG IV (07:10)
[2023-05-16] MEDS: lidocaine 2% INJ 20 mL INJECTION (07:37)
[2023-05-16] MEDS: triamcinolone 40 mg/mL SDV INJECTION (07:37)
[2023-05-16] MEDS: dexamethasone 4 mg/mL INJ INJECTION (07:38)
--- NOTE | 2023-05-16 08:14 | ANE.PACU2 ---
Inpatient post-anesthesia follow up: Airway intact: Yes Vital signs: Temperature 97.3 F Pulse Rate 68 Respiratory Rate 16 Blood Pressure 115/67 Pulse Oximetry 94 Oxygen Delivery Me thod Room Air Oxygen Flow Rate 6 Fraction of Inspir ed Oxygen Hydration adequate: Yes Nausea and vomiting: Yes Pain level: 1 Mental status: Baseline
[2023-05-16] MEDS: HYDROcodone-acetaminophen 10-325 mg Tablet 1 TAB PO (08:45)
[2023-05-19 05:48] LABS: Glucose Point of Care 98 mg/dL (70-110)
== END 2023-05-16 09:09 | disposition home or self-care (01) ==
PROVIDERS: PCP Family Medicine; Visit Provider Podiatrist Foot & Ankle Surgery
PROC: (CPT 27687; principal; 2023-05-16 07:00)
PROC: (CPT 96372; 2023-05-16 07:00)
DX: M72.2 Plantar fascial fibromatosis (principal); M21.962 Unspecified acquired deformity of left lower leg; J44.9 Chronic obstructive pulmonary disease, unspecified; I10 Essential (primary) hypertension; Z79.82 Long term (current) use of aspirin; Z79.891 Long term (current) use of opiate analgesic
CPT/HCPCS: 20550; 27687; 36416; 82962; J0690; J1100; J1885; J2704; J3010; J3301; J3490; J7030

== ENCOUNTER 2023-05-27 12:46 | Outpatient (CLI) | payer MEDICAID, SELFPAY ==
[2023-03-27 11:42] VITALS: BMI 42.0
--- NOTE | 2023-05-27 12:45 | MR_ITS ---
WS: [id number] MRI RIGHT WRIST WITHOUT CONTRAST. COMPARISON: Radiograph 04/28/2023 Multiplanar, multisequence imaging is performed without contrast. Very mild narrowing of the radiocarpal joint. No widening of the scapholunate interval. There is a sm all cyst in the distal scaphoid. Carpal rows appear appropriate. No suspicious abnormal signal within the TFCC. There is increased signal surrounding the extensor pollicis tendons and the extensor carpi radialis t endon. There is a very tiny amount of increased T2 signal in the tendon proper of the extensor pollic is brevis tendon. There is increased fluid within the tendon sheath. No additional signal abnormalities are identified. IMPRESSION: 1. Tenosynovitis involving the extensor pollicis brevis and longus tendons and sheath. Suspect a very minimal tear in the tendon of the extensor pollicis brevis. 2. Increased fluid surrounding the extensor pollicis longus and brevis tendons and the sheath with te nosynovitis and tendinopathy.
== END 2023-05-27 12:47 | disposition home or self-care (01) ==
PROVIDERS: PCP Family Medicine; Visit Provider Nurse Practitioner Family
DX: M25.531 Pain in right wrist (principal); M65.88 Other synovitis and tenosynovitis, other site
CPT/HCPCS: 73221

== ENCOUNTER → 2023-05-29 07:41 | Outpatient (BNVA) | payer MEDICAID, SELFPAY ==
[2023-03-27 11:42] VITALS: BMI 42.0
== END ==
PROVIDERS: PCP Family Medicine; Visit Provider Podiatrist Foot & Ankle Surgery
DX: M72.2 Plantar fascial fibromatosis (principal); Z98.890 Other specified postprocedural states
CPT/HCPCS: 99024

== ENCOUNTER → 2023-06-03 08:17 | Outpatient (BNVA) | payer MEDICAID, SELFPAY ==
[2023-03-27 11:42] VITALS: BMI 42.0
== END ==
PROVIDERS: PCP Family Medicine; Visit Provider Nurse Practitioner Family
DX: M65.4 Radial styloid tenosynovitis [de Quervain] (principal); Z09 Encounter for follow-up examination after completed treatment for conditions other than malignant neoplasm
CPT/HCPCS: 20550; 99214; J3301

== ENCOUNTER → 2023-06-04 14:29 | Outpatient (BNVA) | payer MEDICAID, SELFPAY ==
[2023-03-27 11:42] VITALS: BMI 42.0
== END ==
PROVIDERS: PCP Family Medicine; Visit Provider Surgery
DX: R13.10 Dysphagia, unspecified (principal); K21.9 Gastro-esophageal reflux disease without esophagitis
CPT/HCPCS: 99213

== ENCOUNTER 2023-06-12 19:02 | Emergency (ER) | payer MEDICAID, SELFPAY ==
[2023-03-27 11:42] VITALS: BMI 42.0
[2023-06-12 19:13] VITALS: BP 171/89; PULSE 86; RESP 18; TEMP 36.7; O2SAT 96
--- NOTE | 2023-06-12 20:02 | USR_ITS ---
PROCEDURE INFORMATION: Exam: US Duplex Left Lower Extremity Veins, Limited Exam date and time: 06/12/2023 8:28 PM Age: 52 years old Clinical indication: Pain; Leg, lower; Left TECHNIQUE: Imaging protocol: Real-time duplex ultrasound of the left extremity with 2-D torres scale, color Doppler flow and spectral waveform analysis including responses to compression and other maneuvers (when performed) with image documentation. Limited exam focused on the left lower extremity veins. COMPARISON: US soft tissue/extremity [id number] 06/15/2021 5:14 AM FINDINGS: Left deep veins: Unremarkable. The common femoral, femoral, proximal profunda femoral and popliteal veins are patent without thrombus. Normal Doppler waveforms. Normal compressibility and/or augmentation response. Superficial veins: Unremarkable. Saphenofemoral junction is patent without thrombus. Soft tissues: Unremarkable. US/[place] [id number] IMPRESSION: No evidence of deep vein thrombosis.
[2023-06-12 20:05] LABS: Basophils % 0.6 %; Eosinophils # 0.1 10^3/uL (0.0-0.8); Eosinophils % 0.8 %; Hematocrit 42.2 % (36-47); Lymphocytes # 1.8 10^3/uL (0.8-4.8); Lymphocytes % 25.3 %; Mean Corpuscular Hemoglobin 27.3 pg (27-33); Mean Corpuscular Volume 87.9 fl (85-98); Mean Platelet Volume 9.5 fL (7.4-10.4); Monocytes # 0.5 10^3/uL (0.2-0.9); Monocytes % 6.9 %; Neutrophils # 4.73 10^3/uL (1.8-7.7); Neutrophils % 66.1 %; Nucleated Red Blood Cells % 0 %; Platelet Count 338 10^3/cmm (157-399); Red Cell Distribution Width 14.3 % (12.1-15.1); White Blood Count 7.15 10^3/uL (3.29-11.43)
[2023-06-12 20:15] VITALS: RESP 16
[2023-06-12] MEDS: ondansetron 2 mg/ML SDV 2 mL 4 MG IVP (20:15)
[2023-06-12] MEDS: morphine 4 mg/mL SDV 1 mL IVP (20:15)
[2023-06-12 20:17] VITALS: BP 183/115; PULSE 80; RESP 16; O2SAT 95
[2023-06-12 20:21] LABS: Add Urine Microscopic? NO; Charge for UA Resulting for Rev
--- NOTE | 2023-06-12 20:27 | W.ED.FEMALGU ---
HPI - Female Genitourinary General: Chief complaint: Urogenital-Female Stated complaint: left leg possible infection from surgery Time Seen by Provider: 06/12/23 19:59 Source: patient Mode of arrival: ambulatory Limitations: no limitations History of Present Illness: 52-year-old female who had surgery on her left lower leg 3 weeks ago she states she has been having leg pain since then she is concerned about a possible infection states she also has had some dysuria and nausea. She is well-appearing here she denies any fevers at home. Associated symptoms: Deny abdominal pain, headache(s) or nausea Review of Systems Const: Denies: fever(s) or chills Eyes: Denies: eye discomfort ENMT: Denies: throat pain or dental pain Card: Denies: chest pain Resp: Denies: dyspnea GI: Denies: abdominal pain, nausea, vomiting or diarrhea : Reports: dysuria Musc: Reports: extremity pain; Denies: neck pain or back pain Skin/Breast: Denies: rash Neuro: Denies: headache(s) PFSH ED PFSH: Medical History Abnormal reflex COPD (chronic obstructive pulmonary disease) GERD (gastroesophageal reflux disease) Helicobacter pylori gastritis HTN (hypertension) Neck pain Psychiatric care Psychiatric care Kimberly patel Surgical History History of cholecystectomy History of esophagogastroduodenoscopy Hx of section Hx of colonoscopy 2020 [facility] Hx of hysterectomy Family History Family/Other Cancer Diabetes Father Diabetes Hyperlipidemia Hypertension Stroke Mother Hypertension Stroke CAD (coronary artery disease) Rheumatoid arthritis Other Major depressive disorder, recurrent severe without psychotic features Panic disorder [episodic paroxysmal anxiety] Post-traumatic stress disorder, chronic Social History Smoking and tobacco status: never smoked Second hand smoke exposure: Yes Alcohol intake: never Substance/Drug Use: never Physical Exam Const: COMMON NORMALS: no acute distress, patient oriented x3 and healthy appearing HENMT: COMMON NORMALS: normocephalic and atraumatic HEAD & SCALP: normocephalic and atraumatic Eye: COMMON NORMALS: Equal, round and reactive pupils present and EOMs intact bilaterally PUPIL: Yes Equal, round and reactive pupils present Neck/C-Spine: COMMON NORMALS: full ROM and supple Chest: COMMONS NORMALS: normal inspection of the chest Resp: COMMON NORMALS: normal respiratory effort Cardio: COMMON NORMALS: regular rate, regular rhythm and No murmurs present (Cardio) RATE: regular rate RHYTHM: regular rhythm GI: COMMON NORMALS: Normal to inspection, nondistended, normoactive bowel sounds present, Soft to palpation, non-tender and no masses PALPATION: Yes Soft to palpation Extremity: COMMON NORMALS: normal to inspection and full ROM NARRATIVE EXTREMITY EXAM: Incision over left lower legs clean dry intact distal pulses intact no redness Neuro: COMMON NORMALS: patient oriented x3, moves all extremities and no focal motor deficits Psych: COMMON NORMALS: mental status grossly normal, Normal thought process present and cooperative THOUGHT PROCESS: Normal thought process present Skin: COMMON NORMALS: no rashes or lesions noted and no wounds GENERAL SKIN EXAM: no rashes or lesions noted Course Vital Signs: Vital signs: Vital Signs Temperature 98.0 F 06/12/23 19:13 Pulse Rate 80 06/12/23 20:17 Respiratory Rate 16 06/12/23 20:17 Blood Pressure 183/115 06/12/23 20:17 Pulse Oximetry 95 06/12/23 20:17 Oxygen Delivery Me thod Room Air 06/12/23 19:13 MDM - Female Medical Decision Making Patient presents here with leg pain on exam she has no signs of cellulitis blood work is all normal ultrasound shows no DVT is likely postop pain she is to follow-up with her surgeon she is return if worsening she understands agrees to plan. Medical Records I reviewed the patient's medical records. Lab Data I reviewed the patient's lab results. 06/12/23 19:59 06/12/23 19:59 Radiology Impressions Venous Duplex 06/12/23 20:02 IMPRESSION: No evidence of deep vein thrombosis. Laboratory Results WBC 7.15 10^3/uL (3.29-11.43) 06/12/23 19:59 RBC 4.80 10^6/uL (3.85-5.65) 06/12/23 19:59 Hgb 13.10 g/dL (11.27-16.99) 06/12/23 19:59 Hct 42.2 % (36-47) 06/12/23 19:59 MCV 87.9 fl (85-98) 06/12/23 19:59 MCH 27.3 pg (27-33) 06/12/23 19:59 MCHC 31.0 g/dL (30-55) 06/12/23 19:59 RDW 14.3 % (12.1-15.1) 06/12/23 19:59 Plt Count 338 10^3/cmm (157-399) 06/12/23 19:59 MPV 9.5 fL (7.4-10.4) 06/12/23 19:59 Neut % (Auto) 66.1 % 06/12/23 19:59 Lymph % (Auto) 25.3 % 06/12/23 19:59 [place] % (Auto) 6.9 % 06/12/23 19:59 Eos % (Auto) 0.8 % 06/12/23 19:59 Baso % (Auto) 0.6 % 06/12/23 19:59 Neut # (Auto) 4.73 10^3/uL (1.8-7.7) 06/12/23 19:59 Lymph # (Auto) 1.8 10^3/uL (0.8-4.8) 06/12/23 19:59 [place] # (Auto) 0.5 10^3/uL (0.2-0.9) 06/12/23 19:59 Eos # (Auto) 0.1 10^3/uL (0.0-0.8) 06/12/23 19:59 Baso # (Auto) 0.0 10^3/uL (0.0-0.1) 06/12/23 19:59 Nucleated RBC % (auto) 0 % 06/12/23 19:59 Nucleated RBCs # 0.0 /100WBC 06/12/23 19:59 ESR 21 mm/hr (0-15) H 06/12/23 19:59 Sodium 138 mmol/L (136-145) 06/12/23 19:59 Potassium 3.8 mmol/L (3.5-5.1) 06/12/23 19:59 Chloride 99 mmol/L (98-107) 06/12/23 19:59 Carbon Dioxide 30 mmol/L (22-29) H 06/12/23 19:59 Anion Gap 12.8 (5-19) 06/12/23 19:59 BUN 12 mg/dL (6-20) 06/12/23 19:59 Creatinine 0.6 mg/dL (0.5-0.9) 06/12/23 19:59 GFR Calculation 105.4 mL/min (90-130) 06/12/23 19:59 Glucose 95 mg/dL (65-115) 06/12/23 19:59 Calculated Osmolality 286 mOsm/kg (285-295) 06/12/23 19:59 Calcium 9.0 mg/dL (8.5-10.5) 06/12/23 19:59 Total Bilirubin 0.8 mg/dL (0.15-1.2) 06/12/23 19:59 AST 12 U/L (0-32) 06/12/23 19:59 ALT 13 U/L (0-33) 06/12/23 19:59 Alkaline Phosphatase 113 U/L (35-105) H 06/12/23 19:59 C-Reactive Protein 3.4 mg/L (0.0-4.9) 06/12/23 19:59 Total Protein 7.2 g/dL (6.6-8.7) 06/12/23 19:59 Albumin 4.1 g/dL (3.5-5.2) 06/12/23 19:59 Globulin 3.1 g/dL (1.3-4.6) 06/12/23 19:59 Urine Color Yellow (Yellow) 06/12/23 20:20 Urine Appearance Clear (CLEAR) 06/12/23 20:20 Urine pH 5 (5-7) 06/12/23 20:20 Ur Specific [place] 1.010 (1.005-1.030) 06/12/23 20:20 Urine Protein Neg (Negative) 06/12/23 20:20 Urine Glucose (UA) Norm (Normal) 06/12/23 20:20 Urine Ketones Negative (Negative) 06/12/23 20:20 Urine Blood Neg (Negative) 06/12/23 20:20 Urine Nitrate Negative (Negative) 06/12/23 20:20 Urine Bilirubin Neg (Negative) 06/12/23 20:20 Urine Urobilinogen Norm mg/dL (Negative) 06/12/23 20:20 Ur Leukocyte Esterase Negative (Negative) 06/12/23 20:20 Discharge Plan Discharge Patient Disposition: Home Clinical Impression: Left leg pain Condition: Stable Prescriptions: No Action (DME) night splint to left See Rx Instructions .Route .MEDSUPPLY Qty: 1 0RF Rx Instructions: As directed (DME) Cam Boot to the left See Rx Instructions .Route .MEDSUPPLY Qty: 1 0RF Rx Instructions: As directed (DME) Thumb Spika Splint See Rx Instructions .Route .MEDSUPPLY Qty: 1 0RF Rx Instructions: As directed lidocaine HCl 10 mg/mL (1 %) solution 10 ml Tendon Sheath Inj. ONCE Qty: 1 0RF triamcinolone acetonide [Kenalog] 40 mg/mL suspension 20 mg Tendon Sheath Inj. ONCE Qty: 0.5 0RF pantoprazole [Protonix] 40 mg tablet,delayed release (DR/EC) 40 mg PO BID 42 Days Qty: 84 0RF metoprolol tartrate 50 mg tablet 50 mg PO BID Qty: 180 3RF amlodipine 10 mg tablet 10 mg PO BEDTIME dicyclomine 20 mg tablet 20 mg PO QID Qty: 120 1RF hydralazine 100 mg tablet 100 mg PO TID Qty: 300 3RF (DME) blood pressure monitor Kit See Rx Instructions .Route Qty: 1 0RF Rx Instructions: As directed gabapentin 300 mg capsule 300 mg PO TID Qty: 90 0RF Rx Instructions: patient can take 600mg at night diclofenac sodium [Voltaren Arthritis Pain] 1 % gel 4 g topical QID PRN (Reason: Pain) Qty: 100 0RF Rx Instructions: apply to single knee, ankle, foot; for foot includes sole/toes/top of foot (DME) Night Splint See Rx Instructions .Route .MEDSUPPLY Qty: 1 0RF Rx Instructions: As directed by HOME (DME) Night Splint See Rx Instructions .Route .MEDSUPPLY Qty: 1 0RF Rx Instructions: As directed topiramate [Topamax] 100 mg tablet 100 mg PO DAILY 90 Days Qty: 90 3RF Rx Instructions: Take 1 tablet daily clonazepam 0.5 mg tablet 0.5 mg PO BID PRN (Reason: anxiety/panic) Qty: 60 0RF trazodone 150 mg tablet See Rx Instructions .ROUTE .COMPLEX Qty: 30 1RF Dose Instruction: TAKE 1 TABLET BY MOUTH AT BEDTIME Rx Instructions: TAKE 1 TABLET BY MOUTH AT BEDTIME prazosin 5 mg capsule See Rx Instructions .ROUTE .COMPLEX Qty: 30 1RF Dose Instruction: TAKE 1 CAPSULE BY MOUTH EVERYDAY AT BEDTIME Rx Instructions: TAKE 1 CAPSULE BY MOUTH EVERYDAY AT BEDTIME quetiapine 300 mg tablet extended release 24 hr See Rx Instructions .ROUTE .COMPLEX Qty: 30 1RF Dose Instruction: TAKE 1 TABLET BY MOUTH EVERYDAY AT BEDTIME Rx Instructions: TAKE 1 TABLET BY MOUTH EVERYDAY AT BEDTIME fluoxetine 40 mg capsule See Rx Instructions .ROUTE .COMPLEX Qty: 60 1RF Dose Instruction: TAKE 2 CAPSULES BY MOUTH IN THE MORNING Rx Instructions: TAKE 2 CAPSULES BY MOUTH IN THE MORNING hydrocodone-acetaminophen 10-325 mg tablet 1 tab PO Q6H PRN (Reason: pain) 7 Days Qty: 28 0RF nitroglycerin 0.6 mg/hr patch 24 hour See Rx Instructions .ROUTE .COMPLEX Qty: 30 1RF Dose Instruction: APPLY 1 PATCH NEEDED FOR PLANTAR FASCIA PAIN, ALLOW NITRATE FREE INTERVAL OF 10-12HRS/24HR PERIOD Rx Instructions: APPLY 1 PATCH NEEDED FOR PLANTAR FASCIA PAIN, ALLOW NITRATE FREE INTERVAL OF 10-12HRS/24HR PERIOD albuterol sulfate 90 mcg/actuation Hfa Aerosol Inhaler 1 - 2 puff INHALATION Q4H PRN (Reason: Shortness Of Breath) aspirin 81 mg Tablet,Chewable 81 mg PO QAM ipratropium-albuterol 0.5 mg-3 mg(2.5 mg base)/3 mL solution for nebulization 3 ml INHALATION DAILY PRN (Reason: Shortness Of Breath) polyethylene glycol 3350 [Miralax] 17 gram/dose powder 17 g PO DAILY PRN (Reason: Constipation) budesonide-formoterol [Symbicort] 160-4.5 mcg/actuation Hfa Aerosol Inhaler 2 puff INHALATION Q12H chlorthalidone 50 mg tablet 50 mg PO QAM losartan 100 mg tablet 100 mg PO QAM montelukast 10 mg tablet 10 mg PO DAILY hydroxychloroquine 200 mg tablet 200 mg PO BID isosorbide mononitrate 60 mg tablet extended release 24 hr 60 mg PO DAILY nitroglycerin [Nitrostat] 0.4 mg Tablet, Sublingual 0.4 mg SUBLINGUAL Q5M PRN (Reason: Chest Pain) Rx Instructions: do not exceed 3 doses per episode docusate sodium [Colace] 100 mg capsule 100 mg PO BID PRN (Reason: stool softener) promethazine 25 mg tablet 25 mg PO Q6H PRN (Reason: nausea and vomiting) Qty: 20 0RF diclofenac sodium 50 mg tablet,delayed release (DR/EC) 50 mg PO Q12H PRN (Reason: pain) Qty: 20 0RF methocarbamol 750 mg tablet 750 mg PO TID Qty: 14 0RF Ajovy Autoinjector 225 mg/1.5 mL auto-injector 225 mg SUBCUT .Q30DAY naproxen [Naprosyn] 500 mg tablet 500 mg PO BID PRN (Reason: pain) Qty: 20 0RF Discharge Orders: Discharge ED (Routine); Ordered 06/12/23 Ordered By: Leon Moura Referrals: Alpesh Garcia MD [Primary Care Provider] - Discharge Diet: Advance as tolerated Discharge Activity: Resume usual activity Patient Instructions: Leg Pain (ED) Coding Level of Care Code ED Ekg Monitor for 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
[2023-06-12 20:28] LABS: Alanine Aminotransferase 13 U/L (0-33); Albumin Level 4.1 g/dL (3.5-5.2); Alkaline Phosphatase 113 U/L (35-105); Anion Gap 12.8 (5-19); Aspartate Amino Transferase 12 U/L (0-32); Blood Urea Nitrogen 12 mg/dL (6-20); C Reactive Protein 3.4 mg/L (0.0-4.9); Carbon Dioxide 30 mmol/L (22-29); Chloride 99 mmol/L (98-107); Erythrocyte Sedimentation Rate 21 mm/hr (0-15); Globulin 3.1 g/dL (1.3-4.6); Glomerular Filtration Rate 105.4 mL/min (90-130); Glucose 95 mg/dL (65-115); Osmolality Calculated 286 mOsm/kg (285-295); Potassium 3.8 mmol/L (3.5-5.1); Sodium 138 mmol/L (136-145); Total Bilirubin 0.8 mg/dL (0.15-1.2); Total Protein 7.2 g/dL (6.6-8.7)
[2023-06-12 20:31] LABS: Bilirubin Urine Neg (Negative); Blood Urine Neg (Negative); Glucose Urine UA Norm (Normal); Ketones Urine Negative (Negative); Leukocyte Esterase Urine Negative (Negative); Nitrate Urine Negative (Negative); Protein Urine Neg (Negative); Urine Appearance Clear (CLEAR); Urine Color Yellow (Yellow); Urobilinogen Urine Norm (Negative); pH Urine 5 (5-7)
[2023-06-12 20:58] VITALS: BP 139/83; PULSE 68; RESP 16; O2SAT 95
== END 2023-06-12 21:02 | disposition home or self-care (01) ==
PROVIDERS: Nurse Practitioner Family; Emergency Provider Emergency Medicine; PCP Family Medicine
DX: M79.605 Pain in left leg (principal); Z79.82 Long term (current) use of aspirin; Z77.22 Contact with and (suspected) exposure to environmental tobacco smoke (acute) (chronic); J44.9 Chronic obstructive pulmonary disease, unspecified; I10 Essential (primary) hypertension
CPT/HCPCS: 36415; 80053; 81003; 85025; 85651; 86140; 93971; 96374; 96375; 99284; J2270; J2405

== ENCOUNTER → 2023-06-25 16:33 | Outpatient (BNVA) | payer MEDICAID, SELFPAY ==
[2023-03-27 11:42] VITALS: BMI 42.0
== END ==
PROVIDERS: PCP Family Medicine; Visit Provider Podiatrist Foot & Ankle Surgery
DX: R73.03 Prediabetes (principal); M72.2 Plantar fascial fibromatosis; Z98.890 Other specified postprocedural states
CPT/HCPCS: 36415; 83036; 99024

== ENCOUNTER 2023-06-27 07:59 | Emergency (ER) | payer MEDICAID, SELFPAY ==
[2023-03-27 11:42] VITALS: BMI 42.0
[2023-06-27 08:09] VITALS: BP 211/135; PULSE 88; RESP 18; O2SAT 96; BMI 42.4
[2023-06-27 08:20] VITALS: BP 199/126; PULSE 77; RESP 19; O2SAT 96
--- NOTE | 2023-06-27 08:22 | ED_ITS ---
HPI - Weakness General: Chief complaint: Weakness Stated complaint: weakness Time Seen by Provider: 06/27/23 08:07 Source: patient Mode of arrival: ambulatory History of Present Illness: 52-year-old female presents to the emergency room complaining of generalized weakness lightheaded and dizziness when she first stands out of a near syncopal sensation. She is also complaining of polyphagia polydipsia and polyuria. She is concerned she may have diabetes as she states she has had some upper respiratory symptoms. She also is very concerned because she states when she wakes up she feels like she needs to eat sugar right away. Complaint: generalized weakness Onset (ago): day(s) (4-5) Duration: intermittent Location: generalized Severity: mild Relieving factors: none Exacerbating factors: none Associated symptoms: Denies chest pain, chills, confusion, melena, decreased appetite, diaphoresis, dysuria, easy bruising, fever(s), headache(s), myalgias, nausea, rash, short of breath, syncope or vomiting Review of Systems Const: Reports: fatigue and malaise; Denies: fever(s), chills or diaphoresis ENMT: Denies: throat pain, ear or mastoid pain, nasal discharge or nasal congestion Card: Reports: lightheadedness and pre-syncope; Denies: chest pain, palpitations, irregular heart rhythm or syncope Resp: Denies: dyspnea, productive cough or non-productive cough GI: Denies: abdominal pain, nausea, vomiting or melena : Denies: dysuria, urinary frequency or urinary urgency Musc: Denies: neck pain or back pain Skin/Breast: Denies: rash or pruritus Neuro: Denies: headache(s) or confusion Rui/Lymph: Denies: easy bruising PFS ED PFSH: Medical History Abnormal reflex COPD (chronic obstructive pulmonary disease) GERD (gastroesophageal reflux disease) Helicobacter pylori gastritis HTN (hypertension) Neck pain Psychiatric care Psychiatric care Kimberly patel Surgical History History of cholecystectomy History of esophagogastroduodenoscopy Hx of section Hx of colonoscopy 2020 [facility] Hx of hysterectomy Family History Family/Other Cancer Diabetes Father Diabetes Hyperlipidemia Hypertension Stroke Mother Hypertension Stroke CAD (coronary artery disease) Rheumatoid arthritis Other Major depressive disorder, recurrent severe without psychotic features Panic disorder [episodic paroxysmal anxiety] Post-traumatic stress disorder, chronic Social History Smoking and tobacco status: never smoked Second hand smoke exposure: Yes Alcohol intake: never Substance/Drug Use: never Physical Exam Const: GENERAL APPEARANCE: cooperative and comfortable ORIENTATION/CONSCIOUSNESS: Yes awake, Yes oriented to person, Yes oriented to place and Yes oriented to time HENMT: COMMON NORMALS: normocephalic, atraumatic and hearing grossly normal bilaterally HEAD & SCALP: normocephalic and atraumatic Resp: COMMON NORMALS: normal respiratory effort, No retractions, No use of accessory muscles and clear to auscultation bilaterally AUSCULTATION: clear to auscultation bilaterally Cardio: COMMON NORMALS: regular rate, regular rhythm and No murmurs present (Cardio) RATE: regular rate RHYTHM: regular rhythm GI: COMMON NORMALS: Soft to palpation and No hepatosplenomegaly present AUSCULTATION: Yes normoactive bowel sounds PALPATION: Yes Soft to palpation, No Tenderness to palpation present (GI), No Guarding due to palpation present (GI) and Yes No hepatosplenomegaly present Extremity: COMMON NORMALS: normal to inspection, capillary refill normal, no clubbing, cyanosis or edema, no calf tenderness and no pedal edema Neuro: SENSORIUM/ORIENTATION: Yes oriented to person, Yes oriented to place and Yes oriented to time Skin: COMMON NORMALS: no rashes or lesions noted GENERAL SKIN EXAM: no rashes or lesions noted Course Vital Signs: Vital signs: Vital Signs Pulse Rate 85 06/27/23 11:16 Respiratory Rate 18 06/27/23 11:16 Blood Pressure 180/110 06/27/23 12:25 Pulse Oximetry 100 06/27/23 11:16 Oxygen Delivery Me thod Room Air 06/27/23 11:16 MDM - Weakness Medical Decision Making Labs and imaging reviewed no significant findings noted. No change in medications at this time continue current medications and follow-up with primary care doctor may need to have adjustments made in her antihypertensive regimen did not make any changes at this time. Follow-up with primary care within the next week. Because of her complaint of orthostatic-like symptoms did not add any further antihypertensives as she is already on several that may worsen postural hypotension although she does not have any at this time. Medical Records I reviewed the patient's medical records. Lab Data I reviewed the patient's lab results. 06/27/23 08:24 06/27/23 08:24 Laboratory Results WBC 5.71 10^3/uL (3.29-11.43) 06/27/23 08:24 RBC 4.85 10^6/uL (3.85-5.65) 06/27/23 08:24 Hgb 13.60 g/dL (11.27-16.99) 06/27/23 08:24 Hct 43.3 % (36-47) 06/27/23 08:24 MCV 89.3 fl (85-98) 06/27/23 08:24 MCH 28.0 pg (27-33) 06/27/23 08:24 MCHC 31.4 g/dL (30-55) 06/27/23 08:24 RDW 14.3 % (12.1-15.1) 06/27/23 08:24 Plt Count 286 10^3/cmm (157-399) 06/27/23 08:24 MPV 9.6 fL (7.4-10.4) 06/27/23 08:24 Neut % (Auto) 56.4 % 06/27/23 08:24 Lymph % (Auto) 31.3 % 06/27/23 08:24 [place] % (Auto) 9.5 % 06/27/23 08:24 Eos % (Auto) 1.9 % 06/27/23 08:24 Baso % (Auto) 0.7 % 06/27/23 08:24 Neut # (Auto) 3.22 10^3/uL (1.8-7.7) 06/27/23 08:24 Lymph # (Auto) 1.8 10^3/uL (0.8-4.8) 06/27/23 08:24 [place] # (Auto) 0.5 10^3/uL (0.2-0.9) 06/27/23 08:24 Eos # (Auto) 0.1 10^3/uL (0.0-0.8) 06/27/23 08:24 Baso # (Auto) 0.0 10^3/uL (0.0-0.1) 06/27/23 08:24 Nucleated RBC % (auto) 0 % 06/27/23 08:24 Nucleated RBCs # 0.0 /100WBC 06/27/23 08:24 Sodium 141 mmol/L (136-145) 06/27/23 08:24 Potassium 4.1 mmol/L (3.5-5.1) 06/27/23 08:24 Chloride 103 mmol/L (98-107) 06/27/23 08:24 Carbon Dioxide 28 mmol/L (22-29) 06/27/23 08:24 Anion Gap 14.1 (5-19) 06/27/23 08:24 BUN 13 mg/dL (6-20) 06/27/23 08:24 Creatinine 0.8 mg/dL (0.5-0.9) 06/27/23 08:24 GFR Calculation 75.6 mL/min (90-130) L 06/27/23 08:24 Glucose 102 mg/dL (65-115) 06/27/23 08:24 POC Glucose 109 mg/dL (70-110) 06/27/23 08:27 Calculated Osmolality 292 mOsm/kg (285-295) 06/27/23 08:24 Calcium 9.3 mg/dL (8.5-10.5) 06/27/23 08:24 Total Bilirubin 0.7 mg/dL (0.15-1.2) 06/27/23 08:24 AST 13 U/L (0-32) 06/27/23 08:24 ALT 16 U/L (0-33) 06/27/23 08:24 Alkaline Phosphatase 111 U/L (35-105) H 06/27/23 08:24 Total Protein 7.4 g/dL (6.6-8.7) 06/27/23 08:24 Albumin 4.4 g/dL (3.5-5.2) 06/27/23 08:24 Globulin 3.0 g/dL (1.3-4.6) 06/27/23 08:24 Lipase 50 U/L (13-60) 06/27/23 08:24 Urine Color Yellow (Yellow) 06/27/23 09:03 Urine Appearance Clear (CLEAR) 06/27/23 09:03 Urine pH 5 (5-7) 06/27/23 09:03 Ur Specific [place] 1.020 (1.005-1.030) 06/27/23 09:03 Urine Protein Neg (Negative) 06/27/23 09:03 Urine Glucose (UA) Norm (Normal) 06/27/23 09:03 Urine Ketones Negative (Negative) 06/27/23 09:03 Urine Blood 2+ (Negative) H 06/27/23 09:03 Urine Nitrate Negative (Negative) 06/27/23 09:03 Urine Bilirubin Neg (Negative) 06/27/23 09:03 Urine Urobilinogen Norm mg/dL (Negative) 06/27/23 09:03 Ur Leukocyte Esterase Negative (Negative) 06/27/23 09:03 Urine RBC 0-4 /hpf (0-2) H 06/27/23 09:03 Urine WBC 0-4 /hpf (0-5) H 06/27/23 09:03 Ur Squamous Epith Cells 10-15 /hpf (0-5) H 06/27/23 09:03 Amorphous Sediment Not Reportable 06/27/23 09:03 Urine Bacteria 1+ /hpf (NONE) H 06/27/23 09:03 Discharge Plan Discharge Patient Disposition: Home Clinical Impression: Weakness, HTN (hypertension) Condition: Stable Prescriptions: No Action (DME) night splint to left See Rx Instructions .Route .MEDSUPPLY Qty: 1 0RF Rx Instructions: As directed (DME) Cam Boot to the left See Rx Instructions .Route .MEDSUPPLY Qty: 1 0RF Rx Instructions: As directed (DME) Thumb Spika Splint See Rx Instructions .Route .MEDSUPPLY Qty: 1 0RF Rx Instructions: As directed lidocaine HCl 10 mg/mL (1 %) solution 10 ml Tendon Sheath Inj. ONCE Qty: 1 0RF pantoprazole [Protonix] 40 mg tablet,delayed release (DR/EC) 40 mg PO BID 42 Days Qty: 84 0RF amlodipine 10 mg tablet 10 mg PO BEDTIME dicyclomine 20 mg tablet 20 mg PO QID Qty: 120 1RF hydralazine 100 mg tablet 100 mg PO TID Qty: 300 3RF (DME) blood pressure monitor Kit See Rx Instructions .Route Qty: 1 0RF Rx Instructions: As directed sulfamethoxazole-trimethoprim [Bactrim DS] 800-160 mg tablet 1 tab PO BID Qty: 14 0RF (DME) custom insoles See Rx Instructions .Route .MEDSUPPLY Qty: 1 0RF Rx Instructions: As directed diclofenac sodium [Voltaren Arthritis Pain] 1 % gel 4 g topical QID PRN (Reason: Pain) Qty: 100 0RF Rx Instructions: apply to single knee, ankle, foot; for foot includes sole/toes/top of foot (DME) Night Splint See Rx Instructions .Route .MEDSUPPLY Qty: 1 0RF Rx Instructions: As directed by HOME (DME) Night Splint See Rx Instructions .Route .MEDSUPPLY Qty: 1 0RF Rx Instructions: As directed topiramate [Topamax] 100 mg tablet 100 mg PO DAILY 90 Days Qty: 90 3RF clonazepam 0.5 mg tablet 0.5 mg PO BID PRN (Reason: anxiety/panic) Qty: 60 0RF nitroglycerin 0.6 mg/hr patch 24 hour See Rx Instructions .ROUTE .COMPLEX Qty: 30 1RF Dose Instruction: APPLY 1 PATCH NEEDED FOR PLANTAR FASCIA PAIN, ALLOW NITRATE FREE INTERVAL OF 10-12HRS/24HR PERIOD Rx Instructions: APPLY 1 PATCH NEEDED FOR PLANTAR FASCIA PAIN, ALLOW NITRATE FREE INTERVAL OF 10-12HRS/24HR PERIOD albuterol sulfate 90 mcg/actuation Hfa Aerosol Inhaler 1 - 2 puff INHALATION Q4H PRN (Reason: Shortness Of Breath) aspirin 81 mg Tablet,Chewable 81 mg PO QAM ipratropium-albuterol 0.5 mg-3 mg(2.5 mg base)/3 mL solution for nebulization 3 ml INHALATION DAILY PRN (Reason: Shortness Of Breath) polyethylene glycol 3350 [Miralax] 17 gram/dose powder 17 g PO DAILY PRN (Reason: Constipation) budesonide-formoterol [Symbicort] 160-4.5 mcg/actuation Hfa Aerosol Inhaler 2 puff INHALATION Q12H chlorthalidone 50 mg tablet 50 mg PO QAM losartan 100 mg tablet 100 mg PO QAM montelukast 10 mg tablet 10 mg PO DAILY hydroxychloroquine 200 mg tablet 200 mg PO BID isosorbide mononitrate 60 mg tablet extended release 24 hr 60 mg PO DAILY nitroglycerin [Nitrostat] 0.4 mg Tablet, Sublingual 0.4 mg SUBLINGUAL Q5M PRN (Reason: Chest Pain) Rx Instructions: do not exceed 3 doses per episode docusate sodium [Colace] 100 mg capsule 100 mg PO BID PRN (Reason: stool softener) promethazine 25 mg tablet 25 mg PO Q6H PRN (Reason: nausea and vomiting) Qty: 20 0RF diclofenac sodium 50 mg tablet,delayed release (DR/EC) 50 mg PO Q12H PRN (Reason: pain) Qty: 20 0RF methocarbamol 750 mg tablet 750 mg PO TID Qty: 14 0RF Ajovy Autoinjector 225 mg/1.5 mL auto-injector 225 mg SUBCUT .Q30DAY naproxen [Naprosyn] 500 mg tablet 500 mg PO BID PRN (Reason: pain) Qty: 20 0RF metoprolol tartrate 100 mg tablet 100 mg PO BID hydrocodone-acetaminophen 7.5-325 mg tablet See Rx Instructions .ROUTE .COMPLEX Rx Instructions: 1 tab orally every 4 to 6 hours as needed for pain fluoxetine 40 mg capsule 80 mg PO QAM prazosin 5 mg capsule 5 mg PO BEDTIME trazodone 150 mg tablet 150 mg PO BEDTIME gabapentin 300 mg capsule See Rx Instructions .ROUTE .COMPLEX Rx Instructions: 300 mg orally three times daily;patient can take 600mg at night quetiapine 300 mg tablet extended release 24 hr 300 mg PO BEDTIME Discharge Orders: Discharge ED (Routine); Ordered 06/27/23 Ordered By: Juan Sutton Referrals: Alpesh Garcia MD [Primary Care Provider] - Discharge Diet: Usual diet Discharge Activity: Increase activity as tolerated Patient Instructions: Opioid Safety, Pain Management Activity Restrictions/Additional Instructions: Follow-up with your primary care doctor if symptoms persist Stand Alone Forms: Work/School Release Coding Level of Care Code ED Egg Tester for 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
--- NOTE | 2023-06-27 08:22 | ECG_ITS ---
[facility] Test Date: 2023-06-27 Pat Name: Nani Pryor Department: Room: Gender: Female Qual Research Manager: : 1970 Requested By: Juan Lujan Order Number: [id number] Jaclyn MD: Tracy Bo M.D. Measurements Intervals [place] Rate: 70 P: 20 RI: 189 QRS: 11 QRSD: 94 T: 22 QT: 399 QTc: 432 Interpretive Statements SINUS RHYTHM Compared to ECG 04/15/2023 11:50:53 No significant changes Electronically Signed On 06-27-2023 17:20:30 CDT by Tracy Bo M.D. [email or web address]
--- NOTE | 2023-06-27 08:23 | XR_ITS ---
WS: [id number] Portable AP upright chest, 06/27/2023 Clinical Data: dyspnea/cough Comparison: Portable chest, 04/15/2023 Findings: No nodules, masses or effusions are seen. The heart is normal. The pulmonary vascularity is not increased. No pneumonia or pneumothorax is seen. Monitor leads are on the chest wall. Impression: Negative chest.
[2023-06-27 08:30] LABS: Glucose Point of Care 109 mg/dL (70-110)
[2023-06-27 08:34] LABS: Basophils % 0.7 %; Eosinophils # 0.1 10^3/uL (0.0-0.8); Eosinophils % 1.9 %; Hematocrit 43.3 % (36-47); Lymphocytes # 1.8 10^3/uL (0.8-4.8); Lymphocytes % 31.3 %; Mean Corpuscular HGB Conc 31.4 g/dL (30-55); Mean Corpuscular Volume 89.3 fl (85-98); Mean Platelet Volume 9.6 fL (7.4-10.4); Monocytes # 0.5 10^3/uL (0.2-0.9); Monocytes % 9.5 %; Neutrophils # 3.22 10^3/uL (1.8-7.7); Neutrophils % 56.4 %; Nucleated Red Blood Cells % 0 %; Platelet Count 286 10^3/cmm (157-399); Red Blood Count 4.85 10^6/uL (3.85-5.65); Red Cell Distribution Width 14.3 % (12.1-15.1); White Blood Count 5.71 10^3/uL (3.29-11.43)
[2023-06-27 08:51] LABS: Alanine Aminotransferase 16 U/L (0-33); Albumin Level 4.4 g/dL (3.5-5.2); Alkaline Phosphatase 111 U/L (35-105); Anion Gap 14.1 (5-19); Aspartate Amino Transferase 13 U/L (0-32); Blood Urea Nitrogen 13 mg/dL (6-20); Calcium 9.3 mg/dL (8.5-10.5); Carbon Dioxide 28 mmol/L (22-29); Chloride 103 mmol/L (98-107); Glomerular Filtration Rate 75.6 mL/min (90-130); Glucose 102 mg/dL (65-115); Lipase 50 U/L (13-60); Osmolality Calculated 292 mOsm/kg (285-295); Potassium 4.1 mmol/L (3.5-5.1); Sodium 141 mmol/L (136-145); Total Bilirubin 0.7 mg/dL (0.15-1.2); Total Protein 7.4 g/dL (6.6-8.7)
[2023-06-27 09:21] LABS: Add Urine Culture? No; Add Urine Microscopic? YES; Bacteria Urine 1+ /hpf; Bilirubin Urine Neg (Negative); Blood Urine 2+ (Negative); Glucose Urine UA Norm (Normal); Ketones Urine Negative (Negative); Leukocyte Esterase Urine Negative (Negative); Nitrate Urine Negative (Negative); Protein Urine Neg (Negative); RBC Urine 0-4 /hpf (0-2); Urine Appearance Clear (CLEAR); Urine Color Yellow (Yellow); Urobilinogen Urine Norm (Negative); WBC Urine 0-4 /hpf (0-5); pH Urine 5 (5-7)
[2023-06-27 11:16] VITALS: BP 200/106; PULSE 85; RESP 18; O2SAT 100
[2023-06-27] MEDS: hyDRALAzine 20 mg/mL INJ 1 mL IVP (11:40)
[2023-06-27 12:25] VITALS: BP 180/110
== END 2023-06-27 12:31 | disposition home or self-care (01) ==
PROVIDERS: Emergency Provider Family Medicine; PCP Family Medicine
DX: R53.1 Weakness (principal); I10 Essential (primary) hypertension; Z79.82 Long term (current) use of aspirin; Z77.22 Contact with and (suspected) exposure to environmental tobacco smoke (acute) (chronic); J44.9 Chronic obstructive pulmonary disease, unspecified
CPT/HCPCS: 36416; 71045; 80053; 81001; 82962; 83690; 85025; 93005; 96374; 99285; J0360

== ENCOUNTER 2023-06-29 18:35 | Emergency (ER) | payer MEDICAID, SELFPAY ==
[2023-03-27 11:42] VITALS: BMI 42.0
[2023-06-29] VITALS (7 sets, daily range): BP systolic 105–204; BP diastolic 72–114; PULSE 71–94; RESP 16–22; TEMP 36.6; O2SAT 95–99; BMI 42.4
--- NOTE | 2023-06-29 18:53 | XRR_ITS ---
PROCEDURE INFORMATION: Exam: XR Chest Exam date and time: 06/29/2023 7:02 PM Age: 52 years old Clinical indication: Chest pressure; Patient HX: C/O chest pain; Additional info: Cp TECHNIQUE: Imaging protocol: Radiologic exam of the chest. Views: 1 view. COMPARISON: CR XR chest 1V portable [id number] 06/27/2023 8:33 AM FINDINGS: Lungs: No consolidation. Pleural spaces: No pleural effusion. No pneumothorax. Heart/Mediastinum: No cardiomegaly. Bones/joints: Unremarkable. XR/XR chest 1V portable [id number] IMPRESSION: 1. No acute abnormality demonstrated. 2. There is no interval change from the prior examination.
--- NOTE | 2023-06-29 19:10 | W.ED.CHESTPA ---
HPI - Chest Pain General: Chief Complaint: Chest Pain Stated Complaint: chest pain, head pain, numbeness in arms Time Seen by Provider: 06/29/23 18:46 History of Present Illness: 52-year-old female with multiple complaints. She complains of chest discomfort, some shortness of breath, headache, and upper abdominal pain. This all seems to started today. She was seen a couple of days ago with hypertension. She notes that she had a recent leg surgery on the left. Pain to her chest is sharp. No fever. No cough. She states she gets short of breath with walking even the distance to her bathroom. Associated symptoms: Reports abdominal pain, dyspnea and nausea; Deny fever(s), palpitations or vomiting Review of Systems Const: Denies: fever(s) or chills ENMT: Denies: throat pain Card: Reports: chest pain; Denies: palpitations Resp: Reports: dyspnea; Denies: productive cough or non-productive cough GI: Reports: abdominal pain and nausea; Denies: vomiting or diarrhea Musc: Reports: back pain Neuro: Reports: headache(s) Psych: Reports: anxiety PFSH ED PFSH: Medical History Abnormal reflex COPD (chronic obstructive pulmonary disease) GERD (gastroesophageal reflux disease) Helicobacter pylori gastritis HTN (hypertension) Neck pain Psych[facility] care [facility] Surgical History History of cholecystectomy History of esophagogastroduodenoscopy Hx of section Hx of colonoscopy 2020 [facility] Hx of hysterectomy Family History Family/Other Cancer Diabetes Father Diabetes Hyperlipidemia Hypertension Stroke Mother Hypertension Stroke CAD (coronary artery disease) Rheumatoid arthritis Other Major depressive disorder, recurrent severe without psychotic features Panic disorder [episodic paroxysmal anxiety] Post-traumatic stress disorder, chronic Social History Smoking and tobacco status: never smoked Second hand smoke exposure: Yes Alcohol intake: never Substance/Drug Use: never Physical Exam Const: GENERAL APPEARANCE: cooperative and anxious; not ill appearing and not frail appearing HENMT: COMMON NORMALS: normocephalic, atraumatic and Normal external nose present HEAD & SCALP: normocephalic and atraumatic FACE & SINUS: normal facial exam and face symmetric NOSE: Normal external nose present Eye: COMMON NORMALS: Equal, round and reactive pupils present and EOMs intact bilaterally PUPIL: Yes Equal, round and reactive pupils present Neck/C-Spine: GENERAL: Yes trachea midline Chest: CHEST: Yes Symmetrical chest wall rise and Yes tenderness (left anterior chest) Resp: COMMON NORMALS: normal respiratory effort, No retractions, No use of accessory muscles and clear to auscultation bilaterally AUSCULTATION: clear to auscultation bilaterally Cardio: COMMON NORMALS: regular rate and regular rhythm RATE: regular rate RHYTHM: regular rhythm GI: COMMON NORMALS: Normal to inspection, nondistended, normoactive bowel sounds present PALPATION: Yes Tenderness to palpation present (GI) (epigastric) Extremity: COMMON NORMALS: no pedal edema Neuro: LEIGH ANN COMA SCALE: document GCS findings Leigh Ann coma scale eye opening: Spontaneous Mohawk coma scale verbal response: Orientated Leigh Ann coma scale motor response: Obey commands [place] coma scale total score: 15 SENSORY EXAM: Yes extremities (intact) Psych: COMMON NORMALS: speech normal SPEECH: Yes normal speech Skin: COMMON NORMALS: no rashes or lesions noted GENERAL SKIN EXAM: no rashes or lesions noted Course Vital Signs: Vital signs: Vital Signs Temperature 97.8 F 06/29/23 18:39 Pulse Rate 73 06/29/23 22:17 Respiratory Rate 16 06/29/23 22:17 Blood Pressure 105/72 06/29/23 22:17 Pulse Oximetry 96 06/29/23 22:17 Oxygen Delivery Me thod Room Air 06/29/23 22:17 MDM - Chest Pain Medical Decision Making Patient is very anxious on physical exam and interview. At first, pain was improved with morphine and GI cocktail. Pain seemed to come back a bit. Improved again with morphine and Ativan as well as Toradol. EKG showed a sinus rhythm with a rate of 75, normal axis, normal intervals, and no ST wave changes. Delta troponin at 2 hours is 1. BNP is 147. COVID swab is negative. Chest x-ray is negative. CBC and BMP are normal. D-dimer is high, but is always high with this patient by history. The patient is not tachycardic, she is in no way hypoxic. Pain is reproducible on palpation. She will be discharged to outpatient follow-up. To return for worsening symptoms. Lab Data 06/29/23 19:06/29/23 19: Radiology Impressions Chest X-Ray 06/29/23 18:53 IMPRESSION: 1. No acute abnormality demonstrated. 2. There is no interval change from the prior examination. Laboratory Results WBC 5.94 10^3/uL (3.29-11.43) 06/29/23: RBC 4.54 10^6/uL (3.85-5.65) 06/29/23: Hgb 12.60 g/dL (11.27-16.99) 06/29/23: Hct 39.8 % (36-47) 06/29/23: MCV 87.7 fl (85-98) 06/29/23: MCH 27.8 pg (27-33) 06/29/23: MCHC 31.7 g/dL (30-55) 06/29/23: RDW 14.5 % (12.1-15.1) 06/29/23: Plt Count 278 10^3/cmm (157-399) 06/29/23: MPV 9.7 fL (7.4-10.4) 06/29/23: Neut % (Auto) 58.6 % 06/29/23: Lymph % (Auto) 29.0 % 06/29/23: [place] % (Auto) 10.4 % 06/29/23: Eos % (Auto) 1.3 % 06/29/23: Baso % (Auto) 0.5 % 06/29/23: Neut # (Auto) 3.48 10^3/uL (1.8-7.7) 06/29/23: Lymph # (Auto) 1.7 10^3/uL (0.8-4.8) 06/29/23: [place] # (Auto) 0.6 10^3/uL (0.2-0.9) 06/29/23: Eos # (Auto) 0.1 10^3/uL (0.0-0.8) 06/29/23: Baso # (Auto) 0.0 10^3/uL (0.0-0.1) 06/29/23 19:31 Nucleated RBC % (auto) 0 % 06/29/23 19:31 Nucleated RBCs # 0.0 /100WBC 06/29/23 19:31 D-Dimer >= 20.00 ug/mLFEU (0-0.59) H 06/29/23 19:31 Sodium 139 mmol/L (136-145) 06/29/23 19:31 Potassium 4.0 mmol/L (3.5-5.1) 06/29/23 19:31 Chloride 101 mmol/L (98-107) 06/29/23 19:31 Carbon Dioxide 28 mmol/L (22-29) 06/29/23 19:31 Anion Gap 14.0 (5-19) 06/29/23 19:31 BUN 11 mg/dL (6-20) 06/29/23 19:31 Creatinine 0.9 mg/dL (0.5-0.9) 06/29/23 19:31 GFR Calculation 66.0 mL/min (90-130) L 06/29/23 19:31 Glucose 95 mg/dL (65-115) 06/29/23 19:31 Calculated Osmolality 287 mOsm/kg (285-295) 06/29/23 19:31 Calcium 9.1 mg/dL (8.5-10.5) 06/29/23 19:31 Total Bilirubin 0.9 mg/dL (0.15-1.2) 06/29/23 19:31 AST 13 U/L (0-32) 06/29/23 19:31 ALT 16 U/L (0-33) 06/29/23 19:31 Alkaline Phosphatase 106 U/L (35-105) H 06/29/23 19:31 Troponin T Baseline 11 ng/L (0-10) H 06/29/23 19:31 Troponin T 120 Minute 12.18 ng/L (0-10) H 06/29/23 21:25 Delta Troponin T 1.18 ABS# (0-10) 06/29/23 21:25 NT-Pro-B Natriuret Pep 147 pg/mL (0-125) H 06/29/23 19:31 Total Protein 7.0 g/dL (6.6-8.7) 06/29/23 19:31 Albumin 4.6 g/dL (3.5-5.2) 06/29/23 19:31 Globulin 2.4 g/dL (1.3-4.6) 06/29/23 19:31 SARS-CoV-2 Ag (Rapid) negative (Negative) 06/29/23 19:40 Discharge Plan Discharge Patient Disposition: Home Clinical Impression: Atypical chest pain, Panic disorder [episodic paroxysmal anxiety] Condition: Stable Prescriptions: No Action (DME) night splint to left See Rx Instructions .Route .MEDSUPPLY Qty: 1 0RF Rx Instructions: As directed (DME) Cam Boot to the left See Rx Instructions .Route .MEDSUPPLY Qty: 1 0RF Rx Instructions: As directed (DME) Thumb Spika Splint See Rx Instructions .Route .MEDSUPPLY Qty: 1 0RF Rx Instructions: As directed lidocaine HCl 10 mg/mL (1 %) solution 10 ml Tendon Sheath Inj. ONCE Qty: 1 0RF pantoprazole [Protonix] 40 mg tablet,delayed release (DR/EC) 40 mg PO BID 42 Days Qty: 84 0RF amlodipine 10 mg tablet 10 mg PO BEDTIME dicyclomine 20 mg tablet 20 mg PO QID Qty: 120 1RF hydralazine 100 mg tablet 100 mg PO TID Qty: 300 3RF (DME) blood pressure monitor Kit See Rx Instructions .Route Qty: 1 0RF Rx Instructions: As directed sulfamethoxazole-trimethoprim [Bactrim DS] 800-160 mg tablet 1 tab PO BID Qty: 14 0RF (DME) custom insoles See Rx Instructions .Route .MEDSUPPLY Qty: 1 0RF Rx Instructions: As directed diclofenac sodium [Voltaren Arthritis Pain] 1 % gel 4 g topical QID PRN (Reason: Pain) Qty: 100 0RF Rx Instructions: apply to single knee, ankle, foot; for foot includes sole/toes/top of foot (DME) Night Splint See Rx Instructions .Route .MEDSUPPLY Qty: 1 0RF Rx Instructions: As directed by HOME (DME) Night Splint See Rx Instructions .Route .MEDSUPPLY Qty: 1 0RF Rx Instructions: As directed topiramate [Topamax] 100 mg tablet 100 mg PO DAILY 90 Days Qty: 90 3RF clonazepam 0.5 mg tablet 0.5 mg PO BID PRN (Reason: anxiety/panic) Qty: 60 0RF nitroglycerin 0.6 mg/hr patch 24 hour See Rx Instructions .ROUTE .COMPLEX Qty: 30 1RF Dose Instruction: APPLY 1 PATCH NEEDED FOR PLANTAR FASCIA PAIN, ALLOW NITRATE FREE INTERVAL OF 10-12HRS/24HR PERIOD Rx Instructions: APPLY 1 PATCH NEEDED FOR PLANTAR FASCIA PAIN, ALLOW NITRATE FREE INTERVAL OF 10-12HRS/24HR PERIOD albuterol sulfate 90 mcg/actuation Hfa Aerosol Inhaler 1 - 2 puff INHALATION Q4H PRN (Reason: Shortness Of Breath) aspirin 81 mg Tablet,Chewable 81 mg PO QAM ipratropium-albuterol 0.5 mg-3 mg(2.5 mg base)/3 mL solution for nebulization 3 ml INHALATION DAILY PRN (Reason: Shortness Of Breath) polyethylene glycol 3350 [Miralax] 17 gram/dose powder 17 g PO DAILY PRN (Reason: Constipation) budesonide-formoterol [Symbicort] 160-4.5 mcg/actuation Hfa Aerosol Inhaler 2 puff INHALATION Q12H chlorthalidone 50 mg tablet 50 mg PO QAM losartan 100 mg tablet 100 mg PO QAM montelukast 10 mg tablet 10 mg PO DAILY hydroxychloroquine 200 mg tablet 200 mg PO BID isosorbide mononitrate 60 mg tablet extended release 24 hr 60 mg PO DAILY nitroglycerin [Nitrostat] 0.4 mg Tablet, Sublingual 0.4 mg SUBLINGUAL Q5M PRN (Reason: Chest Pain) Rx Instructions: do not exceed 3 doses per episode docusate sodium [Colace] 100 mg capsule 100 mg PO BID PRN (Reason: stool softener) promethazine 25 mg tablet 25 mg PO Q6H PRN (Reason: nausea and vomiting) Qty: 20 0RF diclofenac sodium 50 mg tablet,delayed release (DR/EC) 50 mg PO Q12H PRN (Reason: pain) Qty: 20 0RF methocarbamol 750 mg tablet 750 mg PO TID Qty: 14 0RF Ajovy Autoinjector 225 mg/1.5 mL auto-injector 225 mg SUBCUT .Q30DAY naproxen [Naprosyn] 500 mg tablet 500 mg PO BID PRN (Reason: pain) Qty: 20 0RF metoprolol tartrate 100 mg tablet 100 mg PO BID hydrocodone-acetaminophen 7.5-325 mg tablet See Rx Instructions .ROUTE .COMPLEX Rx Instructions: 1 tab orally every 4 to 6 hours as needed for pain fluoxetine 40 mg capsule 80 mg PO QAM prazosin 5 mg capsule 5 mg PO BEDTIME trazodone 150 mg tablet 150 mg PO BEDTIME gabapentin 300 mg capsule See Rx Instructions .ROUTE .COMPLEX Rx Instructions: 300 mg orally three times daily;patient can take 600mg at night quetiapine 300 mg tablet extended release 24 hr 300 mg PO BEDTIME Discharge Orders: Discharge ED (Routine); Ordered 06/29/23 Ordered By: Bright Mullins Referrals: Alpesh Garcia MD [Primary Care Provider] - 1-3 days Patient Instructions: Chest Pain (ED), Opioid Safety, Pain Management Activity Restrictions/Additional Instructions: Work-up in the emergency department revealed that your chest discomfort is not caused by a heart problem. It is likely related to chest wall inflammation, and possibly your blood pressure which was quite high on arrival. Take your blood pressure medication as scheduled, and take your night dose when you get home. Return for fever, worsening pain, any other concerning symptoms. 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
[2023-06-29 19:34] LABS: Basophils % 0.5 %; Eosinophils # 0.1 10^3/uL (0.0-0.8); Eosinophils % 1.3 %; Hematocrit 39.8 % (36-47); Lymphocytes # 1.7 10^3/uL (0.8-4.8); Mean Corpuscular HGB Conc 31.7 g/dL (30-55); Mean Corpuscular Hemoglobin 27.8 pg (27-33); Mean Corpuscular Volume 87.7 fl (85-98); Mean Platelet Volume 9.7 fL (7.4-10.4); Monocytes # 0.6 10^3/uL (0.2-0.9); Monocytes % 10.4 %; Neutrophils # 3.48 10^3/uL (1.8-7.7); Neutrophils % 58.6 %; Nucleated Red Blood Cells % 0 %; Platelet Count 278 10^3/cmm (157-399); Red Blood Count 4.54 10^6/uL (3.85-5.65); Red Cell Distribution Width 14.5 % (12.1-15.1); White Blood Count 5.94 10^3/uL (3.29-11.43)
[2023-06-29] MEDS: ondansetron 2 mg/ML SDV 2 mL 4 MG IVP (19:52)
[2023-06-29] MEDS: morphine 4 mg/mL SDV 1 mL IVP ×2 (19:52→21:00)
[2023-06-29] MEDS: lidocaine 2% viscous 15 ML, aluminum-mag hydrox-simethicon 30 ML, sucralfate oral liq 1 GM PO (19:53)
[2023-06-29 19:58] LABS: Troponin(5th) Baseline 11 ng/L (0-10)
[2023-06-29 20:05] LABS: D Dimer >= 20.00 ug/mLFEU (0-0.59)
[2023-06-29 20:06] LABS: Alanine Aminotransferase 16 U/L (0-33); Albumin Level 4.6 g/dL (3.5-5.2); Alkaline Phosphatase 106 U/L (35-105); Aspartate Amino Transferase 13 U/L (0-32); Blood Urea Nitrogen 11 mg/dL (6-20); Calcium 9.1 mg/dL (8.5-10.5); Carbon Dioxide 28 mmol/L (22-29); Chloride 101 mmol/L (98-107); Globulin 2.4 g/dL (1.3-4.6); Glucose 95 mg/dL (65-115); NT Pro B Type Natriuretic Pept 147 pg/mL (0-125); Osmolality Calculated 287 mOsm/kg (285-295); Sodium 139 mmol/L (136-145); Total Bilirubin 0.9 mg/dL (0.15-1.2)
[2023-06-29 20:12] LABS: SARS Covid-2 Antigen negative (Negative)
--- NOTE | 2023-06-29 20:34 | ECG_ITS ---
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 Measurements Intervals [place] Rate: 78 P: 44 FL: 174 QRS: 19 QRSD: 96 T: 18 QT: 431 QTc: 494 Interpretive Statements SINUS RHYTHM WITH SINUS ARRHYTHMIA Compared to ECG 06/29/2023 18:40:23 No significant changes Electronically Signed On 06-30-2023 16:02:32 CDT by Jonatan Max M.D. [id number]
--- NOTE | 2023-06-29 20:53 | ECG_ITS ---
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 Measurements Intervals [place] Rate: 76 P: 57 [place]: 182 QRS: 69 QRSD: 94 T: 20 QT: 403 QTc: 456 Interpretive Statements SINUS RHYTHM Compared to ECG 06/27/2023 08:30:38 No significant changes Electronically Signed On 06-30-2023 16:03:50 CDT by Jonatan Max M.D. [id number] f
[2023-06-29] MEDS: amlodipine 10 mg Tablet PO (20:55)
[2023-06-29] MEDS: enalaprilat 1.25 mg/mL Inj IVP (20:57)
[2023-06-29] MEDS: hyDRALAzine 20 mg/mL INJ 1 mL IVP (20:57)
[2023-06-29] MEDS: LORazepam 2 mg/mL INJ 1 mL 1 MG IVP (21:00)
[2023-06-29 21:54] LABS: Troponin 5 2HR 12.18 ng/L (0-10)
[2023-06-29 21:56] LABS: Troponin 5 2HR Delta 1.18 ABS# (0-10)
[2023-06-29] MEDS: ketorolac 30 mg/mL INJ IVP (22:15)
== END 2023-06-29 22:22 | disposition home or self-care (01) ==
PROVIDERS: Emergency Provider Emergency Medicine; PCP Family Medicine
DX: R07.89 Other chest pain (principal); F41.0 Panic disorder [episodic paroxysmal anxiety]
CPT/HCPCS: 36415; 71045; 80053; 83880; 84484; 85025; 85378; 87426; 93005; 96374; 96375; 96376; 99285; J0360; J1885; J2060; J2270; J2405; J3490

== ENCOUNTER 2023-07-01 08:21 | Outpatient (CLI) | payer MEDICAID, SELFPAY ==
[2023-03-27 11:42] VITALS: BMI 42.0
--- NOTE | 2023-07-01 08:36 | XR_ITS ---
WS: [id number] Exam: XR hip RT 2-3V wo/w pel* [id number] Date/Time of Exam: 07/01/2023 8:42 AM Reason For Exam: right hip pain Comparison 05/04/2023. No fracture or dislocation. The joint compartment is preserved. Normal soft tissues. IMPRESSION: 1. Unremarkable RIGHT hip. No change.
--- NOTE | 2023-07-01 08:50 | XR_ITS ---
WS: [id number] Exam: XR abdomen min 2V [id number] Date/Time of Exam: 07/01/2023 8:50 AM Reason For Exam: ABDOMINAL PAIN Comparison 11/21/2021. No bowel obstruction or free air. No sign of organ enlargement. Signs of prior cholecystectomy. Metal lic densities superimpose the central pelvic region and region of the LEFT hip. These may be artifact within the clothing with the significance is undetermined. IMPRESSION: 1. No acute abdominal process identified. 2. Metallic densities superimposing the pelvis and region of the LEFT hip of undetermined significanc e. These may be artifacts in the clothing.
== END 2023-07-01 08:22 | disposition home or self-care (01) ==
LOC: RAD 08:25
PROVIDERS: PCP Family Medicine; Visit Provider Family Medicine
DX: M25.551 Pain in right hip (principal); R10.9 Unspecified abdominal pain
CPT/HCPCS: 73502; 74019

== ENCOUNTER → 2023-07-07 09:37 | Outpatient (BNVA) | payer MEDICAID, SELFPAY ==
[2023-03-27 11:42] VITALS: BMI 42.0
== END ==
PROVIDERS: PCP Family Medicine; Referring Provider Family Medicine; Visit Provider Specialist
DX: S79.911A Unspecified injury of right hip, initial encounter; Y04.2XXA Assault by strike against or bumped into by another person, initial encounter; Y99.0 Civilian activity done for income or pay
CPT/HCPCS: 73502; 99204

== ENCOUNTER → 2023-07-08 07:06 | Outpatient (BNVA) | payer MEDICAID, SELFPAY ==
[2023-03-27 11:42] VITALS: BMI 42.0
== END ==
PROVIDERS: PCP Family Medicine; Visit Provider Student in an Organized Health Care Education/Training Program
DX: M65.4 Radial styloid tenosynovitis [de Quervain] (principal)
CPT/HCPCS: 99214

== ENCOUNTER 2023-07-09 06:20 | Day surgery (SDC) | payer MEDICAID, SELFPAY ==
[2023-03-27 11:42] VITALS: BMI 42.0
[2023-07-07 13:40] VITALS: BMI 42.0
[2023-07-09] VITALS (8 sets, daily range): BP systolic 150–186; BP diastolic 92–129; PULSE 63–87; RESP 14–18; TEMP 36.1–36.4; O2SAT 97–99; BMI 42.0
[2023-07-09] MEDS: sodium chloride 0.9% 1,000 ML 30 ML IV (07:06)
--- NOTE | 2023-07-09 07:25 | P.ANESASSM_ITS ---
Pre-Anesthetic Assessment Height/Weight: Height 1.63 m Weight 111.13 kg Temp Pulse Resp BP Pulse Ox O2 Del Method 97.5 F L 67 18 155/92 97 Room Air 07/09/23 07:01 07/09/23 07:01 07/09/23 07:01 07/09/23 07:01 07/09/23 07:01 07/09/23 07:01 Preop Diagnosis: Dysphagia Operation Date: 07/09/23 07:45 Proposed Procedures p 99507 egd w/balloon dialation R13.10,K21.9(Not Applicable) - Amos Holman DO Familial anesthetic complications: None Was Beta Gaby taken within 24 hours: N/A (Last took on Friday) Was Clonidine taken within 24 hours: N/A Last intake: Intake Last Liquid Date 07/08/23 Last Liquid Time 23:00 Last Solid Date 07/08/23 Last Solid Time 16:00 Social No alcohol and No tobacco Exam alert, oriented x 3, clear to auscultation bilaterally and regular rate & rhythm Airway Submandibular: within normal limits Cervical ROM: within normal limits Mallampati: Class III Dentition: false History/ROS No significant history except as noted and No significant complaints Pulmonary Asthma, Chronic Obstructive Pulmonary Disease, Exertional Dyspnea and Sleep Apnea (Wears CPAP) CV/HEM Hypertension Conclusion: 1. ? Normal EKG response to Lexiscan infusion 2.? No Lexiscan induced chest pain or cardiac arrhythmia. 3.? Normal blood pressure and heart rate response. 4.? Sestamibi/sestamibi perfusion scan pending; see separate report. CONCLUSIONS ?LV systolic function normal with EF of 60 to 65%. ?Grade 1 diastolic dysfunction ?Trace mitral regurgitation ?Mild tricuspid regurgitation. ?No comparison studies are available None reported Hepatic None reported GI Gastroesophageal Reflux Disease (None this morning) and Peptic Ulcer Disease Dysphagia Metabolic Diabetes Mellitus and Morbid Obesity Musc/skel Lower Back Pain and Osteoarthritis/DJD Neuropsych Anxiety, Depression and Neuropathy Anesthetic Plan ASA status: 3 Anesthesia: Anesthesia Evaluation, General and MAC Risk of > 500 ml blood loss (7ml/kg in children): No Medications/Allergies Home Medications Medication Instructions Recorded Confirmed Last Taken Type albuterol sulfate 90 mcg/actuation 1 - 2 puff inhalation Q4H PRN 02/23/21 07/07/23 07/07/23 History aerosol inhaler Shortness Of Breath aspirin 81 mg chewable tablet 81 mg PO QAM 02/23/21 07/07/23 07/07/23 History budesonide-formoterol HFA 160 2 puff inhalation Q12H 03/27/21 07/07/23 07/07/23 History mcg-4.5 mcg/actuation aerosol inhaler (Symbicort) ipratropium 0.5 mg-albuterol 3 mg 3 ml inhalation DAILY PRN 03/27/21 07/07/23 07/07/23 History (2.5 mg base)/3 mL nebulization Shortness Of Breath soln polyethylene glycol 3350 17 17 g PO DAILY PRN Constipation 03/27/21 07/07/23 06/25/23 History gram/dose oral powder (Miralax) night splint to left #1 ea 08/20/21 07/07/23 07/09/22 Rx chlorthalidone 50 mg tablet 50 mg PO QAM 01/30/22 07/07/23 07/07/23 History hydroxychloroquine 200 mg tablet 200 mg PO BID 01/30/22 07/07/23 07/07/23 History losartan 100 mg tablet 100 mg PO QAM 01/30/22 07/07/23 07/07/23 History montelukast 10 mg tablet 10 mg PO DAILY 01/30/22 07/07/23 07/07/23 History diclofenac sodium 1 % topical gel 4 g topical QID PRN Pain #100 grams 05/16/22 07/07/23 11/26/22 Rx (Voltaren Arthritis Pain) amlodipine 10 mg tablet 10 mg PO BEDTIME 08/15/22 07/07/23 07/07/23 History Night Splint #1 ea 08/21/22 07/07/23 Unknown Rx Night Splint #1 ea 09/17/22 07/07/23 Unknown Rx Cam Boot to the left #1 ea 09/30/22 07/07/23 Unknown Rx docusate sodium 100 mg capsule 100 mg PO BID PRN stool softener 11/04/22 07/07/23 07/07/23 History (Colace) isosorbide mononitrate 60 mg 60 mg PO DAILY 11/04/22 07/07/23 07/07/23 History tablet,extended release 24 hr nitroglycerin 0.4 mg sublingual 0.4 mg sublingual Q5M PRN Chest 11/04/22 07/07/23 2 Weeks Ago History tablet (Nitrostat) Pain ~06/23/23 promethazine 25 mg tablet 25 mg PO Q6H PRN nausea and 11/04/22 07/07/23 07/07/23 Rx vomiting #20 tabs dicyclomine 20 mg tablet 20 mg PO QID #120 tabs 11/12/22 07/07/23 07/07/23 Rx diclofenac sodium 50 mg 50 mg PO Q12H PRN pain #20 tabs 12/19/22 07/07/23 07/07/23 Rx tablet,delayed release topiramate 100 mg tablet (Topamax) 100 mg PO DAILY 90 days #90 tabs 01/27/23 07/07/23 07/07/23 Rx blood pressure monitor #1 ea 01/31/23 07/07/23 Unknown Rx hydralazine 100 mg tablet 100 mg PO TID #300 tabs 01/31/23 07/07/23 07/07/23 Rx clonazepam 0.5 mg tablet 0.5 mg PO BID PRN anxiety/panic 02/26/23 07/07/23 07/07/23 Rx #60 tabs methocarbamol 750 mg tablet 750 mg PO TID back pain #14 tabs 03/20/23 07/07/23 07/07/23 Rx naproxen 500 mg tablet (Naprosyn) 500 mg PO BID PRN pain #20 tabs 04/23/23 07/07/23 07/06/23 Rx Thumb Spika Splint #1 ea 04/28/23 07/07/23 Unknown Rx fremanezumab-vfrm 225 mg/1.5 mL 225 mg SUBCUT .Q30DAY 05/16/23 07/07/23 3 Days Ago History subcutaneous auto-injector (Ajovy) ~06/24/23 pantoprazole 40 mg tablet,delayed 40 mg PO BID 6 weeks #84 tabs 06/04/23 07/07/23 07/07/23 Rx release (Protonix) custom insoles #1 ea 06/25/23 07/07/23 Unknown Rx sulfamethoxazole 800 1 tab PO BID #14 tabs 06/25/23 07/07/23 07/07/23 Rx mg-trimethoprim 160 mg tablet (Bactrim DS) fluoxetine 40 mg capsule 80 mg PO QAM 06/27/23 07/07/23 07/07/23 History gabapentin 300 mg capsule See Rx Instructions .Route .COMPLEX 06/27/23 07/07/23 07/07/23 History hydrocodone 7.5 mg-acetaminophen 1 tab PO Q4H PRN Pain 06/27/23 07/07/23 07/07/23 History 325 mg tablet metoprolol tartrate 100 mg tablet 100 mg PO BID 06/27/23 07/07/23 07/07/23 History prazosin 5 mg capsule 5 mg PO BEDTIME 06/27/23 07/07/23 07/07/23 History quetiapine 300 mg tablet,extended 300 mg PO BEDTIME 06/27/23 07/07/23 07/07/23 History release 24 hr trazodone 150 mg tablet 150 mg PO BEDTIME 06/27/23 07/07/23 07/07/23 History nitroglycerin 0.6 mg/hr 1 patch topical DAILY PRN Pain 07/07/23 07/07/23 06/25/23 History transdermal 24 hour patch Allergies Allergy/AdvReac Type Severity Reaction Status Date / Time No Known Allergies Allergy Verified 07/08/23 07:17 Current Medications Generic Name Dose Route Start Last Admin Trade Name Freq PRN Reason Stop Dose Admin Sodium Chloride 1,000 mls @ 30 mls/hr 07/09/23 06:45 07/09/23 07:06 Sodium Chloride 0.9% IV 07/10/23 06:44 30 mls/hr .Q24H JAMES Administration PFSH Anesthesia Medical History Abnormal reflex COPD (chronic obstructive pulmonary disease) GERD (gastroesophageal reflux disease) Helicobacter pylori gastritis HTN (hypertension) Neck pain [facility] History History of cholecystectomy History of esophagogastroduodenoscopy Hx of section Hx of colonoscopy [facility] Hx of hysterectomy Family History Family/Other Cancer Diabetes Father Diabetes Hyperlipidemia Hypertension Stroke Mother Hypertension Stroke CAD (coronary artery disease) Rheumatoid arthritis Other Major depressive disorder, recurrent severe without psychotic features Panic disorder [episodic paroxysmal anxiety] Post-traumatic stress disorder, chronic Social History Smoking and tobacco status: never smoked Second hand smoke exposure: Yes Alcohol intake: never Substance/Drug Use: never Data Anesthesia Cardiac Studies: Echocardiogram 10/16/22 Sestamibi Stress Test (Cardiology) 12/05
--- NOTE | 2023-07-09 07:49 | PM.HP ---
Providers/Chief Complaint Primary Care Provider: Alpehs Garcia MD Chief Complaint: R13.10, K21.9 History of Present Illness Nani Pryor is a 52 year old female Review of Systems General: Reports: 10 or more systems reviewed and unremarkable except in HPI and below Medications/Allergies Home Medications Medication Instructions Recorded Confirmed Last Taken Type albuterol sulfate 90 mcg/actuation 1 - 2 puff inhalation Q4H PRN 02/23/21 07/07/23 07/07/23 History aerosol inhaler Shortness Of Breath aspirin 81 mg chewable tablet 81 mg PO QAM 02/23/21 07/07/23 07/07/23 History budesonide-formoterol HFA 160 2 puff inhalation Q12H 03/27/21 07/07/23 07/07/23 History mcg-4.5 mcg/actuation aerosol inhaler (Symbicort) ipratropium 0.5 mg-albuterol 3 mg 3 ml inhalation DAILY PRN 03/27/21 07/07/23 07/07/23 History (2.5 mg base)/3 mL nebulization Shortness Of Breath soln polyethylene glycol 3350 17 17 g PO DAILY PRN Constipation 03/27/21 07/07/23 06/25/23 History gram/dose oral powder (Miralax) night splint to left #1 ea 08/20/21 07/07/23 07/09/22 Rx chlorthalidone 50 mg tablet 50 mg PO QAM 01/30/22 07/07/23 07/07/23 History hydroxychloroquine 200 mg tablet 200 mg PO BID 01/30/22 07/07/23 07/07/23 History losartan 100 mg tablet 100 mg PO QAM 01/30/22 07/07/23 07/07/23 History montelukast 10 mg tablet 10 mg PO DAILY 01/30/22 07/07/23 07/07/23 History diclofenac sodium 1 % topical gel 4 g topical QID PRN Pain #100 grams 05/16/22 07/07/23 11/26/22 Rx (Voltaren Arthritis Pain) amlodipine 10 mg tablet 10 mg PO BEDTIME 08/15/22 07/07/23 07/07/23 History Night Splint #1 ea 08/21/22 07/07/23 Unknown Rx Night Splint #1 ea 09/17/22 07/07/23 Unknown Rx Cam Boot to the left #1 ea 09/30/22 07/07/23 Unknown Rx docusate sodium 100 mg capsule 100 mg PO BID PRN stool softener 11/04/22 07/07/23 07/07/23 History (Colace) isosorbide mononitrate 60 mg 60 mg PO DAILY 11/04/22 07/07/23 07/07/23 History tablet,extended release 24 hr nitroglycerin 0.4 mg sublingual 0.4 mg sublingual Q5M PRN Chest 11/04/22 07/07/23 2 Weeks Ago History tablet (Nitrostat) Pain ~06/23/23 promethazine 25 mg tablet 25 mg PO Q6H PRN nausea and 11/04/22 07/07/23 07/07/23 Rx vomiting #20 tabs dicyclomine 20 mg tablet 20 mg PO QID #120 tabs 11/12/22 07/07/23 07/07/23 Rx diclofenac sodium 50 mg 50 mg PO Q12H PRN pain #20 tabs 12/19/22 07/07/23 07/07/23 Rx tablet,delayed release topiramate 100 mg tablet (Topamax) 100 mg PO DAILY 90 days #90 tabs 01/27/23 07/07/23 07/07/23 Rx blood pressure monitor #1 ea 01/31/23 07/07/23 Unknown Rx hydralazine 100 mg tablet 100 mg PO TID #300 tabs 01/31/23 07/07/23 07/07/23 Rx clonazepam 0.5 mg tablet 0.5 mg PO BID PRN anxiety/panic 02/26/23 07/07/23 07/07/23 Rx #60 tabs methocarbamol 750 mg tablet 750 mg PO TID back pain #14 tabs 03/20/23 07/07/23 07/07/23 Rx naproxen 500 mg tablet (Naprosyn) 500 mg PO BID PRN pain #20 tabs 04/23/23 07/07/23 07/06/23 Rx Thumb Spika Splint #1 ea 04/28/23 07/07/23 Unknown Rx fremanezumab-vfrm 225 mg/1.5 mL 225 mg SUBCUT .Q30DAY 05/16/2307/07/23 3 Days Ago History subcutaneous auto-injector (Ajovy) ~06/24/23 pantoprazole 40 mg tablet,delayed 40 mg PO BID 6 weeks #84 tabs 06/04/23 07/07/23 07/07/23 Rx release (Protonix) custom insoles #1 ea 06/25/23 07/07/23 Unknown Rx sulfamethoxazole 800 1 tab PO BID #14 tabs 06/25/23 07/07/23 07/07/23 Rx mg-trimethoprim 160 mg tablet (Bactrim DS) fluoxetine 40 mg capsule 80 mg PO QAM 06/27/23 07/07/23 07/07/23 History gabapentin 300 mg capsule See Rx Instructions .Route .COMPLEX 06/27/23 07/07/23 07/07/23 History hydrocodone 7.5 mg-acetaminophen 1 tab PO Q4H PRN Pain 06/27/23 07/07/23 07/07/23 History 325 mg tablet metoprolol tartrate 100 mg tablet 100 mg PO BID 06/27/23 07/07/23 07/07/23 History prazosin 5 mg capsule 5 mg PO BEDTIME 06/27/23 07/07/23 07/07/23 History quetiapine 300 mg tablet,extended 300 mg PO BEDTIME 06/27/23 07/07/23 07/07/23 History release 24 hr trazodone 150 mg tablet 150 mg PO BEDTIME 06/27/23 07/07/23 07/07/23 History nitroglycerin 0.6 mg/hr 1 patch topical DAILY PRN Pain 07/07/23 07/07/23 06/25/23 History transdermal 24 hour patch Allergies Allergy/AdvReac Type Severity Reaction Status Date / Time No Known Allergies Allergy Verified 07/08/23 07:17 PFSH Acute PFSH: Medical History Abnormal reflex COPD (chronic obstructive pulmonary disease) GERD (gastroesophageal reflux disease) Helicobacter pylori gastritis HTN (hypertension) Neck pain Psychiatric care Psychiatric care Jem's ring Surgical History History of cholecystectomy History of esophagogastroduodenoscopy Hx of section Hx of colonoscopy 2020 formerly [facility] Hx of hysterectomy Family History Family/Other Cancer Diabetes Father Diabetes Hyperlipidemia Hypertension Stroke Mother Hypertension Stroke CAD (coronary artery disease) Rheumatoid arthritis Other Major depressive disorder, recurrent severe without psychotic features Panic disorder [episodic paroxysmal anxiety] Post-traumatic stress disorder, chronic Social History Smoking and tobacco status: never smoked Second hand smoke exposure: Yes Alcohol intake: never Substance/Drug Use: never Vitals/I&O/Wt Last Vital Signs Temp 97.5 F L 07/09/23 07:01 Pulse 67 07/09/23 07:01 Resp 18 07/09/23 07:01 BP 155/92 07/09/23 07:01 Pulse Ox 97 07/09/23 07:01 O2 Del Method Room Air 07/09/23 07:01 Weight last 48 hrs Weight 245 lb Weight 245 lb A&P Assessment and plan (1) Dysphagia: (2) GERD (gastroesophageal reflux disease): Plan EGD with possible balloon dilation Attestations Medical Necessity Statement*: Home Coding Level of Care Code Acute Code for Chg Fwd Diagnoses Dysphagia R13.10 GERD (gastroesophageal reflux disease) K21.9
[2023-07-09] MEDS: hyDRALAzine 20 mg/mL INJ 1 mL 10 MG IVP (08:47)
== END 2023-07-09 09:14 | disposition home or self-care (01) ==
PROVIDERS: PCP Family Medicine; Visit Provider Surgery
DX: R13.10 Dysphagia, unspecified (principal); K21.9 Gastro-esophageal reflux disease without esophagitis; K20.90 Esophagitis, unspecified without bleeding; Z79.82 Long term (current) use of aspirin; J44.9 Chronic obstructive pulmonary disease, unspecified; I10 Essential (primary) hypertension; G47.30 Sleep apnea, unspecified; Z87.11 Personal history of peptic ulcer disease; E11.9 Type 2 diabetes mellitus without complications; E66.01 Morbid (severe) obesity due to excess calories; Z68.41 Body mass index [BMI] 40.0-44.9, adult
CPT/HCPCS: 43239; 88305; 88312; 88342; J0360; J2704; J3490; J7030